=== PATIENT | female | born 1930 | race Caucasian/White ===

== ENCOUNTER → 2016-11-22 | Outpatient (CLI) | payer MEDICARE, OTHER ==
[~2016-11-22] MED LIST: AC500T PO; AMLO10TA2 PO; AMLO10TA82 PO; ASP325TEC PO; CIPR500T4 PO; CITA10TA7; CITA10TA70 PO; DCS100C PO; E400C PO; FENO135C PO; FENO135C4 PO; FERR-74 PO; FLUT12AE4 IH; GARL200T PO; GARLIC TABS PO; LACT1CAP8 PO; LOVA40TA2; LOVA40TA2 PO; METO-272 PO; METO25TA2 PO; METO50TA7 PO; NIAC1000 PO; NIAC500T9 PO; OMEP20CA12 PO; OMEP20TA2 PO; OMG1KC PO; OXYGEN; PRD20T PO; TIOT18CA IH; TRAM-21 PO
== END ==
LOC: RAD 15:43
PROVIDERS: ATTEND Internal Medicine Cardiovascular Disease
DX: I73.9 Peripheral vascular disease, unspecified (principal); I10 Essential (primary) hypertension; I25.10 Atherosclerotic heart disease of native coronary artery without angina pectoris
CPT/HCPCS: 93923

== ENCOUNTER → 2017-03-07 | Outpatient (CLI) | payer MEDICARE, OTHER ==
--- NOTE | 2017-03-07 09:57 | Diagnostic Imaging Report ---
PROCEDURE: US Gallbladder. TECHNIQUE: Multiple real-time grayscale images were obtained over the right upper quadrant in various projections. INDICATION: Right upper quadrant pain. FINDINGS: The pancreas is largely obscured by bowel gas. The liver demonstrates no focal mass. Hepatopetal flow in the portal vein seen. Portion of the left hepatic lobe is obscured by bowel gas. The gallbladder demonstrates multiple shadowing mobile stones. There is no wall thickening or pericholecystic fluid. Sonographic Vang sign reportedly negative. The CBD is obscured. The right kidney is 8.8 cm in length with no hydronephrosis or focal lesion. The renal parenchyma is echogenic suggestive of chronic medical renal disease. No fluid collection in the upper right quadrant seen. IMPRESSION: Cholelithiasis. Dictated by: Dictated on workstation # [id number]
== END ==
LOC: RAD 07:19
PROVIDERS: ATTEND Family Medicine
DX: R19.7 Diarrhea, unspecified (principal); K80.20 Calculus of gallbladder without cholecystitis without obstruction
CPT/HCPCS: 76705

== ENCOUNTER → 2017-03-30 | Outpatient (CLI) | payer MEDICARE, OTHER | LOC: CVS 20:22 | PROVIDERS: ATTEND Family Medicine | DX: R19.7 Diarrhea, unspecified (principal) | CPT/HCPCS: 87324; 87449 ==

== ENCOUNTER 2017-04-09 16:50 | Inpatient (IN) | payer MEDICARE, OTHER ==
[~2017-04-09] VITALS: Ht 167.6 cm; Wt 66.7 kg
[2017-04-09] VITALS (16 sets, daily range): BP systolic 120–198; BP diastolic 43–77
[~2017-04-09 16:50] MED LIST changes: -CITA10TA7; +CITA10TA7 PO; -LOVA40TA2
--- NOTE | 2017-04-09 17:10 | ED Abdominal Pain ---
General Stated Complaint: VOMITING BLOOD Source of Information: Patient Exam Limitations: No Limitations History of Present Illness Time Seen By Provider: 17:07 Initial Comments 2. Pubic abdominal pain that began today after having a bowel movement but she has not had for 3 days. She denies fevers or chills. She also reports vomiting once this morning and longterm staff reports that this was blood streaked vomit. However, the patient states he was either blood streaked or it was the cranberry juice that she just been drinking. She had a laparoscopic cholecystectomy the first of this month and spent 8-9 days in the intensive care unit afterwards. She has been in [facility] since returning home. Timing/Duration: 1-2 Days Severity/Quality: Moderate Radiation: No Radiation Allergies and Home Medications Allergies Coded Allergies: codeine (Verified Allergy, Unknown, 12/18/08) morphine (Verified Allergy, Unknown, 12/18/08) prednisone (Unverified Allergy, Unknown, 03/19/14) propoxyphene napsylate (Unverified Allergy, Unknown, 03/19/14) sulfamethoxazole (Verified Allergy, Unknown, 12/18/08) trimethoprim (Verified Allergy, Unknown, 12/18/08) Home Medications Amlodipine Besylate 10 Mg Tablet, 10 MG PO DAILY, (Reported) Aspirin 325 Mg Tabec, 325 MG PO DAILY, (Reported) Ciprofloxacin HCl 500 Mg Tablet, 500 MG PO BID, #14 Prescribed by: ADITHYA DORADO on 07/09/15 0939 Citalopram Hydrobromide 10 Mg Tablet, #90 (Reported) Fenofibric Acid (Choline) 135 Mg Capsule.dr, 135 MG PO HS, (Reported) Ferrous Sulfate 325 Mg Tablet, 325 MG PO HS, (Reported) Garlic 200 Mg Tablet, 200 MG PO BID, (Reported) Lovastatin 40 Mg Tablet, #90 (Reported) Metoprolol Succinate 50 Mg Tab.er.24h, 50 MG PO DAILY, (Reported) Niacin 500 Mg Tablet, 500 MG PO HS, (Reported) [place] 3 Polyunsat Fatty Acids 1,000 Mg Cap, 1,000 MG PO BID, (Reported) Omeprazole 20 Mg Capsule.dr, 20 MG PO DAILY, (Reported) Vitamin E Acetate 400 Unit Capsule, 400 UNIT PO HS, (Reported) Review of Systems Constitutional: see HPI EENTM: No Symptoms Reported Respiratory: No Symptoms Reported Cardiovascular: No Symptoms Reported Gastrointestinal: See HPI, Abdominal Pain, Nausea, Vomiting Genitourinary: No Symptoms Reported Musculoskeletal: no symptoms reported Skin: no symptoms reported Psychiatric/Neurological: No Symptoms Reported Endocrine: No Symptoms Reported Past Zpzwdgw-Dhxncd-Qmxlvq Hx Patient Social History Former Smoker/When Quit: Aug 30, 1980 Recent Foreign Travel: No Contact w/Someone Who Travel: No Immunizations Up To Date Tetanus Booster (TDap): Less than 5yrs Date of Pneumonia Vaccine: Oct 16, 2010 Date of Influenza Vaccine: Aug 20, 2013 Surgeries HX Surgeries: Yes (LEFT HAMMERTOE REPAIR, VENTRAL HERNIA REPAIR) Surgeries: Abdominal, Orthopedic Respiratory Hx Respiratory Disorders: Yes (O2 AT 2L AT NIGHT) Respiratory Disorders: Pneumonia Cardiovascular Hx 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) Cardiac Disorders: High Cholesterol, Hypertension Neurological Hx Neurological Disorders: No Reproductive System Hx Reproductive Disorders: No Sexually Transmitted Disease: No NAIL TECH History: Menopausal Genitourinary Hx Genitourinary Disorders: Yes Genitourinary Disorders: Renal Failure Gastrointestinal Hx Gastrointestinal Disorders: Yes (VENTRAL HERNIA REPAIR) Gastrointestinal Disorders: Abdominal Hernia Musculoskeletal Hx Musculoskeletal Disorders: Yes (LUMBAR RADICULOPATHY) Musculoskeletal Disorders: Arthritis, Chronic Back Pain Endocrine Hx Endocrine Disorders: No HEENT HX ENT Disorders: No Cancer Hx Cancer: No Psychosocial Hx Psychiatric Problems: No Behavioral Health Disorders: Anxiety Integumentary HX Skin/Integumentary Disorder: No Blood Transfusions Hx Blood Disorders: Yes (ANEMIA) Adverse Reaction to a Blood Tr: No Family Medical History Significant Family History: Heart Disease, Diabetes, Hypertension Family Medial History: Physical Exam Vital Signs VS - Last 72 Hours, by Label 04/09/17 16:52 Temp 96.0 Pulse 72 Resp 18 B/P (MAP) 102/76 Pulse Ox 96 O2 Delivery Room Air Capillary Refill : General Appearance: WD/WN, no apparent distress, other (frail,), thin HEENT: PERRL/EOMI, normal ENT inspection Neck: non-tender, full range of motion Respiratory: no respiratory distress, no accessory muscle use Cardiovascular: regular rate, rhythm, systolic murmur Gastrointestinal: normal bowel sounds, non tender, soft, other (she has a baseball sized hematoma to the right abdominal wall at the trocar insertion site.) Extremities: normal range of motion, non-tender, normal inspection Neurologic/Psychiatric: alert, normal mood/affect, oriented x 3 Skin: normal color, warm/dry Progress/Results/Core Measures Results/Orders Lab Results Laboratory Tests Test 04/09/17 17:04 Range/Units White Blood Count 13.3 H 4.3-11.0 10^3/uL Red Blood Count 2.27 L 4.35-5.85 10^6/uL Hemoglobin 6.9 *L 11.5-16.0 G/DL Hematocrit 23 L 35-52 % Mean Corpuscular Volume 100 H 80-99 FL Mean Corpuscular Hemoglobin 30 25-34 PG Mean Corpuscular Hemoglobin Concent 30 L 32-36 G/DL Red Cell Distribution Width 17.6 H 10.0-14.5 % Platelet Count 288 130-400 10^3/uL Mean Platelet Volume 10.9 H 7.4-10.4 FL Neutrophils (%) (Auto) 79 H 42-75 % Lymphocytes (%) (Auto) 15 12-44 % Monocytes (%) (Auto) 5 0-12 % Eosinophils (%) (Auto) 0 0-10 % Basophils (%) (Auto) 1 0-10 % Neutrophils # (Auto) 10.5 H 1.8-7.8 X 10^3 Lymphocytes # (Auto) 2.0 1.0-4.0 X 10^3 Monocytes # (Auto) 0.7 0.0-1.0 X 10^3 Eosinophils # (Auto) 0.1 0.0-0.3 10^3/uL Basophils # (Auto) 0.1 0.0-0.1 10^3/uL Lipase 75 8-78 U/L My Orders Orders - ZAK LIMA APRN Cbc With Automated Diff (04/09/17 16:56) Lipase (04/09/17 16:56) Ua Culture If Indicated (04/09/17 16:56) Saline Lock/Iv-Start (04/09/17 16:56) Ct Abdomen/Pelvis Wo (04/09/17 17:07) Red Cells Leukocytes Reduced (04/09/17 17:23) Pantoprazole Injection (Protonix Injecti (04/09/17 17:30) Type And Screen (04/09/17 17:23) Octreotide Injection (Sandostatin Inje (04/09/17 17:30) Ns (Ivpb) (Sodium C... W/Octreotide Inj (04/09/17 17:30) Chest 1 View, Ap/Pa Only (04/09/17 17:25) Octreotide Drip (Octreotide Drip) (04/09/17 17:33) Octreotide Drip (Octreotide Drip) (04/09/17 17:37) Ns (Ivpb) (Sodium Chloride 0.9% Ivpb Bag (04/09/17 17:37) Medications Given in ED Current Medications Medications Dose Ordered Sig/Hillary Route Start Time Stop Time Status Last Admin Dose Admin Octreotide Acetate 50 mcg ONCE ONCE IV 04/09/17 17:30 04/09/17 17:31 DC 04/09/17 17:59 50 MCG Pantoprazole 40 mg ONCE ONCE IV 04/09/17 17:30 04/09/17 17:31 DC 04/09/17 17:46 40 MG Sodium Chloride 100 ml @ ud STK-MED ONCE .ROUTE 04/09/17 17:37 04/09/17 17:43 DC 04/09/17 17:59 100 MLS/HR Vital Signs/I&O Vital Sign - Last 12Hours 04/09/17 16:52 Temp 96.0 Pulse 72 Resp 18 B/P (MAP) 102/76 Pulse Ox 96 O2 Delivery Room Air Diagnostic Imaging Diagonstic Imaging: Xray, CT Comments NAME: MADIE PISANO REC#: [id number] PT STATUS: REG ER : 1930 PHYSICIAN: ZAK LIMA SPINNER FRAME ADMIT DATE: 04/09/17/ER Draft Date of Exam:04/09/17 CT ABDOMEN/PELVIS WO PROCEDURE: CT abdomen and pelvis without contrast. TECHNIQUE: Multiple contiguous axial images were obtained through the abdomen and pelvis without the use of intravenous contrast. INDICATION: Bloody emesis. Right lower quadrant pain. COMPARISON: None available. FINDINGS: Evaluation of the abdominal viscera is mildly limited without contrast. Lower chest: Ill-defined airspace opacities within the lingula are age-indeterminate. Calcified right lower lobe pulmonary granulomas are noted. No pericardial pleural effusion. Atherosclerotic calcifications of the coronary arteries are present. Peritoneum: No free intraperitoneal air or fluid. Liver and biliary system: Unenhanced liver is normal. Cholecystectomy. No biliary duct dilatation. Spleen and Pancreas: Numerous calcified splenic granulomas are present. No splenomegaly. Unenhanced pancreas is grossly normal. Adrenals: Normal. tract: No renal or ureteral calculi. No obstructive uropathy. Uterus is poorly visualized and may be surgically absent versus atrophied due to patient's age. There is no suspicious adnexal mass. GI tract: Stomach is partially distended with heterogeneous debris, intrinsically. There is abnormal circumferential wall thickening of the distal esophagus and small hiatus hernia. Surgical changes are present about the gastroesophageal junction. No bowel obstruction. Sigmoid colon diverticulosis. There is minimal inflammation around a few of the sigmoid colon diverticula, suggestive of mild diverticulitis. No perforation or abscess formation. Vasculature and Lymph nodes: Normal caliber aorta with extensive atherosclerotic calcifications. No abdominal or pelvic lymphadenopathy. Musculoskeletal: No concerning osseous lesion. There is a subcutaneous mixed attenuation fluid collection in the lower anterior abdominal wall which measures 7.6 x 8.5 x 5.6 cm. This is superficial to the rectus abdominis muscle. Right hip bipolar hemiarthroplasty. Degenerative changes in the lumbar spine. IMPRESSION: 1. Heterogeneous increased attenuation of the stomach may relate to food debris. However, subacute intraluminal hemorrhage could also have this appearance given patient's reported bloody emesis. Abnormal wall thickening of the distal esophagus could relate to esophagitis. There are surgical changes at the GE junction. Consider gastroenterology consultation and correlation with patient's history. 2. Sigmoid colon diverticulosis with a mild inflammation around a few of the diverticula, suggestive of mild active diverticulitis. No perforation or abscess formation. 3. There is a mixed attenuation fluid collection in the right lower quadrant anterior abdominal wall which measures up to 8.5 cm. This likely represents a hematoma. Correlation with patient's history of blood thinner use is advised. Dictated on workstation # [id number] Dict: 04/09/171736 Trans: 04/09/17 174 [facility] [id number] Interpreted by: TRACEY RICCI MD Electronically signed by: NAME: MAD[facility] PISANO [facility] REC#: [id number] PT STATUS: REG ER : 1930 PHYSICIAN: ZAK LIMA SPINNER FRAME ADMIT DATE: 04/09/17/ER Draft Date of Exam:04/09/17 CHEST 1 VIEW, AP/PA ONLY INDICATION: Bloody emesis. COMPARISON: CT abdomen and pelvis performed concurrently. EXAMINATION: Single view of the chest was obtained. FINDINGS: Ill-defined airspace opacities are present in the bilateral upper lobes and lingula. No pleural effusion or pneumothorax. Borderline cardiomegaly. Atherosclerotic aorta. Normal pulmonary vasculature. IMPRESSION: New multifocal airspace opacities are likely due to multifocal pneumonia. Followup PA and lateral chest radiographs after appropriate medical management are advised in four weeks to ensure resolution. Dictated on workstation # [id number] Dict: 04/09/17 1750 Trans: 04/09/17 1759 [facility] [id number] Interpreted by: TRACEY RICCI MD Electronically signed by: Departure Communication Time/Spoke to Admitting Phy: 17:[address] Pappas notified of bleeding. In ER to see patient. Vitals stable. Type and screen being done. Time/Spoke to Consulting Physi: 18:28 Communication/Consulting Dr. DORADO notified of consult. Progress Notes 1751-vomitted bright red blood while in CT. Vitals stable. Impression Impression: Primary Impression: Upper GI hemorrhage Additional Impression: Pneumonia Disposition: ADMITTED INPATIENT Condition: Critical Decision to Admit Reason: Admit from ER (General) Decision to Admit/Date: Apr 09, 2017 Time/Decision to Admit Time: 18:29 Departure-Patient Inst. Referrals: ADITHYA DORADO MD (PCP/Family) Primary Care Physician ZAK LIMA APRN Apr 09, 2017 17:10
[2017-04-09 17:16] LABS: BASOPHILS # (AUTO) 0.1 10^3/uL (0.0-0.1); BASOPHILS % (AUTO) 1 % (0-10); EOSINOPHILS # (AUTO) 0.1 10^3/uL (0.0-0.3); EOSINOPHILS % (AUTO) 0 % (0-10); LYMPHOCYTES % (AUTO) 15 % (12-44); MEAN CORPUSCULAR HEMOGLOBIN 30 PG (25-34); MEAN CORPUSCULAR HGB CONC 30 G/DL (32-36); MEAN CORPUSCULAR VOLUME 100 FL (80-99); MEAN PLATELET VOLUME 10.9 FL (7.4-10.4); MONOCYTES # (AUTO) 0.7 X 10^3 (0.0-1.0); MONOCYTES % (AUTO) 5 % (0-12); NEUTROPHILS # (AUTO) 10.5 X 10^3 (1.8-7.8); NEUTROPHILS % (AUTO) 79 % (42-75); PLATELET COUNT 288 10^3/uL (130-400); RED BLOOD COUNT 2.27 10^6/uL (4.35-5.85); RED CELL DISTRIBUTION WIDTH 17.6 % (10.0-14.5); WHITE BLOOD COUNT 13.3 10^3/uL (4.3-11.0)
[2017-04-09] MEDS ORDERED: OCTREOTIDE (FOR SQ USE) 100 MCG/ML VIAL (SandoSTATIN) IV ONE (17:30)
[2017-04-09] MEDS ORDERED: OCTREOTIDE INJECTION 500 MCG in NS (IVPB) 99 ML IV SCH (17:30)
[2017-04-09] MEDS ORDERED: PANTOPRAZOLE 40 MG/10 ML (PROTONIX) VIAL IV ONE (17:30)
[2017-04-09] MEDS ORDERED: OCTREOTIDE DRIP KIT ONE ×2 (17:33→17:37)
[2017-04-09] MEDS ORDERED: NS (IVPB) 100 ML ONE (17:37)
--- NOTE | 2017-04-09 17:48 | Diagnostic Imaging Report ---
PROCEDURE: CT abdomen and pelvis without contrast. TECHNIQUE: Multiple contiguous axial images were obtained through the abdomen and pelvis without the use of intravenous contrast. INDICATION: Bloody emesis. Right lower quadrant pain. COMPARISON: None available. FINDINGS: Evaluation of the abdominal viscera is mildly limited without contrast. Lower chest: Ill-defined airspace opacities within the lingula are age-indeterminate. Calcified right lower lobe pulmonary granulomas are noted. No pericardial pleural effusion. Atherosclerotic calcifications of the coronary arteries are present. Peritoneum: No free intraperitoneal air or fluid. Liver and biliary system: Unenhanced liver is normal. Cholecystectomy. No biliary duct dilatation. Spleen and Pancreas: Numerous calcified splenic granulomas are present. No splenomegaly. Unenhanced pancreas is grossly normal. Adrenals: Normal. tract: No renal or ureteral calculi. No obstructive uropathy. Uterus is poorly visualized and may be surgically absent versus atrophied due to patient's age. There is no suspicious adnexal mass. GI tract: Stomach is partially distended with heterogeneous debris, intrinsically. There is abnormal circumferential wall thickening of the distal esophagus and small hiatus hernia. Surgical changes are present about the gastroesophageal junction. No bowel obstruction. Sigmoid colon diverticulosis. There is minimal inflammation around a few of the sigmoid colon diverticula, suggestive of mild diverticulitis. No perforation or abscess formation. Vasculature and Lymph nodes: Normal caliber aorta with extensive atherosclerotic calcifications. No abdominal or pelvic lymphadenopathy. Musculoskeletal: No concerning osseous lesion. There is a subcutaneous mixed attenuation fluid collection in the lower anterior abdominal wall which measures 7.6 x 8.5 x 5.6 cm. This is superficial to the rectus abdominis muscle. Right hip bipolar hemiarthroplasty. Degenerative changes in the lumbar spine. IMPRESSION: 1. Heterogeneous increased attenuation of the stomach may relate to food debris. However, subacute intraluminal hemorrhage could also have this appearance given patient's reported bloody emesis. Abnormal wall thickening of the distal esophagus could relate to esophagitis. There are surgical changes at the GE junction. Consider gastroenterology consultation and correlation with patient's history. 2. Sigmoid colon diverticulosis with a mild inflammation around a few of the diverticula, suggestive of mild active diverticulitis. No perforation or abscess formation. 3. There is a mixed attenuation fluid collection in the right lower quadrant anterior abdominal wall which measures up to 8.5 cm. This likely represents a hematoma. Correlation with patient's history of blood thinner use is advised. Dictated by: Dictated on workstation # [id number]
--- NOTE | 2017-04-09 17:59 | Diagnostic Imaging Report ---
INDICATION: Bloody emesis. COMPARISON: CT abdomen and pelvis performed concurrently. EXAMINATION: Single view of the chest was obtained. FINDINGS: Ill-defined airspace opacities are present in the bilateral upper lobes and lingula. No pleural effusion or pneumothorax. Borderline cardiomegaly. Atherosclerotic aorta. Normal pulmonary vasculature. IMPRESSION: New multifocal airspace opacities are likely due to multifocal pneumonia. Followup PA and lateral chest radiographs after appropriate medical management are advised in four weeks to ensure resolution. Dictated by: Dictated on workstation # [id number]
[2017-04-09] MEDS ORDERED: PIPERACILLIN SODIUM/TAZOBACTAM 4.5 GM in NS (IVPB) 100 ML IV ONE (18:15)
[2017-04-09] MEDS ORDERED: fentaNYL INJECTION 100 MCG/2 ML AMP IVP ONE (18:30)
[2017-04-09] MEDS ORDERED: HURRICAINE EXT TUBE (BENZOCAINE) ONE (18:58)
[2017-04-09] MEDS ORDERED: EPINEPHrine INJECTION 1 MG/ML AMP ONE (18:58)
[2017-04-09 19:03] LABS: ALBUMIN 2.6 GM/DL (3.2-4.5); BILIRUBIN,TOTAL 0.4 MG/DL (0.1-1.0); CALCIUM 8.2 MG/DL (8.5-10.1); CREATININE SERUM 2.28 MG/DL (0.60-1.30); ICTERUS -0.1 (-100-1.9); TOTAL PROTEIN 6.2 GM/DL (6.4-8.2)
[2017-04-09 19:04] LABS: POTASSIUM 6.7 MMOL/L (3.6-5.0)
[2017-04-09] MEDS ORDERED: NS IV 500 ML 500 ML ONE (19:18)
--- NOTE | 2017-04-09 19:28 | Consultation ---
History of Present Illness History of Present Illness Patient Consulted On(mireya/time) 04/09/17 19:22 Date of Admission History of Present Illness Consult requested by Jimy Mae for GI bleed Patient is an 86 year old female who began having emesis this morning. Noted to have blood streaks in it. Patient in ED had hematemesis. Patient not feeling well for last 2 day or so. Having difficulty with bowel movement and slight abdominal pain. Has had hematoma ruq that has been stable but more tender, since having laparoscopic cholecystectomy at [facility]. Family reports having extended ICU stay following cholecystectomy. Patient went to [facility] after being discharged. Prior to that she was living at home independently. Having hematemesis. Hgb found to be 6.9 being transfused. Patient feeling weaker than normal. Allergies and Home Medications Allergies Coded Allergies: codeine (Verified Allergy, Unknown, 12/18/08) morphine (Verified Allergy, Unknown, 12/18/08) prednisone (Unverified Allergy, Unknown, 03/19/14) propoxyphene napsylate (Unverified Allergy, Unknown, 03/19/14) sulfamethoxazole (Verified Allergy, Unknown, 12/18/08) trimethoprim (Verified Allergy, Unknown, 12/18/08) Home Medications Amlodipine Besylate 10 Mg Tablet, 10 MG PO DAILY, (Reported) Aspirin 325 Mg Tabec, 325 MG PO DAILY, (Reported) Ciprofloxacin HCl 500 Mg Tablet, 500 MG PO BID, #14 Prescribed by: ADITHYA DORADO on 07/09/15 0939 Citalopram Hydrobromide 10 Mg Tablet, #90 (Reported) Fenofibric Acid (Choline) 135 Mg Capsule.dr, 135 MG PO HS, (Reported) Ferrous Sulfate 325 Mg Tablet, 325 MG PO HS, (Reported) Garlic 200 Mg Tablet, 200 MG PO BID, (Reported) Lovastatin 40 Mg Tablet, #90 (Reported) Metoprolol Succinate 50 Mg Tab.er.24h, 50 MG PO DAILY, (Reported) Niacin 500 Mg Tablet, 500 MG PO HS, (Reported) [place] 3 Polyunsat Fatty Acids 1,000 Mg Cap, 1,000 MG PO BID, (Reported) Omeprazole 20 Mg Capsule.dr, 20 MG PO DAILY, (Reported) Vitamin E Acetate 400 Unit Capsule, 400 UNIT PO HS, (Reported) Past Iqmnnrj-Iojjkg-Cclako Hx Patient Social History Alcohol Use: Denies Use Recreational Drug Use: No Smoking Status: Never a Smoker Former Smoker/When Quit: Aug 30, 1980 Recent Foreign Travel: No Contact w/Someone Who Travel: No Recent Infectious Disease Expo: No Recent Hopitalizations: Yes (2009 ENDOCARDIACOMY) Immunizations Up To Date Tetanus Booster (TDap): Less than 5yrs Date of Pneumonia Vaccine: Oct 16, 2010 Date of Influenza Vaccine: Aug 20, 2013 Surgeries HX Surgeries: Yes (LEFT HAMMERTOE REPAIR, VENTRAL HERNIA REPAIR) Surgeries: Abdominal, Gallbladder, Orthopedic Respiratory Hx Respiratory Disorders: Yes (O2 AT 2L AT NIGHT) Respiratory Disorders: Pneumonia Cardiovascular Hx 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) Cardiac Disorders: High Cholesterol, Hypertension Neurological Hx Neurological Disorders: No Reproductive System Hx Reproductive Disorders: No Sexually Transmitted Disease: No 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 Genitourinary Hx Genitourinary Disorders: Yes Genitourinary Disorders: Renal Failure Gastrointestinal Hx Gastrointestinal Disorders: Yes (VENTRAL HERNIA REPAIR) Gastrointestinal Disorders: Abdominal Hernia, C-Diff Musculoskeletal Hx Musculoskeletal Disorders: Yes (LUMBAR RADICULOPATHY) Musculoskeletal Disorders: Arthritis, Chronic Back Pain Endocrine Hx Endocrine Disorders: No HEENT HX ENT Disorders: No Cancer Hx Cancer: No Psychosocial Hx Psychiatric Problems: No Behavioral Health Disorders: Anxiety Integumentary HX Skin/Integumentary Disorder: No Blood Transfusions Hx Blood Disorders: Yes (ANEMIA) Adverse Reaction to a Blood Tr: No Family Medical History Significant Family History: Heart Disease, Diabetes, Hypertension Family Medial History: Review of Systems-General Date Seen by Provider: Apr 09, 2017 Time Seen by Provider: 19:22 Constitutional: weakness EENTM: no symptoms reported Respiratory: no symptoms reported Cardiovascular: no symptoms reported Gastrointestinal: see HPI Genitourinary: no symptoms reported Musculoskeletal: no symptoms reported Skin: no symptoms reported Psychiatric/Neurological: No Symptoms Reported Physical Exam-General Problems Physical Exam Vital Signs Vital Sign - Last 12Hours 04/09/17 16:52 Temp 96.0 Pulse 72 Resp 18 B/P (MAP) 102/76 Pulse Ox 96 O2 Delivery Room Air Capillary Refill : Less Than 3 Seconds General Appearance: no apparent distress HEENT: normal ENT inspection Neck: supple Respiratory: no respiratory distress, no accessory muscle use Cardiovascular: regular rate, rhythm Gastrointestinal: other (slight tenderness right lower quadrant, hematoma ruq tender size of baseball) Rectal: deferred Back: normal inspection Extremities: normal range of motion Neurologic/Psychiatric: alert, oriented x 3 Skin: cool, pallor Data Review Labs Laboratory Tests 04/09/17 17:04: White Blood Count 13.3H, Red Blood Count 2.27L, Hemoglobin 6.9*L, Hematocrit 23L , Mean Corpuscular Volume 100H, Mean Corpuscular Hemoglobin 30, Mean Corpuscular Hemoglobin Concent 30L, Red Cell Distribution Width 17.6H, Platelet Count 288, Mean Platelet Volume 10.9H, Neutrophils (%) (Auto) 79H, Lymphocytes ( %) (Auto) 15, Monocytes (%) (Auto) 5, Eosinophils (%) (Auto) 0, Basophils (%) ( Auto) 1, Neutrophils # (Auto) 10.5H, Lymphocytes # (Auto) 2.0, Monocytes # (Auto ) 0.7, Eosinophils # (Auto) 0.1, Basophils # (Auto) 0.1, Sodium Level 137, Potassium Level 6.7*H, Chloride Level 114H, Carbon Dioxide Level 14L, Anion Gap 9, Blood Urea Nitrogen 59H, Creatinine 2.28H, Estimat Glomerular Filtration Rate 20, BUN/Creatinine Ratio 26H, Glucose Level 169H, Calcium Level 8.2L, Total Bilirubin 0.4, Aspartate Amino Transf (AST/SGOT) 37H, Alanine Aminotransferase (ALT/SGPT) 13, Alkaline Phosphatase 49, Total Protein 6.2L, Albumin 2.6L, Lipase 75 Assessment/Plan Assessment/Plan Assessment/Plan gi bleed-upper with hematemesis acute diverticulitis hematoma abdominal ruq from recent cholecystectomy anemia secondary to gi bleed patient and family discussed risks and benefits of egd and wish to proceed iv abx for diverticulitis hematoma on abdomen should resolve on own protonix 40 mg IV BID NPO IV fluids admitted to ICU Ct scan thickening of esophagus and debris in stomach, surgical changes of stomach, diverticulosis with some inflammation c/w diverticulitis ADARSH DIOP DO Apr 09, 2017 19:28
[2017-04-09] MEDS ORDERED: ONDANSETRON 4 MG/2 ML (SDV) Z0FRAN IV PRN (20:30)
[2017-04-09] MEDS ORDERED: proPOfol 200 MG/20 ML (DIPRIVAN) VIAL IV ONE (20:31)
--- NOTE | 2017-04-09 20:46 | Progress Note-Post Operative ---
Post-Operative Progess Note Surgeon (s)/Relief Charge Nurse (s) Surgeon ADARSH DIOP DO Relief Charge Nurse: NA Pre-Operative Diagnosis gi bleed Post-Operative Diagnosis upper GI bleed, large gastric clot, no active bleeding, duodenitis Procedure & Operative Findings Date of Procedure 04/09/17 Procedure Performed/Findings EGD Anesthesia Type per pupil personnel services director Estimated Blood Loss Estimated blood loss (mL): none Specimens/Packing Specimens Removed none ADARSH DIOP DO Apr 09, 2017 8:46 pm
[2017-04-09] MEDS ORDERED: HURRICAINE EXT TUBE (BENZOCAINE) XX ONE (21:00)
[2017-04-09] MEDS: OCTREOTIDE INJECTION 500 MCG in NS (IVPB) 99 ML IV SCH (21:41)
[2017-04-09] MEDS ORDERED: fentaNYL INJECTION 100 MCG/2 ML AMP ONE (21:53)
[2017-04-09] MEDS ORDERED: hydrALAZINE (APESOLINE) 20 MG/ML VIAL ONE (21:53)
[2017-04-09] MEDS: NS IV 1000 ML 1,000 ML IV SCH (22:04)
[2017-04-09] MEDS ORDERED: hydrALAZINE (APESOLINE) 20 MG/ML VIAL IV PRN (22:45)
[2017-04-09 22:50] LABS: BILIRUBIN,URINE NEGATIVE (NEGATIVE); KETONES,URINE NEGATIVE (NEGATIVE); LEUKOCYTE ESTERASE ,URINE 3+ (NEGATIVE); NITRITE,URINE NEGATIVE (NEGATIVE); PH,URINE 5 (5-9); PROTEIN,URINE 1+ (NEGATIVE); UROBILINOGEN,URINE NORMAL (NORMAL)
--- NOTE | 2017-04-09 23:40 | OPERATIVE REPORT ---
DATE OF SERVICE: PREOPERATIVE DIAGNOSIS: GI bleed. POSTOPERATIVE DIAGNOSES: Upper gastrointestinal bleed, large gastric clot, no active bleeding, duodenitis. PROCEDURE: EGD. 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 SURGEON: Adarsh Pappas DO. ESTIMATED BLOOD LOSS: None. COMPLICATIONS: None. INDICATIONS: The patient is an 86-year-old female who presented to the Emergency Department with hematemesis. She was found to have a hemoglobin of 6.9 and had a small amount of bright red blood that she had vomited earlier. She and family were explained risks and benefits of procedure and wished to proceed with the procedure. DESCRIPTION OF PROCEDURE: The patient was in the Intensive Care Unit. A timeout was performed. Once anesthetic was took place, the scope was inserted into the mouth, down the esophagus, which was then encountered in the distal portion with small amount of dark clot present at the GE junction. Scope was then continuing to be inserted into the stomach where a significant amount of clot was present. A very minimal bright red appearing blood present. Scope was continuing to be reinserted into the duodenum, which had a clot and some slightly bright red blood present as well. Copious amount of irrigation was used to irrigate the duodenum. There are no polyps or masses present. In the first portion of the duodenum, there were some slightly erythematous changes present, but no active bleeding. Scope was continued to be retracted back into the stomach where a significant amount of time was used to irrigate the stomach in trying to break up the clot, so the mucosal surfaces could be visualized. The clot was extremely adherent and the scope itself was used to try to suction and pushed some off the clot off which still was unable to be done. Again, copious amounts of irrigation were used to irrigate with my hand flushing and by a powered pump, but the clot was unable to be broken up. The scope was also retroflexed noting the clot going up into and towards the cardia and there is evidence of previous wrap. Again, copious amounts of irrigation were used to irrigate. There are no signs of any active bleeding present. After a long attempt was removing the clot, it was felt more appropriate to leave the clot and see how patient continues to do for this forward. Scope was then returned to its normal position, slowly withdrawn back into the distal esophagus. There were no active bleeding in the distal esophagus. There was one area that appears to be maybe having a small healing ulcer, but no significant erythematous changes, no polyps or masses present. Scope was continued to be slowly retracted until completely removed, noting no other pathology. The patient tolerated the procedure well without any complications. RECOMMENDATIONS: The patient with upper gastrointestinal bleed likely from a gastric ulcer. There was significant clot which could not be broken up in the mucosal surfaces, unable to be visualized underneath it. There does not appear to be any active bleeding. I will continue conservative management with transfusing as needed. Following hemoglobin, keeping the patient n.p.o. The patient is on octreotide and Protonix. If patient has continued blood loss, we will repeat EGD. If patient stabilizes well, we would recommend repeat colonoscopy in approximately 6 weeks to reevaluate. This was discussed with the patient and family. Job ID: [id number] DocumentID: [id number] Dictated Date: 04/09/2017 20:52:33 Stock Ranch Supervisor Date: 04/09/2017 23:39:42 Dictated By: ADARSH PAPPAS DO
[2017-04-10] VITALS (24 sets, daily range): BP systolic 115–190; BP diastolic 46–102
[2017-04-10] MEDS: PIPERACILLIN SODIUM/TAZOBACTAM 4.5 GM in NS (IVPB) 100 ML IV SCH ×3 (01:21→20:22)
[2017-04-10] MEDS ORDERED: OCTREOTIDE DRIP KIT ONE ×2 (02:46→02:50)
[2017-04-10] MEDS ORDERED: NS (IVPB) 100 ML ONE (02:50)
[2017-04-10] MEDS: OCTREOTIDE INJECTION 500 MCG in NS (IVPB) 99 ML IV SCH ×3 (03:15→22:30)
[2017-04-10] MEDS: fentaNYL INJECTION 100 MCG/2 ML AMP IV PRN ×3 (03:16→20:22)
[2017-04-10 05:55] LABS: ALBUMIN 2.8 GM/DL (3.2-4.5); BILIRUBIN,TOTAL 0.9 MG/DL (0.1-1.0); CALCIUM 8.3 MG/DL (8.5-10.1); CREATININE SERUM 2.36 MG/DL (0.60-1.30); ICTERUS 0.6 (-100-1.9); TOTAL PROTEIN 6.5 GM/DL (6.4-8.2)
[2017-04-10 05:57] LABS: POTASSIUM 6.2 MMOL/L (3.6-5.0)
--- NOTE | 2017-04-10 08:45 | Pulmonary Consultation ---
History of Present Illness History of Present Illness Date of Consultation 04/10/17 08:39 Time Seen by Provider: 08:39 Date of Admission History of Present Illness 86yo presented via EMS from [facility] with hematemesis and upper GIB. Pt was recently at [facility] and is s/p cholecystectomy. Pt had extended ICU stay at [facility] after surgery. Pt also complains of constipation and is very weak. Labs and radiology reviewed. Pt is requiring oxygen and CXR shows multifocal PNA. On admission Hb was 6.9 and she is now S/p transfusion and s/p EGD. I am consulted for ICU/pulmonary management. Allergies and Home Medications Allergies Coded Allergies: codeine (Verified Allergy, Unknown, 12/18/08) morphine (Verified Allergy, Unknown, 12/18/08) prednisone (Unverified Allergy, Unknown, 03/19/14) propoxyphene napsylate (Unverified Allergy, Unknown, 03/19/14) sulfamethoxazole (Verified Allergy, Unknown, 12/18/08) trimethoprim (Verified Allergy, Unknown, 12/18/08) Home Medications Amlodipine Besylate 10 Mg Tablet, 10 MG PO DAILY, (Reported) Aspirin 325 Mg Tabec, 325 MG PO DAILY, (Reported) Ciprofloxacin HCl 500 Mg Tablet, 500 MG PO BID, #14 Prescribed by: ADITHYA DORADO on 07/09/15 0939 Citalopram Hydrobromide 10 Mg Tablet, #90 (Reported) Fenofibric Acid (Choline) 135 Mg Capsule.dr, 135 MG PO HS, (Reported) Ferrous Sulfate 325 Mg Tablet, 325 MG PO HS, (Reported) Garlic 200 Mg Tablet, 200 MG PO BID, (Reported) Lovastatin 40 Mg Tablet, #90 (Reported) Metoprolol Succinate 50 Mg Tab.er.24h, 50 MG PO DAILY, (Reported) Niacin 500 Mg Tablet, 500 MG PO HS, (Reported) [place] 3 Polyunsat Fatty Acids 1,000 Mg Cap, 1,000 MG PO BID, (Reported) Omeprazole 20 Mg Capsule.dr, 20 MG PO DAILY, (Reported) Vitamin E Acetate 400 Unit Capsule, 400 UNIT PO HS, (Reported) Past Hjpmuzw-Xdndly-Dlkknb Hx Patient Social History Alcohol Use: Denies Use Recreational Drug Use: No Smoking Status: Never a Smoker Former Smoker/When Quit: Aug 30, 1980 Recent Foreign Travel: No Contact w/Someone Who Travel: No Recent Infectious Disease Expo: No Recent Hopitalizations: Yes (2009 ENDOCARDIACOMY) Physical Abuse Screen: No Sexual Abuse: No Immunizations Up To Date Tetanus Booster (TDap): Less than 5yrs Date of Pneumonia Vaccine: Oct 16, 2010 Date of Influenza Vaccine: Aug 20, 2013 Surgeries HX Surgeries: Yes (LEFT HAMMERTOE REPAIR, VENTRAL HERNIA REPAIR) Surgeries: Abdominal, Gallbladder, Orthopedic Respiratory Hx Respiratory Disorders: Yes (O2 AT 2L AT NIGHT) Respiratory Disorders: Pneumonia Cardiovascular Hx 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) Cardiac Disorders: High Cholesterol, Hypertension Neurological Hx Neurological Disorders: No Reproductive System : No Hx Reproductive Disorders: No Sexually Transmitted Disease: No 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 Genitourinary Hx Genitourinary Disorders: Yes Genitourinary Disorders: Renal Failure Gastrointestinal Hx Gastrointestinal Disorders: Yes (VENTRAL HERNIA REPAIR) Gastrointestinal Disorders: Abdominal Hernia, C-Diff Musculoskeletal Hx Musculoskeletal Disorders: Yes (LUMBAR RADICULOPATHY) Musculoskeletal Disorders: Arthritis, Chronic Back Pain Endocrine Hx Endocrine Disorders: No HEENT HX ENT Disorders: No Cancer Hx Cancer: No Psychosocial Hx Psychiatric Problems: No Behavioral Health Disorders: Anxiety Integumentary HX Skin/Integumentary Disorder: No Blood Transfusions Hx Blood Disorders: Yes (ANEMIA) Adverse Reaction to a Blood Tr: No Family Medical History Significant Family History: Heart Disease, Diabetes, Hypertension Family Medial History: Exam Exam Vital Signs Date Time Temp Pulse Resp B/P (MAP) Pulse Ox O2 Delivery O2 Flow Rate FiO2 04/10/17 08:03 Nasal Cannula 3.00 04/10/17 05:00 92 26 100 Nasal Cannula 3.00 04/10/17 04:00 91 17 172/73 98 Nasal Cannula 3.00 04/10/17 04:00 100 Nasal Cannula 3.00 04/10/17 03:00 95 22 149/66 99 Nasal Cannula 3.00 04/10/17 02:00 87 23 179/82 99 Nasal Cannula 3.00 04/10/17 01:00 89 04/10/17 01:00 87 25 164/69 99 Nasal Cannula 3.00 04/10/17 01:00 89 04/10/17 00:24 97.2 78 9 190/77 98 Nasal Cannula 3.00 04/10/17 00:16 97.2 04/10/17 00:00 100 Nasal Cannula 3.00 04/10/17 00:00 87 22 188/75 100 Nasal Cannula 3.00 04/09/17 23:30 79 18 177/70 99 Nasal Cannula 3.00 04/09/17 23:00 77 15 156/66 99 Nasal Cannula 3.00 04/09/17 22:30 97.6 78 22 134/57 94 Nasal Cannula 3.00 04/09/17 22:30 80 23 141/53 99 Nasal Cannula 3.00 04/09/17 22:29 97.1 77 25 149/70 96 OxyMask 3.00 04/09/17 22:06 97.2 79 22 175/72 96 OxyMask 8.00 04/09/17 22:00 75 23 175/72 100 OxyMask 3.00 04/09/17 21:30 73 24 198/77 99 OxyMask 5.00 04/09/17 21:00 74 25 178/63 98 OxyMask 10.00 04/09/17 20:30 69 30 139/67 90 Nasal Cannula 4.00 04/09/17 20:00 87 27 133/63 93 Nasal Cannula 4.00 04/09/17 19:47 97.0 93 16 124/71 92 Nasal Cannula 4.00 04/09/17 19:45 93 24 144/73 99 Nasal Cannula 2.00 04/09/17 19:32 97.2 82 14 137/56 100 Nasal Cannula 2.00 04/09/17 19:30 88 28 137/56 98 Nasal Cannula 2.00 04/09/17 19:20 Nasal Cannula 2.00 04/09/17 19:15 73 26 122/43 100 Nasal Cannula 2.00 04/09/17 19:00 96 Nasal Cannula 2.00 04/09/17 19:00 78 19 100 Nasal Cannula 2.00 04/09/17 19:00 79 04/09/17 19:00 79 04/09/17 18:45 97.4 78 16 120/53 100 Nasal Cannula 2.00 04/09/17 18:26 74 18 100 04/09/17 16:52 96.0 72 18 102/76 96 Room Air I & O 04/10/17 07:00 Intake Total 350 ml Output Total 250 ml Balance 100 ml General Appearance: No Apparent Distress, WD/WN Capillary Refill: Less Than 3 Seconds Gastrointestinal: other (slight tenderness right lower quadrant, hematoma ruq tender size of baseball) Results Lab Laboratory Tests 04/09/17 17:04 04/10/17 05:10 Assessment/Plan Assessment/Plan Acute upper GIB -S/P EGD and transfusion -octreotide gtt -change protonix to BID 40mg IV -SCDs for DVT ppx HCAP multifocal -Zosyn add renal dosed vancomycin -SVNS Debility/dementia -consulte PT/OT Metabolic acidosis -monitor -IVF 255 Clinical Quality Measures DVT/VTE Risk/Contraindication: Risk Factor Score Per Nursin RFS Level Per Nursing on Admit: 3=High JACK DEGROOT DO Apr 10, 2017 08:45
[2017-04-10] MEDS ORDERED: PANTOPRAZOLE 40 MG/10 ML (PROTONIX) VIAL IV SCH (09:00)
--- NOTE | 2017-04-10 09:17 | History & Physicial ---
History of Present Illness History of Present Illness Reason for visit/HPI PT IS AN 86 Y/O FEMALE WHO IS WELL KNOWN TO ME FROM CLINIC. SHE PRESENTED TO THE HOSPITAL AFTER HAVING WEAKNESS AND ABDOMINAL PAIN AND THEN AN EPISODE OF BLOODY EMESIS. PER STAFF, THEY DAY BEFORE SHE HAD NAUSEA WITH CONSTIPATION, WAS GIVEN AN ENEMA WITH POOR OUTCOME, THEN THE NEXT DAY HAD THE BLOODY EMESIS. SHE WAS FOUND TO HAVE BLOODY EMESIS IN THE EMERGENCY DEPARTMENT. SHE REPORTS THAT SHE HAS BEEN FEELING POORLY FOR A FEW DAYS PRIOR TO HOSPITALIZATION. ABOUT A MONTH AGO SHE WAS HOSPITALIZED WITH ACUTE CHOLECYSTITIS AND CHOLECYSTECTOMY. SHE WAS IN THE ICU FOR SEVERAL DAYS DUE TO ANEMIA, ACUTE ON CHRONIC RENAL FAILURE AND DEVELOPED CDIFF INFECTION - SHE WAS THEN DISCHARGED TO THE [facility] FOR STRENGTHENING. Date of Admission Apr 09, 2017 at 18:00 Time Seen by Provider: 09:00 I consulted on this patient on 04/10/17 09:17 Attending Physician Bill Diop DO Admitting Physician Adithya Garcia MD Consult Allergies and Home Medications Allergies Coded Allergies: codeine (Verified Allergy, Unknown, 12/18/08) morphine (Verified Allergy, Unknown, 12/18/08) prednisone (Unverified Allergy, Unknown, 03/19/14) propoxyphene napsylate (Unverified Allergy, Unknown, 03/19/14) sulfamethoxazole (Verified Allergy, Unknown, 12/18/08) trimethoprim (Verified Allergy, Unknown, 12/18/08) Home Medications Acetaminophen 650 Mg Tablet.er, 650 MG PO Q6H PRN for PAIN-MILD, (Reported) Amlodipine Besylate 5 Mg Tablet, 5 MG PO DAILY, (Reported) Ascorbic Acid 1,000 Mg Tablet, 1,000 MG PO DAILY, (Reported) Aspirin 325 Mg Tabec, 325 MG PO DAILY, (Reported) Cholecalciferol (Vitamin D3) 5,000 Unit Tablet, 5,000 UNIT PO DAILY, (Reported) Cholestyramine (with Sugar) 4 Gm Powd.pack, 4 GM PO BID, (Reported) Citalopram Hydrobromide 10 Mg Tablet, 10 MG PO DAILY, (Reported) Diphenoxylate HCl/Atropine 1 Each Tablet, 1 TAB PO Q6H PRN for DIARRHEA, ( Reported) Fenofibric Acid (Choline) 135 Mg Capsule.dr, 135 MG PO HS, (Reported) Ferrous Sulfate 325 Mg Tablet, 325 MG PO BID, (Reported) Furosemide 40 Mg Tablet, 40 MG PO DAILY, (Reported) Lovastatin 40 Mg Tablet, 40 MG PO HS, (Reported) Magnesium Oxide 400 Mg Tablet, 400 MG PO BID, (Reported) Metoprolol Succinate 50 Mg Tab.er.24h, 50 MG PO BID, (Reported) Multivitamin with Minerals 1 Each Tablet, 1 TAB PO DAILY, (Reported) Nystatin 15 Gm Cream..g., TP TID for 10 Days, (Reported) 10 DAY THERAPY STOP DATE 04-14-17 Ondansetron HCl 4 Mg Tab, 4 MG PO Q6H PRN for NAUSEA/VOMITING-1ST LINE, ( Reported) Simethicone 80 Mg Tab.chew, 160 MG PO TID, (Reported) START DATE 03-31-17 END DATE 04-14-17 TAKES 2 (80MG) TABLETS Simethicone 80 Mg Tab.chew, 160 MG PO TID PRN for GAS, (Reported) START DATE 04-15-17 TAKES 2 (80MG) TABLETS Past Gmwgpmi-Rhzzzi-Dvgbpk Hx Patient Social History Marrital Status: Living Status: LIVES AT HOME WITH HER GRANDDAUGHTER - NOW AT [facility] Employed/Student: retired Alcohol Use: Denies Use Recreational Drug Use: No Smoking Status: Never a Smoker Former smoker/When Quit: Aug 30, 1980 2nd Hand Smoke Exposure: Yes Physical Abuse Screen: No Sexual Abuse: No Recent Foreign Travel: No Contact w/other who traveled: No Recent Hopitalizations: Yes (2009 ENDOCARDIACOMY) Recent Infectious Disease Expo: No Immunizations Up To Date Tetanus Booster (TDap): Less than 5yrs Date of Pneumonia Vaccine: Oct 16, 2010 Date of Influenza Vaccine: Aug 20, 2013 Surgeries HX Surgeries: Yes (LEFT HAMMERTOE REPAIR, VENTRAL HERNIA REPAIR) Surgeries: Abdominal, Gallbladder, Orthopedic Respiratory Hx Respiratory Disorders: Yes (O2 AT 2L AT NIGHT) Cardiovascular Hx Cardiovascular Disorders: Yes (CAROTID ARTERY DISEASE/BILATERAL CAROTID) Cardiac Disorders: High Cholesterol, Hypertension Neurological Hx Neurological Disorders: No Reproductive System : No Hx Reproductive Disorders: No Sexually Transmitted Disease: No Female Reproductive Disorders: Denies Genitourinary Hx Genitourinary Disorders: Yes Genitourinary Disorders: Renal Failure Gastrointestinal Hx Gastrointestinal Disorders: Yes (VENTRAL HERNIA REPAIR) Gastrointestinal Disorders: Abdominal Hernia, C-Diff Musculoskeletal Hx Musculoskeletal Disorders: Yes (LUMBAR RADICULOPATHY) Musculoskeletal Disorders: Arthritis, Chronic Back Pain Endocrine Hx Endocrine Disorders: No HEENT HX ENT Disorders: No Cancer Hx Cancer: No Psychosocial Hx Psychiatric Problems: No Behavioral Health Disorders: Anxiety Integumentary HX Skin/Integumentary Disorder: No Blood Transfusions Hx Blood Disorders: Yes (ANEMIA) Adverse Reaction to a Blood Tr: No Reviewed Nursing Assessment Reviewed/Agree w Nursing PMH: Yes Family Medical History Significant Family History: Heart Disease, Diabetes, Hypertension Family Hx: Constitutional: No chills, No fever, malaise, weakness EENTM: No hoarseness, No mouth pain, No nose pain, No throat swelling Respiratory: No cough, No dyspnea on exertion, No short of breath Cardiovascular: No chest pain, No edema, No palpitations Gastrointestinal: RLQ, LLQ, abdominal pain (RLQ) Genitourinary: frequency, incontinence, other (CASTANO IN PLACE) Musculoskeletal: back pain, muscle weakness Skin: other (PRESSURE ULCER OF RIGHT HEEL, SACRAL PRESSURE ULCER) Psychiatric/Neurological: Denies Anxiety, Denies Depressed, Weakness All Other Systems Reviewed Negative Unless Noted: Yes Physical Exam Vital Signs Vital Sign - Last 12Hours 04/09/17 04/09/17 16:52 18:45 Temp 96.0 Pulse 72 Resp 18 B/P (MAP) 102/76 Pulse Ox 96 O2 Delivery Room Air O2 Flow Rate 2.00 Capillary Refill : Less Than 3 Seconds General Appearance: WD/WN, Mild Distress HEENT: PERRL/EOMI, Other (DRY MUCOSAL SURFACE) Neck: Full Range of Motion, Supple Respiratory: Chest Non Tender, No Accessory Muscle Use, Decreased Breath Sounds (IN BASES) Cardiovascular: Regular Rate, Rhythm, Systolic Murmur Gastrointestinal: Normal Bowel Sounds, Soft, Tenderness (EPIGASTRIUM AND BILATERAL LOWER QUADRANTS) Extremity: Normal Capillary Refill, Normal Range of Motion, Non Tender, No Calf Tenderness, No Pedal Edema Neurologic/Psychiatric: Alert, Oriented x3, No Motor/Sensory Deficits, Normal Mood/Affect Skin: Other (HEALING PRESSURE ULCER ON MEDIAL LEFT FOOT/ANKLE AND NEW AREA OF BOGGINESS ON BOTTOM OF HEEL ON LEFT, SACRAL DECUBITUS ULCER - VERY SMALL AREA LESS THAN 2CM) Assessment/Plan Assessment and Plan ACUTE GASTROINTESTINAL BLEED SEVERE ANEMIA PNEUMONIA HYPERTENSION WEAKNESS DEPRESSION CONSTIPATION ACUTE GASTROINTESTINAL BLEED - DEFER TO DR. DIOP - PT ON PROTONIX, OCTREOTIDE , MONITOR H AND H AND TRANSFUSE PRN. SEVERE ANEMIA - -TRANSFUSE PRN - MONITOR HEMOGLOBIN, WAITING ON ANEMIA ANALYZER - MAY NEED TO CONSIDER ERYTHROPOIETIN PNEUMONIA - PT ON IV ANTIBIOTICS - CONTINUE WITH ZOSYN, GIVE VANCOMYCIN AND MONITOR SERIAL CHEST XRAYS. HYPERTENSION - CHRONIC - RESTART HOME MEDICATIONS. WEAKNESS - WILL START PHYSICAL THERAPY ONCE GI BLEEDING IS STABILIZED. DEPRESSION -RESTART CELEXA CONSTIPATION - - MONITOR OUTPUT, PT RECENTLY HAD CDIFF, NEED TO START ON PROBIOTIC SOON PT ABLE TO TAKE PO. DVT PROPHYLAXIS - WILL USE SCD'S, BUT WILL NOT GIVE LOVENOX DUE TO HER GI BLEEDING Problems: Admission Diagnosis ACUTE GASTROINTESTINAL BLEED SEVERE ANEMIA PNEUMONIA HYPERTENSION WEAKNESS DEPRESSION CONSTIPATION Clinical Quality Measures DVT/VTE Risk/Contraindication: Risk Factor Score Per Nursin RFS Level Per Nursing on Admit: 3=High ADITHYA GARCIA MD Apr 10, 2017 09:17
--- NOTE | 2017-04-10 09:29 | Progress Note ---
Subjective Time Seen by Provider: 08:25 Subjective/Events-last exam Patient sleeping in bed. Easily aroused. Even respirations. No distress. No n/v or bloody stools since EGD. Patient reports minimal pain to abd. Objective Exam Vital Signs Date Time Temp Pulse Resp B/P (MAP) Pulse Ox O2 Delivery O2 Flow Rate FiO2 04/10/17 08:03 Nasal Cannula 3.00 04/10/17 07:00 89 04/10/17 05:00 92 26 100 Nasal Cannula 3.00 04/10/17 04:00 91 17 172/73 98 Nasal Cannula 3.00 04/10/17 04:00 100 Nasal Cannula 3.00 04/10/17 03:00 95 22 149/66 99 Nasal Cannula 3.00 04/10/17 02:00 87 23 179/82 99 Nasal Cannula 3.00 04/10/17 01:00 89 04/10/17 01:00 87 25 164/69 99 Nasal Cannula 3.00 04/10/17 01:00 89 04/10/17 00:24 97.2 78 9 190/77 98 Nasal Cannula 3.00 04/10/17 00:16 97.2 04/10/17 00:00 100 Nasal Cannula 3.00 04/10/17 00:00 87 22 188/75 100 Nasal Cannula 3.00 04/09/17 23:30 79 18 177/70 99 Nasal Cannula 3.00 04/09/17 23:00 77 15 156/66 99 Nasal Cannula 3.00 04/09/17 22:30 97.6 78 22 134/57 94 Nasal Cannula 3.00 04/09/17 22:30 80 23 141/53 99 Nasal Cannula 3.00 04/09/17 22:29 97.1 77 25 149/70 96 OxyMask 3.00 04/09/17 22:06 97.2 79 22 175/72 96 OxyMask 8.00 04/09/17 22:00 75 23 175/72 100 OxyMask 3.00 04/09/17 21:30 73 24 198/77 99 OxyMask 5.00 04/09/17 21:00 74 25 178/63 98 OxyMask 10.00 04/09/17 20:30 69 30 139/67 90 Nasal Cannula 4.00 04/09/17 20:00 87 27 133/63 93 Nasal Cannula 4.00 04/09/17 19:47 97.0 93 16 124/71 92 Nasal Cannula 4.00 04/09/17 19:45 93 24 144/73 99 Nasal Cannula 2.00 04/09/17 19:32 97.2 82 14 137/56 100 Nasal Cannula 2.00 04/09/17 19:30 88 28 137/56 98 Nasal Cannula 2.00 04/09/17 19:20 Nasal Cannula 2.00 04/09/17 19:15 73 26 122/43 100 Nasal Cannula 2.00 04/09/17 19:00 96 Nasal Cannula 2.00 04/09/17 19:00 78 19 100 Nasal Cannula 2.00 04/09/17 19:00 79 04/09/17 19:00 79 04/09/17 18:45 97.4 78 16 120/53 100 Nasal Cannula 2.00 04/09/17 18:26 74 18 100 04/09/17 16:52 96.0 72 18 102/76 96 Room Air I & O 04/10/17 07:00 Intake Total 350 ml Output Total 250 ml Balance 100 ml Capillary Refill : Less Than 3 Seconds General Appearance: No Apparent Distress, WD/WN Neck: Non Tender Respiratory: Chest Non Tender, No Accessory Muscle Use, No Respiratory Distress Cardiovascular: Regular Rate, Rhythm Gastrointestinal: non tender, soft, no organomegaly, other (slight tenderness right lower quadrant, hematoma ruq tender size of baseball) Extremity: Non Tender, No Calf Tenderness, No Pedal Edema Neurologic/Psychiatric: Normal Mood/Affect Results Lab Laboratory Tests Test 04/09/17 17:04 04/09/17 22:43 04/10/17 05:10 Range/Units White Blood Count 13.3 H 4.3-11.0 10^3/uL Red Blood Count 2.27 L 4.35-5.85 10^6/uL Hemoglobin 6.9 *L 9.7 #L 11.5-16.0 G/DL Hematocrit 23 L 29 L 35-52 % Mean Corpuscular Volume 100 H 80-99 FL Mean Corpuscular Hemoglobin 30 25-34 PG Mean Corpuscular Hemoglobin Concent 30 L 32-36 G/DL Red Cell Distribution Width 17.6 H 10.0-14.5 % Platelet Count 288 130-400 10^3/uL Mean Platelet Volume 10.9 H 7.4-10.4 FL Neutrophils (%) (Auto) 79 H 42-75 % Lymphocytes (%) (Auto) 15 12-44 % Monocytes (%) (Auto) 5 0-12 % Eosinophils (%) (Auto) 0 0-10 % Basophils (%) (Auto) 1 0-10 % Neutrophils # (Auto) 10.5 H 1.8-7.8 X 10^3 Lymphocytes # (Auto) 2.0 1.0-4.0 X 10^3 Monocytes # (Auto) 0.7 0.0-1.0 X 10^3 Eosinophils # (Auto) 0.1 0.0-0.3 10^3/uL Basophils # (Auto) 0.1 0.0-0.1 10^3/uL Sodium Level 137 139 135-145 MMOL/L Potassium Level 6.7 *H 6.2 H 3.6-5.0 MMOL/L Chloride Level 114 H 113 H 98-107 MMOL/L Carbon Dioxide Level 14 L 15 L 21-32 MMOL/L Anion Gap 9 11 5-14 MMOL/L Blood Urea Nitrogen 59 H 68 H 7-18 MG/DL Creatinine 2.28 H 2.36 H 0.60-1.30 MG/DL Estimat Glomerular Filtration Rate 20 19 BUN/Creatinine Ratio 26 H 29 H 0-20 Glucose Level 169 H 145 H 70-105 MG/DL Calcium Level 8.2 L 8.3 L 8.5-10.1 MG/DL Total Bilirubin 0.4 0.9 0.1-1.0 MG/DL Aspartate Amino Transf (AST/SGOT) 37 H 28 5-34 U/L Alanine Aminotransferase (ALT/SGPT) 13 12 0-55 U/L Alkaline Phosphatase 49 48 40-136 U/L Total Protein 6.2 L 6.5 6.4-8.2 GM/DL Albumin 2.6 L 2.8 L 3.2-4.5 GM/DL Lipase 75 8-78 U/L Urine Color YELLOW Urine Clarity SLIGHTLY CLOUDY Urine pH 5 5-9 Urine Specific Newman 1.015 L 1.016-1.022 Urine Protein 1+ H NEGATIVE Urine Glucose (UA) NEGATIVE NEGATIVE Urine Ketones NEGATIVE NEGATIVE Urine Nitrite NEGATIVE NEGATIVE Urine Bilirubin NEGATIVE NEGATIVE Urine Urobilinogen NORMAL NORMAL MG/DL Urine Leukocyte Esterase 3+ H NEGATIVE Urine RBC (Auto) NEGATIVE NEGATIVE Urine RBC NONE /HPF Urine WBC 10-25 H /HPF Urine Crystals NONE /LPF Urine Bacteria LARGE H /HPF Urine Casts NONE /LPF Urine Mucus NEGATIVE /LPF Urine Culture Indicated YES Laboratory Tests 04/09/17 17:04: White Blood Count 13.3H, Red Blood Count 2.27L, Hemoglobin 6.9*L, Hematocrit 23L , Mean Corpuscular Volume 100H, Mean Corpuscular Hemoglobin 30, Mean Corpuscular Hemoglobin Concent 30L, Red Cell Distribution Width 17.6H, Platelet Count 288, Mean Platelet Volume 10.9H, Neutrophils (%) (Auto) 79H, Lymphocytes ( %) (Auto) 15, Monocytes (%) (Auto) 5, Eosinophils (%) (Auto) 0, Basophils (%) ( Auto) 1, Neutrophils # (Auto) 10.5H, Lymphocytes # (Auto) 2.0, Monocytes # (Auto ) 0.7, Eosinophils # (Auto) 0.1, Basophils # (Auto) 0.1, Sodium Level 137, Potassium Level 6.7*H, Chloride Level 114H, Carbon Dioxide Level 14L, Anion Gap 9, Blood Urea Nitrogen 59H, Creatinine 2.28H, Estimat Glomerular Filtration Rate 20, BUN/Creatinine Ratio 26H, Glucose Level 169H, Calcium Level 8.2L, Total Bilirubin 0.4, Aspartate Amino Transf (AST/SGOT) 37H, Alanine Aminotransferase (ALT/SGPT) 13, Alkaline Phosphatase 49, Total Protein 6.2L, Albumin 2.6L, Lipase 75 04/09/17 22:43: Urine Color YELLOW, Urine Clarity SLIGHTLY CLOUDY, Urine pH 5, Urine Specific Newman 1.015L, Urine Protein 1+H, Urine Glucose (UA) NEGATIVE, Urine Ketones NEGATIVE, Urine Nitrite NEGATIVE, Urine Bilirubin NEGATIVE, Urine Urobilinogen NORMAL, Urine Leukocyte Esterase 3+H, Urine RBC (Auto) NEGATIVE, Urine RBC NONE , Urine WBC 10-25H, Urine Crystals NONE, Urine Bacteria LARGEH, Urine Casts NONE , Urine Mucus NEGATIVE, Urine Culture Indicated YES 04/10/17 05:10: Hemoglobin 9.7#L, Hematocrit 29L, Sodium Level 139, Potassium Level 6.2H, Chloride Level 113H, Carbon Dioxide Level 15L, Anion Gap 11, Blood Urea Nitrogen 68H, Creatinine 2.36H, Estimat Glomerular Filtration Rate 19, BUN/ Creatinine Ratio 29H, Glucose Level 145H, Calcium Level 8.3L, Total Bilirubin 0.9, Aspartate Amino Transf (AST/SGOT) 28, Alanine Aminotransferase (ALT/SGPT) 12, Alkaline Phosphatase 48, Total Protein 6.5, Albumin 2.8L Assessment/Plan Assessment/Plan Assessment/Plan gi bleed-upper with hematemesis. H&H 9.7 and 27 acute diverticulitis hematoma abdominal ruq from recent cholecystectomy anemia secondary to gi bleed iv abx for diverticulitis protonix 40 mg IV BID IV fluids NPO Mian-Patient reports no more hemoptysis. No abdominal pain. NPO. Transfused PRBC yesterday. No new complaints. General no acute distress heart reg lungs nonlabored abdomen soft nontender, right upper quadrant hematoma unchanged ext nontender agree with assessment above plan protonix bid, ABx for diverticulitis, NPO, follow hgb repeat egd outpatient but if continues to have significant anemia will do so earlier. Clinical Quality Measures DVT/VTE Risk/Contraindication: Risk Factor Score Per Nursin RFS Level Per Nursing on Admit: 3=High HANNAH OLMSTEAD APRN Apr 10, 2017 9:29 am ADARSH DIOP DO Apr 10, 2017 10:40 am
[2017-04-10] MEDS ORDERED: NYST15CR TP (09:46)
[2017-04-10] MEDS ORDERED: CHOL500044 PO (09:46)
[2017-04-10] MEDS ORDERED: AMLO5TAB2 PO (09:46)
[2017-04-10] MEDS ORDERED: SIME80TA16 PO (09:46)
[2017-04-10] MEDS ORDERED: ACET-2422 PO (09:46)
[2017-04-10] MEDS ORDERED: MAGN400T39 PO (09:46)
[2017-04-10] MEDS ORDERED: MULT-593 PO (09:46)
[2017-04-10] MEDS ORDERED: ASCO10006 PO (09:46)
[2017-04-10] MEDS ORDERED: ONDN4T PO ×2 (09:46)
[2017-04-10] MEDS ORDERED: DIPH1TAB PO (09:46)
[2017-04-10] MEDS ORDERED: CHOL4PAC16 PO (09:46)
[2017-04-10] MEDS ORDERED: FURO40TA4 PO (09:46)
[2017-04-10] MEDS: NS IV 1000 ML 1,000 ML IV SCH ×2 (09:53→23:10)
--- NOTE | 2017-04-10 14:44 | Occ Therapy Progress Note ---
Therapy Progress Note OT order received. Pt. in bed. Granddaughter in room. Pt. adamantly refuses OOB treatment. Spoke with her regarding previous functional abilities. Pt. states that she was at [facility]. States that the therapists made her get up even when she was in a lot of pain, and it "made things worse." OT asks pt. if the goal is to go back home, or to the NH. Pt. won't answer. Granddaughter states, "she wants me to make that decision, but maybe home with home health?" Pt. will look at OT, but quits answering questions. Pt. is educated about starting to get out of bed soon, as she has pneumonia, and needs to be stronger, especially if she wants to go home. Pt. wont verbalize understanding. All needs met and will check back as time allows, as pt. continues to deny out of bed activity. [id number] 1, visit no charge TORIBIO MARTIN OT Apr 10, 2017 14:44
--- NOTE | 2017-04-10 15:23 | Physical Therapy Progress Note ---
Therapy Progress Note Attempted PT eval. Spoke with nursing first. She reported her HgB had dropped and felt that getting pt to the EOB or standing would not be appropriate at this time. She did indicate that ROm of the legs would be okay, however a full assessment could not be completed at this time. Will attempt PT eval tomorrow. GENARO CORDON PT Apr 10, 2017 15:23
--- OUTSIDE RECORDS SUMMARY | 2017-04-10 18:43 | XMS REPORT | Continuity of Care Document ---
Author Author [facility] Organization [facility] Address Unknown Phone Unavailable Allergies Active Description Code Type Severity Reaction Onset Reported/Identified Relationship to Patient Clinical Status Yes codeine [id number] Drug Allergy Unknown N/A 12/18/2008 Yes morphine [id number] Drug Allergy Unknown N/A 12/18/2008 Yes sulfamethoxazole [id number] Drug Allergy Unknown N/A 12/18/2008 Yes trimethoprim [id number] Drug Allergy Unknown N/A 12/18/2008 Yes prednisone [id number] Drug Allergy Unknown N/A 03/19/2014 Yes propoxyphene napsylate [id number] Drug Allergy Unknown N/A 03/19/2014 Medications Problems Date Dx Coded Attending Type Code Diagnosis Diagnosed By 06/21/2011 Ot 272.4 HYPERLIPIDEMIA NEC/NOS 06/21/2011 Ot 388.01 PRESBYACUSIS 06/21/2011 Ot 403.90 HYPTNSV CHR KID DIS, UNSPEC, W CHR KD ST 06/21/2011 Ot 414.01 CORONARY ATHEROSCLEROSIS OF [place] CORON 06/21/2011 Ot 433.10 CAROTID ARTERY OCCLUSION W O CEREBRAL IN 06/21/2011 Ot 530.81 ESOPHAGEAL REFLUX 06/21/2011 Ot 553.3 DIAPHRAGMATIC HERNIA 06/21/2011 Ot 585.9 CHRONIC KIDNEY DISEASE, UNSPECIFIED 06/21/2011 Ot 715.90 OSTEOARTHROS NOS-UNSPEC 06/21/2011 Ot 760.9 MATERNAL COND NOS AFF NB 06/21/2011 Ot 794.31 ABNORM ELECTROCARDIOGRAM 06/21/2011 Ot 799.02 HYPOXEMIA 06/21/2011 Ot V46.2 SUPPLEMENTAL OXYGEN 06/21/2011 Ot V58.66 LONG-TERM (CURRENT) USE OF ASPIRIN 06/21/2011 Ot V58.69 OTH MED,LT,CURRENT USE 08/20/2011 Ot 272.4 HYPERLIPIDEMIA NEC/NOS 08/20/2011 Ot 275.2 DIS MAGNESIUM METABOLISM 08/20/2011 Ot 276.8 HYPOPOTASSEMIA 08/20/2011 Ot 311 DEPRESSIVE DISORDER NEC 08/20/2011 Ot 403.90 HYPTNSV CHR KID DIS, UNSPEC, W CHR KD ST 08/20/2011 Ot 414.01 CORONARY ATHEROSCLEROSIS OF [place] CORON 08/20/2011 Ot 486 PNEUMONIA, ORGANISM NOS 08/20/2011 Ot 553.3 DIAPHRAGMATIC HERNIA 08/20/2011 Ot 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 08/20/2011 Ot 585.9 CHRONIC KIDNEY DISEASE, UNSPECIFIED 08/20/2011 Ot V64.41 LAPAROSCOPIC SURGICAL PROC CONVERTED TO 08/25/2011 Ot 112.0 THRUSH 08/25/2011 Ot 272.4 HYPERLIPIDEMIA NEC/NOS 08/25/2011 Ot 275.2 DIS MAGNESIUM METABOLISM 08/25/2011 Ot 276.8 HYPOPOTASSEMIA 08/25/2011 Ot 285.9 ANEMIA NOS 08/25/2011 Ot 311 DEPRESSIVE DISORDER NEC 08/25/2011 Ot 403.90 HYPTNSV CHR KID DIS, UNSPEC, W CHR KD ST 08/25/2011 Ot 414.01 CORONARY ATHEROSCLEROSIS OF [place] CORON 08/25/2011 Ot 486 PNEUMONIA, ORGANISM NOS 08/25/2011 Ot 585.9 CHRONIC KIDNEY DISEASE, UNSPECIFIED 08/25/2011 Ot V58.75 AFTERCARE POST SURGERY TEETH,ORAL CAVITY 09/11/2012 Ot 285.9 ANEMIA NOS 09/11/2012 Ot 401.9 HYPERTENSION NOS 2012 Ot 285.9 ANEMIA NOS 2012 Ot 401.9 HYPERTENSION NOS 11/12/2012 Ot 272.4 HYPERLIPIDEMIA NEC/NOS 11/12/2012 Ot 311 DEPRESSIVE DISORDER NEC 11/12/2012 Ot 403.90 HYPTNSV CHR KID DIS, UNSPEC, W CHR KD ST 11/12/2012 Ot 414.01 CORONARY ATHEROSCLEROSIS OF [place] CORON 11/12/2012 Ot 496 CHR AIRWAY OBSTRUCT NEC 11/12/2012 Ot 553.21 INCISIONAL HERNIA 11/12/2012 Ot 568.0 PERITONEAL ZLCVXYGDE-TRJD-CQ/INF 11/12/2012 Ot 585.9 CHRONIC KIDNEY DISEASE, UNSPECIFIED 11/12/2012 Ot V04.81 ND FOR PROPHYLACTIC VACCIN AND INOCULATI 11/12/2012 Ot V15.82 HISTORY OF TOBACCO USE 12/08/2012 Ot 053.9 HERPES ZOSTER NOS 12/08/2012 Ot 272.4 HYPERLIPIDEMIA NEC/NOS 12/08/2012 Ot 285.9 ANEMIA NOS 12/08/2012 Ot 311 DEPRESSIVE DISORDER NEC 12/08/2012 Ot 403.90 HYPTNSV CHR KID DIS, UNSPEC, W CHR KD ST 12/08/2012 Ot 486 PNEUMONIA, ORGANISM NOS 12/08/2012 Ot 496 CHR AIRWAY OBSTRUCT NEC 12/08/2012 Ot 530.81 ESOPHAGEAL REFLUX 12/08/2012 Ot 564.00 UNSPEC CONSTIPATION 12/08/2012 Ot 585.3 CHRONIC KIDNEY DISEASE, STAGE III (MODER 12/08/2012 Ot 715.90 OSTEOARTHROS NOS-UNSPEC 12/14/2012 Ot 053.9 HERPES ZOSTER NOS 12/14/2012 Ot 272.4 HYPERLIPIDEMIA NEC/NOS 12/14/2012 Ot 276.1 HYPOSMOLALITY 12/14/2012 Ot 285.9 ANEMIA NOS 12/14/2012 Ot 311 DEPRESSIVE DISORDER NEC 12/14/2012 Ot 403.90 HYPTNSV CHR KID DIS, UNSPEC, W CHR KD ST 12/14/2012 Ot 486 PNEUMONIA, ORGANISM NOS 12/14/2012 Ot 496 CHR AIRWAY OBSTRUCT NEC 12/14/2012 Ot 530.81 ESOPHAGEAL REFLUX 12/14/2012 Ot 564.00 UNSPEC CONSTIPATION 12/14/2012 Ot 585.3 CHRONIC KIDNEY DISEASE, STAGE III (MODER 12/14/2012 Ot 715.90 OSTEOARTHROS NOS-UNSPEC 05/30/2013 SILVIANO SOSA MD Ot 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 05/30/2013 SILVIANO SOSA MD A Ot 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, BENIGN, W CHR KD ST 05/30/2013 SILVIANO SOSA MD Ot 585.3 CHRONIC KIDNEY DISEASE, STAGE III ( MODER 05/30/2013 SILVIANO SOSA MD Ot 588.0 RENAL OSTEODYSTROPHY 05/30/2013 SILVIANO SOSA MD Ot 791.0 PROTEINURIA 08/30/2013 MATILDE UNDERWOOD DPM Ot 735.0 HALLUX VALGUS 08/30/2013 MATILDE UNDERWOOD DPM Ot 735.4 OTHER HAMMER TOE 03/19/2014 ZAK LIMA APRN Ot 724.4 LUMBOSACRAL NEURITIS NOS 03/19/2014 ZAK LIMA APRN Ot 729.5 PAIN IN LIMB 10/06/2014 ADITHYA DORADO MD Ot 272.4 10/06/2014 ESTRADA STOVER, ADITHYA A Ot 401.9 10/06/2014 ESTRADA STOVER, ADITHYA A Ot V58.69 10/06/2014 ESTRADA STOVER, ADITHYA A Ot V72.62 12/10/2014 IAN STOVER, SILVIANO A Ot 268.9 12/10/2014 IAN STOVER, SILVIANO A Ot 285.21 12/10/2014 IAN MD, SILVIANO A Ot 403.10 12/10/2014 IAN MD, SILVIANO A Ot 585.3 12/10/2014 IAN MD, SILVIANO A Ot 588.0 12/10/2014 IAN MD, SILVIANO A Ot 791.0 01/12/2015 Ot 429.3 01/12/2015 Ot 786.52 01/12/2015 Ot E000.8 01/12/2015 Ot E888.9 01/16/2015 Ot 429.3 01/16/2015 Ot 786.52 01/16/2015 Ot E000.8 01/16/2015 Ot E888.9 01/27/2015 Ot 429.3 01/27/2015 Ot 786.52 01/27/2015 Ot E000.8 01/27/2015 Ot E888.9 04/08/2015 NEW, KEITH YoungStephen [employer]-C Ot 268.9 04/08/2015 NEW, KEITH VidalStephen [employer]-C Ot 285.21 04/08/2015 NEW, KEITH VidalStephen [employer]-C Ot 403.10 04/08/2015 NEW, KEITH VidalStephen [employer]-C Ot 585.3 04/08/2015 NEW, KEITH VidalStephen [employer]-C Ot 588.0 04/08/2015 NEW, KEITH VidalStephen [employer]-C Ot 790.21 04/08/2015 NEW, KEITH VidalStephen [employer]-C Ot 791.0 05/06/2015 NEW, KEITH YoungStephen [employer]ACH-C Ot 268.9 05/06/2015 NEW, KEITH YoungStephen [employer]-C Ot 285.21 05/06/2015 NEW, KEITH VidalStephen [employer]ACH-C Ot 403.10 05/06/2015 NEW, KEITH YoungStephen [employer]-C Ot 585.3 05/06/2015 NEW, KEITH YoungStephen [employer]-C Ot 588.0 05/06/2015 NEW, KEITH Vidal. [employer]ACH-C Ot 790.21 05/06/2015 NEW, KEITH Vidal. [employer]-C Ot 791.0 05/31/2015 NEW, KEITH Vidal. [employer]-C Ot 268.9 VITAMIN D DEFICIENCY NOS 05/31/2015 NEW, KEITH Vidal. [employer]ACH-C Ot 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 05/31/2015 NEW, KEITH Vidal. 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 [employer]ACH-C Ot 585.3 CHRONIC KIDNEY DISEASE, STAGE III (MODER 05/31/2015 NEW, KEITH Vidal. [employer]ACH-C Ot 588.0 RENAL OSTEODYSTROPHY 05/31/2015 NEW, KEITH G. [employer]ACH-C Ot 790.21 IMPAIRED FASTING GLUCOSE 05/31/2015 NEW, KEITH VidalStephen [employer]ACH-C Ot 791.0 PROTEINURIA 07/09/2015 ESTRADA STOVER, ADITHYA A Ot 276.51 DEHYDRATION 07/09/2015 ESTRADA STOVER, ADITHYA A Ot 298.9 PSYCHOSIS NOS 07/09/2015 ESTRADA STOVER, ADITHYA A Ot 584.9 ACUTE RENAL FAILURE, UNSPECIFIED 07/09/2015 ESTARDA STOVER, ADITHYA A Ot 585.9 CHRONIC KIDNEY DISEASE, UNSPECIFIED 07/09/2015 ESTRADA STOVER, ADITHYA A Ot 599.0 URIN TRACT INFECTION NOS 07/09/2015 ESTRADA STOVER, ADITHYA A Ot 787.91 DIARRHEA 07/09/2015 ESTRADA STOVER, ADITHYA A Ot V04.81 ND FOR PROPHYLACTIC VACCIN AND INOCULATI 09/01/2015 NEW, KEITH Young. [employer]ENNIS [employer]ACH-C Ot D63.1 09/01/2015 NEW, KEITH G. [employer]ACH-C Ot E55.9 09/01/2015 NEW, KEITH G. [employer]-C Ot E78.5 09/01/2015 NEW, KEITH G. [employer]-C Ot I12.9 09/01/2015 NEW, KEITH G. [employer]ACH-C Ot N18.3 09/01/2015 NEW, KEITH G. [employer]-C Ot N25.0 09/01/2015 NEW, KEITH G. [employer]ENN[employer]-C Ot R73.01 09/01/2015 NEW, KEITH G. [employer]-C Ot R80.9 01/25/2016 MIHAELA ALVARADOC, ALI FACP CCDS Ot I10 01/25/2016 MIHAELA STOVER FACC, ALI FACP CCDS Ot I25.10 01/25/2016 MIHAELA STOVER FACC, ALI FACP CCDS Ot R00.2 01/25/2016 MIHAELA STOVER FACC, ALI FACP CCDS Ot R06.02 01/25/2016 MIHAELA STOVER FACC, ALI FACP CCDS Ot R94.31 02/03/2016 Ot I10 ESSENTIAL (PRIMARY) HYPERTENSION 02/03/2016 Ot I25.10 ATHSCL HEART DISEASE OF [place] CORONARY 02/03/2016 Ot R00.2 PALPITATIONS 02/03/2016 Ot R06.02 SHORTNESS OF BREATH 02/03/2016 Ot R94.31 ABNORMAL ELECTROCARDIOGRAM [ECG] [EKG] 02/11/2016 MIHAELA STOVER FACC, ALI FACP CCDS Ot I10 ESSENTIAL (PRIMARY) HYPERTENSION 02/11/2016 [facility], [facility] FACP CCDS Ot I25.10 ATHSCL HEART DISEASE OF [place] CORONARY 02/11/2016 [facility], [facility]I FACP CCDS Ot R00.2 PALPITATIONS 02/11/2016 MIHAELA STOVER FACC, ALI FACP CCDS Ot R06.02 SHORTNESS OF BREATH 02/11/2016 MIHAELA STOVER FACC, ALI FACP CCDS Ot R94.31 ABNORMAL ELECTROCARDIOGRAM [ECG ] [EKG] 02/17/2016 MIHAELA ALVARADOC, ALI FACP CCDS Ot I10 ESSENTIAL (PRIMARY) HYPERTENSION 02/17/2016 MIHAELA ALVARADO, ALI FACP CCDS Ot I25.10 ATHSCL HEART DISEASE OF [place] CORONARY 02/17/2016 MIHAELA STOVER [facility], ALI FACP CCDS Ot R00.2 PALPITATIONS 02/17/2016 MIHAELA STOVER FAC, ALI FACP CCDS Ot R06.02 SHORTNESS OF BREATH 02/17/2016 MIHAELA ALVARADOC, ALI FACP CCDS Ot R94.31 ABNORMAL ELECTROCARDIOGRAM [ECG ] [EKG] 04/01/2016 TAHIRA FISCHER DO Ot S20.211A CONTUSION OF RIGHT FRONT WALL OF THORAX, 04/01/2016 TAHIRA FISCHER DO Ot S40.011A CONTUSION OF RIGHT SHOULDER, INITIAL ENC 04/01/2016 TAHIRA FISCHER DO Ot W01.0XXA FALL SAME LEV FROM SLIP/TRIP W/O STRIKE 04/01/2016 TAHIRA FISCHER DO Ot Y92.[address] 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, BENIGN, W CHR KD ST 04/01/2016 Ot 585.3 CHRONIC KIDNEY DISEASE, STAGE III (MODER 04/01/2016 Ot 588.0 RENAL OSTEODYSTROPHY 04/01/2016 ESTRADA STOVER, ADITHYA Peter Ot 719.45 JOINT PAIN-PELVIS 04/01/2016 ESTRADA STOVER, ADITHYA Peter Ot 959.6 HIP THIGH INJURY NOS 04/01/2016 ESTRADA STOVER, ADITHYA Peter Ot E000.8 OTHER EXTERNAL CAUSE STATUS 04/01/2016 ADITHYA DORADO MD Ot E849.0 ACCIDENT IN HOME 04/01/2016 ADITHYA DORADO MD Ot E888.9 FALL NOS 04/01/2016 ADITHYA DORADO MD Ot 272.4 HYPERLIPIDEMIA NEC/NOS 04/01/2016 ADITHYA DORADO MD Ot 285.9 ANEMIA NOS 04/01/2016 ADITHYA DORADO MD Ot 401.9 HYPERTENSION NOS 04/01/2016 ADITHYA DORADO MD Ot 593.9 RENAL URETERAL DIS NOS 04/01/2016 ADITHYA DORADO MD Ot V72.62 LAB EXAM ORDERED PART OF A ROUTINE GE 04/01/2016 ADITHYA DORADO MD Ot 786.09 RESPIRATORY ABNORM NEC 04/01/2016 ADITHYA DORADO MD Ot 786.2 COUGH 04/01/2016 Ot 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 04/01/2016 Ot 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, BENIGN, W CHR KD ST 04/01/2016 Ot 585.3 CHRONIC KIDNEY DISEASE, STAGE III (MODER 04/01/2016 Ot 588.0 RENAL OSTEODYSTROPHY 04/01/2016 Ot 791.0 PROTEINURIA 04/01/2016 SILVIANO SOSA MD A Ot 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 04/01/2016 ALEJANDRA SOSA MDETTE A Ot 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, BENIGN, W CHR KD ST 04/01/2016 SILVIANO SOSA MD Ot 585.3 CHRONIC KIDNEY DISEASE, STAGE III ( MODER 04/01/2016 IAN MD, SILVIANO A Ot 588.0 RENAL OSTEODYSTROPHY 04/01/2016 IAN STOVER, SILVIANO A Ot 791.0 PROTEINURIA 04/01/2016 SILVIANO SOSA MD A Ot 585.4 CHRONIC KIDNEY DISEASE, STAGE IV ( SEVERE 04/01/2016 UNDERWOOD DPM, MATILDE P Ot 735.4 OTHER HAMMER TOE 04/01/2016 UNDERWOOD DPM, MATILDE P Ot V72.84 EXAM PRE-OPERATIVE NOS 04/01/2016 UNDERWOOD DPM, MATILDE P Ot V74.8 SCREEN-BACTERIAL DIS NEC 04/01/2016 SILVIANO SOSA MD A Ot 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 04/01/2016 SILVIANO SOSA MD Ot 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, BENIGN, W CHR KD ST 04/01/2016 SILVIANO SOSA MD Ot 585.3 CHRONIC KIDNEY DISEASE, STAGE III ( MODER 04/01/2016 SILVIANO SOSA MD Ot 588.0 RENAL OSTEODYSTROPHY 04/01/2016 SILVIANO SOSA MD A Ot 791.0 PROTEINURIA 04/01/2016 ADITHYA DORADO MD Ot 786.2 COUGH 04/01/2016 SILVIANO SOSA MD A Ot 268.9 VITAMIN D DEFICIENCY NOS 04/01/2016 SILVIANO SOSA MD A Ot 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 04/01/2016 YUDI SOSA MDOINETTE A Ot 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, BENIGN, W CHR KD ST 04/01/2016 ALEJANDRA SOSA MDETTE A Ot 585.3 CHRONIC KIDNEY DISEASE, STAGE III ( MODER 04/01/2016 YUDI SOSA MDOINETTE A Ot 588.0 RENAL OSTEODYSTROPHY 04/01/2016 SILVIANO SOSA MD Ot 791.0 PROTEINURIA 04/01/2016 ADITHYA DORADO MD Ot 715.38 LOC OSTEOAR NOS-SITE NEC 04/01/2016 ADITHYA DORADO MD Ot 719.45 JOINT PAIN-PELVIS 04/01/2016 ADITHYA DORADO MD Ot 722.52 LUMB/LUMBOSAC DISC DEGEN 04/01/2016 ADITHYA DORADO MD Ot 781.2 ABNORMALITY OF GAIT 04/01/2016 SILVIANO SOSA MD Ot 268.9 VITAMIN D DEFICIENCY NOS 04/01/2016 SILVIANO SOSA MD Ot 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 04/01/2016 SILVIANO SOSA MD Ot 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62 LAB EXAM ORDERED PART OF A ROUTINE GE 04/01/2016 SILVIANO SOSA MD Ot 268.9 VITAMIN D DEFICIENCY NOS 04/01/2016 SILVIANO SOSA MD Ot 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 04/01/2016 SILVIANO SOSA MD Ot 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, BENIGN, W CHR KD ST 04/01/2016 IAN MD, SILVIANO A Ot 585.3 CHRONIC KIDNEY DISEASE, STAGE III ( MODER 04/01/2016 SILVIANO SOSA MD A Ot 588.0 RENAL OSTEODYSTROPHY 04/01/2016 SILVIANO SOSA MD A Ot 791.0 PROTEINURIA 04/01/2016 Ot 429.3 CARDIOMEGALY 04/01/2016 Ot 786.52 PAINFUL RESPIRATION 04/01/2016 Ot E000.8 OTHER EXTERNAL CAUSE STATUS 04/01/2016 Ot E888.9 FALL NOS 04/01/2016 NEW, KEITH So HEAD [employer]ENNIS [employer]ACH-C Ot 268.9 VITAMIN D DEFICIENCY NOS 04/01/2016 NEWKEITH HEAD TENNIS COACH-C Ot 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 04/01/2016 KEITH BEAUCHAMP HEAD TENNIS COACH-C Ot 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, BENIGN, W CHR KD ST 04/01/2016 KEITH BEAUCHAMP HEAD TENNIS COACH-C Ot 585.3 CHRONIC KIDNEY DISEASE, STAGE III (MODER 04/01/2016 NEW KEITH GStephen HEAD TENNIS COACH-C Ot 588.0 RENAL OSTEODYSTROPHY 04/01/2016 NEWKEITH GStephen HEAD TENNIS COACH-C Ot 790.21 IMPAIRED FASTING GLUCOSE 04/01/2016 NEW KEITH GStephen HEAD TENNIS COACH-C Ot 791.0 PROTEINURIA 04/01/2016 KEITH BEAUCHAMP GStephen HEAD TENNIS COACH-C Ot D63.1 ANEMIA IN CHRONIC KIDNEY DISEASE 04/01/2016 KEITH BEAUCHAMP HEAD TENNIS COACH-C Ot E55.9 VITAMIN D DEFICIENCY, UNSPECIFIED 04/01/2016 KEITH BEAUCHAMP GStephen HEAD TENNIS COACH-C Ot E78.5 HYPERLIPIDEMIA, UNSPECIFIED 04/01/2016 QUYNH KEITH So HEAD TENNIS COACH-C Ot I12.9 HYPERTENSIVE CHRONIC KIDNEY DISEASE W ST 04/01/2016 QUYNH KEITH So HEAD TENNIS COACH-C Ot N18.3 CHRONIC KIDNEY DISEASE, STAGE 3 (MODERAT 04/01/2016 QUYNH KEITH So HEAD TENNIS COACH-C Ot N25.0 RENAL OSTEODYSTROPHY 04/01/2016 QUYNH KEITH So HEAD TENNIS COACH-C Ot R73.01 IMPAIRED FASTING GLUCOSE 04/01/2016 QUYNH KEITH oS HEAD TENNIS COACH-C Ot R80.9 PROTEINURIA, UNSPECIFIED 04/01/2016 Ot I10 ESSENTIAL (PRIMARY) HYPERTENSION 04/01/2016 Ot I25.10 ATHSCL HEART DISEASE OF [place] CORONARY 04/01/2016 Ot R00.2 PALPITATIONS 04/01/2016 Ot R06.02 SHORTNESS OF BREATH 04/01/2016 Ot R94.31 ABNORMAL ELECTROCARDIOGRAM [ECG] [EKG] 04/01/2016 MIHAELA STOVER FACC, ALI FACP CCDS Ot I10 ESSENTIAL (PRIMARY) HYPERTENSION 04/01/2016 MIHAELA STOVER FACC, ALI FACP CCDS Ot I25.10 ATHSCL HEART DISEASE OF [place] CORONARY 04/01/2016 MIHAELA STOVER FACC, BETO FACP CCDS Ot R00.2 PALPITATIONS 04/01/2016 MIHAELA STOVER FACC, ALI FACP CCDS Ot R06.02 SHORTNESS OF BREATH 04/01/2016 MIHAELA STOVER FACC, ALI FACP CCDS Ot R94.31 ABNORMAL ELECTROCARDIOGRAM [ECG ] [EKG] 04/01/2016 MIHAELA STOVER FACC, ALI FACP CCDS Ot I10 ESSENTIAL (PRIMARY) HYPERTENSION 04/01/2016 MIHAELA STOVER FACC, ALI FACP CCDS Ot I25.10 ATHSCL HEART DISEASE OF [place] CORONARY 04/01/2016 MIHAELA STOVER FACC, BETO FACP CCDS Ot R00.2 PALPITATIONS 04/01/2016 MIHAELA STOVER FACC, ALI FACP CCDS Ot R06.02 SHORTNESS OF BREATH 04/01/2016 MIHAELA STOVER FACC, ALI FACP CCDS Ot R94.31 ABNORMAL ELECTROCARDIOGRAM [ECG ] [EKG] 04/01/2016 TAHIRA FISCHER DO Ot S20.211A CONTUSION OF RIGHT FRONT WALL OF THORAX, 04/01/2016 TAHIRA FISCHER DO Ot S40.011A CONTUSION OF RIGHT SHOULDER, INITIAL ENC 04/01/2016 TAHIRA FISCHER DO Ot W01.0XXA FALL SAME LEV FROM SLIP/TRIP W/O STRIKE 04/01/2016 TAHIRA FISCHER DO Ot Y92.[address] 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 11/22/2016 Ot 397.0 TRICUSPID VALVE DISEASE 11/22/2016 Ot 786.09 RESPIRATORY ABNORM NEC 11/22/2016 Ot 794.31 ABNORM ELECTROCARDIOGRAM 11/22/2016 Ot 786.09 RESPIRATORY ABNORM NEC 11/22/2016 Ot 794.31 ABNORM ELECTROCARDIOGRAM 11/22/2016 Ot V58.69 OTH MED,LT,CURRENT USE 11/22/2016 Ot V02.54 CARRIER, SUSP DELGADILLO METHICILLIN RESISTN S 11/22/2016 Ot 401.9 HYPERTENSION NOS 11/22/2016 Ot 553.3 DIAPHRAGMATIC HERNIA 11/22/2016 Ot V72.63 PRE-PROCEDURAL LABORATORY EXAMINATION 11/22/2016 Ot V74.8 SCREEN-BACTERIAL DIS NEC 11/22/2016 Ot 272.4 HYPERLIPIDEMIA NEC/NOS 11/22/2016 Ot 401.9 HYPERTENSION NOS 11/22/2016 Ot 285.9 ANEMIA NOS 11/22/2016 Ot 794.4 ABN KIDNEY FUNCT STUDY 11/22/2016 Ot 272.4 HYPERLIPIDEMIA NEC/NOS 11/22/2016 Ot 401.9 HYPERTENSION NOS 11/22/2016 Ot 429.3 CARDIOMEGALY 11/22/2016 Ot 786.2 COUGH 11/22/2016 Ot 272.4 HYPERLIPIDEMIA NEC/NOS 11/22/2016 Ot 401.9 HYPERTENSION NOS 11/22/2016 Ot 401.9 HYPERTENSION NOS 11/22/2016 Ot 429.3 CARDIOMEGALY 11/22/2016 Ot 786.2 COUGH 11/22/2016 Ot 920 CONTUSION FACE/SCALP/NCK 11/22/2016 Ot E000.8 OTHER EXTERNAL CAUSE STATUS 11/22/2016 Ot E888.9 FALL NOS 11/22/2016 Ot V76.12 OTH SCREEN MAMMO-MALIGN NEOPLASM OF [place] 11/22/2016 Ot 401.9 HYPERTENSION NOS 11/22/2016 Ot 593.9 RENAL URETERAL DIS NOS 11/22/2016 Ot 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 11/22/2016 Ot 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, BENIGN, W CHR KD ST 11/22/2016 Ot 585.3 CHRONIC KIDNEY DISEASE, STAGE III (MODER 11/22/2016 Ot 588.0 RENAL OSTEODYSTROPHY 11/22/2016 Ot 285.9 ANEMIA NOS 11/22/2016 Ot 401.9 HYPERTENSION NOS 11/22/2016 Ot 285.9 ANEMIA NOS 11/22/2016 Ot 401.9 HYPERTENSION NOS 11/22/2016 Ot 401.9 HYPERTENSION NOS 11/22/2016 Ot 553.20 VENTRAL HERNIA NOS 11/22/2016 Ot V72.63 PRE-PROCEDURAL LABORATORY EXAMINATION 11/22/2016 Ot V72.81 HUXF-BHH-MIRVVSDOD CARDIOVASCULAR 11/22/2016 Ot V74.8 SCREEN-BACTERIAL DIS NEC 11/22/2016 Ot 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 11/22/2016 Ot 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, BENIGN, W CHR KD ST 11/22/2016 Ot 585.3 CHRONIC KIDNEY DISEASE, STAGE III (MODER 11/22/2016 Ot 588.0 RENAL OSTEODYSTROPHY 11/22/2016 ESTRADA STOVER, ADITHYA Peter Ot 719.45 JOINT PAIN-PELVIS 11/22/2016 ESTRADA STOVER, ADITHYA Peter Ot 959.6 HIP THIGH INJURY NOS 11/22/2016 ADITHYA DORADO MD Ot E000.8 OTHER EXTERNAL CAUSE STATUS 11/22/2016 ADITHYA DORADO MD Ot E849.0 ACCIDENT IN HOME 11/22/2016 ADITHYA DORADO MD Ot E888.9 FALL NOS 11/22/2016 ADITHYA DORADO MD Ot 272.4 HYPERLIPIDEMIA NEC/NOS 11/22/2016 ADITHYA DORADO MD Ot 285.9 ANEMIA NOS 11/22/2016 ADITHYA DORADO MD Ot 401.9 HYPERTENSION NOS 11/22/2016 ADITHYA DORADO MD Ot 593.9 RENAL URETERAL DIS NOS 11/22/2016 ADITHYA DORADO MD Ot V72.62 LAB EXAM ORDERED PART OF A ROUTINE GE 11/22/2016 ADITHYA DORADO MD Ot 786.09 RESPIRATORY ABNORM NEC 11/22/2016 ADITHYA DORADO MD Ot 786.2 COUGH 11/22/2016 Ot 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 11/22/2016 Ot 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, BENIGN, W CHR KD ST 11/22/2016 Ot 585.3 CHRONIC KIDNEY DISEASE, STAGE III (MODER 11/22/2016 Ot 588.0 RENAL OSTEODYSTROPHY 11/22/2016 Ot 791.0 PROTEINURIA 11/22/2016 SILVIANO SOSA MD A Ot 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 11/22/2016 IANSILVIANO FRANCIS MD Ot 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, BENIGN, W CHR KD ST 11/22/2016 IANSILVIANO FRANCIS MD Ot 585.3 CHRONIC KIDNEY DISEASE, STAGE III ( MODER 11/22/2016 IANSILVIANO FRANCIS MD Ot 588.0 RENAL OSTEODYSTROPHY 11/22/2016 SILVIANO SOSA MD Ot 791.0 PROTEINURIA 11/22/2016 SILVIANO SOSA MD Ot 585.4 CHRONIC KIDNEY DISEASE, STAGE IV ( SEVERE 11/22/2016 UNDER[place]OD DPM, MATILDE P Ot 735.4 OTHER HAMMER TOE 11/22/2016 UNDERWOOD DPM, MATILDE P Ot V72.84 EXAM PRE-OPERATIVE NOS 11/22/2016 UNDERWOOD DPM, MATILDE P Ot V74.8 SCREEN-BACTERIAL DIS NEC 11/22/2016 SILVIANO SOSA MD Ot 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 11/22/2016 SILVIANO SOSA MD Ot 403.10 HYPTNSV [facility] KID DIS, BENIGN, W CHR KD ST 11/22/2016 SILVIANO SOSA MD Ot 585.3 CHRONIC KIDNEY DISEASE, STAGE III ( MODER 11/22/2016 SILVIANO SOSA MD Ot 588.0 RENAL OSTEODYSTROPHY 11/22/2016 SILVIANO SOSA MD Ot 791.0 PROTEINURIA 11/22/2016 ADITHYA DORADO MD Ot 786.2 COUGH 11/22/2016 SILVIANO SOSA MD Ot 268.9 VITAMIN D DEFICIENCY NOS 11/22/2016 SILVIANO SOSA MD A Ot 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 11/22/2016 SILVIANO SOSA MD Ot 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, BENIGN, W CHR KD ST 11/22/2016 SILVIANO SOSA MD Ot 585.3 CHRONIC KIDNEY DISEASE, STAGE III ( MODER 11/22/2016 SILVIANO SOSA MD Ot 588.0 RENAL OSTEODYSTROPHY 11/22/2016 SILVIANO SOSA MD Ot 791.0 PROTEINURIA 11/22/2016 ADIHTYA DORADO MD Ot 715.38 LOC OSTEOAR NOS-SITE NEC 11/22/2016 ADITHYA DORADO MD Ot 719.45 JOINT PAIN-PELVIS 11/22/2016 ADITHYA DORADO MD Ot 722.52 LUMB/LUMBOSAC DISC DEGEN 11/22/2016 ADITHYA DORADO MD Ot 781.2 ABNORMALITY OF GAIT 11/22/2016 SILVIANO SOSA MD Ot 268.9 VITAMIN D DEFICIENCY NOS 11/22/2016 SILVIANO SOSA MD Ot 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 11/22/2016 SILVIANO SOSA MD Ot 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62 LAB EXAM ORDERED PART OF A ROUTINE GE 11/22/2016 SILVIANO SOSA MD Ot 268.9 VITAMIN D DEFICIENCY NOS 11/22/2016 SILVIANO SOSA MD Ot 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 11/22/2016 SILVIANO SOSA MD Ot 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, BENIGN, W CHR KD ST 11/22/2016 SILVIANO SOSA MD Ot 585.3 CHRONIC KIDNEY DISEASE, STAGE III ( MODER 11/22/2016 SILVIANO SOSA MD Ot 588.0 RENAL OSTEODYSTROPHY 11/22/2016 SILVIANO SOSA MD Ot 791.0 PROTEINURIA 11/22/2016 Ot 429.3 CARDIOMEGALY 11/22/2016 Ot 786.52 PAINFUL RESPIRATION 11/22/2016 Ot E000.8 OTHER EXTERNAL CAUSE STATUS 11/22/2016 Ot E888.9 FALL NOS 11/22/2016 NEW, KEITH So HEAD TENNIS COACH-C Ot 268.9 VITAMIN D DEFICIENCY NOS 11/22/2016 NEWKEITH HEAD TENNIS COACH-C Ot 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 11/22/2016 KEITH BEAUCHAMP HEAD TENNIS COACH-C Ot 403.10 [place] [facility] KID DIS, BENIGN, W CHR KD ST 11/22/2016 KEITH BEAUCHAMP HEAD TENNIS COACH-C Ot 585.3 CHRONIC KIDNEY DISEASE, STAGE III (MODER 11/22/2016 NEW, KEITH So HEAD TENNIS COACH-C Ot 588.0 RENAL OSTEODYSTROPHY 11/22/2016 NEWKEITH HEAD TENNIS COACH-C Ot 790.21 IMPAIRED FASTING GLUCOSE 11/22/2016 KEITH BEAUCHAMP HEAD [employer]IS [employer]-C Ot 791.0 PROTEINURIA 11/22/2016 KEITH BEAUCHAMP HEAD [employer]IS [employer]-C Ot 268.9 VITAMIN D DEFICIENCY NOS 11/22/2016 KEITH BEAUCHAMP HEAD [employer]ENNIS [employer]-C Ot 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 HEAD TENNIS COACH-C Ot 588.0 RENAL OSTEODYSTROPHY 11/22/2016 NEWKEITH GStephen HEAD TENNIS COACH-C Ot 790.21 IMPAIRED FASTING GLUCOSE 11/22/2016 NEW KEITH G. HEAD TENNIS COACH-C Ot 791.0 PROTEINURIA 11/22/2016 NEW, KEITH So HEAD TENNIS COACH-C Ot D63.1 ANEMIA IN CHRONIC KIDNEY DISEASE 11/22/2016 QUYNH KEITH So HEAD TENNIS COACH-C Ot E55.9 VITAMIN D DEFICIENCY, UNSPECIFIED 11/22/2016 QUYNH KEITH So HEAD TENNIS COACH-C Ot E78.5 HYPERLIPIDEMIA, UNSPECIFIED 11/22/2016 NEW KEITH So HEAD TENNIS COACH-C Ot I12.9 HYPERTENSIVE CHRONIC KIDNEY DISEASE W ST 11/22/2016 NEW KEITH So HEAD TENNIS [employer]ACH-C Ot N18.3 CHRONIC KIDNEY DISEASE, STAGE 3 (MODERAT 11/22/2016 NEW KEITH So HEAD TENNIS COACH-C Ot N25.0 RENAL OSTEODYSTROPHY 11/22/2016 QUYNH KEITH So HEAD TENNIS COACH-C Ot R73.01 IMPAIRED FASTING GLUCOSE 11/22/2016 NEW KEITH So HEAD TENNIS COACH-C Ot R80.9 PROTEINURIA, UNSPECIFIED 11/22/2016 Ot I10 ESSENTIAL (PRIMARY) HYPERTENSION 11/22/2016 Ot I25.10 ATHSCL HEART DISEASE OF [place] CORONARY 11/22/2016 Ot R00.2 PALPITATIONS 11/22/2016 Ot R06.02 SHORTNESS OF BREATH 11/22/2016 Ot R94.31 ABNORMAL ELECTROCARDIOGRAM [ECG] [EKG] 11/22/2016 MIHAELA STOVER FACC, BETO FACP CCDS Ot I10 ESSENTIAL (PRIMARY) HYPERTENSION 11/22/2016 MIHAELA STOVER FACC, BETO FACP CCDS Ot I25.10 ATHSCL HEART DISEASE OF [place] CORONARY 11/22/2016 MIHAELA STOVER FACC, BETO FACP CCDS Ot R00.2 PALPITATIONS 11/22/2016 MIHAELA STOVER FACC, ALI FACP CCDS Ot R06.02 SHORTNESS OF BREATH 11/22/2016 MIHAELA STOVER FACC, BETO FACP CCDS Ot R94.31 ABNORMAL ELECTROCARDIOGRAM [ECG ] [EKG] 11/22/2016 MIHAELA STOVER FACC, BETO FACP CCDS Ot I10 ESSENTIAL (PRIMARY) HYPERTENSION 11/22/2016 MIHAELA STOVER FACC, ALI FACP CCDS Ot I25.10 ATHSCL HEART DISEASE OF [place] CORONARY 11/22/2016 MIHAELA STOVER FACC, BETO FACP CCDS Ot R00.2 PALPITATIONS 11/22/2016 MIHAELA STOVER FACC, BETO FACP CCDS Ot R06.02 SHORTNESS OF BREATH 11/22/2016 MIHAELA STOVER FACC, ALI FACP CCDS Ot R94.31 ABNORMAL ELECTROCARDIOGRAM [ECG ] [EKG] 11/23/2016 MIHAELA STOVER FACC, ALI FACP CCDS Ot I10 ESSENTIAL (PRIMARY) HYPERTENSION 11/23/2016 MIHAELA STOVER FACC, ALI FACP CCDS Ot I25.10 ATHSCL HEART DISEASE OF [place] CORONARY 11/23/2016 MIHAELA STOVER FACC, ALI FACP CCDS Ot I73.9 PERIPHERAL VASCULAR DISEASE, UNSPECIFIED 12/16/2016 MIHAELA STOVER FACC, ALI FACP CCDS Ot I10 ESSENTIAL (PRIMARY) HYPERTENSION 12/16/2016 MIHAELA STOVER FACC, BETO FACP CCDS Ot I25.10 ATHSCL HEART DISEASE OF [place] CORONARY 12/16/2016 MIHAELA STOVER FACC, ALI FACP CCDS Ot I73.9 PERIPHERAL VASCULAR DISEASE, UNSPECIFIED 03/07/2017 Ot 272.4 HYPERLIPIDEMIA NEC/NOS 03/07/2017 Ot 401.9 HYPERTENSION NOS 03/07/2017 Ot 429.3 CARDIOMEGALY 03/07/2017 Ot 786.2 COUGH 03/07/2017 Ot 272.4 HYPERLIPIDEMIA NEC/NOS 03/07/2017 Ot 401.9 HYPERTENSION NOS 03/07/2017 Ot 401.9 HYPERTENSION NOS 03/07/2017 Ot 429.3 CARDIOMEGALY 03/07/2017 Ot 786.2 COUGH 03/07/2017 Ot 920 CONTUSION FACE/SCALP/NCK 03/07/2017 Ot E000.8 OTHER EXTERNAL CAUSE STATUS 03/07/2017 Ot E888.9 FALL NOS 03/07/2017 Ot V76.12 OTH SCREEN MAMMO-MALIGN NEOPLASM OF [place] 03/07/2017 Ot 401.9 HYPERTENSION NOS 03/07/2017 Ot 593.9 RENAL URETERAL DIS NOS 03/07/2017 Ot 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 03/07/2017 Ot 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, BENIGN, W CHR KD ST 03/07/2017 Ot 585.3 CHRONIC KIDNEY DISEASE, STAGE III (MODER 03/07/2017 Ot 588.0 RENAL OSTEODYSTROPHY 03/07/2017 Ot 285.9 ANEMIA NOS 03/07/2017 Ot 401.9 HYPERTENSION NOS 03/07/2017 Ot 285.9 ANEMIA NOS 03/07/2017 Ot 401.9 HYPERTENSION NOS 03/07/2017 Ot 401.9 HYPERTENSION NOS 03/07/2017 Ot 553.20 VENTRAL HERNIA NOS 03/07/2017 Ot V72.63 PRE-PROCEDURAL LABORATORY EXAMINATION 03/07/2017 Ot V72.81 UJAH-SDT-CICFHOYPP CARDIOVASCULAR 03/07/2017 Ot V74.8 SCREEN-BACTERIAL DIS NEC 03/07/2017 Ot 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 03/07/2017 Ot 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, BENIGN, W CHR KD ST 03/07/2017 Ot 585.3 CHRONIC KIDNEY DISEASE, STAGE III (MODER 03/07/2017 Ot 588.0 RENAL OSTEODYSTROPHY 03/07/2017 ESTRADA STOVER, ADITHYA Peter Ot 719.45 JOINT PAIN-PELVIS 03/07/2017 ESTRADA STOVER, ADITHYA Peter Ot 959.6 HIP THIGH INJURY NOS 03/07/2017 ESTRADA STOVER, ADITHYA Peter Ot E000.8 OTHER EXTERNAL CAUSE STATUS 03/07/2017 ADITHYA DORADO MD Ot E849.0 ACCIDENT IN HOME 03/07/2017 ADITHYA DORADO MD Ot E888.9 FALL NOS 03/07/2017 ADITHYA DORADO MD Ot 272.4 HYPERLIPIDEMIA NEC/NOS 03/07/2017 ADITHYA DORADO MD Ot 285.9 ANEMIA NOS 03/07/2017 ADITHYA DORADO MD Ot 401.9 HYPERTENSION NOS 03/07/2017 ADITHYA DORADO MD Ot 593.9 RENAL URETERAL DIS NOS 03/07/2017 ADITHYA DORADO MD Ot V72.62 LAB EXAM ORDERED PART OF A ROUTINE GE 03/07/2017 ADITHYA DORADO MD Ot 786.09 RESPIRATORY ABNORM NEC 03/07/2017 ADITHYA DORADO MD Ot 786.2 COUGH 03/07/2017 Ot 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 03/07/2017 Ot 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, BENIGN, W CHR KD ST 03/07/2017 Ot 585.3 CHRONIC KIDNEY DISEASE, STAGE III (MODER 03/07/2017 Ot 588.0 RENAL OSTEODYSTROPHY 03/07/2017 Ot 791.0 PROTEINURIA 03/07/2017 SILVIANO SOSA MD Ot 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 03/07/2017 SILVIANO SOSA MD Ot 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, BENIGN, W CHR KD ST 03/07/2017 SILVIANO SOSA MD Ot 585.3 CHRONIC KIDNEY DISEASE, STAGE III ( MODER 03/07/2017 SILVIANO SOSA MD Ot 588.0 RENAL OSTEODYSTROPHY 03/07/2017 SILVIANO SOSA MD Ot 791.0 PROTEINURIA 03/07/2017 SILVIANO SOSA MD Ot 585.4 CHRONIC KIDNEY DISEASE, STAGE IV ( SEVERE 03/07/2017 UNDERWOOD DPM, MATILDE P Ot 735.4 OTHER HAMMER TOE 03/07/2017 UNDERWOOD DPM, MATILDE P Ot V72.84 EXAM PRE-OPERATIVE NOS 03/07/2017 UNDERWOOD DPM, MATILDE P Ot V74.8 SCREEN-BACTERIAL DIS NEC 03/07/2017 SILVIANO SOSA MD Ot 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 03/07/2017 SILVIANO SOSA MD Ot 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, BENIGN, W [facility] KD ST 03/07/2017 SILVIANO SOSA MD Ot 585.3 CHRONIC KIDNEY DISEASE, STAGE III ( MODER 03/07/2017 SILVIANO OSSA MD Ot 588.0 RENAL OSTEODYSTROPHY 03/07/2017 SILVIANO SOSA MD Ot 791.0 PROTEINURIA 03/07/2017 ADITHYA DORADO MD Ot 786.2 COUGH 03/07/2017 SILVIANO SOSA MD Ot 268.9 VITAMIN D DEFICIENCY NOS 03/07/2017 SILVIANO SOSA MD A Ot 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 03/07/2017 SILVIANO SOSA MD Ot 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, BENIGN, W [facility] KD ST 03/07/2017 SILVIANO SOSA MD Ot 585.3 CHRONIC KIDNEY DISEASE, STAGE III ( MODER 03/07/2017 SILVIANO SOSA MD Ot 588.0 RENAL OSTEODYSTROPHY 03/07/2017 SILVIANO SOSA MD Ot 791.0 PROTEINURIA 03/07/2017 ADITHYA DORADO MD Ot 715.38 LOC OSTEOAR NOS-SITE NEC 03/07/2017 ADITHYA DORADO MD Ot 719.45 JOINT PAIN-PELVIS 03/07/2017 ADITHYA DORADO MD Ot 722.52 LUMB/LUMBOSAC DISC DEGEN 03/07/2017 ADITHYA DORADO MD Ot 781.2 ABNORMALITY OF GAIT 03/07/2017 SILVIANO SOSA MD Ot 268.9 VITAMIN D DEFICIENCY NOS 03/07/2017 SILVIANO SOSA MD Ot 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 03/07/2017 SILVIANO SOSA MD Ot 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62 LAB EXAM ORDERED PART OF A ROUTINE GE 03/07/2017 SILVIANO SOSA MD Ot 268.9 VITAMIN D DEFICIENCY NOS 03/07/2017 SILVIANO SOSA MD Ot 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 03/07/2017 SILVIANO SOSA MD Ot 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, BENIGN, W CHR KD ST 03/07/2017 SILVIANO SOSA MD Ot 585.3 CHRONIC KIDNEY DISEASE, STAGE III ( MODER 03/07/2017 SILVIANO SOSA MD Ot 588.0 RENAL OSTEODYSTROPHY 03/07/2017 SILVIANO SOSA MD Ot 791.0 PROTEINURIA 03/07/2017 Ot 429.3 CARDIOMEGALY 03/07/2017 Ot 786.52 PAINFUL RESPIRATION 03/07/2017 Ot E000.8 OTHER EXTERNAL CAUSE STATUS 03/07/2017 Ot E888.9 FALL NOS 03/07/2017 NEW, KEITH VidalStephen HEAD TENNIS COACH-C Ot 268.9 VITAMIN D DEFICIENCY NOS 03/07/2017 NEW, KEITH VidalStephen HEAD TENNIS COACH-C Ot 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 03/07/2017 NEW, KEITH YoungStephen HEAD TENNIS COACH-C Ot 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, BENIGN, W CHR KD ST 03/07/2017 NEW, KEITH YoungStephen HEAD TENNIS COACH-C Ot 585.3 CHRONIC KIDNEY DISEASE, STAGE III (MODER 03/07/2017 NEW, KEITH So HEAD TENNIS COACH-C Ot 588.0 RENAL OSTEODYSTROPHY 03/07/2017 NEW, KEITH So HEAD TENNIS COACH-C Ot 790.21 IMPAIRED FASTING GLUCOSE 03/07/2017 NEW, KEITH So HEAD TENNIS COACH-C Ot 791.0 PROTEINURIA 03/07/2017 NEW, KEITH YoungStephen HEAD TENNIS COACH-C Ot 268.9 VITAMIN D DEFICIENCY NOS 03/07/2017 NEW, KEITH YoungStephen HEAD TENNIS COACH-C Ot 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 HEAD TENNIS COACH-C Ot 791.0 PROTEINURIA 03/07/2017 NEW, KEITH GStephen HEAD TENNIS COACH-C Ot D63.1 ANEMIA IN CHRONIC KIDNEY DISEASE 03/07/2017 NEW, KEITH GStephen HEAD TENNIS COACH-C Ot E55.9 VITAMIN D DEFICIENCY, UNSPECIFIED 03/07/2017 NEW, KEITH G. HEAD TENNIS COACH-C Ot E78.5 HYPERLIPIDEMIA, UNSPECIFIED 03/07/2017 NEW, KEITH GStephen HEAD TENNIS COACH-C Ot I12.9 HYPERTENSIVE CHRONIC KIDNEY DISEASE W ST 03/07/2017 NEW, KEITH G. HEAD TENNIS COACH-C Ot N18.3 CHRONIC KIDNEY DISEASE, STAGE 3 (MODERAT 03/07/2017 KEITH BEAUCHAMP HEAD TENNIS COACH-C Ot N25.0 RENAL OSTEODYSTROPHY 03/07/2017 KEITH BEAUCHAMP NP-C Ot R73.01 IMPAIRED FASTING GLUCOSE 03/07/2017 KEITH BEAUCHAMP HEAD TENNIS COACH-C Ot R80.9 PROTEINURIA, UNSPECIFIED 03/07/2017 Ot I10 ESSENTIAL (PRIMARY) HYPERTENSION 03/07/2017 Ot I25.10 ATHSCL HEART DISEASE OF [place] CORONARY 03/07/2017 Ot R00.2 PALPITATIONS 03/07/2017 Ot R06.02 SHORTNESS OF BREATH 03/07/2017 Ot R94.31 ABNORMAL ELECTROCARDIOGRAM [ECG] [EKG] 03/07/2017 MIHAELA STOVER FACC, BETO FACP CCDS Ot I10 ESSENTIAL (PRIMARY) HYPERTENSION 03/07/2017 MIHAELA STOVER FACC, ALI FACP CCDS Ot I25.10 ATHSCL HEART DISEASE OF [place] CORONARY 03/07/2017 MIHAELA STOVER FACC, BETO FACP CCDS Ot R00.2 PALPITATIONS 03/07/2017 MIHAELA STOVER FACC, ALI FACP CCDS Ot R06.02 SHORTNESS OF BREATH 03/07/2017 MIHAELA STOVER FACC, ALI FACP CCDS Ot R94.31 ABNORMAL ELECTROCARDIOGRAM [ECG ] [EKG] 03/07/2017 MIHAELA STOVER FACC, ALI FACP CCDS Ot I10 ESSENTIAL (PRIMARY) HYPERTENSION 03/07/2017 MIHAELA STOVER FACC, ALI FACP CCDS Ot I25.10 ATHSCL HEART DISEASE OF [place] CORONARY 03/07/2017 MIHAELA STOVER FACC, ALI FACP CCDS Ot R00.2 PALPITATIONS 03/07/2017 MIHAELA STOVER FACC, ALI FACP CCDS Ot R06.02 SHORTNESS OF BREATH 03/07/2017 MIHAELA STOVER FACC, ALI FACP CCDS Ot R94.31 ABNORMAL ELECTROCARDIOGRAM [ECG ] [EKG] 03/07/2017 MIHAELA STOVER FACC, ALI FACP CCDS Ot I10 ESSENTIAL (PRIMARY) HYPERTENSION 03/07/2017 MIHAELA STOVER FACC, ALI FACP CCDS Ot I25.10 ATHSCL HEART DISEASE OF [place] CORONARY 03/07/2017 MIHAELA STOVER FACC, ALI FACP CCDS Ot I73.9 PERIPHERAL VASCULAR DISEASE, UNSPECIFIED 03/10/2017 ADITHYA DORADO MD Ot K80.20 CALCULUS OF GALLBLADDER W/O CHOLECYSTITI 03/10/2017 ADITHYA DORADO MD Ot R19.7 DIARRHEA, UNSPECIFIED 03/13/2017 ADITHYA DORADO MD Ot K80.20 CALCULUS OF GALLBLADDER W/O CHOLECYSTITI 03/13/2017 ADITHYA DORADO MD Ot R19.7 DIARRHEA, UNSPECIFIED 03/30/2017 ADITHYA DORADO MD Ot K80.20 CALCULUS OF GALLBLADDER W/O CHOLECYSTITI 03/30/2017 ADITHYA DORADO MD Ot R19.7 DIARRHEA, UNSPECIFIED 03/31/2017 ADITHYA DORADO MD Ot R19.7 DIARRHEA, UNSPECIFIED 04/05/2017 ADITHYA DORADO MD Ot R19.7 DIARRHEA, UNSPECIFIED Procedures Code Description Performed By Performed On 53.72 OTH OPEN REPAIR OF DIAPHRAGMATIC HERNI 08/12/2011 53.62 LAPAROSCOPIC INCISIONAL HERNIA REPAIR W 11/08/2012 54.51 LAPAROSCOP LYSIS-PERITONEAL ADHES 11/08/2012 Results Test Result Range C DIFFICILE AG + TOXIN A/B. - 03/30/17 18:39 RESULTS NEGATIVE FOR ANTIGEN AND TOXIN A/B NRG Encounters ACCT No. Visit Date/Time Discharge Status Pt. Type Provider Facility Loc./Unit Complaint [id number] 03/31/2016 23:11:00 2015 00:53:00 DIS Emergency TAHIRA FISCHER DO Via [facility] ER FELL,RT SIDE RIB PAIN,RT HIP PAIN [id number] 08/06/2015 10:31:00 2014 23:59:59 CLS Outpatient KEITH BEAUCHAMP HEAD TENNIS COACH-C [facility] LAB HLD,ANEMIA,KIDNEY STAGE III,VIT D DEF [id number] 07/07/2015 21:50:00 2014 17:00:00 DIS Inpatient ADITHYA DORADO MD [facility] SURGICAL UTI;ALTERED MENTAL STATUS;HYPOXIA ; [id number] 06/01/2015 00:11:00 2014 23:59:59 CLS Preadmit KEITH BEAUCHAMP NP-C [facility] LAB CKD, ANEMIA,HTN [id number] 03/02/2015 11:28:00 2014 00:01:00 DIS Outpatient KEITH BEAUCHAMP HEAD TENNIS COACH-C [facility] LAB CKD, ANEMIA,HTN [id number] 04/09/2015 10:23:00 2014 23:59:59 CLS Outpatient KEITH BEAUCHAMP HEAD [employer]ENNIS COACH-C [facility] LAB CKD STAGE III,VIT D DEF,PROTEINURIA, ANEMIA CKD,WENDY [id number] 11/11/2014 11:28:00 2014 23:59:59 CLS Outpatient SILVIANO SOSA MD [facility] LAB CKD STAGE III,VIT D DEF, [id number],ANEMIA,RENAL [id number] 09/09/2014 09:30:00 2013 23:59:59 CLS Outpatient ADITHYA DORADO MD [facility] LAB HTN,HLP,ROUTINE EXAM,HATCHERY ATTENDANT MED USE [id number] 05/20/2014 12:00:00 2013 23:59:59 CLS Outpatient ADITHYA DORADO MD [facility] LAB HTN,HYPERLIPIDEMIA,[facility] MED USE [id number] 04/28/2014 12:00:00 2013 23:59:59 CLS Outpatient SILVIANO SOSA MD [facility] LAB CKD STAGE III,VIT D DEF,HTN , [id number] 03/26/2014 14:41:00 2013 23:59:59 CLS Outpatient ADITHYA DORADO MD [facility] RAD R HIP PAIN,SCIATTA,GATT INSTABILITY, BACK PAIN [id number] 03/19/2014 16:43:00 2013 17:11:00 DIS Emergency ZAK LIMA APRN [facility] ER R LEG HURT [id number] 12/23/2013 10:47:00 2013 23:59:59 CLS Outpatient SILVIANO SOSA MD [facility] LAB CKD III,VIT D FDFICIENCY, PROTEINURIA,ANEMIA,HTN [id number] 10/30/2013 12:11:00 2013 23:59:59 CLS Outpatient ADITHYA DORADO MD [facility] RAD COUGH [id number] 08/30/2013 07:31:00 2012 13:30:00 DIS Outpatient MATILDE UNDERWOOD DPM [facility] RAMONA LEFT [id number] 08/20/2013 12:04:00 2012 23:59:59 CLS Outpatient MATILDE UNDERWOOD DPM [facility] PREOP LEFT BRENDENERTOE [id number] 08/19/2013 13:03:00 2012 23:59:59 CLS Outpatient SILVIANO SOSA MD [facility] LAB PROTEINURIA,ANEMIA CKD, HYPERTENSION, [id number] 07/15/2013 11:58:00 2012 23:59:59 CLS Outpatient SILVIANO SOSA MD [facility] LAB SKD IV [id number] 06/07/2013 12:17:00 2012 23:59:59 CLS Outpatient SILVIANO SOSA MD [facility] LAB PROTEINURIA,ANEMIA,HTN,CKD, RENAL OSTEODYSTROPHY [id number] 03/03/2013 09:42:00 2012 00:01:00 DIS Outpatient SILVIANO SOSA MD [facility] LAB BENIGN ESSENTIAL KIDNEY DISEASE,PROTEIMURIA [id number] 05/06/2013 13:09:00 2012 23:59:59 CLS Outpatient ADITHYA DORADO MD [facility] RAD COUGH [id number] 04/11/2013 12:04:00 2012 23:59:59 CLS Outpatient ADITHYA DORADO MD [facility] RAD HIP PAIN,PELVIS PAIN POST FALL [id number] 03/15/2013 11:14:00 2012 23:59:59 CLS Outpatient ADITHYA DORADO MD [facility] LAB HYPERLIPIDEMIA,HTN [id number] 04/09/2017 20:47:00 Document Registration [id number] 03/30/2017 20:22:00 ACT Outpatient ADITHYA DORADO MD [facility] CVS R/O C-DIFF, DIAHREA [id number] 03/07/2017 07:19:00 ACT Outpatient ADITHYA DORADO MD [facility] RAD DIARRHEA,ABD DISCOMFORT [id number] 11/22/2016 15:43:00 ACT Outpatient MIHAELA STOVER FACC, ALI FACP CCDS [facility] RAD HTN,CAD,LT LEG CLAUDICATION [id number] 01/26/2016 10:47:00 ACT Outpatient MIHAELA STOVER FACGabe, ALI FACP CCDS [facility] CARD SOA,CAD, ABNORMAL EKG [id number] 01/22/2016 13:14:00 ACT Outpatient MIHAELA STOVER FACGabe, ALI FACP CCDS [facility] CARD SOA,CAD,ABNORMAL EKG [id number] 01/14/2016 10:13:00 Document Registration [id number] 01/02/2015 16:28:00 Document Registration [id number] 05/31/2013 00:00:00 Document Registration [id number] 12/08/2012 11:00:00 Document Registration [id number] 12/05/2012 10:17:00 Document Registration [id number] 11/08/2012 08:59:00 Document Registration [id number] 11/05/2012 09:00:00 Document Registration [id number] 10/31/2012 11:32:00 Document Registration [id number] 10/11/2012 00:00:00 Document Registration [id number] 09/12/2012 00:00:00 Document Registration [id number] 07/20/2012 11:13:00 Document Registration [id number] 07/12/2012 10:32:00 Document Registration [id number] 06/14/2012 12:53:00 Document Registration [id number] 05/30/2012 15:39:00 Document Registration [id number] 03/29/2012 09:48:00 Document Registration [id number] 03/20/2012 15:48:00 Document Registration [id number] 12/29/2011 08:53:00 Document Registration [id number] 12/13/2011 09:58:00 Document Registration [id number] 12/07/2011 11:23:00 Document Registration [id number] 09/02/2011 11:10:00 Document Registration [id number] 08/20/2011 14:14:00 Document Registration [id number] 08/12/2011 05:49:00 Document Registration [id number] 08/08/2011 08:47:00 Document Registration [id number] 08/04/2011 13:17:00 Document Registration [id number] 07/11/2011 11:19:00 Document Registration [id number] 07/11/2011 11:16:00 Document Registration [id number] 06/28/2011 12:52:00 Document Registration [id number] 06/21/2011 07:02:00 Document Registration [id number] 06/16/2011 11:13:00 Document Registration
--- OUTSIDE RECORDS SUMMARY | 2017-04-10 19:38 | XMS REPORT | Continuity of Care Document ---
Author Author [facility] Organization [facility] Address Unknown Phone Unavailable Allergies Active Description Code Type Severity Reaction Onset Reported/Identified Relationship to Patient Clinical Status Yes codeine [id number] Drug Allergy Unknown N/A 12/18/2008 Yes morphine [id number] Drug Allergy Unknown N/A 12/18/2008 Yes sulfamethoxazole [id number] Drug Allergy Unknown N/A 12/18/2008 Yes trimethoprim [id number] Drug Allergy Unknown N/A 12/18/2008 Yes prednisone [id number] Drug Allergy Unknown N/A 03/19/2014 Yes propoxyphene napsylate [id number] Drug Allergy Unknown N/A 03/19/2014 Medications Problems Date Dx Coded Attending Type Code Diagnosis Diagnosed By 06/21/2011 Ot 272.4 HYPERLIPIDEMIA NEC/NOS 06/21/2011 Ot 388.01 PRESBYACUSIS 06/21/2011 Ot 403.90 HYPTNSV CHR KID DIS, UNSPEC, W CHR KD ST 06/21/2011 Ot 414.01 CORONARY ATHEROSCLEROSIS OF [place] CORON 06/21/2011 Ot 433.10 CAROTID ARTERY OCCLUSION [...] ST 08/20/2011 Ot 414.01 CORONARY ATHEROSCLEROSIS OF [place] CORON 08/20/2011 Ot 486 PNEUMONIA, ORGANISM NOS 08/20/2011 Ot 553.3 DIAPHRAGMATIC HERNIA 08/20/2011 Ot 568.0 PERITONEAL LUAYKUEUW-RCAR-GP/INF 08/20/2011 Ot 585.9 CHRONIC KIDNEY DISEASE, UNSPECIFIED 08/20/2011 Ot V64.41 LAPAROSCOPIC SURGICAL PROC CONVERTED TO 08/25/2011 Ot 112.0 THRUSH 08/25/2011 Ot 272.4 HYPERLIPIDEMIA NEC/NOS 08/25/2011 Ot 275.2 DIS MAGNESIUM METABOLISM 08/25/2011 Ot 276.8 HYPOPOTASSEMIA 08/25/2011 Ot 285.9 ANEMIA NOS 08/25/2011 Ot 311 DEPRESSIVE DISORDER NEC 08/25/2011 Ot 403.90 HYPTNSV CHR KID DIS, UNSPEC, W CHR KD ST 08/25/2011 Ot 414.01 CORONARY ATHEROSCLEROSIS OF [place] CORON 08/25/2011 Ot 486 PNEUMONIA, ORGANISM NOS [...] ST 11/12/2012 Ot 414.01 CORONARY ATHEROSCLEROSIS OF [place] CORON 11/12/2012 Ot 496 CHR AIRWAY OBSTRUCT NEC 11/12/2012 Ot 553.21 INCISIONAL HERNIA 11/12/2012 Ot 568.0 PERITONEAL CRGVTIKZP-RBLF-DQ/INF 11/12/2012 Ot 585.9 CHRONIC KIDNEY DISEASE, UNSPECIFIED [...] 01/27/2015 Ot E888.9 04/08/2015 NEW, KEITH YoungStephen DIRECTOR MARKET RESEARCH-C Ot 268.9 04/08/2015 NEW, KEITH VidalStephen DIRECTOR MARKET RESEARCH-C Ot 285.21 04/08/2015 NEW, KEITH VidalStephen DIRECTOR MARKET RESEARCH-C Ot 403.10 04/08/2015 NEW, KEITH VidalStephen DIRECTOR MARKET RESEARCH-C Ot 585.3 04/08/2015 NEW, KEITH VidalStephen DIRECTOR MARKET RESEARCH-C Ot 588.0 04/08/2015 NEW, KEITH VidalStephen DIRECTOR MARKET RESEARCH-C Ot 790.21 04/08/2015 NEW, KEITH VidalStephen DIRECTOR MARKET RESEARCH-C Ot 791.0 05/06/2015 NEW, KEITH YoungStephen DIRECTOR MARKET RESEARCH-C Ot 268.9 05/06/2015 NEW, KEITH YoungStephen DIRECTOR MARKET RESEARCH-C Ot 285.21 05/06/2015 NEW, KEITH VidalStephen DIRECTOR MARKET RESEARCH-C Ot 403.10 05/06/2015 NEW, KEITH YoungStephen DIRECTOR MARKET RESEARCH-C Ot 585.3 05/06/2015 NEW, KEITH YoungStephen DIRECTOR MARKET RESEARCH-C Ot 588.0 05/06/2015 NEW, KEITH Vidal. DIRECTOR MARKET RESEARCH-C Ot 790.21 05/06/2015 NEW, KEITH Vidal. DIRECTOR MARKET RESEARCH-C Ot 791.0 05/31/2015 NEW, KEITH Vidal. DIRECTOR MARKET RESEARCH-C Ot 268.9 VITAMIN D DEFICIENCY NOS 05/31/2015 NEW, KEITH Vidal. 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 DIRECTOR MARKET RESEARCH-C Ot 585.3 CHRONIC KIDNEY DISEASE, STAGE III (MODER 05/31/2015 NEW, KEITH Vidal. DIRECTOR MARKET RESEARCH-C Ot 588.0 RENAL OSTEODYSTROPHY 05/31/2015 NEW, KEITH G. DIRECTOR MARKET RESEARCH-C Ot 790.21 IMPAIRED FASTING GLUCOSE 05/31/2015 NEW, KEITH VidalStephen DIRECTOR MARKET RESEARCH-C Ot 791.0 PROTEINURIA 07/09/2015 ESTRADA STOVER, ADITHYA A Ot 276.51 DEHYDRATION 07/09/2015 ESTRADA STOVER, ADITHYA A Ot 298.9 PSYCHOSIS NOS 07/09/2015 ESTRADA STOVER, ADITHYA A Ot 584.9 ACUTE RENAL FAILURE, UNSPECIFIED 07/09/2015 ESTRADA STOVER, ADITHYA A Ot 585.9 CHRONIC KIDNEY DISEASE, UNSPECIFIED 07/09/2015 ESTRADA STOVER, ADITHYA A Ot 599.0 URIN TRACT INFECTION NOS 07/09/2015 ESTRADA STOVER, ADITHYA A Ot 787.91 DIARRHEA 07/09/2015 ESTRADA STOVER, ADITHYA A Ot V04.81 ND FOR PROPHYLACTIC VACCIN AND INOCULATI 09/01/2015 NEW, KEITH Young. DIRECTOR MARKET RESEARCH-C Ot D63.1 09/01/2015 NEW, KEITH G. DIRECTOR MARKET RESEARCH-C Ot E55.9 09/01/2015 NEW, KEITH G. DIRECTOR MARKET RESEARCH-C Ot E78.5 09/01/2015 NEW, KEITH G. DIRECTOR MARKET RESEARCH-C Ot I12.9 09/01/2015 NEW, KEITH G. DIRECTOR MARKET RESEARCH-C Ot N18.3 09/01/2015 NEW, KEITH G. DIRECTOR MARKET RESEARCH-C Ot N25.0 09/01/2015 NEW, KEITH G. DIRECTOR MARKET RESEARCH-C Ot R73.01 09/01/2015 NEW, KEITH G. DIRECTOR MARKET RESEARCH-C Ot R80.9 01/25/2016 MIHAELA ALVARADOC, ALI FACP CCDS Ot I10 01/25/2016 MIHAELA STOVER FACC, ALI FACP CCDS Ot I25.10 01/25/2016 MIHAELA STOVER FACC, ALI FACP CCDS Ot R00.2 01/25/2016 MIHAELA STOVER FACC, ALI FACP CCDS Ot R06.02 01/25/2016 MIHAELA STOVER FACC, ALI FACP CCDS Ot R94.31 02/03/2016 Ot I10 ESSENTIAL (PRIMARY) HYPERTENSION 02/03/2016 Ot I25.10 ATHSCL HEART DISEASE OF [place] CORONARY 02/03/2016 Ot R00.2 PALPITATIONS 02/03/2016 Ot R06.02 SHORTNESS OF BREATH 02/03/2016 Ot R94.31 ABNORMAL ELECTROCARDIOGRAM [ECG] [EKG] 02/11/2016 MIHAELA STOVER FACC, ALI FACP CCDS Ot I10 ESSENTIAL (PRIMARY) HYPERTENSION 02/11/2016 [facility] STOVER [facility], ALI FACP CCDS Ot I25.10 ATHSCL HEART DISEASE OF [place] CORONARY 02/11/2016 MIHAELA STOVER [facility], ALI FACP CCDS Ot R00.2 PALPITATIONS 02/11/2016 MIHAELA STOVER FACC, ALI FACP CCDS Ot R06.02 SHORTNESS OF BREATH 02/11/2016 MIHAELA STOVER FACC, ALI FACP CCDS Ot R94.31 ABNORMAL ELECTROCARDIOGRAM [ECG ] [EKG] 02/17/2016 MIHAELA ALVARADOC, ALI FACP CCDS Ot I10 ESSENTIAL (PRIMARY) HYPERTENSION 02/17/2016 MIHAELA ALVARADO, ALI FACP CCDS Ot I25.10 ATHSCL HEART DISEASE OF [place] CORONARY 02/17/2016 MIHAELA STOVER [facility], ALI FACP CCDS Ot R00.2 PALPITATIONS 02/17/2016 [...] FISCHER DO Ot Y92.[address] [facility] PRIVATE 04/01/2016 TAHIRA FISCHER DO Ot Y99.8 OTHER EXTERNAL CAUSE STATUS 04/01/2016 Ot 401.9 HYPERTENSION NOS 04/01/2016 Ot 553.20 VENTRAL HERNIA NOS 04/01/2016 Ot V72.63 PRE-PROCEDURAL LABORATORY EXAMINATION 04/01/2016 Ot V72.81 WZKH-CPY-SWROFRUTK CARDIOVASCULAR 04/01/2016 Ot V74.8 SCREEN-BACTERIAL DIS NEC [...] MD Ot 272.4 HYPERLIPIDEMIA NEC/NOS 04/01/2016 ADITHYA ODRADO MD Ot 401.9 HYPERTENSION NOS 04/01/2016 ADITHYA [...] E888.9 FALL NOS 04/01/2016 NEW, KEITH So DIRECTOR MARKET RESEARCH-C Ot 268.9 VITAMIN D DEFICIENCY NOS 04/01/2016 NEWKEITH DIRECTOR MARKET RESEARCH-C Ot 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, BENIGN, W CHR KD ST 04/01/2016 KEITH BEAUCHAMP DIRECTOR MARKET RESEARCH-C Ot 585.3 CHRONIC KIDNEY DISEASE, STAGE III (MODER 04/01/2016 NEW KEITH GStephen DIRECTOR MARKET RESEARCH-C Ot 588.0 RENAL OSTEODYSTROPHY 04/01/2016 NEWKEITH GStephen DIRECTOR MARKET RESEARCH-C Ot 790.21 IMPAIRED FASTING GLUCOSE 04/01/2016 NEW KEITH GStephen DIRECTOR MARKET RESEARCH-C Ot 791.0 PROTEINURIA 04/01/2016 KEITH BEAUCHAMP GStephen DIRECTOR MARKET RESEARCH-C Ot D63.1 ANEMIA IN CHRONIC KIDNEY DISEASE 04/01/2016 KEITH BEAUCHAMP DIRECTOR MARKET RESEARCH-C Ot E55.9 VITAMIN D DEFICIENCY, UNSPECIFIED 04/01/2016 KEITH BEAUCHAMP GStephen DIRECTOR MARKET RESEARCH-C Ot E78.5 HYPERLIPIDEMIA, UNSPECIFIED 04/01/2016 QUYNH KEITH So DIRECTOR MARKET RESEARCH-C Ot I12.9 HYPERTENSIVE CHRONIC KIDNEY DISEASE W ST 04/01/2016 QUYNH KEITH So DIRECTOR MARKET RESEARCH-C Ot N18.3 CHRONIC KIDNEY DISEASE, STAGE 3 (MODERAT 04/01/2016 QUYNH KEITH So DIRECTOR MARKET RESEARCH-C Ot N25.0 RENAL OSTEODYSTROPHY 04/01/2016 QUYNH KEITH So DIRECTOR MARKET RESEARCH-C Ot R73.01 IMPAIRED FASTING GLUCOSE 04/01/2016 QUYNH KEITH So DIRECTOR MARKET RESEARCH-C Ot R80.9 PROTEINURIA, UNSPECIFIED 04/01/2016 Ot I10 ESSENTIAL (PRIMARY) HYPERTENSION 04/01/2016 Ot I25.10 ATHSCL HEART DISEASE OF [place] CORONARY 04/01/2016 Ot R00.2 PALPITATIONS 04/01/2016 Ot R06.02 SHORTNESS OF BREATH 04/01/2016 Ot R94.31 ABNORMAL ELECTROCARDIOGRAM [ECG] [EKG] 04/01/2016 MIHAELA STOVER FACC, ALI FACP CCDS Ot I10 ESSENTIAL (PRIMARY) HYPERTENSION 04/01/2016 MIHAELA STOVER FACC, ALI FACP CCDS Ot I25.10 ATHSCL HEART DISEASE OF [place] CORONARY 04/01/2016 MIHAELA STOVER FACC, BETO FACP CCDS Ot R00.2 PALPITATIONS 04/01/2016 MIHAELA STOVER FACC, ALI FACP CCDS Ot R06.02 SHORTNESS OF BREATH 04/01/2016 MIHAELA STOVER FACC, ALI FACP CCDS Ot R94.31 ABNORMAL ELECTROCARDIOGRAM [ECG ] [EKG] 04/01/2016 MIHAELA STOVER FACC, ALI FACP CCDS Ot I10 ESSENTIAL (PRIMARY) HYPERTENSION 04/01/2016 MIHAELA STOVER FACC, ALI FACP CCDS Ot I25.10 ATHSCL HEART DISEASE OF [place] CORONARY 04/01/2016 MIHAELA STOVER FACC, BETO FACP [...] FISCHER DO Ot Y92.[address] [facility] PR[facility] 04/01/2016 TAHIRA FISCHER DO [...] V72.63 PRE-PROCEDURAL LABORATORY EXAMINATION 11/22/2016 Ot V72.81 LURX-[id number]-[id number] CARDIOVASCULAR 11/22/2016 Ot V74.8 SCREEN-BACTERIAL DIS NEC [...] 11/22/2016 SILVIANO SOSA MD Ot 403.10 HYPTNSV [facility] KID DIS, BENIGN, W CHR KD ST [...] 791.0 PROTEINURIA 11/22/2016 ADITHYA DORADO MD Ot 715.38 LOC OSTEOAR [...] E888.9 FALL NOS 11/22/2016 NEW, KEITH So DIRECTOR MARKET RESEARCH-C Ot 268.9 VITAMIN D DEFICIENCY NOS 11/22/2016 NEWKEITH DIRECTOR MARKET RESEARCH-C Ot 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 11/22/2016 KEITH BEAUCHAMP DIRECTOR MARKET RESEARCH-C Ot 403.10 HYPTNSV [facility] KID DIS, BENIGN, W CHR KD ST 11/22/2016 KEITH BEAUCHAMP DIRECTOR MARKET RESEARCH-C Ot 585.3 CHRONIC KIDNEY DISEASE, STAGE III (MODER 11/22/2016 NEW, KEITH So DIRECTOR MARKET RESEARCH-C Ot 588.0 RENAL OSTEODYSTROPHY 11/22/2016 NEWKEITH DIRECTOR MARKET RESEARCH-C Ot 790.21 IMPAIRED FASTING GLUCOSE 11/22/2016 KEITH BEAUCHAMP DIRECTOR MARKET RESEARCH-C Ot 791.0 PROTEINURIA 11/22/2016 KEITH BEAUCHAMP DIRECTOR MARKET RESEARCH-C Ot 268.9 VITAMIN D DEFICIENCY NOS 11/22/2016 KEITH BEAUCHAMP DIRECTOR MARKET RESEARCH-C Ot 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 DIRECTOR MARKET RESEARCH-C Ot 588.0 RENAL OSTEODYSTROPHY 11/22/2016 NEWKEITH GStephen DIRECTOR MARKET RESEARCH-C Ot 790.21 IMPAIRED FASTING GLUCOSE 11/22/2016 NEW KEITH G. DIRECTOR MARKET RESEARCH-C Ot 791.0 PROTEINURIA 11/22/2016 NEW, KEITH So DIRECTOR MARKET RESEARCH-C Ot D63.1 ANEMIA IN CHRONIC KIDNEY DISEASE 11/22/2016 QUYNH KEITH So DIRECTOR MARKET RESEARCH-C Ot E55.9 VITAMIN D DEFICIENCY, UNSPECIFIED 11/22/2016 QUYNH KEITH So DIRECTOR MARKET RESEARCH-C Ot E78.5 HYPERLIPIDEMIA, UNSPECIFIED 11/22/2016 NEW KEITH So DIRECTOR MARKET RESEARCH-C Ot I12.9 HYPERTENSIVE CHRONIC KIDNEY DISEASE W ST 11/22/2016 NEW KEITH So DIRECTOR MARKET RESEARCH-C Ot N18.3 CHRONIC KIDNEY DISEASE, STAGE 3 (MODERAT 11/22/2016 NEW KEITH So DIRECTOR MARKET RESEARCH-C Ot N25.0 RENAL OSTEODYSTROPHY 11/22/2016 QUYNH KEITH So DIRECTOR MARKET RESEARCH-C Ot R73.01 IMPAIRED FASTING GLUCOSE 11/22/2016 NEW KEITH So DIRECTOR MARKET RESEARCH-C Ot R80.9 PROTEINURIA, UNSPECIFIED 11/22/2016 Ot I10 ESSENTIAL (PRIMARY) HYPERTENSION 11/22/2016 Ot I25.10 ATHSCL HEART DISEASE OF [place] CORONARY 11/22/2016 Ot R00.2 PALPITATIONS 11/22/2016 Ot R06.02 SHORTNESS OF BREATH 11/22/2016 Ot R94.31 ABNORMAL ELECTROCARDIOGRAM [ECG] [EKG] 11/22/2016 MIHAELA STOVER FACC, BETO FACP CCDS Ot I10 ESSENTIAL (PRIMARY) HYPERTENSION 11/22/2016 MIHAELA STOVER FACC, BETO FACP CCDS Ot I25.10 ATHSCL HEART DISEASE OF [place] CORONARY 11/22/2016 MIHAELA STOVER FACC, BETO FACP CCDS Ot R00.2 PALPITATIONS 11/22/2016 MIHAELA STOVER FACC, ALI FACP CCDS Ot R06.02 SHORTNESS OF BREATH 11/22/2016 MIHAELA STOVER FACC, BETO FACP CCDS Ot R94.31 ABNORMAL ELECTROCARDIOGRAM [ECG ] [EKG] 11/22/2016 MIHAELA STOVER FACC, BETO FACP CCDS Ot I10 ESSENTIAL (PRIMARY) HYPERTENSION 11/22/2016 MIHAELA STOVER FACC, ALI FACP CCDS Ot I25.10 ATHSCL HEART DISEASE OF [place] CORONARY 11/22/2016 MIHAELA STOVER FACC, BETO FACP CCDS Ot R00.2 PALPITATIONS 11/22/2016 MIHAELA STOVER FACC, BETO FACP CCDS Ot R06.02 SHORTNESS OF BREATH 11/22/2016 MIHAELA STOVER FACC, ALI FACP CCDS Ot R94.31 ABNORMAL ELECTROCARDIOGRAM [ECG ] [EKG] 11/23/2016 MIHAELA STOVER FACC, ALI FACP CCDS Ot I10 ESSENTIAL (PRIMARY) HYPERTENSION 11/23/2016 MIHAELA STOVER FACC, ALI FACP CCDS Ot I25.10 ATHSCL HEART DISEASE OF [place] CORONARY 11/23/2016 MIHAELA STOVER FACC, ALI FACP CCDS Ot I73.9 PERIPHERAL VASCULAR DISEASE, UNSPECIFIED 12/16/2016 MIHAELA STOVER FACC, ALI FACP CCDS Ot I10 ESSENTIAL (PRIMARY) HYPERTENSION 12/16/2016 MIHAELA STOVER FACC, BETO FACP CCDS Ot I25.10 ATHSCL HEART DISEASE OF [place] CORONARY 12/16/2016 MIHAELA STOVER FACC, ALI FACP [...] V72.63 PRE-PROCEDURAL LABORATORY EXAMINATION 03/07/2017 Ot V72.81 [id number]-LMG-KQFSWFIYR CARDIOVASCULAR 03/07/2017 Ot V74.8 SCREEN-BACTERIAL DIS NEC [...] 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, BENIGN, W [facility] KD ST 03/07/2017 SILVIANO SOSA MD Ot [...] 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, BENIGN, W [facility] KD ST 03/07/2017 SILVIANO SOSA MD Ot [...] E888.9 FALL NOS 03/07/2017 NEW, KEITH VidalStephen DIRECTOR MARKET RESEARCH-C Ot 268.9 VITAMIN D DEFICIENCY NOS 03/07/2017 NEW, KEITH VidalStephen DIRECTOR MARKET RESEARCH-C Ot 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 03/07/2017 NEW, KEITH YoungStephen DIRECTOR MARKET RESEARCH-C Ot 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, BENIGN, W CHR KD ST 03/07/2017 NEW, KEITH YoungStephen DIRECTOR MARKET RESEARCH-C Ot 585.3 CHRONIC KIDNEY DISEASE, STAGE III (MODER 03/07/2017 NEW, KEITH So DIRECTOR MARKET RESEARCH-C Ot 588.0 RENAL OSTEODYSTROPHY 03/07/2017 NEW, KEITH So DIRECTOR MARKET RESEARCH-C Ot 790.21 IMPAIRED FASTING GLUCOSE 03/07/2017 NEW, KEITH So DIRECTOR MARKET RESEARCH-C Ot 791.0 PROTEINURIA 03/07/2017 NEW, KEITH YoungStephen DIRECTOR MARKET RESEARCH-C Ot 268.9 VITAMIN D DEFICIENCY NOS 03/07/2017 NEW, KEITH YoungStephen DIRECTOR MARKET RESEARCH-C Ot 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 DIRECTOR MARKET RESEARCH-C Ot 791.0 PROTEINURIA 03/07/2017 NEW, KEITH GStephen DIRECTOR MARKET RESEARCH-C Ot D63.1 ANEMIA IN CHRONIC KIDNEY DISEASE 03/07/2017 NEW, KEITH GStephen DIRECTOR MARKET RESEARCH-C Ot E55.9 VITAMIN D DEFICIENCY, UNSPECIFIED 03/07/2017 NEW, KEITH G. DIRECTOR MARKET RESEARCH-C Ot E78.5 HYPERLIPIDEMIA, UNSPECIFIED 03/07/2017 NEW, KEITH GStephen DIRECTOR MARKET RESEARCH-C Ot I12.9 HYPERTENSIVE CHRONIC KIDNEY DISEASE W ST 03/07/2017 NEW, KEITH G. DIRECTOR MARKET RESEARCH-C Ot N18.3 CHRONIC KIDNEY DISEASE, STAGE 3 (MODERAT 03/07/2017 KEITH BEAUCHAMP DIRECTOR MARKET RESEARCH-C Ot N25.0 RENAL OSTEODYSTROPHY 03/07/2017 KEITH BEAUCHAMP NP-C Ot R73.01 IMPAIRED FASTING GLUCOSE 03/07/2017 KEITH BEAUCHAMP DIRECTOR MARKET RESEARCH-C Ot R80.9 PROTEINURIA, UNSPECIFIED 03/07/2017 Ot I10 ESSENTIAL (PRIMARY) HYPERTENSION 03/07/2017 Ot I25.10 ATHSCL HEART DISEASE OF [place] CORONARY 03/07/2017 Ot R00.2 PALPITATIONS 03/07/2017 Ot R06.02 SHORTNESS OF BREATH 03/07/2017 Ot R94.31 ABNORMAL ELECTROCARDIOGRAM [ECG] [EKG] 03/07/2017 MIHAELA STOVER FACC, BETO FACP CCDS Ot I10 ESSENTIAL (PRIMARY) HYPERTENSION 03/07/2017 MIHAELA STOVER FACC, ALI FACP CCDS Ot I25.10 ATHSCL HEART DISEASE OF [place] CORONARY 03/07/2017 MIHAELA STOVER FACC, BETO FACP CCDS Ot R00.2 PALPITATIONS 03/07/2017 MIHAELA STOVER FACC, ALI FACP CCDS Ot R06.02 SHORTNESS OF BREATH 03/07/2017 MIHAELA STOVER FACC, ALI FACP CCDS Ot R94.31 ABNORMAL ELECTROCARDIOGRAM [ECG ] [EKG] 03/07/2017 MIHAELA STOVER FACC, ALI FACP CCDS Ot I10 ESSENTIAL (PRIMARY) HYPERTENSION 03/07/2017 MIHAELA STOVER FACC, ALI FACP CCDS Ot I25.10 ATHSCL HEART DISEASE OF [place] CORONARY 03/07/2017 MIHAELA STOVER FACC, ALI FACP CCDS Ot R00.2 PALPITATIONS 03/07/2017 MIHAELA STOVER FACC, ALI FACP CCDS Ot R06.02 SHORTNESS OF BREATH 03/07/2017 MIHAELA STOVER FACC, ALI FACP CCDS Ot R94.31 ABNORMAL ELECTROCARDIOGRAM [ECG ] [EKG] 03/07/2017 MIHAELA STOVER FACC, ALI FACP CCDS Ot I10 ESSENTIAL (PRIMARY) HYPERTENSION 03/07/2017 MIHAELA STOVER FACC, ALI FACP CCDS Ot I25.10 ATHSCL HEART DISEASE OF [place] CORONARY 03/07/2017 MIHAELA STOVER FACC, ALI FACP [...] Status Pt. Type Provider Facility Loc./Unit Complaint [id number] 03/31/2016 23:11:00 2015 00:53:00 DIS Emergency TAHIRA FISCHER DO [facility] ER FELL,RT SIDE RIB PAIN,RT HIP PAIN [id number] 08/06/2015 10:31:00 2014 23:59:59 CLS Outpatient KEITH BEAUCHAMP DIRECTOR MARKET RESEARCH-C [facility] LAB HLD,ANEMIA,KIDNEY STAGE III,VIT D DEF [id number] 07/07/2015 21:50:00 2014 17:00:00 DIS Inpatient ADITHYA DORADO MD [facility] SURGICAL UTI;ALTERED MENTAL STATUS;HYPOXIA ; [id number] 06/01/2015 00:11:00 2014 23:59:59 CLS Preadmit KEITH BEAUCHAMP NP-C [facility] LAB CKD, ANEMIA,HTN [id number] 03/02/2015 11:28:00 2014 00:01:00 DIS Outpatient KEITH BEAUCHAMP DIRECTOR MARKET RESEARCH-C [facility] LAB CKD, ANEMIA,HTN [id number] 04/09/2015 10:23:00 2014 23:59:59 CLS Outpatient KEITH BEAUCHAMP DIRECTOR MARKET RESEARCH-C [facility] LAB CKD STAGE III,VIT D DEF,PROTEINURIA, ANEMIA CKD,WENDY [id number] 11/11/2014 11:28:00 2014 23:59:59 CLS Outpatient SILVIANO SOSA MD [facility] LAB CKD STAGE III,VIT D DEF, [id number],ANEMIA,RENAL [id number] 09/09/2014 09:30:00 2013 23:59:59 CLS Outpatient ADITHYA DORADO MD [facility] LAB HTN,HLP,ROUTINE EXAM,DAM TENDER ASSISTANT MED USE [id number] 05/20/2014 12:00:00 2013 23:59:59 CLS Outpatient ADITHYA DORADO MD [facility] LAB HTN,HYPERLIPIDEMIA,SHELTER MED USE [id number] 04/28/2014 12:00:00 2013 23:59:59 CLS Outpatient SILVIANO SOSA MD [facility] LAB CKD STAGE III,VIT D DEF,HTN , [id number] 03/26/2014 14:41:00 2013 23:59:59 CLS Outpatient ADITHYA DORADO MD [facility] RAD R HIP PAIN,SCIATTA,GATT INSTABILITY, BACK PAIN [id number] 03/19/2014 16:43:00 2013 17:11:00 DIS Emergency ZAK LIMA APRN [facility] ER R LEG HURT [id number] 12/23/2013 10:47:00 2013 23:59:59 CLS Outpatient SILVIANO SOSA MD [facility] LAB CKD III,VIT D FDFICIENCY, PROTEINURIA,ANEMIA,HTN [id number] 10/30/2013 12:11:00 2013 23:59:59 CLS Outpatient ADITHYA DORADO MD [facility] RAD COUGH [id number] 08/30/2013 07:31:00 2012 13:30:00 DIS Outpatient MATILDE UNDERWOOD DPM [facility] RAMONA LEFT [id number] 08/20/2013 12:04:00 2012 23:59:59 CLS Outpatient MATILDE UNDERWOOD DPM [facility] PREOP LEFT BRENDENERTOE [id number] 08/19/2013 13:03:00 2012 23:59:59 CLS Outpatient SILVIANO SOSA MD [facility] LAB PROTEINURIA,ANEMIA CKD, HYPERTENSION, [id number] 07/15/2013 11:58:00 2012 23:59:59 CLS Outpatient SILVIANO SOSA MD [facility] LAB SKD IV [id number] 06/07/2013 12:17:00 2012 23:59:59 CLS Outpatient SILVIANO SOSA MD [facility] LAB PROTEINURIA,ANEMIA,HTN,CKD, RENAL OSTEODYSTROPHY [id number] 03/03/2013 09:42:00 2012 00:01:00 DIS Outpatient SILVIANO SOSA MD [facility] LAB BENIGN ESSENTIAL KIDNEY DISEASE,PROTEIMURIA [id number] 05/06/2013 13:09:00 2012 23:59:59 CLS Outpatient ADITHYA DORADO MD [facility] RAD COUGH [id number] 04/11/2013 12:04:00 2012 23:59:59 CLS Outpatient ADITHYA DORADO MD [facility] RAD HIP PAIN,PELVIS PAIN POST FALL [id number] 03/15/2013 11:14:00 2012 23:59:59 CLS Outpatient ADITHYA DORADO MD [facility] LAB HYPERLIPIDEMIA,HTN [id number] 04/09/2017 20:47:00 Document Registration [id number] 03/30/2017 20:22:00 ACT Outpatient ADITHYA DORADO MD [facility] CVS R/O C-DIFF, DIAHREA [id number] 03/07/2017 07:19:00 ACT Outpatient ADITHYA DORADO MD [facility] RAD DIARRHEA,ABD DISCOMFORT [id number] 11/22/2016 15:43:00 ACT Outpatient MIHAELA STOVER FACC, ALI FACP CCDS [facility] RAD HTN,CAD,LT LEG CLAUDICATION [id number] 01/26/2016 10:47:00 ACT Outpatient MIHAELA STOVER FACGabe, ALI FACP CCDS [facility] CARD SOA,CAD, ABNORMAL EKG [id number] 01/22/2016 13:14:00 ACT Outpatient MIHAELA STOVER FACGabe, ALI FACP CCDS [facility] CARD SOA,CAD,ABNORMAL EKG [id number] 01/14/2016 10:13:00 Document Registration [id number] 01/02/2015 16:28:00 Document Registration [id number] 05/31/2013 00:00:00 Document Registration [id number] 12/08/2012 11:00:00 Document Registration [id number] 12/05/2012 10:17:00 Document Registration [id number] 11/08/2012 08:59:00 Document Registration [id number] 11/05/2012 09:00:00 Document Registration [id number] 10/31/2012 11:32:00 Document Registration [id number] 10/11/2012 00:00:00 Document Registration [id number] 09/12/2012 00:00:00 Document Registration [id number] 07/20/2012 11:13:00 Document Registration [id number] 07/12/2012 10:32:00 Document Registration [id number] 06/14/2012 12:53:00 Document Registration [id number] 05/30/2012 15:39:00 Document Registration [id number] 03/29/2012 09:48:00 Document Registration [id number] 03/20/2012 15:48:00 Document Registration [id number] 12/29/2011 08:53:00 Document Registration [id number] 12/13/2011 09:58:00 Document Registration [id number] 12/07/2011 11:23:00 Document Registration [id number] 09/02/2011 11:10:00 Document Registration [id number] 08/20/2011 14:14:00 Document Registration [id number] 08/12/2011 05:49:00 Document Registration [id number] 08/08/2011 08:47:00 Document Registration [id number] 08/04/2011 13:17:00 Document Registration [id number] 07/11/2011 11:19:00 Document Registration [id number] 07/11/2011 11:16:00 Document Registration [id number] 06/28/2011 12:52:00 Document Registration [id number] 06/21/2011 07:02:00 Document Registration [id number] 06/16/2011 11:13:00 Document Registration
[2017-04-10] MEDS: PANTOPRAZOLE 40 MG/10 ML (PROTONIX) VIAL IV SCH (20:22)
[2017-04-11] VITALS (29 sets, daily range): BP systolic 149–190; BP diastolic 62–93
[2017-04-11] MEDS: NS IV 1000 ML 1,000 ML IV SCH (00:37)
[2017-04-11 04:27] LABS: BASOPHILS # (AUTO) 0.1 10^3/uL (0.0-0.1); BASOPHILS % (AUTO) 1 % (0-10); EOSINOPHILS # (AUTO) 0.1 10^3/uL (0.0-0.3); EOSINOPHILS % (AUTO) 1 % (0-10); LYMPHOCYTES # (AUTO) 1.3 X 10^3 (1.0-4.0); LYMPHOCYTES % (AUTO) 10 % (12-44); MEAN CORPUSCULAR HEMOGLOBIN 30 PG (25-34); MEAN CORPUSCULAR HGB CONC 32 G/DL (32-36); MEAN CORPUSCULAR VOLUME 96 FL (80-99); MEAN PLATELET VOLUME 11.1 FL (7.4-10.4); MONOCYTES # (AUTO) 0.9 X 10^3 (0.0-1.0); MONOCYTES % (AUTO) 6 % (0-12); NEUTROPHILS # (AUTO) 11.2 X 10^3 (1.8-7.8); NEUTROPHILS % (AUTO) 82 % (42-75); PLATELET COUNT 164 10^3/uL (130-400); RED BLOOD COUNT 2.41 10^6/uL (4.35-5.85); RED CELL DISTRIBUTION WIDTH 18.3 % (10.0-14.5); WHITE BLOOD COUNT 13.6 10^3/uL (4.3-11.0)
[2017-04-11 04:55] LABS: CALCIUM 7.9 MG/DL (8.5-10.1); CREATININE SERUM 2.32 MG/DL (0.60-1.30); ICTERUS 0.3 (-100-1.9); MAGNESIUM 1.7 MG/DL (1.8-2.4); PHOSPHORUS 3.6 MG/DL (2.3-4.7)
[2017-04-11] MEDS: MAGNESIUM 1 GM/100 ML IVPB 100 ML IV SCH ×3 (04:57→05:36)
[2017-04-11] MEDS: POTASSIUM CL 10MEQ/50ML IVPB 50 ML IV SCH (04:57)
--- NOTE | 2017-04-11 06:42 | Pulmonary Progress Note ---
Subjective Time Seen by Provider: 06:42 Subjective/Events-last exam Pt does not feel well. She denies SOB and pain. Exam Exam Vital Signs Date Time Temp Pulse Resp B/P (MAP) Pulse Ox O2 Delivery O2 Flow Rate FiO2 04/11/17 06:00 82 22 172/78 100 Nasal Cannula 2.00 04/11/17 05:00 85 21 160/71 100 Nasal Cannula 2.00 04/11/17 04:00 86 18 174/76 100 Nasal Cannula 2.00 04/11/17 03:52 100 Nasal Cannula 2.00 04/11/17 03:51 97.6 Nasal Cannula 2.00 04/11/17 03:00 92 17 167/80 99 Nasal Cannula 2.00 04/11/17 02:00 88 18 164/74 99 Nasal Cannula 2.00 04/11/17 01:00 90 24 169/72 100 Nasal Cannula 2.00 04/11/17 01:00 90 04/11/17 00:18 97.0 Nasal Cannula 2.00 04/11/17 00:00 100 Nasal Cannula 2.00 04/11/17 00:00 88 21 154/62 100 Nasal Cannula 2.00 04/10/17 23:00 86 18 131/102 98 Nasal Cannula 2.00 04/10/17 22:00 86 17 165/67 99 Nasal Cannula 2.00 04/10/17 21:00 92 18 159/65 99 Nasal Cannula 2.00 04/10/17 20:50 97.4 04/10/17 20:00 91 25 157/61 99 Nasal Cannula 2.00 04/10/17 20:00 100 Nasal Cannula 2.00 04/10/17 19:20 97.4 Nasal Cannula 2.00 04/10/17 19:00 87 04/10/17 19:00 87 20 159/60 99 Nasal Cannula 2.00 04/10/17 18:00 92 22 154/62 99 Nasal Cannula 2.00 04/10/17 17:00 88 20 156/61 100 Nasal Cannula 2.00 04/10/17 16:00 97.7 Nasal Cannula 2.00 04/10/17 16:00 87 21 161/70 99 Nasal Cannula 2.00 04/10/17 16:00 100 Nasal Cannula 2.00 04/10/17 15:00 89 18 156/62 100 Nasal Cannula 2.00 04/10/17 14:00 80 20 158/65 99 Nasal Cannula 2.00 04/10/17 13:00 79 18 157/59 99 Nasal Cannula 2.00 04/10/17 13:00 79 04/10/17 12:00 81 21 148/84 100 Nasal Cannula 2.00 04/10/17 12:00 100 Nasal Cannula 2.00 04/10/17 12:00 98.6 Nasal Cannula 2.00 04/10/17 11:00 81 26 163/74 99 Nasal Cannula 3.00 04/10/17 10:00 85 27 158/61 100 Nasal Cannula 3.00 04/10/17 09:00 84 17 115/46 100 Nasal Cannula 3.00 04/10/17 08:03 Nasal Cannula 3.00 04/10/17 08:00 100 Nasal Cannula 2.00 04/10/17 08:00 99.2 Nasal Cannula 2.00 04/10/17 08:00 80 20 139/63 100 Nasal Cannula 3.00 04/10/17 07:00 89 04/10/17 07:00 90 18 156/63 100 Nasal Cannula 3.00 I & O 04/11/17 07:00 Intake Total 2300 ml Output Total 1575 ml Balance 725 ml General Appearance: WD/WN, Mild Distress HEENT: PERRL/EOMI, Other (DRY MUCOSAL SURFACE) Neck: Non Tender Respiratory: Chest Non Tender, No Accessory Muscle Use, No Respiratory Distress Cardiovascular: Regular Rate, Rhythm Capillary Refill: Less Than 3 Seconds Gastrointestinal: non tender, soft, no organomegaly, other (slight tenderness right lower quadrant, hematoma ruq tender size of baseball) Extremity: Non Tender, No Calf Tenderness, No Pedal Edema Neurologic/Psychiatric: Alert, Depressed Affect Skin: Cool, Pallor, Other (HEALING PRESSURE ULCER ON MEDIAL LEFT FOOT/ANKLE AND NEW AREA OF BOGGINESS ON BOTTOM OF HEEL ON LEFT, SACRAL DECUBITUS ULCER - VERY SMALL AREA LESS THAN 2CM) Results Lab Laboratory Tests 04/09/17 17:04 04/10/17 05:10 04/10/17 13:11 04/10/17 21:08 04/11/17 03:48 Assessment/Plan Assessment/Plan Acute upper GIB -S/P EGD and transfusion 2units -octreotide gtt -change protonix to BID 40mg IV -SCDs for DVT ppx -monitor H&H HCAP multifocal -Zosyn -SVNS Debility/dementia -consult PT/OT Metabolic acidosis -monitor -IVF 233 Clinical Quality Measures DVT/VTE Risk/Contraindication: Risk Factor Score Per Nursin RFS Level Per Nursing on Admit: 3=High JACK DEGROOT DO Apr 11, 2017 06:42
[2017-04-11] MEDS ORDERED: NS IV 500 ML 500 ML IV SCH (08:30)
[2017-04-11] MEDS ORDERED: FUROSEMIDE 40 MG/4 ML INJ (LASIX) IVP NR (08:30)
[2017-04-11] MEDS ORDERED: diphenhydrAMINE 50 MG/ML INJ (BENADRYL) IVP PRN (08:30)
--- NOTE | 2017-04-11 08:32 | Progress Note (SOAP) ---
Subjective Date Seen by Provider: Apr 11, 2017 Time Seen by Provider: 08:30 Subjective/Events-last exam pt reports feeling poorly, fatigued, weak, family in room, vocalize concern that pt has yet to be fed. Review of Systems General: Fatigue, Malaise Pulmonary: Dyspnea, No Cough Cardiovascular: No: Chest Pain, Palpitations Gastrointestinal: Abdominal Pain, No: Nausea Genitourinary: Other (gandhi in place) Neurological: Weakness Objective Exam Vital Signs Date Time Temp Pulse Resp B/P (MAP) Pulse Ox O2 Delivery O2 Flow Rate FiO2 04/11/17 08:00 100 Nasal Cannula 2.00 04/11/17 06:00 82 22 172/78 100 Nasal Cannula 2.00 04/11/17 05:00 85 21 160/71 100 Nasal Cannula 2.00 04/11/17 04:00 86 18 174/76 100 Nasal Cannula 2.00 04/11/17 03:52 100 Nasal Cannula 2.00 04/11/17 03:51 97.6 Nasal Cannula 2.00 04/11/17 03:00 92 17 167/80 99 Nasal Cannula 2.00 04/11/17 02:00 88 18 164/74 99 Nasal Cannula 2.00 04/11/17 01:00 90 24 169/72 100 Nasal Cannula 2.00 04/11/17 01:00 90 04/11/17 00:18 97.0 Nasal Cannula 2.00 04/11/17 00:00 100 Nasal Cannula 2.00 04/11/17 00:00 88 21 154/62 100 Nasal Cannula 2.00 04/10/17 23:00 86 18 131/102 98 Nasal Cannula 2.00 04/10/17 22:00 86 17 165/67 99 Nasal Cannula 2.00 04/10/17 21:00 92 18 159/65 99 Nasal Cannula 2.00 04/10/17 20:50 97.4 04/10/17 20:00 91 25 157/61 99 Nasal Cannula 2.00 04/10/17 20:00 100 Nasal Cannula 2.00 04/10/17 19:20 97.4 Nasal Cannula 2.00 04/10/17 19:00 87 04/10/17 19:00 87 20 159/60 99 Nasal Cannula 2.00 04/10/17 18:00 92 22 154/62 99 Nasal Cannula 2.00 04/10/17 17:00 88 20 156/61 100 Nasal Cannula 2.00 04/10/17 16:00 97.7 Nasal Cannula 2.00 04/10/17 16:00 87 21 161/70 99 Nasal Cannula 2.00 04/10/17 16:00 100 Nasal Cannula 2.00 04/10/17 15:00 89 18 156/62 100 Nasal Cannula 2.00 04/10/17 14:00 80 20 158/65 99 Nasal Cannula 2.00 04/10/17 13:00 79 18 157/59 99 Nasal Cannula 2.00 04/10/17 13:00 79 04/10/17 12:00 81 21 148/84 100 Nasal Cannula 2.00 04/10/17 12:00 100 Nasal Cannula 2.00 04/10/17 12:00 98.6 Nasal Cannula 2.00 04/10/17 11:00 81 26 163/74 99 Nasal Cannula 3.00 04/10/17 10:00 85 27 158/61 100 Nasal Cannula 3.00 04/10/17 09:00 84 17 115/46 100 Nasal Cannula 3.00 I & O 04/11/17 07:00 Intake Total 2300 ml Output Total 1575 ml Balance 725 ml Capillary Refill : Less Than 3 Seconds General Appearance: WD/WN, Mild Distress Neck: Supple Respiratory: Chest Non Tender, Crackles, Decreased Breath Sounds Cardiovascular: Regular Rate, Rhythm Gastrointestinal: normal bowel sounds, tenderness (in epigastrium - 13 x 13.5 cm hematoma in right mid/lower abdomen) Neurologic/Psychiatric: Alert, Oriented x3, Other (flat affect) Skin: Pallor Results Lab Laboratory Tests 04/10/17 13:11: Hemoglobin 8.1L, Hematocrit 26L 04/10/17 21:08: Hemoglobin 7.9L, Hematocrit 24L 04/11/17 03:48: Hemoglobin 7.3L, Hematocrit 23L, White Blood Count 13.6H, Red Blood Count 2.41L , Mean Corpuscular Volume 96, Mean Corpuscular Hemoglobin 30, Mean Corpuscular Hemoglobin Concent 32, Red Cell Distribution Width 18.3H, Platelet Count 164, Mean Platelet Volume 11.1H, Neutrophils (%) (Auto) 82H, Lymphocytes (%) (Auto) 10L, Monocytes (%) (Auto) 6, Eosinophils (%) (Auto) 1, Basophils (%) (Auto) 1, Neutrophils # (Auto) 11.2H, Lymphocytes # (Auto) 1.3, Monocytes # (Auto) 0.9, Eosinophils # (Auto) 0.1, Basophils # (Auto) 0.1, Sodium Level 143, Potassium Level 5.0, Chloride Level 119H, Carbon Dioxide Level 15L, Anion Gap 9, Blood Urea Nitrogen 72H, Creatinine 2.32H, Estimat Glomerular Filtration Rate 20, BUN/ Creatinine Ratio 31H, Glucose Level 108H, Calcium Level 7.9L, Phosphorus Level 3.6, Magnesium Level 1.7L Microbiology 04/09/17 Blood Culture - Preliminary, Resulted No growth 04/09/17 Urine Culture - Final, Complete Klebsiella Pneumoniae Assessment/Plan Assessment/Plan Assess & Plan/Chief Complaint ACUTE GASTROINTESTINAL BLEED SEVERE ANEMIA PNEUMONIA HYPERTENSION WEAKNESS DEPRESSION CONSTIPATION ACUTE GASTROINTESTINAL BLEED - DEFER TO DR. DIOP - PT ON PROTONIX, OCTREOTIDE , MONITOR H AND H AND TRANSFUSE AGAIN TODAY. SEVERE ANEMIA - -TRANSFUSE PRN - MONITOR HEMOGLOBIN, WAITING ON ANEMIA ANALYZER - MAY NEED TO CONSIDER ERYTHROPOIETIN PNEUMONIA - PT ON IV ANTIBIOTICS - CONTINUE WITH ZOSYN, GIVE VANCOMYCIN AND MONITOR SERIAL CHEST XRAYS. HYPERTENSION - CHRONIC - CANNOT YET RESTART HOME MEDICATIONS DUE TO NPO STATUS WEAKNESS - WILL START PHYSICAL THERAPY ONCE GI BLEEDING IS STABILIZED. DEPRESSION -RESTART CELEXA ONCE ABLE TO TAKE PO CONSTIPATION - - MONITOR OUTPUT, PT RECENTLY HAD CDIFF, NEED TO START ON PROBIOTIC SOON PT ABLE TO TAKE PO. DVT PROPHYLAXIS - WILL USE SCD'S, BUT WILL NOT GIVE LOVENOX DUE TO HER GI BLEEDING Clinical Quality Measures DVT/VTE Risk/Contraindication: Risk Factor Score Per Nursin RFS Level Per Nursing on Admit: 3=High ADITHYA DORADO MD Apr 11, 2017 08:32
[2017-04-11] MEDS: PANTOPRAZOLE 40 MG/10 ML (PROTONIX) VIAL IV SCH ×2 (08:34→21:15)
[2017-04-11] MEDS: PIPERACILLIN SODIUM/TAZOBACTAM 4.5 GM in NS (IVPB) 100 ML IV SCH ×2 (08:34→21:15)
[2017-04-11] MEDS: fentaNYL INJECTION 100 MCG/2 ML AMP IV PRN ×3 (08:35→17:06)
[2017-04-11] MEDS: OCTREOTIDE INJECTION 500 MCG in NS (IVPB) 99 ML IV SCH (08:58)
[2017-04-11] MEDS ORDERED: RT-ALBUTEROL/IPRATROPIUM 3 ML (DUONEB) VIAL ONE (10:07)
[2017-04-11] MEDS ORDERED: RT-ALBUTEROL/IPRATROPIUM 3 ML (DUONEB) VIAL INH PRN (10:15)
--- NOTE | 2017-04-11 10:31 | Diagnostic Imaging Report ---
EXAMINATION: Portable upright radiograph of the chest. INDICATION: Upper GI bleeding. COMPARISON: 04/09/2017. FINDINGS: There is patchy infiltrate in the lateral mid right lung and mild infiltrates in the lung bases. There are small effusions bilaterally, more on the right side. The effusions appear slightly increased compared to 04/09/2017. No pneumothorax. The mediastinum and akira appear unremarkable. IMPRESSION: Lateral mid right lung infiltrate, presumably related to pneumonia, and bilateral small effusions, more on the right side. Followup in a few weeks to document resolution of the lung consolidation is recommended. Dictated by: Dictated on workstation # [id number]
[2017-04-11] MEDS: RT-ALBUTEROL/IPRATROPIUM 3 ML (DUONEB) VIAL INH SCH ×3 (10:32→19:26)
--- NOTE | 2017-04-11 11:45 | Progress Note ---
Subjective Time Seen by Provider: 09:30 Subjective/Events-last exam Patient resting in bed easily aroused. Even respirations. Pale. Patient was just cleaned up by RN due to BM that had some bright red blood. RN unsure if it was related to Robles catheter. Hematoma and bruising noted to the right lower quadrant. Objective Exam Vital Signs Date Time Temp Pulse Resp B/P (MAP) Pulse Ox O2 Delivery O2 Flow Rate FiO2 04/11/17 10:34 100 Nasal Cannula 2.00 04/11/17 10:06 100 Nasal Cannula 3.00 04/11/17 09:55 100 04/11/17 09:00 86 20 168/71 100 Nasal Cannula 2.00 04/11/17 08:00 97.8 04/11/17 08:00 100 Nasal Cannula 2.00 04/11/17 08:00 90 16 181/82 100 Nasal Cannula 2.00 04/11/17 07:00 91 23 174/81 100 Nasal Cannula 2.00 04/11/17 07:00 89 04/11/17 06:00 82 22 172/78 100 Nasal Cannula 2.00 04/11/17 05:00 85 21 160/71 100 Nasal Cannula 2.00 04/11/17 04:00 86 18 174/76 100 Nasal Cannula 2.00 04/11/17 03:52 100 Nasal Cannula 2.00 04/11/17 03:51 97.6 Nasal Cannula 2.00 04/11/17 03:00 92 17 167/80 99 Nasal Cannula 2.00 04/11/17 02:00 88 18 164/74 99 Nasal Cannula 2.00 04/11/17 01:00 90 24 169/72 100 Nasal Cannula 2.00 04/11/17 01:00 90 04/11/17 00:18 97.0 Nasal Cannula 2.00 04/11/17 00:00 100 Nasal Cannula 2.00 04/11/17 00:00 88 21 154/62 100 Nasal Cannula 2.00 04/10/17 23:00 86 18 131/102 98 Nasal Cannula 2.00 04/10/17 22:00 86 17 165/67 99 Nasal Cannula 2.00 04/10/17 21:00 92 18 159/65 99 Nasal Cannula 2.00 04/10/17 20:50 97.4 04/10/17 20:00 91 25 157/61 99 Nasal Cannula 2.00 04/10/17 20:00 100 Nasal Cannula 2.00 04/10/17 19:20 97.4 Nasal Cannula 2.00 04/10/17 19:00 87 04/10/17 19:00 87 20 159/60 99 Nasal Cannula 2.00 04/10/17 18:00 92 22 154/62 99 Nasal Cannula 2.00 04/10/17 17:00 88 20 156/61 100 Nasal Cannula 2.00 04/10/17 16:00 97.7 Nasal Cannula 2.00 04/10/17 16:00 87 21 161/70 99 Nasal Cannula 2.00 04/10/17 16:00 100 Nasal Cannula 2.00 04/10/17 15:00 89 18 156/62 100 Nasal Cannula 2.00 04/10/17 14:00 80 20 158/65 99 Nasal Cannula 2.00 04/10/17 13:00 79 18 157/59 99 Nasal Cannula 2.00 04/10/17 13:00 79 04/10/17 12:00 81 21 148/84 100 Nasal Cannula 2.00 04/10/17 12:00 100 Nasal Cannula 2.00 04/10/17 12:00 98.6 Nasal Cannula 2.00 I & O 04/11/17 07:00 Intake Total 2300 ml Output Total 1575 ml Balance 725 ml Capillary Refill : Less Than 3 Seconds General Appearance: Chronically ill, Mild Distress HEENT: PERRL/EOMI, Other (DRY MUCOSAL SURFACE) Neck: Non Tender Respiratory: Chest Non Tender, No Accessory Muscle Use, No Respiratory Distress Cardiovascular: Regular Rate, Rhythm Gastrointestinal: non tender, no organomegaly, other (slight tenderness right lower quadrant, hematoma ruq tender size of baseball) Extremity: Non Tender, No Calf Tenderness, No Pedal Edema Neurologic/Psychiatric: Alert, Depressed Affect Skin: Cool, Pallor, Other (HEALING PRESSURE ULCER ON MEDIAL LEFT FOOT/ANKLE AND NEW AREA OF BOGGINESS ON BOTTOM OF HEEL ON LEFT, SACRAL DECUBITUS ULCER - VERY SMALL AREA LESS THAN 2CM) Results Lab Laboratory Tests Test 04/09/17 17:04 04/09/17 22:43 04/10/17 05:10 04/10/17 13:11 Range/Units White Blood Count 13.3 H 4.3-11.0 10^3/uL Red Blood Count 2.27 L 4.35-5.85 10^6/uL Hemoglobin 6.9 *L 9.7 #L 8.1 L 11.5-16.0 G/DL Hematocrit 23 L 29 L 26 L 35-52 % Mean Corpuscular Volume 100 H 80-99 FL Mean Corpuscular Hemoglobin 30 25-34 PG Mean Corpuscular Hemoglobin Concent 30 L 32-36 G/DL Red Cell Distribution Width 17.6 H 10.0-14.5 % Platelet Count 288 130-400 10^3/uL Mean Platelet Volume 10.9 H 7.4-10.4 FL Neutrophils (%) (Auto) 79 H 42-75 % Lymphocytes (%) (Auto) 15 12-44 % Monocytes (%) (Auto) 5 0-12 % Eosinophils (%) (Auto) 0 0-10 % Basophils (%) (Auto) 1 0-10 % Neutrophils # (Auto) 10.5 H 1.8-7.8 X 10^3 Lymphocytes # (Auto) 2.0 1.0-4.0 X 10^3 Monocytes # (Auto) 0.7 0.0-1.0 X 10^3 Eosinophils # (Auto) 0.1 0.0-0.3 10^3/uL Basophils # (Auto) 0.1 0.0-0.1 10^3/uL Sodium Level 137 139 135-145 MMOL/L Potassium Level 6.7 *H 6.2 H 3.6-5.0 MMOL/L Chloride Level 114 H 113 H 98-107 MMOL/L Carbon Dioxide Level 14 L 15 L 21-32 MMOL/L Anion Gap 9 11 5-14 MMOL/L Blood Urea Nitrogen 59 H 68 H 7-18 MG/DL Creatinine 2.28 H 2.36 H 0.60-1.30 MG/DL Estimat Glomerular Filtration Rate 20 19 BUN/Creatinine Ratio 26 H 29 H 0-20 Glucose Level 169 H 145 H 70-105 MG/DL Calcium Level 8.2 L 8.3 L 8.5-10.1 MG/DL Total Bilirubin 0.4 0.9 0.1-1.0 MG/DL Aspartate Amino Transf (AST/SGOT) 37 H 28 5-34 U/L Alanine Aminotransferase (ALT/SGPT) 13 12 0-55 U/L Alkaline Phosphatase 49 48 40-136 U/L Total Protein 6.2 L 6.5 6.4-8.2 GM/DL Albumin 2.6 L 2.8 L 3.2-4.5 GM/DL Lipase 75 8-78 U/L Urine Color YELLOW Urine Clarity SLIGHTLY CLOUDY Urine pH 5 5-9 Urine Specific [place] 1.015 L 1.016-1.022 Urine Protein 1+ H NEGATIVE Urine Glucose (UA) NEGATIVE NEGATIVE Urine Ketones NEGATIVE NEGATIVE Urine Nitrite NEGATIVE NEGATIVE Urine Bilirubin NEGATIVE NEGATIVE Urine Urobilinogen NORMAL NORMAL MG/DL Urine Leukocyte Esterase 3+ H NEGATIVE Urine RBC (Auto) NEGATIVE NEGATIVE Urine RBC NONE /HPF Urine WBC 10-25 H /HPF Urine Crystals NONE /LPF Urine Bacteria LARGE H /HPF Urine Casts NONE /LPF Urine Mucus NEGATIVE /LPF Urine Culture Indicated YES Test 04/10/17 21:08 04/11/17 03:48 Range/Units Hemoglobin 7.9 L 7.3 L 11.5-16.0 G/DL Hematocrit 24 L 23 L 35-52 % White Blood Count 13.6 H 4.3-11.0 10^3/uL Red Blood Count 2.41 L 4.35-5.85 10^6/uL Mean Corpuscular Volume 96 80-99 FL Mean Corpuscular Hemoglobin 30 25-34 PG Mean Corpuscular Hemoglobin Concent 32 32-36 G/DL Red Cell Distribution Width 18.3 H 10.0-14.5 % Platelet Count 164 130-400 10^3/uL Mean Platelet Volume 11.1 H 7.4-10.4 FL Neutrophils (%) (Auto) 82 H 42-75 % Lymphocytes (%) (Auto) 10 L 12-44 % Monocytes (%) (Auto) 6 0-12 % Eosinophils (%) (Auto) 1 0-10 % Basophils (%) (Auto) 1 0-10 % Neutrophils # (Auto) 11.2 H 1.8-7.8 X 10^3 Lymphocytes # (Auto) 1.3 1.0-4.0 X 10^3 Monocytes # (Auto) 0.9 0.0-1.0 X 10^3 Eosinophils # (Auto) 0.1 0.0-0.3 10^3/uL Basophils # (Auto) 0.1 0.0-0.1 10^3/uL Sodium Level 143 135-145 MMOL/L Potassium Level 5.0 3.6-5.0 MMOL/L Chloride Level 119 H 98-107 MMOL/L Carbon Dioxide Level 15 L 21-32 MMOL/L Anion Gap 9 5-14 MMOL/L Blood Urea Nitrogen 72 H 7-18 MG/DL Creatinine 2.32 H 0.60-1.30 MG/DL Estimat Glomerular Filtration Rate 20 BUN/Creatinine Ratio 31 H 0-20 Glucose Level 108 H 70-105 MG/DL Calcium Level 7.9 L 8.5-10.1 MG/DL Phosphorus Level 3.6 2.3-4.7 MG/DL Magnesium Level 1.7 L 1.8-2.4 MG/DL Laboratory Tests 04/10/17 13:11: Hemoglobin 8.1L, Hematocrit 26L 04/10/17 21:08: Hemoglobin 7.9L, Hematocrit 24L 04/11/17 03:48: Hemoglobin 7.3L, Hematocrit 23L, White Blood Count 13.6H, Red Blood Count 2.41L , Mean Corpuscular Volume 96, Mean Corpuscular Hemoglobin 30, Mean Corpuscular Hemoglobin Concent 32, Red Cell Distribution Width 18.3H, Platelet Count 164, Mean Platelet Volume 11.1H, Neutrophils (%) (Auto) 82H, Lymphocytes (%) (Auto) 10L, Monocytes (%) (Auto) 6, Eosinophils (%) (Auto) 1, Basophils (%) (Auto) 1, Neutrophils # (Auto) 11.2H, Lymphocytes # (Auto) 1.3, Monocytes # (Auto) 0.9, Eosinophils # (Auto) 0.1, Basophils # (Auto) 0.1, Sodium Level 143, Potassium Level 5.0, Chloride Level 119H, Carbon Dioxide Level 15L, Anion Gap 9, Blood Urea Nitrogen 72H, Creatinine 2.32H, Estimat Glomerular Filtration Rate 20, BUN/ Creatinine Ratio 31H, Glucose Level 108H, Calcium Level 7.9L, Phosphorus Level 3.6, Magnesium Level 1.7L Microbiology 04/09/17 Blood Culture - Preliminary, Resulted No growth 04/09/17 Urine Culture - Final, Complete Klebsiella Pneumoniae Assessment/Plan Assessment/Plan Assessment/Plan gi bleed-upper with hematemesis. H&H 7.3 and 23. acute diverticulitis hematoma abdominal ruq from recent cholecystectomy anemia secondary to gi bleed iv abx for diverticulitis protonix 40 mg IV BID IV fluids NPO Possible EGD this Afternoon. We will continue to monitor patient. 2 units PRBC to be transfused. Mian- Patient with drop in hgb. Getting transfused prbc. Patient with no pain. Had bloody bowel movement. No new complaints. Denies n/v fever sweats chills shortness of breath or chest pain. general no acute distress, pale heart reg lungs nonlabored abdomen hematoma right side. no significant tenderness ext nontender alert assessment as above continues to have drop in hgb from gi bleed discussed repeat EGD consent signed plan EGD Clinical Quality Measures DVT/VTE Risk/Contraindication: Risk Factor Score Per Nursin RFS Level Per Nursing on Admit: 3=High HANNAH OLMSTEAD APRN Apr 11, 2017 11:45 DAARSH DIOP DO Apr 11, 2017 15:48
--- NOTE | 2017-04-11 12:24 | Physical Therapy Evaluation ---
PT Evaluation-General Medical Diagnosis Admission Date Apr 09, 2017 at 18:00 Medical Diagnosis: GI bleed; post EGD Onset Date: Apr 09, 2017 Therapy Diagnosis Therapy Diagnosis: weakness; abn gait Height/Weight Height (Feet): 5 Height (Inches): 6.00 Weight (Pounds): 138 Weight (Ounces): 14.4 Precautions Precautions/Isolations: Fall Prevention, Standard Precautions Referral Physician: Grace Reason for Referral: Evaluation/Treatment Medical History Pertinent Medical History: Arthritis, HTN, Renal Insufficiency Additional Medical History anemia, c diff Current History Admitted to hospital with weakness and bloody emesis; difficulty with BM. Post EGD for source of bleed. Has also been receiving PRBC. Reviewed History: Yes Social History Home: Single Level Current Living Status: Other Family (daughter) Entry Into Home: Stairs With Railing (2) Prior/Core FIM Prior Level of Function Functional [place] Measure 0=Not Assessed/NA 4=Minimal Assistance 1=Total Assistance 5=Supervision or Setup 2=Maximal Assistance 6=Modified [place] 3=Moderate Assistance 7=Complete [place] Bed Mobility: 7 Transfers (B,C,W/C) (FIM): 7 Gait: 6 (occas use of cane for long distance mobility) Family reports she was able to ambulate in the community as well as care for her personal needs. PT Evaluation-Current Subjective Agrees to sit EOB . Pain Numeric Pain Scale: 0-No Pain Location: No Pain Reported Objective Patient Orientation: Person, Confused (slightly), Place, Time, Situation Problem Solving: Fair Attachments: Oxygen, Robles Catheter, IV ROM/Strength ROM Lower Extremities WFL Strenght Lower Extremities Gross LE strength B is 4/5 Integumentary/Posture Integumentary Refer to nursing notes. Bowel Incontinence: No Bladder Incontinence: Robles Cath Posture normal and symmetrical Neuromuscular (Tone, Coordination, Reflexes) functional Sensory Vision: Wears Glasses Hearing: Functional Hand Dominance: Right Sensation Right Lower Extremit: Intact Sensation Left Lower Extremity: Intact Transfers Functional [place] Measure 0=Not Assessed/NA 4=Minimal Assistance 1=Total Assistance 5=Supervision or Setup 2=Maximal Assistance 6=Modified [place] 3=Moderate Assistance 7=Complete [place] Transfers (B, C, W/C) (FIM): 3 Supine to/from Sit: 3 Sit to/from Stand: 3 Mod assist to transfer to sit EOB and mod assist to stand EOB. Pt able to side step to the jose enrique with FWW with CGA. Pt in bed post treatment with needs met and nursing preparing to hang blood. Balance Sitting Static: Good Sitting Dynamic: Fair Standing Static: Fair Standing Dynamic: Fair Treatment Up to EOB and standing. Assessment/Needs Presents with recent GI bleed with hospital stay that elicits decreased functional mobility . Pt has decreased strength and ability to transfer. She will benefit from PT to work on bed mobility, transfers an gait to allow her to return home as before. EVAL of moderate intensity. Rehab Potential: Good PT Denture Processor Goals Denture Processor Goals PT Denture Processor Goals Time Frame: Apr 18, 2017 Transfers (B,C,W/C) (FIM): 6 Gait (FIM): 6 Gait distance (FIM): 3=150 ft Gait Assistive Device: FWW PT Plan Problem List Problem List: Activity Tolerance, Functional Strength, Safety, Balance, Gait, Transfer, Bed Mobility Treatment/Plan Treatment Plan: Continue Plan of Care Treatment Plan: Bed Mobility, Education, Functional Activity Izzy, Functional Strength, Gait, Safety, Therapeutic Exercise, Transfers Treatment Duration: Apr 18, 2017 Visits Per Week: 6 Pt/Family Agrees w/Plan: Yes Safety Risks/Education Patient Education: Transfer Techniques Teaching Recipient: Patient Teaching Methods: Demonstration, Discussion Response to Teaching: Reinforcement Needed Time/GCodes Time In: 1100 Time Out: 1125 Total Billed Treatment Time: 25 Total Billed Treatment visit EVM 15 FA 10 GENARO CORDON PT Apr 11, 2017 12:24
--- NOTE | 2017-04-11 13:53 | Occupational Therapy Eval ---
OT Evaluation-General/PLF Medical Diagnosis Admission Date Apr 09, 2017 at 18:00 Medical Diagnosis: GI bleed; post EGD Onset Date: Apr 09, 2017 Therapy Diagnosis Therapy Diagnosis: Weakness, Decreased ADL skills Height/Weight Height (Feet): 5 Height (Inches): 6.00 Weight (Pounds): 138 Weight (Ounces): 14.4 Precautions Precautions/Isolations: Fall Prevention, Standard Precautions Safety Interventions: Reorient-PRN Weight Bear Status Weight Bearing Restriction: Weight Bearing/Tolerated Referral Physician: Grace Referral Reason: Activity Tolerance, Self Care, Evaluation/Treatment, Strengthening/ROM Medical History Pertinent Medical History: Arthritis, HTN, Renal Insufficiency Additional Medical History C-diff, Left hammer toe repair, ventral hernia repair, CAD Current History Pt. was in hospital approximately a month ago. Discharged to NH for strengthening. Came back with nausea and bloody emesis. Reviewed History: Yes Social History Home: Single Level Current Living Status: Other Family (Granddaughter) Entry Into Home: Stairs With Railing (2) Steps Into Home: 5 Social history is provided for home, not NH. Pt. states that she will not be going back to the longterm. ADL-Prior Level of Function ADL PLOF Comments Pt. states that she was independent with all basic skills prior to transfer to NH. DME/Equipment: Bath Chair, Tub/Shower DME/Equipment Comments Pt. and granddaughter confirm that she has a walker and cane that she was not using at home, but then began to use while in the NH this last month. Drive Self: Yes OT Current Status Subjective Pt. lethargic. UTE. Receiving blood in neck. Hemoglobin low again. Appearance Pt. in bed. Has blood transfusion going and granddaughter states that she will be getting more, and then she will getting a GI scope. Mental Status/Objective Patient Orientation: Person Attachments: Robles Catheter, IV, Oxygen Current Hand Dominance: Right Upper Extremity ROM Pt. is able to demonstrate full AROM at bed level in bilateral UE. Upper Extremity Strength Pt. demonstrates approximately 3/5 proximally, and 3+/5 distally in UE strength. ADL-Treatment Functional [place] Measure 0=Not Assessed/NA 4=Minimal Assistance 1=Total Assistance 5=Supervision or Setup 2=Maximal Assistance 6=Modified [place] 3=Moderate Assistance 7=Complete IndependenceIRFPAI Quality Coding Scale 6 Independent with activity with or without an assistive device 5 Patient requires set up or clean up by helper. Patient completes activity by themselves 4 Supervision or touching assist (CGA). [place] provide cues , steadying assist 3 The helper provides less than half the effort to complete the activity 2 The helper provides more than half the effort to complete the activity 1 Dependent. The helper does all the effort to complete an activity 7 Patient refused to complete or attempt activity 9 The patient did not perform the activity before the current illness or injury 88 Not attempted due to Medical conditions or safety concerns Due to receiving blood, low hemoglobin, and awaiting scope, pt. did not feel like transferring supine-sit. However, did demonstrate ability to roll side to side in bed and position self on side. Pillows applied behind back for pressure relief from coccyx. All needs met in bed. Pt. is unable to eat right now due to impending scope. Unable to assess feeding. Granddaughter states that maybe pt. could go back home, and receive home health. States that that is what her goal is. Education OT Patient Education: Correct positioning, Modified ADL techniques, Progress toward Goal/Update tx plan, Purpose of tx/functional activities, Reviewed precautions, Rehab process, Transfer techniques Teaching Recipient: Patient Teaching Methods: Demonstration, Discussion Response to Teaching: Verbalize Understanding, Return Demonstration OT Short Term Goals Short Term Goals Time Frame: Apr 18, 2017 Eating(FIM): 4 Grooming(FIM): 4 Bathing(FIM): 3 Upper Body Dressing(FIM): 4 Lower Body Dressing(FIM): 3 Toileting(FIM): 4 Transfers (B,C,W/C) (FIM): 4 Toilet/Commode Transfer(FIM): 4 Additional Short Term Goals: 1-Demonstrate ADL Tasks, 2-Verbalize Understanding , 3-ImproveStrength/Izzy 1=Demonstrate adherence to instructed precautions during ADL tasks. 2=Patient will verbalize/demonstrate understanding of assistive devices/ modifications for ADL. 3=Patient will improve strength/tolerance for activity to enable patient to perform ADL's. OT Mcc Goals Process Steward Goals Time Frame: May 02, 2017 Eating (FIM): 6 Grooming(FIM): 5 Bathing(FIM): 4 Upper Body Dressing(FIM): 5 Lower Body Dressing(FIM): 5 Toileting(FIM): 5 Transfers (B,C,W/C) (FIM): 6 Toilet/Commode Transfer(FIM): 6 Shower Transfer(FIM): 5 Additional Goals: 1-Demonstrate ADL Tasks, 2-Verbalize Understanding, 3- ImproveStrength/Izzy 1=Demonstrate adherence to instructed precautions during ADL tasks. 2=Patient will verbalize/demonstrate understanding of assistive devices/ modifications for ADL. 3=Patient will improve strength/tolerance for activity to enable patient to perform ADL's. OT Education/Plan Problem List/Assessment Assessment: Decreased Activ Tolerance, Decreased UE Strength, Dependent Transfers, Impaired Bed Mobility, Impaired Funct Balance, Impaired I ADL's, Impaired Self-Care Skills, Restricted Funct UE ROM Discharge Recommendations Plan/Recommendations: Continue POC Therapy D/C Recommendations: Bath Aide, Home w/ Family Support, Occupational Therapy Home Care Equpiment Recommendations-D/C: Extended Bath Bench, Hip Kit Target Placement Family states that target placement is home with home health when pt. is physically ready. Treatment Plan/Plan of Care Treatment,Training & Education: Yes Patient would benefit from OT for education, treatment and training to promote independence in ADL's, mobility, safety and/or upper extremity function for ADL' s. Plan of Care: ADL Retraining Treatment Duration: May 02, 2017 Visits Per Week: 5 Agreement: Yes Rehab Potential: Fair Time/GCodes Start Time: 13:05 Stop Time: 13:25 Total Time Billed (hr/min): 20 Billed Treatment Time 1, EVHigh x 20minutes TORIBIO MARTIN OT Apr 11, 2017 13:53
[2017-04-11] MEDS ORDERED: EPINEPHrine INJECTION 1 MG/ML AMP ONE (14:10)
[2017-04-11] MEDS ORDERED: proPOfol 200 MG/20 ML (DIPRIVAN) VIAL IV ONE (15:40)
--- NOTE | 2017-04-11 15:47 | Wound Care Progress Note ---
Subjective Subjective Subjective/Events-last exam 86-year-old female admitted for upper GI bleed from alf facility. Noted to have unstageable pressure ulcer of the sacral region. Has had a recent episode of C. difficile colitis with incontinence of stool. The patient has been weak and has less mobility. Review of Systems Date Seen by Provider: Apr 11, 2017 Time Seen by Provider: 15:45 General: No Chills Pulmonary: No Dyspnea Gastrointestinal: Abdominal Pain, Nausea, Other (bloody emesis) Objective Exam Last Set of Vital Signs Vital Signs Date Time Temp Pulse Resp B/P (MAP) Pulse Ox O2 Delivery O2 Flow Rate FiO2 04/11/17 14:49 100 Nasal Cannula 2.00 04/11/17 14:30 97.7 92 22 176/80 Capillary Refill : Less Than 3 Seconds I&O Intake and Output 04/11/17 00:00 Intake Total 1450 ml Output Total 950 ml Balance 500 ml Intake Oral 0 ml IV Total 1450 ml Output Urine Total 950 ml # Voids 2 # Bowel Movements 2 General: Alert, No Acute Distress Lungs: Normal Air Movement Skin: Other (sacral ulcer: 0.7 0.5 x 0.2 cm, 100% slough, moderate serous drainage.) Results Lab Laboratory Tests 04/10/17 21:08: Hemoglobin 7.9L, Hematocrit 24L 04/11/17 03:48: Hemoglobin 7.3L, Hematocrit 23L, White Blood Count 13.6H, Red Blood Count 2.41L , Mean Corpuscular Volume 96, Mean Corpuscular Hemoglobin 30, Mean Corpuscular Hemoglobin Concent 32, Red Cell Distribution Width 18.3H, Platelet Count 164, Mean Platelet Volume 11.1H, Neutrophils (%) (Auto) 82H, Lymphocytes (%) (Auto) 10L, Monocytes (%) (Auto) 6, Eosinophils (%) (Auto) 1, Basophils (%) (Auto) 1, Neutrophils # (Auto) 11.2H, Lymphocytes # (Auto) 1.3, Monocytes # (Auto) 0.9, Eosinophils # (Auto) 0.1, Basophils # (Auto) 0.1, Sodium Level 143, Potassium Level 5.0, Chloride Level 119H, Carbon Dioxide Level 15L, Anion Gap 9, Blood Urea Nitrogen 72H, Creatinine 2.32H, Estimat Glomerular Filtration Rate 20, BUN/ Creatinine Ratio 31H, Glucose Level 108H, Calcium Level 7.9L, Phosphorus Level 3.6, Magnesium Level 1.7L 04/11/17 15:01: Lab Scanned Report Transfusion Reaction Form Microbiology 04/09/17 Blood Culture - Preliminary, Resulted No growth 04/09/17 Urine Culture - Final, Complete Klebsiella Pneumoniae Assessment/Plan Assessment/Plan Assessment/Plan 1. Unstageable sacral pressure ulcer, recent. 2. Upper GI hemorrhage. 3. Recent history of C. difficile colitis with stool incontinence. Plan: Patient is placed on silver alginate, bordered foam dressing to be changed daily and when necessary. She will be followed up closely. GENIE ASTUDILLO MD Apr 11, 2017 15:47
[2017-04-11] MEDS ORDERED: EPINEPHrine INJECTION 1 MG/ML AMP IV PRN (16:00)
[2017-04-11] MEDS ORDERED: meTOprolol 5 MG/5 ML (LOPRESSOR) VIAL ONE (16:12)
[2017-04-11] MEDS: D5 NS 1000 ML IV SOLUTION 1,000 ML IV SCH (17:06)
--- NOTE | 2017-04-11 17:41 | Operative Report ---
Operative Report Date of Procedure/Surgery Apr 11, 2017 Surgeon (s) ADARSH DIOP DO Art Appraiser (s): NA Post-Operative Diagnosis upper GI bleed, duodenal ulcer, gastritis, slight punctate bleeding from near cardia of stomach Procedure Performed egd c biopsy of duodenum, antrum, injection of epinephrine 3 mL near cardia of stomach Description of Procedure Anesthesia Type: Per Anesthesia Estimated blood loss (mL): none Specimen(s) collected/removed duodenum, antrum Description of the Procedure Patient in the intensive care unit. Anesthetic effect placed timeout was performed. The scope was inserted in the mouth down the esophagus stomach and into the duodenum. There is clot present in the stomach and duodenum but not to the extent of previously performed EGD. The duodenum and no polyps masses or ulcerations within the second portion of the duodenum. Scope was then slowly retracted back and the first portion of the duodenum there is a small 3 mm ulceration with surrounding erythema there is no active bleeding from this area. A biopsy was obtained. Scope was slowly retracted back into the stomach was further insufflated. There is questionable healing ulcer along the greater curvature of the stomach where there was some clot present which was able to be irrigated and evacuated. There was no bleeding from this area. The scope was retroflexed and noting some clot in the cardia. This was able to be irrigated and suctioned. This did take some time but upon it evaluating this there was 3 punctate small bleeds that were present. At these 3 sites 1 mL of epinephrine was injected which then did cause the bleeding to stop. Scope was returned to its normal position and slowly withdrawn into distal esophagus which did have some erythematous changes present. Scope was then slowly retracted back noting no other pathology. Patient tolerated procedure well without any complications. We'll continue to monitor hemoglobin. Will keep nothing by mouth at this time. Findings of the Procedure see above Allergies and Home Medications Allergies Coded Allergies: codeine (Verified Allergy, Unknown, 12/18/08) morphine (Verified Allergy, Unknown, 12/18/08) prednisone (Unverified Allergy, Unknown, 03/19/14) propoxyphene napsylate (Unverified Allergy, Unknown, 03/19/14) sulfamethoxazole (Verified Allergy, Unknown, 12/18/08) trimethoprim (Verified Allergy, Unknown, 12/18/08) Home Medications Acetaminophen 650 Mg Tablet.er, 650 MG PO Q6H PRN for PAIN-MILD, (Reported) Amlodipine Besylate 5 Mg Tablet, 5 MG PO DAILY, (Reported) Ascorbic Acid 1,000 Mg Tablet, 1,000 MG PO DAILY, (Reported) Aspirin 325 Mg Tabec, 325 MG PO DAILY, (Reported) Cholecalciferol (Vitamin D3) 5,000 Unit Tablet, 5,000 UNIT PO DAILY, (Reported) Cholestyramine (with Sugar) 4 Gm Powd.pack, 4 GM PO BID, (Reported) Citalopram Hydrobromide 10 Mg Tablet, 10 MG PO DAILY, (Reported) Diphenoxylate HCl/Atropine 1 Each Tablet, 1 TAB PO Q6H PRN for DIARRHEA, ( Reported) Fenofibric Acid (Choline) 135 Mg Capsule.dr, 135 MG PO HS, (Reported) Ferrous Sulfate 325 Mg Tablet, 325 MG PO BID, (Reported) Furosemide 40 Mg Tablet, 40 MG PO DAILY, (Reported) Lovastatin 40 Mg Tablet, 40 MG PO HS, (Reported) Magnesium Oxide 400 Mg Tablet, 400 MG PO BID, (Reported) Metoprolol Succinate 50 Mg Tab.er.24h, 50 MG PO BID, (Reported) Multivitamin with Minerals 1 Each Tablet, 1 TAB PO DAILY, (Reported) Nystatin 15 Gm Cream..g., TP TID for 10 Days, (Reported) 10 DAY THERAPY STOP DATE 04-14-17 Ondansetron HCl 4 Mg Tab, 4 MG PO Q6H PRN for NAUSEA/VOMITING-1ST LINE, ( Reported) Simethicone 80 Mg Tab.chew, 160 MG PO TID, (Reported) START DATE 03-31-17 END DATE 04-14-17 TAKES 2 (80MG) TABLETS Simethicone 80 Mg Tab.chew, 160 MG PO TID PRN for GAS, (Reported) START DATE 04-15-17 TAKES 2 (80MG) TABLETS ADARSH DIOP DO Apr 11, 2017 5:41 pm
[2017-04-12] VITALS (11 sets, daily range): BP systolic 146–183; BP diastolic 67–92
[2017-04-12 05:19] LABS: BASOPHILS # (AUTO) 0.1 10^3/uL (0.0-0.1); BASOPHILS % (AUTO) 1 % (0-10); EOSINOPHILS # (AUTO) 0.1 10^3/uL (0.0-0.3); EOSINOPHILS % (AUTO) 1 % (0-10); LYMPHOCYTES # (AUTO) 1.2 X 10^3 (1.0-4.0); LYMPHOCYTES % (AUTO) 8 % (12-44); MEAN CORPUSCULAR HEMOGLOBIN 30 PG (25-34); MEAN CORPUSCULAR HGB CONC 33 G/DL (32-36); MEAN CORPUSCULAR VOLUME 93 FL (80-99); MEAN PLATELET VOLUME 11.8 FL (7.4-10.4); MONOCYTES # (AUTO) 1.1 X 10^3 (0.0-1.0); MONOCYTES % (AUTO) 7 % (0-12); NEUTROPHILS # (AUTO) 12.5 X 10^3 (1.8-7.8); NEUTROPHILS % (AUTO) 84 % (42-75); PLATELET COUNT 80 10^3/uL (130-400); RED CELL DISTRIBUTION WIDTH 18.5 % (10.0-14.5); WHITE BLOOD COUNT 14.9 10^3/uL (4.3-11.0)
[2017-04-12 05:35] LABS: BAND NEUTROPHILS 0 %; BASOPHILS % (MANUAL) 0 %; EOSINOPHILS % (MANUAL) 1 %; LYMPHOCYTES % (MANUAL) 13 %; NEUTROPHILS % (MANUAL) 78 %
[2017-04-12 05:36] LABS: CRENATED RBC SLIGHT; POIKILOCYTOSIS SLIGHT
[2017-04-12 05:42] LABS: CALCIUM 8.2 MG/DL (8.5-10.1); CREATININE SERUM 2.18 MG/DL (0.60-1.30); MAGNESIUM 2.3 MG/DL (1.8-2.4); PHOSPHORUS 3.8 MG/DL (2.3-4.7); POTASSIUM 4.4 MMOL/L (3.6-5.0)
[2017-04-12] MEDS: MAGNESIUM 1 GM/100 ML IVPB 100 ML IV SCH (05:50)
[2017-04-12] MEDS: POTASSIUM CL 10MEQ/50ML IVPB 50 ML IV SCH (05:50)
[2017-04-12] MEDS ORDERED: PHARMACY TO DOSE IV SCH ×2 (06:15)
--- NOTE | 2017-04-12 06:19 | Pulmonary Progress Note ---
Subjective Time Seen by Provider: 06:00 Subjective/Events-last exam PT is s/p EGD has no complaints this AM. Exam Exam Vital Signs Date Time Temp Pulse Resp B/P (MAP) Pulse Ox O2 Delivery O2 Flow Rate FiO2 04/12/17 05:00 90 22 182/85 Nasal Cannula 2.00 04/12/17 04:00 91 24 183/92 Nasal Cannula 2.00 04/12/17 04:00 100 Nasal Cannula 2.00 04/12/17 03:00 89 15 180/84 97 Nasal Cannula 2.00 04/12/17 02:00 89 23 174/84 99 Nasal Cannula 2.00 04/12/17 01:00 80 04/12/17 01:00 80 17 173/78 100 Nasal Cannula 2.00 04/12/17 00:00 97.6 92 17 181/82 100 Nasal Cannula 2.00 04/12/17 00:00 100 Nasal Cannula 3.00 04/11/17 23:00 87 19 169/77 100 Nasal Cannula 2.00 04/11/17 22:00 93 22 178/86 99 Nasal Cannula 2.00 04/11/17 21:00 98 22 182/89 97 Nasal Cannula 2.00 04/11/17 20:00 103 20 178/88 99 Nasal Cannula 2.00 04/11/17 20:00 100 Nasal Cannula 3.00 04/11/17 20:00 98.8 04/11/17 19:26 100 Nasal Cannula 3.50 04/11/17 19:00 100 04/11/17 19:00 100 18 174/82 99 Nasal Cannula 2.00 04/11/17 18:00 105 26 172/82 96 Nasal Cannula 2.00 04/11/17 17:00 112 24 190/90 95 Nasal Cannula 2.00 04/11/17 16:00 100 Nasal Cannula 2.00 04/11/17 16:00 98.9 04/11/17 16:00 98.9 105 20 186/93 93 Nasal Cannula 2.00 04/11/17 16:00 102 40 168/91 97 Nasal Cannula 2.00 04/11/17 15:00 93 19 177/77 100 Nasal Cannula 2.00 04/11/17 14:49 100 Nasal Cannula 2.00 04/11/17 14:30 97.7 92 22 176/80 99 Nasal Cannula 2.00 04/11/17 14:13 99.1 92 18 166/67 100 Nasal Cannula 2.00 04/11/17 14:00 88 17 164/72 100 Nasal Cannula 2.00 04/11/17 13:50 97.5 92 20 166/73 99 Nasal Cannula 2.00 04/11/17 13:00 93 04/11/17 13:00 94 23 174/75 99 Nasal Cannula 2.00 04/11/17 12:58 98.0 04/11/17 12:00 100 Nasal Cannula 2.00 04/11/17 12:00 93 17 166/72 100 Nasal Cannula 2.00 04/11/17 11:45 97.5 98 20 163/77 98 Nasal Cannula 2.00 04/11/17 11:30 96.8 106 20 149/81 99 Nasal Cannula 2.00 04/11/17 11:00 98 22 149/81 100 Nasal Cannula 2.00 04/11/17 10:34 100 Nasal Cannula 2.00 04/11/17 10:06 100 Nasal Cannula 3.00 04/11/17 10:00 86 15 170/67 97 Nasal Cannula 2.00 04/11/17 09:55 100 04/11/17 09:00 86 20 168/71 100 Nasal Cannula 2.00 04/11/17 08:00 97.8 04/11/17 08:00 100 Nasal Cannula 2.00 04/11/17 08:00 90 16 181/82 100 Nasal Cannula 2.00 04/11/17 07:00 91 23 174/81 100 Nasal Cannula 2.00 04/11/17 07:00 89 I & O 04/12/17 07:00 Intake Total 270 ml Output Total 2300 ml Balance -2030 ml General Appearance: No Apparent Distress, Chronically ill HEENT: PERRL/EOMI, Other (DRY MUCOSAL SURFACE) Neck: Non Tender Respiratory: Chest Non Tender, No Accessory Muscle Use, No Respiratory Distress Cardiovascular: Regular Rate, Rhythm Capillary Refill: Less Than 3 Seconds Gastrointestinal: non tender, no organomegaly, other (slight tenderness right lower quadrant, hematoma ruq tender size of baseball) Extremity: Non Tender, No Calf Tenderness, No Pedal Edema Neurologic/Psychiatric: Alert, Depressed Affect Skin: Cool, Pallor, Other (HEALING PRESSURE ULCER ON MEDIAL LEFT FOOT/ANKLE AND NEW AREA OF BOGGINESS ON BOTTOM OF HEEL ON LEFT, SACRAL DECUBITUS ULCER - VERY SMALL AREA LESS THAN 2CM) Results Lab Laboratory Tests 04/10/17 13:11 04/10/17 21:08 04/11/17 03:48 04/11/17 20:45 04/12/17 03:45 Assessment/Plan Assessment/Plan Acute upper GIB -S/P EGD and transfusion 2units - protonix to BID 40mg IV -SCDs for DVT ppx -monitor H&H HCAP multifocal -Zosyn add vancomycin secondary to rising WBC will d/w pharmacy -repan culture -SVNS Debility/dementia -consult PT/OT Metabolic acidosis -repeat lactic acid -monitor -IVF labs and radiology reviewed. 233 45min spent with patient and medical staff Clinical Quality Measures DVT/VTE Risk/Contraindication: Risk Factor Score Per Nursin RFS Level Per Nursing on Admit: 3=High JACK DEGROOT DO Apr 12, 2017 06:19
[2017-04-12] MEDS ORDERED: VANCOMYCIN 1500 MG/NS 500 ML IVPB IV NR ×2 (07:30)
[2017-04-12] MEDS: RT-ALBUTEROL/IPRATROPIUM 3 ML (DUONEB) VIAL INH SCH ×4 (07:40→19:00)
--- NOTE | 2017-04-12 09:14 | Progress Note (SOAP) ---
Subjective Date Seen by Provider: Apr 12, 2017 Time Seen by Provider: 08:15 Subjective/Events-last exam PT REPORTS THAT SHE IS FEELING A LITTLE BIT BETTER TODAY - HER GRANDDAUGHTER - FLY IS AT BEDSIDE TODAY - SHE REPORTS THAT MADIE IS WANTING TO HAVE MORE TO EAT/DRINK TODAY IF POSSIBLE. SHE DENIES ANY QUESTIONS EXCEPT FOR PLANS FOR MADIE ON DISCHARGE - SHE DOES NOT WANT MADIE TO GO BACK TO [facility]. Review of Systems General: Fatigue, Malaise Pulmonary: Dyspnea, No Cough Cardiovascular: No: Chest Pain, Palpitations Gastrointestinal: No: Abdominal Pain, Nausea Neurological: Weakness, No: Confusion Objective Exam Vital Signs Date Time Temp Pulse Resp B/P (MAP) Pulse Ox O2 Delivery O2 Flow Rate FiO2 04/12/17 07:40 98 Nasal Cannula 2.00 04/12/17 07:00 92 04/12/17 06:00 87 17 181/81 Nasal Cannula 2.00 04/12/17 05:00 90 22 182/85 Nasal Cannula 2.00 04/12/17 04:00 91 24 183/92 Nasal Cannula 2.00 04/12/17 04:00 100 Nasal Cannula 2.00 04/12/17 03:00 89 15 180/84 97 Nasal Cannula 2.00 04/12/17 02:00 89 23 174/84 99 Nasal Cannula 2.00 04/12/17 01:00 80 04/12/17 01:00 80 17 173/78 100 Nasal Cannula 2.00 04/12/17 00:00 97.6 92 17 181/82 100 Nasal Cannula 2.00 04/12/17 00:00 100 Nasal Cannula 3.00 04/11/17 23:00 87 19 169/77 100 Nasal Cannula 2.00 04/11/17 22:00 93 22 178/86 99 Nasal Cannula 2.00 04/11/17 21:00 98 22 182/89 97 Nasal Cannula 2.00 04/11/17 20:00 103 20 178/88 99 Nasal Cannula 2.00 04/11/17 20:00 100 Nasal Cannula 3.00 04/11/17 20:00 98.8 04/11/17 19:26 100 Nasal Cannula 3.50 04/11/17 19:00 100 04/11/17 19:00 100 18 174/82 99 Nasal Cannula 2.00 04/11/17 18:00 105 26 172/82 96 Nasal Cannula 2.00 04/11/17 17:00 112 24 190/90 95 Nasal Cannula 2.00 04/11/17 16:00 100 Nasal Cannula 2.00 04/11/17 16:00 98.9 04/11/17 16:00 98.9 105 20 186/93 93 Nasal Cannula 2.00 04/11/17 16:00 102 40 168/91 97 Nasal Cannula 2.00 04/11/17 15:00 93 19 177/77 100 Nasal Cannula 2.00 04/11/17 14:49 100 Nasal Cannula 2.00 04/11/17 14:30 97.7 92 22 176/80 99 Nasal Cannula 2.00 04/11/17 14:13 99.1 92 18 166/67 100 Nasal Cannula 2.00 04/11/17 14:00 88 17 164/72 100 Nasal Cannula 2.00 04/11/17 13:50 97.5 92 20 166/73 99 Nasal Cannula 2.00 04/11/17 13:00 93 04/11/17 13:00 94 23 174/75 99 Nasal Cannula 2.00 04/11/17 12:58 98.0 04/11/17 12:00 100 Nasal Cannula 2.00 04/11/17 12:00 93 17 166/72 100 Nasal Cannula 2.00 04/11/17 11:45 97.5 98 20 163/77 98 Nasal Cannula 2.00 04/11/17 11:30 96.8 106 20 149/81 99 Nasal Cannula 2.00 04/11/17 11:00 98 22 149/81 100 Nasal Cannula 2.00 04/11/17 10:34 100 Nasal Cannula 2.00 04/11/17 10:06 100 Nasal Cannula 3.00 04/11/17 10:00 86 15 170/67 97 Nasal Cannula 2.00 04/11/17 09:55 100 I & O 04/12/17 07:00 Intake Total 270 ml Output Total 2300 ml Balance -2030 ml Capillary Refill : Less Than 3 Seconds General Appearance: No Apparent Distress, WD/WN HEENT: PERRL/EOMI Neck: Supple Respiratory: Chest Non Tender, Crackles (BILATERAL BASES - LEFT GREATER THAN RIGHT), Decreased Breath Sounds Cardiovascular: Regular Rate, Rhythm Gastrointestinal: normal bowel sounds, non tender, soft, other (13 X 13 CM HEMATOMA - SOFTER TODAY - RIGHT MID TO LOWER QUADRANT) Extremity: No Pedal Edema Neurologic/Psychiatric: Alert, Oriented x3, No Motor/Sensory Deficits, Other ( FLAT AFFECT) Skin: Warm/Dry, Pallor Lymphatic: No Adenopathy Results Lab Laboratory Tests 04/11/17 15:01: Lab Scanned Report Transfusion Reaction Form 04/11/17 20:45: Hemoglobin 10.3#L, Hematocrit 32L 04/12/17 03:45: Hemoglobin 10.3L, Hematocrit 32L, White Blood Count 14.9H, Red Blood Count 3.40L , Mean Corpuscular Volume 93, Mean Corpuscular Hemoglobin 30, Mean Corpuscular Hemoglobin Concent 33, Red Cell Distribution Width 18.5H, Platelet Count 80L, Mean Platelet Volume 11.8H, Neutrophils (%) (Auto) 84H, Lymphocytes (%) (Auto) 8L, Monocytes (%) (Auto) 7, Eosinophils (%) (Auto) 1, Basophils (%) (Auto) 1, Neutrophils # (Auto) 12.5H, Lymphocytes # (Auto) 1.2, Monocytes # (Auto) 1.1H, Eosinophils # (Auto) 0.1, Basophils # (Auto) 0.1, Neutrophils % (Manual) 78, Lymphocytes % (Manual) 13, Monocytes % (Manual) 8, Eosinophils % (Manual) 1, Basophils % (Manual) 0, Band Neutrophils 0, Toxic Granulation 1+, Poikilocytosis SLIGHT, Crenated Cell SLIGHT, Sodium Level 145, Potassium Level 4.4, Chloride Level 120H, Carbon Dioxide Level 14L, Anion Gap 11, Blood Urea Nitrogen 61H, Creatinine 2.18H, Estimat Glomerular Filtration Rate 21, BUN/ Creatinine Ratio 28, Glucose Level 139H, Calcium Level 8.2L, Phosphorus Level 3.8, Magnesium Level 2.3 04/12/17 07:01: Lactic Acid Level 0.94 Microbiology 04/09/17 Blood Culture - Preliminary, Resulted No growth 04/09/17 Urine Culture - Final, Complete Klebsiella Pneumoniae Assessment/Plan Assessment/Plan Assess & Plan/Chief Complaint ACUTE GASTROINTESTINAL BLEED SEVERE ANEMIA PNEUMONIA HYPERTENSION WEAKNESS DEPRESSION CONSTIPATION ACUTE GASTROINTESTINAL BLEED - DEFER TO DR. DIOP - TAKE FOR REPEAT EGD YESTERDAY EVENING - HGB STABLE POST TRANSFUSION YESTERDAY AT 10.3- PT ON PROTONIX, OCTREOTIDE, MONITOR H AND H SEVERE ANEMIA - STABILIZED -TRANSFUSE PRN - MONITOR HEMOGLOBIN, WAITING ON ANEMIA ANALYZER - MAY NEED TO CONSIDER ERYTHROPOIETIN PNEUMONIA - PT ON IV ANTIBIOTICS - CONTINUE WITH ZOSYN, GIVE VANCOMYCIN AND MONITOR SERIAL CHEST XRAYS. HYPERTENSION - CHRONIC -WILL RESTART HOME MEDICATIONS TODAY PT IS TAKING PO TODAY. WEAKNESS - WILL START PHYSICAL THERAPY TODAY. DEPRESSION -RESTART CELEXA. CONSTIPATION - - MONITOR OUTPUT, PT RECENTLY HAD CDIFF, NEED TO START ON PROBIOTIC TODAY DVT PROPHYLAXIS - WILL USE SCD'S, BUT WILL NOT GIVE LOVENOX DUE TO HER GI BLEEDING Clinical Quality Measures DVT/VTE Risk/Contraindication: Risk Factor Score Per Nursin RFS Level Per Nursing on Admit: 3=High ADITHYA DORADO MD Apr 12, 2017 09:14
--- NOTE | 2017-04-12 09:45 | Diagnostic Imaging Report ---
EXAMINATION: Portable upright radiograph of the chest. COMPARISON: 04/11/2017. INDICATION: Upper GI bleed. FINDINGS: There is an infiltrate in the lateral mid right lung without significant change from the previous study. There is also left basilar infiltrate or atelectasis, increased from the previous study, with a small left effusion. Mild patchy infiltrates are also noted in the lateral mid left lung. No pneumothorax. The heart size is mildly enlarged. IMPRESSION: Bilateral midlung zone infiltrates, minimally increased from the previous exam. Increasing left basilar atelectasis and a small effusion. Dictated by: Dictated on workstation # [id number]
--- NOTE | 2017-04-12 09:53 | Progress Note ---
Subjective Time Seen by Provider: 08:16 Subjective/Events-last exam The patient is resting in bed. Easily aroused. No signs of distress noted. Family at bedside. Objective Exam Vital Signs Date Time Temp Pulse Resp B/P (MAP) Pulse Ox O2 Delivery O2 Flow Rate FiO2 04/12/17 08:00 100 Nasal Cannula 2.00 04/12/17 07:40 98 Nasal Cannula 2.00 04/12/17 07:00 92 04/12/17 06:00 87 17 181/81 Nasal Cannula 2.00 04/12/17 05:00 90 22 182/85 Nasal Cannula 2.00 04/12/17 04:00 91 24 183/92 Nasal Cannula 2.00 04/12/17 04:00 100 Nasal Cannula 2.00 04/12/17 03:00 89 15 180/84 97 Nasal Cannula 2.00 04/12/17 02:00 89 23 174/84 99 Nasal Cannula 2.00 04/12/17 01:00 80 04/12/17 01:00 80 17 173/78 100 Nasal Cannula 2.00 04/12/17 00:00 97.6 92 17 181/82 100 Nasal Cannula 2.00 04/12/17 00:00 100 Nasal Cannula 3.00 04/11/17 23:00 87 19 169/77 100 Nasal Cannula 2.00 04/11/17 22:00 93 22 178/86 99 Nasal Cannula 2.00 04/11/17 21:00 98 22 182/89 97 Nasal Cannula 2.00 04/11/17 20:00 103 20 178/88 99 Nasal Cannula 2.00 04/11/17 20:00 100 Nasal Cannula 3.00 04/11/17 20:00 98.8 04/11/17 19:26 100 Nasal Cannula 3.50 04/11/17 19:00 100 04/11/17 19:00 100 18 174/82 99 Nasal Cannula 2.00 04/11/17 18:00 105 26 172/82 96 Nasal Cannula 2.00 04/11/17 17:00 112 24 190/90 95 Nasal Cannula 2.00 04/11/17 16:00 100 Nasal Cannula 2.00 04/11/17 16:00 98.9 04/11/17 16:00 98.9 105 20 186/93 93 Nasal Cannula 2.00 04/11/17 16:00 102 40 168/91 97 Nasal Cannula 2.00 04/11/17 15:00 93 19 177/77 100 Nasal Cannula 2.00 04/11/17 14:49 100 Nasal Cannula 2.00 04/11/17 14:30 97.7 92 22 176/80 99 Nasal Cannula 2.00 04/11/17 14:13 99.1 92 18 166/67 100 Nasal Cannula 2.00 04/11/17 14:00 88 17 164/72 100 Nasal Cannula 2.00 04/11/17 13:50 97.5 92 20 166/73 99 Nasal Cannula 2.00 04/11/17 13:00 93 04/11/17 13:00 94 23 174/75 99 Nasal Cannula 2.00 04/11/17 12:58 98.0 04/11/17 12:00 100 Nasal Cannula 2.00 04/11/17 12:00 93 17 166/72 100 Nasal Cannula 2.00 04/11/17 11:45 97.5 98 20 163/77 98 Nasal Cannula 2.00 04/11/17 11:30 96.8 106 20 149/81 99 Nasal Cannula 2.00 04/11/17 11:00 98 22 149/81 100 Nasal Cannula 2.00 04/11/17 10:34 100 Nasal Cannula 2.00 04/11/17 10:06 100 Nasal Cannula 3.00 04/11/17 10:00 86 15 170/67 97 Nasal Cannula 2.00 04/11/17 09:55 100 I & O 04/12/17 07:00 Intake Total 270 ml Output Total 2300 ml Balance -2030 ml Capillary Refill : Less Than 3 Seconds General Appearance: WD/WN, Thin HEENT: PERRL/EOMI Neck: Supple Respiratory: Chest Non Tender, No Accessory Muscle Use, No Respiratory Distress Cardiovascular: Regular Rate, Rhythm Gastrointestinal: normal bowel sounds, non tender, soft, other (13 X 13 CM HEMATOMA RIGHT MID TO LOWER QUADRANT) Extremity: No Pedal Edema Neurologic/Psychiatric: Alert, Oriented x3, No Motor/Sensory Deficits, Other ( FLAT AFFECT) Skin: Warm/Dry, Pallor Lymphatic: No Adenopathy Results Lab Laboratory Tests Test 04/10/17 13:11 04/10/17 21:08 04/11/17 03:48 04/11/17 15:01 Range/Units Hemoglobin 8.1 L 7.9 L 7.3 L 11.5-16.0 G/DL Hematocrit 26 L 24 L 23 L 35-52 % White Blood Count 13.6 H 4.3-11.0 10^3/uL Red Blood Count 2.41 L 4.35-5.85 10^6/uL Mean Corpuscular Volume 96 80-99 FL Mean Corpuscular Hemoglobin 30 25-34 PG Mean Corpuscular Hemoglobin Concent 32 32-36 G/DL Red Cell Distribution Width 18.3 H 10.0-14.5 % Platelet Count 164 130-400 10^3/uL Mean Platelet Volume 11.1 H 7.4-10.4 FL Neutrophils (%) (Auto) 82 H 42-75 % Lymphocytes (%) (Auto) 10 L 12-44 % Monocytes (%) (Auto) 6 0-12 % Eosinophils (%) (Auto) 1 0-10 % Basophils (%) (Auto) 1 0-10 % Neutrophils # (Auto) 11.2 H 1.8-7.8 X 10^3 Lymphocytes # (Auto) 1.3 1.0-4.0 X 10^3 Monocytes # (Auto) 0.9 0.0-1.0 X 10^3 Eosinophils # (Auto) 0.1 0.0-0.3 10^3/uL Basophils # (Auto) 0.1 0.0-0.1 10^3/uL Sodium Level 143 135-145 MMOL/L Potassium Level 5.0 3.6-5.0 MMOL/L Chloride Level 119 H 98-107 MMOL/L Carbon Dioxide Level 15 L 21-32 MMOL/L Anion Gap 9 5-14 MMOL/L Blood Urea Nitrogen 72 H 7-18 MG/DL Creatinine 2.32 H 0.60-1.30 MG/DL Estimat Glomerular Filtration Rate 20 BUN/Creatinine Ratio 31 H 0-20 Glucose Level 108 H 70-105 MG/DL Calcium Level 7.9 L 8.5-10.1 MG/DL Phosphorus Level 3.6 2.3-4.7 MG/DL Magnesium Level 1.7 L 1.8-2.4 MG/DL Lab Scanned Report Transfusion Reaction Form [id number] Test 04/11/17 20:45 04/12/17 03:45 04/12/17 07:01 Range/Units Hemoglobin 10.3 #L 10.3 L 11.5-16.0 G/DL Hematocrit 32 L 32 L 35-52 % White Blood Count 14.9 H 4.3-11.0 10^3/uL Red Blood Count 3.40 L 4.35-5.85 10^6/uL Mean Corpuscular Volume 93 80-99 FL Mean Corpuscular Hemoglobin 30 25-34 PG Mean Corpuscular Hemoglobin Concent 33 32-36 G/DL Red Cell Distribution Width 18.5 H 10.0-14.5 % Platelet Count 80 L 130-400 10^3/uL Mean Platelet Volume 11.8 H 7.4-10.4 FL Neutrophils (%) (Auto) 84 H 42-75 % Lymphocytes (%) (Auto) 8 L 12-44 % Monocytes (%) (Auto) 7 0-12 % Eosinophils (%) (Auto) 1 0-10 % Basophils (%) (Auto) 1 0-10 % Neutrophils # (Auto) 12.5 H 1.8-7.8 X 10^3 Lymphocytes # (Auto) 1.2 1.0-4.0 X 10^3 Monocytes # (Auto) 1.1 H 0.0-1.0 X 10^3 Eosinophils # (Auto) 0.1 0.0-0.3 10^3/uL Basophils # (Auto) 0.1 0.0-0.1 10^3/uL Neutrophils % (Manual) 78 % Lymphocytes % (Manual) 13 % Monocytes % (Manual) 8 % Eosinophils % (Manual) 1 % Basophils % (Manual) 0 % Band Neutrophils 0 % Toxic Granulation 1+ Poikilocytosis SLIGHT Crenated Cell SLIGHT Sodium Level 145 135-145 MMOL/L Potassium Level 4.4 3.6-5.0 MMOL/L Chloride Level 120 H 98-107 MMOL/L Carbon Dioxide Level 14 L 21-32 MMOL/L Anion Gap 11 5-14 MMOL/L Blood Urea Nitrogen 61 H 7-18 MG/DL Creatinine 2.18 H 0.60-1.30 MG/DL Estimat Glomerular Filtration Rate 21 BUN/Creatinine Ratio 28 Glucose Level 139 H 70-105 MG/DL Calcium Level 8.2 L 8.5-10.1 MG/DL Phosphorus Level 3.8 2.3-4.7 MG/DL Magnesium Level 2.3 1.8-2.4 MG/DL Lactic Acid Level 0.94 0.50-2.00 MMOL/L Laboratory Tests 04/11/17 15:01: Lab Scanned Report Transfusion Reaction Form 04/11/17 20:45: Hemoglobin 10.3#L, Hematocrit 32L 04/12/17 03:45: Hemoglobin 10.3L, Hematocrit 32L, White Blood Count 14.9H, Red Blood Count 3.40L , Mean Corpuscular Volume 93, Mean Corpuscular Hemoglobin 30, Mean Corpuscular Hemoglobin Concent 33, Red Cell Distribution Width 18.5H, Platelet Count 80L, Mean Platelet Volume 11.8H, Neutrophils (%) (Auto) 84H, Lymphocytes (%) (Auto) 8L, Monocytes (%) (Auto) 7, Eosinophils (%) (Auto) 1, Basophils (%) (Auto) 1, Neutrophils # (Auto) 12.5H, Lymphocytes # (Auto) 1.2, Monocytes # (Auto) 1.1H, Eosinophils # (Auto) 0.1, Basophils # (Auto) 0.1, Neutrophils % (Manual) 78, Lymphocytes % (Manual) 13, Monocytes % (Manual) 8, Eosinophils % (Manual) 1, Basophils % (Manual) 0, Band Neutrophils 0, Toxic Granulation 1+, Poikilocytosis SLIGHT, Crenated Cell SLIGHT, Sodium Level 145, Potassium Level 4.4, Chloride Level 120H, Carbon Dioxide Level 14L, Anion Gap 11, Blood Urea Nitrogen 61H, Creatinine 2.18H, Estimat Glomerular Filtration Rate 21, BUN/ Creatinine Ratio 28, Glucose Level 139H, Calcium Level 8.2L, Phosphorus Level 3.8, Magnesium Level 2.3 04/12/17 07:01: Lactic Acid Level 0.94 Microbiology 04/09/17 Blood Culture - Preliminary, Resulted No growth 04/09/17 Urine Culture - Final, Complete Klebsiella Pneumoniae Assessment/Plan Assessment/Plan Assessment/Plan gi bleed-upper with hematemesis. H&H 10.3 and 27. acute diverticulitis UTI Stomach Ulcers hematoma abdominal ruq from recent cholecystectomy anemia secondary to gi bleed. EGD done yesterday- Ulcers noted. iv abx for diverticulitis and UTI protonix 40 mg IV BID IV fluids Sips of clears and slowly advance diet as tolerated. Pappas-patient still feeling weak. Her hemoglobin has stabilized at 10.3. She was found to have ulcer in the duodenum and also some punctate bleeds near cardia of stomach. Patient having dark stool. No nausea vomiting fever sweats chills shortness of breath or chest pain at this time. Gen. patient's in no acute distress heart regular Longs unlabored breathing Abdomen soft nondistended hematoma right upper quadrant may be slightly smaller no tenderness on palpation no guarding or rebounding Extremities nontender Normal mood and affect Alert Upper GI bleed secondary to duodenal ulcer or punctate small bleeds near cardia of stomach. She had EGD and had the punctate bleeds injected with epinephrine. Her hemoglobin has stabilized. We'll continue on Protonix Increasing infiltrates on chest x-ray. Adding incentive spirometer Diverticulitis by CT scan she is on antibiotics. We will start her on clears continue to follow hemoglobin. Transfuse as needed Clinical Quality Measures DVT/VTE Risk/Contraindication: Risk Factor Score Per Nursin RFS Level Per Nursing on Admit: 3=High HANNAH OLMSTEAD APRN Apr 12, 2017 09:53 ADARSH PAPPAS DO Apr 12, 2017 11:58
--- NOTE | 2017-04-12 11:14 | Occupational Ther Daily Note ---
OT Current Status-Daily Note Subjective Pt in bed, agrees to treatment. Pt has no reports of pain, but states she is tired. Mental Status/Objective Functional [place] Measure 0=Not Assessed/NA 4=Minimal Assistance 1=Total Assistance 5=Supervision or Setup 2=Maximal Assistance 6=Modified [place] 3=Moderate Assistance 7=Complete [place] Attachments: Robles Catheter, IV, Oxygen Other Treatment Pt just transferred from ICU to 4th floor. Pt agreeable to UE activity in bed. Pt performed bilateral UE AROM x10 reps at all joints to promote increased strength and activity tolerance needed for ADLs and transfers. Pt able to track reps with occasional cues. Rest breaks taken between all exercises. Pt resting in bed with needs met and family members present after session. OT Short Term Goals Short Term Goals Time Frame: Apr 18, 2017 Eating(FIM): 4 Grooming(FIM): 4 Bathing(FIM): 3 Upper Body Dressing(FIM): 4 Lower Body Dressing(FIM): 3 Toileting(FIM): 4 Transfers (B,C,W/C) (FIM): 4 Toilet/Commode Transfer(FIM): 4 Additional Short Term Goals: 1-Demonstrate ADL Tasks, 2-Verbalize Understanding , 3-ImproveStrength/Izzy 1=Demonstrate adherence to instructed precautions during ADL tasks. 2=Patient will verbalize/demonstrate understanding of assistive devices/ modifications for ADL. 3=Patient will improve strength/tolerance for activity to enable patient to perform ADL's. OT Ice Cream Dispenser Goals Retirement Goals Time Frame: May 02, 2017 Eating (FIM): 6 Grooming(FIM): 5 Bathing(FIM): 4 Upper Body Dressing(FIM): 5 Lower Body Dressing(FIM): 5 Toileting(FIM): 5 Transfers (B,C,W/C) (FIM): 6 Toilet/Commode Transfer(FIM): 6 Shower Transfer(FIM): 5 Additional Goals: 1-Demonstrate ADL Tasks, 2-Verbalize Understanding, 3- ImproveStrength/Izzy 1=Demonstrate adherence to instructed precautions during ADL tasks. 2=Patient will verbalize/demonstrate understanding of assistive devices/ modifications for ADL. 3=Patient will improve strength/tolerance for activity to enable patient to perform ADL's. OT Education/Plan Discharge Recommendations Plan/Recommendations: Continue POC Treatment Plan/Plan of Care Patient would benefit from OT for education, treatment and training to promote independence in ADL's, mobility, safety and/or upper extremity function for ADL' s. Plan of Care: ADL Retraining Treatment Duration: May 02, 2017 Visits Per Week: 5 Agreement: Yes Rehab Potential: Fair Time/GCodes Start Time: 10:52 Stop Time: 11:04 Total Time Billed (hr/min): 12 Billed Treatment Time 1 visit, EX(12minutes) TIFFANI UMAÑA OT Apr 12, 2017 11:14
[2017-04-12] MEDS: amLODIPine 5 MG (NORVASC) TAB PO SCH (11:36)
[2017-04-12] MEDS: LACTOBACILLUS Acidoph/Bulgar (LACTINEX/FLORANEX) TAB PO SCH ×2 (11:36→16:47)
[2017-04-12] MEDS: PANTOPRAZOLE 40 MG/10 ML (PROTONIX) VIAL IV SCH ×2 (11:36→21:27)
[2017-04-12] MEDS: PIPERACILLIN SODIUM/TAZOBACTAM 4.5 GM in NS (IVPB) 100 ML IV SCH ×2 (11:37→21:27)
[2017-04-12] MEDS: D5 NS 1000 ML IV SOLUTION 1,000 ML IV SCH ×2 (11:40→12:23)
--- NOTE | 2017-04-12 14:19 | Physical Therapy Daily Note ---
PT Daily Note-Current Subjective Patient in bed pre tx, agrees to PT, has no complaints of pain. Appearance Patient in recliner post tx with nurse call, phone, tray, all needs met. Mental Status Patient Orientation: Person, Place Attachments: Oxygen, Robles Catheter, IV Transfers Functional [place] Measure 0=Not Assessed/NA 4=Minimal Assistance 1=Total Assistance 5=Supervision or Setup 2=Maximal Assistance 6=Modified [place] 3=Moderate Assistance 7=Complete IndependenceIRFPAI Quality Coding Scale 6 Independent with activity with or without an assistive device 5 Patient requires set up or clean up by helper. Patient completes activity by themselves 4 Supervision or touching assist (CGA). [place] provide cues , steadying assist 3 The helper provides less than half the effort to complete the activity 2 The helper provides more than half the effort to complete the activity 1 Dependent. The helper does all the effort to complete an activity 7 Patient refused to complete or attempt activity 9 The patient did not perform the activity before the current illness or injury 88 Not attempted due to Medical conditions or safety concerns Transfers (B, C, W/C) (FIM): 4 Scootin Rollin Supine to/from Sit: 4 min assist for bed mobility, needs help with one leg from supine to sit Gait Training Gait (FIM): 1 Distance: 8' Gait Level of Assist: 4 Gait Persons Needed: 1 Gait Assistive Device: FWW CGA, slow, very fatigued after ambulation Exercises Seated Therapy Exercises: Ankle pumps, Long arc quads, Hip flexion Seated Reps: 15 Treatments bed mobility and transfers, ambulation Assessment Current Status: Fair Progress improved bed mobility, transfers, and ambulation PT Short Term Goals Short Term Goals Transfers (B,C,W/C) (FIM): 4 PT Residential Goals Nursing Program Director Goals PT Nursing Program Director Goals Time Frame: Apr 18, 2017 Transfers (B,C,W/C) (FIM): 6 Gait (FIM): 6 Gait distance (FIM): 3=150 ft Gait Assistive Device: FWW PT Plan Problem List Problem List: Activity Tolerance, Functional Strength, Safety, Balance, Gait, Transfer, Bed Mobility Treatment/Plan Treatment Plan: Continue Plan of Care Treatment Plan: Bed Mobility, Education, Functional Activity Izzy, Functional Strength, Gait, Safety, Therapeutic Exercise, Transfers Treatment Duration: Apr 18, 2017 Visits Per Week: 6 Safety Risks/Education Patient Education: Gait Training, Transfer Techniques, Correct Positioning, Safety Issues Teaching Recipient: Patient Teaching Methods: Demonstration, Discussion Response to Teaching: Reinforcement Needed Time/GCodes Time In: 1400 Time Out: 1415 Total Billed Treatment Time: 15 Total Billed Treatment 1 visit GT 15' CATRACHITO ALFORD PT Apr 12, 2017 14:19
[2017-04-12 19:23] LABS: BILIRUBIN,URINE NEGATIVE (NEGATIVE); KETONES,URINE NEGATIVE (NEGATIVE); LEUKOCYTE ESTERASE ,URINE 3+ (NEGATIVE); NITRITE,URINE NEGATIVE (NEGATIVE); PH,URINE 5 (5-9); PROTEIN,URINE 2+ (NEGATIVE); UROBILINOGEN,URINE NORMAL (NORMAL)
[2017-04-12 19:24] LABS: WBC,URINE 0-2 /HPF; YEAST,URINE LARGE /HPF
[2017-04-12] MEDS: meTOproloL SUCCINATE 50 MG (TOPROL XL) TAB PO SCH (21:27)
[2017-04-13] MEDS: D5 NS 1000 ML IV SOLUTION 1,000 ML IV SCH ×2 (00:15→15:10)
[2017-04-13 04:00] VITALS: BP 175/82
[2017-04-13] MEDS: LACTOBACILLUS Acidoph/Bulgar (LACTINEX/FLORANEX) TAB PO SCH ×3 (06:10→15:10)
[2017-04-13 06:39] LABS: BASOPHILS % (AUTO) 0 % (0-10); EOSINOPHILS # (AUTO) 0.3 10^3/uL (0.0-0.3); EOSINOPHILS % (AUTO) 2 % (0-10); LYMPHOCYTES # (AUTO) 1.1 X 10^3 (1.0-4.0); LYMPHOCYTES % (AUTO) 9 % (12-44); MEAN CORPUSCULAR HEMOGLOBIN 30 PG (25-34); MEAN CORPUSCULAR HGB CONC 32 G/DL (32-36); MEAN CORPUSCULAR VOLUME 93 FL (80-99); MEAN PLATELET VOLUME 10.6 FL (7.4-10.4); MONOCYTES # (AUTO) 0.9 X 10^3 (0.0-1.0); MONOCYTES % (AUTO) 7 % (0-12); NEUTROPHILS # (AUTO) 10.6 X 10^3 (1.8-7.8); NEUTROPHILS % (AUTO) 82 % (42-75); PLATELET COUNT 141 10^3/uL (130-400); RED BLOOD COUNT 3.18 10^6/uL (4.35-5.85); RED CELL DISTRIBUTION WIDTH 18.2 % (10.0-14.5)
[2017-04-13] MEDS ORDERED: TROUGH ORDER-PHARMACY XX NR (07:00)
[2017-04-13 07:01] LABS: CALCIUM 7.7 MG/DL (8.5-10.1); CREATININE SERUM 1.73 MG/DL (0.60-1.30); MAGNESIUM 1.7 MG/DL (1.8-2.4); PHOSPHORUS 2.7 MG/DL (2.3-4.7); POTASSIUM 3.4 MMOL/L (3.6-5.0)
--- NOTE | 2017-04-13 07:35 | Pulmonary Progress Note ---
Subjective Time Seen by Provider: 07:33 Subjective/Events-last exam pt c/o LE otherwise feels improved. Exam Exam Vital Signs Date Time Temp Pulse Resp B/P (MAP) Pulse Ox O2 Delivery O2 Flow Rate FiO2 04/13/17 04:00 98.0 86 20 175/82 94 Nasal Cannula 2.00 04/12/17 23:35 97.7 94 22 168/67 97 Nasal Cannula 2.00 04/12/17 20:15 97 Nasal Cannula 2.00 04/12/17 19:35 98.7 106 18 146/70 98 Nasal Cannula 2.00 04/12/17 19:04 93 Nasal Cannula 1.00 04/12/17 15:35 97.8 98 18 170/70 98 Nasal Cannula 2.00 04/12/17 15:23 97 Nasal Cannula 2.00 04/12/17 12:00 98.3 109 20 160/74 96 Nasal Cannula 2.00 04/12/17 10:18 97 Nasal Cannula 2.00 04/12/17 08:00 100 Nasal Cannula 2.00 04/12/17 07:40 98 Nasal Cannula 2.00 I & O 04/13/17 07:00 Intake Total 1900 ml Output Total 900 ml Balance 1000 ml General Appearance: WD/WN, Thin HEENT: PERRL/EOMI Neck: Supple Respiratory: Chest Non Tender, No Accessory Muscle Use, No Respiratory Distress Cardiovascular: Regular Rate, Rhythm Capillary Refill: Less Than 3 Seconds Gastrointestinal: normal bowel sounds, non tender, soft, other (13 X 13 CM HEMATOMA RIGHT MID TO LOWER QUADRANT) Extremity: No Pedal Edema Neurologic/Psychiatric: Alert, Oriented x3, No Motor/Sensory Deficits, Other ( FLAT AFFECT) Skin: Warm/Dry, Pallor Lymphatic: No Adenopathy Results Lab Laboratory Tests 04/11/17 20:45 04/12/17 03:45 04/12/17 15:50 04/13/17 06:15 Assessment/Plan Assessment/Plan Acute upper GIB -S/P EGD and transfusion 2units - protonix to BID 40mg IV -SCDs for DVT ppx -monitor H&H HCAP multifocal with atelectasis -Zosyn vancomycin -repan culture -SVNS -Add IS Debility/dementia -PT/OT Metabolic acidosis -monitor -IVF labs and radiology reviewed. 232 Clinical Quality Measures DVT/VTE Risk/Contraindication: Risk Factor Score Per Nursin RFS Level Per Nursing on Admit: 3=High JACK DEGROOT DO Apr 13, 2017 07:35
[2017-04-13] MEDS: RT-ALBUTEROL/IPRATROPIUM 3 ML (DUONEB) VIAL INH SCH ×4 (07:48→19:00)
[2017-04-13 08:00] VITALS: BP 196/85
[2017-04-13] MEDS: amLODIPine 5 MG (NORVASC) TAB PO SCH (08:16)
[2017-04-13] MEDS: meTOproloL SUCCINATE 50 MG (TOPROL XL) TAB PO SCH ×2 (08:16→20:48)
[2017-04-13] MEDS: PANTOPRAZOLE 40 MG/10 ML (PROTONIX) VIAL IV SCH ×2 (08:16→20:48)
[2017-04-13] MEDS: PIPERACILLIN SODIUM/TAZOBACTAM 4.5 GM in NS (IVPB) 100 ML IV SCH ×2 (08:17→20:48)
--- NOTE | 2017-04-13 08:39 | Diagnostic Imaging Report ---
INDICATION: Atelectasis. COMPARISON STUDY: Chest from yesterday. FINDINGS: Frontal and lateral view chest demonstrates improving bilateral mid lung infiltrates. These have nearly resolved. Left basilar atelectasis and pleural effusion have decreased. A small pleural effusion is now evident on the right side. Right arm PICC line has been placed with its tip approximately 1-2 cm into the right atrium. IMPRESSION: 1. Improving pulmonary infiltrates left lower lobe atelectasis, left pleural effusion and a small right effusion is now apparent. 2. Right arm PICC line has tip in the high right atrium. Dictated by: Dictated on workstation # [id number]
--- NOTE | 2017-04-13 08:53 | Progress Note (SOAP) ---
Subjective Date Seen by Provider: Apr 13, 2017 Time Seen by Provider: 08:50 Subjective/Events-last exam pt reports that she is feeling better today - is wanting to eat. she reports that her abdominal pain has improved. she denies any chest pain, shortness of breath, nausea. Review of Systems General: Fatigue HEENT: No Head Aches Pulmonary: No Dyspnea, No Cough Cardiovascular: No: Chest Pain Gastrointestinal: Abdominal Pain, No: Nausea Genitourinary: Other (gandhi) Neurological: Weakness Objective Exam Vital Signs Date Time Temp Pulse Resp B/P (MAP) Pulse Ox O2 Delivery O2 Flow Rate FiO2 04/13/17 07:48 96 Nasal Cannula 1.00 04/13/17 04:00 98.0 86 20 175/82 94 Nasal Cannula 2.00 04/12/17 23:35 97.7 94 22 168/67 97 Nasal Cannula 2.00 04/12/17 20:15 97 Nasal Cannula 2.00 04/12/17 19:35 98.7 106 18 146/70 98 Nasal Cannula 2.00 04/12/17 19:04 93 Nasal Cannula 1.00 04/12/17 15:35 97.8 98 18 170/70 98 Nasal Cannula 2.00 04/12/17 15:23 97 Nasal Cannula 2.00 04/12/17 12:00 98.3 109 20 160/74 96 Nasal Cannula 2.00 04/12/17 10:18 97 Nasal Cannula 2.00 I & O 04/13/17 07:00 Intake Total 2110 ml Output Total 1450 ml Balance 660 ml Capillary Refill : Less Than 3 Seconds General Appearance: No Apparent Distress, WD/WN HEENT: PERRL/EOMI, Pharynx Normal Neck: Full Range of Motion, Supple Respiratory: Chest Non Tender, Decreased Breath Sounds Cardiovascular: Regular Rate, Rhythm Gastrointestinal: normal bowel sounds, non tender, soft, no organomegaly, no pulsatile mass Extremity: Normal Capillary Refill, No Pedal Edema Neurologic/Psychiatric: Alert, Oriented x3, No Motor/Sensory Deficits, Other ( flat affect) Skin: Warm/Dry Lymphatic: No Adenopathy Results Lab Laboratory Tests 04/12/17 15:50: Hemoglobin 10.8L, Hematocrit 34L 04/12/17 19:00: Urine Color YELLOW, Urine Clarity CLEAR, Urine pH 5, Urine Specific [place] 1.015L, Urine Protein 2+H, Urine Glucose (UA) NEGATIVE, Urine Ketones NEGATIVE, Urine Nitrite NEGATIVE, Urine Bilirubin NEGATIVE, Urine Urobilinogen NORMAL, Urine Leukocyte Esterase 3+H, Urine RBC (Auto) NEGATIVE, Urine RBC NONE, Urine WBC 0-2, Urine Crystals NONE, Urine Bacteria NEGATIVE, Urine Casts NONE, Urine Mucus NEGATIVE, Urine Yeast LARGEH, Urine Culture Indicated YES 04/13/17 06:15: Hemoglobin 9.5L, Hematocrit 30L, White Blood Count 13.0H, Red Blood Count 3.18L , Mean Corpuscular Volume 93, Mean Corpuscular Hemoglobin 30, Mean Corpuscular Hemoglobin Concent 32, Red Cell Distribution Width 18.2H, Platelet Count 141, Mean Platelet Volume 10.6H, Neutrophils (%) (Auto) 82H, Lymphocytes (%) (Auto) 9L, Monocytes (%) (Auto) 7, Eosinophils (%) (Auto) 2, Basophils (%) (Auto) 0, Neutrophils # (Auto) 10.6H, Lymphocytes # (Auto) 1.1, Monocytes # (Auto) 0.9, Eosinophils # (Auto) 0.3, Basophils # (Auto) 0.0, Sodium Level 143, Potassium Level 3.4L, Chloride Level 118H, Carbon Dioxide Level 16L, Anion Gap 9, Blood Urea Nitrogen 41H, Creatinine 1.73H, Estimat Glomerular Filtration Rate 28, BUN/ Creatinine Ratio 24, Glucose Level 120H, Calcium Level 7.7L, Phosphorus Level 2.7, Magnesium Level 1.7L 04/13/17 08:12: Microbiology 04/09/17 Blood Culture - Preliminary, Resulted No growth 04/09/17 Urine Culture - Final, Complete Klebsiella Pneumoniae Assessment/Plan Assessment/Plan Assess & Plan/Chief Complaint ACUTE GASTROINTESTINAL BLEED SEVERE ANEMIA PNEUMONIA HYPERTENSION WEAKNESS DEPRESSION CONSTIPATION ACUTE GASTROINTESTINAL BLEED - DEFER TO DR. DIOP - - HGB STABLE POST TRANSFUSION- PT ON PROTONIX, OCTREOTIDE, MONITOR H AND H SEVERE ANEMIA - STABILIZED -TRANSFUSE PRN - MONITOR HEMOGLOBIN, WAITING ON ANEMIA ANALYZER - MAY NEED TO CONSIDER ERYTHROPOIETIN PNEUMONIA - PT ON IV ANTIBIOTICS - CONTINUE WITH ZOSYN, GIVE VANCOMYCIN AND MONITOR SERIAL CHEST XRAYS. HYPERTENSION - CHRONIC -WILL RESTART HOME MEDICATIONS TODAY PT IS TAKING PO TODAY. WEAKNESS - WILL START PHYSICAL THERAPY TODAY. DEPRESSION -RESTART CELEXA. CONSTIPATION - - MONITOR OUTPUT, PT RECENTLY HAD CDIFF, NEED TO START ON PROBIOTIC TODAY DVT PROPHYLAXIS - WILL USE SCD'S, BUT WILL NOT GIVE LOVENOX DUE TO HER GI BLEEDING Clinical Quality Measures DVT/VTE Risk/Contraindication: Risk Factor Score Per Nursin RFS Level Per Nursing on Admit: 3=High ADITHYA DORADO MD Apr 13, 2017 08:53
--- NOTE | 2017-04-13 09:06 | Progress Note ---
Subjective Time Seen by Provider: 08:40 Subjective/Events-last exam Patient is up and eating. Aroused. Has more color to her face. Reports that she is feeling better. Objective Exam Vital Signs Date Time Temp Pulse Resp B/P (MAP) Pulse Ox O2 Delivery O2 Flow Rate FiO2 04/13/17 07:48 96 Nasal Cannula 1.00 04/13/17 04:00 98.0 86 20 175/82 94 Nasal Cannula 2.00 04/12/17 23:35 97.7 94 22 168/67 97 Nasal Cannula 2.00 04/12/17 20:15 97 Nasal Cannula 2.00 04/12/17 19:35 98.7 106 18 146/70 98 Nasal Cannula 2.00 04/12/17 19:04 93 Nasal Cannula 1.00 04/12/17 15:35 97.8 98 18 170/70 98 Nasal Cannula 2.00 04/12/17 15:23 97 Nasal Cannula 2.00 04/12/17 12:00 98.3 109 20 160/74 96 Nasal Cannula 2.00 04/12/17 10:18 97 Nasal Cannula 2.00 I & O 04/13/17 07:00 Intake Total 2110 ml Output Total 1450 ml Balance 660 ml Capillary Refill : Less Than 3 Seconds General Appearance: WD/WN, Thin HEENT: PERRL/EOMI Neck: Supple Respiratory: Chest Non Tender, No Accessory Muscle Use, No Respiratory Distress Cardiovascular: Regular Rate, Rhythm Gastrointestinal: non tender, soft, other (13 X 13 CM HEMATOMA RIGHT MID TO LOWER QUADRANT) Extremity: No Pedal Edema Neurologic/Psychiatric: Alert, Oriented x3, No Motor/Sensory Deficits, Other ( FLAT AFFECT) Skin: Warm/Dry, Pallor Lymphatic: No Adenopathy Results Lab Laboratory Tests Test 04/11/17 15:01 04/11/17 20:45 04/12/17 03:45 04/12/17 07:01 Range/Units Lab Scanned Report Transfusion Reaction Form [id number] Hemoglobin 10.3 #L 10.3 L 11.5-16.0 G/DL Hematocrit 32 L 32 L 35-52 % White Blood Count 14.9 H 4.3-11.0 10^3/uL Red Blood Count 3.40 L 4.35-5.85 10^6/uL Mean Corpuscular Volume 93 80-99 FL Mean Corpuscular Hemoglobin 30 25-34 PG Mean Corpuscular Hemoglobin Concent 33 32-36 G/DL Red Cell Distribution Width 18.5 H 10.0-14.5 % Platelet Count 80 L 130-400 10^3/uL Mean Platelet Volume 11.8 H 7.4-10.4 FL Neutrophils (%) (Auto) 84 H 42-75 % Lymphocytes (%) (Auto) 8 L 12-44 % Monocytes (%) (Auto) 7 0-12 % Eosinophils (%) (Auto) 1 0-10 % Basophils (%) (Auto) 1 0-10 % Neutrophils # (Auto) 12.5 H 1.8-7.8 X 10^3 Lymphocytes # (Auto) 1.2 1.0-4.0 X 10^3 Monocytes # (Auto) 1.1 H 0.0-1.0 X 10^3 Eosinophils # (Auto) 0.1 0.0-0.3 10^3/uL Basophils # (Auto) 0.1 0.0-0.1 10^3/uL Neutrophils % (Manual) 78 % Lymphocytes % (Manual) 13 % Monocytes % (Manual) 8 % Eosinophils % (Manual) 1 % Basophils % (Manual) 0 % Band Neutrophils 0 % Toxic Granulation 1+ Poikilocytosis SLIGHT Crenated Cell SLIGHT Sodium Level 145 135-145 MMOL/L Potassium Level 4.4 3.6-5.0 MMOL/L Chloride Level 120 H 98-107 MMOL/L Carbon Dioxide Level 14 L 21-32 MMOL/L Anion Gap 11 5-14 MMOL/L Blood Urea Nitrogen 61 H 7-18 MG/DL Creatinine 2.18 H 0.60-1.30 MG/DL Estimat Glomerular Filtration Rate 21 BUN/Creatinine Ratio 28 Glucose Level 139 H 70-105 MG/DL Calcium Level 8.2 L 8.5-10.1 MG/DL Phosphorus Level 3.8 2.3-4.7 MG/DL Magnesium Level 2.3 1.8-2.4 MG/DL Lactic Acid Level 0.94 0.50-2.00 MMOL/L Test 04/12/17 15:50 04/12/17 19:00 04/13/17 06:15 04/13/17 08:12 Range/Units Hemoglobin 10.8 L 9.5 L 11.5-16.0 G/DL Hematocrit 34 L 30 L 35-52 % Urine Color YELLOW Urine Clarity CLEAR Urine pH 5 5-9 Urine Specific [place] 1.015 L 1.016-1.022 Urine Protein 2+ H NEGATIVE Urine Glucose (UA) NEGATIVE NEGATIVE Urine Ketones NEGATIVE NEGATIVE Urine Nitrite NEGATIVE NEGATIVE Urine Bilirubin NEGATIVE NEGATIVE Urine Urobilinogen NORMAL NORMAL MG/DL Urine Leukocyte Esterase 3+ H NEGATIVE Urine RBC (Auto) NEGATIVE NEGATIVE Urine RBC NONE /HPF Urine WBC 0-2 /HPF Urine Crystals NONE /LPF Urine Bacteria NEGATIVE /HPF Urine Casts NONE /LPF Urine Mucus NEGATIVE /LPF Urine Yeast LARGE H /HPF Urine Culture Indicated YES White Blood Count 13.0 H 4.3-11.0 10^3/uL Red Blood Count 3.18 L 4.35-5.85 10^6/uL Mean Corpuscular Volume 93 80-99 FL Mean Corpuscular Hemoglobin 30 25-34 PG Mean Corpuscular Hemoglobin Concent 32 32-36 G/DL Red Cell Distribution Width 18.2 H 10.0-14.5 % Platelet Count 141 130-400 10^3/uL Mean Platelet Volume 10.6 H 7.4-10.4 FL Neutrophils (%) (Auto) 82 H 42-75 % Lymphocytes (%) (Auto) 9 L 12-44 % Monocytes (%) (Auto) 7 0-12 % Eosinophils (%) (Auto) 2 0-10 % Basophils (%) (Auto) 0 0-10 % Neutrophils # (Auto) 10.6 H 1.8-7.8 X 10^3 Lymphocytes # (Auto) 1.1 1.0-4.0 X 10^3 Monocytes # (Auto) 0.9 0.0-1.0 X 10^3 Eosinophils # (Auto) 0.3 0.0-0.3 10^3/uL Basophils # (Auto) 0.0 0.0-0.1 10^3/uL Sodium Level 143 135-145 MMOL/L Potassium Level 3.4 L 3.6-5.0 MMOL/L Chloride Level 118 H 98-107 MMOL/L Carbon Dioxide Level 16 L 21-32 MMOL/L Anion Gap 9 5-14 MMOL/L Blood Urea Nitrogen 41 H 7-18 MG/DL Creatinine 1.73 H 0.60-1.30 MG/DL Estimat Glomerular Filtration Rate 28 BUN/Creatinine Ratio 24 Glucose Level 120 H 70-105 MG/DL Calcium Level 7.7 L 8.5-10.1 MG/DL Phosphorus Level 2.7 2.3-4.7 MG/DL Magnesium Level 1.7 L 1.8-2.4 MG/DL Laboratory Tests 04/12/17 15:50: Hemoglobin 10.8L, Hematocrit 34L 04/12/17 19:00: Urine Color YELLOW, Urine Clarity CLEAR, Urine pH 5, Urine Specific [place] 1.015L, Urine Protein 2+H, Urine Glucose (UA) NEGATIVE, Urine Ketones NEGATIVE, Urine Nitrite NEGATIVE, Urine Bilirubin NEGATIVE, Urine Urobilinogen NORMAL, Urine Leukocyte Esterase 3+H, Urine RBC (Auto) NEGATIVE, Urine RBC NONE, Urine WBC 0-2, Urine Crystals NONE, Urine Bacteria NEGATIVE, Urine Casts NONE, Urine Mucus NEGATIVE, Urine Yeast LARGEH, Urine Culture Indicated YES 04/13/17 06:15: Hemoglobin 9.5L, Hematocrit 30L, White Blood Count 13.0H, Red Blood Count 3.18L , Mean Corpuscular Volume 93, Mean Corpuscular Hemoglobin 30, Mean Corpuscular Hemoglobin Concent 32, Red Cell Distribution Width 18.2H, Platelet Count 141, Mean Platelet Volume 10.6H, Neutrophils (%) (Auto) 82H, Lymphocytes (%) (Auto) 9L, Monocytes (%) (Auto) 7, Eosinophils (%) (Auto) 2, Basophils (%) (Auto) 0, Neutrophils # (Auto) 10.6H, Lymphocytes # (Auto) 1.1, Monocytes # (Auto) 0.9, Eosinophils # (Auto) 0.3, Basophils # (Auto) 0.0, Sodium Level 143, Potassium Level 3.4L, Chloride Level 118H, Carbon Dioxide Level 16L, Anion Gap 9, Blood Urea Nitrogen 41H, Creatinine 1.73H, Estimat Glomerular Filtration Rate 28, BUN/ Creatinine Ratio 24, Glucose Level 120H, Calcium Level 7.7L, Phosphorus Level 2.7, Magnesium Level 1.7L 04/13/17 08:12: Microbiology 04/09/17 Blood Culture - Preliminary, Resulted No growth 04/09/17 Urine Culture - Final, Complete Klebsiella Pneumoniae Assessment/Plan Assessment/Plan Assessment/Plan gi bleed-upper with hematemesis. H&H 9.5 and 30. RN reports that patient has not had a BM this am. No N/V. Ordered H&H Q 12. acute diverticulitis UTI duodenal ulcer 3 punctate areas of bleeding s/p epi injections hematoma abdominal ruq from recent cholecystectomy anemia secondary to gi bleed. iv abx for diverticulitis and UTI protonix 40 mg IV BID IV fluids Sips of clears and slowly advance diet as tolerated. Transfuse PRBC as needed. Mian- Patient sitting in chair feeling better. Tolerating clears. Slight drop in hgb compared to yesterday. No fever sweats chills shortness of breath or chest pain. general no acute distress heart reg lungs nonlabored abdomen soft ruq hematoma unchanged ext nontender assessment as above, follow hgb keep on clears will follow Clinical Quality Measures DVT/VTE Risk/Contraindication: Risk Factor Score Per Nursin RFS Level Per Nursing on Admit: 3=High HANNAH OLMSTEAD APRN Apr 13, 2017 09:06 ADARSH DIOP DO Apr 13, 2017 16:06
[2017-04-13] MEDS: VANCOMYCIN 1 GM/NS 250 ML IVPB IV SCH ×2 (09:38)
[2017-04-13 12:00] VITALS: BP 171/73
--- NOTE | 2017-04-13 12:27 | Physical Therapy Daily Note ---
PT Daily Note-Current Subjective "It's hard to get any rest around here, people are always waking you up." But, pt does agree to PT with encouragement. Pain Numeric Pain Scale: 0-No Pain Location: No Pain Reported Mental Status Patient Orientation: Person, Place, Time, Situation Transfers Functional [place] Measure 0=Not Assessed/NA 4=Minimal Assistance 1=Total Assistance 5=Supervision or Setup 2=Maximal Assistance 6=Modified [place] 3=Moderate Assistance 7=Complete IndependenceIRFPAI Quality Coding Scale 6 Independent with activity with or without an assistive device 5 Patient requires set up or clean up by helper. Patient completes activity by themselves 4 Supervision or touching assist (CGA). [place] provide cues , steadying assist 3 The helper provides less than half the effort to complete the activity 2 The helper provides more than half the effort to complete the activity 1 Dependent. The helper does all the effort to complete an activity 7 Patient refused to complete or attempt activity 9 The patient did not perform the activity before the current illness or injury 88 Not attempted due to Medical conditions or safety concerns Transfers (B, C, W/C) (FIM): 4 Supine to/from Sit: 4 (min assist to lift the trunk) Sit to/from Stand: 4 (CGA for safety) Gait Training Gait (FIM): 2 Distance (FIM): 7=368-81 ft Distance: 75 ft Gait Level of Assist: 4 Gait Assistive Device: FWW Slow gait, forward flexed; left knee started to buckle but pt able to self recover. Close CGA at belt. Pt up in chair after gait with oxygen in situ. Sit to stand x 3 from EOB and maintained standing 2-3 minutes at a time while yohannes care performed. Pt incont of BM. Assessment Current Status: Good Progress Increased mobility and functional activity tolerance. PT Short Term Goals Short Term Goals Transfers (B,C,W/C) (FIM): 4 PT Intermediate Goals Carrier Operator Goals PT Intermediate Goals Time Frame: Apr 18, 2017 Transfers (B,C,W/C) (FIM): 6 Gait (FIM): 6 Gait distance (FIM): 3=150 ft Gait Assistive Device: FWW PT Plan Problem List Problem List: Activity Tolerance, Functional Strength, Safety, Balance, Gait, Transfer, Bed Mobility Treatment/Plan Treatment Plan: Continue Plan of Care Treatment Plan: Bed Mobility, Education, Functional Activity Izzy, Functional Strength, Gait, Safety, Therapeutic Exercise, Transfers Treatment Duration: Apr 18, 2017 Visits Per Week: 6 Safety Risks/Education Patient Education: Safety Issues Teaching Recipient: Patient Teaching Methods: Demonstration, Discussion Response to Teaching: Reinforcement Needed Discharge Recommendations Therapy D/C Recommendations: Physical Therapy Home Care Time/GCodes Time In: 1115 Time Out: 1138 Total Billed Treatment Time: 23 Total Billed Treatment visit FA 10 GT 13 GENARO CORDON PT Apr 13, 2017 12:27
--- NOTE | 2017-04-13 12:46 | Occupational Ther Daily Note ---
OT Current Status-Daily Note Subjective Pt seen in room, up in recliner, Had just finished PT and she told OT her knee "gave out". Pain reported 0/10. Appearance Alert, cooperative Mental Status/Objective Functional [place] Measure 0=Not Assessed/NA 4=Minimal Assistance 1=Total Assistance 5=Supervision or Setup 2=Maximal Assistance 6=Modified [place] 3=Moderate Assistance 7=Complete [place] Other Treatment Pt declined ADLs but agreed to do UE exercise to strengthen arms to help with transfers and standing during ADLs. Pt did bilat UE ex with 1.25# weight 10 reps bilat, working on shoulders, elbows and forearms (only able to do 9 reps L shoulder flex). Pt was able to pear picker full water mug weighing 2#and get a drink. Pt left up in recliner, all needs met. Education OT Patient Education: Exercise program, Purpose of tx/functional activities Teaching Recipient: Patient Teaching Methods: Discussion Response to Teaching: Verbalize Understanding OT Short Term Goals Short Term Goals Time Frame: Apr 18, 2017 Eating(FIM): 4 Grooming(FIM): 4 Bathing(FIM): 3 Upper Body Dressing(FIM): 4 Lower Body Dressing(FIM): 3 Toileting(FIM): 4 Transfers (B,C,W/C) (FIM): 4 Toilet/Commode Transfer(FIM): 4 Additional Short Term Goals: 1-Demonstrate ADL Tasks, 2-Verbalize Understanding , 3-ImproveStrength/Izzy 1=Demonstrate adherence to instructed precautions during ADL tasks. 2=Patient will verbalize/demonstrate understanding of assistive devices/ modifications for ADL. 3=Patient will improve strength/tolerance for activity to enable patient to perform ADL's. OT Alf Goals Alf Goals Time Frame: May 02, 2017 Eating (FIM): 6 Grooming(FIM): 5 Bathing(FIM): 4 Upper Body Dressing(FIM): 5 Lower Body Dressing(FIM): 5 Toileting(FIM): 5 Transfers (B,C,W/C) (FIM): 6 Toilet/Commode Transfer(FIM): 6 Shower Transfer(FIM): 5 Additional Goals: 1-Demonstrate ADL Tasks, 2-Verbalize Understanding, 3- ImproveStrength/Izzy 1=Demonstrate adherence to instructed precautions during ADL tasks. 2=Patient will verbalize/demonstrate understanding of assistive devices/ modifications for ADL. 3=Patient will improve strength/tolerance for activity to enable patient to perform ADL's. OT Education/Plan Discharge Recommendations Plan/Recommendations: Continue POC Treatment Plan/Plan of Care Patient would benefit from OT for education, treatment and training to promote independence in ADL's, mobility, safety and/or upper extremity function for ADL' s. Plan of Care: ADL Retraining Treatment Duration: May 02, 2017 Visits Per Week: 5 Agreement: Yes Rehab Potential: Fair Time/GCodes Start Time: 11:40 Stop Time: 11:55 Total Time Billed (hr/min): 15 Billed Treatment Time visit, 15 minutes exercise PAIGE ROSSI OT Apr 13, 2017 12:46
[2017-04-13 15:30] VITALS: BP 178/81
[2017-04-13] MEDS ORDERED: MAGNESIUM 1 GM/100 ML IVPB 100 ML IV NR (16:15)
[2017-04-13 19:21] VITALS: BP 163/70
[2017-04-14 00:10] VITALS: BP 168/62
[2017-04-14 03:37] VITALS: BP 160/76
[2017-04-14] MEDS: LACTOBACILLUS Acidoph/Bulgar (LACTINEX/FLORANEX) TAB PO SCH (05:15)
[2017-04-14] MEDS: D5 NS 1000 ML IV SOLUTION 1,000 ML IV SCH (05:20)
[2017-04-14 05:27] LABS: BASOPHILS # (AUTO) 0.1 10^3/uL (0.0-0.1); BASOPHILS % (AUTO) 1 % (0-10); EOSINOPHILS # (AUTO) 0.5 10^3/uL (0.0-0.3); EOSINOPHILS % (AUTO) 3 % (0-10); LYMPHOCYTES # (AUTO) 1.6 X 10^3 (1.0-4.0); LYMPHOCYTES % (AUTO) 12 % (12-44); MEAN CORPUSCULAR HEMOGLOBIN 30 PG (25-34); MEAN CORPUSCULAR HGB CONC 32 G/DL (32-36); MEAN CORPUSCULAR VOLUME 93 FL (80-99); MEAN PLATELET VOLUME 11.1 FL (7.4-10.4); MONOCYTES % (AUTO) 7 % (0-12); NEUTROPHILS # (AUTO) 10.5 X 10^3 (1.8-7.8); NEUTROPHILS % (AUTO) 77 % (42-75); PLATELET COUNT 146 10^3/uL (130-400); RED BLOOD COUNT 3.38 10^6/uL (4.35-5.85); RED CELL DISTRIBUTION WIDTH 17.7 % (10.0-14.5); WHITE BLOOD COUNT 13.5 10^3/uL (4.3-11.0)
[2017-04-14 05:42] LABS: CALCIUM 7.9 MG/DL (8.5-10.1); CREATININE SERUM 1.63 MG/DL (0.60-1.30); MAGNESIUM 1.7 MG/DL (1.8-2.4); PHOSPHORUS 2.1 MG/DL (2.3-4.7); POTASSIUM 3.2 MMOL/L (3.6-5.0)
[2017-04-14] MEDS: RT-ALBUTEROL/IPRATROPIUM 3 ML (DUONEB) VIAL INH SCH (06:41)
[2017-04-14] MEDS ORDERED: TROUGH ORDER-PHARMACY XX NR (07:00)
[2017-04-14] MEDS: VANCOMYCIN 1 GM/NS 250 ML IVPB IV SCH ×2 (08:01)
[2017-04-14] MEDS: PANTOPRAZOLE 40 MG/10 ML (PROTONIX) VIAL IV SCH (08:02)
[2017-04-14] MEDS: PIPERACILLIN SODIUM/TAZOBACTAM 4.5 GM in NS (IVPB) 100 ML IV SCH (08:02)
[2017-04-14] MEDS: amLODIPine 5 MG (NORVASC) TAB PO SCH (08:03)
[2017-04-14] MEDS: meTOproloL SUCCINATE 50 MG (TOPROL XL) TAB PO SCH (08:03)
[2017-04-14] MEDS: fentaNYL INJECTION 100 MCG/2 ML AMP IV PRN (08:11)
--- NOTE | 2017-04-14 08:24 | Pulmonary Progress Note ---
Subjective Time Seen by Provider: 08:23 Subjective/Events-last exam NO complications noted. Exam Exam Vital Signs Date Time Temp Pulse Resp B/P (MAP) Pulse Ox O2 Delivery O2 Flow Rate FiO2 04/14/17 06:41 96 Nasal Cannula 1.00 04/14/17 06:41 96 04/14/17 03:37 98.0 82 18 160/76 99 Nasal Cannula 2.00 04/14/17 00:10 97.9 86 18 168/62 99 Nasal Cannula 2.00 04/13/17 19:21 98.0 80 18 163/70 98 Nasal Cannula 2.00 04/13/17 19:00 96 Nasal Cannula 1.00 04/13/17 15:30 97.4 82 16 178/81 97 Nasal Cannula 2.00 04/13/17 15:19 94 Nasal Cannula 1.00 04/13/17 12:00 98.4 66 20 171/73 98 Nasal Cannula 2.00 I & O 04/14/17 07:00 Intake Total 2900 ml Output Total 1400 ml Balance 1500 ml General Appearance: WD/WN, Thin HEENT: PERRL/EOMI Neck: Supple Respiratory: Chest Non Tender, No Accessory Muscle Use, No Respiratory Distress Cardiovascular: Regular Rate, Rhythm Capillary Refill: Less Than 3 Seconds Gastrointestinal: non tender, soft, other (13 X 13 CM HEMATOMA RIGHT MID TO LOWER QUADRANT) Extremity: No Pedal Edema Neurologic/Psychiatric: Alert, Oriented x3, No Motor/Sensory Deficits, Other ( FLAT AFFECT) Skin: Warm/Dry, Pallor Lymphatic: No Adenopathy Results Lab Laboratory Tests 04/12/17 15:50 04/13/17 06:15 04/13/17 17:56 04/14/17 05:15 Assessment/Plan Assessment/Plan Acute upper GIB -S/P EGD and transfusion 2units - protonix to BID 40mg IV -SCDs for DVT ppx -monitor H&H Small L>R pleural effusion -Hep lock IVF -monitor HCAP multifocal with atelectasis -Zosyn vancomycin -repan culture pending -SVNS -Add IS Debility/dementia -PT/OT Metabolic acidosis -monitor -IVF labs and radiology reviewed. 232 Clinical Quality Measures DVT/VTE Risk/Contraindication: Risk Factor Score Per Nursin RFS Level Per Nursing on Admit: 3=High JACK DEGROOT DO Apr 14, 2017 08:24
--- NOTE | 2017-04-14 08:53 | Progress Note ---
Subjective Time Seen by Provider: 08:48 Subjective/Events-last exam Patient resting in bed. Even respirations. No distress. Patient reports that she is feeling better. Objective Exam Vital Signs Date Time Temp Pulse Resp B/P (MAP) Pulse Ox O2 Delivery O2 Flow Rate FiO2 04/14/17 08:36 96 Nasal Cannula 2.00 04/14/17 06:41 96 Nasal Cannula 1.00 04/14/17 06:41 96 04/14/17 03:37 98.0 82 18 160/76 99 Nasal Cannula 2.00 04/14/17 00:10 97.9 86 18 168/62 99 Nasal Cannula 2.00 04/13/17 19:21 98.0 80 18 163/70 98 Nasal Cannula 2.00 04/13/17 19:00 96 Nasal Cannula 1.00 04/13/17 15:30 97.4 82 16 178/81 97 Nasal Cannula 2.00 04/13/17 15:19 94 Nasal Cannula 1.00 04/13/17 12:00 98.4 66 20 171/73 98 Nasal Cannula 2.00 I & O 04/14/17 07:00 Intake Total 2900 ml Output Total 1400 ml Balance 1500 ml Capillary Refill : Less Than 3 Seconds General Appearance: WD/WN, Thin HEENT: PERRL/EOMI Neck: Supple Respiratory: Chest Non Tender, No Accessory Muscle Use, No Respiratory Distress Cardiovascular: Regular Rate, Rhythm Gastrointestinal: non tender, soft, other (13 X 13 CM HEMATOMA RIGHT MID TO LOWER QUADRANT) Extremity: Non Tender, No Calf Tenderness, No Pedal Edema Neurologic/Psychiatric: Alert, Oriented x3, No Motor/Sensory Deficits, Other ( FLAT AFFECT) Skin: Warm/Dry, Pallor Lymphatic: No Adenopathy Results Lab Laboratory Tests Test 04/12/17 15:50 04/12/17 19:00 04/13/17 06:15 04/13/17 08:12 Range/Units Hemoglobin 10.8 L 9.5 L 11.5-16.0 G/DL Hematocrit 34 L 30 L 35-52 % Urine Color YELLOW Urine Clarity CLEAR Urine pH 5 5-9 Urine Specific [place] 1.015 L 1.016-1.022 Urine Protein 2+ H NEGATIVE Urine Glucose (UA) NEGATIVE NEGATIVE Urine Ketones NEGATIVE NEGATIVE Urine Nitrite NEGATIVE NEGATIVE Urine Bilirubin NEGATIVE NEGATIVE Urine Urobilinogen NORMAL NORMAL MG/DL Urine Leukocyte Esterase 3+ H NEGATIVE Urine RBC (Auto) NEGATIVE NEGATIVE Urine RBC NONE /HPF Urine WBC 0-2 /HPF Urine Crystals NONE /LPF Urine Bacteria NEGATIVE /HPF Urine Casts NONE /LPF Urine Mucus NEGATIVE /LPF Urine Yeast LARGE H /HPF Urine Culture Indicated YES White Blood Count 13.0 H 4.3-11.0 10^3/uL Red Blood Count 3.18 L 4.35-5.85 10^6/uL Mean Corpuscular Volume 93 80-99 FL Mean Corpuscular Hemoglobin 30 25-34 PG Mean Corpuscular Hemoglobin Concent 32 32-36 G/DL Red Cell Distribution Width 18.2 H 10.0-14.5 % Platelet Count 141 130-400 10^3/uL Mean Platelet Volume 10.6 H 7.4-10.4 FL Neutrophils (%) (Auto) 82 H 42-75 % Lymphocytes (%) (Auto) 9 L 12-44 % Monocytes (%) (Auto) 7 0-12 % Eosinophils (%) (Auto) 2 0-10 % Basophils (%) (Auto) 0 0-10 % Neutrophils # (Auto) 10.6 H 1.8-7.8 X 10^3 Lymphocytes # (Auto) 1.1 1.0-4.0 X 10^3 Monocytes # (Auto) 0.9 0.0-1.0 X 10^3 Eosinophils # (Auto) 0.3 0.0-0.3 10^3/uL Basophils # (Auto) 0.0 0.0-0.1 10^3/uL Sodium Level 143 135-145 MMOL/L Potassium Level 3.4 L 3.6-5.0 MMOL/L Chloride Level 118 H 98-107 MMOL/L Carbon Dioxide Level 16 L 21-32 MMOL/L Anion Gap 9 5-14 MMOL/L Blood Urea Nitrogen 41 H 7-18 MG/DL Creatinine 1.73 H 0.60-1.30 MG/DL Estimat Glomerular Filtration Rate 28 BUN/Creatinine Ratio 24 Glucose Level 120 H 70-105 MG/DL Calcium Level 7.7 L 8.5-10.1 MG/DL Phosphorus Level 2.7 2.3-4.7 MG/DL Magnesium Level 1.7 L 1.8-2.4 MG/DL Vancomycin Level Trough 15.2 10.0-20.0 UG/ML Test 04/13/17 17:56 04/14/17 05:15 04/14/17 06:59 Range/Units Hemoglobin 9.6 L 10.1 L 11.5-16.0 G/DL Hematocrit 30 L 31 L 35-52 % White Blood Count 13.5 H 4.3-11.0 10^3/uL Red Blood Count 3.38 L 4.35-5.85 10^6/uL Mean Corpuscular Volume 93 80-99 FL Mean Corpuscular Hemoglobin 30 25-34 PG Mean Corpuscular Hemoglobin Concent 32 32-36 G/DL Red Cell Distribution Width 17.7 H 10.0-14.5 % Platelet Count 146 130-400 10^3/uL Mean Platelet Volume 11.1 H 7.4-10.4 FL Neutrophils (%) (Auto) 77 H 42-75 % Lymphocytes (%) (Auto) 12 12-44 % Monocytes (%) (Auto) 7 0-12 % Eosinophils (%) (Auto) 3 0-10 % Basophils (%) (Auto) 1 0-10 % Neutrophils # (Auto) 10.5 H 1.8-7.8 X 10^3 Lymphocytes # (Auto) 1.6 1.0-4.0 X 10^3 Monocytes # (Auto) 1.0 0.0-1.0 X 10^3 Eosinophils # (Auto) 0.5 H 0.0-0.3 10^3/uL Basophils # (Auto) 0.1 0.0-0.1 10^3/uL Sodium Level 141 135-145 MMOL/L Potassium Level 3.2 L 3.6-5.0 MMOL/L Chloride Level 116 H 98-107 MMOL/L Carbon Dioxide Level 17 L 21-32 MMOL/L Anion Gap 8 5-14 MMOL/L Blood Urea Nitrogen 29 H 7-18 MG/DL Creatinine 1.63 H 0.60-1.30 MG/DL Estimat Glomerular Filtration Rate 30 BUN/Creatinine Ratio 18 Glucose Level 105 70-105 MG/DL Calcium Level 7.9 L 8.5-10.1 MG/DL Phosphorus Level 2.1 L 2.3-4.7 MG/DL Magnesium Level 1.7 L 1.8-2.4 MG/DL Vancomycin Level Trough 21.0 H 10.0-20.0 UG/ML Laboratory Tests 04/13/17 17:56: Hemoglobin 9.6L, Hematocrit 30L 04/14/17 05:15: Hemoglobin 10.1L, Hematocrit 31L, White Blood Count 13.5H, Red Blood Count 3.38L , Mean Corpuscular Volume 93, Mean Corpuscular Hemoglobin 30, Mean Corpuscular Hemoglobin Concent 32, Red Cell Distribution Width 17.7H, Platelet Count 146, Mean Platelet Volume 11.1H, Neutrophils (%) (Auto) 77H, Lymphocytes (%) (Auto) 12, Monocytes (%) (Auto) 7, Eosinophils (%) (Auto) 3, Basophils (%) (Auto) 1, Neutrophils # (Auto) 10.5H, Lymphocytes # (Auto) 1.6, Monocytes # (Auto) 1.0, Eosinophils # (Auto) 0.5H, Basophils # (Auto) 0.1, Sodium Level 141, Potassium Level 3.2L, Chloride Level 116H, Carbon Dioxide Level 17L, Anion Gap 8, Blood Urea Nitrogen 29H, Creatinine 1.63H, Estimat Glomerular Filtration Rate 30, BUN/ Creatinine Ratio 18, Glucose Level 105, Calcium Level 7.9L, Phosphorus Level 2.1L, Magnesium Level 1.7L 04/14/17 06:59: Vancomycin Level Trough 21.0H Microbiology 04/12/17 Blood Culture - Preliminary, Resulted No growth 04/12/17 Urine Culture - Preliminary, Resulted Yeast Species Assessment/Plan Assessment/Plan Assessment/Plan gi bleed-upper with hematemesis. H&H 10.1 and 31.Patient reports that she had a small BM yesterday that was dark. No N/V. acute diverticulitis UTI duodenal ulcer 3 punctate areas of bleeding s/p epi injections hematoma abdominal ruq from recent cholecystectomy anemia secondary to gi bleed. iv abx for diverticulitis and UTI protonix 40 mg IV BID, with Carafate 1gm QID IV fluids Advance diet to soft. Transfuse PRBC as needed. D/C gandhi. Diop- Patient feeling better. Dark stools. Hgb stable at 10.1 tolerating liquids. No n/v fever sweats chills shortness of breath or chest pain Pathology results duodenum regenerative changes adjacent ulcer, no h pylori, mild reactive gastropathy general no acute distress heart reg lungs nonlabored abdomen soft, hematoma ruq, no guarding or rebounding ext nontender normal mood alert assessment as above- protonix, carafate, advance diet to soft and would keep on soft if hgb remains stable could be dc'd from surgical standpoint. Clinical Quality Measures DVT/VTE Risk/Contraindication: Risk Factor Score Per Nursin RFS Level Per Nursing on Admit: 3=High HANNAH OLMSTEAD APRN Apr 14, 2017 08:53 ADARSH DIOP DO Apr 14, 2017 12:51
--- NOTE | 2017-04-14 09:07 | Discharge Summary ---
Diagnosis/Chief Complaint Date of Admission Apr 09, 2017 at 18:00 Date of Discharge Discharge Date: Apr 14, 2017 Discharge Time: 904 Admission Diagnosis Admission Diagnosis ACUTE GASTROINTESTINAL BLEED SEVERE ANEMIA PNEUMONIA HYPERTENSION WEAKNESS DEPRESSION CONSTIPATION Discharge Diagnosis ACUTE GASTROINTESTINAL BLEED SEVERE ANEMIA PNEUMONIA HYPERTENSION WEAKNESS DEPRESSION CONSTIPATION Reason Hospital Visit PT IS AN 86 Y/O FEMALE WHO IS WELL KNOWN TO ME FROM CLINIC. SHE PRESENTED TO THE HOSPITAL AFTER HAVING WEAKNESS AND ABDOMINAL PAIN AND THEN AN EPISODE OF BLOODY EMESIS. PER STAFF, THEY DAY BEFORE SHE HAD NAUSEA WITH CONSTIPATION, WAS GIVEN AN ENEMA WITH POOR OUTCOME, THEN THE NEXT DAY HAD THE BLOODY EMESIS. SHE WAS FOUND TO HAVE BLOODY EMESIS IN THE EMERGENCY DEPARTMENT. SHE REPORTS THAT SHE HAS BEEN FEELING POORLY FOR A FEW DAYS PRIOR TO HOSPITALIZATION. ABOUT A MONTH AGO SHE WAS HOSPITALIZED WITH ACUTE CHOLECYSTITIS AND CHOLECYSTECTOMY. SHE WAS IN THE ICU FOR SEVERAL DAYS DUE TO ANEMIA, ACUTE ON CHRONIC RENAL FAILURE AND DEVELOPED CDIFF INFECTION - SHE WAS THEN DISCHARGED TO THE LONG-TERM FOR STRENGTHENING. Discharge Summary Discharge Physical Examination Allergies: Coded Allergies: codeine (Verified Allergy, Unknown, 12/18/08) morphine (Verified Allergy, Unknown, 12/18/08) prednisone (Unverified Allergy, Unknown, 03/19/14) propoxyphene napsylate (Unverified Allergy, Unknown, 03/19/14) sulfamethoxazole (Verified Allergy, Unknown, 12/18/08) trimethoprim (Verified Allergy, Unknown, 12/18/08) Vitals & I&Os Vital Signs Date Time Temp Pulse Resp B/P (MAP) Pulse Ox O2 Delivery O2 Flow Rate FiO2 04/14/17 08:36 96 Nasal Cannula 2.00 04/14/17 03:37 98.0 82 18 160/76 General Appearance: Alert, No Acute Distress HEENT: Atraumatic, PERRLA Respiratory: Normal Air Movement, Other (crackles in bases bilaterally) Cardiovascular: Regular Rate Abdominal: Normal Bowel Sounds, Soft, Other (ttp over right mid abdomen) Extremities: No Tenderness/Swelling Skin: No Rashes, Other (sacral ulcer: 0.7 0.5 x 0.2 cm, 100% slough, moderate serous drainage.) Neuro: Strength at 5/5 X4 Ext, Cranial Nerves 3-12 NL Psych/Mental Status: Mental Status NL, Mood NL Hospital Course ACUTE GASTROINTESTINAL BLEED SEVERE ANEMIA PNEUMONIA HYPERTENSION WEAKNESS DEPRESSION CONSTIPATION ACUTE GASTROINTESTINAL BLEED - DEFER TO DR. DIOP - REPEAT EGD SHOWED - HGB STABLE POST TRANSFUSION - PT ON PROTONIX, OCTREOTIDE, MONITOR H AND H SEVERE ANEMIA - STABILIZED -TRANSFUSE PRN - MONITOR HEMOGLOBIN, WAITING ON ANEMIA ANALYZER - MAY NEED TO CONSIDER ERYTHROPOIETIN PNEUMONIA - PT ON IV ANTIBIOTICS - CONTINUE WITH ZOSYN, GIVE VANCOMYCIN AND MONITOR SERIAL CHEST XRAYS. HYPERTENSION - CHRONIC -WILL RESTART HOME MEDICATIONS TODAY PT IS TAKING PO TODAY. WEAKNESS - WILL CONTINUE WITH PHYSICAL THERAPY TODAY. DEPRESSION -RESTARTED CELEXA. CONSTIPATION - - MONITOR OUTPUT, PT RECENTLY HAD CDIFF, PROBIOTIC DVT PROPHYLAXIS - WILL USE SCD'S, BUT WILL NOT GIVE LOVENOX DUE TO HER GI BLEEDING PT NEEDS CONTINUED MONITORING - CONTINUE WITH PLANS FOR SWING BED Pending Labs Laboratory Tests 04/14/17 05:15: White Blood Count 13.5, Red Blood Count 3.38, Hemoglobin 10.1, Hematocrit 31, Mean Corpuscular Volume 93, Mean Corpuscular Hemoglobin 30, Mean Corpuscular Hemoglobin Concent 32, Red Cell Distribution Width 17.7, Platelet Count 146, Mean Platelet Volume 11.1, Neutrophils (%) (Auto) 77, Lymphocytes (%) (Auto) 12 , Monocytes (%) (Auto) 7, Eosinophils (%) (Auto) 3, Basophils (%) (Auto) 1, Neutrophils # (Auto) 10.5, Lymphocytes # (Auto) 1.6, Monocytes # (Auto) 1.0, Eosinophils # (Auto) 0.5, Basophils # (Auto) 0.1, Sodium Level 141, Potassium Level 3.2, Chloride Level 116, Carbon Dioxide Level 17, Anion Gap 8, Blood Urea Nitrogen 29, Creatinine 1.63, Estimat Glomerular Filtration Rate 30, BUN/ Creatinine Ratio 18, Glucose Level 105, Calcium Level 7.9, Phosphorus Level 2.1 , Magnesium Level 1.7 04/14/17 06:59: Vancomycin Level Trough 21.0 Discharge Condition at discharge IMPROVING Instructions to patient/family Please see electonic discharge instructions given to patient. Discharge Medications Reviewed and agree with Discharge Medication list on patient's Discharge Instruction sheet Clinical Quality Measures DVT/VTE Risk/Contraindication: Risk Factor Score Per Nursin RFS Level Per Nursing on Admit: 3=High ADITHYA DORADO MD Apr 14, 2017 09:07
--- NOTE | 2017-04-14 10:43 | Diagnostic Imaging Report ---
EXAMINATION: Portable upright radiograph of the chest. INDICATION: Dyspnea. COMPARISON: 03/24/17. FINDINGS: There is a left basilar infiltrate and small to moderate effusion. Mild bilateral suprahilar infiltrates are also suggested. The heart size is minimally prominent. No pneumothorax. There is a right PICC line with the tip at the upper to mid right atrium. IMPRESSION: Slightly increased left basilar infiltrate and minimal bilateral suprahilar infiltrates. Dictated by: Dictated on workstation # [id number]
[2017-04-14] MEDS ORDERED: SUCRALFATE 1 GM (CARAFATE) TAB PO SCH (11:00)
[2017-04-14] MEDS ORDERED: VANCOMYCIN 500 MG/NS 100 ML IVPB IV SCH ×2 (20:00)
[2017-04-16] MEDS ORDERED: TROUGH ORDER-PHARMACY XX NR (19:00)
== END 2017-04-14 09:01 | disposition swing bed (61) | DRG 377 ==
LOC: EDUNIT# 16:50 → ER 16:51 → ICU 18:00 → 4TH 04-12 10:49 → ENPENDDIS 04-14 09:05
PROVIDERS: ADMIT Surgery; ATTEND Surgery
PROC: 3E1G88Z Irrigation of Upper GI using Irrigating Substance, Via Natural or Artificial Opening Endoscopic (ICD-10-PCS; 2017-04-09)
PROC: 0DB98ZX Excision of Duodenum, Via Natural or Artificial Opening Endoscopic, Diagnostic (ICD-10-PCS; 2017-04-11)
PROC: 0DB78ZX Excision of Stomach, Pylorus, Via Natural or Artificial Opening Endoscopic, Diagnostic (ICD-10-PCS; 2017-04-11)
PROC: 0W3P8ZZ Control Bleeding in Gastrointestinal Tract, Via Natural or Artificial Opening Endoscopic (ICD-10-PCS; principal; 2017-04-11 15:50)
DX: K29.71 Gastritis, unspecified, with bleeding (principal); K25.4 Chronic or unspecified gastric ulcer with hemorrhage; K26.9 Duodenal ulcer, unspecified as acute or chronic, without hemorrhage or perforation; J18.9 Pneumonia, unspecified organism; D50.0 Iron deficiency anemia secondary to blood loss (chronic); K57.92 Diverticulitis of intestine, part unspecified, without perforation or abscess without bleeding; K22.10 Ulcer of esophagus without bleeding; E87.2 Acidosis; Z66 Do not resuscitate; K91.870 Postprocedural hematoma of a digestive system organ or structure following a digestive system procedure; I12.9 Hypertensive chronic kidney disease with stage 1 through stage 4 chronic kidney disease, or unspecified chronic kidney disease; N18.9 Chronic kidney disease, unspecified; L89.150 Pressure ulcer of sacral region, unstageable; L89.619 Pressure ulcer of right heel, unspecified stage; F32.9 Major depressive disorder, single episode, unspecified; K59.00 Constipation, unspecified; I65.23 Occlusion and stenosis of bilateral carotid arteries; E78.00 Pure hypercholesterolemia, unspecified; M54.16 Radiculopathy, lumbar region; M19.91 Primary osteoarthritis, unspecified site; F41.9 Anxiety disorder, unspecified; M54.9 Dorsalgia, unspecified; R35.0 Frequency of micturition; R32 Unspecified urinary incontinence; Z99.81 Dependence on supplemental oxygen
CPT/HCPCS: 36415; 36569; 71010; 71020; 74176; 76937; 80048; 80053; 80202; 81000; 83605; 83690; 83735; 84100; 85007; 85014; 85018; 85025; 85027; 86850; 86900; 86901; 86920; 87040; 87088; 87186; 94640; 94664; 94760; 96365; 96375

== ENCOUNTER 2017-04-13 14:47 | Inpatient (IN) | payer MEDICARE, OTHER ==
[~2017-04-13] VITALS: Ht 167.6 cm; Wt 71.4 kg
[~2017-04-13 14:47] MED LIST changes: +ACET-2422 PO; +AMLO5TAB2 PO; +ASCO10006 PO; +CHOL4PAC16 PO; +CHOL500044 PO; +DIPH1TAB PO; +FURO40TA4 PO; +MAGN400T39 PO; +MULT-593 PO; +NYST15CR TP; +ONDN4T PO; +SIME80TA16 PO
[2017-04-14] MEDS ORDERED: fluCOnazole (DIFLUCAN) 100 MG TAB PO ONE (09:15)
[2017-04-14] MEDS ORDERED: fentaNYL INJECTION 100 MCG/2 ML AMP IV PRN (09:15)
[2017-04-14] MEDS ORDERED: PIPERACILLIN SODIUM/TAZOBACTAM 4.5 GM in NS (IVPB) 100 ML IV SCH (09:15)
[2017-04-14] MEDS ORDERED: MAGNESIUM 1 GM/100 ML IVPB 100 ML IV ONE (09:15)
[2017-04-14] MEDS ORDERED: ONDANSETRON 4 MG/2 ML (SDV) Z0FRAN IV PRN (09:15)
[2017-04-14] MEDS ORDERED: RT-ALBUTEROL/IPRATROPIUM 3 ML (DUONEB) VIAL INH PRN (09:30)
--- OUTSIDE RECORDS SUMMARY | 2017-04-14 09:33 | XMS REPORT | Continuity of Care Document ---
Author Author [facility] Organization [facility] Address Unknown Phone Unavailable Allergies Active Description Code Type Severity Reaction Onset Reported/Identified Relationship to Patient Clinical Status Yes codeine [id number] Drug Allergy Unknown N/A 12/18/2008 Yes morphine [id number] Drug Allergy Unknown N/A 12/18/2008 Yes sulfamethoxazole [id number] Drug Allergy Unknown N/A 12/18/2008 Yes trimethoprim [id number] Drug Allergy Unknown N/A 12/18/2008 Yes prednisone [id number] Drug Allergy Unknown N/A 03/19/2014 Yes propoxyphene napsylate [id number] Drug Allergy Unknown N/A 03/19/2014 Medications Problems Date Dx Coded Attending Type Code Diagnosis Diagnosed By 06/21/2011 Ot 272.4 HYPERLIPIDEMIA NEC/NOS 06/21/2011 Ot 388.01 PRESBYACUSIS 06/21/2011 Ot 403.90 HYPTNSV CHR KID DIS, UNSPEC, W CHR KD ST 06/21/2011 Ot 414.01 CORONARY ATHEROSCLEROSIS OF [place] CORON 06/21/2011 Ot 433.10 CAROTID ARTERY OCCLUSION [...] ST 08/20/2011 Ot 414.01 CORONARY ATHEROSCLEROSIS OF [place] CORON 08/20/2011 Ot 486 PNEUMONIA, ORGANISM NOS 08/20/2011 Ot 553.3 DIAPHRAGMATIC HERNIA 08/20/2011 Ot 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 08/20/2011 Ot 585.9 CHRONIC KIDNEY DISEASE, UNSPECIFIED 08/20/2011 Ot V64.41 LAPAROSCOPIC SURGICAL PROC CONVERTED TO 08/25/2011 Ot 112.0 THRUSH 08/25/2011 Ot 272.4 HYPERLIPIDEMIA NEC/NOS 08/25/2011 Ot 275.2 DIS MAGNESIUM METABOLISM 08/25/2011 Ot 276.8 HYPOPOTASSEMIA 08/25/2011 Ot 285.9 ANEMIA NOS 08/25/2011 Ot 311 DEPRESSIVE DISORDER NEC 08/25/2011 Ot 403.90 HYPTNSV CHR KID DIS, UNSPEC, W CHR KD ST 08/25/2011 Ot 414.01 CORONARY ATHEROSCLEROSIS OF [place] CORON 08/25/2011 Ot 486 PNEUMONIA, ORGANISM NOS [...] ST 11/12/2012 Ot 414.01 CORONARY ATHEROSCLEROSIS OF [place] CORON 11/12/2012 Ot 496 CHR AIRWAY OBSTRUCT NEC 11/12/2012 Ot 553.21 INCISIONAL HERNIA 11/12/2012 Ot 568.0 PERITONEAL [id number]-SH/INF 11/12/2012 Ot 585.9 CHRONIC KIDNEY DISEASE, UNSPECIFIED [...] 01/27/2015 Ot E888.9 04/08/2015 NEW, KEITH YoungStephen RESERVATIONS SALES SUPERVISOR-C Ot 268.9 04/08/2015 NEW, KEITH VidalStephen RESERVATIONS SALES SUPERVISOR-C Ot 285.21 04/08/2015 NEW, KEITH VidalStephen RESERVATIONS SALES SUPERVISOR-C Ot 403.10 04/08/2015 NEW, KEITH VdialStephen RESERVATIONS SALES SUPERVISOR-C Ot 585.3 04/08/2015 NEW, KEITH VidalStephen RESERVATIONS SALES SUPERVISOR-C Ot 588.0 04/08/2015 NEW, KEITH VidalStephen RESERVATIONS SALES SUPERVISOR-C Ot 790.21 04/08/2015 NEW, KEITH VidalStephen RESERVATIONS SALES SUPERVISOR-C Ot 791.0 05/06/2015 NEW, KEITH YoungStephen RESERVATIONS SALES SUPERVISOR-C Ot 268.9 05/06/2015 NEW, KEITH YoungStephen RESERVATIONS SALES SUPERVISOR-C Ot 285.21 05/06/2015 NEW, KEITH VidalStephen RESERVATIONS SALES SUPERVISOR-C Ot 403.10 05/06/2015 NEW, KEITH YoungStephen RESERVATIONS SALES SUPERVISOR-C Ot 585.3 05/06/2015 NEW, KEITH YoungStephen RESERVATIONS SALES SUPERVISOR-C Ot 588.0 05/06/2015 NEW, KEITH Vidal. RESERVATIONS SALES SUPERVISOR-C Ot 790.21 05/06/2015 NEW, KEITH Vidal. RESERVATIONS SALES SUPERVISOR-C Ot 791.0 05/31/2015 NEW, KEITH Vidal. RESERVATIONS SALES SUPERVISOR-C Ot 268.9 VITAMIN D DEFICIENCY NOS 05/31/2015 NEW, KEITH Vidal. 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 RESERVATIONS SALES SUPERVISOR-C Ot 585.3 CHRONIC KIDNEY DISEASE, STAGE III (MODER 05/31/2015 NEW, KEITH Vidal. RESERVATIONS SALES SUPERVISOR-C Ot 588.0 RENAL OSTEODYSTROPHY 05/31/2015 NEW, KEITH G. RESERVATIONS SALES SUPERVISOR-C Ot 790.21 IMPAIRED FASTING GLUCOSE 05/31/2015 NEW, KEITH VidalStephen RESERVATIONS SALES SUPERVISOR-C Ot 791.0 PROTEINURIA 07/09/2015 ESTRADA STOVER, ADITHYA A Ot 276.51 DEHYDRATION 07/09/2015 ESTRADA STOVER, ADITHYA A Ot 298.9 PSYCHOSIS NOS 07/09/2015 ESTRADA STOVER, ADITHYA A Ot 584.9 ACUTE RENAL FAILURE, UNSPECIFIED 07/09/2015 ESTRADA STVOER, ADITHYA A Ot 585.9 CHRONIC KIDNEY DISEASE, UNSPECIFIED 07/09/2015 ESTRADA STOVER, ADITHYA A Ot 599.0 URIN TRACT INFECTION NOS 07/09/2015 ESTRADA STOVER, ADITHYA A Ot 787.91 DIARRHEA 07/09/2015 ESTRADA STOVER, ADITHYA A Ot V04.81 ND FOR PROPHYLACTIC VACCIN AND INOCULATI 09/01/2015 NEW, KEITH Young. [employer]ERVATIONS SALES SUPERVISOR-C Ot D63.1 09/01/2015 NEW, KEITH G. RESERVATIONS SALES SUPERVISOR-C Ot E55.9 09/01/2015 NEW, KEITH G. RESERVATIONS SALES SUPERVISOR-C Ot E78.5 09/01/2015 NEW, KEITH G. RESERVATIONS SALES SUPERVISOR-C Ot I12.9 09/01/2015 NEW, KEITH G. RESERVATIONS SALES SUPERVISOR-C Ot N18.3 09/01/2015 NEW, KEITH G. RESERVATIONS SALES SUPERVISOR-C Ot N25.0 09/01/2015 NEW, KEITH G. RESERVATIONS SALES SUPERVISOR-C Ot R73.01 09/01/2015 NEW, KEITH G. RESERVATIONS SALES SUPERVISOR-C Ot R80.9 01/25/2016 MIHAELA ALVARADOC, ALI FACP CCDS Ot I10 01/25/2016 MIHAELA STOVER FACC, ALI FACP CCDS Ot I25.10 01/25/2016 MIHAELA STOVER FACC, ALI FACP CCDS Ot R00.2 01/25/2016 MIHAELA STOVER FACC, ALI FACP CCDS Ot R06.02 01/25/2016 MIAHELA STOVER FACC, ALI FACP CCDS Ot R94.31 02/03/2016 Ot I10 ESSENTIAL (PRIMARY) HYPERTENSION 02/03/2016 Ot I25.10 ATHSCL HEART DISEASE OF [place] CORONARY 02/03/2016 Ot R00.2 PALPITATIONS 02/03/2016 Ot R06.02 SHORTNESS OF BREATH 02/03/2016 Ot R94.31 ABNORMAL ELECTROCARDIOGRAM [ECG] [EKG] 02/11/2016 MIHAELA STOVER FACC, ALI FACP CCDS Ot I10 ESSENTIAL (PRIMARY) HYPERTENSION 02/11/2016 MIHAELA STOVER [facility], ALI FACP CCDS Ot I25.10 ATHSCL HEART DISEASE OF [place] CORONARY 02/11/2016 MIHAELA STOVER [facility], ALI FACP CCDS Ot R00.2 PALPITATIONS 02/11/2016 MIHAELA STOVER FACC, ALI FACP CCDS Ot R06.02 SHORTNESS OF BREATH 02/11/2016 MIHAELA STOVER FACC, ALI FACP CCDS Ot R94.31 ABNORMAL ELECTROCARDIOGRAM [ECG ] [EKG] 02/17/2016 MIHAELA ALVARADOC, ALI FACP CCDS Ot I10 ESSENTIAL (PRIMARY) HYPERTENSION 02/17/2016 MIHAELA ALVARADO, ALI FACP CCDS Ot I25.10 ATHSCL HEART DISEASE OF [place] CORONARY 02/17/2016 MIHAELA STOVER [facility], ALI FACP CCDS Ot R00.2 PALPITATIONS [...] FISCHER DO Ot Y92.[address] [facility] 04/01/2016 TAHIRA FISCHER DO Ot Y99.8 OTHER EXTERNAL CAUSE STATUS 04/01/2016 Ot 401.9 HYPERTENSION NOS 04/01/2016 Ot 553.20 VENTRAL HERNIA NOS 04/01/2016 Ot V72.63 PRE-PROCEDURAL LABORATORY EXAMINATION 04/01/2016 Ot V72.81 LITY-CLB-URMLPLZQX CARDIOVASCULAR 04/01/2016 Ot V74.8 SCREEN-BACTERIAL DIS NEC [...] E888.9 FALL NOS 04/01/2016 NEW, KEITH So [employer]ATIONS SALES SUPERVISOR-C Ot 268.9 VITAMIN D DEFICIENCY NOS 04/01/2016 NEWKEITH RESERVATIONS SALES SUPERVISOR-C Ot 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, BENIGN, W CHR KD ST 04/01/2016 KEITH BEAUCHAMP RESERVATIONS SALES SUPERVISOR-C Ot 585.3 CHRONIC KIDNEY DISEASE, STAGE III (MODER 04/01/2016 NEW KEITH GStephen RESERVATIONS SALES SUPERVISOR-C Ot 588.0 RENAL OSTEODYSTROPHY 04/01/2016 NEWKEITH GStephen RESERVATIONS SALES SUPERVISOR-C Ot 790.21 IMPAIRED FASTING GLUCOSE 04/01/2016 NEW KEITH GStephen RESERVATIONS SALES SUPERVISOR-C Ot 791.0 PROTEINURIA 04/01/2016 KEITH BEUACHAMP GStephen RESERVATIONS SALES SUPERVISOR-C Ot D63.1 ANEMIA IN CHRONIC KIDNEY DISEASE 04/01/2016 KEITH BEAUCHAMP RESERVATIONS SALES SUPERVISOR-C Ot E55.9 VITAMIN D DEFICIENCY, UNSPECIFIED 04/01/2016 KEITH BEAUCHAMP GStephen RESERVATIONS SALES SUPERVISOR-C Ot E78.5 HYPERLIPIDEMIA, UNSPECIFIED 04/01/2016 QUYNH KEITH So RESERVATIONS SALES SUPERVISOR-C Ot I12.9 HYPERTENSIVE CHRONIC KIDNEY DISEASE W ST 04/01/2016 QUYNH KEITH So RESERVATIONS SALES SUPERVISOR-C Ot N18.3 CHRONIC KIDNEY DISEASE, STAGE 3 (MODERAT 04/01/2016 QUYNH KEITH So RESERVATIONS SALES SUPERVISOR-C Ot N25.0 RENAL OSTEODYSTROPHY 04/01/2016 QUYNH KEITH So RESERVATIONS SALES SUPERVISOR-C Ot R73.01 IMPAIRED FASTING GLUCOSE 04/01/2016 QUYNH KEITH So RESERVATIONS SALES SUPERVISOR-C Ot R80.9 PROTEINURIA, UNSPECIFIED 04/01/2016 Ot I10 ESSENTIAL (PRIMARY) HYPERTENSION 04/01/2016 Ot I25.10 ATHSCL HEART DISEASE OF [place] CORONARY 04/01/2016 Ot R00.2 PALPITATIONS 04/01/2016 Ot R06.02 SHORTNESS OF BREATH 04/01/2016 Ot R94.31 ABNORMAL ELECTROCARDIOGRAM [ECG] [EKG] 04/01/2016 MIHAELA STOVER FACC, ALI FACP CCDS Ot I10 ESSENTIAL (PRIMARY) HYPERTENSION 04/01/2016 MIHAELA STOVER FACC, ALI FACP CCDS Ot I25.10 ATHSCL HEART DISEASE OF [place] CORONARY 04/01/2016 MIHAELA STOVER FACC, BETO FACP CCDS Ot R00.2 PALPITATIONS 04/01/2016 MIHAELA STOVER FACC, ALI FACP CCDS Ot R06.02 SHORTNESS OF BREATH 04/01/2016 MIHAELA STOVER FACC, ALI FACP CCDS Ot R94.31 ABNORMAL ELECTROCARDIOGRAM [ECG ] [EKG] 04/01/2016 MIHAELA STOVER FACC, ALI FACP CCDS Ot I10 ESSENTIAL (PRIMARY) HYPERTENSION 04/01/2016 MIHAELA STOVER FACC, ALI FACP CCDS Ot I25.10 ATHSCL HEART DISEASE OF [place] CORONARY 04/01/2016 MIHAELA STOVER FACC, BETO FACP [...] FISCHER DO Ot Y92.[address] [facility] 04/01/2016 TAHIRA FISCHER [...] V72.63 PRE-PROCEDURAL LABORATORY EXAMINATION 11/22/2016 Ot V72.81 [id number]-[id number]-TOAMZSPTE CARDIOVASCULAR 11/22/2016 Ot V74.8 SCREEN-BACTERIAL DIS NEC [...] 11/22/2016 SILVIANO SOSA MD Ot 403.10 HYPTNSV [place] KID DIS, BENIGN, W CHR KD ST [...] E888.9 FALL NOS 11/22/2016 NEW, KEITH So RESERVATIONS SALES SUPERVISOR-C Ot 268.9 VITAMIN D DEFICIENCY NOS 11/22/2016 NEWKEITH RESERVATIONS SALES SUPERVISOR-C Ot 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 11/22/2016 KEITH BEAUCHAMP RESERVATIONS SALES SUPERVISOR-C Ot 403.10 HYPTNSV [place] KID DIS, BENIGN, W CHR KD ST 11/22/2016 KEITH BEAUCHAMP RESERVATIONS SALES SUPERVISOR-C Ot 585.3 CHRONIC KIDNEY DISEASE, STAGE III (MODER 11/22/2016 NEW, KEITH So RESERVATIONS SALES SUPERVISOR-C Ot 588.0 RENAL OSTEODYSTROPHY 11/22/2016 NEWKEITH RESERVATIONS SALES SUPERVISOR-C Ot 790.21 IMPAIRED FASTING GLUCOSE 11/22/2016 KEITH BEAUCHAMP RESERVATIONS SALES SUPERVISOR-C Ot 791.0 PROTEINURIA 11/22/2016 KEITH BEAUCHAMP RESERVATIONS SALES SUPERVISOR-C Ot 268.9 VITAMIN D DEFICIENCY NOS 11/22/2016 KEITH BEAUCHAMP RESERVATIONS SALES SUPERVISOR-C Ot 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 RESERVATIONS SALES SUPERVISOR-C Ot 588.0 RENAL OSTEODYSTROPHY 11/22/2016 NEWKEITH GStephen RESERVATIONS SALES SUPERVISOR-C Ot 790.21 IMPAIRED FASTING GLUCOSE 11/22/2016 NEW KEITH G. RESERVATIONS SALES SUPERVISOR-C Ot 791.0 PROTEINURIA 11/22/2016 NEW, KEITH So RESERVATIONS SALES SUPERVISOR-C Ot D63.1 ANEMIA IN CHRONIC KIDNEY DISEASE 11/22/2016 QUYNH KEITH So RESERVATIONS SALES SUPERVISOR-C Ot E55.9 VITAMIN D DEFICIENCY, UNSPECIFIED 11/22/2016 QUYNH KEITH So RESERVATIONS SALES SUPERVISOR-C Ot E78.5 HYPERLIPIDEMIA, UNSPECIFIED 11/22/2016 NEW KEITH So RESERVATIONS SALES SUPERVISOR-C Ot I12.9 HYPERTENSIVE CHRONIC KIDNEY DISEASE W ST 11/22/2016 NEW KEITH So RESERVATIONS SALES SUPERVISOR-C Ot N18.3 CHRONIC KIDNEY DISEASE, STAGE 3 (MODERAT 11/22/2016 NEW KEITH So RESERVATIONS SALES SUPERVISOR-C Ot N25.0 RENAL OSTEODYSTROPHY 11/22/2016 QUYNH KEITH So RESERVATIONS SALES SUPERVISOR-C Ot R73.01 IMPAIRED FASTING GLUCOSE 11/22/2016 NEW KEITH So RESERVATIONS SALES SUPERVISOR-C Ot R80.9 PROTEINURIA, UNSPECIFIED 11/22/2016 Ot I10 ESSENTIAL (PRIMARY) HYPERTENSION 11/22/2016 Ot I25.10 ATHSCL HEART DISEASE OF [place] CORONARY 11/22/2016 Ot R00.2 PALPITATIONS 11/22/2016 Ot R06.02 SHORTNESS OF BREATH 11/22/2016 Ot R94.31 ABNORMAL ELECTROCARDIOGRAM [ECG] [EKG] 11/22/2016 MIHAELA STOVER FACC, BETO FACP CCDS Ot I10 ESSENTIAL (PRIMARY) HYPERTENSION 11/22/2016 MIHAELA STOVER FACC, BETO FACP CCDS Ot I25.10 ATHSCL HEART DISEASE OF [place] CORONARY 11/22/2016 MIHAELA STOVER FACC, BETO FACP CCDS Ot R00.2 PALPITATIONS 11/22/2016 MIHAELA STOVER FACC, ALI FACP CCDS Ot R06.02 SHORTNESS OF BREATH 11/22/2016 MIHAELA STOVER FACC, BETO FACP CCDS Ot R94.31 ABNORMAL ELECTROCARDIOGRAM [ECG ] [EKG] 11/22/2016 MIHAELA STOVER FACC, BETO FACP CCDS Ot I10 ESSENTIAL (PRIMARY) HYPERTENSION 11/22/2016 MIHAELA STOVER FACC, ALI FACP CCDS Ot I25.10 ATHSCL HEART DISEASE OF [place] CORONARY 11/22/2016 MIHAELA STOVER FACC, BETO FACP CCDS Ot R00.2 PALPITATIONS 11/22/2016 MIHAELA STOVER FACC, BETO FACP CCDS Ot R06.02 SHORTNESS OF BREATH 11/22/2016 MIHAELA STOVER FACC, ALI FACP CCDS Ot R94.31 ABNORMAL ELECTROCARDIOGRAM [ECG ] [EKG] 11/23/2016 MIHAELA STOVER FACC, ALI FACP CCDS Ot I10 ESSENTIAL (PRIMARY) HYPERTENSION 11/23/2016 MIHAELA STOVER FACC, ALI FACP CCDS Ot I25.10 ATHSCL HEART DISEASE OF [place] CORONARY 11/23/2016 MIHAELA STOVER FACC, ALI FACP CCDS Ot I73.9 PERIPHERAL VASCULAR DISEASE, UNSPECIFIED 12/16/2016 MIHAELA STOVER FACC, ALI FACP CCDS Ot I10 ESSENTIAL (PRIMARY) HYPERTENSION 12/16/2016 MIHAELA STOVER FACC, BETO FACP CCDS Ot I25.10 ATHSCL HEART DISEASE OF [place] CORONARY 12/16/2016 MIHAELA STOVER FACC, ALI FACP [...] V72.63 PRE-PROCEDURAL LABORATORY EXAMINATION 03/07/2017 Ot V72.81 QFWM-WZB-OHNQUAUTN CARDIOVASCULAR 03/07/2017 Ot V74.8 SCREEN-BACTERIAL DIS NEC [...] MD Ot E849.0 ACCIDENT IN HOME 03/07/2017 AIDTHYA DORADO MD Ot E888.9 FALL NOS 03/07/2017 [...] 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, BENIGN, W [place] KD ST 03/07/2017 SILVIANO SOSA MD Ot [...] 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, BENIGN, W [place] KD ST 03/07/2017 SILVIANO SOSA MD Ot [...] E888.9 FALL NOS 03/07/2017 NEW, KEITH VidalStephen RESERVATIONS SALES SUPERVISOR-C Ot 268.9 VITAMIN D DEFICIENCY NOS 03/07/2017 NEW, KEITH VidalStephen RESERVATIONS SALES SUPERVISOR-C Ot 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 03/07/2017 NEW, KEITH YoungtSephen RESERVATIONS SALES SUPERVISOR-C Ot 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, BENIGN, W CHR KD ST 03/07/2017 NEW, KEITH YoungStephen RESERVATIONS SALES SUPERVISOR-C Ot 585.3 CHRONIC KIDNEY DISEASE, STAGE III (MODER 03/07/2017 NEW, KEITH So RESERVATIONS SALES SUPERVISOR-C Ot 588.0 RENAL OSTEODYSTROPHY 03/07/2017 NEW, KEITH So RESERVATIONS SALES SUPERVISOR-C Ot 790.21 IMPAIRED FASTING GLUCOSE 03/07/2017 NEW, KEITH So RESERVATIONS SALES SUPERVISOR-C Ot 791.0 PROTEINURIA 03/07/2017 NEW, KEITH YoungStephen RESERVATIONS SALES SUPERVISOR-C Ot 268.9 VITAMIN D DEFICIENCY NOS 03/07/2017 NEW, EKITH YoungStephen RESERVATIONS SALES SUPERVISOR-C Ot 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 RESERVATIONS SALES SUPERVISOR-C Ot 791.0 PROTEINURIA 03/07/2017 NEW, KEITH GStephen RESERVATIONS SALES SUPERVISOR-C Ot D63.1 ANEMIA IN CHRONIC KIDNEY DISEASE 03/07/2017 NEW, KEITH GStephen RESERVATIONS SALES SUPERVISOR-C Ot E55.9 VITAMIN D DEFICIENCY, UNSPECIFIED 03/07/2017 NEW, KEITH G. RESERVATIONS SALES SUPERVISOR-C Ot E78.5 HYPERLIPIDEMIA, UNSPECIFIED 03/07/2017 NEW, KEITH GStephen RESERVATIONS SALES SUPERVISOR-C Ot I12.9 HYPERTENSIVE CHRONIC KIDNEY DISEASE W ST 03/07/2017 NEW, KEITH G. RESERVATIONS SALES SUPERVISOR-C Ot N18.3 CHRONIC KIDNEY DISEASE, STAGE 3 (MODERAT 03/07/2017 KEITH BEAUCHAMP RESERVATIONS SALES SUPERVISOR-C Ot N25.0 RENAL OSTEODYSTROPHY 03/07/2017 KEITH BEAUCHAMP NP-C Ot R73.01 IMPAIRED FASTING GLUCOSE 03/07/2017 KEITH BEAUCHAMP RESERVATIONS SALES SUPERVISOR-C Ot R80.9 PROTEINURIA, UNSPECIFIED 03/07/2017 Ot I10 ESSENTIAL (PRIMARY) HYPERTENSION 03/07/2017 Ot I25.10 ATHSCL HEART DISEASE OF [place] CORONARY 03/07/2017 Ot R00.2 PALPITATIONS 03/07/2017 Ot R06.02 SHORTNESS OF BREATH 03/07/2017 Ot R94.31 ABNORMAL ELECTROCARDIOGRAM [ECG] [EKG] 03/07/2017 IMHAELA STOVER FACC, BETO FACP CCDS Ot I10 ESSENTIAL (PRIMARY) HYPERTENSION 03/07/2017 MIHAELA STOVER FACC, ALI FACP CCDS Ot I25.10 ATHSCL HEART DISEASE OF [place] CORONARY 03/07/2017 MIHAELA STOVER FACC, BETO FACP CCDS Ot R00.2 PALPITATIONS 03/07/2017 MIHAELA STOVER FACC, ALI FACP CCDS Ot R06.02 SHORTNESS OF BREATH 03/07/2017 MIHAELA STOVER FACC, ALI FACP CCDS Ot R94.31 ABNORMAL ELECTROCARDIOGRAM [ECG ] [EKG] 03/07/2017 MIHAELA STOVER FACC, ALI FACP CCDS Ot I10 ESSENTIAL (PRIMARY) HYPERTENSION 03/07/2017 MIHAELA STOVER FACC, ALI FACP CCDS Ot I25.10 ATHSCL HEART DISEASE OF [place] CORONARY 03/07/2017 MIHAELA STOVER FACC, ALI FACP CCDS Ot R00.2 PALPITATIONS 03/07/2017 MIHAELA STOVER FACC, ALI FACP CCDS Ot R06.02 SHORTNESS OF BREATH 03/07/2017 MIHAELA STOVER FACC, ALI FACP CCDS Ot R94.31 ABNORMAL ELECTROCARDIOGRAM [ECG ] [EKG] 03/07/2017 MIHAELA STOVER FACC, ALI FACP CCDS Ot I10 ESSENTIAL (PRIMARY) HYPERTENSION 03/07/2017 MIHAELA STOVER FACC, ALI FACP CCDS Ot I25.10 ATHSCL HEART DISEASE OF [place] CORONARY 03/07/2017 MIHAELA STOVER FACC, ALI FACP CCDS Ot I73.9 PERIPHERAL VASCULAR DISEASE, UNSPECIFIED 03/10/2017 ADITHYA DORADO MD Ot K80.20 CALCULUS OF GALLBLADDER W/O CHOLECYSTITI 03/10/2017 ADITHYA DORADO MD Ot R19.7 DIARRHEA, UNSPECIFIED 03/13/2017 ADITHYA DORADO MD Ot K80.20 CALCULUS OF GALLBLADDER W/O CHOLECYSTITI 03/13/2017 ADITHYA DORADO MD Ot R19.7 DIARRHEA, UNSPECIFIED 03/30/2017 ADITHYA DORADO MD, Ot K80.20 CALCULUS OF GALLBLADDER W/O CHOLECYSTITI 03/30/2017 ADITHYA DORADO MD Ot R19.7 DIARRHEA, UNSPECIFIED 03/31/2017 ADITHYA DORADO MD, Ot R19.7 DIARRHEA, UNSPECIFIED 04/05/2017 ADITHYA DORADO MD Ot R19.7 DIARRHEA, UNSPECIFIED Procedures Code Description Performed By Performed On 53.72 OTH OPEN REPAIR OF DIAPHRAGMATIC HERNI 08/12/2011 53.62 LAPAROSCOPIC INCISIONAL HERNIA REPAIR W 11/08/2012 54.51 LAPAROSCOP LYSIS-PERITONEAL ADHES 11/08/2012 Results Test Result Range C DIFFICILE AG + TOXIN A/B. - 03/30/17 18:39 RESULTS NEGATIVE FOR ANTIGEN AND TOXIN A/B NRG Complete blood count (CBC) with automated white blood cell (WBC) differential - 04/09/17 17:04 Blood leukocytes automated count (number/volume) 13.3 10*3/ uL 4.3-11.0 Blood erythrocytes automated count (number/volume) 2.27 10*6 /uL 4.35-5.85 Venous blood hemoglobin measurement (mass/volume) 6.9 g/dL 11.5-16.0 Blood hematocrit (volume fraction) 23 % 35-52 Automated erythrocyte mean corpuscular volume 100 [foz_us] 80-99 Automated erythrocyte mean corpuscular hemoglobin (mass per erythrocyte) 30 pg 25-34 Automated erythrocyte mean corpuscular hemoglobin concentration measurement ( mass/volume) 30 g/dL 32-36 Automated erythrocyte distribution width ratio 17.6 % 10.0-14.5 Automated blood platelet count (count/volume) 288 10*3/uL 130-400 Automated blood platelet mean volume measurement 10.9 [foz_ us] 7.4-10.4 Automated blood neutrophils/100 leukocytes 79 % 42-75 Automated blood lymphocytes/100 leukocytes 15 % 12-44 Blood monocytes/100 leukocytes 5 % 0-12 Automated blood eosinophils/100 leukocytes 0 % 0-10 Automated blood basophils/100 leukocytes 1 % 0-10 Blood neutrophils automated count (number/volume) 10.5 10*3 1.8-7.8 Blood lymphocytes automated count (number/volume) 2.0 10*3 1.0-4.0 Blood monocytes automated count (number/volume) 0.7 10*3 0.0-1.0 Automated eosinophil count 0.1 10*3/uL 0.0-0.3 Automated blood basophil count (count/volume) 0.1 10*3/uL 0.0-0.1 Lipase - 04/09/17 17:04 Lipase 75 U/L 8-78 Comprehensive metabolic panel - 04/09/17 17:04 Serum or plasma sodium measurement (moles/volume) 137 mmol/ L 135-145 Serum or plasma potassium measurement (moles/volume) 6.7 mmol/L 3.6-5.0 Serum or plasma chloride measurement (moles/volume) 114 mmol /L 98-107 Carbon dioxide 14 mmol/L 21-32 Serum or plasma anion gap determination (moles/volume) 9 mmol/L 5-14 Serum or plasma urea nitrogen measurement (mass/volume) 59 mg/dL 7-18 Serum or plasma creatinine measurement (mass/volume) 2.28 mg /dL 0.60-1.30 Serum or plasma urea nitrogen/creatinine mass ratio 26 0-20 Serum or plasma creatinine measurement with calculation of estimated glomerular filtration rate 20 NRG Serum or plasma glucose measurement (mass/volume) 169 mg/dL 70-105 Serum or plasma calcium measurement (mass/volume) 8.2 mg/dL 8.5-10.1 Serum or plasma total bilirubin measurement (mass/volume) 0.4 mg/dL 0.1-1.0 Serum or plasma alkaline phosphatase measurement (enzymatic activity/volume) 49 U/L 40-136 Serum or plasma aspartate aminotransferase measurement (enzymatic activity/ volume) 37 U/L 5-34 Serum or plasma alanine aminotransferase measurement (enzymatic activity/volume ) 13 U/L 0-55 Serum or plasma protein measurement (mass/volume) 6.2 g/dL 6.4-8.2 Serum or plasma albumin measurement (mass/volume) 2.6 g/dL 3.2-4.5 RED CELLS LEUKO REDUCED AS1 - 04/09/17 17:47 RED CELLS LEUKO REDUCED AS1 TRANSFUSED 1917 NRG Blood type T Indirect antibody screen panel - 04/09/17 17:47 ABO+Rh group OP NRG Transfusion band number [id number] NRG Blood group antibody screen NEGATIVE NRG Bacterial blood culture - 04/09/17 18:15 Bacterial blood culture NG NRG Bacterial blood culture - 04/09/17 19:25 Bacterial blood culture NG NRG Complete urinalysis with reflex to culture - 04/09/17 22:43 Urine color determination YELLOW NRG Urine clarity determination SLIGHTLY CLOUDY NRG Urine pH measurement by test strip 5 5- 9 Specific gravity of urine by test strip 1.015 1.016-1.022 Urine protein assay by test strip, semi-quantitative 1+ NEGATIVE Urine glucose detection by automated test strip NEGATIVE NEGATIVE Erythrocytes detection in urine sediment by light microscopy NEGATIVE NEGATIVE Urine ketones detection by automated test strip NEGATIVE NEGATIVE Urine nitrite detection by test strip NEGATIVE NEGATIVE Urine total bilirubin detection by test strip NEGATIVE NEGATIVE Urine urobilinogen measurement by automated test strip (mass/volume) NORMAL NORMAL Urine leukocyte esterase detection by dipstick 3+ NEGATIVE Automated urine sediment erythrocyte count by microscopy (number/high power field) NONE NRG Automated urine sediment leukocyte count by microscopy (number/high power field ) [HPF] NRG Bacteria detection in urine sediment by light microscopy LARGE NRG Crystals detection in urine sediment by light microscopy NONE NRG Casts detection in urine sediment by light microscopy NONE NRG Mucus detection in urine sediment by light microscopy NEGATIVE NRG Complete urinalysis with reflex to culture YES NRG Bacterial urine culture - 04/09/17 22:43 Bacterial urine culture [id number] NRG COLONY COUNT >100,000/ML NRG FTX;REPORTABLE SENSITIVITY REPORTED 04/11/17 8:15 NRG Bacterial susceptibility panel - 04/09/17 22:43 Gentamicin susceptibility test by minimum inhibitory concentration <= NRG Trimethoprim/sulfamethoxazole susceptibility test by minimum inhibitoryconcentration <= NRG Ampicillin susceptibility test by minimum inhibitory concentration >= NRG Tobramycin susceptibility test by minimum inhibitory concentration <= NRG Cefazolin susceptibility test by minimum inhibitory concentration <= NRG Ceftriaxone susceptibility test by minimum inhibitory concentration <= NRG Ampicillin/sulbactam susceptibility test by minimum inhibitory concentration <= NRG Piperacillin/tazobactam susceptibility test by minimum inhibitory concentration 8 NRG Ciprofloxacin susceptibility test by minimum inhibitory concentration <= NRG Meropenem susceptibility test by minimum inhibitory concentration <= NRG Nitrofurantoin susceptibility test by minimum inhibitory concentration <= NRG Aztreonam susceptibility test by minimum inhibitory concentration <= NRG Extended spectrum beta lactamase (ESBL) producing bacteria susceptibility test by minimum inhibitory concentration - NRG Whole blood hemoglobin and hematocrit panel - 04/10/17 05:10 Venous blood hemoglobin measurement (mass/volume) 9.7 g/dL 11.5-16.0 Blood hematocrit (volume fraction) 29 % 35-52 Comprehensive metabolic panel - 04/10/17 05:10 Serum or plasma sodium measurement (moles/volume) 139 mmol/ L 135-145 Serum or plasma potassium measurement (moles/volume) 6.2 mmol/L 3.6-5.0 Serum or plasma chloride measurement (moles/volume) 113 mmol /L 98-107 Carbon dioxide 15 mmol/L 21-32 Serum or plasma anion gap determination (moles/volume) 11 mmol/L 5-14 Serum or plasma urea nitrogen measurement (mass/volume) 68 mg/dL 7-18 Serum or plasma creatinine measurement (mass/volume) 2.36 mg /dL 0.60-1.30 Serum or plasma urea nitrogen/creatinine mass ratio 29 0-20 Serum or plasma creatinine measurement with calculation of estimated glomerular filtration rate 19 NRG Serum or plasma glucose measurement (mass/volume) 145 mg/dL 70-105 Serum or plasma calcium measurement (mass/volume) 8.3 mg/dL 8.5-10.1 Serum or plasma total bilirubin measurement (mass/volume) 0.9 mg/dL 0.1-1.0 Serum or plasma alkaline phosphatase measurement (enzymatic activity/volume) 48 U/L 40-136 Serum or plasma aspartate aminotransferase measurement (enzymatic activity/ volume) 28 U/L 5-34 Serum or plasma alanine aminotransferase measurement (enzymatic activity/volume ) 12 U/L 0-55 Serum or plasma protein measurement (mass/volume) 6.5 g/dL 6.4-8.2 Serum or plasma albumin measurement (mass/volume) 2.8 g/dL 3.2-4.5 Whole blood hemoglobin and hematocrit panel - 04/10/17 13:11 Venous blood hemoglobin measurement (mass/volume) 8.1 g/dL 11.5-16.0 Blood hematocrit (volume fraction) 26 % 35-52 Whole blood hemoglobin and hematocrit panel - 04/10/17 21:08 Venous blood hemoglobin measurement (mass/volume) 7.9 g/dL 11.5-16.0 Blood hematocrit (volume fraction) 24 % 35-52 Complete blood count (CBC) with automated white blood cell (WBC) differential - 04/11/17 03:48 Blood leukocytes automated count (number/volume) 13.6 10*3/ uL 4.3-11.0 Blood erythrocytes automated count (number/volume) 2.41 10*6 /uL 4.35-5.85 Venous blood hemoglobin measurement (mass/volume) 7.3 g/dL 11.5-16.0 Blood hematocrit (volume fraction) 23 % 35-52 Automated erythrocyte mean corpuscular volume 96 [foz_us] 80-99 Automated erythrocyte mean corpuscular hemoglobin (mass per erythrocyte) 30 pg 25-34 Automated erythrocyte mean corpuscular hemoglobin concentration measurement ( mass/volume) 32 g/dL 32-36 Automated erythrocyte distribution width ratio 18.3 % 10.0-14.5 Automated blood platelet count (count/volume) 164 10*3/uL 130-400 Automated blood platelet mean volume measurement 11.1 [foz_ us] 7.4-10.4 Automated blood neutrophils/100 leukocytes 82 % 42-75 Automated blood lymphocytes/100 leukocytes 10 % 12-44 Blood monocytes/100 leukocytes 6 % 0-12 Automated blood eosinophils/100 leukocytes 1 % 0-10 Automated blood basophils/100 leukocytes 1 % 0-10 Blood neutrophils automated count (number/volume) 11.2 10*3 1.8-7.8 Blood lymphocytes automated count (number/volume) 1.3 10*3 1.0-4.0 Blood monocytes automated count (number/volume) 0.9 10*3 0.0-1.0 Automated eosinophil count 0.1 10*3/uL 0.0-0.3 Automated blood basophil count (count/volume) 0.1 10*3/uL 0.0-0.1 Whole blood basic metabolic panel - 04/11/17 03:48 Serum or plasma sodium measurement (moles/volume) 143 mmol/ L 135-145 Serum or plasma potassium measurement (moles/volume) 5.0 mmol/L 3.6-5.0 Serum or plasma chloride measurement (moles/volume) 119 mmol /L 98-107 Carbon dioxide 15 mmol/L 21-32 Serum or plasma anion gap determination (moles/volume) 9 mmol/L 5-14 Serum or plasma urea nitrogen measurement (mass/volume) 72 mg/dL 7-18 Serum or plasma creatinine measurement (mass/volume) 2.32 mg /dL 0.60-1.30 Serum or plasma urea nitrogen/creatinine mass ratio 31 0-20 Serum or plasma creatinine measurement with calculation of estimated glomerular filtration rate 20 NRG Serum or plasma glucose measurement (mass/volume) 108 mg/dL 70-105 Serum or plasma calcium measurement (mass/volume) 7.9 mg/dL 8.5-10.1 Serum or plasma phosphate measurement (mass/volume) - 04/11/17 03:48 Serum or plasma phosphate measurement (mass/volume) 3.6 mg/ dL 2.3-4.7 Magnesium - 04/11/17 03:48 Magnesium 1.7 mg/dL 1.8-2.4 Whole blood hemoglobin and hematocrit panel - 04/11/17 20:45 Venous blood hemoglobin measurement (mass/volume) 10.3 g/dL 11.5-16.0 Blood hematocrit (volume fraction) 32 % 35-52 Complete blood count (CBC) with automated white blood cell (WBC) differential - 04/12/17 03:45 Blood leukocytes automated count (number/volume) 14.9 10*3/ uL 4.3-11.0 Blood erythrocytes automated count (number/volume) 3.40 10*6 /uL 4.35-5.85 Venous blood hemoglobin measurement (mass/volume) 10.3 g/dL 11.5-16.0 Blood hematocrit (volume fraction) 32 % 35-52 Automated erythrocyte mean corpuscular volume 93 [foz_us] 80-99 Automated erythrocyte mean corpuscular hemoglobin (mass per erythrocyte) 30 pg 25-34 Automated erythrocyte mean corpuscular hemoglobin concentration measurement ( mass/volume) 33 g/dL 32-36 Automated erythrocyte distribution width ratio 18.5 % 10.0-14.5 Automated blood platelet count (count/volume) 80 10*3/uL 130-400 Automated blood platelet mean volume measurement 11.8 [foz_ us] 7.4-10.4 Automated blood neutrophils/100 leukocytes 84 % 42-75 Automated blood lymphocytes/100 leukocytes 8 % 12-44 Blood monocytes/100 leukocytes 7 % 0-12 Automated blood eosinophils/100 leukocytes 1 % 0-10 Automated blood basophils/100 leukocytes 1 % 0-10 Blood neutrophils automated count (number/volume) 12.5 10*3 1.8-7.8 Blood lymphocytes automated count (number/volume) 1.2 10*3 1.0-4.0 Blood monocytes automated count (number/volume) 1.1 10*3 0.0-1.0 Automated eosinophil count 0.1 10*3/uL 0.0-0.3 Automated blood basophil count (count/volume) 0.1 10*3/uL 0.0-0.1 Blood manual differential performed detection - 04/12/17 03:45 Blood monocytes/100 leukocytes 8 % NRG Manual blood segmented neutrophils/100 leukocytes 78 % NRG Blood band neutrophils/100 leukocytes 0 % NRG Manual blood lymphocytes/100 leukocytes 13 % NRG Manual eosinophils/100 leukocytes in nose 1 % NRG Manual blood basophils/100 leukocytes 0 % NRG Blood toxic granules detection by light microscopy 1+ NRG Blood poikilocytosis detection by light microscopy SLIGHT NRG Blood trina cells detection by light microscopy SLIGHT NRG Whole blood basic metabolic panel - 04/12/17 03:45 Serum or plasma sodium measurement (moles/volume) 145 mmol/ L 135-145 Serum or plasma potassium measurement (moles/volume) 4.4 mmol/L 3.6-5.0 Serum or plasma chloride measurement (moles/volume) 120 mmol /L 98-107 Carbon dioxide 14 mmol/L 21-32 Serum or plasma anion gap determination (moles/volume) 11 mmol/L 5-14 Serum or plasma urea nitrogen measurement (mass/volume) 61 mg/dL 7-18 Serum or plasma creatinine measurement (mass/volume) 2.18 mg /dL 0.60-1.30 Serum or plasma urea nitrogen/creatinine mass ratio 28 NRG Serum or plasma creatinine measurement with calculation of estimated glomerular filtration rate 21 NRG Serum or plasma glucose measurement (mass/volume) 139 mg/dL 70-105 Serum or plasma calcium measurement (mass/volume) 8.2 mg/dL 8.5-10.1 Serum or plasma phosphate measurement (mass/volume) - 04/12/17 03:45 Serum or plasma phosphate measurement (mass/volume) 3.8 mg/ dL 2.3-4.7 Magnesium - 04/12/17 03:45 Magnesium 2.3 mg/dL 1.8-2.4 Blood lactic acid measurement (moles/volume) - 04/12/17 07:01 Blood lactic acid measurement (moles/volume) 0.94 mmol/L 0.50-2.00 Bacterial blood culture - 04/12/17 07:01 Bacterial blood culture NG NRG Bacterial blood culture - 04/12/17 07:14 Bacterial blood culture NG NRG Bacterial blood culture - 04/12/17 07:56 Bacterial blood culture NG NRG Whole blood hemoglobin and hematocrit panel - 04/12/17 15:50 Venous blood hemoglobin measurement (mass/volume) 10.8 g/dL 11.5-16.0 Blood hematocrit (volume fraction) 34 % 35-52 Complete urinalysis with reflex to culture - 04/12/17 19:00 Urine color determination YELLOW NRG Urine clarity determination CLEAR NRG Urine pH measurement by test strip 5 5- 9 Specific gravity of urine by test strip 1.015 1.016-1.022 Urine protein assay by test strip, semi-quantitative 2+ NEGATIVE Urine glucose detection by automated test strip NEGATIVE NEGATIVE Erythrocytes detection in urine sediment by light microscopy NEGATIVE NEGATIVE Urine ketones detection by automated test strip NEGATIVE NEGATIVE Urine nitrite detection by test strip NEGATIVE NEGATIVE Urine total bilirubin detection by test strip NEGATIVE NEGATIVE Urine urobilinogen measurement by automated test strip (mass/volume) NORMAL NORMAL Urine leukocyte esterase detection by dipstick 3+ NEGATIVE Automated urine sediment erythrocyte count by microscopy (number/high power field) NONE NRG Automated urine sediment leukocyte count by microscopy (number/high power field ) [HPF] NRG Bacteria detection in urine sediment by light microscopy NEGATIVE NRG Crystals detection in urine sediment by light microscopy NONE NRG Casts detection in urine sediment by light microscopy NONE NRG Mucus detection in urine sediment by light microscopy NEGATIVE NRG Complete urinalysis with reflex to culture YES NRG Yeast detection in urine sediment by light microscopy LARGE NRG Bacterial urine culture - 04/12/17 19:00 Bacterial urine culture [id number] NRG COLONY COUNT 10,000/ML - 100,000/ML NRG Complete blood count (CBC) with automated white blood cell (WBC) differential - 04/13/17 06:15 Blood leukocytes automated count (number/volume) 13.0 10*3/ uL 4.3-11.0 Blood erythrocytes automated count (number/volume) 3.18 10*6 /uL 4.35-5.85 Venous blood hemoglobin measurement (mass/volume) 9.5 g/dL 11.5-16.0 Blood hematocrit (volume fraction) 30 % 35-52 Automated erythrocyte mean corpuscular volume 93 [foz_us] 80-99 Automated erythrocyte mean corpuscular hemoglobin (mass per erythrocyte) 30 pg 25-34 Automated erythrocyte mean corpuscular hemoglobin concentration measurement ( mass/volume) 32 g/dL 32-36 Automated erythrocyte distribution width ratio 18.2 % 10.0-14.5 Automated blood platelet count (count/volume) 141 10*3/uL 130-400 Automated blood platelet mean volume measurement 10.6 [foz_ us] 7.4-10.4 Automated blood neutrophils/100 leukocytes 82 % 42-75 Automated blood lymphocytes/100 leukocytes 9 % 12-44 Blood monocytes/100 leukocytes 7 % 0-12 Automated blood eosinophils/100 leukocytes 2 % 0-10 Automated blood basophils/100 leukocytes 0 % 0-10 Blood neutrophils automated count (number/volume) 10.6 10*3 1.8-7.8 Blood lymphocytes automated count (number/volume) 1.1 10*3 1.0-4.0 Blood monocytes automated count (number/volume) 0.9 10*3 0.0-1.0 Automated eosinophil count 0.3 10*3/uL 0.0-0.3 Automated blood basophil count (count/volume) 0.0 10*3/uL 0.0-0.1 Whole blood basic metabolic panel - 04/13/17 06:15 Serum or plasma sodium measurement (moles/volume) 143 mmol/ L 135-145 Serum or plasma potassium measurement (moles/volume) 3.4 mmol/L 3.6-5.0 Serum or plasma chloride measurement (moles/volume) 118 mmol /L 98-107 Carbon dioxide 16 mmol/L 21-32 Serum or plasma anion gap determination (moles/volume) 9 mmol/L 5-14 Serum or plasma urea nitrogen measurement (mass/volume) 41 mg/dL 7-18 Serum or plasma creatinine measurement (mass/volume) 1.73 mg /dL 0.60-1.30 Serum or plasma urea nitrogen/creatinine mass ratio 24 NRG Serum or plasma creatinine measurement with calculation of estimated glomerular filtration rate 28 NRG Serum or plasma glucose measurement (mass/volume) 120 mg/dL 70-105 Serum or plasma calcium measurement (mass/volume) 7.7 mg/dL 8.5-10.1 Serum or plasma phosphate measurement (mass/volume) - 04/13/17 06:15 Serum or plasma phosphate measurement (mass/volume) 2.7 mg/ dL 2.3-4.7 Magnesium - 04/13/17 06:15 Magnesium 1.7 mg/dL 1.8-2.4 Vancomycin trough - 04/13/17 08:12 Vancomycin trough 15.2 ug/mL 10.0-20.0 Whole blood hemoglobin and hematocrit panel - 04/13/17 17:56 Venous blood hemoglobin measurement (mass/volume) 9.6 g/dL 11.5-16.0 Blood hematocrit (volume fraction) 30 % 35-52 Encounters ACCT No. Visit Date/Time Discharge Status Pt. Type Provider Facility Loc./Unit Complaint [id number] 03/31/2016 23:11:00 2015 00:53:00 DIS Emergency TAHIRA FISCHER DO [facility] ER FELL,RT SIDE RIB PAIN,RT HIP PAIN [id number] 08/06/2015 10:31:00 2014 23:59:59 CLS Outpatient KEITH BEAUCHAMP [facility] LAB HLD,ANEMIA,KIDNEY STAGE III,VIT D DEF [id number] 07/07/2015 21:50:00 2014 17:00:00 DIS Inpatient ADITHYA DORADO MD [facility] SURGICAL UTI;ALTERED MENTAL STATUS;HYPOXIA ; [id number] 06/01/2015 00:11:00 2014 23:59:59 CLS Preadmit KEITH BEAUCHAMPC [facility] LAB CKD, ANEMIA,HTN [id number] 03/02/2015 11:28:00 2014 00:01:00 DIS Outpatient KEITH BEAUCHAMP [facility] LAB CKD, ANEMIA,HTN [id number] 04/09/2015 10:23:00 2014 23:59:59 CLS Outpatient KEITH BEAUCHAMP [facility] LAB CKD STAGE III,VIT D DEF,PROTEINURIA, ANEMIA CKD,WENDY [id number] 11/11/2014 11:28:00 2014 23:59:59 CLS Outpatient SILVIANO SOSA MD [facility] LAB CKD STAGE III,VIT D DEF, UKMVMNAFSD3O,ANEMIA,RENAL [id number] 09/09/2014 09:30:00 2013 23:59:59 CLS Outpatient ADITHYA DORADO MD [facility] LAB HTN,HLP,ROUTINE EXAM,DETENTION MED USE [id number] 05/20/2014 12:00:00 2013 23:59:59 CLS Outpatient ADITHYA DORADO MD [facility] LAB HTN,HYPERLIPIDEMIA,DETENTION MED USE [id number] 04/28/2014 12:00:00 2013 23:59:59 CLS Outpatient SILVIANO SOSA MD [facility] LAB CKD STAGE III,VIT D DEF,HTN , [id number] 03/26/2014 14:41:00 2013 23:59:59 CLS Outpatient ADITHYA DORADO MD [facility] RAD R HIP PAIN,SCIATTA,GATT INSTABILITY, BACK PAIN [id number] 03/19/2014 16:43:00 2013 17:11:00 DIS Emergency ZAK LIMA APRN [facility] ER R LEG HURT [id number] 12/23/2013 10:47:00 2013 23:59:59 CLS Outpatient SILVIANO SOSA MD [facility] LAB CKD III,VIT D FDFICIENCY, PROTEINURIA,ANEMIA,HTN [id number] 10/30/2013 12:11:00 2013 23:59:59 CLS Outpatient ADITHYA DORADO MD [facility] RAD COUGH [id number] 08/30/2013 07:31:00 2012 13:30:00 DIS Outpatient MATILDE UNDEWROOD DPM [facility] HECTORE LEFT [id number] 08/20/2013 12:04:00 2012 23:59:59 CLS Outpatient YASMINE ROMAN, MATILDE P [facility] PREOP LEFT RAMONA [id number] 08/19/2013 13:03:00 2012 23:59:59 CLS Outpatient SILVIANO SOSA MD [facility] LAB PROTEINURIA,ANEMIA CKD, HYPERTENSION, [id number] 07/15/2013 11:58:00 2012 23:59:59 CLS Outpatient SILVIANO SOSA MD [facility] LAB SKD IV [id number] 06/07/2013 12:17:00 2012 23:59:59 CLS Outpatient SILVIANO SOSA MD [facility] LAB PROTEINURIA,ANEMIA,HTN,CKD, RENAL OSTEODYSTROPHY [id number] 03/03/2013 09:42:00 2012 00:01:00 DIS Outpatient SILVIANO SOSA MD [facility] LAB BENIGN ESSENTIAL KIDNEY DISEASE,PROTEIMURIA [id number] 05/06/2013 13:09:00 2012 23:59:59 CLS Outpatient ADITHYA DORADO MD [facility] RAD COUGH [id number] 04/11/2013 12:04:00 2012 23:59:59 CLS Outpatient ADITHYA DORADO MD [facility] RAD HIP PAIN,PELVIS PAIN POST FALL [id number] 03/15/2013 11:14:00 2012 23:59:59 CLS Outpatient ADITHYA DORADO MD [facility] LAB HYPERLIPIDEMIA,HTN [id number] 04/09/2017 18:00:00 ACT Inpatient ADARSH DIOP DO [facility] ICU UPPER GI BLEED [id number] 03/30/2017 20:22:00 ACT Outpatient ADITHYA DORADO MD [facility] CVS R/O C-DIFF, DIAHREA [id number] 03/07/2017 07:19:00 ACT Outpatient ADITHYA DORADO MD [facility] RAD DIARRHEA,ABD DISCOMFORT [id number] 11/22/2016 15:43:00 ACT Outpatient MIHAELA STOVER FACC, ALI FACP CCDS [facility] RAD HTN,CAD,LT LEG CLAUDICATION [id number] 01/26/2016 10:47:00 ACT Outpatient MIHAELA STOVER FACC, ALI FACP CCDS [facility] CARD SOA,CAD, ABNORMAL EKG [id number] 01/22/2016 13:14:00 ACT Outpatient MIHAELA STOVER FACC, ALI FACP CCDS [facility] CARD SOA,CAD,ABNORMAL EKG [id number] 01/14/2016 10:13:00 Document Registration [id number] 01/02/2015 16:28:00 Document Registration [id number] 05/31/2013 00:00:00 Document Registration [id number] 12/08/2012 11:00:00 Document Registration [id number] 12/05/2012 10:17:00 Document Registration [id number] 11/08/2012 08:59:00 Document Registration [id number] 11/05/2012 09:00:00 Document Registration [id number] 10/31/2012 11:32:00 Document Registration [id number] 10/11/2012 00:00:00 Document Registration [id number] 09/12/2012 00:00:00 Document Registration [id number] 07/20/2012 11:13:00 Document Registration [id number] 07/12/2012 10:32:00 Document Registration [id number] 06/14/2012 12:53:00 Document Registration [id number] 05/30/2012 15:39:00 Document Registration [id number] 03/29/2012 09:48:00 Document Registration [id number] 03/20/2012 15:48:00 Document Registration [id number] 12/29/2011 08:53:00 Document Registration [id number] 12/13/2011 09:58:00 Document Registration [id number] 12/07/2011 11:23:00 Document Registration [id number] 09/02/2011 11:10:00 Document Registration [id number] 08/20/2011 14:14:00 Document Registration [id number] 08/12/2011 05:49:00 Document Registration [id number] 08/08/2011 08:47:00 Document Registration [id number] 08/04/2011 13:17:00 Document Registration [id number] 07/11/2011 11:19:00 Document Registration [id number] 07/11/2011 11:16:00 Document Registration [id number] 06/28/2011 12:52:00 Document Registration [id number] 06/21/2011 07:02:00 Document Registration [id number] 06/16/2011 11:13:00 Document Registration
[2017-04-14] MEDS: RT-ALBUTEROL/IPRATROPIUM 3 ML (DUONEB) VIAL INH SCH ×3 (10:17→19:20)
[2017-04-14] MEDS: NS IV 1000 ML 1,000 ML IV SCH (10:35)
[2017-04-14] MEDS: LACTOBACILLUS Acidoph/Bulgar (LACTINEX/FLORANEX) TAB PO SCH ×2 (10:39→16:24)
[2017-04-14] MEDS: SUCRALFATE 1 GM (CARAFATE) TAB PO SCH ×3 (10:39→21:04)
--- NOTE | 2017-04-14 13:08 | Physical Therapy Evaluation ---
PT Evaluation-General Medical Diagnosis Admission Date Apr 14, 2017 at 09:18 Medical Diagnosis: GI bleed post EGD Onset Date: Apr 09, 2017 Therapy Diagnosis Therapy Diagnosis: debility, weakness Height/Weight Height (Feet): 5 Height (Inches): 6.00 Weight (Pounds): 145 Weight (Ounces): 3.0 Precautions Precautions/Isolations: Fall Prevention, Standard Precautions Weight Bear Status Weight Bearing Restriction: Full Weight Bearing Location Restriction: LE Bilateral Referral Physician: Riana Garcia Reason for Referral: Evaluation/Treatment Medical History Pertinent Medical History: Arthritis, HTN, Renal Insufficiency Additional Medical History anemia, c-diff Current History Admitted with weakness and bloody emesis, difficulty with BM Reviewed History: Yes Social History Home: Single Level Current Living Status: Other Family (granddaughter) Entry Into Home: Stairs With Railing (2) PT Steps Into Home: 2 Prior/Core FIM Prior Level of Function Functional Gooding Measure 0=Not Assessed/NA 4=Minimal Assistance 1=Total Assistance 5=Supervision or Setup 2=Maximal Assistance 6=Modified Gooding 3=Moderate Assistance 7=Complete Gooding Bed Mobility: 7 Transfers (B,C,W/C) (FIM): 6 Gait: 6 Pt reports she was mod(I)/(I) at [facility]. Pt reports that she furniture cruises within the home. Has [facility] for community mobility. PT Evaluation-Current Subjective Pt in bed, agreeable. Denied pain. Pt/Family Goals Home with family Objective Patient Orientation: Person, Place, Time, Situation Problem Solving: Good Attachments: IV ROM/Strength ROM Upper Extremities WFL for mobility ROM Lower Extremities WFL for mobility Strength Upper Extremities WFL for mobility Strenght Lower Extremities grossly 3+/5 Integumentary/Posture Integumentary See nurses' notes Posture kyphotic Sensory Vision: Functional Hearing: Impaired Transfers Functional Gooding Measure 0=Not Assessed/NA 4=Minimal Assistance 1=Total Assistance 5=Supervision or Setup 2=Maximal Assistance 6=Modified Gooding 3=Moderate Assistance 7=Complete [place]ing Supine to/from Sit: 5 Sit to/from Stand: 4 Sit to Lying (QC): 5 Lying to Sitting/Side of Bed(Q: 5 Sit to Stand (QC): 4 Chair/Bjb-wp-Xxuvr Xfer(QC): 4 Gait Does the Patient Walk?: Yes Mode of Locomotion: Walk Anticipated Mode of Locomotion: Walk Gait (FIM): 2 Distance (FIM): 8=002-05 ft Distance: 50 Walk 50 ft with 2 Turns(QC): 4 Walk 150 ft (QC): 88 Gait Level of Assist: 4 Gait Persons Needed: 1 Gait Assistive Device: FWW Comments/Gait Description Pt ambulated 50' x 1 with FWW with CGA x 1. Pt has history of frequent (R) knee buckling (not demonstrated this session). Balance Sitting Static: Normal Sitting Dynamic: Normal Standing Static: Good Standing Dynamic: Fair Treatment Seated LE ex (AP, LAQ, marching, hip adduction/abduction) x 20 reps each. Chair- >BSC transfer with CGA x 1. Assist to doff brief. Up on BSC with needs met. O2 off per nursing with sats >93% on RA. Assessment/Needs Pt is an 86 y.o. female with debility, weakness. Pt would benefit from skilled PT to restore functional strength and improve functional activity tolerance to allow safe return home. Rehab Potential: Good PT Short Term Goals Short Term Goals Time Frame: Apr 21, 2017 Transfers (B,C,W/C) (FIM): 6 PT Alf Goals Alf Goals PT Pipeline Dispatcher Goals Time Frame: May 12, 2017 Transfers (B,C,W/C) (FIM): 6 Sit to Lying (QC): 6 Lying-Sitting on Side/Bed(QC): 6 Sit to Stand (QC): 6 Chair/Lrc-cz-Hcwry Xfer(QC): 6 Does the Patient Walk: Yes Gait (FIM): 5 Gait distance (FIM): 9=377-44 ft Distance: 50 Walk 50ft with 2 Turns (QC): 6 Walk 150 ft (QC): 6 Gait Level of Assist: 6 Gait Assistive Device: Cane Single Point Stairs (FIM): 2 # of Steps: 3 Stairs Level Of Assist: 4 LTGs established to allow safe return home. PT Plan Problem List Problem List: Activity Tolerance, Functional Strength, Safety, Balance, Gait, Transfer, Bed Mobility Treatment/Plan Treatment Plan: Continue Plan of Care Treatment Plan: Bed Mobility, Education, Functional Activity Izzy, Functional Strength, Gait, Safety, Therapeutic Exercise, Transfers Treatment Duration: May 12, 2017 # of days/week 5-6 Visits Per Week: 5-6 Minutes/Day (M-F): 15-30 Minutes/Day (Sat/Collins): PRN Pt/Family Agrees w/Plan: Yes Safety Risks/Education Teaching Recipient: Patient Teaching Methods: Discussion Response to Teaching: Verbalize Understanding PT POC Discharge Recommendations Therapy D/C Recommendations: Home w/ Family Support, Physical Therapy Home Care Barriers to Progress (R) knee pain/buckling Time/GCodes Time In: 1041 Time Out: 1105 Total Billed Treatment Time: 24 Total Billed Treatment 1, EVLOWC x 14', EX x 10' G Codes Necessary: MANDIE Alonzo DPVira Apr 14, 2017 13:07
--- NOTE | 2017-04-14 15:14 | Occupational Therapy Eval ---
OT Evaluation-General/PLF Medical Diagnosis Admission Date Apr 14, 2017 at 09:18 Medical Diagnosis: GI bleed post EGD, pneumonia Onset Date: Apr 09, 2017 Therapy Diagnosis Therapy Diagnosis: weakness, decr self care, decr funct mobility Height/Weight Height (Feet): 5 Height (Inches): 6.00 Weight (Pounds): 145 Weight (Ounces): 3.0 Precautions Precautions/Isolations: Fall Prevention, Standard Precautions Weight Bear Status Weight Bearing Restriction: Full Weight Bearing Location Restriction: LE Bilateral Referral Physician: Riana Garcia Referral Reason: Evaluation/Treatment Medical History Pertinent Medical History: Arthritis, CAD, HTN, Renal Insufficiency Additional Medical History depression, cholecystectomy, c diff, chronic renal failure. L hammer toe repair , ventral hernia repair, Current History Anemia, pneumonia..Pt was in the hospital about a month ago and discharged to [facility] for strengthening. Readmitted to acute care with GI bleed and pneumonia. Now [facility] for IV antibiotics and therapy. Unsure of discharge plans from here. Reviewed History: Yes Social History Home: Single Level Current Living Status: Other Family (granddaughter) Entry Into Home: Stairs With Railing (2) Steps Into Home: 2 ADL-Prior Level of Function ADL PLOF Comments Pt reported that she was independent with all basic ADLs [facility]. She had not been using a device for walking except started to use a FWW while in the [facility] Self: Yes OT Current Status Subjective Pt seen in room, up in recliner, agreeable to OT. Pt reported pain 2/10 in lower abdomen area. Mental Status/Objective Patient Orientation: Person, Place, Situation Attachments: Central Line, IV Current Glasses/Contacts: Yes Dentures/Partials: No ADL-Treatment Functional [place] Measure 0=Not Assessed/NA 4=Minimal Assistance 1=Total Assistance 5=Supervision or Setup 2=Maximal Assistance 6=Modified [place] 3=Moderate Assistance 7=Complete IndependenceIRFPAI Quality Coding Scale 6 Independent with activity with or without an assistive device 5 Patient requires set up or clean up by helper. Patient completes activity by themselves 4 Supervision or touching assist (CGA). [place] provide cues , steadying assist 3 The helper provides less than half the effort to complete the activity 2 The helper provides more than half the effort to complete the activity 1 Dependent. The helper does all the effort to complete an activity 7 Patient refused to complete or attempt activity 9 The patient did not perform the activity before the current illness or injury 88 Not attempted due to Medical conditions or safety concerns Eating (FIM): 5 (setup) Eating (QC): 5 (setup) Grooming (FIM): 5 (Pt had not brushed teeth yet but provided with toothpaste, toothbrush and other itens for setup. Seated) Oral Hygiene (QC): 5 Toileting (FIM): 4 (Pt reported steadying assistance on BSC) Toileting Hygiene (QC): 4 Toilet/Commode Transfer (FIM): 4 (Pt reported steadying assistance for transfer to BSC) Toilet Transfer (QC): 4 Education OT Patient Education: Purpose of tx/functional activities, Rehab process Teaching Recipient: Patient Teaching Methods: Discussion Response to Teaching: Verbalize Understanding OT Short Term Goals Short Term Goals Toileting(FIM): 5 Toilet/Commode Transfer(FIM): 5 1=Demonstrate adherence to instructed precautions during ADL tasks. 2=Patient will verbalize/demonstrate understanding of assistive devices/ modifications for ADL. 3=Patient will improve strength/tolerance for activity to enable patient to perform ADL's. OT Shelter Goals Reinforcing Steel Machine Operator Goals Time Frame: May 05, 2017 Eating (FIM): 6 Eating (QC): 6 Groomin Oral Hygiene (QC): 6 Bathing(FIM): 5 Upper Body Dressing(FIM): 6 Lower Body Dressing(FIM): 6 Toileting(FIM): 6 Toileting Hygiene (QC): 6 Toilet/Commode Transfer(FIM): 6 Toilet/Commode Transfer (QC): 6 Additional Goals: 2-Verbalize Understanding, 3-ImproveStrength/Izzy 1=Demonstrate adherence to instructed precautions during ADL tasks. 2=Patient will verbalize/demonstrate understanding of assistive devices/ modifications for ADL. 3=Patient will improve strength/tolerance for activity to enable patient to perform ADL's. OT Education/Plan Problem List/Assessment Assessment: Decreased UE Strength, Dependent Transfers, Impaired Self-Care Skills Pt would benefit from skilled OT to increase her independence in basic self care and decrease caregiver burden Discharge Recommendations Plan/Recommendations: Continue POC Target Placement may be skilled, may be home Treatment Plan/Plan of Care Treatment,Training & Education: Yes Patient would benefit from OT for education, treatment and training to promote independence in ADL's, mobility, safety and/or upper extremity function for ADL' s. Plan of Care: ADL Retraining, Functional Mobility, UE Funct Exercise/Act Treatment Duration: May 05, 2017 # of days/week 5-6 Visits Per Week: 5-6 Rehab Potential: Good Time/GCodes Start Time: 14:40 Stop Time: 15:00 Total Time Billed (hr/min): 20 Billed Treatment Time visit, 20 minutes evaluation low intensity PAIGE ROSSI OT Apr 14, 2017 15:14
[2017-04-14] MEDS: PIPERACILLIN SODIUM/TAZOBACTAM 4.5 GM in NS (IVPB) 100 ML IV SCH (16:24)
[2017-04-14 18:00] VITALS: BP 143/65
[2017-04-14] MEDS ORDERED: TROUGH ORDER-PHARMACY XX NR (19:00)
[2017-04-14] MEDS: VANCOMYCIN INJECTION 500 MG in NS (IVPB) 100 ML IV SCH (21:03)
[2017-04-14] MEDS: PANTOPRAZOLE 40 MG/10 ML (PROTONIX) VIAL IV SCH (21:05)
[2017-04-14 21:10] VITALS: BP 150/70
[2017-04-14] MEDS: meTOproloL SUCCINATE 50 MG (TOPROL XL) TAB PO SCH (21:13)
[2017-04-15] MEDS: PIPERACILLIN SODIUM/TAZOBACTAM 4.5 GM in NS (IVPB) 100 ML IV SCH ×4 (00:07→23:38)
[2017-04-15] MEDS: NS IV 1000 ML 1,000 ML IV SCH ×3 (00:07→18:07)
[2017-04-15] MEDS: SUCRALFATE 1 GM (CARAFATE) TAB PO SCH ×4 (05:05→20:11)
[2017-04-15] MEDS: LACTOBACILLUS Acidoph/Bulgar (LACTINEX/FLORANEX) TAB PO SCH ×3 (05:05→16:26)
[2017-04-15 06:01] VITALS: BP 120/56
[2017-04-15 06:05] LABS: MEAN PLATELET VOLUME 11.3 FL (7.4-10.4); RED BLOOD COUNT 2.89 10^6/uL (4.35-5.85); RED CELL DISTRIBUTION WIDTH 17.1 % (10.0-14.5)
[2017-04-15 06:19] LABS: ALBUMIN 2.2 GM/DL (3.2-4.5); BILIRUBIN,TOTAL 0.5 MG/DL (0.1-1.0); CALCIUM 7.4 MG/DL (8.5-10.1); CREATININE SERUM 1.66 MG/DL (0.60-1.30); MAGNESIUM 1.4 MG/DL (1.8-2.4); POTASSIUM 2.8 MMOL/L (3.6-5.0)
[2017-04-15] MEDS: RT-ALBUTEROL/IPRATROPIUM 3 ML (DUONEB) VIAL INH SCH ×4 (06:38→18:35)
[2017-04-15] MEDS: POTASSIUM CL 10MEQ/50ML IVPB 50 ML IV SCH ×2 (08:00→10:03)
[2017-04-15] MEDS: MAGNESIUM 1 GM/100 ML IVPB 100 ML IV SCH ×2 (08:00→10:03)
[2017-04-15] MEDS: meTOproloL SUCCINATE 50 MG (TOPROL XL) TAB PO SCH ×2 (08:43→20:11)
[2017-04-15] MEDS: PANTOPRAZOLE 40 MG/10 ML (PROTONIX) VIAL IV SCH ×2 (08:43→20:11)
[2017-04-15] MEDS: amLODIPine 5 MG (NORVASC) TAB PO SCH (08:43)
[2017-04-15] MEDS: fluCOnazole (DIFLUCAN) 100 MG TAB PO SCH (08:43)
[2017-04-15] MEDS: KCL 20 MEQ TAB (K-DUR) PO SCH ×4 (08:43→16:23)
--- NOTE | 2017-04-15 08:43 | Diagnostic Imaging Report ---
INDICATION: Dyspnea FINDINGS: Basilar atelectasis or infiltrates greater left than right have improved. Bilateral effusions greater left than right unchanged. No adverse development. IMPRESSION: Stable pleural fluid but improved basilar expansion. Patchy infiltrates in the upper lobes peripherally stable. No adverse development. Dictated by: Dictated on workstation # [id number]
[2017-04-15 08:58] VITALS: BP 156/72
--- NOTE | 2017-04-15 11:09 | Physical Therapy Daily Note ---
PT Daily Note-Current Subjective States that she is doing okay. Pain Numeric Pain Scale: 0-No Pain Transfers Functional [place] Measure 0=Not Assessed/NA 4=Minimal Assistance 1=Total Assistance 5=Supervision or Setup 2=Maximal Assistance 6=Modified [place] 3=Moderate Assistance 7=Complete IndependenceIRFPAI Quality Coding Scale 6 Independent with activity with or without an assistive device 5 Patient requires set up or clean up by helper. Patient completes activity by themselves 4 Supervision or touching assist (CGA). [place] provide cues , steadying assist 3 The helper provides less than half the effort to complete the activity 2 The helper provides more than half the effort to complete the activity 1 Dependent. The helper does all the effort to complete an activity 7 Patient refused to complete or attempt activity 9 The patient did not perform the activity before the current illness or injury 88 Not attempted due to Medical conditions or safety concerns Transfers (B, C, W/C) (FIM): 5 Sit to/from Stand: 5 Gait Training Gait (FIM): 1 Distance (FIM): 1=up to 49 ft Distance: 45' Gait Level of Assist: 5 Gait Persons Needed: 1 Gait Assistive Device: FWW Assessment Current Status: Excellent Progress Patient did well with gait. PT Short Term Goals Short Term Goals Time Frame: Apr 21, 2017 PT Sheet Pile Driver Operator Goals Mcc Goals PT Sheet Pile Driver Operator Goals Time Frame: May 12, 2017 Transfers (B,C,W/C) (FIM): 6 Gait (FIM): 5 Gait distance (FIM): 5=184-17 ft Distance: 50 Gait Level of Assist: 6 Gait Assistive Device: Cane Single Point Stairs (FIM): 2 # of Steps: 3 Stairs Level Of Assist: 4 PT Plan Treatment/Plan Treatment Plan: Continue Plan of Care Treatment Plan: Bed Mobility, Education, Functional Activity Izzy, Functional Strength, Gait, Safety, Therapeutic Exercise, Transfers Treatment Duration: May 12, 2017 Visits Per Week: 5-6 Minutes/Day (M-F): 15-30 Minutes/Day (Sat/[place]): PRN Time/GCodes Time In: 1050 Time Out: 1105 Total Billed Treatment Time: 15' Total Billed Treatment 1, GT x 15' G Codes Necessary: JOSEPH Conroy PT Apr 15, 2017 11:08
--- NOTE | 2017-04-15 11:30 | Occupational Ther Daily Note ---
OT Current Status-Daily Note Subjective Pt alert, sitting in recliner. Pt agreed to therapy. No c/o pain at this time. Mental Status/Objective Functional [place] Measure 0=Not Assessed/NA 4=Minimal Assistance 1=Total Assistance 5=Supervision or Setup 2=Maximal Assistance 6=Modified [place] 3=Moderate Assistance 7=Complete [place] ADL-Treatment Pt was set up for sponge bath. Pt was able to bathe upper/lower body and buttock and yohannes area with CGA in standing. Pt was able to don socks by self. Pt took increased time to complete ADLs and multiple recovery breaks throughout task. After set up pt complete oral care. After therapy, pt sitting in recliner with call light/phone in reach. All needs met in room. Functional [place] Measure 0=Not Assessed/NA 4=Minimal Assistance 1=Total Assistance 5=Supervision or Setup 2=Maximal Assistance 6=Modified [place] 3=Moderate Assistance 7=Complete IndependenceIRFPAI Quality Coding Scale 6 Independent with activity with or without an assistive device 5 Patient requires set up or clean up by helper. Patient completes activity by themselves 4 Supervision or touching assist (CGA). [place] provide cues , steadying assist 3 The helper provides less than half the effort to complete the activity 2 The helper provides more than half the effort to complete the activity 1 Dependent. The helper does all the effort to complete an activity 7 Patient refused to complete or attempt activity 9 The patient did not perform the activity before the current illness or injury 88 Not attempted due to Medical conditions or safety concerns Grooming (FIM): 5 Oral Hygiene (QC): 5 Bathing (FIM): 4 Bathing Location: L Arm, R Arm, L Upper Leg, R Upper Leg, L Lower Leg ( including foot), R Lower Leg (including foot), Chest, Abdomen, Buttocks, Perineal Area Lower Body Dressing (FIM): 5 OT Short Term Goals Short Term Goals Toileting(FIM): 5 Toilet/Commode Transfer(FIM): 5 1=Demonstrate adherence to instructed precautions during ADL tasks. 2=Patient will verbalize/demonstrate understanding of assistive devices/ modifications for ADL. 3=Patient will improve strength/tolerance for activity to enable patient to perform ADL's. OT Halfway Goals Halfway Goals Time Frame: May 05, 2017 Eating (FIM): 6 Eating (QC): 6 Groomin Oral Hygiene (QC): 6 Bathing(FIM): 5 Upper Body Dressing(FIM): 6 Lower Body Dressing(FIM): 6 Toileting(FIM): 6 Toileting Hygiene (QC): 6 Toilet/Commode Transfer(FIM): 6 Toilet/Commode Transfer (QC): 6 Additional Goals: 2-Verbalize Understanding, 3-ImproveStrength/Izzy 1=Demonstrate adherence to instructed precautions during ADL tasks. 2=Patient will verbalize/demonstrate understanding of assistive devices/ modifications for ADL. 3=Patient will improve strength/tolerance for activity to enable patient to perform ADL's. OT Education/Plan Problem List/Assessment Pt would benefit from skilled OT to increase her independence in basic self care and decrease caregiver burden Discharge Recommendations Plan/Recommendations: Continue POC Treatment Plan/Plan of Care Patient would benefit from OT for education, treatment and training to promote independence in ADL's, mobility, safety and/or upper extremity function for ADL' s. Plan of Care: ADL Retraining, Functional Mobility, UE Funct Exercise/Act Treatment Duration: May 05, 2017 Visits Per Week: 5-6 Rehab Potential: Good Time/GCodes Start Time: 09:17 Stop Time: 09:32 Total Time Billed (hr/min): 15 Billed Treatment Time 1 visit-ADL 1 (15 min) GENARO COONEY Apr 15, 2017 11:30
[2017-04-15 12:00] VITALS: BP 170/61
--- NOTE | 2017-04-15 13:21 | Progress Note (SOAP) ---
Subjective Subjective Date Seen by Provider: Apr 15, 2017 Time Seen by Provider: 11:15 86 yo F - no overnight events- no new report of GI bleeding. Hgb did decrease since yesterday. Review of Systems General: No Chills, No Night Sweats HEENT: No Head Aches, No Visual Changes Pulmonary: Dyspnea, No Cough Cardiovascular: No: Chest Pain, Palpitations Gastrointestinal: No: Nausea, Vomiting Genitourinary: No Dysuria, No Frequency Musculoskeletal: No: neck pain, shoulder pain Neurological: No: Numbness, Weakness Objective Exam Vital Signs Vital Signs Date Time Temp Pulse Resp B/P (MAP) Pulse Ox O2 Delivery O2 Flow Rate FiO2 04/15/17 11:07 93 Room Air 04/15/17 09:00 Room Air 04/15/17 08:58 97.1 18 156/72 97 Nasal Cannula 2.00 04/15/17 06:39 95 Nasal Cannula 1.00 04/15/17 06:01 99.1 77 18 120/56 96 Room Air 04/14/17 21:10 66 150/70 04/14/17 21:00 Room Air 04/14/17 19:20 93 Room Air 04/14/17 18:00 98.9 60 24 143/65 94 04/14/17 14:13 91 Room Air I & O 04/15/17 07:00 Intake Total 2178 ml Output Total 700 ml Balance 1478 ml Vital Signs Date Time Temp Pulse Resp B/P (MAP) Pulse Ox O2 Delivery O2 Flow Rate FiO2 04/16/17 11:03 Nasal Cannula 2.00 04/16/17 09:00 Room Air 04/16/17 07:13 97 Nasal Cannula 2.00 04/16/17 05:20 99.1 80 20 161/73 92 Nasal Cannula 2.00 04/15/17 21:00 Nasal Cannula 2.00 04/15/17 19:40 98.9 81 20 137/74 98 Nasal Cannula 2.00 04/15/17 18:36 97 Nasal Cannula 2.00 04/15/17 16:00 98.4 70 22 134/64 97 Nasal Cannula 2.00 04/15/17 14:44 95 Nasal Cannula 2.00 I & O 04/16/17 07:00 Intake Total 1800 ml Output Total 375 ml Balance 1425 ml General Appearance: No Apparent Distress, WD/WN HEENT: PERRL/EOMI Neck: Non Tender, Supple Respiratory: Chest Non Tender, Lungs Clear, No Accessory Muscle Use, No Respiratory Distress Cardiovascular: Regular Rate, Rhythm Gastrointestinal: Normal Bowel Sounds Rectal: Deferred Back: Normal Inspection, No CVA Tenderness Extremity: Non Tender, No Calf Tenderness, Pedal Edema (1+) Neurologic/Psychiatric: Alert, Oriented x3, Normal Mood/Affect Skin: Warm/Dry Results Lab Laboratory Tests 04/14/17 20:00: Vancomycin Level Trough 17.7 04/15/17 05:12: White Blood Count 12.0H, Red Blood Count 2.89L, Hemoglobin 8.8L, Hematocrit 27L , Mean Corpuscular Volume 92, Mean Corpuscular Hemoglobin 30, Mean Corpuscular Hemoglobin Concent 33, Red Cell Distribution Width 17.1H, Platelet Count 115L, Mean Platelet Volume 11.3H, Sodium Level 140, Potassium Level 2.8L, Chloride Level 115H, Carbon Dioxide Level 16L, Anion Gap 9, Blood Urea Nitrogen 24H, Creatinine 1.66H, Estimat Glomerular Filtration Rate 29, BUN/Creatinine Ratio 14 , Glucose Level 92, Calcium Level 7.4L, Magnesium Level 1.4L, Total Bilirubin 0.5, Aspartate Amino Transf (AST/SGOT) 21, Alanine Aminotransferase (ALT/SGPT) 11, Alkaline Phosphatase 52, Total Protein 5.0L, Albumin 2.2L Assessment/Plan Assessment/Plan Assessment/Plan 86 yo F acute GI bleed- Surgery consulted- EGD upper stable. continue protonix, sulcrafate, monitor H/H- repeating in AM acute blood loss anemia- due to gi bleed also anemia of chronic disease. anemia analyzer ordered. Dr. Garcia considering erythropoietin. Pneumonia- zosyn (stop date of 04/16/17), vancomycin COPD- at baseline oxygen requirement. 2L NC Acute on chronic kidney disease- trending Cr - IVF- avoid nephrotoxic agents- currently on vancomycin HTN- restarted home meds depression- celexa constipation- h/o c.diff- monitor No chemical ppx- due to GI bleed dispo: monitor on swing bed, rechecking hgb in AM- surgery following along. 04/16/2017-- pt reports no new issues- feeling better- eating some of her meals. Has had more dark bowel movements- No rebecca blood. Hgb stable Cr improved overnight after increasing IVF to 100ml/hr. Problems: CHRISTINE MARCUM MD Apr 15, 2017 13:21
--- NOTE | 2017-04-15 13:24 | Progress Note ---
Subjective Time Seen by Provider: 13:01 Subjective/Events-last exam Pt seen and examined, states she feels fine. Denies abominal pain. She states her most recent BM did look black. Denies weakness, denies fever or chills. Tolerating diet. Review of Systems General: No Chills, No Night Sweats, Fatigue Pulmonary: No Cough Cardiovascular: No: Chest Pain, Palpitations Gastrointestinal: Melena, No: Abdominal Pain, Nausea, Vomiting Objective Exam Vital Signs Date Time Temp Pulse Resp B/P (MAP) Pulse Ox O2 Delivery O2 Flow Rate FiO2 04/15/17 11:07 93 Room Air 04/15/17 09:00 Room Air 04/15/17 08:58 97.1 18 156/72 97 Nasal Cannula 2.00 04/15/17 06:39 95 Nasal Cannula 1.00 04/15/17 06:01 99.1 77 18 120/56 96 Room Air 04/14/17 21:10 66 150/70 04/14/17 21:00 Room Air 04/14/17 19:20 93 Room Air 04/14/17 18:00 98.9 60 24 143/65 94 04/14/17 14:13 91 Room Air I & O 04/15/17 07:00 Intake Total 2178 ml Output Total 700 ml Balance 1478 ml Capillary Refill : General Appearance: No Apparent Distress, Chronically ill, Thin HEENT: PERRL/EOMI, Pharynx Normal Neck: Non Tender, Supple Respiratory: Lungs Clear, No Accessory Muscle Use, No Respiratory Distress Cardiovascular: Regular Rate, Rhythm, No Edema Gastrointestinal: soft, no organomegaly, No distended Neurologic/Psychiatric: Alert, Oriented x3, Normal Mood/Affect, edge stripper II-XII Norm as Tested Skin: Warm/Dry, Pallor Results Lab Laboratory Tests 04/14/17 20:00: Vancomycin Level Trough 17.7 04/15/17 05:12: White Blood Count 12.0H, Red Blood Count 2.89L, Hemoglobin 8.8L, Hematocrit 27L , Mean Corpuscular Volume 92, Mean Corpuscular Hemoglobin 30, Mean Corpuscular Hemoglobin Concent 33, Red Cell Distribution Width 17.1H, Platelet Count 115L, Mean Platelet Volume 11.3H, Sodium Level 140, Potassium Level 2.8L, Chloride Level 115H, Carbon Dioxide Level 16L, Anion Gap 9, Blood Urea Nitrogen 24H, Creatinine 1.66H, Estimat Glomerular Filtration Rate 29, BUN/Creatinine Ratio 14 , Glucose Level 92, Calcium Level 7.4L, Magnesium Level 1.4L, Total Bilirubin 0.5, Aspartate Amino Transf (AST/SGOT) 21, Alanine Aminotransferase (ALT/SGPT) 11, Alkaline Phosphatase 52, Total Protein 5.0L, Albumin 2.2L Assessment/Plan Assessment/Plan Assessment/Plan 1. Duodenal Ulcer with bleed 2. Chronic blood loss anemia 3. UTI 4. Diverticulitis 5. Melena Pt hemoglobin dropped again last night with melena. Would recheck Hg, continue to monitor pt. No signs requiring surgical intervention at this time. I will follow along. LILIA FERNANDEZ DO Apr 15, 2017 13:24
[2017-04-15 16:00] VITALS: BP 134/64
[2017-04-15 18:19] LABS: MEAN PLATELET VOLUME 11.3 FL (7.4-10.4); RED BLOOD COUNT 3.27 10^6/uL (4.35-5.85); RED CELL DISTRIBUTION WIDTH 17.2 % (10.0-14.5); WHITE BLOOD COUNT 14.9 10^3/uL (4.3-11.0)
[2017-04-15 18:33] LABS: ALBUMIN 2.6 GM/DL (3.2-4.5); CALCIUM 7.6 MG/DL (8.5-10.1); CREATININE SERUM 1.82 MG/DL (0.60-1.30); PHOSPHORUS 1.6 MG/DL (2.3-4.7); POTASSIUM 4.1 MMOL/L (3.6-5.0)
[2017-04-15 19:40] VITALS: BP 137/74
[2017-04-15] MEDS: VANCOMYCIN INJECTION 500 MG in NS (IVPB) 100 ML IV SCH (20:11)
[2017-04-16] MEDS: LACTOBACILLUS Acidoph/Bulgar (LACTINEX/FLORANEX) TAB PO SCH ×3 (05:12→15:07)
[2017-04-16] MEDS: SUCRALFATE 1 GM (CARAFATE) TAB PO SCH ×4 (05:12→20:18)
[2017-04-16 05:20] VITALS: BP 161/73
[2017-04-16 05:26] LABS: MEAN PLATELET VOLUME 11.2 FL (7.4-10.4); RED BLOOD COUNT 2.9 10^6/uL (4.35-5.85); RED CELL DISTRIBUTION WIDTH 17.2 % (10.0-14.5); WHITE BLOOD COUNT 13.7 10^3/uL (4.3-11.0)
[2017-04-16 05:59] LABS: ALBUMIN 2.2 GM/DL (3.2-4.5); BILIRUBIN,TOTAL 0.4 MG/DL (0.1-1.0); CALCIUM 7.8 MG/DL (8.5-10.1); CREATININE SERUM 1.69 MG/DL (0.60-1.30); MAGNESIUM 1.9 MG/DL (1.8-2.4); TOTAL PROTEIN 5.4 GM/DL (6.4-8.2)
[2017-04-16] MEDS: RT-ALBUTEROL/IPRATROPIUM 3 ML (DUONEB) VIAL INH SCH ×4 (07:11→19:16)
[2017-04-16] MEDS: PANTOPRAZOLE 40 MG/10 ML (PROTONIX) VIAL IV SCH ×2 (08:28→20:18)
[2017-04-16] MEDS: amLODIPine 5 MG (NORVASC) TAB PO SCH (08:28)
[2017-04-16] MEDS: fluCOnazole (DIFLUCAN) 100 MG TAB PO SCH (08:28)
[2017-04-16] MEDS: PIPERACILLIN SODIUM/TAZOBACTAM 4.5 GM in NS (IVPB) 100 ML IV SCH (08:28)
[2017-04-16] MEDS: meTOproloL SUCCINATE 50 MG (TOPROL XL) TAB PO SCH ×2 (08:28→20:18)
[2017-04-16] MEDS: NS IV 1000 ML 1,000 ML IV SCH ×2 (08:30→19:50)
--- NOTE | 2017-04-16 11:35 | Diagnostic Imaging Report ---
INDICATION: Cough, dyspnea. COMPARISON: 04/15/2017. FINDINGS: There continues to be small bilateral basilar pleural effusions larger on the left. There is minimal infiltrate noted in the right upper lung which is stable. Lungs are otherwise clear. The heart is not enlarged. Right PICC line is in good position. No new infiltrates have developed. IMPRESSION: Stable chest with small bilateral pleural effusions and mild right upper lobe infiltrate. Dictated by: Dictated on workstation # [id number]
--- NOTE | 2017-04-16 12:25 | Progress Note ---
Subjective Time Seen by Provider: 11:00 Subjective/Events-last exam Pt seen and examined, denies abdominal pain. States she still had some black BM 's; even this am. Her main question is why are her feet swelling. Review of Systems General: No Chills, No Night Sweats, Fatigue Pulmonary: No Dyspnea, No Cough Cardiovascular: Edema, No: Chest Pain Gastrointestinal: Melena, No: Abdominal Pain, Nausea, Vomiting Objective Exam Vital Signs Date Time Temp Pulse Resp B/P (MAP) Pulse Ox O2 Delivery O2 Flow Rate FiO2 04/16/17 11:03 Nasal Cannula 2.00 04/16/17 09:00 Room Air 04/16/17 07:13 97 Nasal Cannula 2.00 04/16/17 05:20 99.1 80 20 161/73 92 Nasal Cannula 2.00 04/15/17 21:00 Nasal Cannula 2.00 04/15/17 19:40 98.9 81 20 137/74 98 Nasal Cannula 2.00 04/15/17 18:36 97 Nasal Cannula 2.00 04/15/17 16:00 98.4 70 22 134/64 97 Nasal Cannula 2.00 04/15/17 14:44 95 Nasal Cannula 2.00 I & O 04/16/17 07:00 Intake Total 1800 ml Output Total 375 ml Balance 1425 ml Capillary Refill : General Appearance: No Apparent Distress, WD/WN HEENT: PERRL/EOMI Neck: Non Tender, Supple Respiratory: Chest Non Tender, Lungs Clear, No Accessory Muscle Use, No Respiratory Distress Cardiovascular: Regular Rate, Rhythm Gastrointestinal: soft, no organomegaly, No distended Extremity: Non Tender, No Calf Tenderness, Pedal Edema (+1 edema in b/l LE, from mid-[place] down) Neurologic/Psychiatric: Alert, Oriented x3, Normal Mood/Affect Skin: Warm/Dry Results Lab Laboratory Tests 04/15/17 18:00: White Blood Count 14.9H, Red Blood Count 3.27L, Hemoglobin 9.8L, Hematocrit 30L , Mean Corpuscular Volume 92, Mean Corpuscular Hemoglobin 30, Mean Corpuscular Hemoglobin Concent 33, Red Cell Distribution Width 17.2H, Platelet Count 154, Mean Platelet Volume 11.3H, Sodium Level 135, Potassium Level 4.1, Chloride Level 114H, Carbon Dioxide Level 13L, Anion Gap 8, Blood Urea Nitrogen 23H, Creatinine 1.82H, Estimat Glomerular Filtration Rate 26, BUN/Creatinine Ratio 13 , Glucose Level 244H, Calcium Level 7.6L, Phosphorus Level 1.6L, Albumin 2.6L 04/16/17 05:15: White Blood Count 13.7H, Red Blood Count 2.90L, Hemoglobin 8.7L, Hematocrit 27L , Mean Corpuscular Volume 92, Mean Corpuscular Hemoglobin 30, Mean Corpuscular Hemoglobin Concent 33, Red Cell Distribution Width 17.2H, Platelet Count 147, Mean Platelet Volume 11.2H, Sodium Level 139, Potassium Level 4.0, Chloride Level 117H, Carbon Dioxide Level 17L, Anion Gap 5, Blood Urea Nitrogen 22H, Creatinine 1.69H, Estimat Glomerular Filtration Rate 29, BUN/Creatinine Ratio 13 , Glucose Level 84, Calcium Level 7.8L, Albumin 2.2L, Magnesium Level 1.9, Total Bilirubin 0.4, Aspartate Amino Transf (AST/SGOT) 26, Alanine Aminotransferase (ALT/SGPT) 15, Alkaline Phosphatase 52, Total Protein 5.4L Assessment/Plan Assessment/Plan Assessment/Plan Chronid GI bleed- Hg stable from yesterday, still has melena. continue protonix, octreotide, monitor H/H- repeating in AM Acute blood loss anemia- due to gi bleed also anemia of chronic disease. anemia analyzer ordered. Dr. Garcia considering erythropoietin. Pedal edema - monitor, elevate legs, encourage PO protein Pneumonia- zosyn, vancomycin COPD- at baseline oxygen requirement. 2L NC Acute on chronic kidney disease- trending Cr - was improving now increased- HTN- restarted home meds depression- celexa constipation- h/o c.diff- monitor No chemical VTE- due to GI bleed LILIA FERNANDEZ DO Apr 16, 2017 12:25
[2017-04-16] MEDS: OCTREOTIDE (FOR SQ USE) 100 MCG/ML VIAL (SandoSTATIN) SC SCH ×2 (15:07→21:58)
[2017-04-16] MEDS: KCL 20 MEQ TAB (K-DUR) PO SCH (15:07)
[2017-04-16 17:34] VITALS: BP 178/77
[2017-04-16] MEDS: VANCOMYCIN INJECTION 500 MG in NS (IVPB) 100 ML IV SCH (20:18)
[2017-04-17] VITALS (7 sets, daily range): BP systolic 133–178; BP diastolic 69–79
[2017-04-17] MEDS: OCTREOTIDE (FOR SQ USE) 100 MCG/ML VIAL (SandoSTATIN) SC SCH ×3 (05:14→22:09)
[2017-04-17] MEDS: SUCRALFATE 1 GM (CARAFATE) TAB PO SCH ×4 (05:14→20:52)
[2017-04-17] MEDS: LACTOBACILLUS Acidoph/Bulgar (LACTINEX/FLORANEX) TAB PO SCH ×3 (05:14→16:34)
[2017-04-17 05:17] LABS: MEAN PLATELET VOLUME 11.1 FL (7.4-10.4); RED BLOOD COUNT 2.6 10^6/uL (4.35-5.85); RED CELL DISTRIBUTION WIDTH 17.2 % (10.0-14.5); WHITE BLOOD COUNT 13.4 10^3/uL (4.3-11.0)
[2017-04-17 05:35] LABS: CREATININE SERUM 1.59 MG/DL (0.60-1.30); POTASSIUM 3.9 MMOL/L (3.6-5.0)
[2017-04-17 05:36] LABS: ALBUMIN 2.2 GM/DL (3.2-4.5); BILIRUBIN,TOTAL 0.3 MG/DL (0.1-1.0); CALCIUM 7.4 MG/DL (8.5-10.1); TOTAL PROTEIN 4.9 GM/DL (6.4-8.2)
[2017-04-17] MEDS: RT-ALBUTEROL/IPRATROPIUM 3 ML (DUONEB) VIAL INH SCH ×4 (07:31→19:10)
[2017-04-17] MEDS: NS IV 1000 ML 1,000 ML IV SCH (07:36)
[2017-04-17] MEDS: PANTOPRAZOLE 40 MG/10 ML (PROTONIX) VIAL IV SCH ×2 (08:30→20:52)
[2017-04-17] MEDS: fluCOnazole (DIFLUCAN) 100 MG TAB PO SCH (08:30)
[2017-04-17] MEDS: meTOproloL SUCCINATE 50 MG (TOPROL XL) TAB PO SCH ×2 (08:30→20:52)
[2017-04-17] MEDS: amLODIPine 5 MG (NORVASC) TAB PO SCH (08:30)
[2017-04-17] MEDS ORDERED: NS IV 500 ML 500 ML IV SCH (08:37)
--- NOTE | 2017-04-17 08:37 | Progress Note (SOAP) ---
Subjective Date Seen by Provider: Apr 17, 2017 Time Seen by Provider: 08:45 Subjective/Events-last exam PT REPORTS THAT SHE IS FEELING BETTER, HER ABDOMEN DOES NOT HURT. SHE DENIES CHEST PAIN, SHORTNESS OF BREATH. Review of Systems General: Fatigue HEENT: No Head Aches Pulmonary: No Dyspnea, Cough Cardiovascular: Edema, No: Chest Pain Gastrointestinal: No: Nausea Genitourinary: No Dysuria Musculoskeletal: No: back pain Neurological: Weakness, No: Confusion Objective Exam Vital Signs Date Time Temp Pulse Resp B/P (MAP) Pulse Ox O2 Delivery O2 Flow Rate FiO2 04/17/17 07:31 94 Nasal Cannula 2.00 04/17/17 06:00 96.4 70 16 133/70 98 Nasal Cannula 2.00 04/16/17 21:00 Room Air 04/16/17 19:16 98 Nasal Cannula 2.00 04/16/17 17:34 98.8 91 18 178/77 96 Nasal Cannula 2.00 04/16/17 14:47 94 Nasal Cannula 2.00 04/16/17 11:03 Nasal Cannula 2.00 04/16/17 09:00 Room Air I & O 04/17/17 07:00 Intake Total 3460 ml Balance 3460 ml Capillary Refill : General Appearance: No Apparent Distress, WD/WN HEENT: PERRL/EOMI Neck: Full Range of Motion, Supple Respiratory: Chest Non Tender, Lungs Clear, Normal Breath Sounds, No Accessory Muscle Use Cardiovascular: Regular Rate, Rhythm Gastrointestinal: normal bowel sounds, non tender, soft, no organomegaly Extremity: Pedal Edema (4+ AT FEET, 2+ AT LOWER LEGS BILATERALLY) Neurologic/Psychiatric: Alert, Oriented x3, No Motor/Sensory Deficits, Normal Mood/Affect Skin: Warm/Dry Lymphatic: No Adenopathy Results Lab Laboratory Tests 04/17/17 05:00: White Blood Count 13.4H, Red Blood Count 2.60L, Hemoglobin 7.8L, Hematocrit 24L , Mean Corpuscular Volume 94, Mean Corpuscular Hemoglobin 30, Mean Corpuscular Hemoglobin Concent 32, Red Cell Distribution Width 17.2H, Platelet Count 143, Mean Platelet Volume 11.1H, Sodium Level 138, Potassium Level 3.9, Chloride Level 116H, Carbon Dioxide Level 15L, Anion Gap 7, Blood Urea Nitrogen 19H, Creatinine 1.59H, Estimat Glomerular Filtration Rate 31, BUN/Creatinine Ratio 12 , Glucose Level 117H, Calcium Level 7.4L, Total Bilirubin 0.3, Aspartate Amino Transf (AST/SGOT) 22, Alanine Aminotransferase (ALT/SGPT) 12, Alkaline Phosphatase 52, Total Protein 4.9L, Albumin 2.2L Assessment/Plan Assessment/Plan Assess & Plan/Chief Complaint ACUTE GASTROINTESTINAL BLEED SEVERE ANEMIA PNEUMONIA HYPERTENSION WEAKNESS DEPRESSION CONSTIPATION EDEMA ACUTE GASTROINTESTINAL BLEED - DEFER TO DR. DIOP - - HGB STABLE POST TRANSFUSION- PT ON PROTONIX, OCTREOTIDE, MONITOR H AND H SEVERE ANEMIA - STABILIZED -TRANSFUSE PRN - MONITOR HEMOGLOBIN, WAITING ON ANEMIA ANALYZER - MAY NEED TO CONSIDER ERYTHROPOIETIN PNEUMONIA - PT ON IV ANTIBIOTICS - CONTINUE WITH ZOSYN, GIVE VANCOMYCIN AND MONITOR SERIAL CHEST XRAYS. HYPERTENSION - CHRONIC -WILL RESTART HOME MEDICATIONS TODAY PT IS TAKING PO TODAY. WEAKNESS - WILL START PHYSICAL THERAPY TODAY. DEPRESSION -RESTART CELEXA. CONSTIPATION - - MONITOR OUTPUT, PT RECENTLY HAD CDIFF CONTINUE WITH PROBIOTIC EDEMA - STOP IV FLUIDS - GIVE LASIX BETWEEN 1ST AND 2ND UNITS OF BLOOD DVT PROPHYLAXIS - WILL USE SCD'S, BUT WILL NOT GIVE LOVENOX DUE TO HER GI BLEEDING ADITHYA DORADO MD Apr 17, 2017 08:37
[2017-04-17] MEDS ORDERED: diphenhydrAMINE 50 MG/ML INJ (BENADRYL) IVP NR (08:45)
[2017-04-17] MEDS ORDERED: ACETAMINOPHEN 325 MG TABLET/CAPLET (TYLENOL) PO PRN (08:45)
[2017-04-17] MEDS ORDERED: FUROSEMIDE 40 MG/4 ML INJ (LASIX) IVP NR (08:45)
--- NOTE | 2017-04-17 08:48 | Progress Note ---
Subjective Time Seen by Provider: 08:15 Subjective/Events-last exam Patient up about to use the commode. Alert. No signs of distress. Denies any pain. Objective Exam Vital Signs Date Time Temp Pulse Resp B/P (MAP) Pulse Ox O2 Delivery O2 Flow Rate FiO2 04/17/17 07:31 94 Nasal Cannula 2.00 04/17/17 06:00 96.4 70 16 133/70 98 Nasal Cannula 2.00 04/16/17 21:00 Room Air 04/16/17 19:16 98 Nasal Cannula 2.00 04/16/17 17:34 98.8 91 18 178/77 96 Nasal Cannula 2.00 04/16/17 14:47 94 Nasal Cannula 2.00 04/16/17 11:03 Nasal Cannula 2.00 04/16/17 09:00 Room Air I & O 04/17/17 07:00 Intake Total 3460 ml Balance 3460 ml Capillary Refill : General Appearance: No Apparent Distress, WD/WN HEENT: PERRL/EOMI Neck: Non Tender, Supple Respiratory: Chest Non Tender, No Accessory Muscle Use, No Respiratory Distress Cardiovascular: Regular Rate, Rhythm Gastrointestinal: soft, no organomegaly, No distended Extremity: Non Tender, No Calf Tenderness, Pedal Edema (1+) Neurologic/Psychiatric: Alert, Oriented x3, Normal Mood/Affect Skin: Warm/Dry Results Lab Laboratory Tests Test 04/15/17 18:00 04/16/17 05:15 04/17/17 05:00 Range/Units White Blood Count 14.9 H 13.7 H 13.4 H 4.3-11.0 10^3/uL Red Blood Count 3.27 L 2.90 L 2.60 L 4.35-5.85 10^6/uL Hemoglobin 9.8 L 8.7 L 7.8 L 11.5-16.0 G/DL Hematocrit 30 L 27 L 24 L 35-52 % Mean Corpuscular Volume 92 92 94 80-99 FL Mean Corpuscular Hemoglobin 30 30 30 25-34 PG Mean Corpuscular Hemoglobin Concent 33 33 32 32-36 G/DL Red Cell Distribution Width 17.2 H 17.2 H 17.2 H 10.0-14.5 % Platelet Count 154 147 143 130-400 10^3/uL Mean Platelet Volume 11.3 H 11.2 H 11.1 H 7.4-10.4 FL Sodium Level 135 139 138 135-145 MMOL/L Potassium Level 4.1 4.0 3.9 3.6-5.0 MMOL/L Chloride Level 114 H 117 H 116 H 98-107 MMOL/L Carbon Dioxide Level 13 L 17 L 15 L 21-32 MMOL/L Anion Gap 8 5 7 5-14 MMOL/L Blood Urea Nitrogen 23 H 22 H 19 H 7-18 MG/DL Creatinine 1.82 H 1.69 H 1.59 H 0.60-1.30 MG/DL Estimat Glomerular Filtration Rate 26 29 31 BUN/Creatinine Ratio 13 13 12 Glucose Level 244 H 84 117 H 70-105 MG/DL Calcium Level 7.6 L 7.8 L 7.4 L 8.5-10.1 MG/DL Phosphorus Level 1.6 L 2.3-4.7 MG/DL Albumin 2.6 L 2.2 L 2.2 L 3.2-4.5 GM/DL Magnesium Level 1.9 1.8-2.4 MG/DL Total Bilirubin 0.4 0.3 0.1-1.0 MG/DL Aspartate Amino Transf (AST/SGOT) 26 22 5-34 U/L Alanine Aminotransferase (ALT/SGPT) 15 12 0-55 U/L Alkaline Phosphatase 52 52 40-136 U/L Total Protein 5.4 L 4.9 L 6.4-8.2 GM/DL Laboratory Tests 04/17/17 05:00: White Blood Count 13.4H, Red Blood Count 2.60L, Hemoglobin 7.8L, Hematocrit 24L , Mean Corpuscular Volume 94, Mean Corpuscular Hemoglobin 30, Mean Corpuscular Hemoglobin Concent 32, Red Cell Distribution Width 17.2H, Platelet Count 143, Mean Platelet Volume 11.1H, Sodium Level 138, Potassium Level 3.9, Chloride Level 116H, Carbon Dioxide Level 15L, Anion Gap 7, Blood Urea Nitrogen 19H, Creatinine 1.59H, Estimat Glomerular Filtration Rate 31, BUN/Creatinine Ratio 12 , Glucose Level 117H, Calcium Level 7.4L, Total Bilirubin 0.3, Aspartate Amino Transf (AST/SGOT) 22, Alanine Aminotransferase (ALT/SGPT) 12, Alkaline Phosphatase 52, Total Protein 4.9L, Albumin 2.2L Assessment/Plan Assessment/Plan Assessment/Plan Chronic GI bleed- H&H continues to drop. 7.8 and 24, still reports of melena. continue Protonix, octreotide, monitor H/H- repeating in AM. Will discuss patient with Dr. Pappas. Possible EGD Acute blood loss anemia- due to gi bleed also anemia of chronic disease. . Transfuse PRBC as needed. Mian- patient sitting in chair. she states she's feeling well. No new complaints. Hgb drop to 7.8. No family at bedside. Denies n/v fever sweats chills shortness of breath or chest pain. general no acute distress heart reg lungs nonlabored abdomen soft ruq hematoma slightly smaller, no pain on palpation no guarding or rebounding ext nontender normal mood alert gi bleed upper duodenal ulcer and punctate bleed s/p egd with injection of epi follow hgb protonix/carafate follow hgb hematoma abdomen right upper quadrant should continue to resolve HANNAH OLMSTEAD APRN Apr 17, 2017 08:48 ADARSH PAPPAS DO Apr 17, 2017 09:38
--- NOTE | 2017-04-17 11:16 | Occupational Ther Daily Note ---
OT Current Status-Daily Note Subjective Pt alert, getting ready to transfer to [facility]. Pt agreed to therapy. No c/o pain. Mental Status/Objective Patient Orientation: Person, Place, Time, Situation Functional [place] Measure 0=Not Assessed/NA 4=Minimal Assistance 1=Total Assistance 5=Supervision or Setup 2=Maximal Assistance 6=Modified [place] 3=Moderate Assistance 7=Complete [place] Attachments: Oxygen ADL-Treatment Grooming (FIM): 5 (After set up, pt able to complete own oral care, brushing teeth and when handed a cleansing cloth to wash hands.) Toileting (FIM): 4 (CGA in standing when manipulate clothing and to cleanse self.) Transfers (B, C, W/C) (FIM): 4 (CGA using FWW for stand pivot transfer.) Toilet/Commode Transfer (FIM): 4 (Using FWW and CGA pt able to stand pivot transfer to [facility] [place] After therapy, pt sitting in recliner with legs elevated. Call light/phone in reach. All needs met in room. OT Short Term Goals Short Term Goals Toileting(FIM): 5 Toilet/Commode Transfer(FIM): 5 1=Demonstrate adherence to instructed precautions during ADL tasks. 2=Patient will verbalize/demonstrate understanding of assistive devices/ modifications for ADL. 3=Patient will improve strength/tolerance for activity to enable patient to perform ADL's. OT Metal Weather Stripper Goals Detention Goals Time Frame: May 05, 2017 Eating (FIM): 6 Grooming(FIM): 6 Bathing(FIM): 5 Upper Body Dressing(FIM): 6 Lower Body Dressing(FIM): 6 Toileting(FIM): 6 Toilet/Commode Transfer(FIM): 6 Additional Goals: 2-Verbalize Understanding, 3-ImproveStrength/Izzy 1=Demonstrate adherence to instructed precautions during ADL tasks. 2=Patient will verbalize/demonstrate understanding of assistive devices/ modifications for ADL. 3=Patient will improve strength/tolerance for activity to enable patient to perform ADL's. OT Education/Plan Problem List/Assessment Pt would benefit from skilled OT to increase her independence in basic self care and decrease caregiver burden Discharge Recommendations Plan/Recommendations: Continue POC Treatment Plan/Plan of Care Patient would benefit from OT for education, treatment and training to promote independence in ADL's, mobility, safety and/or upper extremity function for ADL' s. Plan of Care: ADL Retraining, Functional Mobility, UE Funct Exercise/Act Treatment Duration: May 05, 2017 Visits Per Week: 5-6 Rehab Potential: Good Time/GCodes Start Time: 10:15 Stop Time: 10:35 Total Time Billed (hr/min): 20 Billed Treatment Time 1 visit-FA 1 (20 min) GENARO COONEY Apr 17, 2017 11:16
--- NOTE | 2017-04-17 11:21 | Physical Therapy Daily Note ---
PT Daily Note-Current Subjective Patient reports she is feeling better and will dismiss to NH this week for continued care. Pain Numeric Pain Scale: 0-No Pain Location: No Pain Reported Mental Status Patient Orientation: Normal For Age Attachments: Oxygen Transfers Functional [place] Measure 0=Not Assessed/NA 4=Minimal Assistance 1=Total Assistance 5=Supervision or Setup 2=Maximal Assistance 6=Modified [place] 3=Moderate Assistance 7=Complete IndependenceIRFPAI Quality Coding Scale 6 Independent with activity with or without an assistive device 5 Patient requires set up or clean up by helper. Patient completes activity by themselves 4 Supervision or touching assist (CGA). [place] provide cues , steadying assist 3 The helper provides less than half the effort to complete the activity 2 The helper provides more than half the effort to complete the activity 1 Dependent. The helper does all the effort to complete an activity 7 Patient refused to complete or attempt activity 9 The patient did not perform the activity before the current illness or injury 88 Not attempted due to Medical conditions or safety concerns Transfers (B, C, W/C) (FIM): 5 Roll Left to Right (QC): 5 Supine to/from Sit: 5 Sit to Lying (QC): 5 Sit to Stand (QC): 5 Chair/Rtg-rb-Shwem Xfer(QC): 5 Gait Training Does the Patient Walk?: Yes Gait (FIM): 2 Distance (FIM): 5=504-17 ft Distance: 100' Walk 50 ft with 2 Turns(QC): 4 Gait Level of Assist: 5 Gait Persons Needed: 1 Gait Assistive Device: FWW slow, steady gait sequence with FWW; assist for O2 tank Exercises Seated Therapy Exercises: Ankle pumps, Long arc quads, Hip flexion Seated Reps: 10 (2 sets) Assessment Patient performed exercises and ambulation to address cardiopulmonary function to improve LOF. Patient is up in recliner with needs met. PT to increase activity as tolerated by patient. PT Short Term Goals Short Term Goals Time Frame: Apr 21, 2017 PT Prison Goals Prison Goals PT Diamond Powder Technician Goals Time Frame: May 12, 2017 Transfers (B,C,W/C) (FIM): 6 Sit to Lying (QC): 6 Lying-Sitting on Side/Bed(QC): 6 Sit to Stand (QC): 6 Chair/Ful-ez-Vqvbl Xfer(QC): 6 Does the Patient Walk: Yes Gait (FIM): 5 Gait distance (FIM): 3=881-26 ft Distance: 50 Walk 50ft with 2 Turns (QC): 6 Walk 150 ft (QC): 6 Gait Level of Assist: 6 Gait Assistive Device: Cane Single Point Stairs (FIM): 2 # of Steps: 3 Stairs Level Of Assist: 4 PT Plan Treatment/Plan Treatment Plan: Continue Plan of Care Treatment Plan: Bed Mobility, Education, Functional Activity Izzy, Functional Strength, Gait, Safety, Therapeutic Exercise, Transfers Treatment Duration: May 12, 2017 Visits Per Week: 5-6 Minutes/Day (M-F): 15-30 Minutes/Day (Sat/Collins): PRN Time/GCodes Time In: 1052 Time Out: 1107 Total Billed Treatment Time: 15 Total Billed Treatment 1 visit FA 15 min MIKE PADILLA PT Apr 17, 2017 11:21
[2017-04-17] MEDS ORDERED: cloNIDine 0.1 MG (CATAPRES) TAB PO NR (12:45)
[2017-04-17] MEDS ORDERED: cloNIDine 0.1 MG (CATAPRES) TAB PO ONE (15:00)
[2017-04-17] MEDS: KCL 20 MEQ TAB (K-DUR) PO SCH (16:35)
[2017-04-17] MEDS: VANCOMYCIN INJECTION 500 MG in NS (IVPB) 100 ML IV SCH (20:52)
[2017-04-18 05:36] VITALS: BP 172/81
[2017-04-18] MEDS: LACTOBACILLUS Acidoph/Bulgar (LACTINEX/FLORANEX) TAB PO SCH ×3 (06:17→16:19)
[2017-04-18] MEDS: OCTREOTIDE (FOR SQ USE) 100 MCG/ML VIAL (SandoSTATIN) SC SCH ×3 (06:24→21:36)
[2017-04-18] MEDS: SUCRALFATE 1 GM (CARAFATE) TAB PO SCH ×4 (06:24→21:36)
[2017-04-18 06:40] LABS: MEAN PLATELET VOLUME 10.8 FL (7.4-10.4); RED BLOOD COUNT 3.57 10^6/uL (4.35-5.85); RED CELL DISTRIBUTION WIDTH 18.1 % (10.0-14.5); WHITE BLOOD COUNT 11.8 10^3/uL (4.3-11.0)
[2017-04-18 06:59] LABS: ALBUMIN 2.3 GM/DL (3.2-4.5); BILIRUBIN,TOTAL 0.5 MG/DL (0.1-1.0); CREATININE SERUM 1.56 MG/DL (0.60-1.30); POTASSIUM 4.3 MMOL/L (3.6-5.0); TOTAL PROTEIN 5.6 GM/DL (6.4-8.2)
[2017-04-18] MEDS: RT-ALBUTEROL/IPRATROPIUM 3 ML (DUONEB) VIAL INH SCH ×4 (07:00→18:48)
[2017-04-18] MEDS: PANTOPRAZOLE 40 MG/10 ML (PROTONIX) VIAL IV SCH ×2 (08:54→21:36)
[2017-04-18] MEDS: meTOproloL SUCCINATE 50 MG (TOPROL XL) TAB PO SCH ×2 (08:54→21:36)
[2017-04-18] MEDS: fluCOnazole (DIFLUCAN) 100 MG TAB PO SCH (08:55)
[2017-04-18] MEDS: amLODIPine 5 MG (NORVASC) TAB PO SCH (08:55)
--- NOTE | 2017-04-18 09:05 | Physical Therapy Daily Note ---
PT Daily Note-Current Subjective States that she is okay. Pain Numeric Pain Scale: 0-No Pain Transfers Functional [place] Measure 0=Not Assessed/NA 4=Minimal Assistance 1=Total Assistance 5=Supervision or Setup 2=Maximal Assistance 6=Modified [place] 3=Moderate Assistance 7=Complete IndependenceIRFPAI Quality Coding Scale 6 Independent with activity with or without an assistive device 5 Patient requires set up or clean up by helper. Patient completes activity by themselves 4 Supervision or touching assist (CGA). [place] provide cues , steadying assist 3 The helper provides less than half the effort to complete the activity 2 The helper provides more than half the effort to complete the activity 1 Dependent. The helper does all the effort to complete an activity 7 Patient refused to complete or attempt activity 9 The patient did not perform the activity before the current illness or injury 88 Not attempted due to Medical conditions or safety concerns Transfers (B, C, W/C) (FIM): 5 Sit to/from Stand: 5 Bed to/from Chair: 5 Gait Training Gait (FIM): 5 Distance (FIM): 6=931-08 ft Distance: 100' Gait Level of Assist: 5 Gait Persons Needed: 1 Gait Assistive Device: FWW Assessment Current Status: Excellent Progress Patient did well with gait but did have some fatigue at the end of ambulation. PT Short Term Goals Short Term Goals Time Frame: Apr 21, 2017 PT On Call Pharmacy Technician Goals Retirement Goals PT Retirement Goals Time Frame: May 12, 2017 Transfers (B,C,W/C) (FIM): 6 Sit to Lying (QC): 6 Lying-Sitting on Side/Bed(QC): 6 Sit to Stand (QC): 6 Chair/Snb-cb-Mgfci Xfer(QC): 6 Does the Patient Walk: Yes Gait (FIM): 5 Gait distance (FIM): 7=539-07 ft Distance: 50 Walk 50ft with 2 Turns (QC): 6 Walk 150 ft (QC): 6 Gait Level of Assist: 6 Gait Assistive Device: Cane Single Point Stairs (FIM): 2 # of Steps: 3 Stairs Level Of Assist: 4 PT Plan Treatment/Plan Treatment Plan: Continue Plan of Care Treatment Plan: Bed Mobility, Education, Functional Activity Izzy, Functional Strength, Gait, Safety, Therapeutic Exercise, Transfers Treatment Duration: May 12, 2017 Visits Per Week: 5-6 Minutes/Day (M-F): 15-30 Minutes/Day (Sat/Collins): PRN Time/GCodes Time In: 845 Time Out: 900 Total Billed Treatment Time: 15' Total Billed Treatment 1, GT x 15 JOSEPH REED PT Apr 18, 2017 09:05
--- NOTE | 2017-04-18 09:13 | Progress Note (SOAP) ---
Subjective Date Seen by Provider: Apr 18, 2017 Time Seen by Provider: 09:55 Subjective/Events-last exam PT REPORTS THAT SHE IS FEELING SIGNIFICANTLY BETTER. SHE REPORTS THAT SHE DOES NOT HAVE ANY ABDOMINAL PAIN. Review of Systems General: No Chills, Fatigue HEENT: No Head Aches Pulmonary: No Dyspnea, No Cough Cardiovascular: No: Chest Pain Gastrointestinal: No: Abdominal Pain, Nausea Neurological: Weakness, No: Confusion Objective Exam Vital Signs Date Time Temp Pulse Resp B/P (MAP) Pulse Ox O2 Delivery O2 Flow Rate FiO2 04/18/17 08:00 92 Nasal Cannula 2.00 04/18/17 07:01 95 Nasal Cannula 2.00 04/18/17 05:36 98.7 70 20 172/81 96 Nasal Cannula 2.00 04/17/17 20:20 92 Nasal Cannula 2.00 04/17/17 19:10 92 Nasal Cannula 2.00 04/17/17 18:36 97.0 66 18 159/69 99 Nasal Cannula 2.00 04/17/17 18:20 97.0 66 18 159/69 99 Mechanical Ventilator 2.00 04/17/17 16:13 97.1 74 18 172/73 98 Nasal Cannula 2.00 04/17/17 15:16 98 04/17/17 14:47 98 Nasal Cannula 2.00 04/17/17 14:20 98.4 66 18 178/77 98 Nasal Cannula 2.00 04/17/17 12:03 98.0 77 18 178/79 Nasal Cannula 2.00 04/17/17 11:40 98.0 82 18 165/76 96 Nasal Cannula 2.00 04/17/17 10:34 96 Nasal Cannula 2.00 I & O 04/18/17 07:00 Intake Total 4290 ml Output Total 4 ml Balance 4286 ml Capillary Refill : General Appearance: No Apparent Distress, WD/WN HEENT: PERRL/EOMI Neck: Full Range of Motion, Supple Respiratory: Chest Non Tender, Lungs Clear, Normal Breath Sounds Cardiovascular: Regular Rate, Rhythm, No Edema Gastrointestinal: normal bowel sounds, non tender, soft Extremity: No Pedal Edema Neurologic/Psychiatric: Alert, Oriented x3, No Motor/Sensory Deficits, Normal Mood/Affect Skin: Warm/Dry Lymphatic: No Adenopathy Results Lab Laboratory Tests 04/17/17 18:30: Hemoglobin 9.9#L, Hematocrit 30L 04/18/17 06:30: Hemoglobin 10.7L, Hematocrit 32L, White Blood Count 11.8H, Red Blood Count 3.57L , Mean Corpuscular Volume 90, Mean Corpuscular Hemoglobin 30, Mean Corpuscular Hemoglobin Concent 33, Red Cell Distribution Width 18.1H, Platelet Count 152, Mean Platelet Volume 10.8H, Sodium Level 139, Potassium Level 4.3, Chloride Level 116H, Carbon Dioxide Level 18L, Anion Gap 5, Blood Urea Nitrogen 19H, Creatinine 1.56H, Estimat Glomerular Filtration Rate 31, BUN/Creatinine Ratio 12 , Glucose Level 95, Calcium Level 8.0L, Total Bilirubin 0.5, Aspartate Amino Transf (AST/SGOT) 32, Alanine Aminotransferase (ALT/SGPT) 18, Alkaline Phosphatase 59, Total Protein 5.6L, Albumin 2.3L Assessment/Plan Assessment/Plan Assess & Plan/Chief Complaint ACUTE GASTROINTESTINAL BLEED SEVERE ANEMIA PNEUMONIA HYPERTENSION WEAKNESS DEPRESSION CONSTIPATION EDEMA ACUTE GASTROINTESTINAL BLEED - DEFER TO DR. DIOP - - HGB STABLE POST TRANSFUSION- PT ON PROTONIX, OCTREOTIDE, MONITOR H AND H SEVERE ANEMIA - STABILIZED -TRANSFUSE PRN - MONITOR HEMOGLOBIN, WAITING ON ANEMIA ANALYZER - MAY NEED TO CONSIDER ERYTHROPOIETIN PNEUMONIA - PT ON IV ANTIBIOTICS - CONTINUE WITH ZOSYN, GIVE VANCOMYCIN AND MONITOR SERIAL CHEST XRAYS. HYPERTENSION - CHRONIC -CONTINUE WITH HOME MEDICATIONS WEAKNESS - WILL CONTINUE WITH PHYSICAL THERAPY DEPRESSION -RESTART CELEXA. CONSTIPATION - - MONITOR OUTPUT, PT RECENTLY HAD CDIFF CONTINUE WITH PROBIOTIC EDEMA - STOP IV FLUIDS - GIVE LASIX BETWEEN 1ST AND 2ND UNITS OF BLOOD DVT PROPHYLAXIS - WILL USE SCD'S, BUT WILL NOT GIVE LOVENOX DUE TO HER GI BLEEDING ADITHYA DORADO MD Apr 18, 2017 09:13
--- NOTE | 2017-04-18 10:12 | Progress Note ---
Subjective Date Seen by Provider: Apr 18, 2017 Time Seen by Provider: 10:08 Subjective/Events-last exam patient sitting in chair. no family at bedside. patient feeling well. Hgb stable after drop yesterday. some swelling lower extremity. no new complaints. denies n/v fever sweats chills shortness of breath or chest pain. Objective Exam Vital Signs Date Time Temp Pulse Resp B/P (MAP) Pulse Ox O2 Delivery O2 Flow Rate FiO2 04/18/17 08:00 92 Nasal Cannula 2.00 04/18/17 07:01 95 Nasal Cannula 2.00 04/18/17 05:36 98.7 70 20 172/81 96 Nasal Cannula 2.00 04/17/17 20:20 92 Nasal Cannula 2.00 04/17/17 19:10 92 Nasal Cannula 2.00 04/17/17 18:36 97.0 66 18 159/69 99 Nasal Cannula 2.00 04/17/17 18:20 97.0 66 18 159/69 99 Mechanical Ventilator 2.00 04/17/17 16:13 97.1 74 18 172/73 98 Nasal Cannula 2.00 04/17/17 15:16 98 04/17/17 14:47 98 Nasal Cannula 2.00 04/17/17 14:20 98.4 66 18 178/77 98 Nasal Cannula 2.00 04/17/17 12:03 98.0 77 18 178/79 Nasal Cannula 2.00 04/17/17 11:40 98.0 82 18 165/76 96 Nasal Cannula 2.00 04/17/17 10:34 96 Nasal Cannula 2.00 I & O 04/18/17 06:59 Intake Total 4290 ml Output Total 4 ml Balance 4286 ml Capillary Refill : General Appearance: No Apparent Distress, WD/WN HEENT: PERRL/EOMI Neck: Non Tender, Supple Respiratory: Chest Non Tender, No Accessory Muscle Use, No Respiratory Distress Cardiovascular: Regular Rate, Rhythm Gastrointestinal: soft, no organomegaly, No distended, No guarding, No rebound Extremity: Non Tender, No Calf Tenderness, Pedal Edema (1+) Neurologic/Psychiatric: Alert, Oriented x3, Normal Mood/Affect Skin: Warm/Dry Lymphatic: No Adenopathy Results Lab Laboratory Tests 04/17/17 18:30: Hemoglobin 9.9#L, Hematocrit 30L 04/18/17 06:30: Hemoglobin 10.7L, Hematocrit 32L, White Blood Count 11.8H, Red Blood Count 3.57L , Mean Corpuscular Volume 90, Mean Corpuscular Hemoglobin 30, Mean Corpuscular Hemoglobin Concent 33, Red Cell Distribution Width 18.1H, Platelet Count 152, Mean Platelet Volume 10.8H, Sodium Level 139, Potassium Level 4.3, Chloride Level 116H, Carbon Dioxide Level 18L, Anion Gap 5, Blood Urea Nitrogen 19H, Creatinine 1.56H, Estimat Glomerular Filtration Rate 31, BUN/Creatinine Ratio 12 , Glucose Level 95, Calcium Level 8.0L, Total Bilirubin 0.5, Aspartate Amino Transf (AST/SGOT) 32, Alanine Aminotransferase (ALT/SGPT) 18, Alkaline Phosphatase 59, Total Protein 5.6L, Albumin 2.3L Assessment/Plan Assessment/Plan Assessment/Plan upper gi bleed continue to follow hgb which is stable this am. Acute blood loss anemia- due to gi bleed also anemia of chronic disease. dudodneal ulcer with punctate bleeds s/p egd with epi injections hgb stable Hematoma ruq s/p lap cholecystectomy should resolve on its own. Transfuse PRBC as needed. Follow hgb Continue protonix and carafate ADARSH DIOP DO Apr 18, 2017 10:12
[2017-04-18] MEDS ORDERED: FUROSEMIDE 40 MG/4 ML INJ (LASIX) IVP NR (10:16)
--- NOTE | 2017-04-18 11:33 | Occupational Ther Daily Note ---
OT Current Status-Daily Note Subjective Pt sitting in chair, agrees to treatment. Mental Status/Objective Functional [place] Measure 0=Not Assessed/NA 4=Minimal Assistance 1=Total Assistance 5=Supervision or Setup 2=Maximal Assistance 6=Modified [place] 3=Moderate Assistance 7=Complete [place] ADL-Treatment Nurse aide present in room and would like to weigh pt in bed. Pt transferred chair to bed with CGA using FWW, cues for safety. Sit<-> supine with minimal assistance. Gait to restroom with FWW. Transfer to toilet with CGA. Pt able to manage hygiene requires CGA for balance during clothing management. Pt requires minimal assistance for sit to stand from toilet. Pt washed hands at sink with SBA. Pt moves slowly and requires increased time for mobility and ADL tasks. Pt' s meal tray arrives during session. Pt requests to sit in chair to eat. Transfer to chair with CGA with FWW. Pt required assist to open container, but then able to feed self after set up. Pt sitting in chair with needs met after session. Functional [place] Measure 0=Not Assessed/NA 4=Minimal Assistance 1=Total Assistance 5=Supervision or Setup 2=Maximal Assistance 6=Modified [place] 3=Moderate Assistance 7=Complete IndependenceIRFPAI Quality Coding Scale 6 Independent with activity with or without an assistive device 5 Patient requires set up or clean up by helper. Patient completes activity by themselves 4 Supervision or touching assist (CGA). [place] provide cues , steadying assist 3 The helper provides less than half the effort to complete the activity 2 The helper provides more than half the effort to complete the activity 1 Dependent. The helper does all the effort to complete an activity 7 Patient refused to complete or attempt activity 9 The patient did not perform the activity before the current illness or injury 88 Not attempted due to Medical conditions or safety concerns Eating (FIM): 5 (set up) Eating (QC): 5 Toileting (FIM): 4 Toileting Hygiene (QC): 4 Toilet/Commode Transfer (FIM): 4 Toilet Transfer (QC): 3 OT Short Term Goals Short Term Goals Toileting(FIM): 5 Toilet/Commode Transfer(FIM): 5 1=Demonstrate adherence to instructed precautions during ADL tasks. 2=Patient will verbalize/demonstrate understanding of assistive devices/ modifications for ADL. 3=Patient will improve strength/tolerance for activity to enable patient to perform ADL's. OT Fci Goals Fci Goals Time Frame: May 05, 2017 Eating (FIM): 6 Eating (QC): 6 Groomin Oral Hygiene (QC): 6 Bathing(FIM): 5 Upper Body Dressing(FIM): 6 Lower Body Dressing(FIM): 6 Toileting(FIM): 6 Toileting Hygiene (QC): 6 Toilet/Commode Transfer(FIM): 6 Toilet/Commode Transfer (QC): 6 Additional Goals: 2-Verbalize Understanding, 3-ImproveStrength/Izzy 1=Demonstrate adherence to instructed precautions during ADL tasks. 2=Patient will verbalize/demonstrate understanding of assistive devices/ modifications for ADL. 3=Patient will improve strength/tolerance for activity to enable patient to perform ADL's. OT Education/Plan Problem List/Assessment Pt would benefit from skilled OT to increase her independence in basic self care and decrease caregiver burden Discharge Recommendations Plan/Recommendations: Continue POC Treatment Plan/Plan of Care Patient would benefit from OT for education, treatment and training to promote independence in ADL's, mobility, safety and/or upper extremity function for ADL' s. Plan of Care: ADL Retraining, Functional Mobility, UE Funct Exercise/Act Treatment Duration: May 05, 2017 Visits Per Week: 5-6 Rehab Potential: Good Time/GCodes Start Time: 11:08 Stop Time: 11:23 Total Time Billed (hr/min): 15 Billed Treatment Time 1 visit, ADL(15minutes) TIFFANI UMAÑA OT Apr 18, 2017 11:33
[2017-04-18] MEDS: KCL 20 MEQ TAB (K-DUR) PO SCH (16:19)
[2017-04-18 17:36] VITALS: BP 140/76
[2017-04-18] MEDS: VANCOMYCIN INJECTION 500 MG in NS (IVPB) 100 ML IV SCH (21:37)
[2017-04-19 05:26] VITALS: BP 160/88
[2017-04-19] MEDS: LACTOBACILLUS Acidoph/Bulgar (LACTINEX/FLORANEX) TAB PO SCH (05:34)
[2017-04-19] MEDS: SUCRALFATE 1 GM (CARAFATE) TAB PO SCH (05:34)
[2017-04-19] MEDS: OCTREOTIDE (FOR SQ USE) 100 MCG/ML VIAL (SandoSTATIN) SC SCH (05:35)
[2017-04-19 06:28] LABS: CALCIUM 8.1 MG/DL (8.5-10.1); CREATININE SERUM 1.54 MG/DL (0.60-1.30); POTASSIUM 4.1 MMOL/L (3.6-5.0)
[2017-04-19] MEDS: RT-ALBUTEROL/IPRATROPIUM 3 ML (DUONEB) VIAL INH SCH (07:25)
[2017-04-19] MEDS ORDERED: FUROSEMIDE 40 MG/4 ML INJ (LASIX) IVP NR (08:08)
--- NOTE | 2017-04-19 08:28 | Progress Note ---
Subjective Time Seen by Provider: 08:13 Subjective/Events-last exam Patient resting in chair. Alert with no distress noted. Patient denies any pain. Objective Exam Vital Signs Date Time Temp Pulse Resp B/P (MAP) Pulse Ox O2 Delivery O2 Flow Rate FiO2 04/19/17 07:25 97 Nasal Cannula 2.00 04/19/17 07:20 97 Nasal Cannula 2.00 04/19/17 05:26 97.7 76 22 160/88 94 Nasal Cannula 2.00 04/18/17 23:50 2.00 04/18/17 20:00 2.00 04/18/17 18:49 96 Nasal Cannula 2.00 04/18/17 17:36 100.0 80 24 140/76 97 Nasal Cannula 2.00 04/18/17 14:28 Nasal Cannula 2.00 04/18/17 14:21 98.7 04/18/17 10:34 93 Nasal Cannula 2.00 I & O 04/19/17 07:00 Intake Total 2000 ml Output Total 300 ml Balance 1700 ml Capillary Refill : General Appearance: No Apparent Distress, WD/WN HEENT: PERRL/EOMI Neck: Full Range of Motion, Supple Respiratory: Chest Non Tender, No Accessory Muscle Use, No Respiratory Distress Cardiovascular: Regular Rate, Rhythm Gastrointestinal: normal bowel sounds, non tender, soft, other (hematoma to the RUQ is getting smaller. ) Extremity: No Pedal Edema Neurologic/Psychiatric: Alert, Oriented x3, No Motor/Sensory Deficits, Normal Mood/Affect Skin: Warm/Dry Lymphatic: No Adenopathy Results Lab Laboratory Tests Test 04/17/17 18:30 04/18/17 06:30 04/19/17 05:55 Range/Units Hemoglobin 9.9 #L 10.7 L 11.4 L 11.5-16.0 G/DL Hematocrit 30 L 32 L 34 L 35-52 % White Blood Count 11.8 H 4.3-11.0 10^3/uL Red Blood Count 3.57 L 4.35-5.85 10^6/uL Mean Corpuscular Volume 90 80-99 FL Mean Corpuscular Hemoglobin 30 25-34 PG Mean Corpuscular Hemoglobin Concent 33 32-36 G/DL Red Cell Distribution Width 18.1 H 10.0-14.5 % Platelet Count 152 130-400 10^3/uL Mean Platelet Volume 10.8 H 7.4-10.4 FL Sodium Level 139 139 135-145 MMOL/L Potassium Level 4.3 4.1 3.6-5.0 MMOL/L Chloride Level 116 H 114 H 98-107 MMOL/L Carbon Dioxide Level 18 L 17 L 21-32 MMOL/L Anion Gap 5 8 5-14 MMOL/L Blood Urea Nitrogen 19 H 19 H 7-18 MG/DL Creatinine 1.56 H 1.54 H 0.60-1.30 MG/DL Estimat Glomerular Filtration Rate 31 32 BUN/Creatinine Ratio 12 12 Glucose Level 95 103 70-105 MG/DL Calcium Level 8.0 L 8.1 L 8.5-10.1 MG/DL Total Bilirubin 0.5 0.1-1.0 MG/DL Aspartate Amino Transf (AST/SGOT) 32 5-34 U/L Alanine Aminotransferase (ALT/SGPT) 18 0-55 U/L Alkaline Phosphatase 59 40-136 U/L Total Protein 5.6 L 6.4-8.2 GM/DL Albumin 2.3 L 3.2-4.5 GM/DL Laboratory Tests 04/19/17 05:55: Hemoglobin 11.4L, Hematocrit 34L, Sodium Level 139, Potassium Level 4.1, Chloride Level 114H, Carbon Dioxide Level 17L, Anion Gap 8, Blood Urea Nitrogen 19H, Creatinine 1.54H, Estimat Glomerular Filtration Rate 32, BUN/Creatinine Ratio 12, Glucose Level 103, Calcium Level 8.1L Assessment/Plan Assessment/Plan Assessment/Plan Acute blood loss anemia- due to gi bleed also anemia of chronic disease. duodenal ulcer with punctate bleeds s/p egd with epi injections hgb continues to be stable. H&H- 11.4 and 34 Hematoma RUQ s/p lap cholecystectomy should resolve on its own. Transfuse PRBC as needed. Follow hgb Continue Protonix and Carafate Pappas- patient feeling well without any complaints. She denies any abdominal pain. She is tolerating liquid diet. Patient with no nausea vomiting fever sweats chills shortness of breath or chest pain. Gen. patient's in no acute distress Heart regular Lungs nonlabored breathing Abdomen soft hematoma in the right upper quadrant no change from yesterday Nontender no guarding or rebounding no organomegaly Extremities still some slight edema bilaterally lower extremity Normal mood and affect Alert Patient with assessment as noted above. Patient hemoglobin stable at this time. Would recommend slowly advance diet, ontinue on Protonix and Carafate, follow hemoglobin outpatient HANNAH OLMSTEAD APRN Apr 19, 2017 08:28 ADARSH PAPPAS DO Apr 19, 2017 10:20
[2017-04-19] MEDS: amLODIPine 5 MG (NORVASC) TAB PO SCH (08:34)
[2017-04-19] MEDS: meTOproloL SUCCINATE 50 MG (TOPROL XL) TAB PO SCH (08:34)
[2017-04-19] MEDS: fluCOnazole (DIFLUCAN) 100 MG TAB PO SCH (08:34)
[2017-04-19] MEDS: PANTOPRAZOLE 40 MG/10 ML (PROTONIX) VIAL IV SCH (08:34)
--- NOTE | 2017-04-19 09:09 | Discharge Summary ---
Diagnosis/Chief Complaint Date of Admission Apr 14, 2017 at 09:18 Date of Discharge Admission Diagnosis Admission Diagnosis ACUTE GASTROINTESTINAL BLEED SEVERE ANEMIA PNEUMONIA HYPERTENSION WEAKNESS DEPRESSION CONSTIPATION EDEMA Discharge Diagnosis ACUTE GASTROINTESTINAL BLEED SEVERE ANEMIA PNEUMONIA HYPERTENSION WEAKNESS DEPRESSION CONSTIPATION EDEMA Reason Hospital Visit ACUTE GI BLEEDING - PT WAS ADMITTED TO THE HOSPITAL, STARTED ON PROTONIX, OCTREOTIDE, CARAFATE, AND SURGICAL EVALUATION. PATIENT HAD PERSISTENT BLOOD LOSS, AND PT TO CONTINUE WITH MONITORING IN THE HOSPITAL, ENDED UP WITH REPEAT EGD, INJECTION OF THE ULCERATIONS, WITH IMPROVED SYMPTOMS, Discharge Summary Discharge Physical Examination Allergies: Coded Allergies: codeine (Verified Allergy, Unknown, 12/18/08) morphine (Verified Allergy, Unknown, 12/18/08) prednisone (Unverified Allergy, Unknown, 03/19/14) propoxyphene napsylate (Unverified Allergy, Unknown, 03/19/14) sulfamethoxazole (Verified Allergy, Unknown, 12/18/08) trimethoprim (Verified Allergy, Unknown, 12/18/08) Vitals & I&Os Vital Signs Date Time Temp Pulse Resp B/P (MAP) Pulse Ox O2 Delivery O2 Flow Rate FiO2 04/19/17 10:45 76 22 160/88 97 Nasal Cannula 2.00 04/19/17 05:26 97.7 General Appearance: Alert, Oriented X3, Cooperative HEENT: Atraumatic, EOMI, Mucous Memb Moist/[place] Respiratory: Clear to Auscultation, Normal Air Movement Cardiovascular: Regular Rate Abdominal: Normal Bowel Sounds, Soft, Other (HEMATOMA RIGHT LATERAL ABDOMEN) Skin: No Rashes, No Breakdown Neuro: Cranial Nerves 3-12 NL Psych/Mental Status: Mental Status NL, Mood NL Hospital Course ACUTE GASTROINTESTINAL BLEED SEVERE ANEMIA PNEUMONIA HYPERTENSION WEAKNESS DEPRESSION CONSTIPATION EDEMA ACUTE GASTROINTESTINAL BLEED - DEFER TO DR. DIOP - - HGB STABLE POST TRANSFUSION- PT ON PROTONIX, OCTREOTIDE, MONITOR H AND H SEVERE ANEMIA - STABILIZED - MAY NEED TO CONSIDER ERYTHROPOIETIN AN OUTPATIENT. PNEUMONIA - IMPROVED. HYPERTENSION - CHRONIC -CONTINUE WITH HOME MEDICATIONS WEAKNESS - WILL CONTINUE WITH PHYSICAL THERAPY DEPRESSION -RESTARTED CELEXA. CONSTIPATION - - MONITOR OUTPUT, PT RECENTLY HAD CDIFF CONTINUE WITH PROBIOTIC EDEMA - STOPPED - CONTINUE WITH TREATMENT OF LASIX DVT PROPHYLAXIS - WILL USE SCD'S, BUT WILL NOT GIVE LOVENOX DUE TO HER GI BLEEDING Pending Labs Discharge Condition at discharge IMPROVED Instructions to patient/family Please see electonic discharge instructions given to patient. Discharge Medications Reviewed and agree with Discharge Medication list on patient's Discharge Instruction sheet ADITHYA DORADO MD Apr 19, 2017 09:09
[2017-04-19] MEDS ORDERED: SUCR1TAB PO (09:16)
[2017-04-19] MEDS ORDERED: ACID1TAB PO (09:16)
[2017-04-19] MEDS ORDERED: CHOL4PAC16 PO (09:16)
[2017-04-19] MEDS ORDERED: FLUC100T6 PO (09:16)
[2017-04-19] MEDS ORDERED: PANT40TA2 PO (09:16)
--- NOTE | 2017-04-19 09:20 | Discharge Inst-Skilled Nursing ---
Discharge Inst-Skilled NF Patient Instructions Patient Problems: GI BLEEDING WEAKNESS RENAL FAILURE HYPERTENSION ANEMIA Consult/Follow Up/Orders Follow Up Appt.: 1 WEEK WITH [facility] Skilled NF Admit to: [facility] Certification (SNF) I certify that SNF services are required to be given on an inpatient basis because of the above named patient's need for long term care on a continuing basis for the conditions(s) for which he/she was receiving inpatient hospital services prior to his/her transfer to the SNF. Alf Facility Order: Nursing Services, Informatics Scientist-Evaluate & Treat, Physical Therapy-Evaluate & Treat Discharge Diet: Regular Diet Daily Activity as Tolerated: Yes New & Resume Previous Orders Adithya Garcia Apr 19, 2017 09:19 Medication List: Active Scripts Active Protonix (Pantoprazole Sodium) 40 Mg Tablet.dr 40 Mg PO BID 30 Days Floranex Tablet (L. Acidophilus/Bulgaricus) 1 Each Tablet 1 Tab.chew PO AC 30 Days Sucralfate 1 Gm Tablet 1 Gm PO ACHS 30 Days DISSOLVE THE TABLET IN 10ML OF WATER, THEN GIVE 30 MINUTES BEFORE MEALS AND BEFORE BED Fluconazole 100 Mg Tablet 100 Mg PO DAILY 4 Days Questran Packet (Cholestyramine (with Sugar)) 4 Gm Powd.pack 4 Gm PO BID PRN 30 Days Reported Vitamin D3 (Cholecalciferol (Vitamin D3)) 5,000 Unit Tablet 5,000 Unit PO DAILY Vitamin C (Ascorbic Acid) 1,000 Mg Tablet 1,000 Mg PO DAILY Multiple Vitamin (Multivitamin with Minerals) 1 Each Tablet 1 Tab PO DAILY Magnesium (Magnesium Oxide) 400 Mg Tablet 400 Mg PO BID Furosemide 40 Mg Tablet 40 Mg PO DAILY Lomotil 2.5-0.025 mg Tablet (Diphenoxylate HCl/Atropine) 1 Each Tablet 1 Tab PO Q6H PRN Acetaminophen ER (Acetaminophen) 650 Mg Tablet.er 650 Mg PO Q6H PRN Zofran (Ondansetron HCl) 4 Mg Tab 4 Mg PO Q6H PRN Simethicone 80 Mg Tab.chew 160 Mg PO TID PRN START DATE 04-15-17 TAKES 2 (80MG) TABLETS Simethicone 80 Mg Tab.chew 160 Mg PO TID START DATE 03-31-17 END DATE 04-14-17 TAKES 2 (80MG) TABLETS Nystatin 15 Gm Cream..g. TP TID 10 Days 10 DAY THERAPY STOP DATE 04-14-17 Amlodipine Besylate 5 Mg Tablet 5 Mg PO DAILY Lovastatin 40 Mg Tablet 40 Mg PO HS Citalopram HBr (Citalopram Hydrobromide) 10 Mg Tablet 10 Mg PO DAILY Ferrous Sulfate 325 Mg Tablet 325 Mg PO BID Fenofibric Acid (Fenofibric Acid (Choline)) 135 Mg Capsule.dr 135 Mg PO HS Metoprolol Succinate 50 Mg Tab.er.24h 50 Mg PO BID Aspirin Ec 325 Mg (Aspirin) 325 Mg Tabec 325 Mg PO DAILY Lab results: Laboratory Tests Test 04/19/17 05:55 Range/Units Hemoglobin 11.4 L 11.5-16.0 G/DL Hematocrit 34 L 35-52 % Sodium Level 139 135-145 MMOL/L Potassium Level 4.1 3.6-5.0 MMOL/L Chloride Level 114 H 98-107 MMOL/L Carbon Dioxide Level 17 L 21-32 MMOL/L Anion Gap 8 5-14 MMOL/L Blood Urea Nitrogen 19 H 7-18 MG/DL Creatinine 1.54 H 0.60-1.30 MG/DL Estimat Glomerular Filtration Rate 32 BUN/Creatinine Ratio 12 Glucose Level 103 70-105 MG/DL Calcium Level 8.1 L 8.5-10.1 MG/DL My orders: Orders - ADITHYA GARCIA MD Furosemide Injection (Lasix Injection) (04/18/17 10:16) Patient Visit (04/18/17 ) Gait Training, Ea 15 Min (04/18/17 ) Furosemide Injection (Lasix Injection) (04/19/17 08:08) Attending Discharge (04/19/17 09:10) ADITHYA GARCIA MD Apr 19, 2017 09:20
[2017-04-19 10:45] VITALS: BP 160/88
--- NOTE | 2017-04-19 12:05 | Therapy Team Discharge Summary ---
Therapy Discharge Summary Discharge Recommendations Date of Discharge Apr 19, 2017 at 10:45 Therapy D/C Recommendations: 24 hr Supervision, Correction (TCU/NH) Occupational Therapy Pt. has been seen by occupational therapy to increase overall strength and independence. At discharge, pt. is able to complete ADL transfers with min assist. Goals not met, as pt. requires CGA/min assist with most tasks. Pt. is able to complete toileting tasks with CGA. Pt. is discharging to [facility] to continue with strengthening tasks, and ADL skills training. PT Tire Trucker Goals Alf Goals PT Alf Goals Time Frame: May 12, 2017 Transfers (B,C,W/C) (FIM): 6 Sit to Lying (QC): 6 Lying-Sitting on Side/Bed(QC): 6 Sit to Stand (QC): 6 Chair/Icu-yc-Sfyws Xfer(QC): 6 Does the Patient Walk: Yes Gait (FIM): 5 Gait distance (FIM): 1=264-94 ft Distance: 50 Walk 50ft with 2 Turns (QC): 6 Walk 150 ft (QC): 6 Gait Level of Assist: 6 Gait Assistive Device: Cane Single Point Stairs (FIM): 2 # of Steps: 3 Stairs Level Of Assist: 4 OT Tire Trucker Goals Tire Trucker Goals Time Frame: May 05, 2017 Eating (FIM): 6 (not met. set up) Eating (QC): 6 (not met) Groomin (not met) Oral Hygiene (QC): 6 (not met) Bathing(FIM): 5 (not met) Upper Body Dressing(FIM): 6 (not met) Lower Body Dressing(FIM): 6 (not met) Toileting(FIM): 6 (not met) Toileting Hygiene (QC): 6 (not met) Toilet/Commode Transfer(FIM): 6 (not met) Toilet/Commode Transfer (QC): 6 (not met) Additional Goals: 2-Verbalize Understanding, 3-ImproveStrength/Izzy 1=Demonstrate adherence to instructed precautions during ADL tasks. 2=Patient will verbalize/demonstrate understanding of assistive devices/ modifications for ADL. 3=Patient will improve strength/tolerance for activity to enable patient to perform ADL's. TORIBIO MARTIN OT Apr 19, 2017 12:05
--- NOTE | 2017-04-19 14:15 | Physical Therapy Daily Note ---
PT Daily Note-Current Subjective Pt sitting in recliner upon arrival. Pt reports discharging today, confirmed with Nursing and Fire Control Technician B that pt will leave before lunch. Pt asks for assistance to BSC & CGA for nurse to change bandage. Pain Location: No Pain Reported Mental Status Patient Orientation: Person, Place, Situation Attachments: Oxygen Transfers Functional [place] Measure 0=Not Assessed/NA 4=Minimal Assistance 1=Total Assistance 5=Supervision or Setup 2=Maximal Assistance 6=Modified [place] 3=Moderate Assistance 7=Complete IndependenceIRFPAI Quality Coding Scale 6 Independent with activity with or without an assistive device 5 Patient requires set up or clean up by helper. Patient completes activity by themselves 4 Supervision or touching assist (CGA). [place] provide cues , steadying assist 3 The helper provides less than half the effort to complete the activity 2 The helper provides more than half the effort to complete the activity 1 Dependent. The helper does all the effort to complete an activity 7 Patient refused to complete or attempt activity 9 The patient did not perform the activity before the current illness or injury 88 Not attempted due to Medical conditions or safety concerns Sc[place]in Sit to/from Stand: 4 Sit to Stand (QC): 4 Weight Bearing Weight Bearing Restriction: Full Weight Bearing Location Restriction: LE Bilateral Gait Training Does the Patient Walk?: Yes Distance (FIM): 1=up to 49 ft Distance: 5' Gait Level of Assist: 4 Gait Persons Needed: 1 Gait Assistive Device: FWW Pt fatigues easy and needs rest break. Treatments Pt transfers from recliner to standing using FWW at CGA-Min A. Pt ambulates to BSC. Nursing arrives and asks for assistance spotting pt while standing so Nurse could change bandage. Pt then transfers back to recliner to rest. Fire Control Technician B advises pt will leave before lunch. Pt rest in recliner with all needs met at end of tx. Assessment Current Status: Fair Progress Pt fatigues easy and needs rest break. PT Short Term Goals Short Term Goals Time Frame: Apr 21, 2017 PT Public Works Inspector Goals Prison Goals PT Public Works Inspector Goals Time Frame: May 12, 2017 Transfers (B,C,W/C) (FIM): 6 Sit to Lying (QC): 6 Lying-Sitting on Side/Bed(QC): 6 Sit to Stand (QC): 6 Chair/Mdp-lm-Enzba Xfer(QC): 6 Does the Patient Walk: Yes Gait (FIM): 5 Gait distance (FIM): 4=552-81 ft Distance: 50 Walk 50ft with 2 Turns (QC): 6 Walk 150 ft (QC): 6 Gait Level of Assist: 6 Gait Assistive Device: Cane Single Point Stairs (FIM): 2 # of Steps: 3 Stairs Level Of Assist: 4 PT Plan Problem List Problem List: Activity Tolerance, Functional Strength, Safety, Balance, Gait, Transfer Treatment/Plan Treatment Plan: Continue Plan of Care Treatment Plan: Bed Mobility, Education, Functional Activity Izzy, Functional Strength, Gait, Safety, Therapeutic Exercise, Transfers Treatment Duration: May 12, 2017 Visits Per Week: 5-6 Minutes/Day (M-F): 15-30 Minutes/Day (Sat/[place]): PRN Safety Risks/Education Patient Education: Gait Training, Transfer Techniques, Correct Positioning, Safety Issues Teaching Recipient: Patient Teaching Methods: Discussion Response to Teaching: Verbalize Understanding Time/GCodes Time In: 830 Time Out: 845 Total Billed Treatment Time: 15 Total Billed Treatment visit, FA (15m) MARISA OSUNA PTA Apr 19, 2017 14:15
--- NOTE | 2017-04-20 12:12 | Therapy Team Discharge Summary ---
Therapy Discharge Summary Discharge Recommendations Date of Discharge Apr 19, 2017 at 10:45 Therapy D/C Recommendations: 24 hr Supervision, Chcf (TCU/NH) Physical Therapy This patient was seen for skilled PT intervention on [facility] after acute stay post GI bleed. Upon initial PT evaluation, she was min assist with transfers and ambulated 50 ft with FWW with CGA. Treatment consisted of functional strength and mobility to progress her ability to mobilize with decreased assistance. At [facility], she continued to require min assist with transfers and was able to ambulate 100 ft with FWW with CGA (on day of DC only walked 5 ft). Her balance remains at a fair level for dynamic standing mobility. Pt would benefit from continued therapy services to progress her level of independence. Goals not fully met at this time. Pt to discharge to [facility] for continued asssit with her care as well as therapy services. Will DC from PT at this facility at this time. PT Shelter Goals Shelter Goals PT Edi Architect Goals Time Frame: May 12, 2017 Transfers (B,C,W/C) (FIM): 6 Sit to Lying (QC): 6 (unmt) Lying-Sitting on Side/Bed(QC): 6 (unmet) Sit to Stand (QC): 6 ([place]) Chair/Cmw-iu-Jzuwj Xfer(QC): 6 (unmet) Does the Patient Walk: Yes Gait (FIM): 5 (unmet) Gait distance (FIM): 1=717-60 ft Distance: 50 Walk 50ft with 2 Turns (QC): 6 (unmet) Walk 150 ft (QC): 6 (unmet) Gait Level of Assist: 6 Gait Assistive Device: Cane Single Point Stairs (FIM): 2 (NT) # of Steps: 3 Stairs Level Of Assist: 4 OT Shelter Goals Shelter Goals Time Frame: May 05, 2017 Eating (FIM): 6 (not met. set up) Eating (QC): 6 (not met) Groomin (not met) Oral Hygiene (QC): 6 (not met) Bathing(FIM): 5 (not met) Upper Body Dressing(FIM): 6 (not met) Lower Body Dressing(FIM): 6 (not met) Toileting(FIM): 6 (not met) Toileting Hygiene (QC): 6 (not met) Toilet/Commode Transfer(FIM): 6 (not met) Toilet/Commode Transfer (QC): 6 (not met) Additional Goals: 2-Verbalize Understanding, 3-ImproveStrength/Izzy 1=Demonstrate adherence to instructed precautions during ADL tasks. 2=Patient will verbalize/demonstrate understanding of assistive devices/ modifications for ADL. 3=Patient will improve strength/tolerance for activity to enable patient to perform ADL's. GENARO CORDON PT Apr 20, 2017 12:12
== END 2017-04-19 10:45 | DRG 377 ==
LOC: 4TH 04-14 09:18 → ENPENDDIS 04-19 09:30
PROVIDERS: ADMIT Family Medicine; ATTEND Family Medicine
DX: K29.71 Gastritis, unspecified, with bleeding (principal); K25.4 Chronic or unspecified gastric ulcer with hemorrhage; J18.9 Pneumonia, unspecified organism; D62 Acute posthemorrhagic anemia; K57.92 Diverticulitis of intestine, part unspecified, without perforation or abscess without bleeding; N39.0 Urinary tract infection, site not specified; R53.1 Weakness; Z66 Do not resuscitate; I12.9 Hypertensive chronic kidney disease with stage 1 through stage 4 chronic kidney disease, or unspecified chronic kidney disease; N18.9 Chronic kidney disease, unspecified; F32.9 Major depressive disorder, single episode, unspecified; K59.00 Constipation, unspecified; R60.9 Edema, unspecified
CPT/HCPCS: 36415; 71020; 80048; 80053; 80069; 80202; 83735; 85014; 85018; 85027; 86850; 86900; 86901; 86920; 94640; 94760

== ENCOUNTER → 2017-05-29 | Outpatient (CLI) | payer MEDICARE, OTHER ==
[~2017-05-29] MED LIST changes: +ACID1TAB PO; +ASCO-262 PO; +BUDE10.2 IH; +FLUC100T6 PO; +METO-370 PO; +PANT40TA2 PO; +POTA-51 PO; +SUCR1TAB PO
[2017-05-29 10:42] LABS: BASOPHILS # (AUTO) 0.1 10^3/uL (0.0-0.1); BASOPHILS % (AUTO) 1 % (0-10); EOSINOPHILS # (AUTO) 0.2 10^3/uL (0.0-0.3); EOSINOPHILS % (AUTO) 3 % (0-10); LYMPHOCYTES # (AUTO) 2.2 X 10^3 (1.0-4.0); LYMPHOCYTES % (AUTO) 31 % (12-44); MEAN CORPUSCULAR HEMOGLOBIN 30 PG (25-34); MEAN CORPUSCULAR HGB CONC 31 G/DL (32-36); MEAN CORPUSCULAR VOLUME 95 FL (80-99); MEAN PLATELET VOLUME 12.2 FL (7.4-10.4); MONOCYTES # (AUTO) 0.5 X 10^3 (0.0-1.0); MONOCYTES % (AUTO) 7 % (0-12); NEUTROPHILS # (AUTO) 4.1 X 10^3 (1.8-7.8); NEUTROPHILS % (AUTO) 58 % (42-75); PLATELET COUNT 221 10^3/uL (130-400); RED BLOOD COUNT 3.28 10^6/uL (4.35-5.85); RED CELL DISTRIBUTION WIDTH 16.2 % (10.0-14.5); WHITE BLOOD COUNT 6.9 10^3/uL (4.3-11.0)
[2017-05-29 10:58] LABS: ALBUMIN 3.7 GM/DL (3.2-4.5); CREATININE SERUM 2.5 MG/DL (0.60-1.30); PHOSPHORUS 3.9 MG/DL (2.3-4.7)
[2017-05-29 15:06] LABS: BILIRUBIN,URINE NEGATIVE (NEGATIVE); KETONES,URINE NEGATIVE (NEGATIVE); LEUKOCYTE ESTERASE ,URINE 3+ (NEGATIVE); NITRITE,URINE NEGATIVE (NEGATIVE); PH,URINE 5 (5-9); PROTEIN,URINE 2+ (NEGATIVE); UROBILINOGEN,URINE NORMAL (NORMAL)
[2017-05-29 15:24] LABS: WBC,URINE TNTC /HPF
[2017-05-29 15:26] LABS: PROTEIN/CREATININE RATIO 0.57
[2017-05-30 07:44] LABS: CALCIUM PARA THYROID HORMONE 9.9 mg/dL (8.5-10.5)
== END ==
LOC: CVS 10:33
PROVIDERS: ATTEND Nurse Practitioner
DX: E83.52 Hypercalcemia (principal); E78.5 Hyperlipidemia, unspecified; R73.01 Impaired fasting glucose; I12.9 Hypertensive chronic kidney disease with stage 1 through stage 4 chronic kidney disease, or unspecified chronic kidney disease; N18.3 Chronic kidney disease, stage 3 (moderate); D63.1 Anemia in chronic kidney disease; E55.9 Vitamin D deficiency, unspecified; R80.9 Proteinuria, unspecified; N25.0 Renal osteodystrophy; N39.0 Urinary tract infection, site not specified
CPT/HCPCS: 80069; 81000; 82570; 82728; 83540; 83970; 84156; 85025; 87088; 87186

== ENCOUNTER 2017-06-12 11:00 | Outpatient (CLI) | payer MEDICARE, OTHER ==
[~2017-06-12] VITALS: Ht 167.6 cm; Wt 54.4 kg
[~2017-06-12 11:00] MED LIST changes: -ASCO-262 PO; -BUDE10.2 IH; -POTA-51 PO
[2017-06-12] MEDS ORDERED: PANT40TA2 PO ×2 (11:05)
[2017-06-12] MEDS ORDERED: SUCR1TAB PO ×2 (11:05)
[2017-06-12] MEDS ORDERED: ASCO-262 PO ×2 (11:08)
[2017-06-12] MEDS ORDERED: POTA-51 PO ×2 (11:08)
[2017-06-12] MEDS ORDERED: BUDE10.2 IH ×2 (11:08)
== END 2017-06-12 11:56 ==
LOC: PREOP 11:00
PROVIDERS: ATTEND Surgery
DX: Z01.818 Encounter for other preprocedural examination (principal); K92.2 Gastrointestinal hemorrhage, unspecified

== ENCOUNTER 2017-06-13 08:03 | Day surgery (SDC) | payer MEDICARE, OTHER ==
[~2017-06-13] VITALS: Ht 167.6 cm; Wt 54.4 kg
[~2017-06-13 08:03] MED LIST changes: +ASCO-262 PO; +BUDE10.2 IH; -METO-370 PO; +POTA-51 PO
[2017-06-13] MEDS ORDERED: LACTATED RINGERS 1,000 ML IV STA (08:15)
[2017-06-13] MEDS ORDERED: HURRICAINE EXT TUBE (BENZOCAINE) XX PRN (08:15)
[2017-06-13 08:33] VITALS: BP 184/59
[2017-06-13] MEDS ORDERED: proPOfol 200 MG/20 ML (DIPRIVAN) VIAL IV ONE (08:51)
--- NOTE | 2017-06-13 09:26 | Progress Note-Post Operative ---
Post-Operative Progess Note Surgeon (s)/Frame Expander (s) Surgeon ADARSH DIOP DO Frame Expander: na Pre-Operative Diagnosis history duodenitis gastric ulcer Post-Operative Diagnosis mucosal change of stomach, hiatal hernia, reflux esophagitis Procedure & Operative Findings Date of Procedure 06/13/17 Procedure Performed/Findings egd c biopsies Anesthesia Type per general manager road production Estimated Blood Loss Estimated blood loss (mL): scant Specimens/Packing Specimens Removed antrum and ge junction ADARSH DIOP DO Jun 13, 2017 9:26 am
--- NOTE | 2017-06-13 09:28 | Discharge Inst-Simple/Standard ---
Discharge Inst-Standard Discharge Medications New, Converted or Re-Newed RX: RX on Chart Patient Instructions/Follow Up Plan of Care/Instructions/FU: 2 weeks dionicio Activity as Tolerated: Yes Discharge Diet: Regular Diet ADARSH DIOP DO Jun 13, 2017 9:28 am
[2017-06-13 09:35] VITALS: BP 171/74
[2017-06-13 10:05] VITALS: BP 174/77
[2017-06-13 10:45] VITALS: BP 174/77
--- NOTE | 2017-06-13 14:48 | OPERATIVE REPORT ---
DATE OF SERVICE: 06/13/2017 PREOPERATIVE DIAGNOSES: History of gastric ulcer, duodenitis and history of gastrointestinal bleed. POSTOPERATIVE DIAGNOSES: Some mucosal changes of the stomach, hiatal hernia and reflux esophagitis. SURGEON: Adarsh Pappas DO ANESTHESIA: Per BLOCK CAPTAIN. PROCEDURE: EGD with biopsies. INDICATIONS: The patient is an 86-year-old female who previously was admitted for upper GI bleed. She had endoscopies at that time. She was found to have findings as above. She was recommended to have a repeat EGD to reevaluate. She understands risks and benefits of procedure and wished to proceed with the procedure. Consent was signed in the chart. PROCEDURE: The patient was taken to the endoscopy suite, placed in left lateral recumbent position. Timeout was performed. Scope was inserted into the mouth, down the esophagus, stomach and into the duodenum without difficulty. There were no polyps, masses or ulcerations within the duodenum. The scope was slowly retracted back into the stomach where it was further insufflated. Some slight mucosal changes of the stomach were present. Biopsy was obtained. Scope was then retroflexed and noting a hiatal hernia. There were no polyps, masses or ulcerations. Scope was slowly returned to its normal position, slowly withdrawn. At the GE junction, some slight erythematous changes. Biopsy of the GE junction was obtained. Scope was then slowly retracted back until completely removed, noting no other pathology. The patient tolerated the procedure well without any complications. She was taken to the recovery room in stable condition. RECOMMENDATIONS: The patient will need to follow up on biopsy results in approximately 2 weeks. No evidence of any active bleeding or any active ulcers. We will continue on Protonix and Carafate. If she has any problems, we would recommend repeat EGD at that time. Job ID: [id number] DocumentID: [id number] Dictated Date: 06/13/2017 09:31:40 Welt Treater Date: 06/13/2017 10:01:52 Dictated By: ADARSH PAPPAS DO
== END 2017-06-13 10:45 | disposition home or self-care (01) ==
LOC: ENDO 08:03
PROVIDERS: ATTEND Surgery
DX: K21.0 Gastro-esophageal reflux disease with esophagitis (principal); K44.9 Diaphragmatic hernia without obstruction or gangrene; Z87.11 Personal history of peptic ulcer disease; I25.10 Atherosclerotic heart disease of native coronary artery without angina pectoris; I73.9 Peripheral vascular disease, unspecified; I10 Essential (primary) hypertension; I69.354 Hemiplegia and hemiparesis following cerebral infarction affecting left non-dominant side; F41.9 Anxiety disorder, unspecified; Z87.891 Personal history of nicotine dependence; Z79.899 Other long term (current) drug therapy

== ENCOUNTER 2017-06-29 09:25 | Outpatient (RCR) | payer MEDICARE, OTHER ==
[2017-06-29] VITALS (9 sets, daily range): BP systolic 118–165; BP diastolic 59–81
[~2017-06-29] VITALS: Ht 167.6 cm; Wt 54.4 kg
[2017-06-29] MEDS ORDERED: diphenhydrAMINE 25 MG TAB (BENADRYL) PO ONE ×2 (09:29→10:15)
[2017-06-29] MEDS ORDERED: ACETAMINOPHEN 500 MG TAB (TYLENOL) ONE (09:30)
[2017-06-29] MEDS ORDERED: NS IV 500 ML 500 ML IV SCH (09:45)
[2017-06-29] MEDS ORDERED: ACETAMINOPHEN 500 MG TAB (TYLENOL) PO NR (09:56)
[2017-06-29] MEDS ORDERED: diphenhydrAMINE 50 MG/ML INJ (BENADRYL) IV NR (09:57)
[2017-06-29] MEDS ORDERED: FUROSEMIDE 40 MG/4 ML INJ (LASIX) IV SCH (10:00)
== END 2017-07-15 | disposition home or self-care (01) ==
LOC: SDC 09:25
PROVIDERS: ATTEND Family Medicine
DX: D64.9 Anemia, unspecified (principal); N18.9 Chronic kidney disease, unspecified
CPT/HCPCS: 36415; 36430; 82668; 85014; 85018; 86850; 86900; 86901; 86920

== ENCOUNTER 2017-07-14 05:37 | Outpatient (CLI) | payer MEDICARE, OTHER ==
[~2017-07-14] VITALS: Ht 167.6 cm; Wt 54.4 kg
== END 2017-07-14 11:22 ==
LOC: PREOP 05:37
PROVIDERS: ATTEND Surgery
DX: Z01.818 Encounter for other preprocedural examination (principal); D50.9 Iron deficiency anemia, unspecified

== ENCOUNTER 2017-07-18 10:12 | Day surgery (SDC) | payer MEDICARE, OTHER ==
[~2017-07-18] VITALS: Ht 167.6 cm; Wt 54.4 kg
[2017-07-18 10:25] VITALS: BP 143/70
[2017-07-18] MEDS ORDERED: LACTATED RINGERS 1,000 ML IV ONE ×2 (10:30→10:33)
[2017-07-18] MEDS ORDERED: PROPOFOL INJECTION 50 ML IV ONE (13:14)
--- NOTE | 2017-07-18 13:53 | Progress Note-Pre Operative ---
Pre-Operative Progress Note H&P Reviewed The H&P was reviewed, patient examined and no changes noted. Date Seen by Provider: Jul 18, 2017 Time Seen by Provider: 13:52 Date H&P Reviewed: Jul 18, 2017 Time H&P Reviewed: 13:52 Pre-Operative Diagnosis: Iron deficiency anemia ADARSH DIOP DO Jul 18, 2017 13:52
--- NOTE | 2017-07-18 14:46 | Progress Note-Post Operative ---
Post-Operative Progess Note Surgeon (s)/Animal Nursery Worker (s) Surgeon ADARSH DIOP DO Animal Nursery Worker: n/a Pre-Operative Diagnosis Iron deficiency anemia Post-Operative Diagnosis diverticulosis, sigmoid polyp Procedure & Operative Findings Date of Procedure 07/18/17 Procedure Performed/Findings colonoscopy cold bx polypectomy Anesthesia Type per drying oven tender Estimated Blood Loss Estimated blood loss (mL): scant Specimens/Packing Specimens Removed sigmoid colon polyp ADARSH DIOP DO Jul 18, 2017 14:46
--- NOTE | 2017-07-18 14:47 | Discharge Inst-Simple/Standard ---
Discharge Inst-Standard Patient Instructions/Follow Up Plan of Care/Instructions/FU: 2 weeks Mian Activity as Tolerated: Yes Discharge Diet: Regular Diet ADARSH DIOP DO Jul 18, 2017 14:47
[2017-07-18 15:00] VITALS: BP 131/54
[2017-07-18 15:20] VITALS: BP 115/68
[2017-07-18 15:30] VITALS: BP 115/68
--- NOTE | 2017-07-19 06:13 | OPERATIVE REPORT ---
DATE OF SERVICE: 07/18/2017 PREOPERATIVE DIAGNOSIS: Iron deficiency anemia. POSTOPERATIVE DIAGNOSIS: Diverticulosis, sigmoid colon polyp. PROCEDURE: Colonoscopy with cold biopsy polypectomy. SURGEON: Adarsh Pappas DO ANESTHESIA: Per PORCELAIN MIXER. ESTIMATED BLOOD LOSS: Scant. SPECIMENS: Sigmoid colon polyp. INDICATIONS: The patient is an 86-year-old female with iron deficiency anemia. She has previous upper gastrointestinal bleed, but she has not had a colonoscopy. She understands the risks and benefits of procedure and wished to proceed with procedure. Consent was on chart. DESCRIPTION OF PROCEDURE: The patient was taken to the endoscopy suite, placed in left lateral recumbent position. Timeout was performed. Digital rectal exam was performed and there were no palpable polyps, masses or ulcerations. Scope was inserted in the rectum and advanced all the way to the cecum with some slight difficulty due to other redundancy colon and significant diverticulosis. The cecum was identified. Prep was adequate. Scope was then slowly retracted back. There were no polyps, mass or ulcerations within the cecum. There were no polyps, mass or ulcerations within the ascending, transverse and descending colon. Throughout these areas there were diverticulosis present. Scope was continuously retracted back through the sigmoid colon, which a small polyp in the diverticulum was identified. Using cold biopsy forceps, the polyp was biopsied and removed. There was very scant blood from biopsy present. This was irrigated and monitored and seemed to resolve the bleeding. The scope was continued slowly retracted back into the rectum where it was also retroflexed noting no other pathology. Scope was returned to its normal position, slowly withdrawn until completely removed. The patient tolerated the procedure well without any complications. She was taken to the recovery room in stable condition. RECOMMENDATIONS: The patient will follow up on pathology in approximately two weeks to discuss pathology results. If she has any problems prior to that, she should be reevaluated at that time. Job ID: [id number] DocumentID: [id number] Dictated Date: 07/18/2017 14:55:14 Driver Salesman Date: 07/19/2017 06:12:16 Dictated By: ADARSH PAPPAS DO
== END 2017-07-18 15:30 | disposition home or self-care (01) ==
LOC: ENDO 10:12
PROVIDERS: ATTEND Surgery
DX: K63.5 Polyp of colon; I25.10 Atherosclerotic heart disease of native coronary artery without angina pectoris; N18.9 Chronic kidney disease, unspecified; Z79.899 Other long term (current) drug therapy; K21.9 Gastro-esophageal reflux disease without esophagitis; I69.354 Hemiplegia and hemiparesis following cerebral infarction affecting left non-dominant side; K57.30 Diverticulosis of large intestine without perforation or abscess without bleeding; J44.9 Chronic obstructive pulmonary disease, unspecified; D50.9 Iron deficiency anemia, unspecified; I48.91 Unspecified atrial fibrillation; I12.9 Hypertensive chronic kidney disease with stage 1 through stage 4 chronic kidney disease, or unspecified chronic kidney disease

== ENCOUNTER → 2017-07-26 | Outpatient (CLI) | payer MEDICARE, OTHER ==
[2017-07-26 17:21] LABS: BASOPHILS # (AUTO) 0.1 10^3/uL (0.0-0.1); BASOPHILS % (AUTO) 1 % (0-10); EOSINOPHILS # (AUTO) 0.2 10^3/uL (0.0-0.3); EOSINOPHILS % (AUTO) 2 % (0-10); LYMPHOCYTES # (AUTO) 1.8 X 10^3 (1.0-4.0); LYMPHOCYTES % (AUTO) 22 % (12-44); MEAN CORPUSCULAR HEMOGLOBIN 29 PG (25-34); MEAN CORPUSCULAR HGB CONC 31 G/DL (32-36); MEAN CORPUSCULAR VOLUME 93 FL (80-99); MEAN PLATELET VOLUME 10.3 FL (7.4-10.4); MONOCYTES # (AUTO) 0.4 X 10^3 (0.0-1.0); MONOCYTES % (AUTO) 5 % (0-12); NEUTROPHILS # (AUTO) 5.7 X 10^3 (1.8-7.8); NEUTROPHILS % (AUTO) 70 % (42-75); PLATELET COUNT 355 10^3/uL (130-400); RED BLOOD COUNT 3.48 10^6/uL (4.35-5.85); RED CELL DISTRIBUTION WIDTH 15.8 % (10.0-14.5)
[2017-07-26 17:39] LABS: ALBUMIN 3.5 GM/DL (3.2-4.5); BILIRUBIN,TOTAL 0.5 MG/DL (0.1-1.0); CREATININE SERUM 2.78 MG/DL (0.60-1.30); POTASSIUM 3.7 MMOL/L (3.6-5.0); TOTAL PROTEIN 7.7 GM/DL (6.4-8.2)
== END ==
LOC: LAB 16:52
PROVIDERS: ATTEND Nurse Practitioner Family
DX: D64.9 Anemia, unspecified (principal)
CPT/HCPCS: 36415; 80053; 85025; 86850; 86900; 86901

== ENCOUNTER 2017-11-23 12:00 | Outpatient (CLI) | payer MEDICARE, OTHER ==
[~2017-11-23] VITALS: Ht 167.6 cm; Wt 54.4 kg
[~2017-11-23 12:00] MED LIST changes: -FERR-74 PO; +FERR325T18 PO; +METO-370 PO
== END 2017-11-23 12:47 ==
LOC: PREOP 12:00
PROVIDERS: ATTEND Surgery
DX: Z01.818 Encounter for other preprocedural examination (principal); D50.9 Iron deficiency anemia, unspecified

== ENCOUNTER 2017-11-28 09:05 | Day surgery (SDC) | payer MEDICARE, OTHER ==
[~2017-11-28] VITALS: Ht 167.6 cm; Wt 54.4 kg
[2017-11-28] MEDS ORDERED: LACTATED RINGERS 1,000 ML IV ONE (09:11)
[2017-11-28] MEDS ORDERED: LACTATED RINGERS 1,000 ML IV STA (09:17)
[2017-11-28 09:26] VITALS: BP 160/62
[2017-11-28] MEDS ORDERED: HURRICAINE EXT TUBE (BENZOCAINE) XX PRN (09:30)
--- NOTE | 2017-11-28 11:35 | Progress Note-Pre Operative ---
Pre-Operative Progress Note H&P Reviewed The H&P was reviewed, patient examined and no changes noted. Date Seen by Provider: Nov 28, 2017 Time Seen by Provider: 11:35 Date H&P Reviewed: Nov 28, 2017 Time H&P Reviewed: 11:35 Pre-Operative Diagnosis: iron def anemia ADARSH DIOP DO Nov 28, 2017 11:35
[2017-11-28] MEDS ORDERED: PROPOFOL INJECTION 50 ML IV ONE (11:38)
[2017-11-28] MEDS ORDERED: HURRICAINE EXT TUBE (BENZOCAINE) ONE (12:15)
--- NOTE | 2017-11-28 13:08 | Progress Note-Post Operative ---
Post-Operative Progess Note Surgeon (s)/Lock Fitter (s) Surgeon ADARSH DIOP DO Lock Fitter: na Pre-Operative Diagnosis iron def anemia Post-Operative Diagnosis hiatal hernia, questionable healing ulcer, pandiverticulosis Procedure & Operative Findings Date of Procedure 11/28/17 Procedure Performed/Findings egd c biopsy, colonoscopy Anesthesia Type per senior education specialist Estimated Blood Loss Estimated blood loss (mL): none Specimens/Packing Specimens Removed antrum at possible healing ulcer ADARSH DIOP DO Nov 28, 2017 13:08
[2017-11-28 13:10] VITALS: BP 185/77
--- NOTE | 2017-11-28 13:10 | Discharge Inst-Simple/Standard ---
Discharge Inst-Standard Patient Instructions/Follow Up Plan of Care/Instructions/FU: 2 weeks Mian Activity as Tolerated: Yes Discharge Diet: Regular Diet ADARSH DIOP DO Nov 28, 2017 13:10
[2017-11-28 13:40] VITALS: BP 164/78
--- NOTE | 2017-11-28 18:15 | OPERATIVE REPORT ---
DATE OF SERVICE: 11/28/2017 PREOPERATIVE DIAGNOSIS: Iron deficiency anemia. POSTOPERATIVE DIAGNOSES: Hiatal hernia, questionable healing ulcer, camarena diverticulosis. PROCEDURE: EGD with biopsy, colonoscopy. SURGEON: Adarsh Pappas DO. ANESTHESIA: Per INDUSTRIAL MANAGEMENT TEACHER. ESTIMATED BLOOD LOSS: None. COMPLICATIONS: None. INDICATIONS: The patient is an 87-year-old female with continued iron deficiency anemia. She was explained risks and benefits of procedure and wished to proceed with procedure. Consent was signed on the chart. DESCRIPTION OF PROCEDURE: The patient was taken to the endoscopy suite, placed in left lateral recumbent position. Timeout was performed. Scope was inserted in mouth, down into esophagus, stomach and into the duodenum without difficulty. No polyps, masses or ulcerations within the duodenum. The scope was slowly retracted back into the stomach, which was further insufflated. There was an area in the antrum, has some slight erythematous changes, questionable healing ulcer. Biopsy of this area was obtained. Scope was retroflexed noting a hiatal hernia. No other pathology noted. Scope was returned to its normal position, slowly withdrawn to the distal esophagus, which had no polyps, masses, ulcerations or erythematous changes. Scope was slowly retracted until completely removed, noting no other pathology. Digital rectal exam was performed and there were no palpable polyps, masses or ulcerations. Scope was inserted in the rectum and advanced all the way to the cecum with minimal difficulty. Prep was adequate with irrigation and suction. There were no polyps, masses or ulcerations within the cecum, ascending, transverse, descending and sigmoid colon. Throughout the entire colon, there was diverticula present. Once in the rectum, scope was also retroflexed just noting some small hemorrhoidal disease. No other pathology noted. Scope was returned to its normal position, slowly withdrawn until completely removed. The patient tolerated procedure well without any complications. She was taken to recovery room in stable condition. RECOMMENDATIONS: The patient to continue on current medications. She will follow up in the office in 2 weeks to discuss pathology and we will also consider doing a capsule endoscopy for small bowel evaluation. Job ID: [id number] DocumentID: [id number] Dictated Date: 11/28/2017 13:09:04 Production Department Supervisor Date: 11/28/2017 18:14:42 Dictated By: ADARSH PAPPAS DO
== END 2017-11-28 13:40 | disposition home or self-care (01) ==
LOC: ENDO 09:05
PROVIDERS: ATTEND Surgery
DX: D50.9 Iron deficiency anemia, unspecified (principal); K44.9 Diaphragmatic hernia without obstruction or gangrene; K21.9 Gastro-esophageal reflux disease without esophagitis; K57.30 Diverticulosis of large intestine without perforation or abscess without bleeding; I10 Essential (primary) hypertension; J44.9 Chronic obstructive pulmonary disease, unspecified; N19 Unspecified kidney failure; I69.354 Hemiplegia and hemiparesis following cerebral infarction affecting left non-dominant side; Z79.899 Other long term (current) drug therapy

== ENCOUNTER 2017-12-14 13:49 | Emergency (ER) | payer MEDICARE, OTHER ==
[~2017-12-14] VITALS: Ht 152.4 cm; Wt 54.4 kg
[2017-12-14 14:05] LABS: BASOPHILS % (AUTO) 0 % (0-10); EOSINOPHILS % (AUTO) 1 % (0-10); HEMATOCRIT 35 % (35-52); HEMOGLOBIN 11.2 G/DL (11.5-16.0); LYMPHOCYTES # (AUTO) 0.8 X 10^3 (1.0-4.0); LYMPHOCYTES % (AUTO) 15 % (12-44); MEAN CORPUSCULAR HEMOGLOBIN 32 PG (25-34); MEAN CORPUSCULAR HGB CONC 32 G/DL (32-36); MEAN CORPUSCULAR VOLUME 100 FL (80-99); MEAN PLATELET VOLUME 11.9 FL (7.4-10.4); MONOCYTES # (AUTO) 0.2 X 10^3 (0.0-1.0); MONOCYTES % (AUTO) 4 % (0-12); NEUTROPHILS # (AUTO) 4.3 X 10^3 (1.8-7.8); NEUTROPHILS % (AUTO) 79 % (42-75); PLATELET COUNT 114 10^3/uL (130-400); RED BLOOD COUNT 3.49 10^6/uL (4.35-5.85); RED CELL DISTRIBUTION WIDTH 13.5 % (10.0-14.5); WHITE BLOOD COUNT 5.5 10^3/uL (4.3-11.0)
--- OUTSIDE RECORDS SUMMARY | 2017-12-14 14:07 | XMS REPORT | CCD ---
Author Author [facility]iana [facility] Organization [facility] Address [address] [place] [address] Phone Care Team Providers Care Lpn Care Manager Name Role Phone Riana Garcia PP Unavailable CCM Unavailable Summary Purpose Interface Exchange Insurance Providers Payer name Policy type / Coverage type Covered constitution party ID Effective Begin Date Effective End Date WPS Medicare Part B Medicare Part B [id number] 2013 Unknown [facility] [employer] Clarient Medicare Part B [id number] 2013 Unknown Family history Mother Diagnosis Age At Onset Diabetes mellitus Type 2 Unknown Cardiovascular disease Unknown Father Diagnosis Age At Onset Myocardial infarction Unknown Sister Diagnosis Age At Onset Hypercholesterolemia Unknown Cardiovascular disease Unknown Hypertension Unknown Stroke Unknown Side Diagnosis Age At Onset Cardiovascular disease Unknown Daughter Diagnosis Age At Onset Hypercholesterolemia Unknown Diabetes mellitus Type 1 Unknown Hypertension Unknown Depression Unknown Son Diagnosis Age At Onset Diabetes Unknown Side Diagnosis Age At Onset Cardiovascular disease Unknown Social History Social History Element Codes Description Effective Dates Marital status Unknown 10/11/2012 Number of children Unknown 6 hx diabetes 06/23/[address]: [id number] Never drinks alcohol 06/23/2011 Has the patient ever used illegal drugs? 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 Allergies, Adverse Reactions, Alerts Allergies, Adverse Reactions, Alerts data not found Past Medical History Illness Codes Condition Status Onset Date Resolved Date Anemia in chronic kidney disease ICD-9: 285.21 ICD-10: D63.1 Active 10/26/2016 Unknown Chronic kidney disease, stage 4 (severe) ICD-9: 585.4 ICD-10: N18.4 Active 08/22/2017 Unknown Essential (primary) hypertension ICD-9: 401.1 ICD-10: I10 Active 01/20/2017 Unknown Hemorrhage of anus and rectum ICD-9: 569.3 ICD-10: K62.5 Active 07/26/2017 Unknown Melena ICD-9: 578.1 ICD-10: K92.1 Active 07/26/2017 Unknown Hypertensive chronic kidney disease with stage 1 through stage 4 chronic kidney disease, or unspecified chronic kidney disease ICD-9: 403.90 ICD-10: I12.9 Active 04/27/2017 Unknown Chronic kidney disease, stage 3 (moderate) ICD-9: 585.3 ICD-10: N18.3 Active 05/11/2016 Unknown Functional diarrhea ICD-9: 564.5 ICD-10: K59.1 Active 02/27/2017 Unknown Localized edema ICD-9 : 782.3 ICD-10: R60.0 Active 05/23/2017 Unknown Mixed hyperlipidemia ICD-9: 272.4 ICD-10: E78.2 Active 01/06/2016 Unknown Muscle weakness (generalized) ICD-9: 728.87 ICD-10: M62.81 Active 05/23/2017 Unknown Other iron deficiency anemias ICD-9: 280.9 ICD-10: D50.8 Active 04/27/2017 Unknown Blister (nonthermal), left foot, initial encounter ICD-9: 917.2 ICD-10: S90.822A Active 03/30/2017 Unknown Chronic obstructive pulmonary disease with acute lower respiratory infection ICD-9: 491.22 ICD-10: J44.0 Active 03/30/2017 Unknown 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 ICD-10: K91.5 Active 03/30/2017 Unknown Major depressive disorder, single episode, unspecified ICD-9: 311 ICD-10: F32.9 Active 09/30/2015 Unknown Abnormal weight loss ICD-9: 783.21 ICD-10: R63.4 Active 12/02/2016 Unknown Gastro-esophageal reflux disease without esophagitis ICD-9: 530.81 ICD-10: K21.9 Active 05/11/2016 Unknown Cough ICD-9: 786.2 ICD-10: R05 Active 01/03/2017 Unknown Pneumonia due to other specified infectious organisms ICD-9: 483.8 ICD-10: J16.8 Active 01/03/2017 Unknown Essential (primary) hypertension ICD-9: 401.9 ICD-10: I10 Active 10/26/2016 Unknown Pneumonia, unspecified organism ICD-9: 486 ICD-10: J18.9 Active 12/02/2016 Unknown Urinary tract infection, site not specified ICD-9: 599.0 ICD-10: N39.0 Active 10/26/2016 Unknown Chronic obstructive pulmonary disease, unspecified ICD-9: 496 ICD-10: J44.9 Active 08/31/2016 Unknown Hypoxemia ICD-9: 799.02 ICD-10: R09.02 Active 08/31/2016 Unknown Frequency of micturition ICD-9: 788.41 ICD-10: R35.0 Active 05/11/2016 Unknown Nonrheumatic aortic (valve) stenosis ICD-9: 424.1 ICD-10: I35.0 Active 01/06/2016 Unknown Conjunctival hemorrhage, left eye ICD-9: 372.72 ICD-10: H11.32 Active 12/09/2015 Unknown Encounter for immunization ICD-9: V03.82 ICD-10: Z23 Active 09/30/2015 Unknown Other secondary hypertension ICD-9: 401.9 ICD-10: I15.8 Active 06/09/2014 Unknown HYPERLIPIDEMIA ICD-9: 272.4 Active 06/04/2015 Unknown Low back pain ICD-9: 724.2 Active 01/12/2015 Unknown MUSCLE WEAKNESS-GENERAL ICD-9: 728.87 Active 01/12/2015 Unknown Skin lesion ICD-9: 709.9 Active 01/12/2015 Unknown Costochondral chest pain ICD-9: 786.52 Active 01/02/2015 Unknown Shoulder pain, acute ICD-9: 719.41 Active 01/02/2015 Unknown DEPRESSIVE DISORDER NEC ICD-9: 311 Active 12/08/2014 Unknown ANEMIA ICD-9: 285.9 Active 09/08/2014 Unknown Knee pain, right ICD-9 : 719.46 Active 09/08/2014 Unknown OSTEOARTH NOS-UNSPEC ICD-9: 715.90 Active 09/08/2014 Unknown Dysuria ICD-9: 788.1 Active 06/09/2014 Unknown ESSENTIAL HYPERTENSION ICD-9: 401.9 Active 06/09/2014 Unknown Renal insufficiency ICD-9: 593.9 Active 06/09/2014 Unknown Ankle pain ICD-9: 719.47 Active 04/28/2014 Unknown COPD (chronic obstructive pulmonary disease) ICD-9: 496 Active 04/28/2014 Unknown Sciatica Unknown Active 03/26/2014 Unknown Leg pain ICD-9: 729.5 Active 03/26/2014 Unknown Sciatica neuralgia ICD -9: 724.3 Active 03/26/2014 Unknown History of urinary tract infection ICD-9: V13.02 Active 2013 Unknown Iron deficiency anemia ICD-9: 280.9 Active 02/05/2014 Unknown Plantar fascia syndrome ICD-9: 728.71 Active 02/05/2014 Unknown ABNORMAL LOSS OF WEIGHT ICD-9: 783.21 Active 12/03/2013 Unknown Encounter for long-term (current) use of other medications ICD-9: V58.69 Active 12/03/2013 Unknown Colon cancer screening ICD-9: V76.51 Active 11/28/2013 Unknown Hallux valgus ICD-9: 735.0 Active 08/20/2013 Unknown VACCIN FOR INFLUENZA ICD-9: V04.81 Active 08/20/2013 Unknown Chronic pruritus ICD-9 : 698.9 Active 05/30/2013 Unknown Acute exacerbation of COPD with asthma ICD-9: 493.22 Active Unknown Diabetes Unknown Active 01/17/2013 Unknown BACTERIAL PNEUMONIA NEC ICD-9: 482.89 Active 12/05/2012 Unknown Shingles ICD-9: 053.9 Active 12/05/2012 Unknown Hypertensive kidney disease, stage III ICD-9: 403.90 Active Unknown Nocturnal hypoxemia ICD-9: 799.02 Active 05/10/2012 Unknown Contusion of face ICD- 9: 920 Active 03/20/2012 Unknown Fall from slipping ICD -9: E885.9 Active 03/20/2012 Unknown Osteoarthritis Unknown Active 02/28/2012 Unknown ACUTE URI ICD-9: 465.9 Active 12/13/2011 Unknown Constipation ICD-9: 564.00 Active 12/13/2011 Unknown COUGH ICD-9: 786.2 Active 12/13/2011 Unknown Nasal lesion ICD-9: 478.19 Active 12/05/2011 Unknown Acute bacterial sinusitis ICD-9: 461.9 Active 06/23/2011 Unknown Depression Unknown Active 06/07/2011 Unknown Gastroesophageal reflux disease Unknown Active 06/07/2011 Unknown Hyperlipidemia Unknown Active 06/07/2011 Unknown Hypertension Unknown Active 06/07/2011 Unknown ESOPHAGEAL REFLUX ICD- 9: 530.81 Active 06/07/2011 Unknown Problems Condition Codes Effective Dates Condition Status Anemia in chronic kidney disease ICD-9: 285.21 ICD-10: D63.1 10/26/2016 Active Chronic kidney disease, stage 4 (severe) ICD-9: 585.4 ICD-10: N18.4 08/22/2017 Active Essential (primary) hypertension ICD-9: 401.1 ICD-10: I10 01/20/2017 Active Hemorrhage of anus and rectum ICD-9: 569.3 ICD-10: K62.5 07/26/2017 Active Melena ICD-9: 578.1 ICD-10: K92.1 07/26/2017 Active Hypertensive chronic kidney disease with stage 1 through stage 4 chronic kidney disease, or unspecified chronic kidney disease ICD-9: 403.90 ICD-10: I12.9 04/27/2017 Active Chronic kidney disease, stage 3 (moderate) ICD-9: 585.3 ICD-10: N18.3 05/11/2016 Active Functional diarrhea ICD-9: 564.5 ICD-10: K59.1 02/27/2017 Active Localized edema ICD-9 : 782.3 ICD-10: R60.0 05/23/2017 Active Mixed hyperlipidemia ICD-9: 272.4 ICD-10: E78.2 01/06/2016 Active Muscle weakness (generalized) ICD-9: 728.87 ICD-10: M62.81 05/23/2017 Active Other iron deficiency anemias ICD-9: 280.9 ICD-10: D50.8 04/27/2017 Active Blister (nonthermal), left foot, initial encounter ICD-9: 917.2 ICD-10: S90.822A 03/30/2017 Active Chronic obstructive pulmonary disease with acute lower respiratory infection ICD-9: 491.22 ICD-10: J44.0 03/30/2017 Active 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 ICD-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.5 03/30/2017 Active Major depressive disorder, single episode, unspecified ICD-9: 311 ICD-10: F32.9 09/30/2015 Active Abnormal weight loss ICD-9: 783.21 ICD-10: R63.4 12/02/2016 Active Gastro-esophageal reflux disease without esophagitis ICD-9: 530.81 ICD-10: K21.9 05/11/2016 Active Cough ICD-9: 786.2 ICD-10: R05 01/03/2017 Active Pneumonia due to other specified infectious organisms ICD-9: 483.8 ICD-10: J16.8 01/03/2017 Active Essential (primary) hypertension ICD-9: 401.9 ICD-10: I10 10/26/2016 Active Pneumonia, unspecified organism ICD-9: 486 ICD-10: J18.9 12/02/2016 Active Urinary tract infection, site not specified ICD-9: 599.0 ICD-10: N39.0 10/26/2016 Active Chronic obstructive pulmonary disease, unspecified ICD-9: 496 ICD-10: J44.9 08/31/2016 Active Hypoxemia ICD-9: 799.02 ICD-10: R09.02 08/31/2016 Active Frequency of micturition ICD-9: 788.41 ICD-10: R35.0 05/11/2016 Active Nonrheumatic aortic (valve) stenosis ICD-9: 424.1 ICD-10: I35.0 01/06/2016 Active Conjunctival hemorrhage, left eye ICD-9: 372.72 ICD-10: H11.32 12/09/2015 Active Encounter for immunization ICD-9: V03.82 ICD-10: Z23 09/30/2015 Active Other secondary hypertension ICD-9: 401.9 ICD-10: I15.8 06/09/2014 Active HYPERLIPIDEMIA ICD-9: 272.4 06/04/2015 Active Low back pain ICD-9: 724.2 01/12/2015 Active MUSCLE WEAKNESS-GENERAL ICD-9: 728.87 01/12/2015 Active Skin lesion ICD-9: 709.9 01/12/2015 Active Costochondral chest pain ICD-9: 786.52 01/02/2015 Active Shoulder pain, acute ICD-9: 719.41 01/02/2015 Active DEPRESSIVE DISORDER NEC ICD-9: 311 12/08/2014 Active ANEMIA ICD-9: 285.9 09/08/2014 Active Knee pain, right ICD-9 : 719.46 09/08/2014 Active OSTEOARTH NOS-UNSPEC ICD-9: 715.90 09/08/2014 Active Dysuria ICD-9: 788.1 06/09/2014 Active ESSENTIAL HYPERTENSION ICD-9: 401.9 06/09/2014 Active Renal insufficiency ICD-9: 593.9 06/09/2014 Active Ankle pain ICD-9: 719.47 04/28/2014 Active COPD (chronic obstructive pulmonary disease) ICD-9: 496 04/28/2014 Active Sciatica Unknown 03/26/2014 Active Leg pain ICD-9: 729.5 03/26/2014 Active Sciatica neuralgia ICD -9: 724.3 03/26/2014 Active History of urinary tract infection ICD-9: V13.02 02/05/2014 Active Iron deficiency anemia ICD-9: 280.9 02/05/2014 Active Plantar fascia syndrome ICD-9: 728.71 02/05/2014 Active ABNORMAL LOSS OF WEIGHT ICD-9: 783.21 12/03/2013 Active Encounter for long-term (current) use of other medications ICD-9: V58.69 2013 Active Colon cancer screening ICD-9: V76.51 11/28/2013 Active Hallux valgus ICD-9: 735.0 08/20/2013 Active VACCIN FOR INFLUENZA ICD-9: V04.81 08/20/2013 Active Chronic pruritus ICD-9 : 698.9 05/30/2013 Active Acute exacerbation of COPD with asthma ICD-9: 493.22 05/07/2013 Active Diabetes Unknown 01/17/2013 Active BACTERIAL PNEUMONIA NEC ICD-9: 482.89 12/05/2012 Active Shingles ICD-9: 053.9 12/05/2012 Active Hypertensive kidney disease, stage III ICD-9: 403.90 07/11/2012 Active Nocturnal hypoxemia ICD-9: 799.02 05/10/2012 Active Contusion of face ICD- 9: 920 03/20/2012 Active Fall from slipping ICD -9: E885.9 03/20/2012 Active Osteoarthritis Unknown 02/28/2012 Active ACUTE URI ICD-9: 465.9 12/13/2011 Active Constipation ICD-9: 564.00 12/13/2011 Active COUGH ICD-9: 786.2 12/13/2011 Active Nasal lesion ICD-9: 478.19 12/05/2011 Active Acute bacterial sinusitis ICD-9: 461.9 06/23/2011 Active Depression Unknown 06/07/2011 Active Gastroesophageal reflux disease Unknown 06/07/2011 Active Hyperlipidemia Unknown 06/07/2011 Active Hypertension Unknown 06/07/2011 Active ESOPHAGEAL REFLUX ICD- 9: 530.81 06/07/2011 Active Medications Medication Codes Instructions Start Date Stop Date Status Fill Instructions amlodipine 5 mg tablet RxNorm: 977491 TAKE ONE TABLET BY MOUTH ONCE DAILY 11/27/2017 No Stop Date Active pantoprazole 40 mg tablet,delayed release RxNorm: 461483 TAKE ONE TABLET BY MOUTH TWICE DAILY 11/27/2017 No Stop Date Active Lasix 20 mg tablet RxNorm: 475695 1 Tablet(s) PO daily 201612/06/2017 Active Lasix 20 mg tablet RxNorm: 187830 1 Tablet(s) PO daily 201608/08/2017 Inactive Keflex 500 mg capsule RxNorm: 900750 1 Capsule(s) PO BID 201606/12/2017 Inactive Keflex 500 mg capsule RxNorm: 530253 1 Capsule(s) PO TID 201606/04/2017 Inactive Keflex 500 mg capsule RxNorm: 609115 1 Capsule(s) PO TID 201606/01/2017 Inactive Trilipix 135 mg capsule,delayed release RxNorm: 153617 Capsule(s) TAKE ONE CAPSULE BY MOUTH ONCE DAILY 05/31/201708/2018 Inactive Toprol XL 50 mg tablet,extended release RxNorm: 288244 Tablet(s) TAKE ONE TABLET BY MOUTH TWICE DAILY 05/31/20172017 Inactive lovastatin 40 mg tablet RxNorm: 510153 Tablet(s) TAKE ONE TABLET BY MOUTH ONCE DAILY 05/31/2017 11/26/2017 Inactive citalopram 10 mg tablet RxNorm: 634898 Tablet(s) TAKE ONE TABLET BY MOUTH EVERY DAY 05/31/2017 11/26/2017 Inactive potassium chloride ER 20 mEq tablet,extended release RxNorm: 459850 1 Tablet(s) PO 2 times weekly 05/31/2017 11/26/2017 Inactive magnesium oxide 400 mg tablet RxNorm: 130638 1 Tablet(s) PO BID 05/31/2017 11/26/2017 Inactive Carafate 1 gram tablet RxNorm: 013611 1 Tablet(s) PO QID dissolve in water give 30 min before meal and bed 05/31/201708/2018 Inactive furosemide 40 mg tablet RxNorm: 982927 1 Tablet(s) PO daily 08/08/2017 Inactive amlodipine 5 mg tablet RxNorm: 033868 Tablet(s) PO TAKE ONE TABLET BY MOUTH EVERY DAY 05/31/2017 11/26/2017 Inactive potassium chloride ER 20 mEq tablet,extended release RxNorm: 633740 1 Tablet(s) PO 2 times weekly 05/31/2017 05/30/2017 Inactive Carafate 1 gram tablet RxNorm: 452044 1 Tablet(s) PO QID dissolve in water give 30 min before meal and bed 05/31/2017 Inactive pantoprazole 40 mg tablet,delayed release RxNorm: 849386 1 Tablet(s) PO BID 05/31/2017 11/26/2017 Inactive Lomotil 2.5 mg-0.025 mg tablet RxNorm: 1426417 1 Tablet(s) PO Q6 as needed 04/21/2017 No Stop Date Active amlodipine 5 mg tablet RxNorm: 689737 Tablet(s) PO TAKE ONE TABLET BY MOUTH EVERY DAY 03/30/2017 05/30/2017 Inactive Toprol XL 50 mg tablet,extended release RxNorm: 510852 TAKE ONE TABLET BY MOUTH TWICE DAILY 02/27/2017 05/30/2017 Inactive niacin 500 mg tablet RxNorm: 413544 1 Tablet(s) PO daily 201603/29/2017 Inactive omeprazole 40 mg capsule,delayed release RxNorm: 719575 1 Capsule(s) PO daily 01/20/2017 03/29/2017 Inactive citalopram 10 mg tablet RxNorm: 030382 Tablet(s) TAKE ONE TABLET BY MOUTH EVERY DAY 01/11/2017 05/30/2017 Inactive omeprazole 20 mg capsule,delayed release RxNorm: 286757 TAKE ONE CAPSULE BY MOUTH ONCE DAILY 01/10/2017 01/19/2017 Inactive Levaquin 250 mg tablet RxNorm: 195640 1 Tablet(s) PO UD 201601/09/2017 Inactive 2 PILLS TODAY THEN 1 PILL DAILY X 6 DAYS Levaquin 250 mg tablet RxNorm: 300972 1 Tablet(s) PO UD 201612/01/2016 Inactive 2 PILLS TODAY THEN 1 PILL DAILY X 6 DAYS Levaquin 250 mg tablet RxNorm: 520322 1 Tablet(s) PO UD 201612/08/2016 Inactive 2 PILLS TODAY THEN 1 PILL DAILY X 6 DAYS lovastatin 40 mg tablet RxNorm: 587734 TAKE ONE TABLET BY MOUTH ONCE DAILY 11/15/2016 05/13/2017 Inactive Trilipix 135 mg capsule,delayed release RxNorm: 079677 TAKE ONE CAPSULE BY MOUTH ONCE DAILY 11/15/2016 05/30/2017 Inactive Toprol XL 50 mg tablet,extended release RxNorm: 679302 1 Tablet(s) PO BID 10/19/2016 02/15/2017 Inactive Toprol XL 50 mg tablet,extended release RxNorm: 083926 1 Tablet(s) PO BID 10/19/2016 10/18/2016 Inactive metoprolol succinate ER 50 mg tablet,extended release 24 hr RxNorm: 660000 TAKE ONE TABLET BY MOUTH ONCE DAILY IN THE MORNING 09/27/2016 10/18/2016 Inactive amlodipine 10 mg tablet RxNorm: 944949 Tablet(s) TAKE ONE TABLET BY MOUTH EVERY DAY 08/10/2016 03/07/2017 Inactive omeprazole 20 mg capsule,delayed release RxNorm: 245693 TAKE ONE CAPSULE BY MOUTH ONCE DAILY 06/13/2016 12/09/2016 Inactive Cipro 500 mg tablet RxNorm: 175493 1 Tablet(s) PO BID 201505/15/2016 Inactive take probiotic bid x 7 days Cipro 500 mg tablet RxNorm: 628025 1 Tablet(s) PO BID 201505/22/2016 Inactive take probiotic bid x 7 days Trilipix 135 mg capsule,delayed release RxNorm: 921440 TAKE ONE CAPSULE BY MOUTH ONCE DAILY 05/16/2016 11/11/2016 Inactive lovastatin 40 mg tablet RxNorm: 930023 Tablet(s) TAKE ONE TABLET BY MOUTH EVERY DAY 01/22/2016 10/17/2016 Inactive Keflex 500 mg capsule RxNorm: 555991 1 Capsule(s) PO BID 201510/18/2016 Inactive also give probiotic(whatever is available) BID x 7 days citalopram 10 mg tablet RxNorm: 862109 Tablet(s) TAKE ONE TABLET BY MOUTH EVERY DAY 11/30/2015 11/23/2016 Inactive amlodipine 10 mg tablet RxNorm: 102285 Tablet(s) TAKE ONE TABLET BY MOUTH EVERY DAY 11/30/2015 06/26/2016 Inactive metoprolol succinate ER 50 mg tablet,extended release 24 hr RxNorm: 002205 1 Tablet(s) QAM TAKE ONE TABLET BY MOUTH IN THE MORNING 201406/23/2016 Inactive omeprazole 20 mg capsule,delayed release RxNorm: 779487 1 Capsule(s) PO daily TAKE ONE CAPSULE BY MOUTH EVERY DAY 07/03/2015 06/12/2016 Inactive Trilipix 135 mg capsule,delayed release RxNorm: 502970 Capsule(s) TAKE ONE CAPSULE BY MOUTH EVERY DAY 04/24/201503/2015 Inactive Cipro 250 mg tablet RxNorm: 694354 1 Tablet(s) PO BID 201404/21/2015 Inactive Cipro 250 mg tablet RxNorm: 357091 1 Tablet(s) PO BID 201404/14/2015 Inactive Cipro 500 mg tablet RxNorm: 468734 1 Tablet(s) PO BID 201403/11/2015 Inactive Cipro 500 mg tablet RxNorm: 793954 1 Tablet(s) PO BID 201403/04/2015 Inactive omeprazole 20 mg tablet,delayed release RxNorm: 836931 1 Tablet(s) PO daily 03/02/2015 05/30/2015 Inactive lovastatin 40 mg tablet RxNorm: 698239 Tablet(s) TAKE ONE TABLET BY MOUTH EVERY DAY 03/02/2015 11/26/2015 Inactive doxycycline hyclate 100 mg tablet RxNorm: 460533 1 Tablet(s) PO BID 12/30/2014 01/08/2015 Inactive Vitamin D2 1,000 unit capsule RxNorm: 950043 5 Capsule(s) PO daily 12/08/2014 12/03/2015 Inactive [SAVINGS FOR NON-COVERED DRUGS -- BIN:[id number], PCN: [id number], Group : XXXXX, ID# [id number], Questions: . THIS IS NOT INSURANCE.] citalopram 10 mg tablet RxNorm: 648410 Tablet(s) TAKE ONE TABLET BY MOUTH EVERY DAY 11/11/2014 11/10/2014 Inactive amlodipine 10 mg tablet RxNorm: 427200 TAKE ONE TABLET BY MOUTH EVERY DAY 11/11/2014 06/08/2015 Inactive citalopram 10 mg tablet RxNorm: 305059 TAKE ONE TABLET BY MOUTH EVERY DAY 11/11/2014 11/29/2015 Inactive amlodipine 10 mg tablet RxNorm: 914883 1 Tablet(s) PO daily TAKE ONE TABLET BY MOUTH EVERY DAY 11/11/2014 11/10/2014 Inactive Kenalog 40 mg/mL suspension for injection RxNorm: 7636443 1 Milliliter(s) Inj 09/08/2014 09/08/2014 Inactive metoprolol succinate ER 50 mg tablet,extended release 24 hr RxNorm: 605923 1 Tablet(s) QAM TAKE ONE TABLET BY MOUTH IN THE MORNING 201309/27/2015 Inactive metoprolol succinate ER 50 mg tablet,extended release 24 hr RxNorm: 495291 1 Tablet(s) TAKE ONE TABLET BY MOUTH IN THE MORNING 08/21/2014 09/07/2014 Inactive omeprazole 20 mg capsule,delayed release RxNorm: 397498 TAKE ONE CAPSULE BY MOUTH EVERY DAY 08/04/2014 01/30/2015 Inactive metoprolol succinate ER 50 mg tablet,extended release 24 hr RxNorm: 673085 TAKE ONE TABLET BY MOUTH IN THE MORNING 07/02/2014 08/20/2014 Inactive Keflex 500 mg capsule RxNorm: 105049 1 Capsule(s) PO TID 201305/10/2014 Inactive please give pt a probiotic to take tid while on keflex amlodipine 10 mg tablet RxNorm: 484978 TAKE ONE TABLET BY MOUTH EVERY DAY 04/28/2014 10/24/2014 Inactive metoprolol succinate ER 50 mg tablet,extended release 24 hr RxNorm: 610583 Tablet (s) PO TAKE ONE TABLET BY MOUTH IN THE MORNING and 1/2 at evening 04/28/2014 07/01/2014 Inactive citalopram 10 mg tablet RxNorm: 244391 TAKE ONE TABLET BY MOUTH EVERY DAY 04/24/2014 10/20/2014 Inactive omeprazole 20 mg capsule,delayed release RxNorm: 447953 TAKE ONE CAPSULE BY MOUTH EVERY DAY 04/24/2014 07/22/2014 Inactive omeprazole 20 mg capsule,delayed release RxNorm: 392422 TAKE ONE CAPSULE BY MOUTH EVERY DAY 04/24/2014 04/23/2014 Inactive lovastatin 40 mg tablet RxNorm: 861259 TAKE ONE TABLET BY MOUTH EVERY DAY 04/17/2014 01/11/2015 Inactive Trilipix 135 mg capsule,delayed release RxNorm: 228506 TAKE ONE CAPSULE BY MOUTH EVERY DAY 04/08/2014 08/05/2014 Inactive metoprolol tartrate 25 mg tablet RxNorm: 406965 Tablet(s) PO TAKE ONE-HALF TABLET BY MOUTH IN THE EVENING 03/24/20142013 Inactive metoprolol tartrate 25 mg tablet RxNorm: 684063 Tablet(s) PO TAKE ONE-HALF TABLET BY MOUTH IN THE EVENING 02/07/20142013 Inactive Levaquin 250 mg tablet RxNorm: 903272 Tablet(s) PO take 2 tabs day1 and then 1 tab x 6 days 02/07/2014 02/13/2014 Inactive iron 325 mg (65 mg iron) tablet RxNorm: 714539 1 Tablet(s) PO BID 02/05/2014 12/07/2014 Inactive ciprofloxacin 500 mg tablet RxNorm: 108617 1 Tablet(s) PO BID 12/26/2013 01/01/2014 Inactive amlodipine 10 mg tablet RxNorm: 619748 Tablet(s) PO TAKE ONE TABLET BY MOUTH EVERY DAY 12/24/2013 04/27/2014 Inactive metoprolol succinate ER 50 mg tablet,extended release 24 hr RxNorm: 611803 Tablet (s) PO TAKE ONE TABLET BY MOUTH IN THE MORNING 12/05/2013 04/27/2014 Inactive Kenalog 40 mg/mL suspension for injection RxNorm: 7821422 Milliliter(s) Inj 10/31/2013 10/31/2013 Inactive lovastatin 40 mg tablet RxNorm: 697754 Tablet(s) PO TAKE ONE TABLET BY MOUTH EVERY DAY 09/26/2013 04/16/2014 Inactive amlodipine 10 mg tablet RxNorm: 561693 Tablet(s) PO TAKE ONE TABLET BY MOUTH EVERY DAY 07/09/2013 12/23/2013 Inactive albuterol sulfate 2.5 mg/3 mL (0.083 %) Neb Solution RxNorm: 412854 3 Milliliter(s ) INH BID inhale bid and q 4 hours as needed for shortness of breath or severe hypoxemia 05/07/2013 12/07/2014 Inactive dispense one box prednisone 20 mg tablet RxNorm: 198220 Tablet(s) PO 05/06/2013 05/29/2013 Inactive 2 bid x 2 days then one daily x 2 days then stop metoprolol succinate ER 50 mg tablet,extended release 24 hr RxNorm: 274871 1 Tablet(s) PO daily 04/23/2013 11/18/2013 Inactive metoprolol tartrate 25 mg tablet RxNorm: 333006 1/2 Tablet(s) PO QPM 04/23/2013 10/19/2013 Inactive Voltaren 1 % Topical Gel RxNorm: 447902 4 Gram(s) TOP QID 04/1112/07/2014 Inactive citalopram 10 mg tablet RxNorm: 985442 1 Tablet(s) PO daily TAKE ONE TABLET BY MOUTH EVERY DAY 03/21/2013 03/15/2014 Inactive Trilipix 135 mg capsule,delayed release RxNorm: 691827 1 Capsule(s) PO daily 03/18/2013 03/12/2014 Inactive Pennsaid 1.5 % Topical Drops RxNorm: 753144 40 Drop(s) TOP QID 03/18/2013 12/07/2014 Inactive Symbicort 160 mcg-4.5 mcg/actuation HFA Aerosol Inhaler RxNorm: 8723136 HFA Aerosol Inhaler INH INHALE ONE PUFF BY MOUTH TWICE DAILY 02/2013 No Stop Date Active omeprazole 20 mg capsule,delayed release RxNorm: 296698 Capsule(s) PO TAKE ONE CAPSULE BY MOUTH EVERY DAY 01/18/201306/2014 Inactive lovastatin 40 mg tablet RxNorm: 271605 Tablet(s) PO TAKE ONE TABLET BY MOUTH EVERY DAY 01/07/2013 09/25/2013 Inactive niacin 500 mg tablet RxNorm: 003589 1 Tablet(s) PO BID 201202/26/2017 Inactive citalopram 10 mg tablet RxNorm: 639273 Tablet(s) PO TAKE ONE TABLET BY MOUTH EVERY DAY 10/03/2012 03/21/2013 Inactive citalopram 10 mg tablet RxNorm: 305518 Tablet(s) PO 07/30/2012 10/02/2012 Inactive TAKE ONE TABLET BY MOUTH EVERY DAY Nexium 40 mg capsule,delayed release RxNorm: 874135 1 Capsule(s) PO daily 07/17/2012 12/26/2012 Inactive metoprolol tartrate 25 mg tablet RxNorm: 317094 Tablet(s) PO 12/26/2012 Inactive 1 q am 1/2 q hs Nexium 40 mg capsule,delayed release RxNorm: 291419 1 Capsule(s) PO daily 07/17/2012 07/16/2012 Inactive Nexium Packet 40 mg oral suspension,delayed release RxNorm: 073157 1 Capsule(s) PO daily 06/13/2012 07/12/2012 Inactive citalopram 10 mg tablet RxNorm: 501446 Tablet(s) PO 05/29/2012 07/29/2012 Inactive TAKE ONE TABLET BY MOUTH EVERY DAY metoprolol tartrate 25 mg tablet RxNorm: 217769 1/2 Tablet(s) PO BID 04/19/2012 07/16/2012 Inactive Rocephin 500 mg Solution for Injection RxNorm: 651680 1 Milliliter(s) Inj 03/20/2012 03/20/2012 Inactive Kenalog 40 mg/mL Susp for Injection RxNorm: 5693566 1 Milliliter(s) Inj 03/20/2012 03/20/2012 Inactive omeprazole 20 mg capsule,delayed release RxNorm: 559565 1 Capsule(s) PO daily 12/19/2011 06/12/2012 Inactive citalopram 10 mg tablet RxNorm: 061003 1 Tablet(s) PO daily 02/201205/28/2012 Inactive TAKE ONE TABLET BY MOUTH EVERY DAY lovastatin 40 mg tablet RxNorm: 911492 1 Tablet(s) PO daily 02/201201/06/2013 Inactive TAKE ONE TABLET BY MOUTH EVERY DAY amlodipine 10 mg tablet RxNorm: 830420 Tablet(s) PO 12/19/2011 07/08/2013 Inactive TAKE ONE TABLET BY MOUTH EVERY DAY lactobacillus acidophilus Chewable Tab RxNorm: 1 Tablet(s) PO BID 12/13/2011 12/17/2011 Inactive Bactroban Nasal 2 % Ointment RxNorm: 170673 1 Application NASAL BID 12/05/2011 12/11/2011 Inactive amlodipine 10 mg Tab RxNorm: 254884 1 Tablet(s) PO daily 201007/07/2011 Inactive metoprolol tartrate 25 mg Tab RxNorm: 187575 1/2 Tablet(s) PO BID 06/08/2011 07/07/2011 Inactive niacin 500 mg Tab RxNorm: 954675 1 Tablet(s) PO QPM 201007/07/2011 Inactive lovastatin 40 mg Tab RxNorm: 242373 1 Tablet(s) PO QPM 201007/07/2011 Inactive Colace 100 mg Cap RxNorm: 2704138 1 Capsule(s) PO BID 201007/07/2011 Inactive citalopram 10 mg Tab RxNorm: 412759 1 Tablet(s) PO daily 201007/07/2011 Inactive omeprazole 20 mg Tab, Delayed Release RxNorm: 778600 1 Tablet(s) PO daily 06/08/2011 07/07/2011 Inactive ferrous sulfate 325 mg (65 mg iron) tablet RxNorm: 378017 1 Tablet(s) PO BID No Start Date Active multivitamin tablet RxNorm: 1 Tablet(s) PO daily No Start Date Active aspirin 325 mg tablet RxNorm: 174935 1 Tablet(s) PO daily No Start Date Active Vitamin D3 5,000 unit tablet RxNorm: 245142 1 Tablet(s) PO daily No Start Date Active Vitamin C 1,000 mg tablet RxNorm: 361799 1 Tablet(s) PO daily No Start Date Active Dulera 200 mcg-5 mcg/actuation HFA aerosol inhaler RxNorm: 0372411 1 INH daily No Start Date Active pantoprazole 40 mg tablet,delayed release RxNorm: 934189 1 Tablet(s) PO BID No Start Date 05/30/2017 Inactive niacin 500 mg tablet RxNorm: 094595 1 Tablet(s) PO HS No Start Date 12/26/2012 Inactive metoprolol tartrate 25 mg tablet RxNorm: 201278 1/2 Tablet(s) PO QPM No Start Date 04/22/2013 Inactive Spiriva with HandiHaler 18 mcg & inhalation capsules RxNorm: 725935 1 Capsule(s) INH daily No Start Date 02/13/2013 Inactive omeprazole 20 mg Tab, Delayed Release RxNorm: 894053 1 Tablet(s) PO daily No Start Date 03/01/2015 Inactive hydrocortisone acetate 25 mg Rectal Suppository RxNorm: 5777683 1 Suppository RTL BID PRN No Start Date 01/06/2016 Inactive vitamin E (dl, acetate) 400 unit capsule RxNorm: 639807 1 Capsule(s) PO daily No Start Date 03/29/2017 Inactive furosemide 40 mg tablet RxNorm: 096934 1 Tablet(s) PO daily No Start Date 05/30/2017 Inactive Keflex 500 mg capsule RxNorm: 658030 1 Capsule(s) PO TID No Start Date 04/30/2014 Inactive Colace 100 mg Cap RxNorm: 9062477 1 Capsule(s) PO BID No Start Date 12/07/2014 Inactive Vitamin D2 1,000 unit capsule RxNorm: 247271 1 Capsule(s) PO daily No Start Date 12/07/2014 Inactive lovastatin 40 mg Tab RxNorm: 364090 1 Tablet(s) PO HS No Start Date 12/19/2011 Inactive Zithromax Z-[place] 250 mg Tab RxNorm: 947322 Tablet(s) PO UD No Start Date 02/28/2012 Inactive Keflex 500 mg capsule RxNorm: 368904 1 Capsule(s) PO BID No Start Date 01/10/2016 Inactive garlic 300 mg tablet RxNorm: 957409 1 Tablet(s) PO BID No Start Date 02/27/2017 Inactive iron 325 mg (65 mg iron) tablet RxNorm: 224862 1 Tablet(s) PO daily No Start Date 02/04/2014 Inactive citalopram 10 mg Tab RxNorm: 617521 1 Tablet(s) PO daily No Start Date 12/19/2011 Inactive prednisone 20 mg tablet RxNorm: 806391 Tablet(s) PO No Start Date 05/05/2013 Inactive 2 bid x 2 days then one daily x 2 days then stop Zithromax Z-[place] 250 mg Tab RxNorm: 753255 1 Tablet(s) PO daily No Start Date 07/26/2011 Inactive Zithromax Z-[place] 250 mg tablet RxNorm: 220175 Tablet(s) PO No Start Date 02/05/2014 Inactive Levaquin 250 mg tablet RxNorm: 657582 Tablet(s) PO take 2 tabs day1 and then 1 tab x 6 days No Start Date 02/06/2014 Inactive Zithromax 250 mg Tab RxNorm: 199281 Tablet(s) PO UD No Start Date 02/13/2013 Inactive metoprolol tartrate 25 mg Tab RxNorm: 523577 1/2 Tablet(s) PO BID No Start Date 04/18/2012 Inactive Fish Oil 1,000 mg Cap RxNorm: Capsule(s) PO TID No Start Date 03/29/2017 Inactive ciprofloxacin 500 mg tablet RxNorm: 020454 1 Tablet(s) PO BID No Start Date 12/25/2013 Inactive metoprolol succinate ER 50 mg tablet,extended release 24 hr RxNorm: 508289 1 Tablet(s) PO daily No Start Date 2012 Inactive Symbicort 160 mcg-4.5 mcg/actuation HFA Aerosol Inhaler RxNorm: 4226120 2 Puff(s) INH BID No Start Date 01/17/2013 Inactive amlodipine 10 mg Tab RxNorm: 661196 1 Tablet(s) PO daily No Start Date 12/18/2011 Inactive Lomotil 2.5 mg-0.025 mg tablet RxNorm: 5462123 1 Tablet(s) PO Q6 as needed No Start Date 04/20/2017 Inactive Vitamin D2 50,000 unit capsule RxNorm: 639559 1 Capsule(s) PO QW No Start Date 12/02/2015 Inactive magnesium oxide 400 mg tablet RxNorm: 387385 1 Tablet(s) PO BID No Start Date 05/30/2017 Inactive Medication Administered Medication Codes Instructions Start Date Status Kenalog 40 mg/mL suspension for injection RxNorm: 1484389 1Milliliter 09/08/2014 No longer Active Kenalog 40 mg/mL suspension for injection RxNorm: 5837234 Milliliter 10/31/2013 No longer Active Rocephin 500 mg Solution for Injection RxNorm: 004940 1Milliliter 03/20/2012 No longer Active Kenalog 40 mg/mL Susp for Injection RxNorm: 8093240 1Milliliter 03/20/2012 No longer Active Immunizations Vaccine Codes Date Status Influenza CVX: 141 09/27/2016 completed Pneumococcal (Adult) CVX: 133 10/01/2015 completed Pneumococcal CVX: 33 09/08/2013 completed Influenza CVX: 141 08/20/2013 completed Influenza CVX: 141 07/26/2011 completed Assessments Condition Codes Effective Dates Chronic kidney disease, stage 4 (severe) ICD-10: N18.4 ICD-9: 585.4 08/22/2017 Anemia in chronic kidney disease ICD-10: D63.1 ICD-9: 285.21 08/22/2017 Essential (primary) hypertension ICD-10: I10 ICD-9: 401.1 08/22/2017 Melena ICD-10: K92.1 ICD-9: 578.1 07/26/2017 Hemorrhage of anus and rectum ICD-10: K62.5 ICD-9: 569.3 07/26/2017 Hypertensive chronic kidney disease with stage 1 through stage 4 chronic kidney disease, or unspecified chronic kidney disease ICD-10 : I12.9 ICD-9: 403.90 06/27/2017 Functional diarrhea ICD-10: K59.1 ICD-9: 564.5 05/23/2017 Chronic kidney disease, stage 3 (moderate) ICD-10: N18.3 ICD-9: 585.3 05/23/2017 Localized edema ICD-10: R60.0 ICD-9: 782.3 05/23/2017 Muscle weakness (generalized) ICD-10: M62.81 ICD-9: 728.87 05/23/2017 Mixed hyperlipidemia ICD-10: E78.2 ICD-9: 272.4 05/10/2017 Other iron deficiency anemias ICD-10: D50.8 ICD-9: 280.9 04/27/2017 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8 01/03/2017 Essential (primary) hypertension ICD-10: I10 ICD-9: 401.9 12/16/2016 Pneumonia, unspecified organism ICD-10: J18.9 ICD-9: 486 12/02/2016 Urinary tract infection, site not specified ICD-10: N39.0 ICD-9: 599.0 10/27/2016 Chronic obstructive pulmonary disease, unspecified ICD-10: J44.9 ICD-9: 496 09/01/2016 Hypoxemia ICD-10: R09.02 ICD-9: 799.02 09/01/2016 Frequency of micturition ICD-10: R35.0 ICD-9: 788.41 05/12/2016 Nonrheumatic aortic (valve) stenosis ICD-10: I35.0 ICD-9: 424.1 01/07/2016 Conjunctival hemorrhage, left eye ICD-10: H11.32 ICD-9: 372.72 12/10/2015 Encounter for immunization ICD-10: Z23 ICD-9: V03.82 10/01/2015 Other secondary hypertension ICD-10: I15.8 ICD-9: 401.9 07/23/2015 CHRONIC AIRWAY OBST NEC ICD-9: 496 2014 HYPERLIPIDEMIA ICD-9: 272.4 06/04/2015 OSTEOARTH NOS-UNSPEC ICD-9: 715.90 2014 ESSENTIAL HYPERTENSION ICD-9: 401.9 06/04 MUSCLE WEAKNESS-GENERAL ICD-9: 728.87 Skin lesion ICD-9: 709.9 01/12/2015 Low back pain ICD-9: 724.2 01/12/2015 Shoulder pain, acute ICD-9: 719.41 2014 Costochondral chest pain ICD-9: 786.52 DEPRESSIVE DISORDER NEC ICD-9: 311 2014 Knee pain, right ICD-9: 719.46 2013 ANEMIA ICD-9: 285.9 09/08/2014 Dysuria ICD-9: 788.1 06/09/2014 Ankle pain ICD-9: 719.47 06/09/2014 Renal insufficiency ICD-9: 593.9 2013 Leg pain ICD-9: 729.5 03/26/2014 Sciatica neuralgia ICD-9: 724.3 2013 Plantar fascia syndrome ICD-9: 728.71 History of urinary tract infection ICD-9: V13.02 02/05/2014 Iron deficiency anemia ICD-9: 280.9 02/05 ABNORMAL LOSS OF WEIGHT ICD-9: 783.21 CHRONIC OBSTRUCTIVE ASTHMA WITH EXACERBATION ICD-9: 493.22 12/03/2013 Encounter for long-term (current) use of other medications ICD-9: V58.69 12/03/2013 Colon cancer screening ICD-9: V76.51 COUGH ICD-9: 786.2 10/31/2013 Hallux valgus ICD-9: 735.0 08/20/2013 VACCIN FOR INFLUENZA ICD-9: V04.81 2012 Chronic pruritus ICD-9: 698.9 05/30/2013 Shingles ICD-9: 053.9 12/05/2012 Hypoxemia ICD-9: 799.02 12/05/2012 BACTERIAL PNEUMONIA NEC ICD-9: 482.89 Hypertensive kidney disease, stage III ICD-9: 403.90 07/11/2012 Esophageal reflux ICD-9: 530.81 2011 ACUTE URI ICD-9: 465.9 03/20/2012 Contusion of face ICD-9: 920 03/20/2012 Fall from slipping ICD-9: E885.9 2011 Constipation ICD-9: 564.00 12/13/2011 Nasal lesion ICD-9: 478.19 12/05/2011 Acute bacterial sinusitis ICD-9: 461.9 Reason For Visit Reason For Visit Effective Dates Notes muscle weakness 08/22/2017 improving abnormal bleeding and bruising 07/26/2017 muscle weakness 06/27/2017 fatigue 05/23/2017 fatigue 05/10/2017 Hospital Follow Up 04/27/2017 GI bleed, anemia, pneumonia Hospital Follow Up 03/30/2017 diarrhea 02/27/2017 blood pressure followup 01/20/2017 cough 01/03/2017 blood pressure followup 12/16/2016 blood pressure followup 12/02/2016 hypertension 10/27/2016 hypertension 09/01/2016 hypertension 06/10/2016 diarrhea 05/12/2016 hypertension 01/07/2016 eye erythema 12/10/2015 hypertension 12/03/2015 shortness of breath 10/01/2015 Hospital Follow Up 07/23/2015 back pain 06/04/2015 left arm radiates from left shoulder. Has a hx of falling to that side. back pain 01/12/2015 left arm back pain 01/02/2015 left arm arm pain 12/30/2014 left arm hypertension 12/08/2014 hypertension 09/08/2014 Right knee pain, with trouble going from sitting to standing. hypertension 06/09/2014 hypertension 04/28/2014 hypertension 03/26/2014 hypertension 02/05/2014 hypertension 12/11/2013 hypertension 11/27/2013 weight loss 10/31/2013 hypertension 09/30/2013 hypertension 08/20/2013 pruritus 05/30/2013 --Improved cough 05/07/2013 back pain 04/11/2013 hypertension 03/18/2013 blood pressure followup 02/14/2013 hypertension 01/17/2013 hypertension 12/27/2012 chest congestion 12/05/2012 hypertension 10/11/2012 states she has been under stress lately low back and leg pain 07/25/2012 anemia 07/11/2012 anemia 06/13/2012 hypertension 05/10/2012 ecchymosis 03/20/2012 dysuria 03/05/2012 blood pressure followup 02/28/2012 right knee, pt states it hurts when she walks or puts pressure on it blood pressure followup 12/13/2011 blood pressure followup 12/05/2011 blood pressure followup 07/26/2011 cough 06/23/2011 ~generic 06/07/2011 checkup Results Observation Observation Code Item Item Code Result Date Comp Metabolic Cav059 NA 137 mEq/L 08/02/2017 Comp Metabolic Bll921 K 4.1 mEq/L 08/02/2017 Comp Metabolic Vir723 CL 97 mEq/L 08/02/2017 Comp Metabolic Mse822 CO2 31.0 mEq/L 08/02/2017 Comp Metabolic Ddz603 ANION GAP 13 08/02/2017 Comp Metabolic Wac120 GLUCOSE 98 mg/dL 08/02/2017 Comp Metabolic Hzf042 Creat 2.7 mg/dL 08/02/2017 Comp Metabolic Sta771 eGFR 18 ml/min/1.73m2 08/02/2017 Comp Metabolic Rrr677 BUN 57 mg/dL 08/02/2017 Comp Metabolic Vny111 B/C Ratio 21.4 Ratio 08/02/2017 Comp Metabolic Fux444 CALCIUM 9.3 mg/dL 08/02/2017 Comp Metabolic Ezt237 ALK PHOS 49 U/L 08/02/2017 Comp Metabolic Zjk305 AST(SGOT) 40 U/L 08/02/2017 Comp Metabolic Qqn843 ALT(SGPT) 18 U/L 08/02/2017 Comp Metabolic Dnw648 BILI T 0.4 mg/dL 08/02/2017 Comp Metabolic Yhh225 ALBUMIN 3.5 g/dL 08/02/2017 Comp Metabolic Xxn825 TPRO 6.8 g/dL 08/02/2017 Comp Metabolic Iwr128 GLOB 3.3 g/dL 08/02/2017 Comp Metabolic Wds844 A/G Ratio 1.1 Ratio 08/02/2017 Comp Metabolic Vlr635 Osmo 290 mOsmo 08/02/2017 Cbc With Differential Ord2 WBC 7.25 K/ul 06/27/2017 Cbc With Differential Ord2 RBC 2.51 M/ul 06/27/2017 Cbc With Differential Ord2 HGB 7.8 g/dl 06/27/2017 Cbc With Differential Ord2 HCT 25.1 % 06/27/2017 Cbc With Differential Ord2 Neut% 54.4 % 06/27/2017 Cbc With Differential Ord2 MCV 100.0 fl 06/27/2017 Cbc With Differential Ord2 Lymph% 35.9 % 06/27/2017 Cbc With Differential Ord2 MCH 31.1 pg 06/27/2017 Cbc With Differential Ord2 [place]% 7.4 % 06/27/2017 Cbc With Differential Ord2 MCHC 31.1 pg 06/27/2017 Cbc With Differential Ord2 Eos% 1.9 % 06/27/2017 Cbc With Differential Ord2 Baso% 0.4 % 06/27/2017 Cbc With Differential Ord2 PLT 214 K/ul 06/27/2017 Cbc With Differential Ord2 Neut ABS# 3.94 K/ul 06/27/2017 Cbc With Differential Ord2 RDW 15.2 % 06/27/2017 Cbc With Differential Ord2 Lymph ABS# 2.60 K/ul 06/27/2017 Cbc With Differential Ord2 [place] ABS# 0.5 K/ul 06/27/2017 Cbc With Differential Ord2 Eos ABS# 0.1 K/ul 06/27/2017 Cbc With Differential Ord2 Baso ABS# 0.0 K/ul 06/27/2017 Comp Metabolic Cty656 NA 139 mEq/L 10/27/2016 Comp Metabolic Eqw756 K 4.4 mEq/L 10/27/2016 Comp Metabolic Svb652 CL 103 mEq/L 10/27/2016 Comp Metabolic Dgr839 CO2 30.0 mEq/L 10/27/2016 Comp Metabolic Ovx597 ANION GAP 10 10/27/2016 Comp Metabolic Wja311 GLUCOSE 105 mg/dL 10/27/2016 Comp Metabolic Thl339 Creat 1.4 mg/dL 10/27/2016 Comp Metabolic Oqm322 eGFR 39 ml/min/1.73m2 10/27/2016 Comp Metabolic Eab533 BUN 32 mg/dL 10/27/2016 Comp Metabolic Bhc233 B/C Ratio 23.5 Ratio 10/27/2016 Comp Metabolic Fem391 CALCIUM 9.9 mg/dL 10/27/2016 Comp Metabolic Pvh755 ALK PHOS 39 U/L 10/27/2016 Comp Metabolic Mzg311 AST(SGOT) 32 U/L 10/27/2016 Comp Metabolic Fzh570 ALT(SGPT) 17 U/L 10/27/2016 Comp Metabolic Zrd014 BILI T 0.5 mg/dL 10/27/2016 Comp Metabolic Bpg971 ALBUMIN 4.1 g/dL 10/27/2016 Comp Metabolic Ora527 TPRO 7.0 g/dL 10/27/2016 Comp Metabolic Oel660 GLOB 2.9 g/dL 10/27/2016 Comp Metabolic Bes190 A/G Ratio 1.4 Ratio 10/27/2016 Comp Metabolic Yre903 Osmo 285 mOsmo 10/27/2016 Cbc With Differential Ord2 WBC 6.58 K/ul 10/27/2016 Cbc With Differential Ord2 RBC 3.44 M/ul 10/27/2016 Cbc With Differential Ord2 HGB 10.6 g/dl 10/27/2016 Cbc With Differential Ord2 Neut% 54.6 % 10/27/2016 Cbc With Differential Ord2 HCT 33.7 % 10/27/2016 Cbc With Differential Ord2 Lymph% 32.4 % 10/27/2016 Cbc With Differential Ord2 MCV 98.0 fl 10/27/2016 Cbc With Differential Ord2 MCH 30.8 pg 10/27/2016 Cbc With Differential Ord2 [place]% 8.8 % 10/27/2016 Cbc With Differential Ord2 MCHC 31.5 pg 10/27/2016 Cbc With Differential Ord2 Eos% 3.6 % 10/27/2016 Cbc With Differential Ord2 PLT 198 K/ul 10/27/2016 Cbc With Differential Ord2 Baso% 0.6 % 10/27/2016 Cbc With Differential Ord2 Neut ABS# 3.59 K/ul 10/27/2016 Cbc With Differential Ord2 RDW 14.7 % 10/27/2016 Cbc With Differential Ord2 Lymph ABS# 2.13 K/ul 10/27/2016 Cbc With Differential Ord2 [place] ABS# 0.6 K/ul 10/27/2016 Cbc With Differential Ord2 Eos ABS# 0.2 K/ul 10/27/2016 Cbc With Differential Ord2 Baso ABS# 0.0 K/ul 10/27/2016 Tsh Ord6 hTSH II 0.95 uIU/mL 10/27/2016 Cbc With Differential Ord2 WBC 5.68 K/ul 07/13/2016 Cbc With Differential Ord2 RBC 3.29 M/ul 07/13/2016 Cbc With Differential Ord2 HGB 10.1 g/dl 07/13/2016 Cbc With Differential Ord2 Neut% 57.2 % 07/13/2016 Cbc With Differential Ord2 HCT 32.3 % 07/13/2016 Cbc With Differential Ord2 MCV 98.2 fl 07/13/2016 Cbc With Differential Ord2 Lymph% 28.5 % 07/13/2016 Cbc With Differential Ord2 MCH 30.7 pg 07/13/2016 Cbc With Differential Ord2 [place]% 8.8 % 07/13/2016 Cbc With Differential Ord2 MCHC 31.3 pg 07/13/2016 Cbc With Differential Ord2 Eos% 4.8 % 07/13/2016 Cbc With Differential Ord2 PLT 180 K/ul 07/13/2016 Cbc With Differential Ord2 Baso% 0.7 % 07/13/2016 Cbc With Differential Ord2 Neut ABS# 3.25 K/ul 07/13/2016 Cbc With Differential Ord2 RDW 14.2 % 07/13/2016 Cbc With Differential Ord2 Lymph ABS# 1.62 K/ul 07/13/2016 Cbc With Differential Ord2 [place] ABS# 0.5 K/ul 07/13/2016 Cbc With Differential Ord2 Eos ABS# 0.3 K/ul 07/13/2016 Cbc With Differential Ord2 Baso ABS# 0.0 K/ul 07/13/2016 Tibc Ord40 Iron 149 ug/dl 07/13/2016 Tibc Ord40 UIBC 239 ug/dL 07/13/2016 Tibc Ord40 TIBC 388 ug/dL 07/13/2016 Tibc Ord40 Fe-%Sat 38.4 % 07/13/2016 Lipid Ord30 CHOL 146 mg/dL 07/13/2016 Lipid Ord30 HDL 50.0 mg/dl 07/13/2016 Lipid Ord30 TRIG 153 mg/dL 07/13/2016 Lipid Ord30 LDL 65 mg/dL 07/13/2016 Lipid Ord30 C/HDL 2.9 Ratio 07/13/2016 Urinalysis Ord28 U-Color Yellow 07/13/2016 Urinalysis Ord28 U-Clarity Clear 07/13/2016 Urinalysis Ord28 U-Gluc Negative 07/13/2016 Urinalysis Ord28 U-Bili Negative 07/13/2016 Urinalysis Ord28 U-Ketone Negative 07/13/2016 Urinalysis Ord28 U-SG 1.020 07/13/2016 Urinalysis Ord28 U-Blood Negative 07/13/2016 Urinalysis Ord28 U-pH 5.5 07/13/2016 Urinalysis Ord28 U-Protein Trace 07/13/2016 Urinalysis Ord28 U-Urobilin 0.2 E.U./dL E.U./dL 07/13/2016 Urinalysis Ord28 U-Nitrites Positive 07/13/2016 Urinalysis Ord28 U-Leuk Small 07/13/2016 Urinalysis Ord28 U-Bact 3+ 07/13/2016 Urinalysis Ord28 U-Squamous Epi 5-10 per/HPF 07/13/2016 Urinalysis Ord28 U-Crystal None per/HPF 07/13/2016 Urinalysis Ord28 U-Mucus None 07/13/2016 Urinalysis Ord28 U-Renal tubular epi None 07/13/2016 Urinalysis Ord28 U-RBC None per/HPF 07/13/2016 Urinalysis Ord28 U-Transitional epi None per/HPF 07/13/2016 Urinalysis Ord28 U-WBC 10-20 per/HPF 07/13/2016 Urinalysis Ord28 U-Cast None per/HPF 07/13/2016 Urinalysis Ord28 U-VOL VOLUME SUFFICIENT (10mL) 07/13/2016 Urinalysis Ord28 U-Com Urine saved if culture needed (specimen acceptable for 48 hours from collection if refrigerated) 07/13/2016 Urinalysis Ord28 U-Yeast NEGATIVE 07/13/2016 Renal Opq308 NA 136 mEq/L 07/13/2016 Renal Ggu289 K 4.5 mEq/L 07/13/2016 Renal Cwr048 CL 102 mEq/L 07/13/2016 Renal Slh295 CO2 29.0 mEq/L 07/13/2016 Renal Xyc036 ANION GAP 10 07/13/2016 Renal Yjb201 Osmo 278 mOsmo 07/13/2016 Renal Pyj298 GLUCOSE 100 mg/dL 07/13/2016 Renal Rgf476 BUN 29 mg/dL 07/13/2016 Renal Wxw652 Creat 1.5 mg/dL 07/13/2016 Renal Ajb592 eGFR 36 ml/min/1.73m2 07/13/2016 Renal Tqn996 B/C Ratio 19.9 Ratio 07/13/2016 Renal Eei923 CALCIUM 9.6 mg/dL 07/13/2016 Renal Xsh080 PHOS 3.6 mg/dL 07/13/2016 Renal Ufg382 ALBUMIN 3.9 g/dL 07/13/2016 Random Urine Protein/Creatinine Ratio Eeo9407 U Prot 28.0 mg/dl 07/13/2016 Random Urine Protein/Creatinine Ratio Vrf9319 U CREAT 162.0 mg/dL 07/13/2016 Random Urine Protein/Creatinine Ratio Bay7455 R MTP/Creat Ratio 0.17 07/13/2016 Vitamin D 25 Oh Mgc9220 VITAMIN D, 25 HYDROXY 54.50 ng/mL Ferritin Ord22 FERRITIN 366.8 ng/mL 07/13/2016 Cbc With Differential Ord2 WBC 6.80 K/ul 06/10/2016 Cbc With Differential Ord2 RBC 3.29 M/ul 06/10/2016 Cbc With Differential Ord2 HGB 10.3 g/dl 06/10/2016 Cbc With Differential Ord2 Neut% 53.5 % 06/10/2016 Cbc With Differential Ord2 HCT 32.2 % 06/10/2016 Cbc With Differential Ord2 Lymph% 33.4 % 06/10/2016 Cbc With Differential Ord2 MCV 97.9 fl 06/10/2016 Cbc With Differential Ord2 [place]% 9.0 % 06/10/2016 Cbc With Differential Ord2 MCH 31.3 pg 06/10/2016 Cbc With Differential Ord2 MCHC 32.0 pg 06/10/2016 Cbc With Differential Ord2 Eos% 3.5 % 06/10/2016 Cbc With Differential Ord2 Baso% 0.6 % 06/10/2016 Cbc With Differential Ord2 PLT 178 K/ul 06/10/2016 Cbc With Differential Ord2 Neut ABS# 3.64 K/ul 06/10/2016 Cbc With Differential Ord2 RDW 14.0 % 06/10/2016 Cbc With Differential Ord2 Lymph ABS# 2.27 K/ul 06/10/2016 Cbc With Differential Ord2 [place] ABS# 0.6 K/ul 06/10/2016 Cbc With Differential Ord2 Eos ABS# 0.2 K/ul 06/10/2016 Cbc With Differential Ord2 Baso ABS# 0.0 K/ul 06/10/2016 Comp Metabolic Lqv038 NA 137 mEq/L 06/10/2016 Comp Metabolic Sab786 K 4.8 mEq/L 06/10/2016 Comp Metabolic Gnt537 CL 103 mEq/L 06/10/2016 Comp Metabolic Dka122 CO2 30.0 mEq/L 06/10/2016 Comp Metabolic Iby299 ANION GAP 9 06/10/2016 Comp Metabolic Zfv945 GLUCOSE 93 mg/dL 06/10/2016 Comp Metabolic Jit444 Creat 1.6 mg/dL 06/10/2016 Comp Metabolic Wzo420 eGFR 32 ml/min/1.73m2 06/10/2016 Comp Metabolic Doy008 BUN 30 mg/dL 06/10/2016 Comp Metabolic Ebe874 B/C Ratio 18.5 Ratio 06/10/2016 Comp Metabolic Gak209 CALCIUM 9.1 mg/dL 06/10/2016 Comp Metabolic Foo936 ALK PHOS 34 U/L 06/10/2016 Comp Metabolic Apg362 AST(SGOT) 26 U/L 06/10/2016 Comp Metabolic Xgj615 ALT(SGPT) 13 U/L 06/10/2016 Comp Metabolic Qkm176 BILI T 0.5 mg/dL 06/10/2016 Comp Metabolic Lra029 ALBUMIN 4.0 g/dL 06/10/2016 Comp Metabolic Vii917 TPRO 6.7 g/dL 06/10/2016 Comp Metabolic Qyz663 GLOB 2.7 g/dL 06/10/2016 Comp Metabolic Vsq296 A/G Ratio 1.5 Ratio 06/10/2016 Comp Metabolic Yue912 Osmo 280 mOsmo 06/10/2016 Culture Urine [id number] URINE CULTURE SEE NOTES 05/16/2016 Culture Urine [id number] Continued Results 05/16/2016 Urine Culture Ucult Complete >100,000 col/ml aerobic growth sent to ref lab 05/13/2016 Cbc With Differential Ord2 WBC 7.13 K/ul 05/12/2016 Cbc With Differential Ord2 RBC 3.20 M/ul 05/12/2016 Cbc With Differential Ord2 HGB 9.9 g/dl 05/12/2016 Cbc With Differential Ord2 Neut% 58.7 % 05/12/2016 Cbc With Differential Ord2 HCT 32.1 % 05/12/2016 Cbc With Differential Ord2 Lymph% 28.9 % 05/12/2016 Cbc With Differential Ord2 MCV 100.3 fl 05/12/2016 Cbc With Differential Ord2 MCH 30.9 pg 05/12/2016 Cbc With Differential Ord2 [place]% 9.1 % 05/12/2016 Cbc With Differential Ord2 MCHC 30.8 pg 05/12/2016 Cbc With Differential Ord2 Eos% 2.9 % 05/12/2016 Cbc With Differential Ord2 PLT 175 K/ul 05/12/2016 Cbc With Differential Ord2 Baso% 0.4 % 05/12/2016 Cbc With Differential Ord2 Neut ABS# 4.18 K/ul 05/12/2016 Cbc With Differential Ord2 RDW 14.4 % 05/12/2016 Cbc With Differential Ord2 Lymph ABS# 2.06 K/ul 05/12/2016 Cbc With Differential Ord2 [place] ABS# 0.7 K/ul 05/12/2016 Cbc With Differential Ord2 Eos ABS# 0.2 K/ul 05/12/2016 Cbc With Differential Ord2 Baso ABS# 0.0 K/ul 05/12/2016 Tsh Ord6 hTSH II 0.59 uIU/mL 05/12/2016 Comp Metabolic Zvq401 NA 138 mEq/L 05/12/2016 Comp Metabolic Qky168 K 4.3 mEq/L 05/12/2016 Comp Metabolic Umc938 CL 105 mEq/L 05/12/2016 Comp Metabolic Yhf483 CO2 31.0 mEq/L 05/12/2016 Comp Metabolic Xvz101 ANION GAP 6 05/12/2016 Comp Metabolic Shl627 GLUCOSE 88 mg/dL 05/12/2016 Comp Metabolic Sir717 Creat 1.4 mg/dL 05/12/2016 Comp Metabolic Eso047 eGFR 37 ml/min/1.73m2 05/12/2016 Comp Metabolic Bwh519 BUN 31 mg/dL 05/12/2016 Comp Metabolic Wtg008 B/C Ratio 21.5 Ratio 05/12/2016 Comp Metabolic Djv808 CALCIUM 9.0 mg/dL 05/12/2016 Comp Metabolic Ekx990 ALK PHOS 28 U/L 05/12/2016 Comp Metabolic Svz608 AST(SGOT) 26 U/L 05/12/2016 Comp Metabolic Icr119 ALT(SGPT) 15 U/L 05/12/2016 Comp Metabolic Kcz044 BILI T 0.5 mg/dL 05/12/2016 Comp Metabolic Ibm804 ALBUMIN 3.9 g/dL 05/12/2016 Comp Metabolic Fei104 TPRO 6.5 g/dL 05/12/2016 Comp Metabolic Jwl951 GLOB 2.6 g/dL 05/12/2016 Comp Metabolic Plu536 A/G Ratio 1.5 Ratio 05/12/2016 Comp Metabolic Axp218 Osmo 282 mOsmo 05/12/2016 Urinalysis Ord28 U-Color Yellow 05/12/2016 Urinalysis Ord28 U-Clarity Slightly Cloudy 05/12/2016 Urinalysis Ord28 U-Gluc Negative 05/12/2016 Urinalysis Ord28 U-Bili Negative 05/12/2016 Urinalysis Ord28 U-Ketone Negative 05/12/2016 Urinalysis Ord28 U-SG 1.020 05/12/2016 Urinalysis Ord28 U-Blood Negative 05/12/2016 Urinalysis Ord28 U-pH 5.0 05/12/2016 Urinalysis Ord28 U-Protein 30 mg/dL 05/12/2016 Urinalysis Ord28 U-Urobilin 0.2 E.U./dL E.U./dL 05/12/2016 Urinalysis Ord28 U-Nitrites Negative 05/12/2016 Urinalysis Ord28 U-Leuk Small 05/12/2016 Urinalysis Ord28 U-Bact 4+ 05/12/2016 Urinalysis Ord28 U-Squamous Epi 0-5 per/HPF 05/12/2016 Urinalysis Ord28 U-Crystal None per/HPF 05/12/2016 Urinalysis Ord28 U-Mucus None 05/12/2016 Urinalysis Ord28 U-Renal tubular epi None 05/12/2016 Urinalysis Ord28 U-RBC None per/HPF 05/12/2016 Urinalysis Ord28 U-Transitional epi None per/HPF 05/12/2016 Urinalysis Ord28 U-WBC 40-50 per/HPF 05/12/2016 Urinalysis Ord28 U-Cast None per/HPF 05/12/2016 Urinalysis Ord28 U-VOL VOLUME SUFFICIENT (10mL) 05/12/2016 Urinalysis Ord28 U-Yeast NEGATIVE 05/12/2016 Urinalysis Ord28 U-Com Culture to follow 05/12/2016 Culture Urine [id number] URINE CULTURE SEE NOTES 01/08/2016 Culture Urine [id number] Continued Results 01/08/2016 Urine Culture Ucult Complete >100,000 col/ml aerobic growth sent to ref lab 01/05/2016 Phosphorus Ord71 PHOS 2.8 mg/dL 01/04/2016 Urinalysis Ord28 U-Color Yellow 01/04/2016 Urinalysis Ord28 U-Clarity Clear 01/04/2016 Urinalysis Ord28 U-Gluc Negative 01/04/2016 Urinalysis Ord28 U-Bili Negative 01/04/2016 Urinalysis Ord28 U-Ketone Negative 01/04/2016 Urinalysis Ord28 U-SG 1.020 01/04/2016 Urinalysis Ord28 U-Blood Negative 01/04/2016 Urinalysis Ord28 U-pH 5.5 01/04/2016 Urinalysis Ord28 U-Protein 30 mg/dL 01/04/2016 Urinalysis Ord28 U-Urobilin 0.2 E.U./dL E.U./dL 01/04/2016 Urinalysis Ord28 U-Nitrites Negative 01/04/2016 Urinalysis Ord28 U-Leuk Small 01/04/2016 Urinalysis Ord28 U-Bact 4+ 01/04/2016 Urinalysis Ord28 U-Squamous Epi None per/HPF 01/04/2016 Urinalysis Ord28 U-Crystal None per/HPF 01/04/2016 Urinalysis Ord28 U-Mucus None 01/04/2016 Urinalysis Ord28 U-Renal tubular epi None 01/04/2016 Urinalysis Ord28 U-RBC None per/HPF 01/04/2016 Urinalysis Ord28 U-Transitional epi None per/HPF 01/04/2016 Urinalysis Ord28 U-WBC 30-40 per/HPF 01/04/2016 Urinalysis Ord28 U-Cast None per/HPF 01/04/2016 Urinalysis Ord28 U-VOL VOLUME SUFFICIENT (10mL) 01/04/2016 Urinalysis Ord28 U-Yeast NEGATIVE 01/04/2016 Urinalysis Ord28 U-Com Urine saved if culture needed (specimen acceptable for 48 hours from collection if refrigerated) 01/04/2016 Cbc With Differential Ord2 WBC 6.00 K/ul 01/04/2016 Cbc With Differential Ord2 RBC 3.41 M/ul 01/04/2016 Cbc With Differential Ord2 HGB 10.5 g/dl 01/04/2016 Cbc With Differential Ord2 HCT 33.5 % 01/04/2016 Cbc With Differential Ord2 Neut% 50.6 % 01/04/2016 Cbc With Differential Ord2 Lymph% 37.7 % 01/04/2016 Cbc With Differential Ord2 MCV 98.2 fl 01/04/2016 Cbc With Differential Ord2 [place]% 8.7 % 01/04/2016 Cbc With Differential Ord2 MCH 30.8 pg 01/04/2016 Cbc With Differential Ord2 Eos% 2.5 % 01/04/2016 Cbc With Differential Ord2 MCHC 31.3 pg 01/04/2016 Cbc With Differential Ord2 Baso% 0.5 % 01/04/2016 Cbc With Differential Ord2 PLT 178 K/ul 01/04/2016 Cbc With Differential Ord2 RDW 14.3 % 01/04/2016 Cbc With Differential Ord2 Neut ABS# 3.04 K/ul 01/04/2016 Cbc With Differential Ord2 Lymph ABS# 2.26 K/ul 01/04/2016 Cbc With Differential Ord2 [place] ABS# 0.5 K/ul 01/04/2016 Cbc With Differential Ord2 Eos ABS# 0.2 K/ul 01/04/2016 Cbc With Differential Ord2 Baso ABS# 0.0 K/ul 01/04/2016 Cbc With Differential Ord2 New Analyzer Notice Please note new ref ranges starting 10-28-2015 due to implemntation of new five part differential hematolgy analyzer. 01/04/2016 Lipid Ord30 CHOL 159 mg/dL 01/04/2016 Lipid Ord30 HDL 65.0 mg/dl 01/04/2016 Lipid Ord30 TRIG 120 mg/dL 01/04/2016 Lipid Ord30 LDL 70 mg/dL 01/04/2016 Lipid Ord30 C/HDL 2.4 Ratio 01/04/2016 Tsh Ord6 hTSH II 1.11 uIU/mL 01/04/2016 Comp Metabolic Isb572 NA 138 mEq/L 01/04/2016 Comp Metabolic Tva226 K 4.4 mEq/L 01/04/2016 Comp Metabolic Izk639 CL 102 mEq/L 01/04/2016 Comp Metabolic Wff737 CO2 29.0 mEq/L 01/04/2016 Comp Metabolic Jsx533 ANION GAP 11 01/04/2016 Comp Metabolic Azg056 GLUCOSE 86 mg/dL 01/04/2016 Comp Metabolic Jes389 Creat 1.3 mg/dL 01/04/2016 Comp Metabolic Pxq894 eGFR 43 ml/min/1.73m2 01/04/2016 Comp Metabolic Gdo339 BUN 27 mg/dL 01/04/2016 Comp Metabolic Ppa282 B/C Ratio 21.4 Ratio 01/04/2016 Comp Metabolic Wiu223 CALCIUM 9.5 mg/dL 01/04/2016 Comp Metabolic Zxq545 ALK PHOS 31 U/L 01/04/2016 Comp Metabolic Qfu481 AST(SGOT) 30 U/L 01/04/2016 Comp Metabolic Bel475 ALT(SGPT) 17 U/L 01/04/2016 Comp Metabolic Fna940 BILI T 0.5 mg/dL 01/04/2016 Comp Metabolic Hdc332 ALBUMIN 4.2 g/dL 01/04/2016 Comp Metabolic Mxj575 TPRO 7.0 g/dL 01/04/2016 Comp Metabolic Vqv998 GLOB 2.8 g/dL 01/04/2016 Comp Metabolic Mbs489 A/G Ratio 1.5 Ratio 01/04/2016 Comp Metabolic Tvh777 Osmo 280 mOsmo 01/04/2016 Random Urine Protein/Creatinine Ratio Qbz5048 U Prot 43.8 mg/dl 01/04/2016 Random Urine Protein/Creatinine Ratio Ypp6286 U CREAT 80.0 mg/dL 01/04/2016 Random Urine Protein/Creatinine Ratio Xdk9537 R MTP/Creat Ratio 0.55 01/04/2016 ESR [id number] ESR 2 MM/HR 12/03/2013 TSH [id number] TSH 0.918 uIU/ML 12/03/2013 CHEM 14 20280419 AST 27 U/L 12/03/2013 CHEM 14 20280419 ALT 15 IU/L 12/03/2013 CHEM 14 20280419 BUN 39 MG/DL 12/03/2013 CHEM 14 20280419 ALBUMIN 4.2 GM/DL 12/03/2013 CHEM 14 1104343 CHLORIDE 104 MMOL/L 12/03/2013 CHEM 14 20280419 BILI TOT 0.4 MG/DL 12/03/2013 CHEM 14 7199946 ALK PHOS 26 U/L 12/03/2013 CHEM 14 0984399 SODIUM 139 MMOL/L 12/03/2013 CHEM 14 5301567 CREATININE 1.51 MG/DL 12/03/2013 CHEM 14 6281335 CALCIUM 9.7 MG/DL 12/03/2013 CHEM 14 5228938 POTASSIUM 4.2 MMOL/L 12/03/2013 CHEM 14 0120871 PROT TOT 7.0 GM/DL 12/03/2013 CHEM 14 5925220 GLUCOSE 92 MG/DL 12/03/2013 CHEM 14 6153851 BICARB 31 MMOL/L 12/03/2013 CHEM 14 2533134 ANION GAP 4 MEQ/L 12/03/2013 CBC 4822035 WBC 6.0 10e9/L 12/03/2013 CBC [id number] RBC 3.86 10e12/L 12/03/2013 CBC 0700488 HGB 11.4 g/dL 12/03/2013 CBC 2458967 HCT DET 36.3 % 12/03/2013 CBC [id number] MCV 94.0 fL 12/03/2013 CBC [id number] MCH 29.5 pg 12/03/2013 CBC 7103883 MCHC 31.4 g/dL 12/03/2013 CBC 6104170 PLT 100 10e9/L 12/03/2013 CBC [id number] MPV 12.3 fL 12/03/2013 CBC [id number] JAMES % 51.5 % 12/03/2013 CBC [id number] LY % 34.5 % 12/03/2013 CBC [id number] MON % 9.7 % 12/03/2013 CBC 3599930 EOS % 3.8 % 12/03/2013 CBC [id number] BASO % 0.5 % 12/03/2013 CBC [id number] RDW 14.2 % 12/03/2013 CBC [id number] ABS JAMES 3.09 10e9/L 12/03/2013 CBC [id number] ABS LYMPH 2.07 10e9/L 12/03/2013 CBC [id number] ABS MONO 0.58 10e9/L 12/03/2013 CBC [id number] ABS EOS 0.23 10e9/L 12/03/2013 CBC 6691507 ABS BASO 0.03 10e9/L 12/03/2013 CBC [id number] RDW-SD 47.7 fL 12/03/2013 CRP 6341321 CRP 0.1 MG/DL 12/03/2013 GFR CALC 4241762 GFR AA 40.0L ML/MIN 12/03/2013 GFR CALC [id number] GFR NON-AA 33.0L ML/MIN 12/03/2013 ICT OCCULT [id number] ICT OCCULT NEG 11/29/2013 CBC [id number] WBC 5.7 10e9/L 10/02/2013 CBC [id number] RBC 3.61 10e12/L 10/02/2013 CBC [id number] HGB 10.8 g/dL 10/02/2013 CBC [id number] HCT DET 33.9 % 10/02/2013 CBC [id number] MCV 93.9 fL 10/02/2013 CBC [id number] MCH 29.9 pg 10/02/2013 CBC [id number] MCHC 31.9 g/dL 10/02/2013 CBC 1113735 PLT 210 10e9/L 10/02/2013 CBC [id number] MPV 11.8 fL 10/02/2013 CBC [id number] JAMES % 41.4 % 10/02/2013 CBC [id number] LY % 40.9 % 10/02/2013 CBC [id number] MON % 10.7 % 10/02/2013 CBC [id number] EOS % 6.1 % 10/02/2013 CBC [id number] BASO % 0.9 % 10/02/2013 CBC [id number] RDW 14.6 % 10/02/2013 CBC [id number] ABS JAMES 2.36 10e9/L 10/02/2013 CBC [id number] ABS LYMPH 2.33 10e9/L 10/02/2013 CBC [id number] ABS MONO 0.61 10e9/L 10/02/2013 CBC [id number] ABS EOS 0.35 10e9/L 10/02/2013 CBC [id number] ABS BASO 0.05 10e9/L 10/02/2013 CBC [id number] RDW-SD 48.3 fL 10/02/2013 LIPID GRP HDL TEST 75 MG/DL 10/02/2013 LIPID GRP TRIG 114 MG/DL 10/02/2013 LIPID GRP TEST LDL 81 MG/DL 10/02/2013 LIPID GRP CHOL 179 MG/DL 10/02/2013 LIPID GRP RCHOL/HDL 2.39 RATIO 10/02/2013 CHEM 14 [id number] AST 24 U/L 10/02/2013 CHEM 14 0547747 ALT 14 IU/L 10/02/2013 CHEM 14 5714962 BUN 32 MG/DL 10/02/2013 CHEM 14 2956937 ALBUMIN 4.4 GM/DL 10/02/2013 CHEM 14 6964235 CHLORIDE 102 MMOL/L 10/02/2013 CHEM 14 3406005 BILI TOT 0.4 MG/DL 10/02/2013 CHEM 14 5146255 ALK PHOS 25 U/L 10/02/2013 CHEM 14 4134233 SODIUM 139 MMOL/L 10/02/2013 CHEM 14 2288570 CREATININE 1.52 MG/DL 10/02/2013 CHEM 14 6203624 CALCIUM 9.7 MG/DL 10/02/2013 CHEM 14 6415923 POTASSIUM 4.2 MMOL/L 10/02/2013 CHEM 14 9859257 PROT TOT 6.7 GM/DL 10/02/2013 CHEM 14 7051127 GLUCOSE 99 MG/DL 10/02/2013 CHEM 14 6198347 BICARB 31 MMOL/L 10/02/2013 CHEM 14 0673331 ANION GAP 6 MEQ/L 10/02/2013 GFR CALC 1493793 GFR AA 40.0L ML/MIN 10/02/2013 GFR CALC 7090520 GFR NON-AA 33.0L ML/MIN 10/02/2013 CHEM 14 8547083 AST 31 U/L 01/17/2013 CHEM 14 1356294 ALT 19 IU/L 01/17/2013 CHEM 14 0898360 BUN 28 MG/DL 01/17/2013 CHEM 14 9060316 ALBUMIN 4.2 GM/DL 01/17/2013 CHEM 14 9617728 CHLORIDE 103 MMOL/L 01/17/2013 CHEM 14 4652591 BILI TOT 0.3 MG/DL 01/17/2013 CHEM 14 0920752 ALK PHOS 48 U/L 01/17/2013 CHEM 14 5766829 SODIUM 136 MMOL/L 01/17/2013 CHEM 14 3047842 CREATININE 1.51 MG/DL 01/17/2013 CHEM 14 4289293 CALCIUM 9.0 MG/DL 01/17/2013 CHEM 14 6219862 POTASSIUM 4.5 MMOL/L 01/17/2013 CHEM 14 9392603 PROT TOT 7.1 GM/DL 01/17/2013 CHEM 14 5915462 GLUCOSE 97 MG/DL 01/17/2013 CHEM 14 6849665 BICARB 26 MMOL/L 01/17/2013 CHEM 14 1570691 ANION GAP 7 MEQ/L 01/17/2013 FERRITIN 0642801 FERRITIN 96 NG/ML 01/17/2013 GFR CALC 4950302 GFR AA 40.0L ML/MIN 01/17/2013 GFR CALC 2757277 GFR NON-AA 33.0L ML/MIN 01/17/2013 %SAT/TIBC 7570188 TIBC 300 UG/DL 01/17/2013 %SAT/TIBC 9587747 % SATURAT 10 % 01/17/2013 %SAT/TIBC 2348899 UIBC 269 MCG/DL 01/17/2013 CBC 0894910 WBC 5.0 10e9/L 01/17/2013 CBC 7372068 RBC 3.83 10e12/L 01/17/2013 CBC 3670485 HGB 11.3 g/dL 01/17/2013 CBC 3799764 HCT DET 35.2 % 01/17/2013 CBC 2287334 MCV 91.9 fL 01/17/2013 CBC 0754341 MCH 29.5 pg 01/17/2013 CBC 6059674 MCHC 32.1 g/dL 01/17/2013 CBC 4266521 PLT 174 10e9/L 01/17/2013 CBC 7784131 MPV 12.2 fL 01/17/2013 CBC 6316929 JAMES % 45.4 % 01/17/2013 CBC [id number] LY % 38.0 % 01/17/2013 CBC 7274797 MON % 13.0 % 01/17/2013 CBC 4748559 EOS % 3.4 % 01/17/2013 CBC 0743905 BASO % 0.2 % 01/17/2013 CBC 5822079 RDW 14.5 % 01/17/2013 CBC 8304427 ABS JAMES 2.27 10e9/L 01/17/2013 CBC [id number] ABS LYMPH 1.90 10e9/L 01/17/2013 CBC 9141049 ABS MONO 0.65 10e9/L 01/17/2013 CBC 4020109 ABS EOS 0.17 10e9/L 01/17/2013 CBC [id number] ABS BASO 0.01 10e9/L 01/17/2013 CBC [id number] RDW-SD 47.7 fL 01/17/2013 IRON TEST [id number] IRON TEST 31 UG/DL 01/17/2013 CHEM 14 7517497 AST 25 U/L 05/10/2012 CHEM 14 4370302 ALT 15 U/L 05/10/2012 CHEM 14 3251725 BUN 28 MG/DL 05/10/2012 CHEM 14 8983048 ALBUMIN 4.3 GM/DL 05/10/2012 CHEM 14 6488524 CHLORIDE 100 MMOL/L 05/10/2012 CHEM 14 0534930 BILI TOT 0.3 MG/DL 05/10/2012 CHEM 14 4215485 ALK PHOS 38 U/L 05/10/2012 CHEM 14 8008441 SODIUM 137 MMOL/L 05/10/2012 CHEM 14 0166634 CREATININE 1.56 MG/DL 05/10/2012 CHEM 14 6638126 CALCIUM 9.5 MG/DL 05/10/2012 CHEM 14 4797864 POTASSIUM 4.5 MMOL/L 05/10/2012 CHEM 14 3892435 PROT TOT 7.1 GM/DL 05/10/2012 CHEM 14 4340467 GLUCOSE 94 MG/DL 05/10/2012 CHEM 14 2820623 BICARB 29 MMOL/L 05/10/2012 CHEM 14 0975545 ANION GAP 8 MMOL/L 05/10/2012 GFR CALC 0847339 GFR AA 39.0L ML/MIN 05/10/2012 GFR CALC 1003049 GFR NON-AA 32.0L ML/MIN 05/10/2012 BMP 4115259 GLUCOSE 102 MG/DL 02/28/2012 BMP 1264722 CREATININE 1.52 MG/DL 02/28/2012 BMP 8025329 BUN 41 MG/DL 02/28/2012 BMP 1585848 SODIUM 139 MMOL/L 02/28/2012 BMP 5086544 POTASSIUM 4.9 MMOL/L 02/28/2012 BMP 0283840 CHLORIDE 104 MMOL/L 02/28/2012 BMP 0548437 BICARB 31 MMOL/L 02/28/2012 BMP 4076218 ANION GAP 4 MEQ/L 02/28/2012 BMP 2482255 CALCIUM 9.3 MG/DL 02/28/2012 GFR CALC 0732997 GFR AA 40.0L ML/MIN 02/28/2012 GFR CALC 3541272 GFR NON-AA 33.0L ML/MIN 02/28/2012 URINALYSIS NONAUTO W/O SCOPE 33915 Specific [place] 1.025 DateTime(Free Text in Aprima) URINALYSIS NONAUTO W/O SCOPE 68651 PH 5/0 DateTime(Free Text in Aprima) URINALYSIS NONAUTO W/O SCOPE 62913 GLUCOSE neg DateTime( Free Text in Aprima) URINALYSIS NONAUTO W/O SCOPE 38051 Protein neg DateTime( Free Text in Aprima) URINALYSIS NONAUTO W/O SCOPE 33112 Blood neg DateTime(Free Text in Aprima) URINALYSIS NONAUTO W/O SCOPE 45323 Bilirubin neg DateTime(Free Text in Aprima) URINALYSIS NONAUTO W/O SCOPE 85670 Ketones neg DateTime( Free Text in Aprima) URINALYSIS NONAUTO W/O SCOPE 70038 Urobilinogen neg DateTime(Free Text in Aprima) URINALYSIS NONAUTO W/O SCOPE 52741 Nitrite neg DateTime( Free Text in Aprima) URINALYSIS NONAUTO W/O SCOPE 72901 Leukocytes trace DateTime(Free Text in Aprima) URINALYSIS NONAUTO W/O SCOPE 76467 Specific [place] 1.020 DateTime(Free Text in Aprima) URINALYSIS NONAUTO W/O SCOPE 29584 PH 6.0 DateTime(Free Text in Aprima) URINALYSIS NONAUTO W/O SCOPE 55864 GLUCOSE neg DateTime( Free Text in Aprima) URINALYSIS NONAUTO W/O SCOPE 48888 Protein trace DateTime(Free Text in Aprima) URINALYSIS NONAUTO W/O SCOPE 20026 Blood tracd DateTime(Free Text in Aprima) URINALYSIS NONAUTO W/O SCOPE 61584 Bilirubin postive DateTime(Free Text in Aprima) URINALYSIS NONAUTO W/O SCOPE 40660 Ketones neg DateTime( Free Text in Aprima) URINALYSIS NONAUTO W/O SCOPE 13018 Urobilinogen neg DateTime(Free Text in Aprima) URINALYSIS NONAUTO W/O SCOPE 41543 Nitrite neg DateTime( Free Text in Aprima) URINALYSIS NONAUTO W/O SCOPE 77144 Leukocytes 3+ DateTime(Free Text in Aprima) Review of Systems System Result Effective Dates Constitutional recent illness 08/22/2017 Constitutional No anorexia 08/22/2017 Constitutional No night sweats 2016 Constitutional No chills 08/22/2017 Constitutional No diaphoresis 08/22/2017 Constitutional fatigue 08/22/2017 Constitutional No fever 08/22/2017 Constitutional No insomnia 08/22/2017 Constitutional malaise 08/22/2017 Eyes No eye discharge 08/22/2017 Eyes No eye erythema 08/22/2017 Ears/Nose/Throat/Neck No headache 2016 Cardiovascular No chest pain/pressure 04/2017 Cardiovascular No edema 08/22/2017 Respiratory No cough 08/22/2017 Gastrointestinal No abdominal pain 2016 Gastrointestinal No constipation 2016 Gastrointestinal No diarrhea 08/22/2017 Genitourinary/Nephrology No dysuria 08/22 Musculoskeletal No joint complaint 2016 Dermatologic No rash 08/22/2017 Dermatologic No sores 08/22/2017 Neurologic No alteration of consciousness 08/22/2017 Psychiatric No anxiety 08/22/2017 Constitutional No recent illness 2016 Constitutional No chills 07/26/2017 Constitutional No diaphoresis 07/26/2017 Constitutional fatigue 07/26/2017 Constitutional No fever 07/26/2017 Eyes No eye erythema 07/26/2017 Ears/Nose/Throat/Neck No nasal discharge 07/26/2017 Ears/Nose/Throat/Neck No nasal allergies 07/26/2017 Cardiovascular No chest pain/pressure 08/2017 Cardiovascular No dyspnea 07/26/2017 Respiratory No dyspnea 07/26/2017 Respiratory No cough 07/26/2017 Gastrointestinal No abdominal pain 2016 Gastrointestinal No constipation 2016 Gastrointestinal diarrhea 07/26/2017 Gastrointestinal No vomiting 07/26/2017 Gastrointestinal No nausea 07/26/2017 Gastrointestinal hematochezia 07/26/2017 Neurologic No alteration of consciousness 07/26/2017 Constitutional No anorexia 06/27/2017 Constitutional No night sweats 2016 Constitutional No chills 06/27/2017 Constitutional No diaphoresis 06/27/2017 Constitutional fatigue 06/27/2017 Constitutional No fever 06/27/2017 Constitutional No insomnia 06/27/2017 Constitutional malaise 06/27/2017 Eyes No eye discharge 06/27/2017 Eyes No eye erythema 06/27/2017 Ears/Nose/Throat/Neck No headache 2016 Cardiovascular No chest pain/pressure 09/2017 Cardiovascular No edema 06/27/2017 Respiratory No cough 06/27/2017 Gastrointestinal No abdominal pain 2016 Gastrointestinal No constipation 2016 Genitourinary/Nephrology No dysuria 06/27 Musculoskeletal No joint complaint 2016 Dermatologic No rash 06/27/2017 Dermatologic No sores 06/27/2017 Neurologic No alteration of consciousness 06/27/2017 Psychiatric No anxiety 06/27/2017 Gastrointestinal No diarrhea 06/27/2017 Genitourinary/Nephrology urinary frequency 06/27/2017 Musculoskeletal muscle weakness 2016 Constitutional recent illness 05/23/2017 Constitutional No anorexia 05/23/2017 Constitutional No night sweats 2016 Constitutional No chills 05/23/2017 Constitutional No diaphoresis 05/23/2017 Constitutional fatigue 05/23/2017 Constitutional No fever 05/23/2017 Constitutional No insomnia 05/23/2017 Constitutional malaise 05/23/2017 Eyes No eye discharge 05/23/2017 Eyes No eye erythema 05/23/2017 Ears/Nose/Throat/Neck No headache 2016 Cardiovascular No chest pain/pressure 05/2017 Cardiovascular No edema 05/23/2017 Respiratory No cough 05/23/2017 Gastrointestinal abdominal pain 2016 Gastrointestinal No constipation 2016 Gastrointestinal diarrhea 05/23/2017 Genitourinary/Nephrology No dysuria 05/23 Musculoskeletal No joint complaint 2016 Dermatologic No rash 05/23/2017 Dermatologic sores 05/23/2017 Neurologic No alteration of consciousness 05/23/2017 Psychiatric No anxiety 05/23/2017 Constitutional recent illness 05/10/2017 Constitutional No anorexia 05/10/2017 Constitutional No night sweats 2016 Constitutional No chills 05/10/2017 Constitutional No diaphoresis 05/10/2017 Constitutional fatigue 05/10/2017 Constitutional No fever 05/10/2017 Constitutional No insomnia 05/10/2017 Constitutional malaise 05/10/2017 Eyes No eye discharge 05/10/2017 Eyes No eye erythema 05/10/2017 Ears/Nose/Throat/Neck No headache 2016 Cardiovascular No chest pain/pressure Cardiovascular No edema 05/10/2017 Respiratory No cough 05/10/2017 Gastrointestinal No abdominal pain 2016 Gastrointestinal No constipation 2016 Gastrointestinal No diarrhea 05/10/2017 Genitourinary/Nephrology No dysuria 05/10 Musculoskeletal No joint complaint 2016 Dermatologic No rash 05/10/2017 Dermatologic No sores 05/10/2017 Neurologic No alteration of consciousness 05/10/2017 Psychiatric No anxiety 05/10/2017 Constitutional recent illness 04/27/2017 Constitutional No anorexia 04/27/2017 Constitutional No night sweats 2016 Constitutional No chills 04/27/2017 Constitutional No diaphoresis 04/27/2017 Constitutional fatigue 04/27/2017 Constitutional No fever 04/27/2017 Constitutional No insomnia 04/27/2017 Constitutional malaise 04/27/2017 Eyes No eye discharge 04/27/2017 Eyes No eye erythema 04/27/2017 Ears/Nose/Throat/Neck No headache 2016 Cardiovascular No chest pain/pressure Cardiovascular No edema 04/27/2017 Respiratory No cough 04/27/2017 Gastrointestinal No abdominal pain 2016 Gastrointestinal No constipation 2016 Gastrointestinal No diarrhea 04/27/2017 Genitourinary/Nephrology No dysuria 04/27 Musculoskeletal No joint complaint 2016 Dermatologic No rash 04/27/2017 Dermatologic No sores 04/27/2017 Neurologic No alteration of consciousness 04/27/2017 Psychiatric No anxiety 04/27/2017 Constitutional No recent illness 2016 Constitutional No anorexia 03/30/2017 Constitutional No night sweats 2016 Constitutional No chills 03/30/2017 Constitutional No diaphoresis 03/30/2017 Constitutional fatigue 03/30/2017 Constitutional No fever 03/30/2017 Constitutional insomnia 03/30/2017 Constitutional No malaise 03/30/2017 Constitutional weight loss 03/30/2017 Eyes No eye pain 03/30/2017 Eyes No vision change 03/30/2017 Ears/Nose/Throat/Neck No dizziness 2016 Ears/Nose/Throat/Neck No headache 2016 Cardiovascular No chest pain/pressure Cardiovascular No dyspnea 03/30/2017 Respiratory No chest congestion 2016 Respiratory No cigarette smoking 2016 Respiratory No cough 03/30/2017 Gastrointestinal abdominal pain 2016 Gastrointestinal No constipation 2016 Gastrointestinal diarrhea 03/30/2017 Gastrointestinal No gas and bloating Genitourinary/Nephrology No anuria/oliguria 03/30/2017 Genitourinary/Nephrology No dysuria 03/30 Musculoskeletal stiffness 03/30/2017 Musculoskeletal swelling 03/30/2017 Musculoskeletal arthralgia(s) 03/30/2017 Musculoskeletal No back pain 03/30/2017 Dermatologic No rash 03/30/2017 Dermatologic No sores 03/30/2017 Neurologic No alteration of consciousness 03/30/2017 Neurologic No memory loss 03/30/2017 Psychiatric No anxiety 03/30/2017 Psychiatric No depression 03/30/2017 Endocrine No dry or coarse skin 2016 Endocrine No polydipsia 03/30/2017 Endocrine No polyuria 03/30/2017 Endocrine sweating 03/30/2017 Endocrine No weakness 03/30/2017 Hematologic/Lymphatic No abnormal ecchymoses 03/30/2017 Hematologic/Lymphatic No abnormal bleeding and bruising 03/30/2017 Constitutional No recent illness 2016 Constitutional No anorexia 02/27/2017 Constitutional No night sweats 2016 Constitutional No chills 02/27/2017 Constitutional No diaphoresis 02/27/2017 Constitutional fatigue 02/27/2017 Constitutional No fever 02/27/2017 Constitutional insomnia 02/27/2017 Constitutional No malaise 02/27/2017 Eyes No eye pain 02/27/2017 Eyes No vision change 02/27/2017 Ears/Nose/Throat/Neck No dizziness 2016 Ears/Nose/Throat/Neck No headache 2016 Cardiovascular No chest pain/pressure Cardiovascular No dyspnea 02/27/2017 Respiratory No chest congestion 2016 Respiratory No cigarette smoking 2016 Respiratory No cough 02/27/2017 Gastrointestinal abdominal pain 2016 Gastrointestinal No constipation 2016 Gastrointestinal diarrhea 02/27/2017 Gastrointestinal No gas and bloating Gastrointestinal nausea 02/27/2017 Gastrointestinal vomiting 02/27/2017 Genitourinary/Nephrology No anuria/oliguria 02/27/2017 Genitourinary/Nephrology No dysuria 02/27 Musculoskeletal stiffness 02/27/2017 Musculoskeletal swelling 02/27/2017 Musculoskeletal arthralgia(s) 02/27/2017 Musculoskeletal No back pain 02/27/2017 Dermatologic No rash 02/27/2017 Dermatologic No sores 02/27/2017 Neurologic No alteration of consciousness 02/27/2017 Neurologic No memory loss 02/27/2017 Psychiatric No anxiety 02/27/2017 Psychiatric No depression 02/27/2017 Endocrine No dry or coarse skin 2016 Endocrine No polydipsia 02/27/2017 Endocrine No polyuria 02/27/2017 Endocrine sweating 02/27/2017 Endocrine No weakness 02/27/2017 Hematologic/Lymphatic No abnormal ecchymoses 02/27/2017 Hematologic/Lymphatic No abnormal bleeding and bruising 02/27/2017 Constitutional weight loss 02/27/2017 Constitutional No recent illness 2016 Constitutional No night sweats 2016 Constitutional No anorexia 01/20/2017 Constitutional No chills 01/20/2017 Constitutional No diaphoresis 01/20/2017 Constitutional No fatigue 01/20/2017 Constitutional No fever 01/20/2017 Constitutional No insomnia 01/20/2017 Constitutional No malaise 01/20/2017 Constitutional weight loss 01/20/2017 Constitutional No weight gain 01/20/2017 Constitutional No obesity 01/20/2017 Eyes No eye pain 01/20/2017 Eyes No vision change 01/20/2017 Ears/Nose/Throat/Neck No dizziness 2016 Ears/Nose/Throat/Neck No headache 2016 Cardiovascular No chest pain/pressure 04/2017 Cardiovascular No dyspnea 01/20/2017 Respiratory No chest congestion 2016 Respiratory No cigarette smoking 2016 Respiratory No cough 01/20/2017 Gastrointestinal abdominal pain 2016 Gastrointestinal diarrhea 01/20/2017 Gastrointestinal No constipation 2016 Gastrointestinal No gas and bloating 04/2017 Gastrointestinal nausea 01/20/2017 Gastrointestinal vomiting 01/20/2017 Genitourinary/Nephrology No anuria/oliguria 01/20/2017 Genitourinary/Nephrology No dysuria 01/20 Musculoskeletal stiffness 01/20/2017 Musculoskeletal swelling 01/20/2017 Musculoskeletal No back pain 01/20/2017 Musculoskeletal arthralgia(s) 01/20/2017 Dermatologic No rash 01/20/2017 Dermatologic No sores 01/20/2017 Neurologic No alteration of consciousness 01/20/2017 Neurologic No memory loss 01/20/2017 Psychiatric No anxiety 01/20/2017 Psychiatric No depression 01/20/2017 Hematologic/Lymphatic No abnormal ecchymoses 01/20/2017 Hematologic/Lymphatic No abnormal bleeding and bruising 01/20/2017 Endocrine sweating 01/20/2017 Endocrine No dry or coarse skin 2016 Endocrine No polyuria 01/20/2017 Endocrine No polydipsia 01/20/2017 Endocrine No weakness 01/20/2017 Constitutional recent illness 01/03/2017 Constitutional No chills 01/03/2017 Constitutional No diaphoresis 01/03/2017 Constitutional No fever 01/03/2017 Eyes No eye discharge 01/03/2017 Eyes No eye erythema 01/03/2017 Cardiovascular No chest pain/pressure Respiratory cough 01/03/2017 Gastrointestinal No abdominal pain 2016 Gastrointestinal No constipation 2016 Gastrointestinal No diarrhea 01/03/2017 Musculoskeletal No joint complaint 2016 Dermatologic No rash 01/03/2017 Neurologic No alteration of consciousness 01/03/2017 Ears/Nose/Throat/Neck nasal allergies Ears/Nose/Throat/Neck nasal discharge Ears/Nose/Throat/Neck postnasal drip Respiratory chest congestion 01/03/2017 Respiratory dyspnea on exertion 2016 Respiratory No dyspnea 01/03/2017 Neurologic No mental status change 2016 Neurologic memory loss 01/03/2017 Constitutional No recent illness 2016 Constitutional No anorexia 12/16/2016 Constitutional No night sweats 2016 Constitutional No chills 12/16/2016 Constitutional No diaphoresis 12/16/2016 Constitutional No fatigue 12/16/2016 Constitutional No fever 12/16/2016 Constitutional No insomnia 12/16/2016 Constitutional No malaise 12/16/2016 Constitutional No weight loss 12/16/2016 Constitutional No weight gain 12/16/2016 Eyes No eye discharge 12/16/2016 Eyes No eye erythema 12/16/2016 Ears/Nose/Throat/Neck No dizziness 2016 Ears/Nose/Throat/Neck No headache 2016 Cardiovascular No chest pain/pressure 12/2016 Cardiovascular No edema 12/16/2016 Respiratory No cough 12/16/2016 Gastrointestinal No abdominal pain 2016 Gastrointestinal No constipation 2016 Gastrointestinal No diarrhea 12/16/2016 Genitourinary/Nephrology No dysuria 12/16 Musculoskeletal No joint complaint 2016 Dermatologic No rash 12/16/2016 Dermatologic No sores 12/16/2016 Neurologic No alteration of consciousness 12/16/2016 Neurologic memory loss 12/16/2016 Psychiatric No anxiety 12/16/2016 Endocrine No dry or coarse skin 2016 Hematologic/Lymphatic No abnormal ecchymoses 12/16/2016 Constitutional No recent illness 2016 Constitutional No anorexia 12/02/2016 Constitutional No night sweats 2016 Constitutional No chills 12/02/2016 Constitutional No diaphoresis 12/02/2016 Constitutional No fatigue 12/02/2016 Constitutional No fever 12/02/2016 Constitutional No insomnia 12/02/2016 Constitutional No malaise 12/02/2016 Constitutional No weight loss 12/02/2016 Constitutional No weight gain 12/02/2016 Eyes No eye discharge 12/02/2016 Eyes No eye erythema 12/02/2016 Ears/Nose/Throat/Neck No dizziness 2016 Ears/Nose/Throat/Neck No headache 2016 Cardiovascular No chest pain/pressure Cardiovascular No edema 12/02/2016 Respiratory No cough 12/02/2016 Gastrointestinal No abdominal pain 2016 Gastrointestinal No constipation 2016 Gastrointestinal No diarrhea 12/02/2016 Genitourinary/Nephrology No dysuria 12/02 Musculoskeletal No joint complaint 2016 Dermatologic No rash 12/02/2016 Dermatologic No sores 12/02/2016 Neurologic No alteration of consciousness 12/02/2016 Psychiatric No anxiety 12/02/2016 Endocrine No dry or coarse skin 2016 Hematologic/Lymphatic No abnormal ecchymoses 12/02/2016 Neurologic memory loss 12/02/2016 Constitutional No recent illness 2016 Constitutional No anorexia 10/27/2016 Constitutional No night sweats 2016 Constitutional No chills 10/27/2016 Constitutional No diaphoresis 10/27/2016 Constitutional No fatigue 10/27/2016 Constitutional No fever 10/27/2016 Constitutional No insomnia 10/27/2016 Constitutional No malaise 10/27/2016 Constitutional No weight loss 10/27/2016 Constitutional No weight gain 10/27/2016 Eyes No eye discharge 10/27/2016 Eyes No eye erythema 10/27/2016 Ears/Nose/Throat/Neck No dizziness 2016 Ears/Nose/Throat/Neck No headache 2016 Cardiovascular No chest pain/pressure 09/2017 Cardiovascular No edema 10/27/2016 Respiratory No cough 10/27/2016 Gastrointestinal No abdominal pain 2016 Gastrointestinal No constipation 2016 Gastrointestinal No diarrhea 10/27/2016 Genitourinary/Nephrology No dysuria 10/27 Musculoskeletal No joint complaint 2016 Dermatologic No rash 10/27/2016 Dermatologic No sores 10/27/2016 Neurologic No alteration of consciousness 10/27/2016 Psychiatric No anxiety 10/27/2016 Endocrine No dry or coarse skin 2016 Hematologic/Lymphatic No abnormal ecchymoses 10/27/2016 Constitutional No recent illness 2015 Constitutional No anorexia 09/01/2016 Constitutional No night sweats 2015 Constitutional No chills 09/01/2016 Constitutional No diaphoresis 09/01/2016 Constitutional No fatigue 09/01/2016 Constitutional No fever 09/01/2016 Constitutional No insomnia 09/01/2016 Constitutional No malaise 09/01/2016 Constitutional No weight loss 09/01/2016 Constitutional No weight gain 09/01/2016 Eyes No eye discharge 09/01/2016 Eyes No eye erythema 09/01/2016 Ears/Nose/Throat/Neck No headache 2015 Cardiovascular No chest pain/pressure Cardiovascular No edema 09/01/2016 Respiratory No cough 09/01/2016 Gastrointestinal No abdominal pain 2015 Gastrointestinal No constipation 2015 Gastrointestinal No diarrhea 09/01/2016 Genitourinary/Nephrology No dysuria 09/01 Musculoskeletal No joint complaint 2015 Dermatologic No rash 09/01/2016 Dermatologic No sores 09/01/2016 Neurologic No alteration of consciousness 09/01/2016 Psychiatric No anxiety 09/01/2016 Endocrine No dry or coarse skin 2015 Hematologic/Lymphatic No abnormal ecchymoses 09/01/2016 Ears/Nose/Throat/Neck No dizziness 2015 Constitutional No recent illness 2015 Constitutional No anorexia 06/10/2016 Constitutional No night sweats 2015 Constitutional No chills 06/10/2016 Constitutional No diaphoresis 06/10/2016 Constitutional No fatigue 06/10/2016 Constitutional No fever 06/10/2016 Constitutional No insomnia 06/10/2016 Constitutional No malaise 06/10/2016 Constitutional No weight loss 06/10/2016 Constitutional No weight gain 06/10/2016 Eyes No eye discharge 06/10/2016 Eyes No eye erythema 06/10/2016 Ears/Nose/Throat/Neck No headache 2015 Cardiovascular No chest pain/pressure Cardiovascular No edema 06/10/2016 Respiratory No cough 06/10/2016 Gastrointestinal No abdominal pain 2015 Gastrointestinal No constipation 2015 Gastrointestinal No diarrhea 06/10/2016 Genitourinary/Nephrology No dysuria 06/10 Musculoskeletal No joint complaint 2015 Dermatologic No rash 06/10/2016 Dermatologic No sores 06/10/2016 Neurologic No alteration of consciousness 06/10/2016 Psychiatric No anxiety 06/10/2016 Endocrine No dry or coarse skin 2015 Hematologic/Lymphatic No abnormal ecchymoses 06/10/2016 Constitutional No recent illness 2015 Constitutional No anorexia 05/12/2016 Constitutional No night sweats 2015 Constitutional No chills 05/12/2016 Constitutional No diaphoresis 05/12/2016 Constitutional No fatigue 05/12/2016 Constitutional No fever 05/12/2016 Constitutional No insomnia 05/12/2016 Constitutional No malaise 05/12/2016 Constitutional No weight loss 05/12/2016 Constitutional No weight gain 05/12/2016 Constitutional No obesity 05/12/2016 Eyes No eye discharge 05/12/2016 Eyes No eye floaters 05/12/2016 Eyes No eye pain 05/12/2016 Eyes No vision change 05/12/2016 Ears/Nose/Throat/Neck No headache 2015 Ears/Nose/Throat/Neck nasal discharge Ears/Nose/Throat/Neck No otalgia 2015 Ears/Nose/Throat/Neck No otitis media Ears/Nose/Throat/Neck No sinus congestion 05/12/2016 Ears/Nose/Throat/Neck No sore throat Cardiovascular No chest pain/pressure Cardiovascular hypertension 05/12/2016 Respiratory No chest congestion 2015 Respiratory No chest tightness 2015 Respiratory No cigarette smoking 2015 Respiratory cough 05/12/2016 Respiratory No dyspnea on exertion 2015 Respiratory No dyspnea 05/12/2016 Gastrointestinal No constipation 2015 Gastrointestinal diarrhea 05/12/2016 Gastrointestinal gastroesophageal reflux 05/12/2016 Dermatologic No rash 05/12/2016 Dermatologic No sores 05/12/2016 Gastrointestinal abdominal pain 2015 Gastrointestinal dyspepsia 05/12/2016 Gastrointestinal No vomiting 05/12/2016 Gastrointestinal No nausea 05/12/2016 Ears/Nose/Throat/Neck nasal allergies Genitourinary/Nephrology No dysuria 05/12 Musculoskeletal joint complaint 2015 Neurologic No alteration of consciousness 05/12/2016 Neurologic memory loss 05/12/2016 Psychiatric No anxiety 05/12/2016 Psychiatric depression 05/12/2016 Respiratory cough 01/07/2016 Respiratory No chest congestion 2015 Respiratory No chest tightness 2015 Respiratory No cigarette smoking 2015 Respiratory No productive sputum 2015 Respiratory No dyspnea 01/07/2016 Respiratory No dyspnea on exertion 2015 Gastrointestinal No constipation 2015 Gastrointestinal No diarrhea 01/07/2016 Genitourinary/Nephrology No dysuria 01/06 Cardiovascular No dyspnea 01/07/2016 Cardiovascular No chest pain/pressure Ears/Nose/Throat/Neck nasal discharge Ears/Nose/Throat/Neck nasal allergies Ears/Nose/Throat/Neck No sore throat Constitutional No recent illness 2015 Constitutional No anorexia 01/07/2016 Constitutional No night sweats 2015 Constitutional No chills 01/07/2016 Constitutional No diaphoresis 01/07/2016 Constitutional No fatigue 01/07/2016 Constitutional No fever 01/07/2016 Constitutional No insomnia 01/07/2016 Constitutional No malaise 01/07/2016 Constitutional No weight loss 01/07/2016 Constitutional No weight gain 01/07/2016 Constitutional No obesity 01/07/2016 Eyes No eye discharge 01/07/2016 Eyes No eye erythema 01/07/2016 Musculoskeletal No joint complaint 2015 Musculoskeletal No muscle weakness 2015 Musculoskeletal No myalgias 01/07/2016 Psychiatric No anxiety 01/07/2016 Musculoskeletal arthralgia(s) 01/07/2016 Dermatologic No rash 01/07/2016 Dermatologic No sores 01/07/2016 Constitutional No recent illness 2015 Constitutional No anorexia 12/10/2015 Constitutional No night sweats 2015 Constitutional No chills 12/10/2015 Constitutional No diaphoresis 12/10/2015 Constitutional No fatigue 12/10/2015 Constitutional No fever 12/10/2015 Constitutional No insomnia 12/10/2015 Constitutional No malaise 12/10/2015 Constitutional No weight loss 12/10/2015 Constitutional No weight gain 12/10/2015 Constitutional No obesity 12/10/2015 Eyes No eye discharge 12/10/2015 Eyes No eye pain 12/10/2015 Eyes No eye floaters 12/10/2015 Eyes No vision change 12/10/2015 Ears/Nose/Throat/Neck nasal discharge Ears/Nose/Throat/Neck nasal allergies Ears/Nose/Throat/Neck No headache 2015 Ears/Nose/Throat/Neck No otalgia 2015 Ears/Nose/Throat/Neck No otitis media Ears/Nose/Throat/Neck No sinus congestion 12/10/2015 Ears/Nose/Throat/Neck No sore throat Cardiovascular No chest pain/pressure Cardiovascular hypertension 12/10/2015 Respiratory No cough 12/10/2015 Respiratory No cigarette smoking 2015 Respiratory No chest tightness 2015 Respiratory No chest congestion 2015 Respiratory No dyspnea 12/10/2015 Respiratory No dyspnea on exertion 2015 Dermatologic No rash 12/10/2015 Dermatologic No sores 12/10/2015 Gastrointestinal gastroesophageal reflux 12/10/2015 Gastrointestinal No diarrhea 12/10/2015 Gastrointestinal No constipation 2015 Constitutional No recent illness 2015 Constitutional No anorexia 12/03/2015 Constitutional No night sweats 2015 Constitutional No chills 12/03/2015 Constitutional No diaphoresis 12/03/2015 Constitutional No fatigue 12/03/2015 Constitutional No fever 12/03/2015 Constitutional No insomnia 12/03/2015 Constitutional No malaise 12/03/2015 Constitutional No weight loss 12/03/2015 Constitutional No weight gain 12/03/2015 Constitutional No obesity 12/03/2015 Respiratory cough 12/03/2015 Respiratory No cigarette smoking 2015 Respiratory No chest tightness 2015 Respiratory No chest congestion 2015 Respiratory dyspnea on exertion 2015 Respiratory No dyspnea 12/03/2015 Cardiovascular No chest pain/pressure Ears/Nose/Throat/Neck nasal discharge Ears/Nose/Throat/Neck nasal allergies Ears/Nose/Throat/Neck No headache 2015 Ears/Nose/Throat/Neck No otitis media Ears/Nose/Throat/Neck No otalgia 2015 Gastrointestinal No constipation 2015 Gastrointestinal No diarrhea 12/03/2015 Genitourinary/Nephrology No dysuria 12/03 Musculoskeletal No myalgias 12/03/2015 Musculoskeletal joint complaint 2015 Musculoskeletal No muscle weakness 2015 Musculoskeletal No bone pain 12/03/2015 Musculoskeletal arthralgia(s) 12/03/2015 Dermatologic No rash 12/03/2015 Dermatologic No sores 12/03/2015 Psychiatric depression 12/03/2015 Psychiatric No anxiety 12/03/2015 Eyes vision change 12/03/2015 Eyes No eyelid erythema 12/03/2015 Eyes No eyelid edema 12/03/2015 Eyes No eye discharge 12/03/2015 Eyes No eye pain 12/03/2015 Eyes eye foreign body 12/03/2015 Ears/Nose/Throat/Neck epistaxis 2015 Constitutional No recent illness 2014 Constitutional No night sweats 2014 Constitutional No chills 10/01/2015 Constitutional No diaphoresis 10/01/2015 Constitutional No fatigue 10/01/2015 Constitutional No fever 10/01/2015 Constitutional No insomnia 10/01/2015 Constitutional No malaise 10/01/2015 Eyes No eye pain 10/01/2015 Eyes No eye tearing 10/01/2015 Ears/Nose/Throat/Neck No dental pain Ears/Nose/Throat/Neck No dizziness 2014 Ears/Nose/Throat/Neck No dysphagia 2014 Ears/Nose/Throat/Neck No headache 2014 Ears/Nose/Throat/Neck No hearing loss Ears/Nose/Throat/Neck No nasal allergies 10/01/2015 Ears/Nose/Throat/Neck No nasal discharge 10/01/2015 Ears/Nose/Throat/Neck No sore throat Ears/Nose/Throat/Neck No postnasal drip 10/01/2015 Ears/Nose/Throat/Neck No sinus congestion 10/01/2015 Cardiovascular hypertension 10/01/2015 Respiratory No asthma 10/01/2015 Respiratory No pleuritic pain 10/01/2015 Respiratory No productive sputum 2014 Respiratory No chest tightness 2014 Respiratory No dyspnea 10/01/2015 Respiratory No pedal edema 10/01/2015 Respiratory No snoring 10/01/2015 Respiratory No wheezing 10/01/2015 Gastrointestinal No hemorrhoids 2014 Gastrointestinal No abdominal pain 2014 Gastrointestinal No constipation 2014 Gastrointestinal No diarrhea 10/01/2015 Gastrointestinal No gastroesophageal reflux 10/01/2015 Gastrointestinal No melena 10/01/2015 Gastrointestinal No nausea 10/01/2015 Gastrointestinal No vomiting 10/01/2015 Genitourinary/Nephrology No dysuria 10/01 Genitourinary/Nephrology No nocturia Genitourinary/Nephrology urinary urgency 10/01/2015 Genitourinary/Nephrology urinary frequency 10/01/2015 Genitourinary/Nephrology No urinary incontinence 10/01/2015 Musculoskeletal No stiffness 10/01/2015 Musculoskeletal No swelling 10/01/2015 Musculoskeletal joint complaint 2014 Musculoskeletal No muscle weakness 2014 Musculoskeletal No myalgias 10/01/2015 Dermatologic No rash 10/01/2015 Dermatologic No sores 10/01/2015 Neurologic No alteration of consciousness 10/01/2015 Neurologic No dizziness 10/01/2015 Neurologic No headache 10/01/2015 Neurologic No neck pain 10/01/2015 Neurologic No syncope 10/01/2015 Psychiatric No anxiety 10/01/2015 Respiratory cough 10/01/2015 Psychiatric depression 10/01/2015 Constitutional No recent illness 2014 Constitutional No night sweats 2014 Constitutional No chills 07/23/2015 Constitutional No diaphoresis 07/23/2015 Constitutional No fatigue 07/23/2015 Constitutional No fever 07/23/2015 Constitutional No insomnia 07/23/2015 Constitutional No malaise 07/23/2015 Eyes No eye pain 07/23/2015 Eyes No eye tearing 07/23/2015 Ears/Nose/Throat/Neck No dental pain 05/2015 Ears/Nose/Throat/Neck No dizziness 2014 Ears/Nose/Throat/Neck No dysphagia 2014 Ears/Nose/Throat/Neck No headache 2014 Ears/Nose/Throat/Neck No hearing loss 05/2015 Ears/Nose/Throat/Neck No nasal allergies 07/23/2015 Ears/Nose/Throat/Neck No nasal discharge 07/23/2015 Ears/Nose/Throat/Neck No sore throat 05/2015 Ears/Nose/Throat/Neck No postnasal drip 07/23/2015 Ears/Nose/Throat/Neck No sinus congestion 07/23/2015 Cardiovascular hypertension 07/23/2015 Respiratory No asthma 07/23/2015 Respiratory No pleuritic pain 07/23/2015 Respiratory No productive sputum 2014 Respiratory No chest tightness 2014 Respiratory No cigarette smoking 2014 Respiratory cough 07/23/2015 Respiratory No dyspnea 07/23/2015 Respiratory No pedal edema 07/23/2015 Respiratory No snoring 07/23/2015 Respiratory No wheezing 07/23/2015 Gastrointestinal No hemorrhoids 2014 Gastrointestinal No abdominal pain 2014 Gastrointestinal No constipation 2014 Gastrointestinal No diarrhea 07/23/2015 Gastrointestinal No gastroesophageal reflux 07/23/2015 Gastrointestinal No melena 07/23/2015 Gastrointestinal No nausea 07/23/2015 Gastrointestinal No vomiting 07/23/2015 Genitourinary/Nephrology No dysuria 07/23 Genitourinary/Nephrology No nocturia 05/2015 Genitourinary/Nephrology urinary urgency 07/23/2015 Genitourinary/Nephrology urinary frequency 07/23/2015 Genitourinary/Nephrology No urinary incontinence 07/23/2015 Musculoskeletal No stiffness 07/23/2015 Musculoskeletal No swelling 07/23/2015 Musculoskeletal joint complaint 2014 Musculoskeletal No muscle weakness 2014 Musculoskeletal No myalgias 07/23/2015 Dermatologic No rash 07/23/2015 Dermatologic No sores 07/23/2015 Neurologic No alteration of consciousness 07/23/2015 Neurologic No dizziness 07/23/2015 Neurologic No headache 07/23/2015 Neurologic No neck pain 07/23/2015 Neurologic No syncope 07/23/2015 Psychiatric No anxiety 07/23/2015 Constitutional No recent illness 2014 Constitutional No night sweats 2014 Constitutional No chills 06/04/2015 Constitutional No diaphoresis 06/04/2015 Constitutional fatigue 06/04/2015 Constitutional No insomnia 06/04/2015 Constitutional No malaise 06/04/2015 Eyes No eye pain 06/04/2015 Eyes No eye tearing 06/04/2015 Ears/Nose/Throat/Neck No dental pain Ears/Nose/Throat/Neck No dizziness 2014 Ears/Nose/Throat/Neck No dysphagia 2014 Ears/Nose/Throat/Neck No headache 2014 Ears/Nose/Throat/Neck No hearing loss Ears/Nose/Throat/Neck No nasal allergies 06/04/2015 Ears/Nose/Throat/Neck No nasal discharge 06/04/2015 Ears/Nose/Throat/Neck No sore throat Ears/Nose/Throat/Neck No postnasal drip 06/04/2015 Ears/Nose/Throat/Neck No sinus congestion 06/04/2015 Cardiovascular hypertension 06/04/2015 Respiratory No asthma 06/04/2015 Respiratory No pleuritic pain 06/04/2015 Respiratory No productive sputum 2014 Respiratory No chest tightness 2014 Respiratory No cigarette smoking 2014 Respiratory cough 06/04/2015 Respiratory No dyspnea 06/04/2015 Respiratory No pedal edema 06/04/2015 Respiratory No snoring 06/04/2015 Respiratory No wheezing 06/04/2015 Gastrointestinal No hemorrhoids 2014 Gastrointestinal No abdominal pain 2014 Gastrointestinal No constipation 2014 Gastrointestinal No diarrhea 06/04/2015 Gastrointestinal No gastroesophageal reflux 06/04/2015 Gastrointestinal No melena 06/04/2015 Gastrointestinal No nausea 06/04/2015 Gastrointestinal No vomiting 06/04/2015 Genitourinary/Nephrology No dysuria 06/04 Genitourinary/Nephrology No nocturia Genitourinary/Nephrology urinary urgency 06/04/2015 Genitourinary/Nephrology urinary frequency 06/04/2015 Genitourinary/Nephrology No urinary incontinence 06/04/2015 Musculoskeletal stiffness 06/04/2015 Musculoskeletal No swelling 06/04/2015 Musculoskeletal joint complaint 2014 Musculoskeletal No muscle weakness 2014 Musculoskeletal No myalgias 06/04/2015 Dermatologic No rash 06/04/2015 Dermatologic sores 06/04/2015 Neurologic No alteration of consciousness 06/04/2015 Neurologic No dizziness 06/04/2015 Neurologic No headache 06/04/2015 Neurologic No neck pain 06/04/2015 Neurologic No syncope 06/04/2015 Psychiatric No anxiety 06/04/2015 Musculoskeletal back pain 06/04/2015 Musculoskeletal shoulder pain 06/04/2015 Constitutional No recent illness 2014 Constitutional No night sweats 2014 Constitutional No chills 01/12/2015 Constitutional No diaphoresis 01/12/2015 Constitutional No fatigue 01/12/2015 Constitutional No fever 01/12/2015 Constitutional No insomnia 01/12/2015 Constitutional No malaise 01/12/2015 Eyes No eye pain 01/12/2015 Eyes No eye tearing 01/12/2015 Ears/Nose/Throat/Neck No dental pain Ears/Nose/Throat/Neck No dizziness 2014 Ears/Nose/Throat/Neck No dysphagia 2014 Ears/Nose/Throat/Neck No headache 2014 Ears/Nose/Throat/Neck No hearing loss Ears/Nose/Throat/Neck No nasal allergies 01/12/2015 Ears/Nose/Throat/Neck No nasal discharge 01/12/2015 Ears/Nose/Throat/Neck No postnasal drip 01/12/2015 Ears/Nose/Throat/Neck No sinus congestion 01/12/2015 Ears/Nose/Throat/Neck No sore throat Cardiovascular hypertension 01/12/2015 Respiratory No asthma 01/12/2015 Respiratory No pleuritic pain 01/12/2015 Respiratory No productive sputum 2014 Respiratory No chest tightness 2014 Respiratory No cigarette smoking 2014 Respiratory cough 01/12/2015 Respiratory No dyspnea 01/12/2015 Respiratory No pedal edema 01/12/2015 Respiratory No snoring 01/12/2015 Respiratory No wheezing 01/12/2015 Gastrointestinal No hemorrhoids 2014 Gastrointestinal No abdominal pain 2014 Gastrointestinal No constipation 2014 Gastrointestinal No diarrhea 01/12/2015 Gastrointestinal No gastroesophageal reflux 01/12/2015 Gastrointestinal No melena 01/12/2015 Gastrointestinal No nausea 01/12/2015 Gastrointestinal No vomiting 01/12/2015 Genitourinary/Nephrology No dysuria 01/12 Genitourinary/Nephrology No nocturia Genitourinary/Nephrology urinary urgency 01/12/2015 Genitourinary/Nephrology urinary frequency 01/12/2015 Genitourinary/Nephrology No urinary incontinence 01/12/2015 Musculoskeletal stiffness 01/12/2015 Musculoskeletal No swelling 01/12/2015 Musculoskeletal joint complaint 2014 Musculoskeletal No muscle weakness 2014 Musculoskeletal No myalgias 01/12/2015 Dermatologic No rash 01/12/2015 Dermatologic sores 01/12/2015 Neurologic No alteration of consciousness 01/12/2015 Neurologic No dizziness 01/12/2015 Neurologic No headache 01/12/2015 Neurologic No neck pain 01/12/2015 Neurologic No syncope 01/12/2015 Psychiatric No anxiety 01/12/2015 Constitutional No recent illness 2014 Constitutional No night sweats 2014 Constitutional No chills 01/02/2015 Constitutional No diaphoresis 01/02/2015 Constitutional No fatigue 01/02/2015 Constitutional No fever 01/02/2015 Constitutional No insomnia 01/02/2015 Constitutional No malaise 01/02/2015 Eyes No eye pain 01/02/2015 Eyes No eye tearing 01/02/2015 Ears/Nose/Throat/Neck No dental pain Ears/Nose/Throat/Neck No dizziness 2014 Ears/Nose/Throat/Neck No dysphagia 2014 Ears/Nose/Throat/Neck No headache 2014 Ears/Nose/Throat/Neck No hearing loss Ears/Nose/Throat/Neck No nasal allergies 01/02/2015 Ears/Nose/Throat/Neck No nasal discharge 01/02/2015 Ears/Nose/Throat/Neck No sore throat Ears/Nose/Throat/Neck No postnasal drip 01/02/2015 Ears/Nose/Throat/Neck No sinus congestion 01/02/2015 Cardiovascular hypertension 01/02/2015 Respiratory No asthma 01/02/2015 Respiratory No pleuritic pain 01/02/2015 Respiratory No productive sputum 2014 Respiratory No chest tightness 2014 Respiratory No cigarette smoking 2014 Respiratory cough 01/02/2015 Respiratory No dyspnea 01/02/2015 Respiratory No pedal edema 01/02/2015 Respiratory No snoring 01/02/2015 Respiratory No wheezing 01/02/2015 Gastrointestinal No hemorrhoids 2014 Gastrointestinal No abdominal pain 2014 Gastrointestinal No constipation 2014 Gastrointestinal No diarrhea 01/02/2015 Gastrointestinal No gastroesophageal reflux 01/02/2015 Gastrointestinal No melena 01/02/2015 Gastrointestinal No nausea 01/02/2015 Gastrointestinal No vomiting 01/02/2015 Genitourinary/Nephrology No dysuria 01/02 Genitourinary/Nephrology No nocturia Genitourinary/Nephrology urinary urgency 01/02/2015 Genitourinary/Nephrology urinary frequency 01/02/2015 Genitourinary/Nephrology No urinary incontinence 01/02/2015 Musculoskeletal stiffness 01/02/2015 Musculoskeletal No swelling 01/02/2015 Musculoskeletal joint complaint 2014 Musculoskeletal No muscle weakness 2014 Musculoskeletal No myalgias 01/02/2015 Dermatologic No rash 01/02/2015 Dermatologic sores 01/02/2015 Neurologic No alteration of consciousness 01/02/2015 Neurologic No dizziness 01/02/2015 Neurologic No headache 01/02/2015 Neurologic No neck pain 01/02/2015 Neurologic No syncope 01/02/2015 Psychiatric No anxiety 01/02/2015 Constitutional No recent illness 2014 Constitutional No night sweats 2014 Constitutional No chills 12/30/2014 Constitutional No diaphoresis 12/30/2014 Constitutional No fatigue 12/30/2014 Constitutional No fever 12/30/2014 Constitutional No insomnia 12/30/2014 Constitutional No malaise 12/30/2014 Eyes No eye pain 12/30/2014 Eyes No eye tearing 12/30/2014 Ears/Nose/Throat/Neck No dental pain Ears/Nose/Throat/Neck No dizziness 2014 Ears/Nose/Throat/Neck No dysphagia 2014 Ears/Nose/Throat/Neck No headache 2014 Ears/Nose/Throat/Neck No hearing loss Ears/Nose/Throat/Neck No nasal allergies 12/30/2014 Ears/Nose/Throat/Neck No nasal discharge 12/30/2014 Ears/Nose/Throat/Neck No sore throat Ears/Nose/Throat/Neck No postnasal drip 12/30/2014 Ears/Nose/Throat/Neck No sinus congestion 12/30/2014 Cardiovascular hypertension 12/30/2014 Respiratory No asthma 12/30/2014 Respiratory No pleuritic pain 12/30/2014 Respiratory No productive sputum 2014 Respiratory No chest tightness 2014 Respiratory No cigarette smoking 2014 Respiratory cough 12/30/2014 Respiratory No dyspnea 12/30/2014 Respiratory No pedal edema 12/30/2014 Respiratory No snoring 12/30/2014 Respiratory No wheezing 12/30/2014 Gastrointestinal No hemorrhoids 2014 Gastrointestinal No abdominal pain 2014 Gastrointestinal No constipation 2014 Gastrointestinal No diarrhea 12/30/2014 Gastrointestinal No gastroesophageal reflux 12/30/2014 Gastrointestinal No melena 12/30/2014 Gastrointestinal No nausea 12/30/2014 Gastrointestinal No vomiting 12/30/2014 Genitourinary/Nephrology No dysuria 12/30 Genitourinary/Nephrology No nocturia Genitourinary/Nephrology urinary urgency 12/30/2014 Genitourinary/Nephrology urinary frequency 12/30/2014 Genitourinary/Nephrology No urinary incontinence 12/30/2014 Musculoskeletal stiffness 12/30/2014 Musculoskeletal No swelling 12/30/2014 Musculoskeletal joint complaint 2014 Musculoskeletal No muscle weakness 2014 Musculoskeletal No myalgias 12/30/2014 Dermatologic No rash 12/30/2014 Dermatologic sores 12/30/2014 Neurologic No alteration of consciousness 12/30/2014 Neurologic No dizziness 12/30/2014 Neurologic No headache 12/30/2014 Neurologic No neck pain 12/30/2014 Neurologic No syncope 12/30/2014 Psychiatric No anxiety 12/30/2014 Constitutional No recent illness 2014 Constitutional No night sweats 2014 Constitutional No chills 12/08/2014 Constitutional No diaphoresis 12/08/2014 Constitutional No fatigue 12/08/2014 Constitutional No fever 12/08/2014 Constitutional No insomnia 12/08/2014 Constitutional No malaise 12/08/2014 Eyes No eye pain 12/08/2014 Eyes No eye tearing 12/08/2014 Ears/Nose/Throat/Neck No dental pain Ears/Nose/Throat/Neck No dizziness 2014 Ears/Nose/Throat/Neck No dysphagia 2014 Ears/Nose/Throat/Neck No headache 2014 Ears/Nose/Throat/Neck No hearing loss Ears/Nose/Throat/Neck No nasal allergies 12/08/2014 Ears/Nose/Throat/Neck No nasal discharge 12/08/2014 Ears/Nose/Throat/Neck No sore throat Ears/Nose/Throat/Neck No postnasal drip 12/08/2014 Ears/Nose/Throat/Neck No sinus congestion 12/08/2014 Respiratory No asthma 12/08/2014 Respiratory No pleuritic pain 12/08/2014 Respiratory No productive sputum 2014 Respiratory No chest tightness 2014 Respiratory No cigarette smoking 2014 Respiratory cough 12/08/2014 Respiratory No dyspnea 12/08/2014 Respiratory No pedal edema 12/08/2014 Respiratory No snoring 12/08/2014 Respiratory No wheezing 12/08/2014 Gastrointestinal No hemorrhoids 2014 Gastrointestinal No abdominal pain 2014 Gastrointestinal No constipation 2014 Gastrointestinal No diarrhea 12/08/2014 Gastrointestinal No gastroesophageal reflux 12/08/2014 Gastrointestinal No melena 12/08/2014 Gastrointestinal No nausea 12/08/2014 Gastrointestinal No vomiting 12/08/2014 Genitourinary/Nephrology No urinary incontinence 12/08/2014 Musculoskeletal No stiffness 12/08/2014 Musculoskeletal No swelling 12/08/2014 Musculoskeletal joint complaint 2014 Musculoskeletal No muscle weakness 2014 Musculoskeletal No myalgias 12/08/2014 Neurologic No alteration of consciousness 12/08/2014 Neurologic No dizziness 12/08/2014 Neurologic No headache 12/08/2014 Neurologic No neck pain 12/08/2014 Neurologic No syncope 12/08/2014 Psychiatric No anxiety 12/08/2014 Dermatologic No rash 12/08/2014 Dermatologic No sores 12/08/2014 Cardiovascular hypertension 12/08/2014 Genitourinary/Nephrology No nocturia Genitourinary/Nephrology No dysuria 12/08 Genitourinary/Nephrology urinary frequency 12/08/2014 Genitourinary/Nephrology urinary urgency 12/08/2014 Constitutional No recent illness 2013 Constitutional No insomnia 09/08/2014 Constitutional No fatigue 09/08/2014 Cardiovascular No dyspnea 09/08/2014 Cardiovascular No chest pain/pressure Ears/Nose/Throat/Neck hoarseness 2013 Respiratory No cough 09/08/2014 Respiratory No dyspnea 09/08/2014 Gastrointestinal No constipation 2013 Gastrointestinal diarrhea 09/08/2014 Gastrointestinal No dyspepsia 09/08/2014 Gastrointestinal No abdominal pain 2013 Genitourinary/Nephrology No dysuria 09/08 Musculoskeletal stiffness 09/08/2014 Psychiatric No anxiety 09/08/2014 Psychiatric No depression 09/08/2014 Neurologic No dizziness 09/08/2014 Constitutional No recent illness 2013 Constitutional No night sweats 2013 Constitutional No chills 06/09/2014 Constitutional No diaphoresis 06/09/2014 Constitutional No fatigue 06/09/2014 Constitutional No fever 06/09/2014 Constitutional No insomnia 06/09/2014 Constitutional No malaise 06/09/2014 Constitutional No weight loss 06/09/2014 Constitutional No weight gain 06/09/2014 Constitutional No obesity 06/09/2014 Eyes No eye pain 06/09/2014 Eyes No eye tearing 06/09/2014 Ears/Nose/Throat/Neck No dental pain Ears/Nose/Throat/Neck No dizziness 2013 Ears/Nose/Throat/Neck No dysphagia 2013 Ears/Nose/Throat/Neck No headache 2013 Ears/Nose/Throat/Neck No hearing loss Ears/Nose/Throat/Neck No nasal allergies 06/09/2014 Ears/Nose/Throat/Neck No nasal discharge 06/09/2014 Ears/Nose/Throat/Neck No sore throat Ears/Nose/Throat/Neck No postnasal drip 06/09/2014 Ears/Nose/Throat/Neck No sinus congestion 06/09/2014 Respiratory No asthma 06/09/2014 Respiratory No pleuritic pain 06/09/2014 Respiratory No productive sputum 2013 Respiratory No chest tightness 2013 Respiratory No cigarette smoking 2013 Respiratory cough 06/09/2014 Respiratory No dyspnea 06/09/2014 Respiratory No pedal edema 06/09/2014 Respiratory No snoring 06/09/2014 Respiratory No wheezing 06/09/2014 Gastrointestinal No hemorrhoids 2013 Gastrointestinal No abdominal pain 2013 Gastrointestinal No constipation 2013 Gastrointestinal No diarrhea 06/09/2014 Gastrointestinal No gastroesophageal reflux 06/09/2014 Gastrointestinal No melena 06/09/2014 Gastrointestinal No nausea 06/09/2014 Gastrointestinal No vomiting 06/09/2014 Genitourinary/Nephrology No dysuria 06/09 Genitourinary/Nephrology nocturia 2013 Genitourinary/Nephrology No urinary incontinence 06/09/2014 Musculoskeletal No stiffness 06/09/2014 Musculoskeletal No swelling 06/09/2014 Musculoskeletal No muscle weakness 2013 Musculoskeletal No myalgias 06/09/2014 Neurologic No alteration of consciousness 06/09/2014 Psychiatric No anxiety 06/09/2014 Musculoskeletal joint complaint 2013 Neurologic No dizziness 06/09/2014 Neurologic No headache 06/09/2014 Neurologic No neck pain 06/09/2014 Neurologic No syncope 06/09/2014 Genitourinary/Nephrology urinary frequency 06/09/2014 Constitutional No recent illness 2013 Constitutional No night sweats 2013 Constitutional No chills 04/28/2014 Constitutional No diaphoresis 04/28/2014 Constitutional No fatigue 04/28/2014 Constitutional No fever 04/28/2014 Constitutional No insomnia 04/28/2014 Constitutional No malaise 04/28/2014 Constitutional No weight loss 04/28/2014 Constitutional No weight gain 04/28/2014 Constitutional No obesity 04/28/2014 Eyes No eye pain 04/28/2014 Eyes No eye tearing 04/28/2014 Ears/Nose/Throat/Neck No dental pain Ears/Nose/Throat/Neck No dizziness 2013 Ears/Nose/Throat/Neck No dysphagia 2013 Ears/Nose/Throat/Neck No headache 2013 Ears/Nose/Throat/Neck No hearing loss Ears/Nose/Throat/Neck No nasal allergies 04/28/2014 Ears/Nose/Throat/Neck No nasal discharge 04/28/2014 Ears/Nose/Throat/Neck No sore throat Ears/Nose/Throat/Neck No postnasal drip 04/28/2014 Ears/Nose/Throat/Neck No sinus congestion 04/28/2014 Respiratory No asthma 04/28/2014 Respiratory No pleuritic pain 04/28/2014 Respiratory No productive sputum 2013 Respiratory chest tightness 04/28/2014 Respiratory No cigarette smoking 2013 Respiratory cough 04/28/2014 Respiratory No dyspnea 04/28/2014 Respiratory No pedal edema 04/28/2014 Respiratory No snoring 04/28/2014 Respiratory No wheezing 04/28/2014 Gastrointestinal No hemorrhoids 2013 Gastrointestinal No abdominal pain 2013 Gastrointestinal No constipation 2013 Gastrointestinal No diarrhea 04/28/2014 Gastrointestinal No gastroesophageal reflux 04/28/2014 Gastrointestinal No melena 04/28/2014 Gastrointestinal No nausea 04/28/2014 Gastrointestinal No vomiting 04/28/2014 Genitourinary/Nephrology No dysuria 04/28 Genitourinary/Nephrology No nocturia Genitourinary/Nephrology No urinary incontinence 04/28/2014 Musculoskeletal No stiffness 04/28/2014 Musculoskeletal No swelling 04/28/2014 Musculoskeletal joint complaint 2013 Musculoskeletal No muscle weakness 2013 Musculoskeletal No myalgias 04/28/2014 Neurologic No alteration of consciousness 04/28/2014 Psychiatric No anxiety 04/28/2014 Constitutional No recent illness 2013 Constitutional No night sweats 2013 Constitutional No chills 03/26/2014 Constitutional No diaphoresis 03/26/2014 Constitutional No fatigue 03/26/2014 Constitutional No fever 03/26/2014 Constitutional No insomnia 03/26/2014 Constitutional No malaise 03/26/2014 Constitutional No weight loss 03/26/2014 Constitutional No weight gain 03/26/2014 Constitutional No obesity 03/26/2014 Eyes No eye pain 03/26/2014 Eyes No eye tearing 03/26/2014 Ears/Nose/Throat/Neck No dental pain 08/2014 Ears/Nose/Throat/Neck No dizziness 2013 Ears/Nose/Throat/Neck No dysphagia 2013 Ears/Nose/Throat/Neck No headache 2013 Ears/Nose/Throat/Neck No hearing loss 08/2014 Ears/Nose/Throat/Neck No nasal allergies 03/26/2014 Ears/Nose/Throat/Neck No nasal discharge 03/26/2014 Ears/Nose/Throat/Neck No sore throat 08/2014 Ears/Nose/Throat/Neck No postnasal drip 03/26/2014 Ears/Nose/Throat/Neck No sinus congestion 03/26/2014 Respiratory No asthma 03/26/2014 Respiratory No pleuritic pain 03/26/2014 Respiratory No productive sputum 2013 Respiratory chest tightness 03/26/2014 Respiratory No cigarette smoking 2013 Respiratory cough 03/26/2014 Respiratory No dyspnea 03/26/2014 Respiratory No pedal edema 03/26/2014 Respiratory No snoring 03/26/2014 Respiratory No wheezing 03/26/2014 Gastrointestinal No hemorrhoids 2013 Gastrointestinal No abdominal pain 2013 Gastrointestinal No constipation 2013 Gastrointestinal No diarrhea 03/26/2014 Gastrointestinal No gastroesophageal reflux 03/26/2014 Gastrointestinal No melena 03/26/2014 Gastrointestinal No nausea 03/26/2014 Gastrointestinal No vomiting 03/26/2014 Genitourinary/Nephrology No dysuria 03/26 Genitourinary/Nephrology No nocturia 08/2014 Genitourinary/Nephrology No urinary incontinence 03/26/2014 Musculoskeletal stiffness 03/26/2014 Musculoskeletal No swelling 03/26/2014 Musculoskeletal joint complaint 2013 Musculoskeletal No muscle weakness 2013 Musculoskeletal No myalgias 03/26/2014 Neurologic No alteration of consciousness 03/26/2014 Psychiatric No anxiety 03/26/2014 Constitutional No recent illness 2013 Constitutional No night sweats 2013 Constitutional No chills 02/05/2014 Constitutional No diaphoresis 02/05/2014 Constitutional fatigue 02/05/2014 Constitutional No insomnia 02/05/2014 Eyes No eye pain 02/05/2014 Eyes No eye tearing 02/05/2014 Ears/Nose/Throat/Neck No dental pain Ears/Nose/Throat/Neck No dizziness 2013 Ears/Nose/Throat/Neck No dysphagia 2013 Ears/Nose/Throat/Neck No headache 2013 Ears/Nose/Throat/Neck No hearing loss Ears/Nose/Throat/Neck No nasal allergies 02/05/2014 Ears/Nose/Throat/Neck No nasal discharge 02/05/2014 Ears/Nose/Throat/Neck No sore throat Ears/Nose/Throat/Neck No postnasal drip 02/05/2014 Ears/Nose/Throat/Neck No sinus congestion 02/05/2014 Respiratory No asthma 02/05/2014 Respiratory No pleuritic pain 02/05/2014 Respiratory No productive sputum 2013 Respiratory No cigarette smoking 2013 Respiratory No dyspnea 02/05/2014 Respiratory No pedal edema 02/05/2014 Respiratory No snoring 02/05/2014 Respiratory No wheezing 02/05/2014 Gastrointestinal No hemorrhoids 2013 Gastrointestinal No abdominal pain 2013 Gastrointestinal No constipation 2013 Gastrointestinal No diarrhea 02/05/2014 Gastrointestinal No gastroesophageal reflux 02/05/2014 Gastrointestinal No melena 02/05/2014 Gastrointestinal No nausea 02/05/2014 Gastrointestinal No vomiting 02/05/2014 Genitourinary/Nephrology No dysuria 02/05 Genitourinary/Nephrology No nocturia Genitourinary/Nephrology No urinary incontinence 02/05/2014 Musculoskeletal No stiffness 02/05/2014 Musculoskeletal No swelling 02/05/2014 Musculoskeletal joint complaint 2013 Musculoskeletal No muscle weakness 2013 Musculoskeletal No myalgias 02/05/2014 Neurologic No alteration of consciousness 02/05/2014 Psychiatric No anxiety 02/05/2014 Constitutional No recent illness 2013 Constitutional No night sweats 2013 Constitutional No chills 12/11/2013 Constitutional No diaphoresis 12/11/2013 Constitutional No fatigue 12/11/2013 Constitutional No fever 12/11/2013 Constitutional No insomnia 12/11/2013 Constitutional No malaise 12/11/2013 Constitutional No weight loss 12/11/2013 Constitutional No weight gain 12/11/2013 Constitutional No obesity 12/11/2013 Eyes No eye pain 12/11/2013 Eyes No eye tearing 12/11/2013 Ears/Nose/Throat/Neck No dental pain Ears/Nose/Throat/Neck No dizziness 2013 Ears/Nose/Throat/Neck No dysphagia 2013 Ears/Nose/Throat/Neck No headache 2013 Ears/Nose/Throat/Neck No hearing loss Ears/Nose/Throat/Neck No nasal allergies 12/11/2013 Ears/Nose/Throat/Neck No nasal discharge 12/11/2013 Ears/Nose/Throat/Neck No sore throat Ears/Nose/Throat/Neck No postnasal drip 12/11/2013 Ears/Nose/Throat/Neck No sinus congestion 12/11/2013 Respiratory No asthma 12/11/2013 Respiratory No pleuritic pain 12/11/2013 Respiratory No productive sputum 2013 Respiratory chest tightness 12/11/2013 Respiratory No cigarette smoking 2013 Respiratory cough 12/11/2013 Respiratory No dyspnea 12/11/2013 Respiratory No pedal edema 12/11/2013 Respiratory No snoring 12/11/2013 Respiratory No wheezing 12/11/2013 Gastrointestinal No hemorrhoids 2013 Gastrointestinal No abdominal pain 2013 Gastrointestinal No constipation 2013 Gastrointestinal No diarrhea 12/11/2013 Gastrointestinal No gastroesophageal reflux 12/11/2013 Gastrointestinal No melena 12/11/2013 Gastrointestinal No nausea 12/11/2013 Gastrointestinal No vomiting 12/11/2013 Genitourinary/Nephrology No dysuria 12/11 Genitourinary/Nephrology No nocturia Genitourinary/Nephrology No urinary incontinence 12/11/2013 Musculoskeletal No stiffness 12/11/2013 Musculoskeletal No swelling 12/11/2013 Musculoskeletal joint complaint 2013 Musculoskeletal No muscle weakness 2013 Musculoskeletal No myalgias 12/11/2013 Neurologic No alteration of consciousness 12/11/2013 Psychiatric No anxiety 12/11/2013 Constitutional No recent illness 2013 Constitutional No night sweats 2013 Constitutional No chills 11/27/2013 Constitutional No diaphoresis 11/27/2013 Constitutional No fatigue 11/27/2013 Constitutional No fever 11/27/2013 Constitutional No insomnia 11/27/2013 Constitutional No malaise 11/27/2013 Constitutional No weight loss 11/27/2013 Constitutional No weight gain 11/27/2013 Constitutional No obesity 11/27/2013 Eyes No eye pain 11/27/2013 Eyes No eye tearing 11/27/2013 Ears/Nose/Throat/Neck No dental pain 09/2014 Ears/Nose/Throat/Neck No dizziness 2013 Ears/Nose/Throat/Neck No dysphagia 2013 Ears/Nose/Throat/Neck No headache 2013 Ears/Nose/Throat/Neck No hearing loss 09/2014 Ears/Nose/Throat/Neck No nasal allergies 11/27/2013 Ears/Nose/Throat/Neck No nasal discharge 11/27/2013 Ears/Nose/Throat/Neck No sore throat 09/2014 Ears/Nose/Throat/Neck No postnasal drip 11/27/2013 Ears/Nose/Throat/Neck No sinus congestion 11/27/2013 Respiratory No asthma 11/27/2013 Respiratory No pleuritic pain 11/27/2013 Respiratory No productive sputum 2013 Respiratory chest tightness 11/27/2013 Respiratory No cigarette smoking 2013 Respiratory cough 11/27/2013 Respiratory No dyspnea 11/27/2013 Respiratory No pedal edema 11/27/2013 Respiratory No snoring 11/27/2013 Respiratory No wheezing 11/27/2013 Gastrointestinal No hemorrhoids 2013 Gastrointestinal No abdominal pain 2013 Gastrointestinal No constipation 2013 Gastrointestinal No diarrhea 11/27/2013 Gastrointestinal No gastroesophageal reflux 11/27/2013 Gastrointestinal No melena 11/27/2013 Gastrointestinal No nausea 11/27/2013 Gastrointestinal No vomiting 11/27/2013 Genitourinary/Nephrology No dysuria 11/27 Genitourinary/Nephrology No nocturia 09/2014 Genitourinary/Nephrology No urinary incontinence 11/27/2013 Musculoskeletal No stiffness 11/27/2013 Musculoskeletal No swelling 11/27/2013 Musculoskeletal joint complaint 2013 Musculoskeletal No muscle weakness 2013 Musculoskeletal No myalgias 11/27/2013 Neurologic No alteration of consciousness 11/27/2013 Psychiatric No anxiety 11/27/2013 Constitutional recent illness 10/31/2013 Constitutional No anorexia 10/31/2013 Constitutional No chills 10/31/2013 Constitutional No diaphoresis 10/31/2013 Constitutional fatigue 10/31/2013 Constitutional No fever 10/31/2013 Constitutional No insomnia 10/31/2013 Eyes No eye discharge 10/31/2013 Eyes No eye erythema 10/31/2013 Ears/Nose/Throat/Neck nasal allergies Ears/Nose/Throat/Neck nasal discharge Ears/Nose/Throat/Neck No otalgia 2013 Ears/Nose/Throat/Neck No sinus congestion 10/31/2013 Ears/Nose/Throat/Neck No sore throat Cardiovascular No chest pain/pressure Gastrointestinal No constipation 2013 Gastrointestinal No diarrhea 10/31/2013 Gastrointestinal No nausea 10/31/2013 Gastrointestinal No vomiting 10/31/2013 Genitourinary/Nephrology No dysuria 10/31 Musculoskeletal No joint complaint 2013 Dermatologic No rash 10/31/2013 Dermatologic No sores 10/31/2013 Neurologic No alteration of consciousness 10/31/2013 Constitutional No recent illness 2012 Constitutional No night sweats 2012 Constitutional No chills 09/30/2013 Constitutional No diaphoresis 09/30/2013 Constitutional No fatigue 09/30/2013 Constitutional No fever 09/30/2013 Constitutional No insomnia 09/30/2013 Constitutional No malaise 09/30/2013 Constitutional No weight loss 09/30/2013 Constitutional No weight gain 09/30/2013 Gastrointestinal No constipation 2012 Gastrointestinal No diarrhea 09/30/2013 Gastrointestinal No gastroesophageal reflux 09/30/2013 Gastrointestinal No melena 09/30/2013 Gastrointestinal No nausea 09/30/2013 Gastrointestinal No vomiting 09/30/2013 Genitourinary/Nephrology No dysuria 09/30 Genitourinary/Nephrology No nocturia Genitourinary/Nephrology No urinary incontinence 09/30/2013 Musculoskeletal No stiffness 09/30/2013 Musculoskeletal No swelling 09/30/2013 Musculoskeletal joint complaint 2012 Musculoskeletal No muscle weakness 2012 Musculoskeletal No myalgias 09/30/2013 Neurologic No alteration of consciousness 09/30/2013 Respiratory No cigarette smoking 2012 Psychiatric No anxiety 09/30/2013 Psychiatric depression 09/30/2013 Constitutional No obesity 09/30/2013 Eyes No eye pain 09/30/2013 Eyes No eye tearing 09/30/2013 Ears/Nose/Throat/Neck No dental pain Ears/Nose/Throat/Neck No dizziness 2012 Ears/Nose/Throat/Neck No dysphagia 2012 Ears/Nose/Throat/Neck No headache 2012 Ears/Nose/Throat/Neck No hearing loss Ears/Nose/Throat/Neck No nasal allergies 09/30/2013 Ears/Nose/Throat/Neck No nasal discharge 09/30/2013 Ears/Nose/Throat/Neck No postnasal drip 09/30/2013 Ears/Nose/Throat/Neck No sinus congestion 09/30/2013 Ears/Nose/Throat/Neck No sore throat Respiratory No asthma 09/30/2013 Respiratory No pleuritic pain 09/30/2013 Respiratory No productive sputum 2012 Respiratory chest tightness 09/30/2013 Respiratory cough 09/30/2013 Respiratory No dyspnea 09/30/2013 Respiratory No pedal edema 09/30/2013 Respiratory No snoring 09/30/2013 Respiratory No wheezing 09/30/2013 Gastrointestinal No hemorrhoids 2012 Gastrointestinal No abdominal pain 2012 Constitutional No recent illness 2012 Constitutional No night sweats 2012 Constitutional No chills 08/20/2013 Constitutional No diaphoresis 08/20/2013 Constitutional No fatigue 08/20/2013 Constitutional No fever 08/20/2013 Constitutional No insomnia 08/20/2013 Constitutional No malaise 08/20/2013 Constitutional No weight loss 08/20/2013 Constitutional No weight gain 08/20/2013 Constitutional No obesity 08/20/2013 Ears/Nose/Throat/Neck No dental pain 02/2013 Ears/Nose/Throat/Neck No dizziness 2012 Ears/Nose/Throat/Neck No dysphagia 2012 Ears/Nose/Throat/Neck No headache 2012 Ears/Nose/Throat/Neck No hearing loss 02/2013 Ears/Nose/Throat/Neck No nasal allergies 08/20/2013 Ears/Nose/Throat/Neck No nasal discharge 08/20/2013 Ears/Nose/Throat/Neck No postnasal drip 08/20/2013 Ears/Nose/Throat/Neck No sinus congestion 08/20/2013 Ears/Nose/Throat/Neck No sore throat 02/2013 Eyes No eye pain 08/20/2013 Eyes No eye tearing 08/20/2013 Cardiovascular No arrhythmia 08/20/2013 Cardiovascular No chest pain/pressure 02/2013 Cardiovascular No dyspnea 08/20/2013 Cardiovascular No edema 08/20/2013 Cardiovascular No exercise intolerance Cardiovascular No fatigue 08/20/2013 Cardiovascular No near-syncope/dizziness 08/20/2013 Cardiovascular No orthopnea 08/20/2013 Cardiovascular No palpitations 2012 Respiratory No asthma 08/20/2013 Respiratory No pleuritic pain 08/20/2013 Respiratory No productive sputum 2012 Respiratory No chest tightness 2012 Respiratory No cigarette smoking 2012 Respiratory No cough 08/20/2013 Respiratory No dyspnea 08/20/2013 Respiratory No pedal edema 08/20/2013 Respiratory No snoring 08/20/2013 Respiratory No wheezing 08/20/2013 Gastrointestinal No hemorrhoids 2012 Gastrointestinal No abdominal pain 2012 Gastrointestinal No constipation 2012 Gastrointestinal No diarrhea 08/20/2013 Gastrointestinal No gastroesophageal reflux 08/20/2013 Gastrointestinal No melena 08/20/2013 Gastrointestinal No nausea 08/20/2013 Gastrointestinal No vomiting 08/20/2013 Genitourinary/Nephrology No dysuria 08/20 Genitourinary/Nephrology No nocturia 02/2013 Genitourinary/Nephrology No urinary incontinence 08/20/2013 Musculoskeletal No stiffness 08/20/2013 Musculoskeletal No swelling 08/20/2013 Musculoskeletal No muscle weakness 2012 Musculoskeletal No myalgias 08/20/2013 Musculoskeletal joint complaint 2012 Neurologic No alteration of consciousness 08/20/2013 Constitutional No recent illness 2012 Constitutional No anorexia 05/30/2013 Constitutional No night sweats 2012 Constitutional No chills 05/30/2013 Constitutional No diaphoresis 05/30/2013 Constitutional No fatigue 05/30/2013 Constitutional No fever 05/30/2013 Constitutional No insomnia 05/30/2013 Constitutional No malaise 05/30/2013 Eyes No eye discharge 05/30/2013 Eyes No eye erythema 05/30/2013 Ears/Nose/Throat/Neck No dizziness 2012 Ears/Nose/Throat/Neck No headache 2012 Respiratory No cough 05/30/2013 Gastrointestinal No abdominal pain 2012 Gastrointestinal No constipation 2012 Gastrointestinal No diarrhea 05/30/2013 Gastrointestinal gastroesophageal reflux 05/30/2013 Gastrointestinal No nausea 05/30/2013 Gastrointestinal No vomiting 05/30/2013 Musculoskeletal No joint complaint 2012 Dermatologic No rash 05/30/2013 Respiratory No dyspnea on exertion 2012 Respiratory No chest tightness 2012 Psychiatric No anxiety 05/30/2013 Psychiatric No depression 05/30/2013 Constitutional No anorexia 05/07/2013 Constitutional No night sweats 2012 Constitutional No chills 05/07/2013 Constitutional No diaphoresis 05/07/2013 Constitutional No fever 05/07/2013 Constitutional No insomnia 05/07/2013 Eyes No eye discharge 05/07/2013 Eyes No eye erythema 05/07/2013 Ears/Nose/Throat/Neck No dizziness 2012 Ears/Nose/Throat/Neck No headache 2012 Ears/Nose/Throat/Neck No nasal discharge 05/07/2013 Gastrointestinal No abdominal pain 2012 Gastrointestinal No constipation 2012 Gastrointestinal No diarrhea 05/07/2013 Gastrointestinal No nausea 05/07/2013 Gastrointestinal No vomiting 05/07/2013 Musculoskeletal No joint complaint 2012 Dermatologic No rash 05/07/2013 Dermatologic No sores 05/07/2013 Neurologic No alteration of consciousness 05/07/2013 Psychiatric anxiety 05/07/2013 Psychiatric depression 05/07/2013 Cardiovascular exercise intolerance 05/07 Cardiovascular fatigue 05/07/2013 Cardiovascular hypertension 05/07/2013 Constitutional No recent illness 2012 Constitutional No anorexia 04/11/2013 Constitutional No night sweats 2012 Constitutional No chills 04/11/2013 Constitutional No diaphoresis 04/11/2013 Constitutional No fatigue 04/11/2013 Constitutional No fever 04/11/2013 Constitutional No insomnia 04/11/2013 Constitutional No malaise 04/11/2013 Eyes No eye discharge 04/11/2013 Eyes No eye erythema 04/11/2013 Ears/Nose/Throat/Neck No dizziness 2012 Ears/Nose/Throat/Neck No headache 2012 Ears/Nose/Throat/Neck No nasal discharge 04/11/2013 Respiratory No productive sputum 2012 Respiratory No chest congestion 2012 Respiratory dyspnea on exertion 2012 Gastrointestinal No abdominal pain 2012 Gastrointestinal No constipation 2012 Gastrointestinal No diarrhea 04/11/2013 Gastrointestinal No nausea 04/11/2013 Gastrointestinal No vomiting 04/11/2013 Genitourinary/Nephrology No dysuria 04/11 Dermatologic No rash 04/11/2013 Dermatologic No sores 04/11/2013 Neurologic No alteration of consciousness 04/11/2013 Constitutional No recent illness 2012 Constitutional No anorexia 03/18/2013 Constitutional No night sweats 2012 Constitutional No chills 03/18/2013 Constitutional No diaphoresis 03/18/2013 Constitutional No fatigue 03/18/2013 Constitutional No fever 03/18/2013 Constitutional No insomnia 03/18/2013 Constitutional No malaise 03/18/2013 Eyes No eye discharge 03/18/2013 Eyes No eye erythema 03/18/2013 Ears/Nose/Throat/Neck No dizziness 2012 Ears/Nose/Throat/Neck No headache 2012 Respiratory No cough 03/18/2013 Gastrointestinal No abdominal pain 2012 Gastrointestinal No constipation 2012 Gastrointestinal No diarrhea 03/18/2013 Gastrointestinal gastroesophageal reflux 03/18/2013 Gastrointestinal No nausea 03/18/2013 Gastrointestinal No vomiting 03/18/2013 Musculoskeletal No joint complaint 2012 Dermatologic No rash 03/18/2013 Constitutional No recent illness 2012 Constitutional No anorexia 02/14/2013 Constitutional No night sweats 2012 Constitutional No chills 02/14/2013 Constitutional No diaphoresis 02/14/2013 Constitutional No fatigue 02/14/2013 Constitutional No fever 02/14/2013 Constitutional No insomnia 02/14/2013 Constitutional No malaise 02/14/2013 Eyes No eye discharge 02/14/2013 Eyes No eye erythema 02/14/2013 Ears/Nose/Throat/Neck No dizziness 2012 Ears/Nose/Throat/Neck No headache 2012 Ears/Nose/Throat/Neck No nasal discharge 02/14/2013 Respiratory No productive sputum 2012 Respiratory No chest congestion 2012 Respiratory cough 02/14/2013 Respiratory dyspnea on exertion 2012 Gastrointestinal No abdominal pain 2012 Gastrointestinal No constipation 2012 Gastrointestinal No diarrhea 02/14/2013 Gastrointestinal No nausea 02/14/2013 Gastrointestinal No vomiting 02/14/2013 Musculoskeletal No joint complaint 2012 Dermatologic No rash 02/14/2013 Dermatologic No sores 02/14/2013 Neurologic No alteration of consciousness 02/14/2013 Psychiatric anxiety 02/14/2013 Psychiatric depression 02/14/2013 Constitutional No recent illness 2012 Constitutional anorexia 01/17/2013 Constitutional fever 01/17/2013 Constitutional chills 01/17/2013 Constitutional diaphoresis 01/17/2013 Constitutional No fatigue 01/17/2013 Eyes No eye discharge 01/17/2013 Eyes No eye erythema 01/17/2013 Ears/Nose/Throat/Neck No headache 2012 Ears/Nose/Throat/Neck No nasal allergies 01/17/2013 Ears/Nose/Throat/Neck No nasal discharge 01/17/2013 Respiratory No productive sputum 2012 Respiratory No chest congestion 2012 Respiratory No cough 01/17/2013 Genitourinary/Nephrology No dysuria 01/17 Respiratory dyspnea on exertion 2012 Musculoskeletal No joint complaint 2012 Dermatologic No sores 01/17/2013 Dermatologic No rash 01/17/2013 Ears/Nose/Throat/Neck No dizziness 2012 Constitutional No night sweats 2012 Constitutional No insomnia 01/17/2013 Constitutional No malaise 01/17/2013 Gastrointestinal No abdominal pain 2012 Gastrointestinal No constipation 2012 Gastrointestinal No diarrhea 01/17/2013 Gastrointestinal gastroesophageal reflux 01/17/2013 Gastrointestinal No nausea 01/17/2013 Gastrointestinal No vomiting 01/17/2013 Genitourinary/Nephrology No dysuria 12/27 Musculoskeletal No joint complaint 2012 Dermatologic No rash 12/27/2012 Dermatologic No sores 12/27/2012 Neurologic No alteration of consciousness 12/27/2012 Constitutional No recent illness 2012 Constitutional No anorexia 12/27/2012 Constitutional No night sweats 2012 Constitutional No chills 12/27/2012 Constitutional No diaphoresis 12/27/2012 Constitutional No fatigue 12/27/2012 Constitutional No insomnia 12/27/2012 Constitutional No malaise 12/27/2012 Constitutional No fever 12/27/2012 Eyes No eye discharge 12/27/2012 Eyes No eye erythema 12/27/2012 Ears/Nose/Throat/Neck No dizziness 2012 Ears/Nose/Throat/Neck No headache 2012 Ears/Nose/Throat/Neck No nasal discharge 12/27/2012 Respiratory No productive sputum 2012 Respiratory No chest congestion 2012 Respiratory cough 12/27/2012 Respiratory dyspnea on exertion 2012 Gastrointestinal No abdominal pain 2012 Gastrointestinal No constipation 2012 Gastrointestinal No diarrhea 12/27/2012 Gastrointestinal No nausea 12/27/2012 Gastrointestinal No vomiting 12/27/2012 Constitutional recent illness 12/05/2012 Constitutional chills 12/05/2012 Constitutional fatigue 12/05/2012 Constitutional fever 12/05/2012 Constitutional No insomnia 12/05/2012 Constitutional malaise 12/05/2012 Eyes No blindness 12/05/2012 Eyes No vision change 12/05/2012 Ears/Nose/Throat/Neck No dental pain Ears/Nose/Throat/Neck No dizziness 2012 Ears/Nose/Throat/Neck No dysphagia 2012 Ears/Nose/Throat/Neck No headache 2012 Ears/Nose/Throat/Neck No hearing loss Ears/Nose/Throat/Neck No nasal allergies 12/05/2012 Ears/Nose/Throat/Neck No sore throat Ears/Nose/Throat/Neck No postnasal drip 12/05/2012 Ears/Nose/Throat/Neck No sinus congestion 12/05/2012 Cardiovascular No chest pain/pressure Cardiovascular No dyspnea 12/05/2012 Cardiovascular No edema 12/05/2012 Cardiovascular No exercise intolerance Cardiovascular fatigue 12/05/2012 Cardiovascular No near-syncope/dizziness 12/05/2012 Gastrointestinal No abdominal pain 2012 Gastrointestinal No constipation 2012 Gastrointestinal No diarrhea 12/05/2012 Gastrointestinal No gastroesophageal reflux 12/05/2012 Gastrointestinal No melena 12/05/2012 Gastrointestinal No nausea 12/05/2012 Gastrointestinal No vomiting 12/05/2012 Genitourinary/Nephrology No dysuria 12/05 Genitourinary/Nephrology No nocturia Genitourinary/Nephrology No urinary incontinence 12/05/2012 Musculoskeletal No stiffness 12/05/2012 Musculoskeletal No swelling 12/05/2012 Musculoskeletal muscle weakness 2012 Musculoskeletal No myalgias 12/05/2012 Dermatologic rash 12/05/2012 Dermatologic No scar 12/05/2012 Dermatologic No sores 12/05/2012 Psychiatric No anxiety 12/05/2012 Psychiatric No depression 12/05/2012 Neurologic No dizziness 12/05/2012 Neurologic No headache 12/05/2012 Neurologic No neck pain 12/05/2012 Neurologic No syncope 12/05/2012 Constitutional No recent illness 2011 Constitutional No night sweats 2011 Constitutional No chills 10/11/2012 Constitutional No diaphoresis 10/11/2012 Constitutional No fatigue 10/11/2012 Constitutional No fever 10/11/2012 Eyes No eye discharge 10/11/2012 Eyes No eye erythema 10/11/2012 Eyes No vision change 10/11/2012 Ears/Nose/Throat/Neck No dizziness 2011 Ears/Nose/Throat/Neck No headache 2011 Respiratory No productive sputum 2011 Respiratory No chest congestion 2011 Respiratory No cough 10/11/2012 Gastrointestinal hemorrhoids 10/11/2012 Gastrointestinal No abdominal pain 2011 Gastrointestinal constipation 10/11/2012 Gastrointestinal No diarrhea 10/11/2012 Gastrointestinal gas and bloating 2011 Gastrointestinal No nausea 10/11/2012 Gastrointestinal No vomiting 10/11/2012 Dermatologic No rash 10/11/2012 Psychiatric No anxiety 10/11/2012 Psychiatric No depression 10/11/2012 Genitourinary/Nephrology No dysuria 10/11 Genitourinary/Nephrology No nocturia Genitourinary/Nephrology No urinary incontinence 10/11/2012 Constitutional No recent illness 2011 Constitutional No anorexia 07/25/2012 Constitutional No night sweats 2011 Constitutional No chills 07/25/2012 Constitutional No diaphoresis 07/25/2012 Constitutional No fatigue 07/25/2012 Constitutional No fever 07/25/2012 Constitutional No insomnia 07/25/2012 Constitutional No malaise 07/25/2012 Eyes No eye discharge 07/25/2012 Eyes No eye erythema 07/25/2012 Ears/Nose/Throat/Neck No dizziness 2011 Cardiovascular No chest pain/pressure 07/2012 Respiratory No productive sputum 2011 Respiratory No cough 07/25/2012 Gastrointestinal No abdominal pain 2011 Gastrointestinal No constipation 2011 Gastrointestinal No vomiting 07/25/2012 Gastrointestinal No nausea 07/25/2012 Genitourinary/Nephrology No dysuria 07/25 Dermatologic No rash 07/25/2012 Dermatologic No sores 07/25/2012 Neurologic No alteration of consciousness 07/25/2012 Constitutional No recent illness 2011 Constitutional No anorexia 07/11/2012 Constitutional No night sweats 2011 Constitutional No chills 07/11/2012 Constitutional No diaphoresis 07/11/2012 Constitutional No fatigue 07/11/2012 Constitutional No fever 07/11/2012 Constitutional No insomnia 07/11/2012 Constitutional No malaise 07/11/2012 Eyes No eye discharge 07/11/2012 Eyes No eye erythema 07/11/2012 Ears/Nose/Throat/Neck No dizziness 2011 Ears/Nose/Throat/Neck No headache 2011 Respiratory No cough 07/11/2012 Gastrointestinal No abdominal pain 2011 Gastrointestinal No constipation 2011 Gastrointestinal No diarrhea 07/11/2012 Gastrointestinal gastroesophageal reflux 07/11/2012 Gastrointestinal No nausea 07/11/2012 Gastrointestinal No vomiting 07/11/2012 Musculoskeletal No joint complaint 2011 Dermatologic No rash 07/11/2012 Constitutional No recent illness 2011 Constitutional No anorexia 06/13/2012 Constitutional No night sweats 2011 Constitutional No chills 06/13/2012 Constitutional No diaphoresis 06/13/2012 Constitutional No fatigue 06/13/2012 Constitutional No fever 06/13/2012 Constitutional No insomnia 06/13/2012 Constitutional No malaise 06/13/2012 Gastrointestinal No abdominal pain 2011 Gastrointestinal No constipation 2011 Gastrointestinal No diarrhea 06/13/2012 Gastrointestinal gastroesophageal reflux 06/13/2012 Gastrointestinal No nausea 06/13/2012 Gastrointestinal No vomiting 06/13/2012 Eyes No eye discharge 06/13/2012 Eyes No eye erythema 06/13/2012 Ears/Nose/Throat/Neck No dizziness 2011 Ears/Nose/Throat/Neck No headache 2011 Respiratory No cough 06/13/2012 Dermatologic No rash 06/13/2012 Musculoskeletal No joint complaint 2011 Constitutional No recent illness 2011 Constitutional No night sweats 2011 Constitutional No chills 05/10/2012 Constitutional No diaphoresis 05/10/2012 Constitutional No fatigue 05/10/2012 Constitutional No fever 05/10/2012 Eyes No eye discharge 05/10/2012 Eyes No eye erythema 05/10/2012 Eyes No vision change 05/10/2012 Ears/Nose/Throat/Neck No dizziness 2011 Ears/Nose/Throat/Neck No headache 2011 Cardiovascular No chest pain/pressure Respiratory No productive sputum 2011 Respiratory No chest congestion 2011 Respiratory No cough 05/10/2012 Gastrointestinal hemorrhoids 05/10/2012 Gastrointestinal No abdominal pain 2011 Gastrointestinal constipation 05/10/2012 Gastrointestinal No diarrhea 05/10/2012 Gastrointestinal gas and bloating 2011 Gastrointestinal No nausea 05/10/2012 Gastrointestinal No vomiting 05/10/2012 Dermatologic No rash 05/10/2012 Gastrointestinal No diarrhea 03/20/2012 Genitourinary/Nephrology No dysuria 03/20 Musculoskeletal No joint complaint 2011 Dermatologic No rash 03/20/2012 Dermatologic No sores 03/20/2012 Constitutional No recent illness 2011 Constitutional No anorexia 03/20/2012 Constitutional No night sweats 2011 Constitutional No chills 03/20/2012 Constitutional No diaphoresis 03/20/2012 Constitutional No fatigue 03/20/2012 Constitutional No fever 03/20/2012 Constitutional No insomnia 03/20/2012 Eyes No eye discharge 03/20/2012 Eyes No eye erythema 03/20/2012 Ears/Nose/Throat/Neck No dizziness 2011 Ears/Nose/Throat/Neck nasal allergies 02/2012 Ears/Nose/Throat/Neck nasal discharge 02/2012 Ears/Nose/Throat/Neck No sore throat 02/2012 Ears/Nose/Throat/Neck No otalgia 2011 Cardiovascular No chest pain/pressure 02/2012 Respiratory No productive sputum 2011 Respiratory No chest congestion 2011 Respiratory cough 03/20/2012 Respiratory No wheezing 03/20/2012 Gastrointestinal No vomiting 03/20/2012 Gastrointestinal No nausea 03/20/2012 Gastrointestinal No abdominal pain 2011 Gastrointestinal No constipation 2011 Eyes No vision change 02/28/2012 Constitutional No chills 02/28/2012 Constitutional No fever 02/28/2012 Cardiovascular No chest pain/pressure Gastrointestinal No diarrhea 02/28/2012 Gastrointestinal No nausea 02/28/2012 Gastrointestinal No vomiting 02/28/2012 Constitutional No recent illness 2011 Constitutional No night sweats 2011 Constitutional No diaphoresis 02/28/2012 Constitutional No fatigue 02/28/2012 Eyes No eye discharge 02/28/2012 Eyes No eye erythema 02/28/2012 Ears/Nose/Throat/Neck No dizziness 2011 Ears/Nose/Throat/Neck No headache 2011 Respiratory No productive sputum 2011 Respiratory No chest congestion 2011 Respiratory No cough 02/28/2012 Gastrointestinal hemorrhoids 02/28/2012 Gastrointestinal No abdominal pain 2011 Gastrointestinal constipation 02/28/2012 Gastrointestinal gas and bloating 2011 Dermatologic No rash 02/28/2012 Constitutional No fever 12/13/2011 Gastrointestinal No vomiting 12/13/2011 Gastrointestinal No nausea 12/13/2011 Gastrointestinal constipation 12/13/2011 Gastrointestinal No diarrhea 12/13/2011 Cardiovascular No chest pain/pressure Ears/Nose/Throat/Neck No headache 2011 Constitutional No recent illness 2011 Constitutional No night sweats 2011 Constitutional No chills 12/13/2011 Constitutional No fatigue 12/13/2011 Constitutional No diaphoresis 12/13/2011 Eyes No eye discharge 12/13/2011 Eyes No eye erythema 12/13/2011 Ears/Nose/Throat/Neck No dizziness 2011 Respiratory No productive sputum 2011 Respiratory No chest congestion 2011 Respiratory No cough 12/13/2011 Gastrointestinal No abdominal pain 2011 Gastrointestinal gas and bloating 2011 Gastrointestinal hemorrhoids 12/13/2011 Dermatologic No rash 12/13/2011 Constitutional No recent illness 2011 Constitutional No night sweats 2011 Constitutional No diaphoresis 12/05/2011 Constitutional No chills 12/05/2011 Constitutional No fatigue 12/05/2011 Constitutional No fever 12/05/2011 Constitutional No insomnia 12/05/2011 Eyes No eye discharge 12/05/2011 Eyes No eye erythema 12/05/2011 Ears/Nose/Throat/Neck No nasal allergies 12/05/2011 Ears/Nose/Throat/Neck No nasal discharge 12/05/2011 Ears/Nose/Throat/Neck No otitis media Ears/Nose/Throat/Neck No sinus congestion 12/05/2011 Ears/Nose/Throat/Neck No sore throat Cardiovascular No chest pain/pressure Respiratory No productive sputum 2011 Respiratory No aspiration 12/05/2011 Respiratory No cough 12/05/2011 Gastrointestinal No nausea 12/05/2011 Gastrointestinal No vomiting 12/05/2011 Gastrointestinal No abdominal pain 2011 Gastrointestinal No constipation 2011 Gastrointestinal No diarrhea 12/05/2011 Dermatologic sores 12/05/2011 Constitutional No recent illness 2010 Constitutional No fatigue 07/26/2011 Constitutional No fever 07/26/2011 Constitutional No insomnia 07/26/2011 Eyes No eye discharge 07/26/2011 Eyes No eye erythema 07/26/2011 Ears/Nose/Throat/Neck No sore throat 08/2011 Ears/Nose/Throat/Neck No nasal discharge 07/26/2011 Ears/Nose/Throat/Neck No headache 2010 Ears/Nose/Throat/Neck No dizziness 2010 Cardiovascular No chest pain/pressure 08/2011 Cardiovascular No near-syncope/dizziness 07/26/2011 Cardiovascular No dyspnea 07/26/2011 Respiratory No chest congestion 2010 Respiratory No cough 07/26/2011 Respiratory No chest tightness 2010 Respiratory No dyspnea on exertion 2010 Gastrointestinal gas and bloating 2010 Gastrointestinal gastroesophageal reflux 07/26/2011 Genitourinary/Nephrology No dysuria 07/26 Gastrointestinal No nausea 07/26/2011 Gastrointestinal No abdominal pain 2010 Gastrointestinal No constipation 2010 Gastrointestinal No diarrhea 07/26/2011 Gastrointestinal No vomiting 07/26/2011 Dermatologic No rash 07/26/2011 Neurologic No gait abnormality 2010 Neurologic No alteration of consciousness 07/26/2011 Constitutional No fever 06/23/2011 Constitutional No chills 06/23/2011 Ears/Nose/Throat/Neck No dizziness 2010 Ears/Nose/Throat/Neck No facial pain 05/2011 Ears/Nose/Throat/Neck No sore throat 05/2011 Cardiovascular No chest pain/pressure 05/2011 Cardiovascular No palpitations 2010 Gastrointestinal No nausea 06/23/2011 Gastrointestinal No vomiting 06/23/2011 Constitutional No fatigue 06/23/2011 Constitutional No insomnia 06/23/2011 Constitutional No recent illness 2010 Gastrointestinal No constipation 2010 Gastrointestinal No diarrhea 06/23/2011 Gastrointestinal No abdominal pain 2010 Constitutional No night sweats 2010 Constitutional No recent illness 2010 Constitutional No anorexia 06/07/2011 Constitutional No chills 06/07/2011 Constitutional No fatigue 06/07/2011 Constitutional No fever 06/07/2011 Respiratory cough 06/07/2011 Respiratory No chest congestion 2010 Respiratory No chest tightness 2010 Respiratory No aspiration 06/07/2011 Respiratory No apneic events 06/07/2011 Cardiovascular No arrhythmia 06/07/2011 Cardiovascular No chest pain/pressure Cardiovascular No dyspnea 06/07/2011 Cardiovascular No edema 06/07/2011 Cardiovascular fatigue 06/07/2011 Cardiovascular hypertension 06/07/2011 Musculoskeletal No swelling 06/07/2011 Musculoskeletal No arthralgia(s) 2010 Musculoskeletal No back pain 06/07/2011 Musculoskeletal No myalgias 06/07/2011 Neurologic No alteration of consciousness 06/07/2011 Neurologic No headache 06/07/2011 Neurologic No hearing loss 06/07/2011 Neurologic No memory loss 06/07/2011 Psychiatric No depression 06/07/2011 Psychiatric No anxiety 06/07/2011 Physical Exam Exam Name System Name Item Name Status Result Effective Dates Notes Full Exam - General 1994 Constitutional general appearance Overall: well developed 08/22/2017 None Full Exam - General 1994 Constitutional general appearance Overall: in no acute distress 08/22/2017 None Full Exam - General 1994 Constitutional general appearance Overall: well nourished 08/22/2017 None Full Exam - General 1994 Eyes pupils and irises Overall: pupils equal, round, reactive to light and accomodation 08/22/2017 None Full Exam - General 1994 Ears/Nose/Throat otoscopic exam Overall: external auditory canals clear 08/22/2017 None Full Exam - General 1994 Ears/Nose/Throat otoscopic exam Overall: tympanic membranes clear 08/22/2017 None Full Exam - General 1994 Ears/Nose/Throat oral cavity/pharynx/larynx Overall: oral mucosa clear 08/22/2017 None Full Exam - General 1994 Ears/Nose/Throat oral cavity/pharynx/larynx Overall: oropharyngeal mucosa clear 08/22/2017 None Full Exam - General 1994 Ears/Nose/Throat oral cavity/pharynx/larynx Overall: no masses 08/22/2017 None Full Exam - General 1994 Respiratory auscultation Overall: breath sounds clear bilaterally 08/22/2017 None Full Exam - General 1994 Respiratory respiratory effort/rhythm Overall: no retractions 08/22/2017 None Full Exam - General 1994 Respiratory respiratory effort/rhythm Overall: normal rate 08/22/2017 None Full Exam - General 1994 Cardiovascular extremities Overall: no clubbing 08/22/2017 None Full Exam - General 1994 Cardiovascular auscultation of heart Overall: regular rate 08/22/2017 None Full Exam - General 1994 Cardiovascular auscultation of heart Overall: normal heart sounds 08/22/2017 None Full Exam - General 1994 Cardiovascular auscultation of heart Murmur: previously known murmur changed 08/22/2017 None Full Exam - General 1994 Cardiovascular auscultation of heart Systolic murmur: midsystolic 08/22/2017 None Full Exam - General 1994 Cardiovascular auscultation of heart Systolic murmur grade: III/ 08/22/2017 None Full Exam - General 1994 Abdomen abdominal exam Overall: no tenderness 08/22/2017 None Full Exam - General 1994 Abdomen abdominal exam Overall: normal bowel sounds 08/22/2017 None Full Exam - General 1994 Musculoskeletal head and neck Overall: head atraumatic 08/22/2017 None Full Exam - General 1994 Musculoskeletal head and neck Overall: cervical spine benign 08/22/2017 None Full Exam - General 1994 Neurologic gait Overall: no ataxia, no unsteadiness 08/22/2017 None Full Exam - General 1994 Neurologic cranial nerves Overall: crainial nerves 2 - 12 grossly intact 08/22/2017 None Full Exam - General 1994 Psychiatric orientation/consciousness Overall: oriented to person, place and time 08/22/2017 None Full Exam - General 1994 Psychiatric mood and affect Overall: normal mood and affect 08/22/2017 None Full Exam - General 1994 Psychiatric mood and affect Mood: happy 08/22/2017 None Full Exam - General 1994 Constitutional general appearance Overall: well developed 07/26/2017 None Full Exam - General 1994 Constitutional general appearance Overall: in no acute distress 07/26/2017 None Full Exam - General 1994 Constitutional general appearance Overall: well nourished 07/26/2017 None Full Exam - General 1994 Eyes pupils and irises Overall: pupils equal, round, reactive to light and accomodation 07/26/2017 None Full Exam - General 1994 Respiratory auscultation Overall: breath sounds clear bilaterally 07/26/2017 None Full Exam - General 1994 Respiratory respiratory effort/rhythm Overall: no retractions 07/26/2017 None Full Exam - General 1994 Respiratory respiratory effort/rhythm Overall: normal rate 07/26/2017 None Full Exam - General 1994 Cardiovascular extremities Overall: no clubbing 07/26/2017 None Full Exam - General 1994 Cardiovascular auscultation of heart Overall: regular rate 07/26/2017 None Full Exam - General 1994 Cardiovascular auscultation of heart Overall: normal heart sounds 07/26/2017 None Full Exam - General 1994 Cardiovascular auscultation of heart Murmur: previously known murmur changed 07/26/2017 None Full Exam - General 1994 Cardiovascular auscultation of heart Systolic murmur: midsystolic 07/26/2017 None Full Exam - General 1994 Cardiovascular auscultation of heart Systolic murmur grade: III/ 07/26/2017 None Full Exam - General 1994 Abdomen abdominal exam Overall: no tenderness 07/26/2017 None Full Exam - General 1994 Abdomen abdominal exam Overall: normal bowel sounds 07/26/2017 None Full Exam - General 1994 Musculoskeletal head and neck Overall: head atraumatic 07/26/2017 None Full Exam - General 1994 Neurologic gait Overall: no ataxia, no unsteadiness 07/26/2017 None Full Exam - General 1994 Neurologic cranial nerves Overall: crainial nerves 2 - 12 grossly intact 07/26/2017 None Full Exam - General 1994 Psychiatric orientation/consciousness Overall: oriented to person, place and time 07/26/2017 None Full Exam - General 1994 Psychiatric mood and affect Overall: normal mood and affect 07/26/2017 None Full Exam - General 1994 Eyes conjunctiva /eyelids Overall: conjunctiva clear 07/26/2017 None Full Exam - General 1994 Ears/Nose/Throat lips/teeth/gingiva Overall: benign lips 07/26/2017 None Full Exam - General 1994 Ears/Nose/Throat oral cavity/pharynx/larynx Overall: oral mucosa clear 07/26/2017 pale Full Exam - General 1994 Psychiatric mood and affect Mood: flat 07/26/2017 None Full Exam - General 1994 Constitutional general appearance Overall: well developed 06/27/2017 None Full Exam - General 1994 Constitutional general appearance Overall: in no acute distress 06/27/2017 None Full Exam - General 1994 Constitutional general appearance Overall: well nourished 06/27/2017 None Full Exam - General 1994 Eyes pupils and irises Overall: pupils equal, round, reactive to light and accomodation 06/27/2017 None Full Exam - General 1994 Ears/Nose/Throat otoscopic exam Overall: external auditory canals clear 06/27/2017 None Full Exam - General 1994 Ears/Nose/Throat otoscopic exam Overall: tympanic membranes clear 06/27/2017 None Full Exam - General 1994 Ears/Nose/Throat oral cavity/pharynx/larynx Overall: oral mucosa clear 06/27/2017 None Full Exam - General 1994 Ears/Nose/Throat oral cavity/pharynx/larynx Overall: oropharyngeal mucosa clear 06/27/2017 None Full Exam - General 1994 Ears/Nose/Throat oral cavity/pharynx/larynx Overall: no masses 06/27/2017 None Full Exam - General 1994 Respiratory auscultation Overall: breath sounds clear bilaterally 06/27/2017 None Full Exam - General 1994 Respiratory respiratory effort/rhythm Overall: no retractions 06/27/2017 None Full Exam - General 1994 Respiratory respiratory effort/rhythm Overall: normal rate 06/27/2017 None Full Exam - General 1994 Cardiovascular extremities Overall: no clubbing 06/27/2017 None Full Exam - General 1994 Cardiovascular auscultation of heart Overall: regular rate 06/27/2017 None Full Exam - General 1994 Cardiovascular auscultation of heart Overall: normal heart sounds 06/27/2017 None Full Exam - General 1994 Cardiovascular auscultation of heart Murmur: previously known murmur changed 06/27/2017 None Full Exam - General 1994 Cardiovascular auscultation of heart Systolic murmur: midsystolic 06/27/2017 None Full Exam - General 1994 Cardiovascular auscultation of heart Systolic murmur grade: III/ 06/27/2017 None Full Exam - General 1994 Abdomen abdominal exam Overall: no tenderness 06/27/2017 None Full Exam - General 1994 Abdomen abdominal exam Overall: normal bowel sounds 06/27/2017 None Full Exam - General 1994 Musculoskeletal head and neck Overall: head atraumatic 06/27/2017 None Full Exam - General 1994 Musculoskeletal head and neck Overall: cervical spine benign 06/27/2017 None Full Exam - General 1994 Neurologic gait Overall: no ataxia, no unsteadiness 06/27/2017 None Full Exam - General 1994 Neurologic cranial nerves Overall: crainial nerves 2 - 12 grossly intact 06/27/2017 None Full Exam - General 1994 Psychiatric orientation/consciousness Overall: oriented to person, place and time 06/27/2017 None Full Exam - General 1994 Psychiatric mood and affect Overall: normal mood and affect 06/27/2017 None Full Exam - General 1994 Psychiatric mood and affect Mood: happy 06/27/2017 None Full Exam - General 1994 Constitutional general appearance Overall: well developed 05/23/2017 None Full Exam - General 1994 Constitutional general appearance Overall: in no acute distress 05/23/2017 None Full Exam - General 1994 Eyes pupils and irises Overall: pupils equal, round, reactive to light and accomodation 05/23/2017 None Full Exam - General 1994 Ears/Nose/Throat otoscopic exam Overall: external auditory canals clear 05/23/2017 None Full Exam - General 1994 Ears/Nose/Throat otoscopic exam Overall: tympanic membranes clear 05/23/2017 None Full Exam - General 1994 Ears/Nose/Throat oral cavity/pharynx/larynx Overall: oral mucosa clear 05/23/2017 None Full Exam - General 1994 Ears/Nose/Throat oral cavity/pharynx/larynx Overall: oropharyngeal mucosa clear 05/23/2017 None Full Exam - General 1994 Ears/Nose/Throat oral cavity/pharynx/larynx Overall: no masses 05/23/2017 None Full Exam - General 1994 Respiratory auscultation Overall: breath sounds clear bilaterally 05/23/2017 None Full Exam - General 1994 Respiratory respiratory effort/rhythm Overall: no retractions 05/23/2017 None Full Exam - General 1994 Respiratory respiratory effort/rhythm Overall: normal rate 05/23/2017 None Full Exam - General 1994 Cardiovascular extremities Overall: no clubbing 05/23/2017 None Full Exam - General 1994 Cardiovascular auscultation of heart Overall: regular rate 05/23/2017 None Full Exam - General 1994 Cardiovascular auscultation of heart Overall: normal heart sounds 05/23/2017 None Full Exam - General 1994 Cardiovascular auscultation of heart Murmur: previously known murmur changed 05/23/2017 None Full Exam - General 1994 Cardiovascular auscultation of heart Systolic murmur: midsystolic 05/23/2017 None Full Exam - General 1994 Cardiovascular auscultation of heart Systolic murmur grade: III/ 05/23/2017 None Full Exam - General 1994 Abdomen abdominal exam Overall: no tenderness 05/23/2017 None Full Exam - General 1994 Abdomen abdominal exam Overall: normal bowel sounds 05/23/2017 None Full Exam - General 1994 Musculoskeletal head and neck Overall: head atraumatic 05/23/2017 None Full Exam - General 1994 Musculoskeletal head and neck Overall: cervical spine benign 05/23/2017 None Full Exam - General 1994 Neurologic gait Overall: no ataxia, no unsteadiness 05/23/2017 None Full Exam - General 1994 Neurologic cranial nerves Overall: crainial nerves 2 - 12 grossly intact 05/23/2017 None Full Exam - General 1994 Psychiatric orientation/consciousness Overall: oriented to person, place and time 05/23/2017 None Full Exam - General 1994 Psychiatric mood and affect Overall: normal mood and affect 05/23/2017 None Full Exam - General 1994 Psychiatric mood and affect Mood: happy 05/23/2017 None Full Exam - General 1994 Constitutional general appearance Nourishment: thin 05/23/2017 None Full Exam - General 1994 Constitutional general appearance Overall: well developed 05/10/2017 None Full Exam - General 1994 Constitutional general appearance Overall: in no acute distress 05/10/2017 None Full Exam - General 1994 Constitutional general appearance Overall: well nourished 05/10/2017 None Full Exam - General 1994 Eyes pupils and irises Overall: pupils equal, round, reactive to light and accomodation 05/10/2017 None Full Exam - General 1994 Ears/Nose/Throat otoscopic exam Overall: external auditory canals clear 05/10/2017 None Full Exam - General 1994 Ears/Nose/Throat otoscopic exam Overall: tympanic membranes clear 05/10/2017 None Full Exam - General 1994 Ears/Nose/Throat oral cavity/pharynx/larynx Overall: oral mucosa clear 05/10/2017 None Full Exam - General 1994 Ears/Nose/Throat oral cavity/pharynx/larynx Overall: oropharyngeal mucosa clear 05/10/2017 None Full Exam - General 1994 Ears/Nose/Throat oral cavity/pharynx/larynx Overall: no masses 05/10/2017 None Full Exam - General 1994 Respiratory auscultation Overall: breath sounds clear bilaterally 05/10/2017 None Full Exam - General 1994 Respiratory respiratory effort/rhythm Overall: no retractions 05/10/2017 None Full Exam - General 1994 Respiratory respiratory effort/rhythm Overall: normal rate 05/10/2017 None Full Exam - General 1994 Cardiovascular extremities Overall: no clubbing 05/10/2017 None Full Exam - General 1994 Cardiovascular auscultation of heart Overall: regular rate 05/10/2017 None Full Exam - General 1994 Cardiovascular auscultation of heart Overall: normal heart sounds 05/10/2017 None Full Exam - General 1994 Cardiovascular auscultation of heart Murmur: previously known murmur changed 05/10/2017 None Full Exam - General 1994 Cardiovascular auscultation of heart Systolic murmur: midsystolic 05/10/2017 None Full Exam - General 1994 Cardiovascular auscultation of heart Systolic murmur grade: III/ 05/10/2017 None Full Exam - General 1994 Abdomen abdominal exam Overall: no tenderness 05/10/2017 None Full Exam - General 1994 Abdomen abdominal exam Overall: normal bowel sounds 05/10/2017 None Full Exam - General 1994 Musculoskeletal head and neck Overall: head atraumatic 05/10/2017 None Full Exam - General 1994 Musculoskeletal head and neck Overall: cervical spine benign 05/10/2017 None Full Exam - General 1994 Neurologic gait Overall: no ataxia, no unsteadiness 05/10/2017 None Full Exam - General 1994 Neurologic cranial nerves Overall: crainial nerves 2 - 12 grossly intact 05/10/2017 None Full Exam - General 1994 Psychiatric orientation/consciousness Overall: oriented to person, place and time 05/10/2017 None Full Exam - General 1994 Psychiatric mood and affect Overall: normal mood and affect 05/10/2017 None Full Exam - General 1994 Psychiatric mood and affect Mood: happy 05/10/2017 None Full Exam - General 1994 Constitutional general appearance Overall: well developed 04/27/2017 None Full Exam - General 1994 Constitutional general appearance Overall: in no acute distress 04/27/2017 None Full Exam - General 1994 Constitutional general appearance Overall: well nourished 04/27/2017 None Full Exam - General 1994 Eyes pupils and irises Overall: pupils equal, round, reactive to light and accomodation 04/27/2017 None Full Exam - General 1994 Ears/Nose/Throat otoscopic exam Overall: external auditory canals clear 04/27/2017 None Full Exam - General 1994 Ears/Nose/Throat otoscopic exam Overall: tympanic membranes clear 04/27/2017 None Full Exam - General 1994 Ears/Nose/Throat oral cavity/pharynx/larynx Overall: oral mucosa clear 04/27/2017 None Full Exam - General 1994 Ears/Nose/Throat oral cavity/pharynx/larynx Overall: oropharyngeal mucosa clear 04/27/2017 None Full Exam - General 1994 Ears/Nose/Throat oral cavity/pharynx/larynx Overall: no masses 04/27/2017 None Full Exam - General 1994 Respiratory auscultation Overall: breath sounds clear bilaterally 04/27/2017 None Full Exam - General 1994 Respiratory respiratory effort/rhythm Overall: no retractions 04/27/2017 None Full Exam - General 1994 Respiratory respiratory effort/rhythm Overall: normal rate 04/27/2017 None Full Exam - General 1994 Cardiovascular extremities Overall: no clubbing 04/27/2017 None Full Exam - General 1994 Cardiovascular auscultation of heart Overall: regular rate 04/27/2017 None Full Exam - General 1994 Cardiovascular auscultation of heart Overall: normal heart sounds 04/27/2017 None Full Exam - General 1994 Cardiovascular auscultation of heart Murmur: previously known murmur changed 04/27/2017 None Full Exam - General 1994 Cardiovascular auscultation of heart Systolic murmur: midsystolic 04/27/2017 None Full Exam - General 1994 Cardiovascular auscultation of heart Systolic murmur grade: III/ 04/27/2017 None Full Exam - General 1994 Abdomen abdominal exam Overall: no tenderness 04/27/2017 None Full Exam - General 1994 Abdomen abdominal exam Overall: normal bowel sounds 04/27/2017 None Full Exam - General 1994 Musculoskeletal head and neck Overall: head atraumatic 04/27/2017 None Full Exam - General 1994 Musculoskeletal head and neck Overall: cervical spine benign 04/27/2017 None Full Exam - General 1994 Neurologic gait Overall: no ataxia, no unsteadiness 04/27/2017 None Full Exam - General 1994 Neurologic cranial nerves Overall: crainial nerves 2 - 12 grossly intact 04/27/2017 None Full Exam - General 1994 Psychiatric orientation/consciousness Overall: oriented to person, place and time 04/27/2017 None Full Exam - General 1994 Psychiatric mood and affect Overall: normal mood and affect 04/27/2017 None Full Exam - General 1994 Psychiatric mood and affect Mood: happy 04/27/2017 None Full Exam - General 1994 Constitutional general appearance Development: well developed 03/30/2017 None Full Exam - General 1994 Constitutional general appearance Development: appears stated age 0603/30/2017 None Full Exam - General 1994 Constitutional general appearance Overall: in no acute distress 03/30/2017 None Full Exam - General 1994 Constitutional general appearance Overall: well nourished 03/30/2017 None Full Exam - General 1994 Eyes conjunctiva /eyelids Overall: conjunctiva clear 03/30/2017 None Full Exam - General 1994 Eyes conjunctiva /eyelids Overall: cornea clear 03/30/2017 None Full Exam - General 1994 Eyes conjunctiva /eyelids Overall: eyelids normal 03/30/2017 None Full Exam - General 1994 Eyes pupils and irises Overall: pupils equal, round, reactive to light and accomodation 03/30/2017 None Full Exam - General 1994 Ears/Nose/Throat otoscopic exam Overall: external auditory canals clear 03/30/2017 None Full Exam - General 1994 Ears/Nose/Throat otoscopic exam Overall: tympanic membranes clear 03/30/2017 None Full Exam - General 1994 Ears/Nose/Throat oral cavity/pharynx/larynx Overall: oral mucosa clear 03/30/2017 None Full Exam - General 1994 Ears/Nose/Throat oral cavity/pharynx/larynx Overall: oropharyngeal mucosa clear 03/30/2017 None Full Exam - General 1994 Ears/Nose/Throat oral cavity/pharynx/larynx Overall: no masses 03/30/2017 None Full Exam - General 1994 Respiratory auscultation Overall: breath sounds clear bilaterally 03/30/2017 None Full Exam - General 1994 Respiratory respiratory effort/rhythm Overall: no retractions 03/30/2017 None Full Exam - General 1994 Respiratory respiratory effort/rhythm Overall: normal rate 03/30/2017 None Full Exam - General 1994 Cardiovascular extremities Overall: no clubbing 03/30/2017 None Full Exam - General 1994 Cardiovascular extremities Edema present: pitting 03/30/2017 None Full Exam - General 1994 Cardiovascular extremities Edema present: severity 1+ - 4 +: 2+ 03/30/2017 None Full Exam - General 1994 Cardiovascular extremities Edema present: bilateral 03/30/2017 None Full Exam - General 1994 Cardiovascular extremities Edema present: to leg 03/30/2017 None Full Exam - General 1994 Cardiovascular auscultation of heart Overall: regular rate 03/30/2017 None Full Exam - General 1994 Cardiovascular auscultation of heart Overall: normal heart sounds 03/30/2017 None Full Exam - General 1994 Cardiovascular auscultation of heart Murmur: previously known murmur changed 03/30/2017 None Full Exam - General 1994 Cardiovascular auscultation of heart Systolic murmur: holosystolic 03/30/2017 None Full Exam - General 1994 Cardiovascular auscultation of heart Systolic murmur: midsystolic 03/30/2017 None Full Exam - General 1994 Cardiovascular auscultation of heart Systolic murmur grade: III/ 03/30/2017 None Full Exam - General 1994 Abdomen abdominal exam Overall: no tenderness 03/30/2017 None Full Exam - General 1994 Abdomen abdominal exam Overall: normal bowel sounds 03/30/2017 None Full Exam - General 1994 Lymphatic neck nodes Overall: anterior cervical chain benign 03/30/2017 None Full Exam - General 1994 Lymphatic neck nodes Overall: posterior cervical chain benign 03/30/2017 None Full Exam - General 1994 Musculoskeletal gait and station Overall: normal gait 03/30/2017 None Full Exam - General 1994 Musculoskeletal gait and station Overall: normal station 03/30/2017 None Full Exam - General 1994 Musculoskeletal head and neck Overall: head atraumatic 03/30/2017 None Full Exam - General 1994 Musculoskeletal head and neck Overall: cervical spine benign 03/30/2017 None Full Exam - General 1994 Neurologic mental status Overall: alert 03/30/2017 None Full Exam - General 1994 Neurologic mental status Overall: oriented 03/30/2017 None Full Exam - General 1994 Neurologic gait Overall: no ataxia, no unsteadiness 03/30/2017 None Full Exam - General 1994 Neurologic cranial nerves Overall: crainial nerves 2 - 12 grossly intact 03/30/2017 None Full Exam - General 1994 Psychiatric orientation/consciousness Overall: oriented to person, place and time 03/30/2017 None Full Exam - General 1994 Psychiatric mood and affect Overall: normal mood and affect 03/30/2017 None Full Exam - General 1994 Psychiatric mood and affect Mood: happy 03/30/2017 None Full Exam - General 1994 Constitutional general appearance Development: well developed 02/27/2017 None Full Exam - General 1994 Constitutional general appearance Development: appears stated age 0502/27/2017 None Full Exam - General 1994 Constitutional general appearance Overall: in no acute distress 02/27/2017 None Full Exam - General 1994 Constitutional general appearance Overall: well nourished 02/27/2017 None Full Exam - General 1994 Eyes conjunctiva /eyelids Overall: conjunctiva clear 02/27/2017 None Full Exam - General 1994 Eyes conjunctiva /eyelids Overall: cornea clear 02/27/2017 None Full Exam - General 1994 Eyes conjunctiva /eyelids Overall: eyelids normal 02/27/2017 None Full Exam - General 1994 Eyes pupils and irises Overall: pupils equal, round, reactive to light and accomodation 02/27/2017 None Full Exam - General 1994 Ears/Nose/Throat otoscopic exam Overall: external auditory canals clear 02/27/2017 None Full Exam - General 1994 Ears/Nose/Throat otoscopic exam Overall: tympanic membranes clear 02/27/2017 None Full Exam - General 1994 Ears/Nose/Throat oral cavity/pharynx/larynx Overall: oral mucosa clear 02/27/2017 None Full Exam - General 1994 Ears/Nose/Throat oral cavity/pharynx/larynx Overall: oropharyngeal mucosa clear 02/27/2017 None Full Exam - General 1994 Ears/Nose/Throat oral cavity/pharynx/larynx Overall: no masses 02/27/2017 None Full Exam - General 1994 Respiratory auscultation Overall: breath sounds clear bilaterally 02/27/2017 None Full Exam - General 1994 Respiratory respiratory effort/rhythm Overall: no retractions 02/27/2017 None Full Exam - General 1994 Respiratory respiratory effort/rhythm Overall: normal rate 02/27/2017 None Full Exam - General 1994 Cardiovascular extremities Overall: no clubbing 02/27/2017 None Full Exam - General 1994 Cardiovascular extremities Edema present: pitting 02/27/2017 None Full Exam - General 1994 Cardiovascular extremities Edema present: severity 1+ - 4 +: 2+ 02/27/2017 None Full Exam - General 1994 Cardiovascular extremities Edema present: bilateral 02/27/2017 None Full Exam - General 1994 Cardiovascular extremities Edema present: to leg 02/27/2017 None Full Exam - General 1994 Cardiovascular auscultation of heart Overall: regular rate 02/27/2017 None Full Exam - General 1994 Cardiovascular auscultation of heart Overall: normal heart sounds 02/27/2017 None Full Exam - General 1994 Cardiovascular auscultation of heart Murmur: previously known murmur changed 02/27/2017 None Full Exam - General 1994 Cardiovascular auscultation of heart Systolic murmur: holosystolic 02/27/2017 None Full Exam - General 1994 Cardiovascular auscultation of heart Systolic murmur: midsystolic 02/27/2017 None Full Exam - General 1994 Cardiovascular auscultation of heart Systolic murmur grade: III/ 02/27/2017 None Full Exam - General 1994 Abdomen abdominal exam Overall: no tenderness 02/27/2017 None Full Exam - General 1994 Abdomen abdominal exam Overall: normal bowel sounds 02/27/2017 None Full Exam - General 1994 Lymphatic neck nodes Overall: anterior cervical chain benign 02/27/2017 None Full Exam - General 1994 Lymphatic neck nodes Overall: posterior cervical chain benign 02/27/2017 None Full Exam - General 1994 Musculoskeletal gait and station Overall: normal gait 02/27/2017 None Full Exam - General 1994 Musculoskeletal gait and station Overall: normal station 02/27/2017 None Full Exam - General 1994 Musculoskeletal head and neck Overall: head atraumatic 02/27/2017 None Full Exam - General 1994 Musculoskeletal head and neck Overall: cervical spine benign 02/27/2017 None Full Exam - General 1994 Neurologic mental status Overall: alert 02/27/2017 None Full Exam - General 1994 Neurologic mental status Overall: oriented 02/27/2017 None Full Exam - General 1994 Neurologic gait Overall: no ataxia, no unsteadiness 02/27/2017 None Full Exam - General 1994 Neurologic cranial nerves Overall: crainial nerves 2 - 12 grossly intact 02/27/2017 None Full Exam - General 1994 Psychiatric orientation/consciousness Overall: oriented to person, place and time 02/27/2017 None Full Exam - General 1994 Psychiatric mood and affect Overall: normal mood and affect 02/27/2017 None Full Exam - General 1994 Psychiatric mood and affect Mood: happy 02/27/2017 None Full Exam - General 1994 Constitutional general appearance Development: well developed 01/20/2017 None Full Exam - General 1994 Constitutional general appearance Development: appears stated age 0401/20/2017 None Full Exam - General 1994 Eyes pupils and irises Overall: pupils equal, round, reactive to light and accomodation 01/20/2017 None Full Exam - General 1994 Eyes conjunctiva /eyelids Overall: conjunctiva clear 01/20/2017 None Full Exam - General 1994 Eyes conjunctiva /eyelids Overall: cornea clear 01/20/2017 None Full Exam - General 1994 Eyes conjunctiva /eyelids Overall: eyelids normal 01/20/2017 None Full Exam - General 1994 Ears/Nose/Throat otoscopic exam Overall: external auditory canals clear 01/20/2017 None Full Exam - General 1994 Ears/Nose/Throat otoscopic exam Overall: tympanic membranes clear 01/20/2017 None Full Exam - General 1994 Ears/Nose/Throat oral cavity/pharynx/larynx Overall: oral mucosa clear 01/20/2017 None Full Exam - General 1994 Neck inspection of neck Overall: normal size 01/20/2017 None Full Exam - General 1994 Neck inspection of neck Overall: normal appearance 01/20/2017 None Full Exam - General 1994 Neck inspection of neck Overall: no masses 01/20/2017 None Full Exam - General 1994 Respiratory auscultation Overall: breath sounds clear bilaterally 01/20/2017 None Full Exam - General 1994 Respiratory respiratory effort/rhythm Overall: no retractions 01/20/2017 None Full Exam - General 1994 Respiratory respiratory effort/rhythm Overall: normal rate 01/20/2017 None Full Exam - General 1994 Cardiovascular auscultation of heart Overall: regular rate 01/20/2017 None Full Exam - General 1994 Cardiovascular auscultation of heart Overall: normal heart sounds 01/20/2017 None Full Exam - General 1994 Cardiovascular auscultation of heart Systolic murmur: holosystolic 01/20/2017 None Full Exam - General 1994 Cardiovascular auscultation of heart Systolic murmur grade: III/ 01/20/2017 None Full Exam - General 1994 Abdomen abdominal exam Overall: no tenderness 01/20/2017 None Full Exam - General 1994 Abdomen abdominal exam Overall: normal bowel sounds 01/20/2017 None Full Exam - General 1994 Lymphatic neck nodes Overall: anterior cervical chain benign 01/20/2017 None Full Exam - General 1994 Lymphatic neck nodes Overall: posterior cervical chain benign 01/20/2017 None Full Exam - General 1994 Musculoskeletal gait and station Overall: normal gait 01/20/2017 None Full Exam - General 1994 Musculoskeletal gait and station Overall: normal station 01/20/2017 None Full Exam - General 1994 Musculoskeletal head and neck Overall: head atraumatic 01/20/2017 None Full Exam - General 1994 Musculoskeletal head and neck Overall: cervical spine benign 01/20/2017 None Full Exam - General 1994 Neurologic mental status Overall: alert 01/20/2017 None Full Exam - General 1994 Neurologic mental status Overall: oriented 01/20/2017 None Full Exam - General 1994 Psychiatric orientation/consciousness Overall: oriented to person, place and time 01/20/2017 None Full Exam - General 1994 Psychiatric mood and affect Overall: normal mood and affect 01/20/2017 None Full Exam - General 1994 Cardiovascular extremities Edema present: severity 1+ - 4 +: 2+ 01/20/2017 None Full Exam - General 1994 Cardiovascular extremities Edema present: pitting 01/20/2017 None Full Exam - General 1994 Cardiovascular extremities Edema present: to leg 01/20/2017 None Full Exam - General 1994 Cardiovascular extremities Edema present: bilateral 01/20/2017 None Full Exam - General 1994 Constitutional general appearance Overall: in no acute distress 01/20/2017 None Full Exam - General 1994 Constitutional general appearance Overall: well nourished 01/20/2017 None Full Exam - General 1994 Ears/Nose/Throat oral cavity/pharynx/larynx Overall: oropharyngeal mucosa clear 01/20/2017 None Full Exam - General 1994 Ears/Nose/Throat oral cavity/pharynx/larynx Overall: no masses 01/20/2017 None Full Exam - General 1994 Cardiovascular extremities Overall: no clubbing 01/20/2017 None Full Exam - General 1994 Cardiovascular auscultation of heart Murmur: previously known murmur changed 01/20/2017 None Full Exam - General 1994 Cardiovascular auscultation of heart Systolic murmur: midsystolic 01/20/2017 None Full Exam - General 1994 Neurologic gait Overall: no ataxia, no unsteadiness 01/20/2017 None Full Exam - General 1994 Neurologic cranial nerves Overall: crainial nerves 2 - 12 grossly intact 01/20/2017 None Full Exam - General 1994 Psychiatric mood and affect Mood: happy 01/20/2017 None Full Exam - General 1994 Constitutional general appearance Overall: well developed 01/03/2017 None Full Exam - General 1994 Constitutional general appearance Overall: in no acute distress 01/03/2017 None Full Exam - General 1994 Constitutional general appearance Overall: well nourished 01/03/2017 None Full Exam - General 1994 Ears/Nose/Throat otoscopic exam Overall: external auditory canals clear 01/03/2017 None Full Exam - General 1994 Ears/Nose/Throat otoscopic exam Overall: tympanic membranes clear 01/03/2017 None Full Exam - General 1994 Ears/Nose/Throat oral cavity/pharynx/larynx Overall: oral mucosa clear 01/03/2017 None Full Exam - General 1994 Ears/Nose/Throat oral cavity/pharynx/larynx Overall: oropharyngeal mucosa clear 01/03/2017 None Full Exam - General 1994 Ears/Nose/Throat oral cavity/pharynx/larynx Overall: no masses 01/03/2017 None Full Exam - General 1994 Respiratory respiratory effort/rhythm Overall: no retractions 01/03/2017 None Full Exam - General 1994 Respiratory respiratory effort/rhythm Overall: normal rate 01/03/2017 None Full Exam - General 1994 Cardiovascular extremities Overall: no clubbing 01/03/2017 None Full Exam - General 1994 Cardiovascular auscultation of heart Overall: regular rate 01/03/2017 None Full Exam - General 1994 Cardiovascular auscultation of heart Overall: normal heart sounds 01/03/2017 None Full Exam - General 1994 Cardiovascular auscultation of heart Murmur: previously known murmur changed 01/03/2017 None Full Exam - General 1994 Cardiovascular auscultation of heart Systolic murmur: midsystolic 01/03/2017 None Full Exam - General 1994 Cardiovascular auscultation of heart Systolic murmur grade: III/ 01/03/2017 None Full Exam - General 1994 Musculoskeletal head and neck Overall: head atraumatic 01/03/2017 None Full Exam - General 1994 Neurologic gait Overall: no ataxia, no unsteadiness 01/03/2017 None Full Exam - General 1994 Neurologic cranial nerves Overall: crainial nerves 2 - 12 grossly intact 01/03/2017 None Full Exam - General 1994 Psychiatric orientation/consciousness Overall: oriented to person, place and time 01/03/2017 None Full Exam - General 1994 Psychiatric mood and affect Overall: normal mood and affect 01/03/2017 None Full Exam - General 1994 Eyes conjunctiva /eyelids Overall: conjunctiva clear 01/03/2017 None Full Exam - General 1994 Eyes conjunctiva /eyelids Overall: eyelids normal 01/03/2017 None Full Exam - General 1994 Ears/Nose/Throat oral cavity/pharynx/larynx Posterior Pharynx: clear post nasal drainage 01/03/2017 None Full Exam - General 1994 Ears/Nose/Throat lips/teeth/gingiva Overall: benign lips 01/03/2017 None Full Exam - General 1994 Respiratory auscultation Diffuse: diminished 01/03/2017 None Full Exam - General 1994 Psychiatric appearance Overall: well-groomed, good eye contact 01/03/2017 None Full Exam - General 1994 Respiratory auscultation Lower lung field: crackles 01/03/2017 None Full Exam - General 1994 Constitutional general appearance Overall: well developed 12/16/2016 None Full Exam - General 1994 Constitutional general appearance Overall: in no acute distress 12/16/2016 None Full Exam - General 1994 Constitutional general appearance Overall: well nourished 12/16/2016 None Full Exam - General 1994 Eyes pupils and irises Overall: pupils equal, round, reactive to light and accomodation 12/16/2016 None Full Exam - General 1994 Ears/Nose/Throat otoscopic exam Overall: external auditory canals clear 12/16/2016 None Full Exam - General 1994 Ears/Nose/Throat otoscopic exam Overall: tympanic membranes clear 12/16/2016 None Full Exam - General 1994 Ears/Nose/Throat oral cavity/pharynx/larynx Overall: oral mucosa clear 12/16/2016 None Full Exam - General 1994 Ears/Nose/Throat oral cavity/pharynx/larynx Overall: oropharyngeal mucosa clear 12/16/2016 None Full Exam - General 1994 Ears/Nose/Throat oral cavity/pharynx/larynx Overall: no masses 12/16/2016 None Full Exam - General 1994 Respiratory auscultation Lower lung field: crackles 12/16/2016 None Full Exam - General 1994 Respiratory respiratory effort/rhythm Overall: no retractions 12/16/2016 None Full Exam - General 1994 Respiratory respiratory effort/rhythm Overall: normal rate 12/16/2016 None Full Exam - General 1994 Cardiovascular extremities Overall: no clubbing 12/16/2016 None Full Exam - General 1994 Cardiovascular auscultation of heart Overall: regular rate 12/16/2016 None Full Exam - General 1994 Cardiovascular auscultation of heart Overall: normal heart sounds 12/16/2016 None Full Exam - General 1994 Cardiovascular auscultation of heart Murmur: previously known murmur changed 12/16/2016 None Full Exam - General 1994 Cardiovascular auscultation of heart Systolic murmur: midsystolic 12/16/2016 None Full Exam - General 1994 Cardiovascular auscultation of heart Systolic murmur grade: III/ 12/16/2016 None Full Exam - General 1994 Abdomen abdominal exam Overall: no tenderness 12/16/2016 None Full Exam - General 1994 Abdomen abdominal exam Overall: normal bowel sounds 12/16/2016 None Full Exam - General 1994 Musculoskeletal head and neck Overall: head atraumatic 12/16/2016 None Full Exam - General 1994 Musculoskeletal head and neck Overall: cervical spine benign 12/16/2016 None Full Exam - General 1994 Neurologic gait Overall: no ataxia, no unsteadiness 12/16/2016 None Full Exam - General 1994 Neurologic cranial nerves Overall: crainial nerves 2 - 12 grossly intact 12/16/2016 None Full Exam - General 1994 Psychiatric orientation/consciousness Overall: oriented to person, place and time 12/16/2016 None Full Exam - General 1994 Psychiatric mood and affect Overall: normal mood and affect 12/16/2016 None Full Exam - General 1994 Psychiatric mood and affect Mood: happy 12/16/2016 None Full Exam - General 1994 Constitutional general appearance Overall: well developed 12/02/2016 None Full Exam - General 1994 Constitutional general appearance Overall: in no acute distress 12/02/2016 None Full Exam - General 1994 Constitutional general appearance Overall: well nourished 12/02/2016 None Full Exam - General 1994 Eyes pupils and irises Overall: pupils equal, round, reactive to light and accomodation 12/02/2016 None Full Exam - General 1994 Ears/Nose/Throat otoscopic exam Overall: external auditory canals clear 12/02/2016 None Full Exam - General 1994 Ears/Nose/Throat otoscopic exam Overall: tympanic membranes clear 12/02/2016 None Full Exam - General 1994 Ears/Nose/Throat oral cavity/pharynx/larynx Overall: oral mucosa clear 12/02/2016 None Full Exam - General 1994 Ears/Nose/Throat oral cavity/pharynx/larynx Overall: oropharyngeal mucosa clear 12/02/2016 None Full Exam - General 1994 Ears/Nose/Throat oral cavity/pharynx/larynx Overall: no masses 12/02/2016 None Full Exam - General 1994 Respiratory respiratory effort/rhythm Overall: no retractions 12/02/2016 None Full Exam - General 1994 Respiratory respiratory effort/rhythm Overall: normal rate 12/02/2016 None Full Exam - General 1994 Cardiovascular extremities Overall: no clubbing 12/02/2016 None Full Exam - General 1994 Cardiovascular auscultation of heart Overall: regular rate 12/02/2016 None Full Exam - General 1994 Cardiovascular auscultation of heart Overall: normal heart sounds 12/02/2016 None Full Exam - General 1994 Cardiovascular auscultation of heart Murmur: previously known murmur changed 12/02/2016 None Full Exam - General 1994 Cardiovascular auscultation of heart Systolic murmur: midsystolic 12/02/2016 None Full Exam - General 1994 Cardiovascular auscultation of heart Systolic murmur grade: III/ 12/02/2016 None Full Exam - General 1994 Abdomen abdominal exam Overall: no tenderness 12/02/2016 None Full Exam - General 1994 Abdomen abdominal exam Overall: normal bowel sounds 12/02/2016 None Full Exam - General 1994 Musculoskeletal head and neck Overall: head atraumatic 12/02/2016 None Full Exam - General 1994 Musculoskeletal head and neck Overall: cervical spine benign 12/02/2016 None Full Exam - General 1994 Neurologic gait Overall: no ataxia, no unsteadiness 12/02/2016 None Full Exam - General 1994 Neurologic cranial nerves Overall: crainial nerves 2 - 12 grossly intact 12/02/2016 None Full Exam - General 1994 Psychiatric orientation/consciousness Overall: oriented to person, place and time 12/02/2016 None Full Exam - General 1994 Psychiatric mood and affect Overall: normal mood and affect 12/02/2016 None Full Exam - General 1994 Psychiatric mood and affect Mood: happy 12/02/2016 None Full Exam - General 1994 Respiratory auscultation Lower lung field: crackles 12/02/2016 None Full Exam - General 1994 Constitutional general appearance Overall: well developed 10/27/2016 None Full Exam - General 1994 Constitutional general appearance Overall: in no acute distress 10/27/2016 None Full Exam - General 1994 Constitutional general appearance Overall: well nourished 10/27/2016 None Full Exam - General 1994 Eyes pupils and irises Overall: pupils equal, round, reactive to light and accomodation 10/27/2016 None Full Exam - General 1994 Ears/Nose/Throat otoscopic exam Overall: external auditory canals clear 10/27/2016 None Full Exam - General 1994 Ears/Nose/Throat otoscopic exam Overall: tympanic membranes clear 10/27/2016 None Full Exam - General 1994 Ears/Nose/Throat oral cavity/pharynx/larynx Overall: oral mucosa clear 10/27/2016 None Full Exam - General 1994 Ears/Nose/Throat oral cavity/pharynx/larynx Overall: oropharyngeal mucosa clear 10/27/2016 None Full Exam - General 1994 Ears/Nose/Throat oral cavity/pharynx/larynx Overall: no masses 10/27/2016 None Full Exam - General 1994 Respiratory auscultation Overall: breath sounds clear bilaterally 10/27/2016 None Full Exam - General 1994 Respiratory respiratory effort/rhythm Overall: no retractions 10/27/2016 None Full Exam - General 1994 Respiratory respiratory effort/rhythm Overall: normal rate 10/27/2016 None Full Exam - General 1994 Cardiovascular extremities Overall: no clubbing 10/27/2016 None Full Exam - General 1994 Cardiovascular auscultation of heart Overall: regular rate 10/27/2016 None Full Exam - General 1994 Cardiovascular auscultation of heart Overall: normal heart sounds 10/27/2016 None Full Exam - General 1994 Cardiovascular auscultation of heart Murmur: previously known murmur changed 10/27/2016 None Full Exam - General 1994 Cardiovascular auscultation of heart Systolic murmur: midsystolic 10/27/2016 None Full Exam - General 1994 Cardiovascular auscultation of heart Systolic murmur grade: III/ 10/27/2016 None Full Exam - General 1994 Abdomen abdominal exam Overall: no tenderness 10/27/2016 None Full Exam - General 1994 Abdomen abdominal exam Overall: normal bowel sounds 10/27/2016 None Full Exam - General 1994 Musculoskeletal head and neck Overall: head atraumatic 10/27/2016 None Full Exam - General 1994 Musculoskeletal head and neck Overall: cervical spine benign 10/27/2016 None Full Exam - General 1994 Neurologic gait Overall: no ataxia, no unsteadiness 10/27/2016 None Full Exam - General 1994 Neurologic cranial nerves Overall: crainial nerves 2 - 12 grossly intact 10/27/2016 None Full Exam - General 1994 Psychiatric orientation/consciousness Overall: oriented to person, place and time 10/27/2016 None Full Exam - General 1994 Psychiatric mood and affect Overall: normal mood and affect 10/27/2016 None Full Exam - General 1994 Psychiatric mood and affect Mood: happy 10/27/2016 None Full Exam - General 1994 Constitutional general appearance Overall: well developed 09/01/2016 None Full Exam - General 1994 Constitutional general appearance Overall: in no acute distress 09/01/2016 None Full Exam - General 1994 Constitutional general appearance Overall: well nourished 09/01/2016 None Full Exam - General 1994 Eyes pupils and irises Overall: pupils equal, round, reactive to light and accomodation 09/01/2016 None Full Exam - General 1994 Ears/Nose/Throat otoscopic exam Overall: external auditory canals clear 09/01/2016 None Full Exam - General 1994 Ears/Nose/Throat otoscopic exam Overall: tympanic membranes clear 09/01/2016 None Full Exam - General 1994 Ears/Nose/Throat oral cavity/pharynx/larynx Overall: oral mucosa clear 09/01/2016 None Full Exam - General 1994 Ears/Nose/Throat oral cavity/pharynx/larynx Overall: oropharyngeal mucosa clear 09/01/2016 None Full Exam - General 1994 Ears/Nose/Throat oral cavity/pharynx/larynx Overall: no masses 09/01/2016 None Full Exam - General 1994 Respiratory auscultation Overall: breath sounds clear bilaterally 09/01/2016 None Full Exam - General 1994 Respiratory respiratory effort/rhythm Overall: no retractions 09/01/2016 None Full Exam - General 1994 Respiratory respiratory effort/rhythm Overall: normal rate 09/01/2016 None Full Exam - General 1994 Cardiovascular extremities Overall: no clubbing 09/01/2016 None Full Exam - General 1994 Cardiovascular auscultation of heart Overall: regular rate 09/01/2016 None Full Exam - General 1994 Cardiovascular auscultation of heart Overall: normal heart sounds 09/01/2016 None Full Exam - General 1994 Cardiovascular auscultation of heart Murmur: previously known murmur changed 09/01/2016 None Full Exam - General 1994 Cardiovascular auscultation of heart Systolic murmur: midsystolic 09/01/2016 None Full Exam - General 1994 Cardiovascular auscultation of heart Systolic murmur grade: III/ 09/01/2016 None Full Exam - General 1994 Abdomen abdominal exam Overall: no tenderness 09/01/2016 None Full Exam - General 1994 Abdomen abdominal exam Overall: normal bowel sounds 09/01/2016 None Full Exam - General 1994 Musculoskeletal head and neck Overall: head atraumatic 09/01/2016 None Full Exam - General 1994 Musculoskeletal head and neck Overall: cervical spine benign 09/01/2016 None Full Exam - General 1994 Neurologic gait Overall: no ataxia, no unsteadiness 09/01/2016 None Full Exam - General 1994 Neurologic cranial nerves Overall: crainial nerves 2 - 12 grossly intact 09/01/2016 None Full Exam - General 1994 Psychiatric orientation/consciousness Overall: oriented to person, place and time 09/01/2016 None Full Exam - General 1994 Psychiatric mood and affect Overall: normal mood and affect 09/01/2016 None Full Exam - General 1994 Psychiatric mood and affect Mood: happy 09/01/2016 None Full Exam - General 1994 Constitutional general appearance Overall: well developed 06/10/2016 None Full Exam - General 1994 Constitutional general appearance Overall: in no acute distress 06/10/2016 None Full Exam - General 1994 Constitutional general appearance Overall: well nourished 06/10/2016 None Full Exam - General 1994 Eyes pupils and irises Overall: pupils equal, round, reactive to light and accomodation 06/10/2016 None Full Exam - General 1994 Ears/Nose/Throat otoscopic exam Overall: external auditory canals clear 06/10/2016 None Full Exam - General 1994 Ears/Nose/Throat otoscopic exam Overall: tympanic membranes clear 06/10/2016 None Full Exam - General 1994 Ears/Nose/Throat oral cavity/pharynx/larynx Overall: oral mucosa clear 06/10/2016 None Full Exam - General 1994 Ears/Nose/Throat oral cavity/pharynx/larynx Overall: oropharyngeal mucosa clear 06/10/2016 None Full Exam - General 1994 Ears/Nose/Throat oral cavity/pharynx/larynx Overall: no masses 06/10/2016 None Full Exam - General 1994 Respiratory auscultation Overall: breath sounds clear bilaterally 06/10/2016 None Full Exam - General 1994 Respiratory respiratory effort/rhythm Overall: no retractions 06/10/2016 None Full Exam - General 1994 Respiratory respiratory effort/rhythm Overall: normal rate 06/10/2016 None Full Exam - General 1994 Cardiovascular extremities Overall: no clubbing 06/10/2016 None Full Exam - General 1994 Cardiovascular auscultation of heart Overall: regular rate 06/10/2016 None Full Exam - General 1994 Cardiovascular auscultation of heart Overall: normal heart sounds 06/10/2016 None Full Exam - General 1994 Cardiovascular auscultation of heart Murmur: previously known murmur changed 06/10/2016 None Full Exam - General 1994 Cardiovascular auscultation of heart Systolic murmur: midsystolic 06/10/2016 None Full Exam - General 1994 Cardiovascular auscultation of heart Systolic murmur grade: III/ 06/10/2016 None Full Exam - General 1994 Abdomen abdominal exam Overall: no tenderness 06/10/2016 None Full Exam - General 1994 Abdomen abdominal exam Overall: normal bowel sounds 06/10/2016 None Full Exam - General 1994 Musculoskeletal head and neck Overall: head atraumatic 06/10/2016 None Full Exam - General 1994 Musculoskeletal head and neck Overall: cervical spine benign 06/10/2016 None Full Exam - General 1994 Neurologic gait Overall: no ataxia, no unsteadiness 06/10/2016 None Full Exam - General 1994 Neurologic cranial nerves Overall: crainial nerves 2 - 12 grossly intact 06/10/2016 None Full Exam - General 1994 Psychiatric orientation/consciousness Overall: oriented to person, place and time 06/10/2016 None Full Exam - General 1994 Psychiatric mood and affect Overall: normal mood and affect 06/10/2016 None Full Exam - General 1994 Psychiatric mood and affect Mood: happy 06/10/2016 None Full Exam - General 1994 Constitutional general appearance Overall: well developed 05/12/2016 None Full Exam - General 1994 Constitutional general appearance Overall: in no acute distress 05/12/2016 None Full Exam - General 1994 Constitutional general appearance Overall: well nourished 05/12/2016 None Full Exam - General 1994 Eyes pupils and irises Overall: pupils equal, round, reactive to light and accomodation 05/12/2016 None Full Exam - General 1994 Ears/Nose/Throat otoscopic exam Overall: external auditory canals clear 05/12/2016 None Full Exam - General 1994 Ears/Nose/Throat otoscopic exam Overall: tympanic membranes clear 05/12/2016 None Full Exam - General 1994 Ears/Nose/Throat oral cavity/pharynx/larynx Overall: oral mucosa clear 05/12/2016 None Full Exam - General 1994 Ears/Nose/Throat oral cavity/pharynx/larynx Overall: oropharyngeal mucosa clear 05/12/2016 None Full Exam - General 1994 Ears/Nose/Throat oral cavity/pharynx/larynx Overall: no masses 05/12/2016 None Full Exam - General 1994 Respiratory auscultation Overall: breath sounds clear bilaterally 05/12/2016 None Full Exam - General 1994 Respiratory respiratory effort/rhythm Overall: no retractions 05/12/2016 None Full Exam - General 1994 Respiratory respiratory effort/rhythm Overall: normal rate 05/12/2016 None Full Exam - General 1994 Cardiovascular extremities Overall: no clubbing 05/12/2016 None Full Exam - General 1994 Cardiovascular auscultation of heart Overall: regular rate 05/12/2016 None Full Exam - General 1994 Cardiovascular auscultation of heart Overall: normal heart sounds 05/12/2016 None Full Exam - General 1994 Cardiovascular auscultation of heart Murmur: previously known murmur changed 05/12/2016 None Full Exam - General 1994 Cardiovascular auscultation of heart Systolic murmur: midsystolic 05/12/2016 None Full Exam - General 1994 Cardiovascular auscultation of heart Systolic murmur grade: III/ 05/12/2016 None Full Exam - General 1994 Abdomen abdominal exam Overall: no tenderness 05/12/2016 None Full Exam - General 1994 Abdomen abdominal exam Overall: normal bowel sounds 05/12/2016 None Full Exam - General 1994 Musculoskeletal head and neck Overall: head atraumatic 05/12/2016 None Full Exam - General 1994 Musculoskeletal head and neck Overall: cervical spine benign 05/12/2016 None Full Exam - General 1994 Neurologic gait Overall: no ataxia, no unsteadiness 05/12/2016 None Full Exam - General 1994 Neurologic cranial nerves Overall: crainial nerves 2 - 12 grossly intact 05/12/2016 None Full Exam - General 1994 Psychiatric orientation/consciousness Overall: oriented to person, place and time 05/12/2016 None Full Exam - General 1994 Psychiatric mood and affect Overall: normal mood and affect 05/12/2016 None Full Exam - General 1994 Psychiatric mood and affect Mood: happy 05/12/2016 None Full Exam - General 1994 Integument inspection of skin Location: left foot 05/12/2016 None Full Exam - General 1994 Integument inspection of skin Consistency: thick 05/12/2016 None Full Exam - General 1994 Constitutional general appearance Overall: well developed 01/07/2016 None Full Exam - General 1994 Constitutional general appearance Overall: in no acute distress 01/07/2016 None Full Exam - General 1994 Constitutional general appearance Overall: well nourished 01/07/2016 None Full Exam - General 1994 Eyes pupils and irises Overall: pupils equal, round, reactive to light and accomodation 01/07/2016 None Full Exam - General 1994 Ears/Nose/Throat otoscopic exam Overall: external auditory canals clear 01/07/2016 None Full Exam - General 1994 Ears/Nose/Throat otoscopic exam Overall: tympanic membranes clear 01/07/2016 None Full Exam - General 1994 Ears/Nose/Throat oral cavity/pharynx/larynx Overall: oral mucosa clear 01/07/2016 None Full Exam - General 1994 Ears/Nose/Throat oral cavity/pharynx/larynx Overall: oropharyngeal mucosa clear 01/07/2016 None Full Exam - General 1994 Ears/Nose/Throat oral cavity/pharynx/larynx Overall: no masses 01/07/2016 None Full Exam - General 1994 Respiratory auscultation Overall: breath sounds clear bilaterally 01/07/2016 None Full Exam - General 1994 Respiratory respiratory effort/rhythm Overall: no retractions 01/07/2016 None Full Exam - General 1994 Respiratory respiratory effort/rhythm Overall: normal rate 01/07/2016 None Full Exam - General 1994 Cardiovascular extremities Overall: no clubbing 01/07/2016 None Full Exam - General 1994 Cardiovascular auscultation of heart Overall: regular rate 01/07/2016 None Full Exam - General 1994 Cardiovascular auscultation of heart Overall: normal heart sounds 01/07/2016 None Full Exam - General 1994 Abdomen abdominal exam Overall: no tenderness 01/07/2016 None Full Exam - General 1994 Abdomen abdominal exam Overall: normal bowel sounds 01/07/2016 None Full Exam - General 1994 Musculoskeletal head and neck Overall: head atraumatic 01/07/2016 None Full Exam - General 1994 Musculoskeletal head and neck Overall: cervical spine benign 01/07/2016 None Full Exam - General 1994 Neurologic gait Overall: no ataxia, no unsteadiness 01/07/2016 None Full Exam - General 1994 Neurologic cranial nerves Overall: crainial nerves 2 - 12 grossly intact 01/07/2016 None Full Exam - General 1994 Psychiatric orientation/consciousness Overall: oriented to person, place and time 01/07/2016 None Full Exam - General 1994 Psychiatric mood and affect Overall: normal mood and affect 01/07/2016 None Full Exam - General 1994 Psychiatric mood and affect Mood: happy 01/07/2016 None Full Exam - General 1994 Cardiovascular auscultation of heart Murmur: previously known murmur changed 01/07/2016 None Full Exam - General 1994 Cardiovascular auscultation of heart Systolic murmur: midsystolic 01/07/2016 None Full Exam - General 1994 Cardiovascular auscultation of heart Systolic murmur grade: III/ 01/07/2016 None Full Exam - General 1994 Constitutional general appearance Overall: well nourished 12/10/2015 None Full Exam - General 1994 Constitutional general appearance Overall: well developed 12/10/2015 None Full Exam - General 1994 Constitutional general appearance Overall: in no acute distress 12/10/2015 None Full Exam - General 1994 Eyes pupils and irises Overall: pupils equal, round, reactive to light and accomodation 12/10/2015 None Full Exam - General 1994 Eyes conjunctiva /eyelids Conjunctiva: subconjunctival hemorrhage 12/10/2015 None Full Exam - General 1994 Eyes conjunctiva /eyelids Eyelid: benign 12/10/2015 None Full Exam - General 1994 Respiratory respiratory effort/rhythm Overall: normal rate 12/10/2015 None Full Exam - General 1994 Respiratory respiratory effort/rhythm Overall: no retractions 12/10/2015 None Full Exam - General 1994 Respiratory auscultation Overall: breath sounds clear bilaterally 12/10/2015 None Full Exam - General 1994 Cardiovascular auscultation of heart Overall: regular rate 12/10/2015 None Full Exam - General 1994 Cardiovascular auscultation of heart Overall: normal heart sounds 12/10/2015 None Full Exam - General 1994 Cardiovascular auscultation of heart Overall: no murmurs 12/10/2015 None Full Exam - General 1994 Cardiovascular extremities Overall: no clubbing 12/10/2015 None Full Exam - General 1994 Integument inspection of skin Overall: no rash, lesions 12/10/2015 None Full Exam - General 1994 Psychiatric orientation/consciousness Overall: oriented to person, place and time 12/10/2015 None Full Exam - General 1994 Psychiatric mood and affect Overall: normal mood and affect 12/10/2015 None Full Exam - General 1994 Psychiatric appearance Overall: well-groomed, good eye contact 12/10/2015 None Full Exam - General 1994 Abdomen abdominal exam Overall: no tenderness 12/10/2015 None Full Exam - General 1994 Abdomen abdominal exam Overall: normal bowel sounds 12/10/2015 None Full Exam - General 1994 Constitutional general appearance Overall: well nourished 12/03/2015 None Full Exam - General 1994 Constitutional general appearance Overall: well developed 12/03/2015 None Full Exam - General 1994 Constitutional general appearance Overall: in no acute distress 12/03/2015 None Full Exam - General 1994 Constitutional general appearance Assistive Device: cane 12/03/2015 None Full Exam - General 1994 Eyes conjunctiva /eyelids Conjunctiva: erythema 12/03/2015 None Full Exam - General 1994 Eyes conjunctiva /eyelids Eyelid: benign 12/03/2015 None Full Exam - General 1994 Eyes conjunctiva /eyelids Conjunctiva: subconjunctival hemorrhage 12/03/2015 None Full Exam - General 1994 Eyes pupils and irises Overall: pupils equal, round, reactive to light and accomodation 12/03/2015 None Full Exam - General 1994 Ears/Nose/Throat oral cavity/pharynx/larynx Overall: oropharyngeal mucosa clear 12/03/2015 None Full Exam - General 1994 Ears/Nose/Throat oral cavity/pharynx/larynx Overall: no masses 12/03/2015 None Full Exam - General 1994 Ears/Nose/Throat oral cavity/pharynx/larynx Overall: oral mucosa clear 12/03/2015 None Full Exam - General 1994 Ears/Nose/Throat lips/teeth/gingiva Overall: benign gingiva 12/03/2015 None Full Exam - General 1994 Ears/Nose/Throat lips/teeth/gingiva Overall: no masses 12/03/2015 None Full Exam - General 1994 Ears/Nose/Throat lips/teeth/gingiva Overall: normal dentition 12/03/2015 None Full Exam - General 1994 Ears/Nose/Throat lips/teeth/gingiva Overall: benign lips 12/03/2015 None Full Exam - General 1994 Ears/Nose/Throat otoscopic exam Overall: tympanic membranes clear 12/03/2015 None Full Exam - General 1994 Ears/Nose/Throat otoscopic exam Overall: external auditory canals clear 12/03/2015 None Full Exam - General 1994 Ears/Nose/Throat internal nose Drainage: bloody 12/03/2015 None Full Exam - General 1994 Respiratory respiratory effort/rhythm Overall: normal rate 12/03/2015 None Full Exam - General 1994 Respiratory respiratory effort/rhythm Overall: no retractions 12/03/2015 None Full Exam - General 1994 Respiratory auscultation Overall: breath sounds clear bilaterally 12/03/2015 None Full Exam - General 1994 Cardiovascular extremities Overall: no clubbing 12/03/2015 None Full Exam - General 1994 Cardiovascular auscultation of heart Overall: regular rate 12/03/2015 None Full Exam - General 1994 Cardiovascular auscultation of heart Overall: normal heart sounds 12/03/2015 None Full Exam - General 1994 Integument inspection of skin Overall: no rash, lesions 12/03/2015 None Full Exam - General 1994 Musculoskeletal gait and station Overall: normal station 12/03/2015 None Full Exam - General 1994 Musculoskeletal gait and station Overall: normal gait 12/03/2015 None Full Exam - General 1994 Psychiatric orientation/consciousness Overall: oriented to person, place and time 12/03/2015 None Full Exam - General 1994 Psychiatric mood and affect Overall: normal mood and affect 12/03/2015 None Full Exam - General 1994 Psychiatric appearance Overall: well-groomed, good eye contact 12/03/2015 None Full Exam - General 1994 Abdomen abdominal exam Overall: no tenderness 12/03/2015 None Full Exam - General 1994 Abdomen abdominal exam Overall: normal bowel sounds 12/03/2015 None Full Exam - General 1994 Cardiovascular auscultation of heart Murmur: previously known murmur unchanged 12/03/2015 None Full Exam - General 1994 Cardiovascular auscultation of heart Systolic murmur: holosystolic 12/03/2015 None Full Exam - General 1994 Cardiovascular auscultation of heart Systolic murmur grade: II/ 12/03/2015 None Full Exam - General 1994 Constitutional general appearance Overall: well developed 10/01/2015 None Full Exam - General 1994 Constitutional general appearance Overall: in no acute distress 10/01/2015 None Full Exam - General 1994 Constitutional general appearance Overall: well nourished 10/01/2015 None Full Exam - General 1994 Eyes pupils and irises Overall: pupils equal, round, reactive to light and accomodation 10/01/2015 None Full Exam - General 1994 Ears/Nose/Throat otoscopic exam Overall: external auditory canals clear 10/01/2015 None Full Exam - General 1994 Ears/Nose/Throat otoscopic exam Overall: tympanic membranes clear 10/01/2015 None Full Exam - General 1994 Ears/Nose/Throat oral cavity/pharynx/larynx Overall: oral mucosa clear 10/01/2015 None Full Exam - General 1994 Ears/Nose/Throat oral cavity/pharynx/larynx Overall: oropharyngeal mucosa clear 10/01/2015 None Full Exam - General 1994 Ears/Nose/Throat oral cavity/pharynx/larynx Overall: no masses 10/01/2015 None Full Exam - General 1994 Respiratory auscultation Overall: breath sounds clear bilaterally 10/01/2015 None Full Exam - General 1994 Respiratory respiratory effort/rhythm Overall: no retractions 10/01/2015 None Full Exam - General 1994 Respiratory respiratory effort/rhythm Overall: normal rate 10/01/2015 None Full Exam - General 1994 Cardiovascular extremities Overall: no clubbing 10/01/2015 None Full Exam - General 1994 Cardiovascular extremities Edema present: pitting 10/01/2015 bilateral ankles Full Exam - General 1994 Cardiovascular auscultation of heart Overall: regular rate 10/01/2015 None Full Exam - General 1994 Cardiovascular auscultation of heart Overall: normal heart sounds 10/01/2015 None Full Exam - General 1994 Abdomen abdominal exam Overall: no tenderness 10/01/2015 None Full Exam - General 1994 Abdomen abdominal exam Overall: normal bowel sounds 10/01/2015 None Full Exam - General 1994 Musculoskeletal head and neck Overall: head atraumatic 10/01/2015 None Full Exam - General 1994 Musculoskeletal head and neck Overall: cervical spine benign 10/01/2015 None Full Exam - General 1994 Neurologic gait Overall: no ataxia, no unsteadiness 10/01/2015 None Full Exam - General 1994 Neurologic cranial nerves Overall: crainial nerves 2 - 12 grossly intact 10/01/2015 None Full Exam - General 1994 Psychiatric orientation/consciousness Overall: oriented to person, place and time 10/01/2015 None Full Exam - General 1994 Psychiatric mood and affect Overall: normal mood and affect 10/01/2015 None Full Exam - General 1994 Psychiatric mood and affect Mood: happy 10/01/2015 None Full Exam - General 1994 Constitutional general appearance Overall: well developed 07/23/2015 None Full Exam - General 1994 Constitutional general appearance Overall: in no acute distress 07/23/2015 None Full Exam - General 1994 Constitutional general appearance Overall: well nourished 07/23/2015 None Full Exam - General 1994 Eyes pupils and irises Overall: pupils equal, round, reactive to light and accomodation 07/23/2015 None Full Exam - General 1994 Ears/Nose/Throat otoscopic exam Overall: external auditory canals clear 07/23/2015 None Full Exam - General 1994 Ears/Nose/Throat otoscopic exam Overall: tympanic membranes clear 07/23/2015 None Full Exam - General 1994 Ears/Nose/Throat oral cavity/pharynx/larynx Overall: oral mucosa clear 07/23/2015 None Full Exam - General 1994 Ears/Nose/Throat oral cavity/pharynx/larynx Overall: oropharyngeal mucosa clear 07/23/2015 None Full Exam - General 1994 Ears/Nose/Throat oral cavity/pharynx/larynx Overall: no masses 07/23/2015 None Full Exam - General 1994 Respiratory auscultation Overall: breath sounds clear bilaterally 07/23/2015 None Full Exam - General 1994 Respiratory respiratory effort/rhythm Overall: no retractions 07/23/2015 None Full Exam - General 1994 Respiratory respiratory effort/rhythm Overall: normal rate 07/23/2015 None Full Exam - General 1994 Cardiovascular extremities Overall: no clubbing 07/23/2015 None Full Exam - General 1994 Cardiovascular extremities Edema present: pitting 07/23/2015 bilateral ankles Full Exam - General 1994 Cardiovascular auscultation of heart Overall: regular rate 07/23/2015 None Full Exam - General 1994 Cardiovascular auscultation of heart Overall: normal heart sounds 07/23/2015 None Full Exam - General 1994 Abdomen abdominal exam Overall: no tenderness 07/23/2015 None Full Exam - General 1994 Abdomen abdominal exam Overall: normal bowel sounds 07/23/2015 None Full Exam - General 1994 Musculoskeletal head and neck Overall: head atraumatic 07/23/2015 None Full Exam - General 1994 Musculoskeletal head and neck Overall: cervical spine benign 07/23/2015 None Full Exam - General 1994 Neurologic gait Overall: no ataxia, no unsteadiness 07/23/2015 None Full Exam - General 1994 Neurologic cranial nerves Overall: crainial nerves 2 - 12 grossly intact 07/23/2015 None Full Exam - General 1994 Psychiatric orientation/consciousness Overall: oriented to person, place and time 07/23/2015 None Full Exam - General 1994 Psychiatric mood and affect Overall: normal mood and affect 07/23/2015 None Full Exam - General 1994 Psychiatric mood and affect Mood: happy 07/23/2015 None Full Exam - General 1994 Constitutional general appearance Overall: well developed 06/04/2015 None Full Exam - General 1994 Constitutional general appearance Overall: in no acute distress 06/04/2015 None Full Exam - General 1994 Constitutional general appearance Overall: well nourished 06/04/2015 None Full Exam - General 1994 Eyes pupils and irises Overall: pupils equal, round, reactive to light and accomodation 06/04/2015 None Full Exam - General 1994 Respiratory auscultation Overall: breath sounds clear bilaterally 06/04/2015 None Full Exam - General 1994 Respiratory respiratory effort/rhythm Overall: no retractions 06/04/2015 None Full Exam - General 1994 Respiratory respiratory effort/rhythm Overall: normal rate 06/04/2015 None Full Exam - General 1994 Cardiovascular extremities Overall: no clubbing 06/04/2015 None Full Exam - General 1994 Cardiovascular extremities Edema present: pitting 06/04/2015 bilateral ankles Full Exam - General 1994 Cardiovascular auscultation of heart Overall: regular rate 06/04/2015 None Full Exam - General 1994 Cardiovascular auscultation of heart Overall: normal heart sounds 06/04/2015 None Full Exam - General 1994 Musculoskeletal upper extremity Inspection - upper arm: nodule 06/04/2015 from bruised region Full Exam - General 1994 Musculoskeletal spine, ribs and pelvis Ribs: normal chest expansion 06/04/2015 tender to palpation left upper anterior chest wall Full Exam - General 1994 Musculoskeletal spine, ribs and pelvis Inspection: a normal exam 06/04/2015 None Full Exam - General 1994 Musculoskeletal spine, ribs and pelvis Palpation: a normal exam 06/04/2015 None Full Exam - General 1994 Musculoskeletal spine, ribs and pelvis ROM: a normal exam 06/04/2015 None Full Exam - General 1994 Musculoskeletal head and neck Overall: head atraumatic 06/04/2015 None Full Exam - General 1994 Musculoskeletal head and neck Overall: cervical spine benign 06/04/2015 None Full Exam - General 1994 Integument inspection of skin Location: chest 06/04/2015 left breast - 1.5 x 1 cm dark center to skin lesion - with slightly raised border. Full Exam - General 1994 Neurologic gait Overall: no ataxia, no unsteadiness 06/04/2015 None Full Exam - General 1994 Neurologic cranial nerves Overall: crainial nerves 2 - 12 grossly intact 06/04/2015 None Full Exam - General 1994 Psychiatric orientation/consciousness Overall: oriented to person, place and time 06/04/2015 None Full Exam - General 1994 Psychiatric mood and affect Overall: normal mood and affect 06/04/2015 None Full Exam - General 1994 Psychiatric mood and affect Mood: happy 06/04/2015 None Full Exam - General 1994 Ears/Nose/Throat oral cavity/pharynx/larynx Overall: oropharyngeal mucosa clear 06/04/2015 None Full Exam - General 1994 Ears/Nose/Throat oral cavity/pharynx/larynx Overall: no masses 06/04/2015 None Full Exam - General 1994 Ears/Nose/Throat oral cavity/pharynx/larynx Overall: oral mucosa clear 06/04/2015 None Full Exam - General 1994 Ears/Nose/Throat otoscopic exam Overall: tympanic membranes clear 06/04/2015 None Full Exam - General 1994 Ears/Nose/Throat otoscopic exam Overall: external auditory canals clear 06/04/2015 None Full Exam - General 1994 Abdomen abdominal exam Overall: no tenderness 06/04/2015 None Full Exam - General 1994 Abdomen abdominal exam Overall: normal bowel sounds 06/04/2015 None Full Exam - General 1994 Constitutional general appearance Overall: well developed 01/12/2015 None Full Exam - General 1994 Constitutional general appearance Overall: in no acute distress 01/12/2015 None Full Exam - General 1994 Constitutional general appearance Overall: well nourished 01/12/2015 None Full Exam - General 1994 Eyes pupils and irises Overall: pupils equal, round, reactive to light and accomodation 01/12/2015 None Full Exam - General 1994 Respiratory auscultation Overall: breath sounds clear bilaterally 01/12/2015 None Full Exam - General 1994 Respiratory respiratory effort/rhythm Overall: no retractions 01/12/2015 None Full Exam - General 1994 Respiratory respiratory effort/rhythm Overall: normal rate 01/12/2015 None Full Exam - General 1994 Cardiovascular extremities Overall: no clubbing 01/12/2015 None Full Exam - General 1994 Cardiovascular extremities Edema present: pitting 01/12/2015 bilateral ankles Full Exam - General 1994 Cardiovascular auscultation of heart Overall: regular rate 01/12/2015 None Full Exam - General 1994 Cardiovascular auscultation of heart Overall: normal heart sounds 01/12/2015 None Full Exam - General 1994 Musculoskeletal upper extremity Inspection - upper arm: nodule 01/12/2015 from bruised region Full Exam - General 1994 Musculoskeletal spine, ribs and pelvis Ribs: normal chest expansion 01/12/2015 tender to palpation left upper anterior chest wall Full Exam - General 1994 Musculoskeletal spine, ribs and pelvis Inspection: a normal exam 01/12/2015 None Full Exam - General 1994 Musculoskeletal spine, ribs and pelvis Palpation: a normal exam 01/12/2015 None Full Exam - General 1994 Musculoskeletal spine, ribs and pelvis ROM: a normal exam 01/12/2015 None Full Exam - General 1994 Musculoskeletal head and neck Overall: head atraumatic 01/12/2015 None Full Exam - General 1994 Musculoskeletal head and neck Overall: cervical spine benign 01/12/2015 None Full Exam - General 1994 Integument inspection of skin Location: chest 01/12/2015 left breast - 1.5 x 1 cm dark center to skin lesion - with slightly raised border. Full Exam - General 1994 Neurologic gait Overall: no ataxia, no unsteadiness 01/12/2015 None Full Exam - General 1994 Neurologic cranial nerves Overall: crainial nerves 2 - 12 grossly intact 01/12/2015 None Full Exam - General 1994 Psychiatric orientation/consciousness Overall: oriented to person, place and time 01/12/2015 None Full Exam - General 1994 Psychiatric mood and affect Overall: normal mood and affect 01/12/2015 None Full Exam - General 1994 Psychiatric mood and affect Mood: happy 01/12/2015 None Full Exam - General 1994 Constitutional general appearance Overall: well developed 01/02/2015 None Full Exam - General 1994 Constitutional general appearance Overall: in no acute distress 01/02/2015 None Full Exam - General 1994 Constitutional general appearance Overall: well nourished 01/02/2015 None Full Exam - General 1994 Eyes pupils and irises Overall: pupils equal, round, reactive to light and accomodation 01/02/2015 None Full Exam - General 1994 Respiratory auscultation Overall: breath sounds clear bilaterally 01/02/2015 None Full Exam - General 1994 Respiratory respiratory effort/rhythm Overall: no retractions 01/02/2015 None Full Exam - General 1994 Respiratory respiratory effort/rhythm Overall: normal rate 01/02/2015 None Full Exam - General 1994 Cardiovascular extremities Overall: no clubbing 01/02/2015 None Full Exam - General 1994 Cardiovascular extremities Edema present: pitting 01/02/2015 bilateral ankles Full Exam - General 1994 Cardiovascular auscultation of heart Overall: regular rate 01/02/2015 None Full Exam - General 1994 Cardiovascular auscultation of heart Overall: normal heart sounds 01/02/2015 None Full Exam - General 1994 Musculoskeletal upper extremity Inspection - upper arm: nodule 01/02/2015 from bruised region Full Exam - General 1994 Musculoskeletal head and neck Overall: head atraumatic 01/02/2015 None Full Exam - General 1994 Musculoskeletal head and neck Overall: cervical spine benign 01/02/2015 None Full Exam - General 1994 Integument inspection of skin Location: chest 01/02/2015 left breast - 1.5 x 1 cm dark center to skin lesion - with slightly raised border. Full Exam - General 1994 Neurologic gait Overall: no ataxia, no unsteadiness 01/02/2015 None Full Exam - General 1994 Neurologic cranial nerves Overall: crainial nerves 2 - 12 grossly intact 01/02/2015 None Full Exam - General 1994 Psychiatric orientation/consciousness Overall: oriented to person, place and time 01/02/2015 None Full Exam - General 1994 Psychiatric mood and affect Overall: normal mood and affect 01/02/2015 None Full Exam - General 1994 Psychiatric mood and affect Mood: happy 01/02/2015 None Full Exam - General 1994 Musculoskeletal spine, ribs and pelvis Inspection: a normal exam 01/02/2015 None Full Exam - General 1994 Musculoskeletal spine, ribs and pelvis Palpation: a normal exam 01/02/2015 None Full Exam - General 1994 Musculoskeletal spine, ribs and pelvis ROM: a normal exam 01/02/2015 None Full Exam - General 1994 Musculoskeletal spine, ribs and pelvis Ribs: normal chest expansion 01/02/2015 tender to palpation left upper anterior chest wall Full Exam - General 1994 Constitutional general appearance Overall: well developed 12/30/2014 None Full Exam - General 1994 Constitutional general appearance Overall: in no acute distress 12/30/2014 None Full Exam - General 1994 Constitutional general appearance Overall: well nourished 12/30/2014 None Full Exam - General 1994 Eyes pupils and irises Overall: pupils equal, round, reactive to light and accomodation 12/30/2014 None Full Exam - General 1994 Respiratory auscultation Overall: breath sounds clear bilaterally 12/30/2014 None Full Exam - General 1994 Respiratory respiratory effort/rhythm Overall: no retractions 12/30/2014 None Full Exam - General 1994 Respiratory respiratory effort/rhythm Overall: normal rate 12/30/2014 None Full Exam - General 1994 Cardiovascular extremities Overall: no clubbing 12/30/2014 None Full Exam - General 1994 Cardiovascular extremities Edema present: pitting 12/30/2014 bilateral ankles Full Exam - General 1994 Cardiovascular auscultation of heart Overall: regular rate 12/30/2014 None Full Exam - General 1994 Cardiovascular auscultation of heart Overall: normal heart sounds 12/30/2014 None Full Exam - General 1994 Musculoskeletal head and neck Overall: head atraumatic 12/30/2014 None Full Exam - General 1994 Musculoskeletal head and neck Overall: cervical spine benign 12/30/2014 None Full Exam - General 1994 Neurologic gait Overall: no ataxia, no unsteadiness 12/30/2014 None Full Exam - General 1994 Neurologic cranial nerves Overall: crainial nerves 2 - 12 grossly intact 12/30/2014 None Full Exam - General 1994 Psychiatric orientation/consciousness Overall: oriented to person, place and time 12/30/2014 None Full Exam - General 1994 Psychiatric mood and affect Overall: normal mood and affect 12/30/2014 None Full Exam - General 1994 Psychiatric mood and affect Mood: happy 12/30/2014 None Full Exam - General 1994 Integument inspection of skin Location: chest 12/30/2014 left breast - 1.5 x 1 cm dark center to skin lesion - with slightly raised border. Full Exam - General 1994 Musculoskeletal upper extremity Inspection - upper arm: nodule 12/30/2014 from bruised region Full Exam - General 1994 Constitutional general appearance Overall: well developed 12/08/2014 None Full Exam - General 1994 Constitutional general appearance Overall: in no acute distress 12/08/2014 None Full Exam - General 1994 Constitutional general appearance Overall: well nourished 12/08/2014 None Full Exam - General 1994 Eyes pupils and irises Overall: pupils equal, round, reactive to light and accomodation 12/08/2014 None Full Exam - General 1994 Ears/Nose/Throat otoscopic exam Overall: external auditory canals clear 12/08/2014 None Full Exam - General 1994 Ears/Nose/Throat otoscopic exam Overall: tympanic membranes clear 12/08/2014 None Full Exam - General 1994 Ears/Nose/Throat oral cavity/pharynx/larynx Overall: oral mucosa clear 12/08/2014 None Full Exam - General 1994 Ears/Nose/Throat oral cavity/pharynx/larynx Overall: oropharyngeal mucosa clear 12/08/2014 None Full Exam - General 1994 Ears/Nose/Throat oral cavity/pharynx/larynx Overall: no masses 12/08/2014 None Full Exam - General 1994 Respiratory auscultation Overall: breath sounds clear bilaterally 12/08/2014 None Full Exam - General 1994 Respiratory respiratory effort/rhythm Overall: no retractions 12/08/2014 None Full Exam - General 1994 Respiratory respiratory effort/rhythm Overall: normal rate 12/08/2014 None Full Exam - General 1994 Cardiovascular extremities Overall: no clubbing 12/08/2014 None Full Exam - General 1994 Cardiovascular extremities Edema present: pitting 12/08/2014 bilateral ankles Full Exam - General 1994 Cardiovascular auscultation of heart Overall: regular rate 12/08/2014 None Full Exam - General 1994 Cardiovascular auscultation of heart Overall: normal heart sounds 12/08/2014 None Full Exam - General 1994 Abdomen abdominal exam Overall: no tenderness 12/08/2014 None Full Exam - General 1994 Abdomen abdominal exam Overall: normal bowel sounds 12/08/2014 None Full Exam - General 1994 Musculoskeletal head and neck Overall: head atraumatic 12/08/2014 None Full Exam - General 1994 Musculoskeletal head and neck Overall: cervical spine benign 12/08/2014 None Full Exam - General 1994 Neurologic gait Overall: no ataxia, no unsteadiness 12/08/2014 None Full Exam - General 1994 Neurologic cranial nerves Overall: crainial nerves 2 - 12 grossly intact 12/08/2014 None Full Exam - General 1994 Psychiatric orientation/consciousness Overall: oriented to person, place and time 12/08/2014 None Full Exam - General 1994 Psychiatric mood and affect Overall: normal mood and affect 12/08/2014 None Full Exam - General 1994 Psychiatric mood and affect Mood: happy 12/08/2014 None Full Exam - General 1994 Constitutional general appearance Overall: well developed 09/08/2014 None Full Exam - General 1994 Constitutional general appearance Overall: in no acute distress 09/08/2014 None Full Exam - General 1994 Constitutional general appearance Overall: well nourished 09/08/2014 None Full Exam - General 1994 Eyes pupils and irises Overall: pupils equal, round, reactive to light and accomodation 09/08/2014 None Full Exam - General 1994 Ears/Nose/Throat otoscopic exam Overall: external auditory canals clear 09/08/2014 None Full Exam - General 1994 Ears/Nose/Throat otoscopic exam Overall: tympanic membranes clear 09/08/2014 None Full Exam - General 1994 Ears/Nose/Throat oral cavity/pharynx/larynx Overall: oral mucosa clear 09/08/2014 None Full Exam - General 1994 Ears/Nose/Throat oral cavity/pharynx/larynx Overall: oropharyngeal mucosa clear 09/08/2014 None Full Exam - General 1994 Ears/Nose/Throat oral cavity/pharynx/larynx Overall: no masses 09/08/2014 None Full Exam - General 1994 Respiratory auscultation Overall: breath sounds clear bilaterally 09/08/2014 None Full Exam - General 1994 Respiratory respiratory effort/rhythm Overall: no retractions 09/08/2014 None Full Exam - General 1994 Respiratory respiratory effort/rhythm Overall: normal rate 09/08/2014 None Full Exam - General 1994 Cardiovascular extremities Overall: no clubbing 09/08/2014 None Full Exam - General 1994 Cardiovascular extremities Edema present: pitting 09/08/2014 bilateral ankles Full Exam - General 1994 Cardiovascular auscultation of heart Overall: regular rate 09/08/2014 None Full Exam - General 1994 Cardiovascular auscultation of heart Overall: normal heart sounds 09/08/2014 None Full Exam - General 1994 Abdomen abdominal exam Overall: no tenderness 09/08/2014 None Full Exam - General 1994 Abdomen abdominal exam Overall: normal bowel sounds 09/08/2014 None Full Exam - General 1994 Musculoskeletal head and neck Overall: head atraumatic 09/08/2014 None Full Exam - General 1994 Musculoskeletal head and neck Overall: cervical spine benign 09/08/2014 None Full Exam - General 1994 Neurologic gait Overall: no ataxia, no unsteadiness 09/08/2014 None Full Exam - General 1994 Neurologic cranial nerves Overall: crainial nerves 2 - 12 grossly intact 09/08/2014 None Full Exam - General 1994 Psychiatric orientation/consciousness Overall: oriented to person, place and time 09/08/2014 None Full Exam - General 1994 Psychiatric mood and affect Overall: normal mood and affect 09/08/2014 None Full Exam - General 1994 Psychiatric mood and affect Mood: happy 09/08/2014 None Full Exam - General 1994 Constitutional general appearance Overall: well developed 06/09/2014 None Full Exam - General 1994 Constitutional general appearance Overall: in no acute distress 06/09/2014 None Full Exam - General 1994 Constitutional general appearance Overall: well nourished 06/09/2014 None Full Exam - General 1994 Eyes pupils and irises Overall: pupils equal, round, reactive to light and accomodation 06/09/2014 None Full Exam - General 1994 Ears/Nose/Throat otoscopic exam Overall: external auditory canals clear 06/09/2014 None Full Exam - General 1994 Ears/Nose/Throat otoscopic exam Overall: tympanic membranes clear 06/09/2014 None Full Exam - General 1994 Ears/Nose/Throat oral cavity/pharynx/larynx Overall: oral mucosa clear 06/09/2014 None Full Exam - General 1994 Ears/Nose/Throat oral cavity/pharynx/larynx Overall: oropharyngeal mucosa clear 06/09/2014 None Full Exam - General 1994 Ears/Nose/Throat oral cavity/pharynx/larynx Overall: no masses 06/09/2014 None Full Exam - General 1994 Respiratory auscultation Overall: breath sounds clear bilaterally 06/09/2014 None Full Exam - General 1994 Respiratory respiratory effort/rhythm Overall: no retractions 06/09/2014 None Full Exam - General 1994 Respiratory respiratory effort/rhythm Overall: normal rate 06/09/2014 None Full Exam - General 1994 Cardiovascular extremities Overall: no clubbing 06/09/2014 None Full Exam - General 1994 Cardiovascular extremities Edema present: pitting 06/09/2014 bilateral ankles Full Exam - General 1994 Cardiovascular auscultation of heart Overall: regular rate 06/09/2014 None Full Exam - General 1994 Cardiovascular auscultation of heart Overall: normal heart sounds 06/09/2014 None Full Exam - General 1994 Abdomen abdominal exam Overall: no tenderness 06/09/2014 None Full Exam - General 1994 Abdomen abdominal exam Overall: normal bowel sounds 06/09/2014 None Full Exam - General 1994 Musculoskeletal head and neck Overall: head atraumatic 06/09/2014 None Full Exam - General 1994 Musculoskeletal head and neck Overall: cervical spine benign 06/09/2014 None Full Exam - General 1994 Neurologic gait Overall: no ataxia, no unsteadiness 06/09/2014 None Full Exam - General 1994 Neurologic cranial nerves Overall: crainial nerves 2 - 12 grossly intact 06/09/2014 None Full Exam - General 1994 Psychiatric orientation/consciousness Overall: oriented to person, place and time 06/09/2014 None Full Exam - General 1994 Psychiatric mood and affect Overall: normal mood and affect 06/09/2014 None Full Exam - General 1994 Psychiatric mood and affect Mood: happy 06/09/2014 None Full Exam - General 1994 Constitutional general appearance Overall: well developed 04/28/2014 None Full Exam - General 1994 Constitutional general appearance Overall: in no acute distress 04/28/2014 None Full Exam - General 1994 Constitutional general appearance Overall: well nourished 04/28/2014 None Full Exam - General 1994 Eyes pupils and irises Overall: pupils equal, round, reactive to light and accomodation 04/28/2014 None Full Exam - General 1994 Ears/Nose/Throat otoscopic exam Overall: external auditory canals clear 04/28/2014 None Full Exam - General 1994 Ears/Nose/Throat otoscopic exam Overall: tympanic membranes clear 04/28/2014 None Full Exam - General 1994 Ears/Nose/Throat oral cavity/pharynx/larynx Overall: oral mucosa clear 04/28/2014 None Full Exam - General 1995 Ears/Nose/Throat oral cavity/pharynx/larynx Overall: oropharyngeal mucosa clear 04/28/2014 None Full Exam - General 1994 Ears/Nose/Throat oral cavity/pharynx/larynx Overall: no masses 04/28/2014 None Full Exam - General 1994 Respiratory auscultation Overall: breath sounds clear bilaterally 04/28/2014 None Full Exam - General 1994 Respiratory respiratory effort/rhythm Overall: no retractions 04/28/2014 None Full Exam - General 1994 Respiratory respiratory effort/rhythm Overall: normal rate 04/28/2014 None Full Exam - General 1994 Cardiovascular extremities Overall: no clubbing 04/28/2014 None Full Exam - General 1994 Cardiovascular auscultation of heart Overall: regular rate 04/28/2014 None Full Exam - General 1994 Cardiovascular auscultation of heart Overall: normal heart sounds 04/28/2014 None Full Exam - General 1994 Abdomen abdominal exam Overall: no tenderness 04/28/2014 None Full Exam - General 1994 Abdomen abdominal exam Overall: normal bowel sounds 04/28/2014 None Full Exam - General 1994 Musculoskeletal head and neck Overall: head atraumatic 04/28/2014 None Full Exam - General 1994 Musculoskeletal head and neck Overall: cervical spine benign 04/28/2014 None Full Exam - General 1994 Neurologic gait Overall: no ataxia, no unsteadiness 04/28/2014 None Full Exam - General 1994 Neurologic cranial nerves Overall: crainial nerves 2 - 12 grossly intact 04/28/2014 None Full Exam - General 1994 Psychiatric orientation/consciousness Overall: oriented to person, place and time 04/28/2014 None Full Exam - General 1994 Psychiatric mood and affect Overall: normal mood and affect 04/28/2014 None Full Exam - General 1994 Psychiatric mood and affect Mood: happy 04/28/2014 None Full Exam - General 1994 Cardiovascular extremities Edema present: pitting 04/28/2014 bilateral ankles Full Exam - General 1994 Constitutional general appearance Overall: well developed 03/26/2014 None Full Exam - General 1994 Constitutional general appearance Overall: in no acute distress 03/26/2014 None Full Exam - General 1994 Constitutional general appearance Overall: well nourished 03/26/2014 None Full Exam - General 1994 Eyes pupils and irises Overall: pupils equal, round, reactive to light and accomodation 03/26/2014 None Full Exam - General 1994 Ears/Nose/Throat otoscopic exam Overall: external auditory canals clear 03/26/2014 None Full Exam - General 1994 Ears/Nose/Throat otoscopic exam Overall: tympanic membranes clear 03/26/2014 None Full Exam - General 1994 Ears/Nose/Throat oral cavity/pharynx/larynx Overall: oral mucosa clear 03/26/2014 None Full Exam - General 1994 Ears/Nose/Throat oral cavity/pharynx/larynx Overall: oropharyngeal mucosa clear 03/26/2014 None Full Exam - General 1994 Ears/Nose/Throat oral cavity/pharynx/larynx Overall: no masses 03/26/2014 None Full Exam - General 1994 Respiratory auscultation Overall: breath sounds clear bilaterally 03/26/2014 None Full Exam - General 1994 Respiratory respiratory effort/rhythm Overall: no retractions 03/26/2014 None Full Exam - General 1994 Respiratory respiratory effort/rhythm Overall: normal rate 03/26/2014 None Full Exam - General 1994 Cardiovascular extremities Overall: no clubbing 03/26/2014 None Full Exam - General 1994 Cardiovascular auscultation of heart Overall: regular rate 03/26/2014 None Full Exam - General 1994 Cardiovascular auscultation of heart Overall: normal heart sounds 03/26/2014 None Full Exam - General 1994 Abdomen abdominal exam Overall: no tenderness 03/26/2014 None Full Exam - General 1994 Abdomen abdominal exam Overall: normal bowel sounds 03/26/2014 None Full Exam - General 1994 Musculoskeletal head and neck Overall: head atraumatic 03/26/2014 None Full Exam - General 1994 Musculoskeletal head and neck Overall: cervical spine benign 03/26/2014 None Full Exam - General 1994 Neurologic gait Overall: no ataxia, no unsteadiness 03/26/2014 None Full Exam - General 1994 Neurologic cranial nerves Overall: crainial nerves 2 - 12 grossly intact 03/26/2014 None Full Exam - General 1994 Psychiatric orientation/consciousness Overall: oriented to person, place and time 03/26/2014 None Full Exam - General 1994 Psychiatric mood and affect Overall: normal mood and affect 03/26/2014 None Full Exam - General 1994 Psychiatric mood and affect Mood: happy 03/26/2014 None Full Exam - General 1994 Musculoskeletal lower extremity Inspection - thigh: normal appearance 03/26/2014 None Full Exam - General 1994 Musculoskeletal lower extremity Palpation - thigh: tenderness 03/26/2014 at right hip Full Exam - General 1994 Constitutional general appearance Overall: well developed 02/05/2014 None Full Exam - General 1994 Constitutional general appearance Overall: in no acute distress 02/05/2014 None Full Exam - General 1994 Constitutional general appearance Overall: well nourished 02/05/2014 None Full Exam - General 1994 Eyes pupils and irises Overall: pupils equal, round, reactive to light and accomodation 02/05/2014 None Full Exam - General 1994 Ears/Nose/Throat otoscopic exam Overall: external auditory canals clear 02/05/2014 None Full Exam - General 1994 Ears/Nose/Throat otoscopic exam Overall: tympanic membranes clear 02/05/2014 None Full Exam - General 1994 Ears/Nose/Throat oral cavity/pharynx/larynx Overall: oral mucosa clear 02/05/2014 None Full Exam - General 1994 Ears/Nose/Throat oral cavity/pharynx/larynx Overall: oropharyngeal mucosa clear 02/05/2014 None Full Exam - General 1994 Ears/Nose/Throat oral cavity/pharynx/larynx Overall: no masses 02/05/2014 None Full Exam - General 1994 Respiratory auscultation Overall: breath sounds clear bilaterally 02/05/2014 None Full Exam - General 1994 Respiratory respiratory effort/rhythm Overall: no retractions 02/05/2014 None Full Exam - General 1994 Respiratory respiratory effort/rhythm Overall: normal rate 02/05/2014 None Full Exam - General 1994 Cardiovascular extremities Overall: no clubbing 02/05/2014 None Full Exam - General 1994 Cardiovascular auscultation of heart Overall: regular rate 02/05/2014 None Full Exam - General 1994 Cardiovascular auscultation of heart Overall: normal heart sounds 02/05/2014 None Full Exam - General 1994 Abdomen abdominal exam Overall: no tenderness 02/05/2014 None Full Exam - General 1994 Abdomen abdominal exam Overall: normal bowel sounds 02/05/2014 None Full Exam - General 1994 Musculoskeletal head and neck Overall: head atraumatic 02/05/2014 None Full Exam - General 1994 Musculoskeletal head and neck Overall: cervical spine benign 02/05/2014 None Full Exam - General 1994 Neurologic gait Overall: no ataxia, no unsteadiness 02/05/2014 None Full Exam - General 1994 Neurologic cranial nerves Overall: crainial nerves 2 - 12 grossly intact 02/05/2014 None Full Exam - General 1994 Psychiatric orientation/consciousness Overall: oriented to person, place and time 02/05/2014 None Full Exam - General 1994 Psychiatric mood and affect Overall: normal mood and affect 02/05/2014 None Full Exam - General 1994 Psychiatric mood and affect Mood: happy 02/05/2014 None Full Exam - General 1994 Constitutional general appearance Overall: well developed 12/11/2013 None Full Exam - General 1994 Constitutional general appearance Overall: in no acute distress 12/11/2013 None Full Exam - General 1994 Constitutional general appearance Overall: well nourished 12/11/2013 None Full Exam - General 1994 Eyes pupils and irises Overall: pupils equal, round, reactive to light and accomodation 12/11/2013 None Full Exam - General 1994 Ears/Nose/Throat otoscopic exam Overall: external auditory canals clear 12/11/2013 None Full Exam - General 1994 Ears/Nose/Throat otoscopic exam Overall: tympanic membranes clear 12/11/2013 None Full Exam - General 1994 Ears/Nose/Throat oral cavity/pharynx/larynx Overall: oral mucosa clear 12/11/2013 None Full Exam - General 1994 Ears/Nose/Throat oral cavity/pharynx/larynx Overall: oropharyngeal mucosa clear 12/11/2013 None Full Exam - General 1994 Ears/Nose/Throat oral cavity/pharynx/larynx Overall: no masses 12/11/2013 None Full Exam - General 1994 Respiratory auscultation Overall: breath sounds clear bilaterally 12/11/2013 None Full Exam - General 1994 Respiratory respiratory effort/rhythm Overall: no retractions 12/11/2013 None Full Exam - General 1994 Respiratory respiratory effort/rhythm Overall: normal rate 12/11/2013 None Full Exam - General 1994 Cardiovascular extremities Overall: no clubbing 12/11/2013 None Full Exam - General 1994 Cardiovascular auscultation of heart Overall: regular rate 12/11/2013 None Full Exam - General 1994 Cardiovascular auscultation of heart Overall: normal heart sounds 12/11/2013 None Full Exam - General 1994 Abdomen abdominal exam Overall: no tenderness 12/11/2013 None Full Exam - General 1994 Abdomen abdominal exam Overall: normal bowel sounds 12/11/2013 None Full Exam - General 1994 Musculoskeletal head and neck Overall: head atraumatic 12/11/2013 None Full Exam - General 1994 Musculoskeletal head and neck Overall: cervical spine benign 12/11/2013 None Full Exam - General 1994 Neurologic gait Overall: no ataxia, no unsteadiness 12/11/2013 None Full Exam - General 1994 Neurologic cranial nerves Overall: crainial nerves 2 - 12 grossly intact 12/11/2013 None Full Exam - General 1994 Psychiatric orientation/consciousness Overall: oriented to person, place and time 12/11/2013 None Full Exam - General 1994 Psychiatric mood and affect Overall: normal mood and affect 12/11/2013 None Full Exam - General 1994 Psychiatric mood and affect Mood: happy 12/11/2013 None Full Exam - General 1994 Constitutional general appearance Overall: well developed 11/27/2013 None Full Exam - General 1994 Constitutional general appearance Overall: in no acute distress 11/27/2013 None Full Exam - General 1994 Constitutional general appearance Overall: well nourished 11/27/2013 None Full Exam - General 1994 Eyes pupils and irises Overall: pupils equal, round, reactive to light and accomodation 11/27/2013 None Full Exam - General 1994 Ears/Nose/Throat otoscopic exam Overall: external auditory canals clear 11/27/2013 None Full Exam - General 1994 Ears/Nose/Throat otoscopic exam Overall: tympanic membranes clear 11/27/2013 None Full Exam - General 1994 Ears/Nose/Throat oral cavity/pharynx/larynx Overall: oral mucosa clear 11/27/2013 None Full Exam - General 1994 Ears/Nose/Throat oral cavity/pharynx/larynx Overall: oropharyngeal mucosa clear 11/27/2013 None Full Exam - General 1994 Ears/Nose/Throat oral cavity/pharynx/larynx Overall: no masses 11/27/2013 None Full Exam - General 1994 Respiratory auscultation Overall: breath sounds clear bilaterally 11/27/2013 None Full Exam - General 1994 Respiratory respiratory effort/rhythm Overall: no retractions 11/27/2013 None Full Exam - General 1994 Respiratory respiratory effort/rhythm Overall: normal rate 11/27/2013 None Full Exam - General 1994 Cardiovascular extremities Overall: no clubbing 11/27/2013 None Full Exam - General 1994 Cardiovascular auscultation of heart Overall: regular rate 11/27/2013 None Full Exam - General 1994 Cardiovascular auscultation of heart Overall: normal heart sounds 11/27/2013 None Full Exam - General 1994 Abdomen abdominal exam Overall: no tenderness 11/27/2013 None Full Exam - General 1994 Abdomen abdominal exam Overall: normal bowel sounds 11/27/2013 None Full Exam - General 1994 Musculoskeletal head and neck Overall: head atraumatic 11/27/2013 None Full Exam - General 1994 Musculoskeletal head and neck Overall: cervical spine benign 11/27/2013 None Full Exam - General 1994 Neurologic gait Overall: no ataxia, no unsteadiness 11/27/2013 None Full Exam - General 1994 Neurologic cranial nerves Overall: crainial nerves 2 - 12 grossly intact 11/27/2013 None Full Exam - General 1994 Psychiatric orientation/consciousness Overall: oriented to person, place and time 11/27/2013 None Full Exam - General 1994 Psychiatric mood and affect Overall: normal mood and affect 11/27/2013 None Full Exam - General 1994 Psychiatric mood and affect Mood: happy 11/27/2013 None Full Exam - General 1994 Constitutional general appearance Overall: well developed 10/31/2013 None Full Exam - General 1994 Constitutional general appearance Overall: in no acute distress 10/31/2013 None Full Exam - General 1994 Constitutional general appearance Overall: well nourished 10/31/2013 None Full Exam - General 1994 Eyes pupils and irises Overall: pupils equal, round, reactive to light and accomodation 10/31/2013 None Full Exam - General 1994 Ears/Nose/Throat otoscopic exam Overall: external auditory canals clear 10/31/2013 None Full Exam - General 1994 Ears/Nose/Throat otoscopic exam Overall: tympanic membranes clear 10/31/2013 None Full Exam - General 1994 Ears/Nose/Throat oral cavity/pharynx/larynx Overall: oral mucosa clear 10/31/2013 None Full Exam - General 1994 Ears/Nose/Throat oral cavity/pharynx/larynx Overall: oropharyngeal mucosa clear 10/31/2013 None Full Exam - General 1994 Ears/Nose/Throat oral cavity/pharynx/larynx Overall: no masses 10/31/2013 None Full Exam - General 1994 Respiratory auscultation Upper lung field: expiratory wheezes 10/31/2013 None Full Exam - General 1994 Respiratory auscultation Lower lung field: diminished 10/31/2013 None Full Exam - General 1994 Respiratory auscultation Lower lung field: expiratory wheezes 10/31/2013 None Full Exam - General 1994 Respiratory auscultation Basilar: diminished 10/31/2013 None Full Exam - General 1994 Respiratory respiratory effort/rhythm Overall: no retractions 10/31/2013 None Full Exam - General 1994 Respiratory respiratory effort/rhythm Overall: normal rate 10/31/2013 None Full Exam - General 1994 Cardiovascular extremities Overall: no clubbing 10/31/2013 None Full Exam - General 1994 Cardiovascular auscultation of heart Overall: regular rate 10/31/2013 None Full Exam - General 1994 Cardiovascular auscultation of heart Overall: normal heart sounds 10/31/2013 None Full Exam - General 1994 Abdomen abdominal exam Overall: no tenderness 10/31/2013 None Full Exam - General 1994 Abdomen abdominal exam Overall: normal bowel sounds 10/31/2013 None Full Exam - General 1994 Musculoskeletal head and neck Overall: head atraumatic 10/31/2013 None Full Exam - General 1994 Musculoskeletal head and neck Overall: cervical spine benign 10/31/2013 None Full Exam - General 1994 Neurologic gait Overall: no ataxia, no unsteadiness 10/31/2013 None Full Exam - General 1994 Neurologic cranial nerves Overall: crainial nerves 2 - 12 grossly intact 10/31/2013 None Full Exam - General 1994 Psychiatric orientation/consciousness Overall: oriented to person, place and time 10/31/2013 None Full Exam - General 1994 Psychiatric mood and affect Overall: normal mood and affect 10/31/2013 None Full Exam - General 1994 Psychiatric mood and affect Mood: happy 10/31/2013 None Full Exam - General 1994 Constitutional general appearance Overall: well nourished 09/30/2013 None Full Exam - General 1994 Eyes pupils and irises Overall: pupils equal, round, reactive to light and accomodation 09/30/2013 None Full Exam - General 1994 Ears/Nose/Throat otoscopic exam Overall: external auditory canals clear 09/30/2013 None Full Exam - General 1994 Ears/Nose/Throat otoscopic exam Overall: tympanic membranes clear 09/30/2013 None Full Exam - General 1994 Ears/Nose/Throat oral cavity/pharynx/larynx Overall: oral mucosa clear 09/30/2013 None Full Exam - General 1994 Ears/Nose/Throat oral cavity/pharynx/larynx Overall: oropharyngeal mucosa clear 09/30/2013 None Full Exam - General 1994 Ears/Nose/Throat oral cavity/pharynx/larynx Overall: no masses 09/30/2013 None Full Exam - General 1994 Respiratory auscultation Overall: breath sounds clear bilaterally 09/30/2013 None Full Exam - General 1994 Respiratory respiratory effort/rhythm Overall: no retractions 09/30/2013 None Full Exam - General 1994 Respiratory respiratory effort/rhythm Overall: normal rate 09/30/2013 None Full Exam - General 1994 Cardiovascular extremities Overall: no clubbing 09/30/2013 None Full Exam - General 1994 Cardiovascular auscultation of heart Overall: regular rate 09/30/2013 None Full Exam - General 1994 Cardiovascular auscultation of heart Overall: normal heart sounds 09/30/2013 None Full Exam - General 1995 Constitutional general appearance Overall: well developed 09/30/2013 None Full Exam - General 1994 Constitutional general appearance Overall: in no acute distress 09/30/2013 None Full Exam - General 1994 Abdomen abdominal exam Overall: no tenderness 09/30/2013 None Full Exam - General 1995 Abdomen abdominal exam Overall: normal bowel sounds 09/30/2013 None Full Exam - General 1994 Musculoskeletal head and neck Overall: head atraumatic 09/30/2013 None Full Exam - General 1994 Musculoskeletal head and neck Overall: cervical spine benign 09/30/2013 None Full Exam - General 1994 Neurologic gait Overall: no ataxia, no unsteadiness 09/30/2013 None Full Exam - General 1994 Neurologic cranial nerves Overall: crainial nerves 2 - 12 grossly intact 09/30/2013 None Full Exam - General 1994 Psychiatric orientation/consciousness Overall: oriented to person, place and time 09/30/2013 None Full Exam - General 1994 Psychiatric mood and affect Overall: normal mood and affect 09/30/2013 None Full Exam - General 1994 Psychiatric mood and affect Mood: happy 09/30/2013 None Full Exam - General 1994 Constitutional general appearance Overall: well developed 08/20/2013 None Full Exam - General 1994 Constitutional general appearance Overall: in no acute distress 08/20/2013 None Full Exam - General 1994 Constitutional general appearance Overall: well nourished 08/20/2013 None Full Exam - General 1994 Eyes pupils and irises Overall: pupils equal, round, reactive to light and accomodation 08/20/2013 None Full Exam - General 1994 Ears/Nose/Throat otoscopic exam Overall: external auditory canals clear 08/20/2013 None Full Exam - General 1994 Ears/Nose/Throat otoscopic exam Overall: tympanic membranes clear 08/20/2013 None Full Exam - General 1994 Ears/Nose/Throat oral cavity/pharynx/larynx Overall: oral mucosa clear 08/20/2013 None Full Exam - General 1994 Ears/Nose/Throat oral cavity/pharynx/larynx Overall: oropharyngeal mucosa clear 08/20/2013 None Full Exam - General 1994 Ears/Nose/Throat oral cavity/pharynx/larynx Overall: no masses 08/20/2013 None Full Exam - General 1994 Respiratory respiratory effort/rhythm Overall: no retractions 08/20/2013 None Full Exam - General 1994 Respiratory respiratory effort/rhythm Overall: normal rate 08/20/2013 None Full Exam - General 1994 Cardiovascular extremities Overall: no clubbing 08/20/2013 None Full Exam - General 1994 Cardiovascular auscultation of heart Overall: regular rate 08/20/2013 None Full Exam - General 1994 Cardiovascular auscultation of heart Overall: normal heart sounds 08/20/2013 None Full Exam - General 1994 Abdomen abdominal exam Overall: no tenderness 08/20/2013 None Full Exam - General 1994 Abdomen abdominal exam Overall: normal bowel sounds 08/20/2013 None Full Exam - General 1994 Musculoskeletal head and neck Overall: head atraumatic 08/20/2013 None Full Exam - General 1994 Musculoskeletal head and neck Overall: cervical spine benign 08/20/2013 None Full Exam - General 1994 Neurologic gait Overall: no ataxia, no unsteadiness 08/20/2013 None Full Exam - General 1994 Neurologic cranial nerves Overall: crainial nerves 2 - 12 grossly intact 08/20/2013 None Full Exam - General 1994 Psychiatric orientation/consciousness Overall: oriented to person, place and time 08/20/2013 None Full Exam - General 1994 Psychiatric mood and affect Overall: normal mood and affect 08/20/2013 None Full Exam - General 1994 Psychiatric mood and affect Mood: happy 08/20/2013 None Full Exam - General 1994 Respiratory auscultation Overall: breath sounds clear bilaterally 08/20/2013 None Full Exam - General 1994 Constitutional general appearance Overall: well developed 05/30/2013 None Full Exam - General 1994 Constitutional general appearance Overall: in no acute distress 05/30/2013 None Full Exam - General 1994 Constitutional general appearance Overall: well nourished 05/30/2013 None Full Exam - General 1994 Eyes pupils and irises Overall: pupils equal, round, reactive to light and accomodation 05/30/2013 None Full Exam - General 1994 Ears/Nose/Throat otoscopic exam Overall: external auditory canals clear 05/30/2013 None Full Exam - General 1994 Ears/Nose/Throat otoscopic exam Overall: tympanic membranes clear 05/30/2013 None Full Exam - General 1995 Ears/Nose/Throat oral cavity/pharynx/larynx Overall: oral mucosa clear 05/30/2013 None Full Exam - General 1995 Ears/Nose/Throat oral cavity/pharynx/larynx Overall: oropharyngeal mucosa clear 05/30/2013 None Full Exam - General 1994 Ears/Nose/Throat oral cavity/pharynx/larynx Overall: no masses 05/30/2013 None Full Exam - General 1994 Respiratory auscultation Overall: breath sounds clear bilaterally 05/30/2013 None Full Exam - General 1994 Respiratory respiratory effort/rhythm Overall: no retractions 05/30/2013 None Full Exam - General 1994 Respiratory respiratory effort/rhythm Overall: normal rate 05/30/2013 None Full Exam - General 1994 Cardiovascular extremities Overall: no clubbing 05/30/2013 None Full Exam - General 1994 Cardiovascular auscultation of heart Overall: regular rate 05/30/2013 None Full Exam - General 1994 Cardiovascular auscultation of heart Overall: normal heart sounds 05/30/2013 None Full Exam - General 1994 Abdomen abdominal exam Overall: no tenderness 05/30/2013 None Full Exam - General 1994 Abdomen abdominal exam Overall: normal bowel sounds 05/30/2013 None Full Exam - General 1994 Musculoskeletal head and neck Overall: head atraumatic 05/30/2013 None Full Exam - General 1994 Musculoskeletal head and neck Overall: cervical spine benign 05/30/2013 None Full Exam - General 1994 Neurologic gait Overall: no ataxia, no unsteadiness 05/30/2013 None Full Exam - General 1994 Neurologic cranial nerves Overall: crainial nerves 2 - 12 grossly intact 05/30/2013 None Full Exam - General 1994 Psychiatric orientation/consciousness Overall: oriented to person, place and time 05/30/2013 None Full Exam - General 1994 Psychiatric mood and affect Overall: normal mood and affect 05/30/2013 None Full Exam - General 1994 Integument inspection of skin Location: left arm 05/30/2013 dry skin Full Exam - General 1994 Integument inspection of skin Location: right arm 05/30/2013 dry skin Full Exam - General 1994 Constitutional general appearance Overall: well developed 05/07/2013 None Full Exam - General 1994 Constitutional general appearance Overall: in no acute distress 05/07/2013 None Full Exam - General 1994 Constitutional general appearance Overall: well nourished 05/07/2013 None Full Exam - General 1994 Eyes pupils and irises Overall: pupils equal, round, reactive to light and accomodation 05/07/2013 None Full Exam - General 1994 Ears/Nose/Throat otoscopic exam Overall: external auditory canals clear 05/07/2013 None Full Exam - General 1995 Ears/Nose/Throat otoscopic exam Overall: tympanic membranes clear 05/07/2013 None Full Exam - General 1995 Ears/Nose/Throat oral cavity/pharynx/larynx Overall: oral mucosa clear 05/07/2013 None Full Exam - General 1995 Ears/Nose/Throat oral cavity/pharynx/larynx Overall: oropharyngeal mucosa clear 05/07/2013 None Full Exam - General 1995 Ears/Nose/Throat oral cavity/pharynx/larynx Overall: no masses 05/07/2013 None Full Exam - General 1994 Respiratory respiratory effort/rhythm Overall: no retractions 05/07/2013 None Full Exam - General 1994 Respiratory respiratory effort/rhythm Overall: normal rate 05/07/2013 None Full Exam - General 1994 Cardiovascular extremities Overall: no clubbing 05/07/2013 None Full Exam - General 1994 Cardiovascular auscultation of heart Overall: regular rate 05/07/2013 None Full Exam - General 1994 Cardiovascular auscultation of heart Overall: normal heart sounds 05/07/2013 None Full Exam - General 1994 Abdomen abdominal exam Overall: no tenderness 05/07/2013 None Full Exam - General 1994 Abdomen abdominal exam Overall: normal bowel sounds 05/07/2013 None Full Exam - General 1994 Musculoskeletal head and neck Overall: head atraumatic 05/07/2013 None Full Exam - General 1994 Musculoskeletal head and neck Overall: cervical spine benign 05/07/2013 None Full Exam - General 1994 Neurologic gait Overall: no ataxia, no unsteadiness 05/07/2013 None Full Exam - General 1994 Neurologic cranial nerves Overall: crainial nerves 2 - 12 grossly intact 05/07/2013 None Full Exam - General 1994 Psychiatric orientation/consciousness Overall: oriented to person, place and time 05/07/2013 None Full Exam - General 1994 Psychiatric mood and affect Overall: normal mood and affect 05/07/2013 None Full Exam - General 1994 Psychiatric mood and affect Mood: happy 05/07/2013 None Full Exam - General 1994 Respiratory auscultation Basilar: diminished 05/07/2013 None Full Exam - General 1994 Respiratory auscultation Lower lung field: expiratory wheezes 05/07/2013 None Full Exam - General 1994 Respiratory auscultation Upper lung field: expiratory wheezes 05/07/2013 None Full Exam - General 1994 Respiratory auscultation Lower lung field: diminished 05/07/2013 None Full Exam - General 1995 Constitutional general appearance Overall: well developed 04/11/2013 None Full Exam - General 1995 Constitutional general appearance Overall: in no acute distress 04/11/2013 None Full Exam - General 1995 Constitutional general appearance Overall: well nourished 04/11/2013 None Full Exam - General 1994 Eyes pupils and irises Overall: pupils equal, round, reactive to light and accomodation 04/11/2013 None Full Exam - General 1995 Ears/Nose/Throat otoscopic exam Overall: external auditory canals clear 04/11/2013 None Full Exam - General 1995 Ears/Nose/Throat otoscopic exam Overall: tympanic membranes clear 04/11/2013 None Full Exam - General 1995 Ears/Nose/Throat oral cavity/pharynx/larynx Overall: oral mucosa clear 04/11/2013 None Full Exam - General 1995 Ears/Nose/Throat oral cavity/pharynx/larynx Overall: oropharyngeal mucosa clear 04/11/2013 None Full Exam - General 1995 Ears/Nose/Throat oral cavity/pharynx/larynx Overall: no masses 04/11/2013 None Full Exam - General 1994 Respiratory auscultation Overall: breath sounds clear bilaterally 04/11/2013 None Full Exam - General 1994 Respiratory respiratory effort/rhythm Overall: no retractions 04/11/2013 None Full Exam - General 1994 Respiratory respiratory effort/rhythm Overall: normal rate 04/11/2013 None Full Exam - General 1994 Cardiovascular extremities Overall: no clubbing 04/11/2013 None Full Exam - General 1994 Cardiovascular auscultation of heart Overall: regular rate 04/11/2013 None Full Exam - General 1994 Cardiovascular auscultation of heart Overall: normal heart sounds 04/11/2013 None Full Exam - General 1994 Musculoskeletal head and neck Overall: head atraumatic 04/11/2013 None Full Exam - General 1994 Musculoskeletal head and neck Overall: cervical spine benign 04/11/2013 None Full Exam - General 1994 Neurologic gait Overall: no ataxia, no unsteadiness 04/11/2013 None Full Exam - General 1994 Neurologic cranial nerves Overall: crainial nerves 2 - 12 grossly intact 04/11/2013 None Full Exam - General 1994 Psychiatric orientation/consciousness Overall: oriented to person, place and time 04/11/2013 None Full Exam - General 1994 Psychiatric mood and affect Overall: normal mood and affect 04/11/2013 None Full Exam - General 1995 Psychiatric mood and affect Mood: happy 04/11/2013 None Full Exam - General 1995 Constitutional general appearance Overall: well developed 03/18/2013 None Full Exam - General 1995 Constitutional general appearance Overall: in no acute distress 03/18/2013 None Full Exam - General 1995 Constitutional general appearance Overall: well nourished 03/18/2013 None Full Exam - General 1994 Eyes pupils and irises Overall: pupils equal, round, reactive to light and accomodation 03/18/2013 None Full Exam - General 1995 Ears/Nose/Throat otoscopic exam Overall: external auditory canals clear 03/18/2013 None Full Exam - General 1995 Ears/Nose/Throat otoscopic exam Overall: tympanic membranes clear 03/18/2013 None Full Exam - General 1995 Ears/Nose/Throat oral cavity/pharynx/larynx Overall: oral mucosa clear 03/18/2013 None Full Exam - General 1995 Ears/Nose/Throat oral cavity/pharynx/larynx Overall: oropharyngeal mucosa clear 03/18/2013 None Full Exam - General 1995 Ears/Nose/Throat oral cavity/pharynx/larynx Overall: no masses 03/18/2013 None Full Exam - General 1994 Respiratory auscultation Overall: breath sounds clear bilaterally 03/18/2013 None Full Exam - General 1994 Respiratory respiratory effort/rhythm Overall: no retractions 03/18/2013 None Full Exam - General 1994 Respiratory respiratory effort/rhythm Overall: normal rate 03/18/2013 None Full Exam - General 1994 Cardiovascular extremities Overall: no clubbing 03/18/2013 None Full Exam - General 1994 Cardiovascular auscultation of heart Overall: regular rate 03/18/2013 None Full Exam - General 1994 Cardiovascular auscultation of heart Overall: normal heart sounds 03/18/2013 None Full Exam - General 1994 Abdomen abdominal exam Overall: no tenderness 03/18/2013 None Full Exam - General 1994 Abdomen abdominal exam Overall: normal bowel sounds 03/18/2013 None Full Exam - General 1994 Musculoskeletal head and neck Overall: head atraumatic 03/18/2013 None Full Exam - General 1994 Musculoskeletal head and neck Overall: cervical spine benign 03/18/2013 None Full Exam - General 1994 Neurologic gait Overall: no ataxia, no unsteadiness 03/18/2013 None Full Exam - General 1994 Neurologic cranial nerves Overall: crainial nerves 2 - 12 grossly intact 03/18/2013 None Full Exam - General 1995 Psychiatric orientation/consciousness Overall: oriented to person, place and time 03/18/2013 None Full Exam - General 1994 Psychiatric mood and affect Overall: normal mood and affect 03/18/2013 None Full Exam - General 1995 Constitutional general appearance Overall: well developed 02/14/2013 None Full Exam - General 1995 Constitutional general appearance Overall: in no acute distress 02/14/2013 None Full Exam - General 1994 Abdomen abdominal exam Overall: normal bowel sounds 02/14/2013 None Full Exam - General 1995 Musculoskeletal head and neck Overall: head atraumatic 02/14/2013 None Full Exam - General 1995 Musculoskeletal head and neck Overall: cervical spine benign 02/14/2013 None Full Exam - General 1995 Neurologic gait Overall: no ataxia, no unsteadiness 02/14/2013 None Full Exam - General 1994 Neurologic cranial nerves Overall: crainial nerves 2 - 12 grossly intact 02/14/2013 None Full Exam - General 1994 Psychiatric orientation/consciousness Overall: oriented to person, place and time 02/14/2013 None Full Exam - General 1994 Psychiatric mood and affect Overall: normal mood and affect 02/14/2013 None Full Exam - General 1995 Psychiatric mood and affect Mood: happy 02/14/2013 None Full Exam - General 1994 Constitutional general appearance Overall: well nourished 02/14/2013 None Full Exam - General 1994 Eyes pupils and irises Overall: pupils equal, round, reactive to light and accomodation 02/14/2013 None Full Exam - General 1995 Ears/Nose/Throat otoscopic exam Overall: external auditory canals clear 02/14/2013 None Full Exam - General 1994 Ears/Nose/Throat otoscopic exam Overall: tympanic membranes clear 02/14/2013 None Full Exam - General 1995 Ears/Nose/Throat oral cavity/pharynx/larynx Overall: oral mucosa clear 02/14/2013 None Full Exam - General 1995 Ears/Nose/Throat oral cavity/pharynx/larynx Overall: oropharyngeal mucosa clear 02/14/2013 None Full Exam - General 1995 Ears/Nose/Throat oral cavity/pharynx/larynx Overall: no masses 02/14/2013 None Full Exam - General 1994 Respiratory auscultation Overall: breath sounds clear bilaterally 02/14/2013 None Full Exam - General 1994 Respiratory respiratory effort/rhythm Overall: no retractions 02/14/2013 None Full Exam - General 1994 Respiratory respiratory effort/rhythm Overall: normal rate 02/14/2013 None Full Exam - General 1994 Cardiovascular extremities Overall: no clubbing 02/14/2013 None Full Exam - General 1994 Cardiovascular auscultation of heart Overall: regular rate 02/14/2013 None Full Exam - General 1994 Cardiovascular auscultation of heart Overall: normal heart sounds 02/14/2013 None Full Exam - General 1994 Abdomen abdominal exam Overall: no tenderness 02/14/2013 None Full Exam - General 1995 Constitutional general appearance Overall: well developed 01/17/2013 None Full Exam - General 1995 Constitutional general appearance Overall: in no acute distress 01/17/2013 None Full Exam - General 1995 Constitutional general appearance Overall: well nourished 01/17/2013 None Full Exam - General 1994 Eyes pupils and irises Overall: pupils equal, round, reactive to light and accomodation 01/17/2013 None Full Exam - General 1995 Ears/Nose/Throat otoscopic exam Overall: external auditory canals clear 01/17/2013 None Full Exam - General 1995 Ears/Nose/Throat otoscopic exam Overall: tympanic membranes clear 01/17/2013 None Full Exam - General 1995 Ears/Nose/Throat oral cavity/pharynx/larynx Overall: oral mucosa clear 01/17/2013 None Full Exam - General 1995 Ears/Nose/Throat oral cavity/pharynx/larynx Overall: oropharyngeal mucosa clear 01/17/2013 None Full Exam - General 1995 Ears/Nose/Throat oral cavity/pharynx/larynx Overall: no masses 01/17/2013 None Full Exam - General 1994 Respiratory auscultation Overall: breath sounds clear bilaterally 01/17/2013 None Full Exam - General 1994 Respiratory respiratory effort/rhythm Overall: no retractions 01/17/2013 None Full Exam - General 1994 Respiratory respiratory effort/rhythm Overall: normal rate 01/17/2013 None Full Exam - General 1994 Cardiovascular extremities Overall: no clubbing 01/17/2013 None Full Exam - General 1994 Cardiovascular auscultation of heart Overall: regular rate 01/17/2013 None Full Exam - General 1994 Cardiovascular auscultation of heart Overall: normal heart sounds 01/17/2013 None Full Exam - General 1994 Abdomen abdominal exam Overall: no tenderness 01/17/2013 None Full Exam - General 1994 Abdomen abdominal exam Overall: normal bowel sounds 01/17/2013 None Full Exam - General 1994 Musculoskeletal head and neck Overall: head atraumatic 01/17/2013 None Full Exam - General 1994 Musculoskeletal head and neck Overall: cervical spine benign 01/17/2013 None Full Exam - General 1994 Neurologic gait Overall: no ataxia, no unsteadiness 01/17/2013 None Full Exam - General 1994 Neurologic cranial nerves Overall: crainial nerves 2 - 12 grossly intact 01/17/2013 None Full Exam - General 1994 Psychiatric orientation/consciousness Overall: oriented to person, place and time 01/17/2013 None Full Exam - General 1994 Psychiatric mood and affect Overall: normal mood and affect 01/17/2013 None Full Exam - General 1994 Constitutional general appearance Overall: in no acute distress 12/27/2012 None Full Exam - General 1994 Constitutional general appearance Overall: well nourished 12/27/2012 None Full Exam - General 1994 Eyes pupils and irises Overall: pupils equal, round, reactive to light and accomodation 12/27/2012 None Full Exam - General 1994 Ears/Nose/Throat otoscopic exam Overall: external auditory canals clear 12/27/2012 None Full Exam - General 1995 Ears/Nose/Throat otoscopic exam Overall: tympanic membranes clear 12/27/2012 None Full Exam - General 1994 Ears/Nose/Throat oral cavity/pharynx/larynx Overall: oral mucosa clear 12/27/2012 None Full Exam - General 1995 Ears/Nose/Throat oral cavity/pharynx/larynx Overall: oropharyngeal mucosa clear 12/27/2012 None Full Exam - General 1995 Ears/Nose/Throat oral cavity/pharynx/larynx Overall: no masses 12/27/2012 None Full Exam - General 1994 Respiratory respiratory effort/rhythm Overall: no retractions 12/27/2012 None Full Exam - General 1994 Respiratory respiratory effort/rhythm Overall: normal rate 12/27/2012 None Full Exam - General 1994 Cardiovascular extremities Overall: no clubbing 12/27/2012 None Full Exam - General 1994 Cardiovascular auscultation of heart Overall: regular rate 12/27/2012 None Full Exam - General 1994 Cardiovascular auscultation of heart Overall: normal heart sounds 12/27/2012 None Full Exam - General 1994 Constitutional general appearance Overall: well developed 12/27/2012 None Full Exam - General 1994 Abdomen abdominal exam Overall: no tenderness 12/27/2012 None Full Exam - General 1994 Abdomen abdominal exam Overall: normal bowel sounds 12/27/2012 None Full Exam - General 1995 Musculoskeletal head and neck Overall: head atraumatic 12/27/2012 None Full Exam - General 1995 Musculoskeletal head and neck Overall: cervical spine benign 12/27/2012 None Full Exam - General 1995 Neurologic gait Overall: no ataxia, no unsteadiness 12/27/2012 None Full Exam - General 1995 Neurologic cranial nerves Overall: crainial nerves 2 - 12 grossly intact 12/27/2012 None Full Exam - General 1994 Psychiatric orientation/consciousness Overall: oriented to person, place and time 12/27/2012 None Full Exam - General 1995 Psychiatric mood and affect Overall: normal mood and affect 12/27/2012 None Full Exam - General 1995 Psychiatric mood and affect Mood: happy 12/27/2012 None Full Exam - General 1995 Respiratory auscultation Overall: breath sounds clear bilaterally 12/27/2012 None Full Exam - General 1995 Constitutional general appearance Overall: well developed 12/05/2012 None Full Exam - General 1995 Constitutional general appearance Overall: in no acute distress 12/05/2012 None Full Exam - General 1995 Constitutional general appearance Overall: well nourished 12/05/2012 None Full Exam - General 1994 Eyes pupils and irises Overall: pupils equal, round, reactive to light and accomodation 12/05/2012 None Full Exam - General 1995 Ears/Nose/Throat otoscopic exam Overall: external auditory canals clear 12/05/2012 None Full Exam - General 1995 Ears/Nose/Throat otoscopic exam Overall: tympanic membranes clear 12/05/2012 None Full Exam - General 1995 Ears/Nose/Throat oral cavity/pharynx/larynx Overall: oral mucosa clear 12/05/2012 None Full Exam - General 1995 Ears/Nose/Throat oral cavity/pharynx/larynx Overall: oropharyngeal mucosa clear 12/05/2012 None Full Exam - General 1995 Ears/Nose/Throat oral cavity/pharynx/larynx Overall: no masses 12/05/2012 None Full Exam - General 1994 Respiratory respiratory effort/rhythm Overall: no retractions 12/05/2012 None Full Exam - General 1994 Respiratory respiratory effort/rhythm Overall: normal rate 12/05/2012 None Full Exam - General 1994 Cardiovascular extremities Overall: no clubbing 12/05/2012 None Full Exam - General 1994 Cardiovascular auscultation of heart Overall: regular rate 12/05/2012 None Full Exam - General 1994 Cardiovascular auscultation of heart Overall: normal heart sounds 12/05/2012 None Full Exam - General 1995 Abdomen abdominal exam Overall: no tenderness 12/05/2012 None Full Exam - General 1994 Abdomen abdominal exam Overall: normal bowel sounds 12/05/2012 None Full Exam - General 1994 Musculoskeletal head and neck Overall: head atraumatic 12/05/2012 None Full Exam - General 1994 Musculoskeletal head and neck Overall: cervical spine benign 12/05/2012 None Full Exam - General 1994 Neurologic gait Overall: no ataxia, no unsteadiness 12/05/2012 None Full Exam - General 1994 Neurologic cranial nerves Overall: crainial nerves 2 - 12 grossly intact 12/05/2012 None Full Exam - General 1994 Psychiatric orientation/consciousness Overall: oriented to person, place and time 12/05/2012 None Full Exam - General 1994 Psychiatric mood and affect Overall: normal mood and affect 12/05/2012 None Full Exam - General 1994 Psychiatric mood and affect Mood: happy 12/05/2012 None Full Exam - General 1994 Respiratory auscultation Upper lung field: a normal exam 12/05/2012 None Full Exam - General 1994 Respiratory auscultation Lower lung field: crackles 12/05/2012 None Full Exam - General 1994 Integument inspection of skin Location: abdomen 12/05/2012 midline to left mid abdomen erythema - faint vesicular formation in center of rash Full Exam - General 1994 Constitutional general appearance Overall: well developed 10/11/2012 None Full Exam - General 1994 Constitutional general appearance Overall: in no acute distress 10/11/2012 None Full Exam - General 1994 Constitutional general appearance Overall: well nourished 10/11/2012 None Full Exam - General 1994 Eyes pupils and irises Overall: pupils equal, round, reactive to light and accomodation 10/11/2012 None Full Exam - General 1994 Ears/Nose/Throat otoscopic exam Overall: external auditory canals clear 10/11/2012 None Full Exam - General 1994 Ears/Nose/Throat otoscopic exam Overall: tympanic membranes clear 10/11/2012 None Full Exam - General 1994 Ears/Nose/Throat oral cavity/pharynx/larynx Overall: oral mucosa clear 10/11/2012 None Full Exam - General 1994 Ears/Nose/Throat oral cavity/pharynx/larynx Overall: oropharyngeal mucosa clear 10/11/2012 None Full Exam - General 1994 Ears/Nose/Throat oral cavity/pharynx/larynx Overall: no masses 10/11/2012 None Full Exam - General 1994 Respiratory auscultation Overall: breath sounds clear bilaterally 10/11/2012 None Full Exam - General 1994 Respiratory respiratory effort/rhythm Overall: no retractions 10/11/2012 None Full Exam - General 1994 Respiratory respiratory effort/rhythm Overall: normal rate 10/11/2012 None Full Exam - General 1994 Cardiovascular extremities Overall: no clubbing 10/11/2012 None Full Exam - General 1994 Cardiovascular auscultation of heart Overall: regular rate 10/11/2012 None Full Exam - General 1994 Cardiovascular auscultation of heart Overall: normal heart sounds 10/11/2012 None Full Exam - General 1994 Abdomen abdominal exam Overall: no tenderness 10/11/2012 None Full Exam - General 1994 Abdomen abdominal exam Overall: normal bowel sounds 10/11/2012 None Full Exam - General 1994 Musculoskeletal head and neck Overall: head atraumatic 10/11/2012 None Full Exam - General 1994 Musculoskeletal head and neck Overall: cervical spine benign 10/11/2012 None Full Exam - General 1994 Neurologic gait Overall: no ataxia, no unsteadiness 10/11/2012 None Full Exam - General 1994 Neurologic cranial nerves Overall: crainial nerves 2 - 12 grossly intact 10/11/2012 None Full Exam - General 1994 Psychiatric orientation/consciousness Overall: oriented to person, place and time 10/11/2012 None Full Exam - General 1994 Psychiatric mood and affect Overall: normal mood and affect 10/11/2012 None Full Exam - General 1994 Psychiatric mood and affect Mood: happy 10/11/2012 None Full Exam - General Constitutional general appearance Overall: well nourished 07/25/2012 None Full Exam - General Constitutional general appearance Overall: well developed 07/25/2012 None Full Exam - General Constitutional general appearance Overall: in no acute distress 07/25/2012 None Full Exam - General Respiratory auscultation Diffuse: a normal exam 07/25/2012 None Full Exam - General Respiratory auscultation Left upper lung field: a normal exam 07/25/2012 None Full Exam - General Respiratory auscultation Left lower lung field: crackles 07/25/2012 None Full Exam - General Respiratory auscultation Right upper lung field: a normal exam 07/25/2012 None Full Exam - General Respiratory auscultation Right middle lung field: a normal exam 07/25/2012 None Full Exam - General Respiratory auscultation Right lower lung field: a normal exam 07/25/2012 None Full Exam - General Respiratory respiratory effort/rhythm Overall: no retractions 07/25/2012 None Full Exam - General Respiratory respiratory effort/rhythm Overall: normal rate 07/25/2012 None Full Exam - General Respiratory respiratory effort/rhythm Rate: a normal exam 07/25/2012 None Full Exam - General Respiratory respiratory effort/rhythm Rhythm: a normal exam 07/25/2012 None Full Exam - General Cardiovascular auscultation of heart Overall: regular rate 07/25/2012 None Full Exam - General Cardiovascular auscultation of heart S1: a normal exam 07/25/2012 None Full Exam - General Cardiovascular auscultation of heart S2: a normal exam 07/25/2012 None Full Exam - General Cardiovascular auscultation of heart Murmur: previously known murmur unchanged 07/25/2012 None Full Exam - General Cardiovascular auscultation of heart Systolic murmur grade: II/ 07/25/2012 None Full Exam - General Cardiovascular extremities Overall: no clubbing 07/25/2012 None Full Exam - General Musculoskeletal right lower extremity Inspection - right knee: swelling 07/25/2012 None Full Exam - General Musculoskeletal right lower extremity Palpation - right knee: positive bulge sign 07/25/2012 None Full Exam - General Musculoskeletal right lower extremity Palpation - right knee: crepitus 07/25/2012 None Full Exam - General Musculoskeletal right lower extremity ROM - right knee: crepitus 07/25/2012 None Full Exam - General Musculoskeletal left lower extremity Palpation - left knee: crepitus 07/25/2012 None Full Exam - General Musculoskeletal left lower extremity Palpation - left knee: no effusion 07/25/2012 None Full Exam - General Musculoskeletal gait and station Overall: normal gait 07/25/2012 None Full Exam - General Musculoskeletal gait and station Overall: normal station 07/25/2012 None Full Exam - General Psychiatric orientation/consciousness Overall: oriented to person, place and time 07/25/2012 None Full Exam - General Psychiatric orientation/consciousness Level of consciousness: alert 07/25/2012 None Full Exam - General 1994 Constitutional general appearance Overall: well developed 07/11/2012 None Full Exam - General 1994 Constitutional general appearance Overall: in no acute distress 07/11/2012 None Full Exam - General 1994 Constitutional general appearance Overall: well nourished 07/11/2012 None Full Exam - General 1994 Eyes pupils and irises Overall: pupils equal, round, reactive to light and accomodation 07/11/2012 None Full Exam - General 1994 Ears/Nose/Throat otoscopic exam Overall: external auditory canals clear 07/11/2012 None Full Exam - General 1995 Ears/Nose/Throat otoscopic exam Overall: tympanic membranes clear 07/11/2012 None Full Exam - General 1994 Ears/Nose/Throat oral cavity/pharynx/larynx Overall: oral mucosa clear 07/11/2012 None Full Exam - General 1994 Ears/Nose/Throat oral cavity/pharynx/larynx Overall: oropharyngeal mucosa clear 07/11/2012 None Full Exam - General 1994 Ears/Nose/Throat oral cavity/pharynx/larynx Overall: no masses 07/11/2012 None Full Exam - General 1994 Respiratory auscultation Overall: breath sounds clear bilaterally 07/11/2012 None Full Exam - General 1994 Respiratory respiratory effort/rhythm Overall: no retractions 07/11/2012 None Full Exam - General 1994 Respiratory respiratory effort/rhythm Overall: normal rate 07/11/2012 None Full Exam - General 1994 Cardiovascular extremities Overall: no clubbing 07/11/2012 None Full Exam - General 1994 Cardiovascular auscultation of heart Overall: regular rate 07/11/2012 None Full Exam - General 1994 Cardiovascular auscultation of heart Overall: normal heart sounds 07/11/2012 None Full Exam - General 1994 Abdomen abdominal exam Overall: no tenderness 07/11/2012 None Full Exam - General 1994 Abdomen abdominal exam Overall: normal bowel sounds 07/11/2012 None Full Exam - General 1994 Musculoskeletal head and neck Overall: head atraumatic 07/11/2012 None Full Exam - General 1994 Musculoskeletal head and neck Overall: cervical spine benign 07/11/2012 None Full Exam - General 1994 Neurologic gait Overall: no ataxia, no unsteadiness 07/11/2012 None Full Exam - General 1994 Neurologic cranial nerves Overall: crainial nerves 2 - 12 grossly intact 07/11/2012 None Full Exam - General 1994 Psychiatric orientation/consciousness Overall: oriented to person, place and time 07/11/2012 None Full Exam - General 1994 Psychiatric mood and affect Overall: normal mood and affect 07/11/2012 None Full Exam - General 1994 Constitutional general appearance Overall: well developed 06/13/2012 None Full Exam - General 1994 Constitutional general appearance Overall: in no acute distress 06/13/2012 None Full Exam - General 1995 Constitutional general appearance Overall: well nourished 06/13/2012 None Full Exam - General 1994 Eyes pupils and irises Overall: pupils equal, round, reactive to light and accomodation 06/13/2012 None Full Exam - General 1995 Ears/Nose/Throat otoscopic exam Overall: external auditory canals clear 06/13/2012 None Full Exam - General 1995 Ears/Nose/Throat otoscopic exam Overall: tympanic membranes clear 06/13/2012 None Full Exam - General 1994 Ears/Nose/Throat oral cavity/pharynx/larynx Overall: oral mucosa clear 06/13/2012 None Full Exam - General 1995 Ears/Nose/Throat oral cavity/pharynx/larynx Overall: oropharyngeal mucosa clear 06/13/2012 None Full Exam - General 1994 Psychiatric orientation/consciousness Overall: oriented to person, place and time 06/13/2012 None Full Exam - General 1994 Psychiatric mood and affect Overall: normal mood and affect 06/13/2012 None Full Exam - General 1994 Ears/Nose/Throat oral cavity/pharynx/larynx Overall: no masses 06/13/2012 None Full Exam - General 1994 Respiratory auscultation Overall: breath sounds clear bilaterally 06/13/2012 None Full Exam - General 1994 Respiratory respiratory effort/rhythm Overall: no retractions 06/13/2012 None Full Exam - General 1994 Respiratory respiratory effort/rhythm Overall: normal rate 06/13/2012 None Full Exam - General 1994 Cardiovascular extremities Overall: no clubbing 06/13/2012 None Full Exam - General 1994 Cardiovascular auscultation of heart Overall: regular rate 06/13/2012 None Full Exam - General 1994 Cardiovascular auscultation of heart Overall: normal heart sounds 06/13/2012 None Full Exam - General 1994 Abdomen abdominal exam Overall: no tenderness 06/13/2012 None Full Exam - General 1994 Abdomen abdominal exam Overall: normal bowel sounds 06/13/2012 None Full Exam - General 1994 Musculoskeletal head and neck Overall: head atraumatic 06/13/2012 None Full Exam - General 1994 Musculoskeletal head and neck Overall: cervical spine benign 06/13/2012 None Full Exam - General 1994 Neurologic gait Overall: no ataxia, no unsteadiness 06/13/2012 None Full Exam - General 1994 Neurologic cranial nerves Overall: crainial nerves 2 - 12 grossly intact 06/13/2012 None Full Exam - General 1994 Constitutional general appearance Overall: well nourished 05/10/2012 None Full Exam - General 1994 Constitutional general appearance Overall: well developed 05/10/2012 None Full Exam - General 1994 Constitutional general appearance Overall: in no acute distress 05/10/2012 None Full Exam - General 1994 Eyes pupils and irises Overall: pupils equal, round, reactive to light and accomodation 05/10/2012 None Full Exam - General 1994 Respiratory respiratory effort/rhythm Overall: normal rate 05/10/2012 None Full Exam - General 1994 Respiratory respiratory effort/rhythm Overall: no retractions 05/10/2012 None Full Exam - General 1994 Respiratory auscultation Overall: breath sounds clear bilaterally 05/10/2012 None Full Exam - General 1994 Ears/Nose/Throat oral cavity/pharynx/larynx Overall: oropharyngeal mucosa clear 05/10/2012 None Full Exam - General 1994 Ears/Nose/Throat oral cavity/pharynx/larynx Overall: no masses 05/10/2012 None Full Exam - General 1994 Ears/Nose/Throat oral cavity/pharynx/larynx Overall: oral mucosa clear 05/10/2012 None Full Exam - General 1994 Ears/Nose/Throat otoscopic exam Overall: tympanic membranes clear 05/10/2012 None Full Exam - General 1994 Ears/Nose/Throat otoscopic exam Overall: external auditory canals clear 05/10/2012 None Full Exam - General 1994 Cardiovascular extremities Overall: no clubbing 05/10/2012 None Full Exam - General 1994 Cardiovascular auscultation of heart Overall: regular rate 05/10/2012 None Full Exam - General 1994 Cardiovascular auscultation of heart Overall: normal heart sounds 05/10/2012 None Full Exam - General 1994 Psychiatric mood and affect Mood: happy 05/10/2012 None Full Exam - General 1994 Psychiatric mood and affect Overall: normal mood and affect 05/10/2012 None Full Exam - General 1994 Psychiatric orientation/consciousness Overall: oriented to person, place and time 05/10/2012 None Full Exam - General 1994 Neurologic gait Overall: no ataxia, no unsteadiness 05/10/2012 None Full Exam - General 1994 Neurologic cranial nerves Overall: crainial nerves 2 - 12 grossly intact 05/10/2012 None Full Exam - General 1994 Musculoskeletal head and neck Overall: cervical spine benign 05/10/2012 None Full Exam - General 1994 Musculoskeletal head and neck Overall: head atraumatic 05/10/2012 None Full Exam - General 1994 Abdomen abdominal exam Overall: no tenderness 05/10/2012 None Full Exam - General 1995 Abdomen abdominal exam Overall: normal bowel sounds 05/10/2012 None Full Exam - General Ears/Nose/Throat lips /teeth/gingiva Overall: normal dentition 03/20/2012 None Full Exam - General Ears/Nose/Throat oral cavity/pharynx/larynx Overall: oral mucosa clear 03/20/2012 None Full Exam - General Ears/Nose/Throat oral cavity/pharynx/larynx Overall: oropharyngeal mucosa clear 03/20/2012 None Full Exam - General Respiratory auscultation Left upper lung field: a normal exam 03/20/2012 None Full Exam - General Respiratory auscultation Right upper lung field: a normal exam 03/20/2012 None Full Exam - General Respiratory auscultation Right middle lung field: a normal exam 03/20/2012 None Full Exam - General Respiratory respiratory effort/rhythm Overall: no retractions 03/20/2012 None Full Exam - General Respiratory respiratory effort/rhythm Overall: normal rate 03/20/2012 None Full Exam - General Respiratory respiratory effort/rhythm Rate: a normal exam 03/20/2012 None Full Exam - General Respiratory respiratory effort/rhythm Rhythm: a normal exam 03/20/2012 None Full Exam - General Cardiovascular auscultation of heart Overall: regular rate 03/20/2012 None Full Exam - General Cardiovascular auscultation of heart S1: a normal exam 03/20/2012 None Full Exam - General Cardiovascular auscultation of heart S2: a normal exam 03/20/2012 None Full Exam - General Cardiovascular auscultation of heart Murmur: previously known murmur unchanged 03/20/2012 None Full Exam - General Constitutional general appearance Overall: well nourished 03/20/2012 None Full Exam - General Constitutional general appearance Overall: well developed 03/20/2012 None Full Exam - General Constitutional general appearance Overall: in no acute distress 03/20/2012 None Full Exam - General Ears/Nose/Throat lips /teeth/gingiva Overall: benign lips 03/20/2012 None Full Exam - General Cardiovascular auscultation of heart Systolic murmur grade: II/ 03/20/2012 None Full Exam - General Cardiovascular extremities Overall: no clubbing 03/20/2012 None Full Exam - General Lymphatic neck nodes Overall: anterior cervical chain benign 03/20/2012 None Full Exam - General Lymphatic neck nodes Overall: posterior cervical chain benign 03/20/2012 None Full Exam - General Musculoskeletal gait and station Overall: normal gait 03/20/2012 None Full Exam - General Musculoskeletal gait and station Overall: normal station 03/20/2012 None Full Exam - General Neurologic cranial nerves Overall: cranial nerves 1-12 intact 03/20/2012 None Full Exam - General Psychiatric orientation/consciousness Overall: oriented to person, place and time 03/20/2012 None Full Exam - General Psychiatric orientation/consciousness Level of consciousness: alert 03/20/2012 None Full Exam - General Eyes conjunctiva/ eyelids Overall: conjunctiva clear 03/20/2012 bruising noted left cheek with swelling as well Full Exam - General Respiratory auscultation Right lower lung field: diminished 03/20/2012 None Full Exam - General Respiratory auscultation Left lower lung field: diminished 03/20/2012 None Full Exam - General Cardiovascular auscultation of heart Overall: regular rate 02/28/2012 None Full Exam - General Cardiovascular auscultation of heart S1: a normal exam 02/28/2012 None Full Exam - General Cardiovascular auscultation of heart S2: a normal exam 02/28/2012 None Full Exam - General Cardiovascular auscultation of heart Murmur: previously known murmur unchanged 02/28/2012 None Full Exam - General Cardiovascular auscultation of heart Systolic murmur grade: II/ 02/28/2012 None Full Exam - General Cardiovascular extremities Overall: no clubbing 02/28/2012 None Full Exam - General Constitutional general appearance Overall: well nourished 02/28/2012 None Full Exam - General Constitutional general appearance Overall: well developed 02/28/2012 None Full Exam - General Constitutional general appearance Overall: in no acute distress 02/28/2012 None Full Exam - General Ears/Nose/Throat internal nose Left nasal cavity: crusting 02/28/2012 None Full Exam - General Ears/Nose/Throat lips /teeth/gingiva Overall: benign lips 02/28/2012 None Full Exam - General Ears/Nose/Throat lips /teeth/gingiva Overall: normal dentition 02/28/2012 None Full Exam - General Ears/Nose/Throat oral cavity/pharynx/larynx Overall: oral mucosa clear 02/28/2012 None Full Exam - General Ears/Nose/Throat oral cavity/pharynx/larynx Overall: oropharyngeal mucosa clear 02/28/2012 None Full Exam - General Musculoskeletal gait and station Overall: normal gait 02/28/2012 None Full Exam - General Musculoskeletal gait and station Overall: normal station 02/28/2012 None Full Exam - General Neurologic cranial nerves Overall: cranial nerves 1-12 intact 02/28/2012 None Full Exam - General Neurologic cranial nerves CN 2-left eye: a normal exam 02/28/2012 None Full Exam - General Neurologic cranial nerves CN 2-right eye: a normal exam 02/28/2012 None Full Exam - General Neurologic cranial nerves Visual field: a normal exam 02/28/2012 None Full Exam - General Neurologic cranial nerves Left visual field: a normal exam 02/28/2012 None Full Exam - General Neurologic cranial nerves Right visual field: a normal exam 02/28/2012 None Full Exam - General Neurologic cranial nerves Pupillary size: Pupils equal 02/28/2012 None Full Exam - General Neurologic cranial nerves CN3,4,6: extraocular movements intact 02/28/2012 None Full Exam - General Neurologic cranial nerves CN7: a normal exam 02/28/2012 None Full Exam - General Neurologic cranial nerves CN12: a normal exam 02/28/2012 None Full Exam - General Psychiatric orientation/consciousness Overall: oriented to person, place and time 02/28/2012 None Full Exam - General Psychiatric orientation/consciousness Level of consciousness: alert 02/28/2012 None Full Exam - General Respiratory auscultation Diffuse: a normal exam 02/28/2012 None Full Exam - General Respiratory auscultation Left upper lung field: a normal exam 02/28/2012 None Full Exam - General Respiratory auscultation Right upper lung field: a normal exam 02/28/2012 None Full Exam - General Respiratory auscultation Right middle lung field: a normal exam 02/28/2012 None Full Exam - General Respiratory auscultation Right lower lung field: a normal exam 02/28/2012 None Full Exam - General Respiratory respiratory effort/rhythm Overall: no retractions 02/28/2012 None Full Exam - General Respiratory respiratory effort/rhythm Overall: normal rate 02/28/2012 None Full Exam - General Respiratory respiratory effort/rhythm Rate: a normal exam 02/28/2012 None Full Exam - General Respiratory respiratory effort/rhythm Rhythm: a normal exam 02/28/2012 None Full Exam - General Ears/Nose/Throat internal nose Left nasal cavity: drainage 02/28/2012 slight irritation left nare with slight erythema and swelling noted-no lesion noted Full Exam - General Respiratory auscultation Left lower lung field: crackles 02/28/2012 None Full Exam - General Lymphatic neck nodes Overall: anterior cervical chain benign 02/28/2012 None Full Exam - General Lymphatic neck nodes Overall: posterior cervical chain benign 02/28/2012 None Full Exam - General Musculoskeletal left lower extremity Palpation - left knee: crepitus 02/28/2012 None Full Exam - General Musculoskeletal left lower extremity Palpation - left knee: no effusion 02/28/2012 None Full Exam - General Musculoskeletal right lower extremity Inspection - right knee: swelling 02/28/2012 None Full Exam - General Musculoskeletal right lower extremity Palpation - right knee: crepitus 02/28/2012 None Full Exam - General Musculoskeletal right lower extremity Palpation - right knee: positive bulge sign 02/28/2012 None Full Exam - General Musculoskeletal right lower extremity ROM - right knee: crepitus 02/28/2012 None Full Exam - General Cardiovascular auscultation of heart Overall: regular rate 12/13/2011 None Full Exam - General Cardiovascular auscultation of heart S1: a normal exam 12/13/2011 None Full Exam - General Cardiovascular auscultation of heart S2: a normal exam 12/13/2011 None Full Exam - General Cardiovascular auscultation of heart Murmur: previously known murmur unchanged 12/13/2011 None Full Exam - General Cardiovascular auscultation of heart Systolic murmur grade: II/ 12/13/2011 None Full Exam - General Cardiovascular extremities Overall: no clubbing 12/13/2011 None Full Exam - General Constitutional general appearance Overall: well nourished 12/13/2011 None Full Exam - General Constitutional general appearance Overall: well developed 12/13/2011 None Full Exam - General Constitutional general appearance Overall: in no acute distress 12/13/2011 None Full Exam - General Ears/Nose/Throat lips /teeth/gingiva Overall: benign lips 12/13/2011 None Full Exam - General Ears/Nose/Throat lips /teeth/gingiva Overall: normal dentition 12/13/2011 None Full Exam - General Ears/Nose/Throat oral cavity/pharynx/larynx Overall: oral mucosa clear 12/13/2011 None Full Exam - General Ears/Nose/Throat oral cavity/pharynx/larynx Overall: oropharyngeal mucosa clear 12/13/2011 None Full Exam - General Musculoskeletal gait and station Overall: normal gait 12/13/2011 None Full Exam - General Musculoskeletal gait and station Overall: normal station 12/13/2011 None Full Exam - General Neurologic cranial nerves Overall: cranial nerves 1-12 intact 12/13/2011 None Full Exam - General Neurologic cranial nerves CN 2-left eye: a normal exam 12/13/2011 None Full Exam - General Neurologic cranial nerves CN 2-right eye: a normal exam 12/13/2011 None Full Exam - General Neurologic cranial nerves Visual field: a normal exam 12/13/2011 None Full Exam - General Neurologic cranial nerves Left visual field: a normal exam 12/13/2011 None Full Exam - General Neurologic cranial nerves Right visual field: a normal exam 12/13/2011 None Full Exam - General Neurologic cranial nerves Pupillary size: Pupils equal 12/13/2011 None Full Exam - General Neurologic cranial nerves CN3,4,6: extraocular movements intact 12/13/2011 None Full Exam - General Neurologic cranial nerves CN7: a normal exam 12/13/2011 None Full Exam - General Neurologic cranial nerves CN12: a normal exam 12/13/2011 None Full Exam - General Psychiatric orientation/consciousness Overall: oriented to person, place and time 12/13/2011 None Full Exam - General Psychiatric orientation/consciousness Level of consciousness: alert 12/13/2011 None Full Exam - General Respiratory auscultation Diffuse: a normal exam 12/13/2011 None Full Exam - General Respiratory auscultation Left upper lung field: a normal exam 12/13/2011 None Full Exam - General Respiratory auscultation Right upper lung field: a normal exam 12/13/2011 None Full Exam - General Respiratory auscultation Right middle lung field: a normal exam 12/13/2011 None Full Exam - General Respiratory auscultation Right lower lung field: a normal exam 12/13/2011 None Full Exam - General Respiratory respiratory effort/rhythm Overall: no retractions 12/13/2011 None Full Exam - General Respiratory respiratory effort/rhythm Overall: normal rate 12/13/2011 None Full Exam - General Respiratory respiratory effort/rhythm Rate: a normal exam 12/13/2011 None Full Exam - General Respiratory respiratory effort/rhythm Rhythm: a normal exam 12/13/2011 None Full Exam - General Ears/Nose/Throat internal nose Left nasal cavity: crusting 12/13/2011 None Full Exam - General Respiratory auscultation Left lower lung field: crackles 12/13/2011 None Full Exam - General Ears/Nose/Throat internal nose Left nasal cavity: drainage 12/13/2011 slight irritation left nare with slight erythema and swelling noted-no lesion noted Full Exam - General Lymphatic neck nodes Overall: anterior cervical chain benign 12/13/2011 None Full Exam - General Lymphatic neck nodes Overall: posterior cervical chain benign 12/13/2011 None Full Exam - General Constitutional general appearance Overall: well nourished 12/05/2011 None Full Exam - General Constitutional general appearance Overall: well developed 12/05/2011 None Full Exam - General Constitutional general appearance Overall: in no acute distress 12/05/2011 None Full Exam - General Ears/Nose/Throat lips /teeth/gingiva Overall: benign lips 12/05/2011 None Full Exam - General Ears/Nose/Throat lips /teeth/gingiva Overall: normal dentition 12/05/2011 None Full Exam - General Ears/Nose/Throat oral cavity/pharynx/larynx Overall: oral mucosa clear 12/05/2011 None Full Exam - General Ears/Nose/Throat oral cavity/pharynx/larynx Overall: oropharyngeal mucosa clear 12/05/2011 None Full Exam - General Respiratory auscultation Overall: breath sounds clear bilaterally 12/05/2011 None Full Exam - General Respiratory auscultation Diffuse: a normal exam 12/05/2011 None Full Exam - General Respiratory auscultation Left upper lung field: a normal exam 12/05/2011 None Full Exam - General Respiratory auscultation Left lower lung field: a normal exam 12/05/2011 None Full Exam - General Respiratory auscultation Right upper lung field: a normal exam 12/05/2011 None Full Exam - General Respiratory auscultation Right middle lung field: a normal exam 12/05/2011 None Full Exam - General Respiratory auscultation Right lower lung field: a normal exam 12/05/2011 None Full Exam - General Respiratory respiratory effort/rhythm Overall: no retractions 12/05/2011 None Full Exam - General Respiratory respiratory effort/rhythm Overall: normal rate 12/05/2011 None Full Exam - General Respiratory respiratory effort/rhythm Rate: a normal exam 12/05/2011 None Full Exam - General Respiratory respiratory effort/rhythm Rhythm: a normal exam 12/05/2011 None Full Exam - General Cardiovascular auscultation of heart Overall: regular rate 12/05/2011 None Full Exam - General Cardiovascular auscultation of heart S1: a normal exam 12/05/2011 None Full Exam - General Cardiovascular auscultation of heart S2: a normal exam 12/05/2011 None Full Exam - General Cardiovascular auscultation of heart Murmur: previously known murmur unchanged 12/05/2011 None Full Exam - General Cardiovascular auscultation of heart Systolic murmur grade: II/ 12/05/2011 None Full Exam - General Cardiovascular extremities Overall: no clubbing 12/05/2011 None Full Exam - General Musculoskeletal gait and station Overall: normal gait 12/05/2011 None Full Exam - General Musculoskeletal gait and station Overall: normal station 12/05/2011 None Full Exam - General Neurologic cranial nerves Overall: cranial nerves 1-12 intact 12/05/2011 None Full Exam - General Neurologic cranial nerves CN 2-left eye: a normal exam 12/05/2011 None Full Exam - General Neurologic cranial nerves CN 2-right eye: a normal exam 12/05/2011 None Full Exam - General Neurologic cranial nerves Visual field: a normal exam 12/05/2011 None Full Exam - General Neurologic cranial nerves Left visual field: a normal exam 12/05/2011 None Full Exam - General Neurologic cranial nerves Right visual field: a normal exam 12/05/2011 None Full Exam - General Neurologic cranial nerves Pupillary size: Pupils equal 12/05/2011 None Full Exam - General Neurologic cranial nerves CN3,4,6: extraocular movements intact 12/05/2011 None Full Exam - General Neurologic cranial nerves CN7: a normal exam 12/05/2011 None Full Exam - General Neurologic cranial nerves CN12: a normal exam 12/05/2011 None Full Exam - General Psychiatric orientation/consciousness Overall: oriented to person, place and time 12/05/2011 None Full Exam - General Psychiatric orientation/consciousness Level of consciousness: alert 12/05/2011 None Full Exam - General Ears/Nose/Throat internal nose Left nasal cavity: lesion 12/05/2011 None Full Exam - General Ears/Nose/Throat internal nose Left nasal cavity: crusting 12/05/2011 None Full Exam - General Abdomen abdominal exam Left lower quadrant: soft 07/26/2011 None Full Exam - General Constitutional general appearance Overall: well nourished 07/26/2011 None Full Exam - General Constitutional general appearance Overall: well developed 07/26/2011 None Full Exam - General Constitutional general appearance Overall: in no acute distress 07/26/2011 None Full Exam - General Ears/Nose/Throat lips /teeth/gingiva Overall: benign lips 07/26/2011 None Full Exam - General Ears/Nose/Throat lips /teeth/gingiva Overall: normal dentition 07/26/2011 None Full Exam - General Ears/Nose/Throat oral cavity/pharynx/larynx Overall: oral mucosa clear 07/26/2011 None Full Exam - General Ears/Nose/Throat oral cavity/pharynx/larynx Overall: oropharyngeal mucosa clear 07/26/2011 None Full Exam - General Respiratory auscultation Overall: breath sounds clear bilaterally 07/26/2011 None Full Exam - General Respiratory auscultation Diffuse: a normal exam 07/26/2011 None Full Exam - General Respiratory auscultation Left upper lung field: a normal exam 07/26/2011 None Full Exam - General Respiratory auscultation Left lower lung field: a normal exam 07/26/2011 None Full Exam - General Abdomen abdominal exam Right upper quadrant: non-tender to palpation 07/26/2011 None Full Exam - General Abdomen abdominal exam Right upper quadrant: soft 07/26/2011 None Full Exam - General Respiratory auscultation Right upper lung field: a normal exam 07/26/2011 None Full Exam - General Respiratory auscultation Right middle lung field: a normal exam 07/26/2011 None Full Exam - General Respiratory auscultation Right lower lung field: a normal exam 07/26/2011 None Full Exam - General Respiratory respiratory effort/rhythm Overall: no retractions 07/26/2011 None Full Exam - General Respiratory respiratory effort/rhythm Overall: normal rate 07/26/2011 None Full Exam - General Respiratory respiratory effort/rhythm Rate: a normal exam 07/26/2011 None Full Exam - General Respiratory respiratory effort/rhythm Rhythm: a normal exam 07/26/2011 None Full Exam - General Cardiovascular auscultation of heart Overall: regular rate 07/26/2011 None Full Exam - General Cardiovascular extremities Overall: no clubbing 07/26/2011 None Full Exam - General Abdomen abdominal exam Left upper quadrant: non-tender to palpation 07/26/2011 None Full Exam - General Abdomen abdominal exam Left upper quadrant: soft 07/26/2011 None Full Exam - General Abdomen abdominal exam Left lower quadrant: non-tender to palpation 07/26/2011 None Full Exam - General Abdomen abdominal exam Right lower quadrant: non-tender to palpation 07/26/2011 None Full Exam - General Abdomen abdominal exam Right lower quadrant: soft 07/26/2011 None Full Exam - General Abdomen abdominal exam Epigastric: tender to palpation 07/26/2011 None Full Exam - General Abdomen abdominal exam Epigastric: no guarding 07/26/2011 None Full Exam - General Abdomen abdominal exam Epigastric: no rebound tenderness 07/26/2011 None Full Exam - General Musculoskeletal gait and station Overall: normal gait 07/26/2011 None Full Exam - General Musculoskeletal gait and station Overall: normal station 07/26/2011 None Full Exam - General Neurologic cranial nerves Overall: cranial nerves 1-12 intact 07/26/2011 None Full Exam - General Neurologic cranial nerves CN 2-left eye: a normal exam 07/26/2011 None Full Exam - General Neurologic cranial nerves CN 2-right eye: a normal exam 07/26/2011 None Full Exam - General Neurologic cranial nerves Visual field: a normal exam 07/26/2011 None Full Exam - General Neurologic cranial nerves Left visual field: a normal exam 07/26/2011 None Full Exam - General Neurologic cranial nerves Right visual field: a normal exam 07/26/2011 None Full Exam - General Neurologic cranial nerves Pupillary size: Pupils equal 07/26/2011 None Full Exam - General Neurologic cranial nerves CN3,4,6: extraocular movements intact 07/26/2011 None Full Exam - General Neurologic cranial nerves CN7: a normal exam 07/26/2011 None Full Exam - General Neurologic cranial nerves CN12: a normal exam 07/26/2011 None Full Exam - General Psychiatric orientation/consciousness Overall: oriented to person, place and time 07/26/2011 None Full Exam - General Psychiatric orientation/consciousness Level of consciousness: alert 07/26/2011 None Full Exam - General Cardiovascular auscultation of heart S1: a normal exam 07/26/2011 None Full Exam - General Cardiovascular auscultation of heart S2: a normal exam 07/26/2011 None Full Exam - General Cardiovascular auscultation of heart Murmur: previously known murmur unchanged 07/26/2011 None Full Exam - General Cardiovascular auscultation of heart Systolic murmur grade: II/ 07/26/2011 None Full Exam - ENT Abdomen abdominal exam Overall: no tenderness 06/23/2011 None Full Exam - ENT Abdomen abdominal exam Overall: normal bowel sounds 06/23/2011 None Full Exam - ENT Cardiovascular auscultation of heart Systolic murmur grade: II/ 06/23/2011 None Full Exam - ENT Neurologic orientation Overall: oriented to person, place and time 06/23/2011 None Full Exam - ENT Constitutional general appearance Overall: well nourished 06/23/2011 None Full Exam - ENT Constitutional general appearance Overall: well developed 06/23/2011 None Full Exam - ENT Constitutional general appearance Overall: in no acute distress 06/23/2011 None Full Exam - ENT Ears/Nose/Throat otoscopic exam Left external auditory canal: a normal exam 06/23/2011 None Full Exam - ENT Ears/Nose/Throat otoscopic exam Right external auditory canal: a normal exam 06/23/2011 None Full Exam - ENT Ears/Nose/Throat otoscopic exam Left tympanic membrane: a normal exam 06/23/2011 None Full Exam - ENT Ears/Nose/Throat otoscopic exam Right tympanic membrane: a normal exam 06/23/2011 None Full Exam - ENT Face and Head palpation Left maxillary sinus: tender 06/23/2011 None Full Exam - ENT Face and Head palpation Right maxillary sinus: tender 06/23/2011 None Full Exam - ENT Face and Head palpation Left frontal sinus: tender 06/23/2011 None Full Exam - ENT Face and Head palpation Right frontal sinus: tender 06/23/2011 None Full Exam - ENT Respiratory auscultation Overall: breath sounds clear bilaterally 06/23/2011 None Full Exam - ENT Cardiovascular auscultation of heart Murmur: previously known murmur unchanged 06/23/2011 None Full Exam - General Neurologic cranial nerves Left visual field: a normal exam 06/07/2011 None Full Exam - General Neurologic cranial nerves Pupillary size: Pupils equal 06/07/2011 None Full Exam - General Neurologic cranial nerves CN7: a normal exam 06/07/2011 None Full Exam - General Neurologic cranial nerves Right visual field: a normal exam 06/07/2011 None Full Exam - General Neurologic cranial nerves Visual field: a normal exam 06/07/2011 None Full Exam - General Musculoskeletal gait and station Overall: normal gait 06/07/2011 None Full Exam - General Musculoskeletal gait and station Overall: normal station 06/07/2011 None Full Exam - General Respiratory auscultation Right upper lung field: a normal exam 06/07/2011 None Full Exam - General Respiratory auscultation Right middle lung field: a normal exam 06/07/2011 None Full Exam - General Respiratory auscultation Right lower lung field: a normal exam 06/07/2011 None Full Exam - General Respiratory auscultation Left lower lung field: a normal exam 06/07/2011 None Full Exam - General Respiratory auscultation Overall: breath sounds clear bilaterally 06/07/2011 None Full Exam - General Respiratory auscultation Left upper lung field: a normal exam 06/07/2011 None Full Exam - General Respiratory auscultation Diffuse: a normal exam 06/07/2011 None Full Exam - General Respiratory respiratory effort/rhythm Rhythm: a normal exam 06/07/2011 None Full Exam - General Psychiatric orientation/consciousness Overall: oriented to person, place and time 06/07/2011 None Full Exam - General Psychiatric orientation/consciousness Level of consciousness: alert 06/07/2011 None Full Exam - General Neurologic cranial nerves Overall: cranial nerves 1-12 intact 06/07/2011 None Full Exam - General Neurologic cranial nerves CN12: a normal exam 06/07/2011 None Full Exam - General Neurologic cranial nerves CN 2-right eye: a normal exam 06/07/2011 None Full Exam - General Neurologic cranial nerves CN 2-left eye: a normal exam 06/07/2011 None Full Exam - General Neurologic cranial nerves CN3,4,6: extraocular movements intact 06/07/2011 None Full Exam - General Respiratory respiratory effort/rhythm Rate: a normal exam 06/07/2011 None Full Exam - General Respiratory respiratory effort/rhythm Overall: no retractions 06/07/2011 None Full Exam - General Respiratory respiratory effort/rhythm Overall: normal rate 06/07/2011 None Full Exam - General Cardiovascular auscultation of heart Overall: regular rate 06/07/2011 None Full Exam - General Abdomen abdominal exam Epigastric: tender to palpation 06/07/2011 None Full Exam - General Constitutional general appearance Overall: in no acute distress 06/07/2011 None Full Exam - General Constitutional general appearance Overall: well developed 06/07/2011 None Full Exam - General Constitutional general appearance Overall: well nourished 06/07/2011 None Full Exam - General Ears/Nose/Throat lips /teeth/gingiva Overall: benign lips 06/07/2011 None Full Exam - General Ears/Nose/Throat lips /teeth/gingiva Overall: normal dentition 06/07/2011 None Full Exam - General Ears/Nose/Throat oral cavity/pharynx/larynx Overall: oral mucosa clear 06/07/2011 None Full Exam - General Ears/Nose/Throat oral cavity/pharynx/larynx Overall: oropharyngeal mucosa clear 06/07/2011 None Full Exam - General Cardiovascular auscultation of heart Overall: normal heart sounds 06/07/2011 None Full Exam - General Cardiovascular extremities Overall: no clubbing 06/07/2011 None Full Exam - General Abdomen abdominal exam Epigastric: no rebound tenderness 06/07/2011 None Full Exam - General Abdomen abdominal exam Epigastric: no guarding 06/07/2011 None Full Exam - General Abdomen abdominal exam Left upper quadrant: non-tender to palpation 06/07/2011 None Full Exam - General Abdomen abdominal exam Left lower quadrant: non-tender to palpation 06/07/2011 None Full Exam - General Abdomen abdominal exam Right upper quadrant: non-tender to palpation 06/07/2011 None Full Exam - General Abdomen abdominal exam Right lower quadrant: non-tender to palpation 06/07/2011 None Full Exam - General Abdomen abdominal exam Right lower quadrant: soft 06/07/2011 None Full Exam - General Abdomen abdominal exam Right upper quadrant: soft 06/07/2011 None Full Exam - General Abdomen abdominal exam Left lower quadrant: soft 06/07/2011 None Full Exam - General Abdomen abdominal exam Left upper quadrant: soft 06/07/2011 None Procedures Procedure Codes Date URINALYSIS NONAUTO W/O SCOPE CPT-4: 47186 10/27/2016 URINALYSIS NONAUTO W/O SCOPE CPT-4: 09049 05/12/2016 PNEUMOCOCCAL VACC 13 CURT IM Formatting Model/CDA Sections, Assigned to/Sera Rizo SNOMED CT: 37276643 CPT-4: 16065Fitjrnq 10/01/2015 ADMIN PNEUMOCOCCAL VACCINE SNOMED CT: 65622063 CPT-4: G0009 10/01/2015 DRAIN/INJECT JOINT/BURSA CPT-4: 40900 09/08/2014 TRIAMCINOLONE ACET INJ NOS CPT-4: J3301 09/08/2014 URINALYSIS NONAUTO W/O SCOPE CPT-4: 61192 06/09/2014 TRIAMCINOLONE ACET INJ NOS CPT-4: J3301 03/26/2014 DRAIN/INJECT JOINT/BURSA CPT-4: 41237 03/26/2014 URINALYSIS NONAUTO W/O SCOPE CPT-4: 89834 02/05/2014 ROUTINE VENIPUNCTURE CPT-4: 23145 12/03/2013 34540 EST. PATIENT, LEVEL III CPT-4: 82005 10/31/2013 TRIAMCINOLONE ACET INJ NOS CPT-4: J3301 10/31/2013 ROUTINE VENIPUNCTURE CPT-4: 57691 10/02/2013 ADMIN INFLUENZA VIRUS VAC CPT-4: G0008 08/20/2013 FLULAVAL VACC, 3 YRS & >, IM CPT-4: Q2036 08/20/2013 PRESCRIP TRANSMIT VIA ERX SY CPT-4: G8553 05/07/2013 PRESCRIP TRANSMIT VIA ERX SY CPT-4: G8553 04/11/2013 PRESCRIP TRANSMIT VIA ERX SY CPT-4: G8553 03/18/2013 ROUTINE VENIPUNCTURE CPT-4: 09802 01/17/2013 TRIAMCINOLONE ACET INJ NOS CPT-4: J3301 10/11/2012 DRAIN/INJECT JOINT/BURSA CPT-4: 23141 10/11/2012 DRAIN/INJECT JOINT/BURSA CPT-4: 69831 07/25/2012 TRIAMCINOLONE ACET INJ NOS CPT-4: J3301 07/25/2012 ROUTINE VENIPUNCTURE CPT-4: 55571 07/11/2012 PRESCRIP TRANSMIT VIA ERX SY CPT-4: G8553 06/13/2012 ROUTINE VENIPUNCTURE CPT-4: 57648 05/10/2012 THER/PROPH/DIAG INJ SC/IM CPT-4: 81171 03/20/2012 ROCEPHIN, PER 250 MG CPT-4: J0696 03/20/2012 TRIAMCINOLONE ACET INJ NOS CPT-4: J3301 03/20/2012 URINALYSIS NONAUTO W/O SCOPE CPT-4: 01603 03/05/2012 ROUTINE VENIPUNCTURE CPT-4: 56349 02/28/2012 TRIAMCINOLONE ACET INJ NOS CPT-4: J3301 02/28/2012 DRAIN/INJECT JOINT/BURSA CPT-4: 81390 02/28/2012 PRESCRIP TRANSMIT VIA ERX SY CPT-4: G8553 12/13/2011 PRESCRIP TRANSMIT VIA ERX SY CPT-4: G8553 12/05/2011 PRESCRIP TRANSMIT VIA ERX SY CPT-4: G8553 06/23/2011 Vital Signs Date Vital 08/22/2017 Blood Pressure 1: 142/70 Code : 8480-6 BMI: 20.8 Code : 62502-7 Heart Rate 1 : 67 bpm Height: 5'4" SpO2: 97% Weight: 121 lbs 07/26/2017 Blood Pressure 1: 142/68 Code : 8480-6 BMI: 20.6 Code : 45292-9 Heart Rate 1 : 54 bpm Height: 5'4" SpO2: 98% Weight: 120 lbs 06/27/2017 Blood Pressure 1: 140/60 Code : 8480-6 BMI: 22.3 Code : 88018-1 Heart Rate 1 : 55 bpm Height: 5'4" SpO2: 96% Weight: 130 lbs 05/23/2017 Blood Pressure 1: 140/80 Code : 8480-6 BMI: 22.5 Code : 65751-5 Heart Rate 1 : 86 bpm Height: 5'4" SpO2: 94% Weight: 131 lbs 05/10/2017 Blood Pressure 1: 138/84 Code : 8480-6 BMI: 22.7 Code : 15257-9 Heart Rate 1 : 80 bpm Height: 5'4" SpO2: 97% Weight: 132 lbs 04/27/2017 Blood Pressure 1: 144/84 Code : 8480-6 BMI: 23.1 Code : 48573-6 Heart Rate 1 : 97 bpm Height: 5'4" SpO2: 92% Weight: 134 lbs 8 oz 03/30/2017 Blood Pressure 1: 150/72 Code : 8480-6 BMI: 24.5 Code : 79218-5 Heart Rate 1 : 87 bpm Height: 5'4" SpO2: 98% Weight: 143 lbs 02/27/2017 Blood Pressure 1: 146/66 Code : 8480-6 BMI: 25.0 Code : 41283-6 Heart Rate 1 : 53 bpm Height: 5'4" SpO2: 94% Weight: 145 lbs 8 oz 01/20/2017 Blood Pressure 1: 152/76 Code : 8480-6 BMI: 24.8 Code : 52197-5 Heart Rate 1 : 59 bpm Height: 5'4" SpO2: 99% Weight: 144 lbs 8 oz 01/03/2017 Blood Pressure 1: 154/60 Code : 8480-6 BMI: 25.1 Code : 03666-6 Heart Rate 1 : 54 bpm Height: 5'4" SpO2: 93% Weight: 146 lbs 12/16/2016 Blood Pressure 1: 152/78 Code : 8480-6 BMI: 25.5 Code : 41755-1 Heart Rate 1 : 51 bpm Height: 5'4" SpO2: 95% Weight: 148 lbs 8 oz 12/02/2016 Blood Pressure 1: 200/80 Code : 8480-6 Heart Rate 1: 65 bpm SpO2: 96% Weight: 143 lbs 10/27/2016 Blood Pressure 1: 170/62 Code : 8480-6 BMI: 25.7 Code : 80686-9 Heart Rate 1 : 78 bpm Height: 5'4" SpO2: 91% Weight: 150 lbs 09/01/2016 Blood Pressure 1: 132/76 Code : 8480-6 BMI: 26.6 Code : 28257-0 Heart Rate 1 : 52 bpm Height: 5'4" SpO2: 94% Weight: 155 lbs 06/10/2016 Blood Pressure 1: 140/78 Code : 8480-6 BMI: 26.9 Code : 92871-4 Heart Rate 1 : 90 bpm Height: 5'4" SpO2: 96% Weight: 157 lbs 05/12/2016 Blood Pressure 1: 140/72 Code : 8480-6 BMI: 27.3 Code : 80062-1 Heart Rate 1 : 68 bpm Height: 5'4" SpO2: 93% Weight: 159 lbs 01/07/2016 Blood Pressure 1: 128/78 Code : 8480-6 BMI: 26.9 Code : 79343-1 Heart Rate 1 : 63 bpm Height: 5'4" Weight: 157 lbs 12/10/2015 Blood Pressure 1: 156/90 Code : 8480-6 Blood Pressure 1: 160/80 Code: 8480-6 BMI: 26.6 Code: 58342-1 Heart Rate 1: 72 bpm Height: 5'4" Weight: 155 lbs 12/03/2015 Blood Pressure 1: 140/70 Code : 8480-6 BMI: 26.8 Code : 92711-6 Heart Rate 1 : 63 bpm Height: 5'4" Respiratory Rate: 18 bpm SpO2: 98% Weight: 156 lbs 10/01/2015 Blood Pressure 1: 128/86 Code : 8480-6 BMI: 27.1 Code : 04010-5 Heart Rate 1 : 92 bpm Height: 5'4" SpO2: 87% Weight: 158 lbs 07/23/2015 Blood Pressure 1: 160/84 Code : 8480-6 BMI: 27.6 Code : 34589-1 Heart Rate 1 : 68 bpm Height: 5'4" SpO2: 94% Weight: 161 lbs 06/04/2015 Blood Pressure 1: 140/70 Code : 8480-6 BMI: 26.9 Code : 93709-9 Heart Rate 1 : 72 bpm Height: 5'4" SpO2: 96% Weight: 157 lbs 01/12/2015 Blood Pressure 1: 136/88 Code : 8480-6 Heart Rate 1: 60 bpm Weight: 160 lbs 01/02/2015 Blood Pressure 1: 136/76 Code : 8480-6 Heart Rate 1: 80 bpm Weight: 158 lbs 12/30/2014 Blood Pressure 1: 128/90 Code : 8480-6 BMI: 27.3 Code : 26564-8 Heart Rate 1 : 74 bpm Height: 5'4" Weight: 159 lbs 12/08/2014 Blood Pressure 1: 128/74 Code : 8480-6 BMI: 27.3 Code : 49241-6 Heart Rate 1 : 60 bpm Height: 5'4" Weight: 159 lbs 09/08/2014 Blood Pressure 1: 138/74 Code : 8480-6 BMI: 27.6 Code : 90166-9 Heart Rate 1 : 64 bpm Height: 5'4" Weight: 161 lbs 06/09/2014 Blood Pressure 1: 134/68 Code : 8480-6 BMI: 27.1 Code : 32118-4 Heart Rate 1 : 60 bpm Height: 5'4" Weight: 158 lbs 04/28/2014 Blood Pressure 1: 184/70 Code : 8480-6 BMI: 27.8 Code : 68196-9 Heart Rate 1 : 60 bpm Height: 5'4" SpO2: 97% Weight: 162 lbs 03/26/2014 Blood Pressure 1: 120/62 Code : 8480-6 BMI: 27.3 Code : 50753-6 Heart Rate 1 : 58 bpm Height: 5'4" Weight: 159 lbs 02/05/2014 Blood Pressure 1: 124/58 Code : 8480-6 BMI: 27.8 Code : 94687-5 Heart Rate 1 : 64 bpm Height: 5'4" Weight: 162 lbs 12/11/2013 Blood Pressure 1: 100/60 Code : 8480-6 BMI: 26.9 Code : 15610-1 Heart Rate 1 : 60 bpm Height: 5'4" Weight: 157 lbs 11/27/2013 Blood Pressure 1: 132/74 Code : 8480-6 BMI: 26.8 Code : 35207-1 Heart Rate 1 : 56 bpm Height: 5'4" SpO2: 94% Weight: 156 lbs 10/31/2013 Blood Pressure 1: 142/70 Code : 8480-6 BMI: 27.1 Code : 56926-9 Height: 5'4" SpO2: 94% Temperature: 36.7 (C) / 98.1 (F) Weight: 158 lbs 09/30/2013 Blood Pressure 1: 126/76 Code : 8480-6 BMI: 27.6 Code : 43794-1 Heart Rate 1 : 64 bpm Height: 5'4" Weight: 161 lbs 08/20/2013 Blood Pressure 1: 126/72 Code : 8480-6 BMI: 28.2 Code : 90254-0 Heart Rate 1 : 60 bpm Height: 5'4" Weight: 164 lbs 05/30/2013 Blood Pressure 1: 144/86 Code : 8480-6 Heart Rate 1: 66 bpm SpO2: 96% Weight: 169 lbs 05/07/2013 Blood Pressure 1: 138/66 Code : 8480-6 BMI: 29.5 Code : 28716-0 Heart Rate 1 : 62 bpm Height: 5'4" SpO2: 95% Weight: 172 lbs 04/11/2013 Blood Pressure 1: 166/68 Code : 8480-6 BMI: 29.4 Code : 89825-4 Heart Rate 1 : 60 bpm Height: 5'4" Weight: 171 lbs 03/18/2013 Blood Pressure 1: 158/88 Code : 8480-6 BMI: 29.4 Code : 82867-1 Heart Rate 1 : 66 bpm Height: 5'4" SpO2: 93% Weight: 171 lbs 02/14/2013 Blood Pressure 1: 164/70 Code : 8480-6 BMI: 28.8 Code : 18416-4 Heart Rate 1 : 54 bpm Height: 5'4" SpO2: 94% Weight: 168 lbs 01/17/2013 Blood Pressure 1: 152/78 Code : 8480-6 BMI: 27.6 Code : 45151-4 Heart Rate 1 : 62 bpm Height: 5'4" SpO2: 96% Weight: 161 lbs 12/27/2012 Blood Pressure 1: 178/82 Code : 8480-6 Blood Pressure 2: 170/80 Code: 8480-6 BMI: 28.2 Code: 41446-8 Heart Rate 1: 60 bpm Height: 5'4" SpO2: 96% Weight: 164 lbs 12/05/2012 Blood Pressure 1: 140/82 Code : 8480-6 Heart Rate 1: 95 bpm Respiratory Rate : 20 bpm SpO2: 85% Temperature: 37.0 (C) / 98.6 (F) Weight: 174 lbs 10/11/2012 Blood Pressure 1: 160/86 Code : 8480-6 Blood Pressure 2: 156/86 Code: 8480-6 Heart Rate 1: 72 bpm Respiratory Rate: 20 bpm Weight: 170 lbs 07/25/2012 Blood Pressure 1: 124/70 Code : 8480-6 Heart Rate 1: 60 bpm Weight: 169 lbs 07/11/2012 Blood Pressure 1: 156/62 Code : 8480-6 Heart Rate 1: 60 bpm Respiratory Rate : 16 bpm Weight: 170 lbs 06/13/2012 Blood Pressure 1: 146/64 Code : 8480-6 Heart Rate 1: 64 bpm Weight: 169 lbs 05/10/2012 Blood Pressure 1: 132/78 Code : 8480-6 Heart Rate 1: 85 bpm Respiratory Rate : 16 bpm SpO2: 95% Weight: 166 lbs 03/20/2012 Blood Pressure 1: 144/70 Code : 8480-6 Heart Rate 1: 66 bpm SpO2: 91% Weight: 171 lbs 02/28/2012 Blood Pressure 1: 136/62 Code : 8480-6 BMI: 29.0 Code : 76979-7 Heart Rate 1 : 68 bpm Height: 5'4" Respiratory Rate: 16 bpm Weight: 169 lbs 12/13/2011 Blood Pressure 1: 134/44 Code : 8480-6 BMI: 28.0 Code : 62119-8 Heart Rate 1 : 54 bpm Height: 5'4" Respiratory Rate: 16 bpm Weight: 163 lbs 12/05/2011 Blood Pressure 1: 148/60 Code : 8480-6 BMI: 28.2 Code : 42044-2 Heart Rate 1 : 76 bpm Height: 5'4" Respiratory Rate: 16 bpm Weight: 164 lbs 07/26/2011 Blood Pressure 1: 137/72 Code : 8480-6 Heart Rate 1: 69 bpm Weight: 177 lbs 06/23/2011 Blood Pressure 1: 154/64 Code : 8480-6 BMI: 31.4 Code : 52784-1 Heart Rate 1 : 70 bpm Height: 5'3" Respiratory Rate: 12 bpm Temperature: 36.4 ( C) / 97.6 (F) Weight: 177 lbs 06/07/2011 Blood Pressure 1: 138/66 Code : 8480-6 BMI: 30.8 Code : 16154-2 Heart Rate 1 : 72 bpm Height: 5'3" Respiratory Rate: 20 bpm Weight: 174 lbs Functional Status No Functional Status data History of Present Illness Symptom Name Status Result Effective Date Notes muscle weakness Location diffusely 08/22/2017 None muscle weakness Quality upper extremities 08/22/2017 None muscle weakness Quality lower extremities 08/22/2017 None muscle weakness Quality improving 08/22/2017 None fatigue Onset and Resolution ongoing 08/22/2017 None fatigue Pertinent Findings Denies depressed mood 08/22/2017 None abnormal bleeding and bruising Location in the gastrointestinal tract 08/22/2017 None abnormal bleeding and bruising Quality blood clots 08/22/2017 None abnormal bleeding and bruising Quality bright red blood 08/22/2017 None abnormal bleeding and bruising Onset of Symptom 1 weeks ago 08/22/2017 None abnormal bleeding and bruising Onset and Resolution resolved 08/22/2017 None abnormal bleeding and bruising Location in the gastrointestinal tract 07/26/2017 None abnormal bleeding and bruising Quality blood clots 07/26/2017 None abnormal bleeding and bruising Quality bright red blood 07/26/2017 None abnormal bleeding and bruising Quality constant 07/26/2017 None abnormal bleeding and bruising Onset and Resolution sudden in onset 07/26/2017 None abnormal bleeding and bruising Onset of Symptom 1 weeks ago 07/26/2017 None muscle weakness Location diffusely 06/27/2017 None muscle weakness Quality upper extremities 06/27/2017 None muscle weakness Quality lower extremities 06/27/2017 None muscle weakness Quality improving 06/27/2017 None fatigue Onset and Resolution ongoing 06/27/2017 None fatigue Pertinent Findings Denies depressed mood 06/27/2017 None fatigue Onset and Resolution ongoing 05/23/2017 None fatigue Onset of Symptom _ months ago 05/23/2017 None fatigue Frequency of Episodes daily 05/23/2017 None fatigue Pertinent Findings Denies depressed mood 05/23/2017 None fatigue Pertinent Findings Denies dizziness 05/23/2017 None abdominal pain Location diffusely 05/23/2017 None abdominal pain Quality aching 05/23/2017 None abdominal pain Onset of Symptom 1 weeks ago 05/23/2017 None abdominal pain Pertinent Findings Denies dysphagia 05/23/2017 None fatigue Onset and Resolution ongoing 05/10/2017 None fatigue Onset of Symptom _ months ago 05/10/2017 None fatigue Frequency of Episodes daily 05/10/2017 None fatigue Pertinent Findings Denies depressed mood 05/10/2017 None fatigue Pertinent Findings Denies dizziness 05/10/2017 None Hospital Follow Up _ gastrointestinal complaints 04/27/2017 None Hospital Follow Up _ Other: GI bleed 04/27/2017 None Hospital Follow Up _ pneumonia 04/27/2017 None Hospital Follow Up Quality acute illness 04/27/2017 None Hospital Follow Up Pertinent Findings Other: GI bleed 04/27/2017 None Hospital Follow Up _ Other: acute kidney injury and C.Diff following a laparoscopic cholecystectomy 03/30/2017 None Hospital Follow Up Quality acute illness 03/30/2017 None Hospital Follow Up Quality improving 03/30/2017 None Hospital Follow Up Onset of Symptom 12 days ago 03/30/2017 None skin lesion Quality acute 03/30/2017 None skin lesion Quality tender 03/30/2017 None skin lesion Onset and Resolution ongoing 03/30/2017 None skin lesion Location left foot 03/30/2017 (heel) diarrhea Quality intermittent 02/27/2017 None diarrhea Onset and Resolution ongoing 02/27/2017 None diarrhea Onset of Symptom months ago 02/27/2017 None diarrhea Frequency of Episodes daily 02/27/2017 (most) diarrhea Triggers no known associated factors 02/27/2017 None depression Quality chronic 02/27/2017 None depression Onset and Resolution ongoing 02/27/2017 None blood pressure followup Quality chronic 01/20/2017 None blood pressure followup Onset and Resolution ongoing 01/20/2017 None blood pressure followup Onset of Symptom during adulthood 01/20/2017 None blood pressure followup Blood Pressure Values not checking blood pressure at home 01/20/2017 None blood pressure followup Severity mild 01/20/2017 None blood pressure followup Frequency of Episodes unchanged 01/20/2017 None blood pressure followup Triggers no known associated factors 01/20/2017 None blood pressure followup Alleviating Factors medication 01/20/2017 None blood pressure followup Pertinent Findings Denies decreased energy 01/20/2017 None blood pressure followup Pertinent Findings Denies dizziness 01/20/2017 None blood pressure followup Pertinent Findings Denies dyspnea 01/20/2017 None blood pressure followup Pertinent Findings Denies edema 01/20/2017 None cough Location in the throat 01/03/2017 None cough Quality constant 01/03/2017 None cough Quality dry None cough Onset and Resolution sudden in onset 01/03/2017 None cough Onset of Symptom 1 weeks ago 01/03/2017 None cough Frequency of Episodes daily 01/03/2017 None sinus congestion Location frontal sinuses 01/03/2017 None sinus congestion Quality constant 01/03/2017 drainage sinus congestion Onset and Resolution sudden in onset 01/03/2017 None sinus congestion Onset of Symptom 1 weeks ago 01/03/2017 None blood pressure followup Quality chronic 12/16/2016 None blood pressure followup Onset and Resolution ongoing 12/16/2016 None blood pressure followup Onset of Symptom during adulthood 12/16/2016 None blood pressure followup Blood Pressure Values not checking blood pressure at home 12/16/2016 None blood pressure followup Severity mild 12/16/2016 None blood pressure followup Frequency of Episodes unchanged 12/16/2016 None blood pressure followup Triggers no known associated factors 12/16/2016 None blood pressure followup Alleviating Factors medication 12/16/2016 None blood pressure followup Pertinent Findings decreased energy 12/16/2016 None blood pressure followup Pertinent Findings dizziness 12/16/2016 None blood pressure followup Pertinent Findings Denies dyspnea 12/16/2016 None blood pressure followup Pertinent Findings Denies edema 12/16/2016 None blood pressure followup Quality chronic 12/02/2016 None blood pressure followup Onset and Resolution ongoing 12/02/2016 None blood pressure followup Onset of Symptom during adulthood 12/02/2016 None blood pressure followup Blood Pressure Values not checking blood pressure at home 12/02/2016 None blood pressure followup Severity mild 12/02/2016 None blood pressure followup Frequency of Episodes unchanged 12/02/2016 None blood pressure followup Triggers no known associated factors 12/02/2016 None blood pressure followup Alleviating Factors medication 12/02/2016 None blood pressure followup Pertinent Findings decreased energy 12/02/2016 None hypertension Quality chronic 10/27/2016 None hypertension Onset and Resolution gradual in onset 10/27/2016 None hypertension Blood Pressure Values not checking blood pressure at home 10/27/2016 None hypertension Severity not consistently severe symptoms, the symptoms fluctuate from no symptoms to anxiety and headaches 10/27/2016 None hypertension Frequency of Episodes daily 10/27/2016 None hypertension Significant Medical Conditions renal failure 10/27/2016 None hypertension Triggers no known associated factors 10/27/2016 None hypertension Alleviating Factors medication 10/27/2016 None hypertension Pertinent Findings Denies decreased energy 10/27/2016 None hypertension Pertinent Findings Denies dizziness 10/27/2016 None hypertension Pertinent Findings Denies dyspnea 10/27/2016 None hypertension Pertinent Findings Denies edema 10/27/2016 None hypertension Onset of Symptom during adulthood 10/27/2016 None hypertension Quality chronic 09/01/2016 None hypertension Onset and Resolution gradual in onset 09/01/2016 None hypertension Blood Pressure Values not checking blood pressure at home 09/01/2016 None hypertension Severity not consistently severe symptoms, the symptoms fluctuate from no symptoms to anxiety and headaches 09/01/2016 None hypertension Frequency of Episodes daily 09/01/2016 None hypertension Triggers no known associated factors 09/01/2016 None hypertension Alleviating Factors medication 09/01/2016 None hypertension Pertinent Findings Denies decreased energy 09/01/2016 None hypertension Pertinent Findings Denies dizziness 09/01/2016 None hypertension Pertinent Findings Denies dyspnea 09/01/2016 None hypertension Pertinent Findings Denies edema 09/01/2016 None hypertension Significant Medical Conditions renal failure 09/01/2016 None hypertension Quality chronic 06/10/2016 None hypertension Onset and Resolution gradual in onset 06/10/2016 None hypertension Blood Pressure Values not checking blood pressure at home 06/10/2016 None hypertension Severity not consistently severe symptoms, the symptoms fluctuate from no symptoms to anxiety and headaches 06/10/2016 None hypertension Frequency of Episodes daily 06/10/2016 None hypertension Triggers no known associated factors 06/10/2016 None hypertension Alleviating Factors medication 06/10/2016 None hypertension Pertinent Findings Denies decreased energy 06/10/2016 None hypertension Pertinent Findings Denies dizziness 06/10/2016 None hypertension Pertinent Findings Denies dyspnea 06/10/2016 None hypertension Pertinent Findings Denies edema 06/10/2016 None diarrhea Quality acute 05/12/2016 None diarrhea Onset and Resolution ongoing 05/12/2016 intermittent episodes of diarrhea diarrhea Onset of Symptom weeks ago 05/12/2016 off and on diarrhea Frequency of Episodes weekly 05/12/2016 None diarrhea Triggers activity 05/12/2016 eating sometimes triggers it diarrhea Pertinent Findings Denies cough 05/12/2016 None diarrhea Pertinent Findings cramping 05/12/2016 None diarrhea Pertinent Findings dyspepsia 05/12/2016 None hypertension Quality chronic 01/07/2016 None hypertension Onset and Resolution gradual in onset 01/07/2016 None hypertension Blood Pressure Values not checking blood pressure at home 01/07/2016 None hypertension Frequency of Episodes daily 01/07/2016 None hypertension Pertinent Findings decreased energy 01/07/2016 None hypertension Pertinent Findings Denies dizziness 01/07/2016 None hypertension Pertinent Findings Denies dyspnea 01/07/2016 None hypertension Pertinent Findings Denies edema 01/07/2016 None hypertension Severity not consistently severe symptoms, the symptoms fluctuate from no symptoms to anxiety and headaches 01/07/2016 None hypertension Triggers no known associated factors 01/07/2016 None hypertension Alleviating Factors medication 01/07/2016 None eye erythema Onset of Symptom 1 weeks ago 12/10/2015 None eye erythema Pertinent Findings Denies eye discharge 12/10/2015 None eye erythema Pertinent Findings eye pressure 12/10/2015 None eye erythema Pertinent Findings eyelid erythema 12/10/2015 None eye erythema Pertinent Findings use of eye drops 12/10/2015 None hypertension Quality chronic 12/03/2015 None hypertension Onset and Resolution gradual in onset 12/03/2015 None shortness of breath Quality intermittent 10/01/2015 None shortness of breath Quality worsening 10/01/2015 None shortness of breath Onset and Resolution ongoing 10/01/2015 None shortness of breath Limitation on Activities moderately limits activities 10/01/2015 None shortness of breath Pertinent Findings Denies back pain 10/01/2015 None shortness of breath Pertinent Findings Denies chest discomfort 10/01/2015 None shortness of breath Pertinent Findings increased work of breathing 10/01/2015 after ambulating shortness of breath Onset of Symptom during adulthood 10/01/2015 None shortness of breath Frequency of Episodes increasing 10/01/2015 None shortness of breath Triggers activity 10/01/2015 None hypertension Quality chronic 07/23/2015 None hypertension Pertinent Findings Denies decreased energy 07/23/2015 None hypertension Pertinent Findings Denies dizziness 07/23/2015 None hypertension Onset and Resolution ongoing 07/23/2015 None hypertension Onset of Symptom during adulthood 07/23/2015 None back pain Location in the left middle back area 06/04/2015 None back pain Location in the left upper back area 06/04/2015 None back pain Location in the midline of in the middle back area 06/04/2015 None back pain Location in the midline of in the upper back area 06/04/2015 None back pain Quality aching 06/04/2015 None back pain Limitation on Activities moderately limits activities 06/04/2015 None back pain Frequency of Episodes constant 06/04/2015 None back pain Triggers position change 06/04/2015 None back pain Alleviating Factors activity 06/04/2015 None back pain Exacerbating Factors exertion 06/04/2015 None back pain Exacerbating Factors activity 06/04/2015 None back pain Initial treatment medication 06/04/2015 Tylenol arm pain Location left arm 06/04/2015 None arm pain Quality dull pain 06/04/2015 None arm pain Onset of Symptom 1-2 weeks ago 06/04/2015 None arm pain Severity moderate 06/04/2015 None arm pain Pertinent Findings female 06/04/2015 None arm pain Pertinent Findings pain with movement 06/04/2015 None arm pain Pertinent Findings gait disturbance 06/04/2015 None back pain Location in the left middle back area 01/12/2015 None back pain Location in the left upper back area 01/12/2015 None back pain Location in the midline of in the middle back area 01/12/2015 None back pain Location in the midline of in the upper back area 01/12/2015 None back pain Quality aching 01/12/2015 None back pain Limitation on Activities moderately limits activities 01/12/2015 None back pain Frequency of Episodes constant 01/12/2015 None back pain Triggers position change 01/12/2015 None back pain Alleviating Factors activity 01/12/2015 None back pain Exacerbating Factors exertion 01/12/2015 None back pain Exacerbating Factors activity 01/12/2015 None back pain Initial treatment medication 01/12/2015 Tylenol shoulder pain Location superficial 01/12/2015 None shoulder pain Quality aching 01/12/2015 None shoulder pain Onset and Resolution sudden in onset 01/12/2015 None shoulder pain Onset of Symptom 1-2 weeks ago 01/12/2015 None shoulder pain Limitation on Activities does not limit activities 01/12/2015 None shoulder pain Frequency of Episodes unchanged 01/12/2015 None arm pain Location left arm 01/12/2015 None arm pain Quality dull pain 01/12/2015 None arm pain Onset of Symptom 1-2 weeks ago 01/12/2015 None arm pain Severity moderate 01/12/2015 None arm pain Pertinent Findings female 01/12/2015 None arm pain Pertinent Findings pain with movement 01/12/2015 None arm pain Pertinent Findings gait disturbance 01/12/2015 None back pain Location in the midline of in the middle back area 01/02/2015 None back pain Location in the midline of in the upper back area 01/02/2015 None back pain Quality aching 01/02/2015 None back pain Location in the left middle back area 01/02/2015 None back pain Location in the left upper back area 01/02/2015 None back pain Limitation on Activities moderately limits activities 01/02/2015 None back pain Frequency of Episodes constant 01/02/2015 None back pain Triggers position change 01/02/2015 None back pain Alleviating Factors activity 01/02/2015 None back pain Exacerbating Factors exertion 01/02/2015 None back pain Exacerbating Factors activity 01/02/2015 None back pain Initial treatment medication 01/02/2015 Tylenol back pain Mechanism of injury fall from height 01/02/2015 [address] arm pain Location left arm 01/02/2015 None arm pain Quality dull pain 01/02/2015 None arm pain Onset of Symptom 1-2 weeks ago 01/02/2015 None arm pain Severity moderate 01/02/2015 None arm pain Pertinent Findings female 01/02/2015 None arm pain Pertinent Findings pain with movement 01/02/2015 None arm pain Pertinent Findings gait disturbance 01/02/2015 None shoulder pain Location superficial 01/02/2015 None shoulder pain Quality aching 01/02/2015 None shoulder pain Onset and Resolution sudden in onset 01/02/2015 None shoulder pain Onset of Symptom 1-2 weeks ago 01/02/2015 None shoulder pain Limitation on Activities does not limit activities 01/02/2015 None shoulder pain Frequency of Episodes unchanged 01/02/2015 None arm pain Location left arm 12/30/2014 None arm pain Onset of Symptom 1-2 weeks ago 12/30/2014 None arm pain Pertinent Findings female 12/30/2014 None arm pain Pertinent Findings pain with movement 12/30/2014 None arm pain Pertinent Findings gait disturbance 12/30/2014 None arm pain Quality dull pain 12/30/2014 None arm pain Severity moderate 12/30/2014 None hypertension Quality chronic 12/08/2014 None hypertension Blood Pressure Values patient checking blood pressure at home - did not bring in readings 12/08/2014 None hypertension Pertinent Findings Denies decreased energy 12/08/2014 None hypertension Pertinent Findings Denies dizziness 12/08/2014 None hypertension Pertinent Findings Denies dyspnea 12/08/2014 None hypertension Pertinent Findings Denies edema 12/08/2014 None hypertension Severity mild 12/08/2014 None hypertension Triggers no known associated factors 12/08/2014 None hypertension Alleviating Factors medication 12/08/2014 None hypertension Exacerbating Factors stress 12/08/2014 - pt has some social stress with family - and she states that right now she cannot keep the heat going in her house - hypertension Quality chronic 09/08/2014 None hypertension Blood Pressure Values patient checking blood pressure at home - did not bring in readings 09/08/2014 None hypertension Pertinent Findings Denies decreased energy 09/08/2014 None hypertension Pertinent Findings Denies dizziness 09/08/2014 None hypertension Pertinent Findings Denies dyspnea 09/08/2014 None hypertension Pertinent Findings Denies edema 09/08/2014 None ankle pain Location on the right 09/08/2014 None ankle pain Quality improving 09/08/2014 None ankle pain Quality intermittent 09/08/2014 None ankle pain Severity mild 09/08/2014 None ankle pain Significant Medical Conditions degenerative joint disease 09/08/2014 None ankle pain Pertinent Findings decreased range of motion 09/08/2014 None ankle pain Pertinent Findings numbness 09/08/2014 None knee pain Pertinent Findings stiffness 09/08/2014 None knee pain Pertinent Findings Denies swelling 09/08/2014 None knee pain Pertinent Findings weakness 09/08/2014 None hypertension Quality chronic 06/09/2014 None hypertension Blood Pressure Values patient checking blood pressure at home - did not bring in readings 06/09/2014 None hypertension Pertinent Findings Denies decreased energy 06/09/2014 None hypertension Pertinent Findings Denies dizziness 06/09/2014 None hypertension Pertinent Findings Denies dyspnea 06/09/2014 None hypertension Pertinent Findings Denies edema 06/09/2014 None ankle pain Location on the right 06/09/2014 None ankle pain Severity mild 06/09/2014 None ankle pain Significant Medical Conditions degenerative joint disease 06/09/2014 None ankle pain Pertinent Findings decreased range of motion 06/09/2014 None ankle pain Pertinent Findings numbness 06/09/2014 None ankle pain Quality improving 06/09/2014 None ankle pain Quality intermittent 06/09/2014 None hypertension Blood Pressure Values patient checking blood pressure at home - did not bring in readings 04/28/2014 None hypertension Quality chronic 04/28/2014 None hypertension Pertinent Findings Denies decreased energy 04/28/2014 None hypertension Pertinent Findings Denies dizziness 04/28/2014 None hypertension Pertinent Findings Denies dyspnea 04/28/2014 None hypertension Pertinent Findings edema 04/28/2014 None ankle pain Location on the right 04/28/2014 None ankle pain Quality constant 04/28/2014 None ankle pain Quality aching 04/28/2014 None ankle pain Pertinent Findings decreased range of motion 04/28/2014 None ankle pain Pertinent Findings numbness 04/28/2014 None ankle pain Severity mild 04/28/2014 None ankle pain Significant Medical Conditions degenerative joint disease 04/28/2014 None ankle pain Initial treatment elevation 04/28/2014 None hypertension Blood Pressure Values patient checking blood pressure at home - did not bring in readings 03/26/2014 pt states been on the low side hip pain Quality worsening 03/26/2014 None hip pain Radiating radiates down the leg to the foot 03/26/2014 None hip pain Pertinent Findings pain at rest 03/26/2014 None hip pain Pertinent Findings pain with movement 03/26/2014 None hip pain Location on the right 03/26/2014 - pt states that she fell about 3 weeks ago- landed on the left side, but the pain on her right side has been getting progressively worse. She notes that her right knee has been hurting her for about a year, but the pain worsened after she fell and her pain goes from her hip down to her foot. hypertension Quality chronic 03/26/2014 None hypertension Onset and Resolution ongoing 03/26/2014 None hypertension Onset of Symptom during adulthood 03/26/2014 None hypertension Triggers no known associated factors 03/26/2014 None hypertension Pertinent Findings Denies decreased energy 03/26/2014 None hypertension Pertinent Findings Denies dizziness 03/26/2014 None hypertension Pertinent Findings Denies dyspnea 03/26/2014 None hypertension Pertinent Findings Denies edema 03/26/2014 None hip pain Severity severe 03/26/2014 None hip pain Significant Medical Conditions advancing age 0603/26/2014 None hypertension Blood Pressure Values patient checking blood pressure at home - did not bring in readings 02/05/2014 None hypertension Pertinent Findings Denies dizziness 02/05/2014 None hypertension Pertinent Findings Denies dyspnea 02/05/2014 None hypertension Pertinent Findings edema 02/05/2014 None hypertension Pertinent Findings Denies palpitations 02/05/2014 None hypertension Pertinent Findings Denies tachycardia 02/05/2014 None foot pain Location on the left 02/05/2014 None foot pain Location on the right 02/05/2014 None foot pain Quality intermittent 02/05/2014 None foot pain Pertinent Findings swelling 02/05/2014 None foot pain Pertinent Findings stiffness 02/05/2014 None foot pain Pertinent Findings Denies redness 02/05/2014 None dysuria Quality acute 02/05/2014 None dysuria Onset and Resolution ongoing 02/05/2014 None dysuria Onset of Symptom 3-4 days ago 02/05/2014 None foot pain Quality chronic 02/05/2014 pt states that her foot pain is worst after she has been active and up on her feet a lot. - Pt sees for her podiatry needs. foot pain Severity moderate 02/05/2014 None hypertension Quality chronic 12/11/2013 None hypertension Blood Pressure Values patient checking blood pressure at home - did not bring in readings 12/11/2013 None hypertension Pertinent Findings Denies edema 12/11/2013 None hypertension Pertinent Findings Denies dyspnea 12/11/2013 None hypertension Pertinent Findings Denies dizziness 12/11/2013 None hypertension Pertinent Findings Denies decreased energy 12/11/2013 None hypertension Onset and Resolution ongoing 12/11/2013 None hypertension Onset of Symptom during adulthood 12/11/2013 None hypertension Significant Family History heart disease 12/11/2013 None hypertension Triggers no known associated factors 12/11/2013 None hypertension Blood Pressure Values patient checking blood pressure at home - did not bring in readings 11/27/2013 None hypertension Pertinent Findings Denies dizziness 11/27/2013 None hypertension Pertinent Findings Denies dyspnea 11/27/2013 None hypertension Pertinent Findings edema 11/27/2013 None hypertension Onset and Resolution ongoing 11/27/2013 None hypertension Quality chronic 11/27/2013 None hypertension Onset of Symptom during adulthood 11/27/2013 None hypertension Severity mild 11/27/2013 None hypertension Significant Medical Conditions cardiac disease 11/27/2013 None weight loss Quality intermittent 10/31/2013 None weight loss Onset and Resolution gradual in onset 10/31/2013 None weight loss Weight Status has lost 12 pounds in past year 10/31/2013 None cough Location in the lung 10/31/2013 None cough Quality acute None cough Onset of Symptom 1 weeks ago 10/31/2013 None cough Pertinent Findings chest discomfort 10/31/2013 None cough Pertinent Findings fever 10/31/2013 None cough Pertinent Findings nasal congestion 10/31/2013 None cough Pertinent Findings sputum production 10/31/2013 occ yellow production cough Onset and Resolution ongoing 10/31/2013 None cough Significant Medical Conditions pulmonary disease 10/31/2013 None cough Significant Medications albuterol 10/31/2013 None cough Triggers no known associated factors 10/31/2013 None cough Alleviating Factors inhaled medications 10/31/2013 None cough Pertinent Findings dyspnea 10/31/2013 None hypertension Quality chronic 09/30/2013 None hypertension Quality stable 09/30/2013 None hypertension Onset and Resolution ongoing 09/30/2013 None hypertension Blood Pressure Values patient checking blood pressure at home - did not bring in readings 09/30/2013 None hypertension Pertinent Findings dyspnea 09/30/2013 None hypertension Pertinent Findings Denies dizziness 09/30/2013 None hypertension Pertinent Findings Denies edema 09/30/2013 None hypertension Pertinent Findings Denies palpitations 09/30/2013 None hypertension Pertinent Findings Denies orthostatic hypotension 09/30/2013 None hypertension Severity mild 09/30/2013 None hypertension Quality chronic 08/20/2013 None hypertension Onset and Resolution ongoing 08/20/2013 None hypertension Severity not consistently severe symptoms, the symptoms fluctuate from no symptoms to anxiety and headaches 08/20/2013 None hypertension Alleviating Factors medication 08/20/2013 None hypertension Blood Pressure Values not checking blood pressure at home 08/20/2013 None hypertension Significant Medical Conditions renal failure 08/20/2013 None hypertension Triggers no known associated factors 08/20/2013 None pruritus Location-Major on the arms 05/30/2013 None pruritus Quality acute 05/30/2013 None pruritus Quality intermittent 05/30/2013 None pruritus Quality dry 05/30/2013 None pruritus Quality pruritic 05/30/2013 None pruritus Color flesh-colored 05/30/2013 None pruritus Triggers outside 05/30/2013 None pruritus Triggers sun exposure 05/30/2013 None pruritus Onset and Resolution ongoing 05/30/2013 None pruritus Pertinent Findings itching 05/30/2013 None pruritus Pertinent Findings Denies pain 05/30/2013 None cough Quality productive 05/30/2013 --Resolved cough Triggers no known associated factors 05/30/2013 None cough Pertinent Findings Denies chest discomfort 05/30/2013 None cough Pertinent Findings dyspnea 05/30/2013 --Resolved cough Pertinent Findings sputum production 05/30/2013 --Resolved cough Location in the throat 05/07/2013 None cough Quality productive 05/07/2013 None cough Onset and Resolution gradual in onset 05/07/2013 None cough Onset of Symptom 3 days ago 05/07/2013 None cough Pertinent Findings Denies chest discomfort 05/07/2013 None cough Pertinent Findings dyspnea 05/07/2013 None cough Pertinent Findings sputum production 05/07/2013 None cough Triggers no known associated factors 05/07/2013 None back pain Location lumbar-sacral spine 04/11/2013 None back pain Quality acute 04/11/2013 fell off step stool march 26, fell again april 01 outside at home. back pain Quality sharp 04/11/2013 states both hips hurt also [place] right back pain Frequency of Episodes constant 04/11/2013 None back pain Onset and Resolution acute 04/11/2013 None back pain Onset and Resolution ongoing 04/11/2013 None back pain Pertinent Findings Denies chills 04/11/2013 None back pain Pertinent Findings Denies muscle strain 04/11/2013 None back pain Pertinent Findings osteoarthritis 04/11/2013 None back pain Pertinent Findings post-trauma 04/11/2013 from fall at home on March 26 and April 01 both times at home. hypertension Quality chronic 03/18/2013 None hypertension Onset and Resolution ongoing 03/18/2013 None hypertension Blood Pressure Values patient checking blood pressure at home - did not bring in readings 03/18/2013 patient states BP has been elevated hypertension Alleviating Factors medication 03/18/2013 None hypertension Pertinent Findings Denies weight loss 03/18/2013 None hypertension Pertinent Findings Denies palpitations 03/18/2013 None hypertension Pertinent Findings Denies orthostatic hypotension 03/18/2013 None hypertension Pertinent Findings Denies tachycardia 03/18/2013 None hypertension Pertinent Findings Denies nervousness 03/18/2013 None hypertension Pertinent Findings Denies dizziness 03/18/2013 None hypertension Pertinent Findings Denies nausea 03/18/2013 None hypertension Pertinent Findings Denies lethargy 03/18/2013 None hypertension Severity not consistently severe symptoms, the symptoms fluctuate from no symptoms to anxiety and headaches 03/18/2013 None hypertension Pertinent Findings Denies anxiety 03/18/2013 None hypertension Pertinent Findings Denies edema 03/18/2013 None blood pressure followup Quality chronic 02/14/2013 None blood pressure followup Onset and Resolution ongoing 02/14/2013 None blood pressure followup Onset of Symptom during adulthood 02/14/2013 None blood pressure followup Severity mild 02/14/2013 None blood pressure followup Significant Family History heart disease 02/14/2013 None blood pressure followup Significant Medical Conditions cardiac disease 02/14/2013 None blood pressure followup Pertinent Findings anxiety 02/14/2013 None blood pressure followup Pertinent Findings Denies dizziness 02/14/2013 None blood pressure followup Pertinent Findings Denies decreased energy 02/14/2013 None blood pressure followup Pertinent Findings Denies edema 02/14/2013 None hypertension Onset and Resolution ongoing 01/17/2013 None hypertension Quality chronic 01/17/2013 None hypertension Pertinent Findings orthostatic hypotension 01/17/2013 None hypertension Pertinent Findings Denies palpitations 01/17/2013 None hypertension Blood Pressure Values pt checking blood pressure - see scanned document 01/17/2013 None diarrhea Quality acute 01/17/2013 None diarrhea Onset of Symptom 1 weeks ago 01/17/2013 None diarrhea Onset and Resolution sudden in onset 01/17/2013 None diarrhea Pertinent Findings nausea 01/17/2013 states it makes her sick to think of food. trying to stay hydrated. diarrhea Limitation on Activities does not limit activities 01/17/2013 None diarrhea Frequency of Episodes 4-6 stools per day 01/17/2013 None diarrhea Ill Contacts sick individuals 01/17/2013 None hypertension Onset of Symptom during adulthood 01/17/2013 None hypertension Severity not consistently severe symptoms, the symptoms fluctuate from no symptoms to anxiety and headaches 01/17/2013 None hypertension Frequency of Episodes unchanged 01/17/2013 None hypertension Triggers no known associated factors 01/17/2013 None hypertension Alleviating Factors medication 01/17/2013 None hypertension Quality chronic 12/27/2012 None hypertension Onset and Resolution ongoing 12/27/2012 None hypertension Blood Pressure Values patient checking blood pressure at home - did not bring in readings 12/27/2012 None hypertension Severity not consistently severe symptoms, the symptoms fluctuate from no symptoms to anxiety and headaches 12/27/2012 None hypertension Frequency of Episodes unchanged 12/27/2012 None Hospital Follow Up Quality acute illness 12/27/2012 None Hospital Follow Up Onset of Symptom 3 weeks ago 12/27/2012 hosp f/u pneumonia, shingles. Denies any pain, States still coughing some but better hypertension Triggers no known associated factors 12/27/2012 None hypertension Alleviating Factors medication 12/27/2012 None hypertension Pertinent Findings Denies anxiety 12/27/2012 None hypertension Pertinent Findings Denies confusion 12/27/2012 None hypertension Pertinent Findings Denies edema 12/27/2012 None hypertension Pertinent Findings Denies nausea 12/27/2012 None hypertension Pertinent Findings Denies palpitations 12/27/2012 None chest congestion Quality acute 12/05/2012 None chest congestion Pertinent Findings cough 12/05/2012 None chest congestion Pertinent Findings decreased energy 12/05/2012 None chest congestion Pertinent Findings dyspnea 12/05/2012 None chest congestion Pertinent Findings nasal congestion 12/05/2012 None chest congestion Pertinent Findings sputum production 12/05/2012 None chest congestion Onset of Symptom 3 days ago 12/05/2012 None chest congestion Onset and Resolution gradual in onset 12/05/2012 None chest congestion Severity mild 12/05/2012 None Hospital Follow Up Quality chronic illness 12/05/2012 ventral hernia - repaired by Dr. Butler Hospital Follow Up Severity mild 12/05/2012 None chest congestion Triggers ill contacts 12/05/2012 bk DX with influenza knee pain Location on the right 10/11/2012 None knee pain Limitation on Activities moderately limits activities 10/11/2012 None knee pain Onset and Resolution worse during the day 10/11/2012 worse when moving, getting out of chair/car, going up stairs hypertension Quality chronic 10/11/2012 None hypertension Onset and Resolution ongoing 10/11/2012 None hypertension Blood Pressure Values not checking blood pressure at home 10/11/2012 None hypertension Blood Pressure Values Stage 0:SBP 130-139 mmHg / DBP 85-89 mmHg 10/11/2012 None hypertension Severity mild 10/11/2012 None hypertension Significant Medical Conditions cardiac disease 10/11/2012 None hypertension Alleviating Factors medication 10/11/2012 None hypertension Pertinent Findings Denies anxiety 10/11/2012 None hypertension Pertinent Findings Denies confusion 10/11/2012 None hypertension Pertinent Findings Denies decreased energy 10/11/2012 None hypertension Pertinent Findings Denies dizziness 10/11/2012 None knee pain Quality grinding 10/11/2012 None knee pain Quality constant 10/11/2012 None knee pain Significant Medical Conditions degenerative joint disease 10/11/2012 None knee pain Alleviating Factors non weight bearing 10/11/2012 None knee pain Exacerbating Factors flexion of the knee 10/11/2012 None knee pain Exacerbating Factors weight bearing 10/11/2012 None knee pain Pertinent Findings Denies bruising 10/11/2012 None knee pain Pertinent Findings decreased range of motion 10/11/2012 None knee pain Pertinent Findings limping 10/11/2012 None knee pain Pertinent Findings instability 10/11/2012 None knee pain Pertinent Findings pain with movement 10/11/2012 None knee pain Pertinent Findings sensation of buckling 10/11/2012 None knee pain Pertinent Findings weakness 10/11/2012 None anxiety Quality chronic 10/11/2012 None anxiety Onset of Symptom during adulthood 10/11/2012 None low back and leg pain Quality aching 07/25/2012 None low back and leg pain Quality acute 07/25/2012 None low back and leg pain Onset and Resolution ongoing 07/25/2012 None low back and leg pain Onset of Symptom 2 days ago 07/25/2012 None low back and leg pain Limitation on Activities allows weight bearing activity 07/25/2012 with pain low back and leg pain Severity moderate 07/25/2012 None low back and leg pain Extent of Symptoms stiffness 07/25/2012 None low back and leg pain Extent of Symptoms gait disturbance 07/25/2012 unsteady low back and leg pain Frequency of Episodes decreasing 07/25/2012 states she is better today than yesterday low back and leg pain Significant Medications NSAID's 07/25/2012 took 2 tylenol last night and that took the pain away low back and leg pain Mechanism of injury twisting 07/25/2012 started hurting after mopping the floor yesterday low back and leg pain Initial treatment medication 07/25/2012 None low back and leg pain Triggers activity 07/25/2012 None low back and leg pain Location in the right lower back area 07/25/2012 states her back is fine-her right knee is bothering her after mopping yesterday. Chronic right knee pain. anemia Onset and Resolution ongoing 07/11/2012 None anemia Onset of Symptom during adulthood 07/11/2012 None anemia Significant Medical Conditions renal disease 07/11/2012 None anemia Triggers no known associated factors 07/11/2012 None anxiety Quality chronic 07/11/2012 None anxiety Onset and Resolution ongoing 07/11/2012 states she is concerned about her anxiety Onset of Symptom during adulthood 07/11/2012 None anxiety Frequency of Episodes increasing 07/11/2012 None anxiety Triggers stress 07/11/2012 with terminal lung cancer hypertension Quality chronic 07/11/2012 None hypertension Onset and Resolution ongoing 07/11/2012 None hypertension Blood Pressure Values patient checking blood pressure at home - did not bring in readings 07/11/2012 None hypertension Pertinent Findings Denies dyspnea 07/11/2012 None hypertension Pertinent Findings Denies edema 07/11/2012 None anxiety Quality chronic 06/13/2012 None anxiety Onset and Resolution ongoing 06/13/2012 states she is concerned about her hypertension Quality chronic 06/13/2012 None hypertension Onset and Resolution ongoing 06/13/2012 None hypertension Blood Pressure Values patient checking blood pressure at home - did not bring in readings 06/13/2012 None hypertension Pertinent Findings Denies dyspnea 06/13/2012 None hypertension Pertinent Findings Denies edema 06/13/2012 None anemia Onset and Resolution ongoing 06/13/2012 None anemia Onset of Symptom during adulthood 06/13/2012 None anemia Significant Medical Conditions renal disease 06/13/2012 None anemia Triggers no known associated factors 06/13/2012 None anxiety Onset of Symptom during adulthood 06/13/2012 None anxiety Frequency of Episodes increasing 06/13/2012 None anxiety Triggers stress 06/13/2012 with terminal lung cancer hypertension Quality chronic 05/10/2012 None hypertension Onset and Resolution ongoing 05/10/2012 None hypertension Blood Pressure Values not checking blood pressure at home 05/10/2012 None hyperlipidemia Onset and Resolution ongoing 05/10/2012 None hypertension Blood Pressure Values Stage 0:SBP 130-139 mmHg / DBP 85-89 mmHg 05/10/2012 None hypertension Severity mild 05/10/2012 None hypertension Alleviating Factors medication 05/10/2012 None hypertension Pertinent Findings Denies anxiety 05/10/2012 None hypertension Pertinent Findings Denies confusion 05/10/2012 None hypertension Pertinent Findings Denies dizziness 05/10/2012 None hypertension Pertinent Findings Denies decreased energy 05/10/2012 None hypertension Significant Medical Conditions cardiac disease 05/10/2012 None hyperlipidemia Severity mild 05/10/2012 None hyperlipidemia Significant Medications statin 05/10/2012 None hyperlipidemia Alleviating Factors medication 05/10/2012 None hyperlipidemia Exacerbating Factors diet 05/10/2012 None hyperlipidemia Pertinent Findings Denies obesity 05/10/2012 None hyperlipidemia Pertinent Findings Denies polyuria 05/10/2012 None hyperlipidemia Pertinent Findings Denies edema 05/10/2012 None ecchymosis Location on the left cheek 03/20/2012 None ecchymosis Quality acute 03/20/2012 None ecchymosis Onset and Resolution ongoing 03/20/2012 None ecchymosis Onset of Symptom 1 days ago 03/20/2012 None ecchymosis Severity mild 03/20/2012 States last night she got up to go to the bathroom and tripped over a suitcase, hitting her left cheek on the floor. States she didn't pass out. Denies vision change, headache, nausea or vomiting. ecchymosis Triggers antecedent trauma 03/20/2012 None dysuria Quality burning 03/05/2012 with freq knee pain Quality popping 02/28/2012 None knee pain Quality chronic 02/28/2012 None blood pressure followup Onset and Resolution ongoing 02/28/2012 None blood pressure followup Onset of Symptom during adulthood 02/28/2012 None blood pressure followup Blood Pressure Values pt checking blood pressure - see scanned document 02/27 None blood pressure followup Severity mild 02/28/2012 None blood pressure followup Frequency of Episodes unchanged 02/28/2012 None blood pressure followup Triggers pt checking blood pressure - see scanned document 02/28/2012 None blood pressure followup Alleviating Factors medication 02/28/2012 None knee pain Location in the anterior region 02/28/2012 None knee pain Location posterior to the patella 02/28/2012 right knee knee pain Onset of Symptom 4+ months ago 02/28/2012 None knee pain Limitation on Activities allows weight bearing activity 02/28/2012 None knee pain Limitation on Activities unable to perform any activities without pain 02/28/2012 None knee pain Severity moderate 02/28/2012 None knee pain Significant Medical Conditions degenerative joint disease 02/28/2012 None knee pain Pertinent Findings clicking 02/28/2012 None knee pain Pertinent Findings Denies bruising 02/28/2012 None knee pain Pertinent Findings limping 02/28/2012 None knee pain Pertinent Findings pain with movement 02/28/2012 None knee pain Pertinent Findings stiffness 02/28/2012 None knee pain Exacerbating Factors weight bearing 02/28/2012 None knee pain Exacerbating Factors flexion of the knee 02/28/2012 None knee pain Alleviating Factors non weight bearing 02/28/2012 None blood pressure followup Blood Pressure Values pt checking blood pressure - see scanned document 12/13 None constipation Quality every other day 12/13/2011 None constipation Quality small stools 12/13/2011 None constipation Alleviating Factors laxatives 12/13/2011 None constipation Onset and Resolution ongoing 12/13/2011 None constipation Severity moderate 12/13/2011 None constipation Frequency of Episodes increasing 12/13/2011 None constipation Triggers no known associated factors 12/13/2011 None blood pressure followup Onset and Resolution ongoing 12/13/2011 None blood pressure followup Onset of Symptom during adulthood 12/13/2011 None blood pressure followup Severity mild 12/13/2011 None blood pressure followup Frequency of Episodes unchanged 12/13/2011 None blood pressure followup Triggers pt checking blood pressure - see scanned document 12/13/2011 None blood pressure followup Alleviating Factors medication 12/13/2011 None sores Quality worsening 12/05/2011 None sores Onset and Resolution ongoing 12/05/2011 None sores Onset of Symptom 2 weeks ago 12/05/2011 None sores Severity mild None blood pressure followup Quality chronic 12/05/2011 None blood pressure followup Onset and Resolution ongoing 12/05/2011 None blood pressure followup Onset of Symptom during adulthood 12/05/2011 None blood pressure followup Blood Pressure Values not checking blood pressure at home 12/05/2011 None blood pressure followup Triggers no known associated factors 12/05/2011 None blood pressure followup Alleviating Factors medication 12/05/2011 None sores Location-Major in a generalized area 12/05/2011 inside left nare sores Quality acute None blood pressure followup Quality chronic 07/26/2011 None blood pressure followup Onset and Resolution ongoing 07/26/2011 None blood pressure followup Blood Pressure Values Stage 0:SBP 130-139 mmHg / DBP 85-89 mmHg 07/26/2011 None blood pressure followup Alleviating Factors medication 07/26/2011 None gastroesophageal reflux Quality chronic 07/26/2011 None gastroesophageal reflux Onset and Resolution ongoing 07/26/2011 None gastroesophageal reflux Severity moderate 07/26/2011 None gastroesophageal reflux Severity severe 07/26/2011 -has appointment with Dr. Wallace tomorrow to schedule hiatal hernia repair. gastroesophageal reflux Frequency of Episodes increasing 07/26/2011 None gastroesophageal reflux Diet solids 07/26/2011 None cough Location in the throat 06/23/2011 None cough Quality dry 05/2011 None cough Onset of Symptom 2 days ago 06/23/2011 None cough Alleviating Factors OTC medications 06/23/2011 cough syrup or benadryl at night sinus congestion Quality fullness 06/23/2011 None sinus congestion Onset of Symptom 2 days ago 06/23/2011 None gas and bloating Quality chronic 06/07/2011 None gas and bloating Location in the suprapubic area 06/07/2011 None gas and bloating Location in the periumbilical area 06/07/2011 None gas and bloating Onset and Resolution ongoing 06/07/2011 None abdominal pain Location in the periumbilical area 06/07/2011 None abdominal pain Location in the suprapubic area 06/07/2011 None abdominal pain Quality chronic 06/07/2011 None abdominal pain Quality aching 06/07/2011 None hypertension Quality chronic 06/07/2011 None hypertension Onset and Resolution ongoing 06/07/2011 None hypertension Blood Pressure Values Stage 0:SBP 130-139 mmHg / DBP 85-89 mmHg 06/07/2011 None hypertension Severity mild 06/07/2011 None hypertension Alleviating Factors medication 06/07/2011 None Advance Directives Advance Directives Present Encounters Encounter Performer Location Codes Date ([id number]) 55838 EST. PATIENT, LEVEL IV Diagnosis: Essential (primary) hypertension[ICD10: I10] Diagnosis: Anemia in chronic kidney disease[ICD10: D63.1] Diagnosis: Chronic kidney disease, stage 4 (severe)[ICD10: N18.4] Riana Garcia MD, [facility] CPT-4: 94563 08/22/2017 ([id number]) 47347 EST. PATIENT, LEVEL IV Diagnosis: Melena[ICD10: K92.1] Diagnosis: Hemorrhage of anus and rectum[ICD10: K62.5] Collette Garcia MD, [facility] CPT-4: 78041 07/26/2017 ([id number]) 85134 EST. PATIENT, LEVEL IV Diagnosis: Anemia in chronic kidney disease[ICD10: D63.1] Diagnosis: Essential (primary) hypertension[ICD10: I10] Diagnosis: Hypertensive chronic kidney disease with stage 1 through stage 4 chronic kidney disease, or unspecified chronic kidney disease[ICD10: I12.9] Riana Garcia MD, [facility] CPT-4: 62644 06/27/2017 ([id number]) 40489 EST. PATIENT, LEVEL IV Diagnosis: Functional diarrhea[ICD10: K59.1] Diagnosis: Chronic kidney disease, stage 3 (moderate)[ICD10: N18.3] Diagnosis: Localized edema[ICD10: R60.0] Diagnosis: Muscle weakness (generalized)[ICD10: M62.81] Riana Garcia MD, [facility] CPT-4: 46961 05/23/2017 ([id number]) 11134 EST. PATIENT, LEVEL IV Diagnosis: Essential (primary) hypertension[ICD10: I10] Diagnosis: Hypertensive chronic kidney disease with stage 1 through stage 4 chronic kidney disease, or unspecified chronic kidney disease[ICD10: I12.9] Diagnosis: Anemia in chronic kidney disease[ICD10: D63.1] Diagnosis: Mixed hyperlipidemia[ICD10: E78.2] Riana Garcia MD, [facility] CPT-4: 23072 05/10/[id number]) [id number] EST. PATIENT, LEVEL IV Diagnosis: Essential (primary) hypertension[ICD10: I10] Diagnosis: Other iron deficiency anemias[ICD10: D50.8] Diagnosis: Hypertensive chronic kidney disease with stage 1 through stage 4 chronic kidney disease, or unspecified chronic kidney disease[ICD10: I12.9] Riana Garcia MD, [facility] CPT-4: 02478 04/27/2017 [id number]) 06693 EST. 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 PATIENT, LEVEL IV Diagnosis: Essential (primary) hypertension[ICD10: I10] Diagnosis: Chronic kidney disease, stage 3 (moderate)[ICD10: N18.3] Diagnosis: Anemia in chronic kidney disease[ICD10: D63.1] Diagnosis: Major depressive disorder, single episode, unspecified[ICD10: F32.9] Diagnosis: Functional diarrhea[ICD10: K59.1] Riana Garcia MD, [facility] CPT-4: 70077 02/27/2017 [id number]) 13701 EST. PATIENT, LEVEL IV Diagnosis: Essential (primary) hypertension[ICD10: I10] Diagnosis: Abnormal weight loss[ICD10: R63.4] Diagnosis: Gastro-esophageal reflux disease without esophagitis[ICD10: K21.9] Karyna Garcia MD, [facility] CPT-4: 65207 01/20/2017 [id number] EST. PATIENT, LEVEL IV Diagnosis: Cough[ICD10: R05] Diagnosis: Pneumonia due to other specified infectious organisms[ICD10: J16.8] Collette Garcia MD, [facility] CPT-4: 84755 01/03/2017 ([id number]) 03137 EST. PATIENT, LEVEL III Diagnosis: Essential (primary) hypertension[ICD10: I10] Diagnosis: Abnormal weight loss[ICD10: R63.4] Karyna Garcia MD, [facility] CPT-4: 40752 12/16/2016 ([id number]) 88066 EST. PATIENT, LEVEL IV Diagnosis: Essential (primary) hypertension[ICD10: I10] Diagnosis: Abnormal weight loss[ICD10: R63.4] Diagnosis: Pneumonia, unspecified organism[ICD10: J18.9] Karyna Garcia MD, [facility] CPT-4: 39452 12/02/2016 ([id number]) 94282 EST. PATIENT, LEVEL IV Diagnosis: Essential (primary) hypertension[ICD10: I10] Diagnosis: Anemia in chronic kidney disease[ICD10: D63.1] Diagnosis: Urinary tract infection, site not specified[ICD10: N39.0] Karyna Garcia MD , [facility] CPT-4: 74701 10/27/2016 ([id number]) 55608 EST. PATIENT, LEVEL IV Diagnosis: Essential (primary) hypertension[ICD10: I10] Diagnosis: Hypoxemia[ICD10: R09.02] Diagnosis: Chronic obstructive pulmonary disease, unspecified[ICD10: J44.9] Karyna Garcia MD, [facility] CPT-4: 37247 09/01/2016 ([id number]) 61124 EST. PATIENT, LEVEL III Diagnosis: Essential (primary) hypertension[ICD10: I10] Diagnosis: Anemia in chronic kidney disease[ICD10: D63.1] Karyna Garcia MD, [facility] CPT-4: 52452 06/10/2016 ([id number]) 48875 EST. PATIENT, LEVEL IV Diagnosis: Essential (primary) hypertension[ICD10: I10] Diagnosis: Chronic kidney disease, stage 3 (moderate)[ICD10: N18.3] Diagnosis: Gastro-esophageal reflux disease without esophagitis[ICD10: K21.9] Diagnosis: Frequency of micturition[ICD10: R35.0] Diagnosis: Urinary tract infection, site not specified[ICD10: N39.0] Karyna Garcia MD , [facility] CPT-4: 53774 05/12/2016 ([id number]) 62447 EST. PATIENT, LEVEL IV Diagnosis: Essential (primary) hypertension[ICD10: I10] Diagnosis: Mixed hyperlipidemia[ICD10: E78.2] Diagnosis: Nonrheumatic aortic (valve) stenosis[ICD10: I35.0] Diagnosis: Chronic kidney disease, stage 3 (moderate)[ICD10: N18.3] Karyna Garcia MD , [facility] CPT-4: 03240 01/07/2016 ([id number]) 50943 EST. PATIENT, LEVEL IV Diagnosis: Essential (primary) hypertension[ICD10: I10] Diagnosis: Conjunctival hemorrhage, left eye[ICD10: H11.32] Diagnosis: Gastro-esophageal reflux disease without esophagitis[ICD10: K21.9] Karyna Garcia MD, [facility] CPT-4: 14186 12/10/2015 ([id number]) 14859 EST. PATIENT, LEVEL IV Diagnosis: Conjunctival hemorrhage, left eye[ICD10: H11.32] Diagnosis: Essential (primary) hypertension[ICD10: I10] Diagnosis: Chronic kidney disease, stage 3 (moderate)[ICD10: N18.3] Karyna Garcia MD , [facility] CPT-4: 85421 12/03/2015 ([id number]) 46237 EST. PATIENT, LEVEL IV Diagnosis: Essential (primary) hypertension[ICD10: I10] Diagnosis: Chronic obstructive pulmonary disease, unspecified[ICD10: J44.9] Diagnosis: Hypoxemia[ICD10: R09.02] Diagnosis: Major depressive disorder, single episode, unspecified[ICD10: F32.9] Diagnosis: Chronic kidney disease, stage 3 (moderate)[ICD10: N18.3] Diagnosis: Encounter for immunization[ICD10: Z23] Karyna Garcia MD, [facility] CPT-4: 75014 10/01/2015 ([id number]) 69974 EST. PATIENT, LEVEL III Diagnosis: Other secondary hypertension[ICD10: I15.8] Diagnosis: Chronic kidney disease, stage 3 (moderate)[ICD10: N18.3] Riana Garcia MD, [facility] CPT-4: 29369 07/23/2015 ([id number]) 37897 EST. PATIENT, LEVEL IV Diagnosis: ESSENTIAL HYPERTENSION[ICD9: 401.9] Diagnosis: HYPERLIPIDEMIA[ICD9: 272.4] Diagnosis: CHRONIC AIRWAY OBST NEC[ICD9: 496] Diagnosis: OSTEOARTH NOS-UNSPEC[ICD9: 715.90] Riana Garcia MD, [facility] CPT-4: 66485 06/04/2015 ([id number]) 23833 EST. PATIENT, LEVEL IV Diagnosis: Low back pain[ICD9: 724.2] Diagnosis: Osteoarthritis[ICD9: 715.90] Diagnosis: MUSCLE WEAKNESS-GENERAL[ICD9: 728.87] Diagnosis: Skin lesion[ICD9: 709.9] Riana Garcia MD, [facility] CPT-4: 49511 01/12/2015 ([id number]) 43455 EST. PATIENT, LEVEL III Diagnosis: Shoulder pain, acute[ICD9: 719.41] Diagnosis: Skin lesion[ICD9: 709.9] Diagnosis: Costochondral chest pain[ICD9: 786.52] Riana Garcia MD, [facility] CPT-4: 75920 01/02/2015 ([id number]) 63588 EST. PATIENT, LEVEL III Diagnosis: Shoulder pain, acute[ICD9: 719.41] Diagnosis: Skin lesion[ICD9: 709.9] Riana Garcia MD, [facility] CPT-4: 60531 12/30/2014 ([id number]) 32626 EST. PATIENT, LEVEL IV Diagnosis: ESSENTIAL HYPERTENSION[ICD9: 401.9] Diagnosis: DEPRESSIVE DISORDER NEC[ICD9: 311] Diagnosis: CHRONIC AIRWAY OBST NEC[ICD9: 496] Riana Garcia MD, [facility] CPT-4: 62857 12/08/2014 ([id number]) 82590 EST. PATIENT, LEVEL IV Diagnosis: OSTEOARTH NOS-UNSPEC[ICD9: 715.90] Diagnosis: Knee pain, right[ICD9: 719.46] Diagnosis: ESSENTIAL HYPERTENSION[ICD9: 401.9] Diagnosis: CHRONIC AIRWAY OBST NEC[ICD9: 496] Diagnosis: ANEMIA[ICD9: 285.9] Riana Garcia MD [facility] CPT-4: 30474 09/08/2014 ([id number]) 82583 EST. PATIENT, LEVEL III Diagnosis: ESSENTIAL HYPERTENSION[ICD9: 401.9] Diagnosis: Renal insufficiency[ICD9: 593.9] Diagnosis: Dysuria[ICD9: 788.1] Diagnosis: Ankle pain[ICD9: 719.47] Riana Garcia MD [facility] CPT-4: 71768 06/09/2014 ([id number]) 24232 EST. PATIENT, LEVEL IV Diagnosis: ESSENTIAL HYPERTENSION[ICD9: 401.9] Diagnosis: Ankle pain[ICD9: 719.47] Diagnosis: COPD (chronic obstructive pulmonary disease)[ICD9: 496] Riana Garcia MD [facility] CPT-4: 76684 04/28/2014 ([id number]) 51611 EST. PATIENT, LEVEL IV Diagnosis: Sciatica neuralgia[ICD9: 724.3] Diagnosis: Leg pain[ICD9: 729.5] Diagnosis: ESSENTIAL HYPERTENSION[SNOMED: [id number]] Riana Garcia MD [facility] CPT-4: 75588 03/26/2014 ([id number]) 31750 EST. PATIENT, LEVEL IV Diagnosis: ESSENTIAL HYPERTENSION[SNOMED: 67892076] Diagnosis: History of urinary tract infection[ICD9: V13.02] Diagnosis: Iron deficiency anemia[ICD9: 280.9] Diagnosis: Plantar fascia syndrome[ICD9: 728.71] Riana Garcia MD [facility] CPT-4: 20420 02/05/2014 ([id number]) 25109 EST. PATIENT, LEVEL III Diagnosis: ESSENTIAL HYPERTENSION[SNOMED: 62706757] Diagnosis: ABNORMAL LOSS OF WEIGHT[ICD9: 783.21] Riana Garcia MD [facility] CPT-4: 06378 12/11/2013 ([id number]) 51854 EST. PATIENT, LEVEL IV Diagnosis: ESSENTIAL HYPERTENSION[SNOMED: 34396671] Diagnosis: CHRONIC AIRWAY OBST NEC[ICD9: 496] Diagnosis: DEPRESSIVE DISORDER NEC[ICD9: 311] Diagnosis: Weight loss[ICD9: 783.21] Riana Garcia MD [facility] CPT-4: 08157 11/27/2013 ([id number]) 02511 EST. PATIENT, LEVEL IV Diagnosis: ESSENTIAL HYPERTENSION[SNOMED: 77242865] Diagnosis: CHRONIC AIRWAY OBST NEC[ICD9: 496] Diagnosis: HYPERLIPIDEMIA[ICD9: 272.4] Riana Garcia MD, [facility] CPT- 4: 53924 09/30/2013 ([id number]) 06567 EST. PATIENT, LEVEL IV Diagnosis: CHRONIC AIRWAY OBST NEC[ICD9: 496] Diagnosis: ESSENTIAL HYPERTENSION[SNOMED: 91071118] Diagnosis: Hallux valgus[ICD9: 735.0] Riana Garcia MD [facility] CPT- 4: 92630 08/20/2013 ([id number]) 77473 EST. PATIENT, LEVEL IV Diagnosis: ESSENTIAL HYPERTENSION[SNOMED: 31011314] Diagnosis: CHRONIC AIRWAY OBST NEC[ICD9: 496] Diagnosis: Chronic pruritus[ICD9: 698.9] Riana Garcia MD, [facility] CPT- 4: 63404 05/30/2013 ([id number]) 53208 EST. PATIENT, LEVEL III Diagnosis: Acute exacerbation of COPD with asthma[ICD9: 493.22] Riana Garcia MD [facility] CPT-4: 11001 05/07/2013 ([id number]) 65693 EST. PATIENT, LEVEL III Diagnosis: Low back pain[ICD9: 724.2] Riana Garcia MD, [facility] CPT- 4: 57935 04/11/2013 ([id number]) 72354 EST. PATIENT, LEVEL IV Diagnosis: ESSENTIAL HYPERTENSION[SNOMED: 82852904] Diagnosis: OSTEOARTH NOS-UNSPEC[ICD9: 715.90] Diagnosis: HYPERLIPIDEMIA[ICD9: 272.4] Riana Garcia MD, [facility] CPT- 4: 05672 03/18/2013 ([id number]) 02260 EST. PATIENT, LEVEL IV Diagnosis: ESSENTIAL HYPERTENSION[SNOMED: 29907493] Diagnosis: COPD (chronic obstructive pulmonary disease)[ICD9: 496] Diagnosis: DEPRESSIVE DISORDER NEC[ICD9: 311] [facility] CPT-4: 45919 02/14/2013 ([id number]) 48053 EST. PATIENT, LEVEL IV Diagnosis: ESSENTIAL HYPERTENSION[SNOMED: 82137982] Diagnosis: ANEMIA[ICD9: 285.9] Diagnosis: DEPRESSIVE DISORDER NEC[ICD9: 311] [facility] CPT-4: 17735 01/17/2013 ([id number]) 06216 EST. PATIENT, LEVEL IV Diagnosis: ESSENTIAL HYPERTENSION[SNOMED: 64911292] Diagnosis: DEPRESSIVE DISORDER NEC[ICD9: 311] Diagnosis: COUGH[ICD9: 786.2] [facility] CPT-4: 53404 12/27/2012 ([id number]) Patient admitted to the hospital from clinic (NO CHARGE) Diagnosis: BACTERIAL PNEUMONIA NEC[ICD9: 482.89] Diagnosis: Shingles[ICD9: 053.9] Diagnosis: Cough[ICD9: 786.2] Diagnosis: Hypoxemia[ICD9: 799.02] Diagnosis: ESSENTIAL HYPERTENSION[SNOMED: 43728706] Riana Garcia MD [facility] CPT-4: 18471B 12/05/2012 ([id number]) 63393 EST. PATIENT, LEVEL III Diagnosis: ESSENTIAL HYPERTENSION[SNOMED: 42862460] Diagnosis: DEPRESSIVE DISORDER NEC[ICD9: 311] [facility] CPT-4: 55559 10/11/2012 18862 EST. PATIENT, LEVEL III Diagnosis: ESSENTIAL HYPERTENSION[SNOMED: 51287492] [facility] CPT-4: 84387 07/25/2012 ([id number]) 27344 EST. PATIENT, LEVEL III Diagnosis: ESSENTIAL HYPERTENSION[SNOMED: 74104646] Diagnosis: Hypertensive kidney disease, stage III[ICD9: 403.90] [facility] CPT-4: 37930 07/11/2012 ([id number]) 61491 EST. PATIENT, LEVEL IV Diagnosis: ESSENTIAL HYPERTENSION[SNOMED: 01003295] Diagnosis: RENAL & URETERAL DIS NOS[ICD9: 593.9] Diagnosis: ANEMIA[ICD9: 285.9] Diagnosis: Esophageal reflux[ICD9: 530.81] Riana Garcia MD, [facility] CPT- 4: 27204 06/13/2012 ([id number]) 45828 EST. PATIENT, LEVEL IV Diagnosis: ESSENTIAL HYPERTENSION[SNOMED: 33720128] Diagnosis: HYPERLIPIDEMIA[ICD9: 272.4] Diagnosis: Renal insufficiency[ICD9: 593.9] Diagnosis: Nocturnal hypoxemia[ICD9: 799.02] Riana Garcia MD, [facility] CPT-4: 29760 05/10/2012 ([id number]) 51367 EST. PATIENT, LEVEL IV Diagnosis: Contusion of face[ICD9: 920] Diagnosis: ESSENTIAL HYPERTENSION[SNOMED: 96604188] Diagnosis: ACUTE URI[ICD9: 465.9] Diagnosis: COUGH[ICD9: 786.2] Diagnosis: Fall from slipping[ICD9: E885.9] Karyna Garcia MD, [facility] CPT-4: 96637 03/20/2012 ([id number]) 86071 EST. PATIENT, LEVEL IV Diagnosis: ESSENTIAL HYPERTENSION[SNOMED: 68669943] Diagnosis: Knee pain, right[ICD9: 719.46] Riana Garcia MD, [facility] CPT- 4: 41001 02/28/2012 51253 EST. PATIENT, LEVEL IV Diagnosis: ESSENTIAL HYPERTENSION[SNOMED: 10006340] Diagnosis: ACUTE URI[ICD9: 465.9] Diagnosis: COUGH[ICD9: 786.2] Diagnosis: Constipation[ICD9: 564.00] Riana Garcia MD, [facility] CPT- 4: 79751 12/13/2011 32401 EST. PATIENT, LEVEL IV Diagnosis: ESSENTIAL HYPERTENSION[SNOMED: 19762555] Diagnosis: Nasal lesion[ICD9: 478.19] Karyna Garcia MD, [facility] CPT-4: 76757 12/05/2011 76729 EST. PATIENT, LEVEL IV Diagnosis: ESSENTIAL HYPERTENSION[SNOMED: 80019217] Diagnosis: ESOPHAGEAL REFLUX[ICD9: 530.81] Karyna Garcia MD, [facility] CPT-4: 09922 07/26/2011 35951 EST. PATIENT, LEVEL III Diagnosis: Acute bacterial sinusitis[ICD9: 461.9] Diagnosis: ESSENTIAL HYPERTENSION[SNOMED: 42732630] [facility] CPT-4: 21501 06/23/2011 09847 EST. PATIENT, LEVEL IV Diagnosis: ESSENTIAL HYPERTENSION[SNOMED: 79169689] Diagnosis: ESOPHAGEAL REFLUX[ICD9: 530.81] [facility] CPT- 4: 31005 06/07/2011 Plan of Care Planned Activity Notes Codes Status Date [facility]ment: [phone] (15 min) Moderate 11/23/2017 Visit Plan: Hypertension - well controlled - continue with current medications, continue with no added salt diet. Pt has been encouraged to exercise daily. The pt has been advised to call the office if there are any acute concerns about change in blood pressure readings at home. Chronic renal disease - labs to be sent to elder assistant. Anemia in chronic disease - serial labs to be done in 4 months 08/22/2017 Appointment: [facility] [phone] [facility] [place] (15 min) Moderate 08/22/2017 Patient Education: Patient Medication Summary Completed 08/22/2017 Visit Plan: Rectal bleeding post colonoscopy - discussed with Dr. Garcia - will order CBC with type and screen and treat as indicated - pt is to follow up with her surgeon YUDITH. Pt is to go to the ER with any acute changes or concerns. Pt is to notify clinic or go to the ER if symptoms do not improve, if they worsen, or with any changes, questions, or concerns. 07/26/2017 Visit Plan: Rectal bleeding post colonoscopy - discussed with Dr. Garcia - raquel order CBC with type and screen and treat as indicated - pt is to follow up with her surgeon YUDITH. Pt is to go to the ER with any acute changes or concerns. Pt is to notify clinic or go to the ER if symptoms do not improve, if they worsen, or with any changes, questions, or concerns. 07/26/2017 Appointment: [phone] [facility] [place] (30 min) Complex 07/26/2017 Patient Education: Patient Medication Summary Completed 07/26/2017 Visit Plan: Hypertension - well controlled - continue with current medications, continue with no added salt diet. Pt has been encouraged to exercise daily. The pt has been advised to call the office if there are any acute concerns about change in blood pressure readings at home. Anemia - Weakness - check labs today. Muscle weakness is improving - continue with activity at home. Chronic renal disease - pt to keep appt with Information Systems Auditor. 06/27/2017 Appointment: [facility] [phone] [facility] (15 min) Moderate 06/27/2017 Patient Education: Patient Medication Summary Completed 06/27/2017 Visit Plan: Diarrhea - advised pt to have scheduled Lomotil. Renal disease - continue with supportive care - monitor symptoms - monitor labs. Edema - continue with low dose prn lasix and compression socks. Generalized weakness - fatigue - recommended patient to continue with physical therapy -plan on discharge to home with home health on 05/31/17. 05/23/2017 App[facility]ment: [phone] [facility] (30 min) Complex 05/23/2017 Patient Education: Patient Medication Summary Completed 05/23/2017 Visit Plan: Hypertension - well controlled - continue with current medications, continue with no added salt diet. Pt has been encouraged to exercise daily. The pt has been advised to call the office if there are any acute concerns about change in blood pressure readings at home. Chronic renal disease - stable - continue with current management. Anemia - check labs in 2 weeks. Generalized weakness - supportive care, physical therapy. 05/10/2017 Appointment: [facility] Garcia [facility] [address] [facility] (15 min) Moderate 05/10/2017 Patient Education: Patient Medication Summary Completed 05/10/2017 Visit Plan: Hypertension - well controlled - continue with current medications, continue with no added salt diet. Pt has been encouraged to exercise daily. The pt has been advised to call the office if there are any acute concerns about change in blood pressure readings at home. Renal failure - chronic - continue with supportive care. Anemia - hgb stable - repeat labs in 1 month. Weakness - continue with physical therapy x 2 more weeks. 04/27/2017 Appointment: Riana Garcia WPtel: [phone] [facility] (15 min) Moderate 04/27/2017 Patient Education: Patient Medication Summary Completed 04/27/2017 Appointment: Riana Garcia WPtel: [phone] [facility] [place] (15 min) Moderate 04/13/2017 Visit Plan: Hypertension - well controlled - continue with current medications, continue with no added salt diet. Pt has been encouraged to exercise daily. The pt has been advised to call the office if there are any acute concerns about change in blood pressure readings at home. Diarrhea - check repeat cdiff - suspect the patient's diarrhea is post cholecystectomy diarrhea - will order questran for patient at facility. Blister on heel - continue with meplex dressing until healed. improve heel protection. COPD - continue with supportive care. 03/30/2017 Appointment: [phone] [facility] [place] (30 min) Complex 03/30/2017 Patient Education: Patient Medication Summary Completed 03/30/2017 Appointment: Karyna Lomeli WPtel: [phone] [id number] [place] (30 min) Complex 03/23/2017 Visit Plan: Hypertension - well controlled - continue with current medications, continue with no added salt diet. Pt has been encouraged to exercise daily. The pt has been advised to call the office if there are any acute concerns about change in blood pressure readings at home. Renal disease - continue with supportive care and nephrology management. Diarrhea - stop PPI - continue to monitor, call if not improving. If diarrhea not improving - pt to call office and we will consider starting her on irritable bowel medication. I have recommended pt to stay at assisted living as she does not feel safe at home. 02/27/2017 Appointment: Riana Garcia WPtel: [phone] [facility] [place] (15 min) Moderate 02/27/2017 Patient Education: Patient Medication Summary Completed 02/27/2017 Visit Plan: Hypertension - well controlled - continue with current medications, continue with no added salt diet. Pt has been encouraged to exercise daily. The pt has been advised to call the office if there are any acute concerns about change in blood pressure readings at home. Weight loss- continue to monitor-increase intake-f/u in 2 months GERD-increase prilosec to 40mg daily 01/20/2017 Appointment: Karyna Lomeli WPtel: [facility] [place] [address] (30 min) Complex 01/20/2017 Patient Education: Patient Medication Summary Completed 01/20/2017 Visit Plan: Pneumonia - Pt has been diagnosed with pneumonia by physical exam. Will order chest x-ray if needed. Abx have been sent to pharmacy. The pt is aware of the diagnosis and the need for acute treatment of this illness. 01/03/2017 Appointment: Collette Gorman WPtel: [address] [place], [place] [id number] (30 min) Complex 01/03/2017 Patient Education: Patient Medication Summary Completed 01/03/2017 Visit Plan: Hypertension - well controlled - continue with current medications, continue with no added salt diet. Pt has been encouraged to exercise daily. The pt has been advised to call the office if there are any acute concerns about change in blood pressure readings at home. Abnormal weight loss-improved with increased intake 12/16/2016 Appointment: Karyna Lomeli WPtel: [id number] [place] [address] (30 min) Complex 12/16/2016 Patient Education: Patient Medication Summary Completed 12/16/2016 Visit Plan: Hypertension - not well controlled but patient has been out of amlodipine-will pick it up today - continue with current medications, continue with no added salt diet. Pt has been encouraged to exercise daily. The pt has been advised to call the office if there are any acute concerns about change in blood pressure readings at home. Pneumonia - Pt has been diagnosed with pneumonia by physical exam. A chest xray has been ordered as have antibiotics. The pt is aware of the diagnosis and the need for acute treatment of this illness. Weight loss-suspect due to decreased intake- start ensure shakes-samples provided to try-follow up in 2 weeks 12/02/2016 Appointment: Karyna Lomeli WPtel: [phone] (30 min) Complex 12/02/2016 Patient Education: Patient Medication Summary Completed 12/02/2016 Visit Plan: Hypertension - elevated today but patient did not take medications before coming to appt-continue to monitor The patient has been counseled to cut back on salt in diet for a no added salt diet, low fat diet, start an exercise program with low weight bearing exercises and higher aerobic activity for heart health. The patient is to check blood pressure readings as an outpatient and either fax, call, or email the readings to the office next week for practitioner to review. The pt is to call for acute concerns. UTI-repeat UA-negative today in the office Anemia in chronic renal disease-check labs 10/27/2016 Appointment: Karyna Lomeli WPtel: [phone] (30 min) Complex 10/27/2016 Patient Education: Patient Medication Summary Completed 10/27/2016 Visit Plan: Hypertension - well controlled - continue with current medications, continue with no added salt diet. Pt has been encouraged to exercise daily. The pt has been advised to call the office if there are any acute concerns about change in blood pressure readings at home. COPD - chronic problem for this patient. We have reviewed chronic treatment strategy, symptom control, and plans for acute exacerbations. No changes today to the current treatment plan as the patient is stable, monitor for acute changes. Nocturnal hypoxemia-wearing oxygen at 2L at night and continues to benefit from therapy. 09/01/2016 Appointment: [phone] [phone] (30 min) Complex 09/01/2016 Patient Education: Patient Medication Summary Completed 09/01/2016 Visit Plan: Hypertension - well controlled - continue with current medications, continue with no added salt diet. Pt has been encouraged to exercise daily. The pt has been advised to call the office if there are any acute concerns about change in blood pressure readings at home. Anemia-check labs 06/10/2016 Appointment: Karyna Lomeli WPtel: [phone] [phone] (30 min) Complex 06/10/2016 Patient Education: Patient Medication Summary Completed 06/10/2016 Referral: Fanny Girard Referral Completed 06/01/2016 Visit Plan: Hypertension - well controlled - continue with current medications, continue with no added salt diet. Pt has been encouraged to exercise daily. The pt has been advised to call the office if there are any acute concerns about change in blood pressure readings at home. Urinary frequency-history of UTI-culture urine Dizziness-check labs Left foot pain- refer to Dr Girard 05/12/2016 Visit Plan: Hypertension - well controlled - continue with current medications, continue with no added salt diet. Pt has been encouraged to exercise daily. The pt has been advised to call the office if there are any acute concerns about change in blood pressure readings at home. Urinary frequency-history of UTI-culture urine Dizziness-check labs Left foot pain- refer to Dr Girard 05/12/2016 Appointment: [facility]aryna [facility]omeli [phone] [phone] (30 min) Complex 05/12/2016 Patient Education: Patient Medication Summary Completed 05/12/2016 Care Plan: Referral Order SNOMED-CT : [id number] Pending 05/12/2016 Referral: Martine King Referral Completed 01/12/2016 Visit Plan: Hypertension - well controlled - continue with current medications, continue with no added salt diet. Pt has been encouraged to exercise daily. The pt has been advised to call the office if there are any acute concerns about change in blood pressure readings at home. Hyperlipidemia - pt has been counseled about appropriate diet, exercise, and need for low fat food choices. I have discussed the need for the patient to take medications as prescribed. If the patient has negative side effects from the medication, they are to CALL the office and not abruptly discontinue the medication without discussion with a practitioner in the office. We will check labs in 3-6 months for follow up on the patient's chronic medical problem and to assure normal liver response to medications. Aortic stenosis-no recent cardiology follow up- refer to Dr King, she has seen him in the past several years ago Chronic renal disease stage 3-sees nephrology 01/07/2016 Appointment: (30 min) Complex 01/07/2016 Patient Education: Patient Medication Summary Completed 01/07/2016 Patient Education: Hypertension Completed 01/07/2016 Care Plan: Referral Order SNOMED-CT : [id number] Ordered 01/07/2016 Visit Plan: HTN-elevated today-monitor at home and follow up in 1 month Esophageal Reflux - the patient has been counseled against excessive intake of caffeine, spicy foods, peppermint, and cinnamon - all of which can exacerbate esophageal reflux. The patient is to take medications as prescribed and call the office if the symptoms are not improving. 12/10/2015 Visit Plan: HTN-elevated today-monitor at home and follow up in 1 month Esophageal Reflux - the patient has been counseled against excessive intake of caffeine, spicy foods, peppermint, and cinnamon - all of which can exacerbate esophageal reflux. The patient is to take medications as prescribed and call the office if the symptoms are not improving. 12/10/2015 Visit Plan: HTN-elevated today-monitor at home and follow up in 1 month Esophageal Reflux - the patient has been counseled against excessive intake of caffeine, spicy foods, peppermint, and cinnamon - all of which can exacerbate esophageal reflux. The patient is to take medications as prescribed and call the office if the symptoms are not improving. 12/10/2015 Appointment: (15 min) Moderate 12/10/2015 Patient Education: Patient Medication Summary Completed 12/10/2015 Patient Education: Hypertension Completed 12/10/2015 Visit Plan: Conjunctival hemorrhage-hold asa x 3 days- avoid nose blowing-follow up in 1 week Hypertension - well controlled - continue with current medications, continue with no added salt diet. Pt has been encouraged to exercise daily. The pt has been advised to call the office if there are any acute concerns about change in blood pressure readings at home. Chronic renal disease-check labs at appt in 1 week 12/03/2015 Appointment: (15 min) Moderate 12/03/2015 Patient Education: Patient Medication Summary Completed 12/03/2015 Patient Education: Hypertension Completed 12/03/2015 Visit Plan: Hypertension - well controlled - continue with current medications, continue with no added salt diet. Pt has been encouraged to exercise daily. The pt has been advised to call the office if there are any acute concerns about change in blood pressure readings at home. COPD - chronic problem for this patient. We have reviewed chronic treatment strategy, symptom control, and plans for acute exacerbations. No changes today to the current treatment plan as the patient is stable, monitor for acute changes. Hypoxemia- oxygen testing today in the office-patient oxygen saturation 96% on room air at rest. Oxygen saturation dropped to 87% with exercise but improved to 96% with 2L /minute. Will fax office note to patient's oxygen supply company. Depression-on [id number] to look to make sure she is still taking celexa/citalopram 10/01/2015 Visit Plan: Hypertension - well controlled - continue with current medications, continue with no added salt diet. Pt has been encouraged to exercise daily. The pt has been advised to call the office if there are any acute concerns about change in blood pressure readings at home. COPD - chronic problem for this patient. We have reviewed chronic treatment strategy, symptom control, and plans for acute exacerbations. No changes today to the current treatment plan as the patient is stable, monitor for acute changes. Hypoxemia- oxygen testing today in the office-patient oxygen saturation 96% on room air at rest. Oxygen saturation dropped to 87% with exercise but improved to 96% with 2L /minute. Will fax office note to patient's oxygen supply company. Depression-on [id number]-[id number]-[id number] to look to make sure she is still taking celexa/citalopram 10/01/2015 Appointment: Karyna Lomeli [facility]Ptel[phone] (30 min) Complex 10/01/2015 Patient Education: Patient Medication Summary Completed 10/01/2015 Patient Education: Hypertension Completed 10/01/2015 Visit Plan: HTN - uncontrolled - monitor blood pressure at home, decrease sodium in diet. Renal failure - chronic in nature, stable at this time. Monitor labs, call if symptoms are not improving. 07/23/2015 Appointment: Riana Garcia WPtel: [facility] (15 min) Moderate 07/23/2015 Patient Education: Patient Medication Summary Completed 07/23/2015 Patient Education: Hypertension Completed 07/23/2015 Visit Plan: Hypertension - well controlled - continue with current medications, continue with no added salt diet. Pt has been encouraged to exercise daily. The pt has been advised to call the office if there are any acute concerns about change in blood pressure readings at home. Hyperlipidemia - pt has been counseled about appropriate diet, exercise, and need for low fat food choices. I have discussed the need for the patient to take medications as prescribed. If the patient has negative side effects from the medication, they are to CALL the office and not abruptly discontinue the medication without discussion with a practitioner in the office. We will check labs in 3-6 months for follow up on the patient's chronic medical problem and to assure normal liver response to medications. COPD - chronic problem for this patient. We have reviewed chronic treatment strategy, symptom control, and plans for acute exacerbations. No changes today to the current treatment plan as the patient is stable, monitor for acute changes. OA - treatment with rubs, exercise, call if not improving. 06/04/2015 Appointment: Riana Garcia WPtel: [facility] Follow up 06/04/2015 Patient Education: Patient Medication Summary Completed 06/04/2015 Patient Education: Hypertension Completed 06/04/2015 Visit Plan: Hypertension - well controlled - continue with current medications, continue with no added salt diet. Pt has been encouraged to exercise daily. The pt has been advised to call the office if there are any acute concerns about change in blood pressure readings at home. Weakness - falling at home - referral to [facility] for eval and treat. Skin lesion - use neosporin on skin lesion until healed. 01/12/2015 Appointment: Riana Garcia WPtel: [address] [facility] Sick 01/12/2015 Patient Education: Patient Medication Summary Completed 01/12/2015 Visit Plan: Costochondritis - pt to use anti- inflammatories as directed.. Pt is to call if the chest pain does not improve. CHEST XRAY TODAY AT [facility] TO R/O RIB FRACTURE. Shoulder pain - recommended patient to use muscle rub on shoulder, call if not continuing to improve. Skin lesion - CONTINUE ON DOXYCYCLINE PRESCRIBED ON MONDAY. 01/02/2015 Appointment: Sick 01/02/2015 Appointment: [facility] 01/02/2015 Patient Education: Patient Medication Summary Completed 01/02/2015 Visit Plan: Shoulder pain - recommended patient to use muscle rub on shoulder, call if not continuing to improve. Skin lesion - pt started to have pain and worsening of lesion after dog scratched the site - recommended to start on doxycycline 100mg bid. 12/30/2014 Appointment: Riana Garcia WPtel: [address] [place], [place] [id number] Follow up 12/30/2014 Patient Education: Patient Medication Summary Completed 12/30/2014 Visit Plan: Hypertension - well controlled - continue with current medications, continue with no added salt diet. Pt has been encouraged to exercise daily. The pt has been advised to call the office if there are any acute concerns about change in blood pressure readings at home. COPD - chronic problem for this patient. We have reviewed chronic treatment strategy, symptom control, and plans for acute exacerbations. No changes today to the current treatment plan as the patient is stable, monitor for acute changes. 12/08/2014 Appointment: Riana Garcia WPtel: [facility] Follow up 12/08/2014 Patient Education: Patient Medication Summary Completed 12/08/2014 Patient Education: Hypertension Completed 12/08/2014 Visit Plan: Hypertension - well controlled - continue with current medications, continue with no added salt diet. Pt has been encouraged to exercise daily. The pt has been advised to call the office if there are any acute concerns about change in blood pressure readings at home. Arthritis- occasionally uncontrolled symptoms- recommend pt to take antiinflammatory as directed for pain control. Use tylenol for break through pain symptoms. Joint Injection - Pt was given post - injection instructions. The pt has been advised to use anti-inflammatories post injection today, ice to the injected site, call if redness, warmth, or increased pain occurs at the site of injection. COPD - stable symptoms - continue with current use of albuterol and symbicort. 09/08/2014 Appointment: Riana Garcia WPtel: [facility] Follow up 09/08/2014 Patient Education: Patient Medication Summary Completed 09/08/2014 Care Plan: COMPLETE CBC AUTOMATED LOINC : 84201-9 Ordered 09/08/2014 Visit Plan: Hypertension - well controlled - continue with current medications, continue with no added salt diet. Pt has been encouraged to exercise daily. The pt has been advised to call the office if there are any acute concerns about change in blood pressure readings at home. Renal insufficiency - stable - continue with pushing fluids and current medication regimen. Ankle - improved - continue with use of cane UA - negative Pt states that she only has a window air conditioning unit - she uses it only in her living room - she admits to sweating a lot at night and during the day. Dysuria - pt needs a ua today. 06/09/2014 Appointment: Riana Garcia WPtel: [address] [facility] Follow up 06/09/2014 Patient Education: Patient Medication Summary Completed 06/09/2014 Visit Plan: Hypertension - uncontrolled - the patient's medications have been modified as documented in the visit note. The patient has been counseled to cut back on salt in diet for a no added salt diet, low fat diet, start an exercise program with low weight bearing exercises and higher aerobic activity for heart health. The patient is to check blood pressure readings as an outpatient and either fax, call, or email the readings to the office next week for practitioner to review. The pt is to call for acute concerns. Pt it to be taking metoprolol succinate 50mg in the morning and 25mg at bedtime. COPD - chronic problem for this patient. We have reviewed chronic treatment strategy, symptom control, and plans for acute exacerbations. No changes today to the current treatment plan as the patient is stable, monitor for acute changes. 04/28/2014 [facility]ment: [facility] [place] Follow up 04/28/2014 Patient Education: Patient Medication Summary Completed 04/28/2014 Patient Education: Hypertension Completed 04/28/2014 Appointment: Riana Garcia WPtel[facility] [place] Follow up 04/24/2014 Visit Plan: Gait instability with Sciatica - pt has been on a steroid course - has not had much improvement in pain - recommended that she use a walker - will order a 4 wheeled walker for her to use - and RX given to pt for this type of walker - pt given RX for back and si joint xrays as well as right hip xray. Hypertension - well controlled - continue with current medications, continue with no added salt diet. Pt has been encouraged to exercise daily. The pt has been advised to call the office if there are any acute concerns about change in blood pressure readings at home. 03/26/2014 Appointment: Riana Garcia WPtel: [facility] Follow up 03/26/2014 Patient Education: Patient Medication Summary Completed 03/26/2014 Patient Education: Hypertension Completed 03/26/2014 Visit Plan: Anemia - iron deficiency - pt to do as follows : Increase iron to one pill twice daily - take orange juice - do not take at the same time as a calcium supplement. HTN - controlled - no changes to medication at this time. Plantar Fasciitis - recommended pt to stretch feet at night - needs to use cold water bottle/iced water bottle - roll under feet to improve inflammation in her feet and stretch feet at the same time. Pt is not a great candidate for anti-inflammation due to her renal function being less than optimal. Dysuria - negative ua. 02/05/2014 Appointment: Riana Garcia WPtel: [address] [place], [place] [id number] Follow up 02/05/2014 Patient Education: Patient Medication Summary Completed 02/05/2014 Patient Education: Hypertension Completed 02/05/2014 Appointment: Riana Garcia WPtel: [address] [place], [place] [id number] Follow up 01/30/2014 Visit Plan: Hypertension - well controlled - continue with current medications, continue with no added salt diet. Pt has been encouraged to exercise daily. The pt has been advised to call the office if there are any acute concerns about change in blood pressure readings at home. Weight loss - recommended pt to eat multiple small meals and snacks daily to help to bolster weight. 12/11/2013 Appointment: Riana Garcia WPtel[facility] [facility] 12/11/2013 Patient Education: Patient Medication Summary Completed 12/11/2013 Patient Education: Hypertension Completed 12/11/2013 Patient Education: Patient Medication Summary Completed 12/03/2013 Patient Education: Hypertension Completed 12/03/2013 Patient Education: Patient Medication Summary Completed 11/28/2013 Visit Plan: Hypertension - well controlled - continue with current medications, continue with no added salt diet. Pt has been encouraged to exercise daily. The pt has been advised to call the office if there are any acute concerns about change in blood pressure readings at home. COPD - chronic problem for this patient. We have reviewed chronic treatment strategy, symptom control, and plans for acute exacerbations. No changes today to the current treatment plan as the patient is stable, monitor for acute changes. Wt loss - recommended labs and stool studies. Chronic Depression and anxiety - the pt has symptoms of chronic anxiety and depression that have been fairly well controlled since the last office visit. The pt has expected periods of exacerbation with abatement of the symptoms with change in situational exposure. No change in current medications. 11/27/2013 Appointment: [facility] Garcia [facility]Ptel[facility] [facility] 11/27/2013 Patient Education: Patient Medication Summary Completed 11/27/2013 Patient Education: Hypertension Completed 11/27/2013 Visit Plan: COPD EXACERBATION - COPD is a chronic problem for this patient, however, the pt is experiencing an acute exacerbation of the COPD. Pt is to receive appropriate treatment as an out patient, but the pt is aware that if symptoms worsen or do not improve, to call [facility] for instructions, or go to the EMERGENCY ROOM if the symptoms are beyond acute control with rescue medications. We have reviewed chronic treatment strategy, symptom control , and plans for acute exacerbations. No changes today to the current treatment plan as the patient is stable, monitor for acute changes. Weight loss-patient not eating regular meals-instructed her to start eating breakfast, lunch and dinner. Follow up in 1 month. 10/31/2013 Appointment: [phone] [facility] 10/31/2013 Patient Education: Patient Medication Summary Completed 10/31/2013 Patient Education: Patient Medication Summary Completed 10/02/2013 Patient Education: Hypertension Completed 10/02/2013 Visit Plan: Hypertension - well controlled - continue with current medications, continue with no added salt diet. Pt has been encouraged to exercise daily. The pt has been advised to call the office if there are any acute concerns about change in blood pressure readings at home. COPD - chronic problem for this patient. We have reviewed chronic treatment strategy, symptom control, and plans for acute exacerbations. No changes today to the current treatment plan as the patient is stable, monitor for acute changes. Hyperlipidemia - check cholesterol panel and a chem panel this week - the pt to come back on Monday morning for labs to be drawn. Pt wants a less expensive cholesterol medication - pt states that trilipix is too expensive at 20$ per month. 09/30/2013 Appointment: Riana Garcia WPtel: [address] [place], [place] [id number] Follow up 09/30/2013 Patient Education: Patient Medication Summary Completed 09/30/2013 Patient Education: Hypertension Completed 09/30/2013 Appointment: Riana Garcia WPtel: [address] [place], [place] [id number] Follow up 08/29/2013 Visit Plan: COPD - chronic problem for this patient. We have reviewed chronic treatment strategy, symptom control, and plans for acute exacerbations. No changes today to the current treatment plan as the patient is stable, monitor for acute changes. Hypertension - well controlled - continue with current medications, continue with no added salt diet. Pt has been encouraged to exercise daily. The pt has been advised to call the office if there are any acute concerns about change in blood pressure readings at home. Patient is medicalloy optimized for foot surgery with Dr Daniels. 08/20/2013 Appointment: Karyna Lomeli WPtel[facility] Follow up 08/20/2013 Patient Education: Patient Medication Summary Completed 08/20/2013 Patient Education: Hypertension Completed 08/20/2013 Appointment: Riana Garcia WPtel: [facility] [place] Follow up 06/20/2013 Visit Plan: Hypertension - well controlled - continue with current medications, continue with no added salt diet. Pt has been encouraged to exercise daily. The pt has been advised to call the office if there are any acute concerns about change in blood pressure readings at home. COPD - chronic problem for this patient. We have reviewed chronic treatment strategy, symptom control, and plans for acute exacerbations. No changes today to the current treatment plan as the patient is stable, monitor for acute changes. Pruritis - on arms only - over sun exposed tissue - pt to try a different lotion to attempt to control her symptoms. This pruritis is likely due to medication reaction. 05/30/2013 Appointment: Riana Garcia WPtel: [address] [facility] Follow up 05/30/2013 Patient Education: Patient Medication Summary Completed 05/30/2013 Patient Education: Hypertension Completed 05/30/2013 Visit Plan: COPD EXACERBATION - COPD is a chronic problem for this patient, however, the pt is experiencing an acute exacerbation of the COPD. Pt is to receive appropriate treatment as an out patient, but the pt is aware that if symptoms worsen or do not improve, to call [facility] for instructions, or go to the EMERGENCY ROOM if the symptoms are beyond acute control with rescue medications. We have reviewed chronic treatment strategy, symptom control , and plans for acute exacerbations. No changes today to the current treatment plan as the patient is stable, monitor for acute changes. I have recommended nebulizer treatments 05/07/2013 Appointment: Riana Garcia WPtel: [facility] Other 05/07/2013 Patient Education: Patient Medication Summary Completed 05/07/2013 Visit Plan: Low back pain- the patient was instructed in appropriate posture, need for weight loss to alleviate abdominal obesity that is worsening the patient's back pain.. The pt is to use prn antiinflammatories to manage acute pain. The patient is to call the office if the pain is worsening or does not improve. ordered xrays of hips and pelvis to be done today 04/11/2013 Appointment: Riana Garcia WPtel: [address] [facility] Other 04/11/2013 Patient Education: Patient Medication Summary Completed 04/11/2013 Visit Plan: Hypertension - well controlled - continue with current medications, continue with no added salt diet. Pt has been encouraged to exercise daily. The pt has been advised to call the office if there are any acute concerns about change in blood pressure readings at home. Hyperlipidemia - pt has been counseled about appropriate diet, exercise, and need for low fat food choices. I have discussed the need for the patient to take medications as prescribed. If the patient has negative side effects from the medication, they are to CALL the office and not abruptly discontinue the medication without discussion with a practicioner in the office. We will check labs in 3-6 months for follow up on the patient's chronic medical problem and to assure normal liver response to medications. Arthritis- occasionally uncontrolled symptoms- recommend pt to take antiinflammatory as directed for pain control. Use tylenol for break through pain symptoms. 03/18/2013 Appointment: Riana Garcia WPtel: [address] [facility] Follow up 03/18/2013 Patient Education: Patient Medication Summary Completed 03/18/2013 Patient Education: Hypertension Completed 03/18/2013 Visit Plan: Hypertension - uncontrolled - the patient's medications have been modified as documented in the visit note. The patient has been counseled to cut back on salt in diet for a no added salt diet, low fat diet, start an exercise program with low weight bearing exercises and higher aerobic activity for heart health. The patient is to check blood pressure readings as an outpatient and either fax, call, or email the readings to the office next week for practicioner to review. The pt is to call for acute concerns. COPD - chronic problem for this patient. We have reviewed chronic treatment strategy, symptom control, and plans for acute exacerbations. No changes today to the current treatment plan as the patient is stable, monitor for acute changes. Chronic Depression and anxiety - the pt has symptoms of chronic anxiety and depression that have been fairly well controlled since the last office visit. The pt has expected periods of exacerbation with abatement of the symptoms with change in situational exposure. No change in current medications. 02/14/2013 Appointment: Riana Garcia WPtel: [address] [facility] Follow up 02/14/2013 Patient Education: Patient Medication Summary Completed 02/14/2013 Patient Education: Hypertension Completed 02/14/2013 Visit Plan: Hypertension - well controlled - continue with current medications, continue with no added salt diet. Pt has been encouraged to exercise daily. The pt has been advised to call the office if there are any acute concerns about change in blood pressure readings at home. Anemia - recommended pt to have iron studies and repeat CBC. Chronic Depression and anxiety - the pt has symptoms of chronic anxiety and depression that have been fairly well controlled since the last office visit. The pt has expected periods of exacerbation with abatement of the symptoms with change in situational exposure. No change in current medications. 01/17/2013 Appointment: [facility] Gracia [facility]el[facility] [facility] 01/17/2013 Patient Education: Patient Medication Summary Completed 01/17/2013 Patient Education: Hypertension Completed 01/17/2013 Care Plan: IRON GRP Pending 01/17/2013 Visit Plan: Hypertension - uncontrolled - INSTRUCTED PATIENT'S GRANDDAUGHTER TO CALL WITH [facility]ICATION[facility]-PATIENT IS UNSURE HOW MUCH METOPROLOL SHE IS TAKING. Follow up in 3 weeks with blood pressure log. The patient has been counseled to cut back on salt in diet for a no added salt diet, low fat diet, start an exercise program with low weight bearing exercises and higher aerobic activity for heart health. The patient is to check blood pressure readings as an outpatient and either fax, call, or email the readings to the office next week for practicioner to review. The pt is to call for acute concerns. Cough-recent jncxbnboq-wjjjgoxgw-kbxdhlny symbicort and spiriva as previously directed. Depression-fialry well controlloed-no changes at this time. 12/27/2012 Appointment: [facility]ary[facility] Lomeli [facility]Ptel[id number] [facility] follow up 12/27/2012 Patient Education: Patient Medication Summary Completed 12/27/2012 Patient Education: Hypertension Completed 12/27/2012 Visit Plan: PNEUMONIA - PT IS CLINICALLY SYMPTOMATIC FOR PNEUMONIA - A CHEST XRAY, SPUTUM C AND S, BLOOD CULTURES, AND LABS HAVE BEEN ORDERED IN ORDER TO FURTHER WORK-UP THE ACUTE ILLNESS. Shingles - Herpes Zoster - acute in onset - pt started on acyclovir, admitted to hospital, started on oral acyclovir, the pt is to be considered contagious. Hypertension - well controlled - continue with current medications, continue with no added salt diet. Pt has been encouraged to exercise daily. The pt has been advised to call the office if there are any acute concerns about change in blood pressure readings at home. Hypoxemia - treat with oxygen, start breathing treatment. 12/05/2012 Appointment: [facility]Ptel[facility] [facility] follow up 12/05/2012 Patient Education: Patient Medication Summary Completed 12/05/2012 Patient Education: Hypertension Completed 12/05/2012 Appointment: Riana Garcia [facility]Ptel[facility] Follow up 11/12/2012 Visit Plan: Hypertension - well controlled at home per pt report, continue with current medications, continue with no added salt diet. Pt has been encouraged to exercise daily. The pt has been advised to call the office if there are any acute concerns about change in blood pressure readings at home. Hyperlipidemia - pt has been counseled about appropriate diet, exercise , and need for low fat food choices. I have discussed the need for the patient to take medications as prescribed. If the patient has negative side effects from the medication, they are to CALL the office and not abruptly discontinue the medication without discussion with a practicioner in the office. We will check labs in 3-6 months for follow up on the patient's chronic medical problem and to assure normal liver response to medications. Joint Injection - Pt was given post - injection instructions. The pt has been advised to use antiinflammatories post injection today, ice to the injected site, call if redness, warmth, or increased pain occurs at the site of injection. 10/11/2012 Appointment: Riana Gacria [facility]Ptel[facility] [facility] 10/11/2012 Patient Education: Patient Medication Summary Completed 10/11/2012 Patient Education: Hypertension Completed 10/11/2012 Visit Plan: Joint Injection - Pt was given post - injection instructions. The pt has been advised to use antiinflammatories post injection today, ice to the injected site, call if redness, warmth, or increased pain occurs at the site of injection. Hypertension - well controlled - continue with current medications, continue with no added salt diet. Pt has been encouraged to exercise daily. The pt has been advised to call the office if there are any acute concerns about change in blood pressure readings at home. 07/25/2012 Appointment: Karyna Lomeli WPtel: [address] [id number] Follow up 07/25/2012 Patient Education: Patient Medication Summary Completed 07/25/2012 Patient Education: High Blood Pressure: Essential Hypertension Completed 2011 Visit Plan: Hypertension - uncontrolled - the patient's medications have been modified as documented in the visit note. The patient has been counseled to cut back on salt in diet for a no added salt diet, low fat diet, start an exercise program with low weight bearing exercises and higher aerobic activity for heart health. The patient is to check blood pressure readings as an outpatient and either fax, call, or email the readings to the office next week for practicioner to review. The pt is to call for acute concerns. PT TO CONTINUE WITH NORVASC, RECOMMEND INCREASE OF THE TOPROL TO A FULL PILL IN THE MORNING AND 1/2 pillAT BEDTIME. 07/11/2012 Appointment: Riana Garcia WPtel: [facility] Follow up 07/11/2012 Patient Education: Patient Medication Summary Completed 07/11/2012 Patient Education: High Blood Pressure: Essential Hypertension Completed 2011 Visit Plan: Hypertension - well controlled - continue with current medications, continue with no added salt diet. Pt has been encouraged to exercise daily. The pt has been advised to call the office if there are any acute concerns about change in blood pressure readings at home. Anemia-check CBC and stools for occult blood Chronic renal disease-labs stable-keep appt with elder assistant Esophageal Reflux - the patient has been counseled against excessive intake of caffiene, spicy foods, peppermint, and cinnamon - all of which can exacerbate esophageal reflux. The patient is to take medications as prescribed and call the office if the symptoms are not improving. 06/13/2012 Appointment: Riana Garcia WPtel: [address] [facility] Other 06/13/2012 Patient Education: Patient Medication Summary Completed 06/13/2012 Patient Education: High Blood Pressure: Essential Hypertension Completed 2011 Visit Plan: Hypertension - well controlled - continue with current medications, continue with no added salt diet. Pt has been encouraged to exercise daily. The pt has been advised to call the office if there are any acute concerns about change in blood pressure readings at home. Hyperlipidemia - pt has been counseled about appropriate diet, exercise, and need for low fat food choices. I have discussed the need for the patient to take medications as prescribed. If the patient has negative side effects from the medication, they are to CALL the office and not abruptly discontinue the medication without discussion with a practicioner in the office. We will check labs in 3-6 months for follow up on the patient's chronic medical problem and to assure normal liver response to medications. Renal insufficiency- check labs today. Nighttime hypoxemia- rx for oxygen given to pt 05/10/2012 Appointment: Riana Garcia WPtel: [address] [facility] Other 05/10/2012 Patient Education: Patient Medication Summary Completed 05/10/2012 Patient Education: High Blood Pressure: Essential Hypertension Completed 2011 Appointment: Riana Garcia WPtel: [facility] Lab Draw 03/21/2012 Visit Plan: Contusion of face-due to fall-plan to xray facial bones to rule out acute fracture-instructed patient to monitor for s/s of bleeding and to go to ER for any changes. Hypertension - well controlled - continue with current medications, continue with no added salt diet. Pt has been encouraged to exercise daily. The pt has been advised to call the office if there are any acute concerns about change in blood pressure readings at home. URI -cough- Pt advised to increase fluids, vitamin C. Discussed natural and expected course of this diagnosis and need to alert me if symtpoms do not follow expected course, or if any worse. RX sent to patient's pharmacy. */ 03/20/2012 App[facility]ment: [id number] Other 03/20/2012 Patient Education: Patient Medication Summary Completed 03/20/2012 Patient Education: High Blood Pressure: Essential Hypertension Completed 2011 Appointment: Karyna Lomeli WPtel: [facility] [place] [id number] [place] [address] Lab Draw 03/05/2012 Patient Education: Patient Medication Summary Completed 03/05/2012 Visit Plan: Joint Injection - Pt was given post - injection instructions. The pt has been advised to use antiinflammatories post injection today, ice to the injected site, call if redness, warmth, or increased pain occurs at the site of injection. Hypertension - well controlled - continue with current medications, continue with no added salt diet. Pt has been encouraged to exercise daily. The pt has been advised to call the office if there are any acute concerns about change in blood pressure readings at home. 02/28/2012 Appointment: Riana Garcia WPtel: [address] [place] [address] Other 02/28/2012 Patient Education: Patient Medication Summary Completed 02/28/2012 Patient Education: High Blood Pressure: Essential Hypertension Completed 2011 Appointment: Riana Garcia WPtel: [address] [place], [place] [id number] [place] Other 02/23/2012 Appointment: Karyna Lomeli WPtel: [address] [place], [place] [id number] Other 12/27/2011 Visit Plan: Hypertension - well controlled - continue with current medications, continue with no added salt diet. Pt has been encouraged to exercise daily. The pt has been advised to call the office if there are any acute concerns about change in blood pressure readings at home. URI/cough- Pt advised to increase fluids, vitamin C. Discussed natural and expected course of this diagnosis and need to alert me if symtpoms do not follow expected course, or if any worse. RX sent to patient's pharmacy. Chest xray at the hospital to r/ o acute abnormality. Constipation - uncontrolled - I have discussed with the patient the need for adequate fiber and water intake to facilitate soft, easily passed stools. The pt noted understanding of our conversation. I have given the patient a recipe for "power pudding" - equal parts, bran flakes, prune juice, and apple sauce. The pt is to call if symptoms not improved on this regimen. 12/13/2011 Appointment: Karyna Lomeli WPtel: [id number] [place] [address] Other 12/13/2011 Patient Education: Patient Medication Summary Completed 12/13/2011 Patient Education: .Amazing charts Power Pudding Completed 12/13/2011 Patient Education: High Blood Pressure: Essential Hypertension Completed 2011 Visit Plan: Hypertension - fairly well controlled - continue with current medications, continue with no added salt diet. Pt has been encouraged to exercise daily. The pt has been advised to call the office if there are any acute concerns about change in blood pressure readings at home. Nasal lesion-bactroban ointment sent to patient's pharmacy-instructed on use-return in 1 week for re-eval. 12/05/2011 Appointment: Karyna Lomeli WPtel: [id number] [place] [address] Other 12/05/2011 Patient Education: Patient Medication Summary Completed 12/05/2011 Patient Education: High Blood Pressure: Essential Hypertension Completed 2011 Visit Plan: Hypertension - fairly well controlled - continue with current medications, continue with no added salt diet. Pt has been encouraged to exercise daily. The pt has been advised to call the office if there are any acute concerns about change in blood pressure readings at home. Esophageal Reflux - the patient has been counseled against excessive intake of caffiene, spicy foods, peppermint, and cinnamon - all of which can exacerbate esophageal reflux. The patient is to take medications as prescribed and call the office if the symptoms are not improving. Keep appointment with Dr. Wallace tomorrow for evaluation of hiatal hernia. 07/26/2011 Appointment: Riana Garcia WPtel: [facility] Other 07/26/2011 Patient Education: Patient Medication Summary Completed 07/26/2011 Appointment: Riana Garcia WPtel: [address] [place], [place] [phone] Lab Draw 07/14/2011 Visit Plan: DX sinusitis - discussed expected course with the patient, pt advised to call for worsening symptoms, or lack of improvement on prescribed treatment course. Hypertension - uncontrolled - elevated in the office today. The patient has been counseled to cut back on salt in diet for a no added salt diet, low fat diet, start an exercise program with low weight bearing exercises and higher aerobic activity for heart health. The patient is to check blood pressure readings as an outpatient and either fax, call, or email the readings to the office next week for practicioner to review. The pt is to call for acute concerns. 06/23/2011 Appointment: Karyna Lomeli WPtel: [phone] [facility] Other 06/23/2011 Patient Education: Patient Medication Summary Completed 06/23/2011 Visit Plan: Hypertension - well controlled - continue with current medications, continue with no added salt diet. Pt has been encouraged to exercise daily. The pt has been advised to call the office if there are any acute concerns about change in blood pressure readings at home. Esophageal Reflux - the patient has been counseled against excessive intake of caffiene, spicy foods, peppermint, and cinnamon - all of which can exacerbate esophageal reflux. The patient is to take medications as prescribed and call the office if the symptoms are not improving.. Keep taking omeprazole. 06/07/2011 Appointment: Riana Garcia WPtel: [address] Other 06/07/2011 Patient Education: Patient Medication Summary Completed 06/07/2011 Referral: Martine King Referral Appointment Requested Referral: Fanny Girard Referral Appointment Requested Referral: Johanna Shepard WPtel: [address] Referral Appointment Requested Instructions Comment INCREASE PRILOSEC FROM 20 MG PER DAY TO 40 MG PER DAY RETURN TO CLINIC IN TWO MONTH FOR WEIGHT CHECK . Hypertension - well controlled - continue with current medications, continue with no added salt diet. Pt has been encouraged to exercise daily. The pt has been advised to call the office if there are any acute concerns about change in blood pressure readings at home. Weight loss-continue to monitor-increase intake-f/u in 2 months GERD-increase prilosec to 40mg daily check stool studies - need to see if there is blood in stools when family brings in labs at the beginning of next week, will check thyroid, inflammatory markers, renal function, red blood cells (TSH, ESR, CRP, CMP, CBC) and will talk about these labs at next office visit in 2 wks. Hypertension - well controlled - continue with current medications, continue with no added salt diet. Pt has been encouraged to exercise daily. The pt has been advised to call the office if there are any acute concerns about change in blood pressure readings at home. COPD - chronic problem for this patient. We have reviewed chronic treatment strategy, symptom control, and plans for acute exacerbations. No changes today to the current treatment plan as the patient is stable, monitor for acute changes. Wt loss - recommended labs and stool studies. Chronic Depression and anxiety - the pt has symptoms of chronic anxiety and depression that have been fairly well controlled since the last office visit. The pt has expected periods of exacerbation with abatement of the symptoms with change in situational exposure. No change in current medications. Chest xray and facial xray today at the hospital Labs at the hospital today-cbc, chem panel Zithromax sent to [facility]-start today Call if your cough does not improve. Contusion of face-due to fall-plan to xray facial bones to rule out acute fracture-instructed patient to monitor for s/s of bleeding and to go to ER for any changes. Hypertension - well controlled - continue with current medications, continue with no added salt diet. Pt has been encouraged to exercise daily. The pt has been advised to call the office if there are any acute concerns about change in blood pressure readings at home. URI -cough- Pt advised to increase fluids, vitamin C. Discussed natural and expected course of this diagnosis and need to alert me if symtpoms do not follow expected course, or if any worse. RX sent to patient's pharmacy. */ . Hypertension - uncontrolled - the patient's medications have been modified as documented in the visit note. The patient has been counseled to cut back on salt in diet for a no added salt diet, low fat diet, start an exercise program with low weight bearing exercises and higher aerobic activity for heart health. The patient is to check blood pressure readings as an outpatient and either fax , call, or email the readings to the office next week for practitioner to review. The pt is to call for acute concerns. Pt it to be taking metoprolol succinate 50mg in the morning and 25mg at bedtime. COPD - chronic problem for this patient. We have reviewed chronic treatment strategy, symptom control, and plans for acute exacerbations. No changes today to the current treatment plan as the patient is stable, monitor for acute changes. CHECK URINE AND LABS PROBIOTIC TWICE DAILY REFER TO DR BAM GORDILLO . Hypertension - well controlled - continue with current medications, continue with no added salt diet. Pt has been encouraged to exercise daily. The pt has been advised to call the office if there are any acute concerns about change in blood pressure readings at home. Urinary frequency-history of UTI-culture urine Dizziness-check labs Left foot pain-refer to Dr Girard Refer to Dr King for cardiac follow up-needs echo . Hypertension - well controlled - continue with current medications, continue with no added salt diet. Pt has been encouraged to exercise daily. The pt has been advised to call the office if there are any acute concerns about change in blood pressure readings at home. Hyperlipidemia - pt has been counseled about appropriate diet, exercise, and need for low fat food choices. I have discussed the need for the patient to take medications as prescribed. If the patient has negative side effects from the medication, they are to CALL the office and not abruptly discontinue the medication without discussion with a practitioner in the office. We will check labs in 3-6 months for follow up on the patient's chronic medical problem and to assure normal liver response to medications. Aortic stenosis-no recent cardiology follow up-refer to Dr King, she has seen him in the past several years ago Chronic renal disease stage 3-sees nephrology CHECK URINE AND LABS PROBIOTIC TWICE DAILY REFER TO DR BAM GORDILLO . Hypertension - well controlled - continue with current medications, continue with no added salt diet. Pt has been encouraged to exercise daily. The pt has been advised to call the office if there are any acute concerns about change in blood pressure readings at home. Urinary frequency-history of UTI-culture urine Dizziness-check labs Left foot pain-refer to Dr Girard . Conjunctival hemorrhage-hold asa x 3 days-avoid nose blowing-follow up in 1 week Hypertension - well controlled - continue with current medications, continue with no added salt diet. Pt has been encouraged to exercise daily. The pt has been advised to call the office if there are any acute concerns about change in blood pressure readings at home. Chronic renal disease-check labs at appt in 1 week . Hypertension - well controlled - continue with current medications, continue with no added salt diet. Pt has been encouraged to exercise daily. The pt has been advised to call the office if there are any acute concerns about change in blood pressure readings at home. Anemia - Weakness - check labs today. Muscle weakness is improving - continue with activity at home. Chronic renal disease - pt to keep appt with Information Systems Auditor. . Hypertension - well controlled - continue with current medications, continue with no added salt diet. Pt has been encouraged to exercise daily. The pt has been advised to call the office if there are any acute concerns about change in blood pressure readings at home. Renal failure - chronic - continue with supportive care. Anemia - hgb stable - repeat labs in 1 month. Weakness - continue with physical therapy x 2 more weeks. Due for cholesterol panel-RX provided. . Hypertension - fairly well controlled - continue with current medications, continue with no added salt diet. Pt has been encouraged to exercise daily. The pt has been advised to call the office if there are any acute concerns about change in blood pressure readings at home. Esophageal Reflux - the patient has been counseled against excessive intake of caffiene, spicy foods, peppermint, and cinnamon - all of which can exacerbate esophageal reflux. The patient is to take medications as prescribed and call the office if the symptoms are not improving. Keep appointment with Dr. Wallace tomorrow for evaluation of hiatal hernia. Monitor your blood pressure at home and record. Bring in your readings to your next appointment, or as directed. Call for chest pain, shortness of breath, headaches, or other concerns.. Hypertension - uncontrolled - INSTRUCTED PATIENT'S GRANDDAUGHTER TO CALL WITH GENA'S MEDICATIONS-PATIENT IS UNSURE HOW MUCH METOPROLOL SHE IS TAKING. Follow up in 3 weeks with blood pressure log. The patient has been counseled to cut back on salt in diet for a no added salt diet, low fat diet, start an exercise program with low weight bearing exercises and higher aerobic activity for heart health. The patient is to check blood pressure readings as an outpatient and either fax , call, or email the readings to the office next week for practicioner to review. The pt is to call for acute concerns. Cough-recent hghjthxma-avmspoknu-icbuzajb symbicort and spiriva as previously directed. Depression-fialry well controlloed-no changes at this time. . Hypertension - well controlled - continue with current medications, continue with no added salt diet. Pt has been encouraged to exercise daily. The pt has been advised to call the office if there are any acute concerns about change in blood pressure readings at home. Chronic renal disease - stable - continue with current management. Anemia - check labs in 2 weeks. Generalized weakness - supportive care, physical therapy. . Joint Injection - Pt was given post - injection instructions. The pt has been advised to use antiinflammatories post injection today, ice to the injected site, call if redness, warmth, or increased pain occurs at the site of injection. Hypertension - well controlled - continue with current medications, continue with no added salt diet. Pt has been encouraged to exercise daily. The pt has been advised to call the office if there are any acute concerns about change in blood pressure readings at home. . Hypertension - uncontrolled - the patient's medications have been modified as documented in the visit note. The patient has been counseled to cut back on salt in diet for a no added salt diet, low fat diet, start an exercise program with low weight bearing exercises and higher aerobic activity for heart health. The patient is to check blood pressure readings as an outpatient and either fax , call, or email the readings to the office next week for practicioner to review. The pt is to call for acute concerns. COPD - chronic problem for this patient. We have reviewed chronic treatment strategy, symptom control, and plans for acute exacerbations. No changes today to the current treatment plan as the patient is stable, monitor for acute changes. Chronic Depression and anxiety - the pt has symptoms of chronic anxiety and depression that have been fairly well controlled since the last office visit. The pt has expected periods of exacerbation with abatement of the symptoms with change in situational exposure. No change in current medications. Recommend power pudding-start with 2 TSP daily but you may increase as needed for soft stools I sent your prescriptions to [facility]-start today. . Hypertension - well controlled - continue with current medications, continue with no added salt diet. Pt has been encouraged to exercise daily. The pt has been advised to call the office if there are any acute concerns about change in blood pressure readings at home. URI/cough- Pt advised to increase fluids, vitamin C. Discussed natural and expected course of this diagnosis and need to alert me if symtpoms do not follow expected course, or if any worse. RX sent to patient's pharmacy. Chest xray at the hospital to r/o acute abnormality. Constipation - uncontrolled - I have discussed with the patient the need for adequate fiber and water intake to facilitate soft, easily passed stools. The pt noted understanding of our conversation. I have given the patient a recipe for "power pudding" - equal parts, bran flakes, prune juice, and apple sauce. The pt is to call if symptoms not improved on this regimen. . Hypertension - well controlled - continue with current medications, continue with no added salt diet. Pt has been encouraged to exercise daily. The pt has been advised to call the office if there are any acute concerns about change in blood pressure readings at home. Anemia - recommended pt to have iron studies and repeat CBC. Chronic Depression and anxiety - the pt has symptoms of chronic anxiety and depression that have been fairly well controlled since the last office visit. The pt has expected periods of exacerbation with abatement of the symptoms with change in situational exposure. No change in current medications. . Hypertension - well controlled - continue with current medications, continue with no added salt diet. Pt has been encouraged to exercise daily. The pt has been advised to call the office if there are any acute concerns about change in blood pressure readings at home. COPD - chronic problem for this patient. We have reviewed chronic treatment strategy, symptom control, and plans for acute exacerbations. No changes today to the current treatment plan as the patient is stable, monitor for acute changes. Hyperlipidemia - check cholesterol panel and a chem panel this week - the pt to come back on Monday morning for labs to be drawn. Pt wants a less expensive cholesterol medication - pt states that trilipix is too expensive at 20$ per month. . Hypertension - well controlled - continue with current medications, continue with no added salt diet. Pt has been encouraged to exercise daily. The pt has been advised to call the office if there are any acute concerns about change in blood pressure readings at home. Arthritis- occasionally uncontrolled symptoms- recommend pt to take antiinflammatory as directed for pain control. Use tylenol for break through pain symptoms. Joint Injection - Pt was given post - injection instructions. The pt has been advised to use anti-inflammatories post injection today, ice to the injected site, call if redness, warmth, or increased pain occurs at the site of injection. COPD - stable symptoms - continue with current use of albuterol and symbicort. . Rectal bleeding post colonoscopy - discussed with Dr. Garcia - will order CBC with type and screen and treat as indicated - pt is to follow up with her surgeon YUDITH. Pt is to go to the ER with any acute changes or concerns. Pt is to notify clinic or go to the ER if symptoms do not improve, if they worsen, or with any changes, questions, or concerns. . Hypertension - well controlled - continue with current medications, continue with no added salt diet. Pt has been encouraged to exercise daily. The pt has been advised to call the office if there are any acute concerns about change in blood pressure readings at home. Weakness - falling at home - referral to [facility] for eval and treat. Skin lesion - use neosporin on skin lesion until healed. . Joint Injection - Pt was given post - injection instructions. The pt has been advised to use antiinflammatories post injection today, ice to the injected site, call if redness, warmth, or increased pain occurs at the site of injection. Hypertension - well controlled - continue with current medications, continue with no added salt diet. Pt has been encouraged to exercise daily. The pt has been advised to call the office if there are any acute concerns about change in blood pressure readings at home. Go over to the hospital for blood work and to get the speciman containers to check your stools for blood. STOP OMEPRAZOLE, start nexium 40mg daily Increase your intake of fluids-water and gatorade. Plan to check labs today.. Hypertension - well controlled - continue with current medications, continue with no added salt diet. Pt has been encouraged to exercise daily. The pt has been advised to call the office if there are any acute concerns about change in blood pressure readings at home. Anemia-check CBC and stools for occult blood Chronic renal disease-labs stable-keep appt with elder assistant Esophageal Reflux - the patient has been counseled against excessive intake of caffiene, spicy foods, peppermint, and cinnamon - all of which can exacerbate esophageal reflux. The patient is to take medications as prescribed and call the office if the symptoms are not improving. . Hypertension - well controlled - continue with current medications, continue with no added salt diet. Pt has been encouraged to exercise daily. The pt has been advised to call the office if there are any acute concerns about change in blood pressure readings at home. COPD - chronic problem for this patient. We have reviewed chronic treatment strategy, symptom control, and plans for acute exacerbations. No changes today to the current treatment plan as the patient is stable, monitor for acute changes. Hypoxemia-oxygen testing today in the office-patient oxygen saturation 96% on room air at rest. Oxygen saturation dropped to 87% with exercise but improved to 96% with 2L/minute. Will fax office note to patient's oxygen supply company. Depression-on vrmpev-daazqu-aaghvuf to look to make sure she is still taking celexa/citalopram . Hypertension - well controlled - continue with current medications, continue with no added salt diet. Pt has been encouraged to exercise daily. The pt has been advised to call the office if there are any acute concerns about change in blood pressure readings at home. COPD - chronic problem for this patient. We have reviewed chronic treatment strategy, symptom control, and plans for acute exacerbations. No changes today to the current treatment plan as the patient is stable, monitor for acute changes. Hypoxemia-oxygen testing today in the office-patient oxygen saturation 96% on room air at rest. Oxygen saturation dropped to 87% with exercise but improved to 96% with 2L/minute. Will fax office note to patient's oxygen supply company. Depression-on [id number] to look to make sure she is still taking celexa/citalopram . Hypertension - well controlled - continue with current medications, continue with no added salt diet. Pt has been encouraged to exercise daily. The pt has been advised to call the office if there are any acute concerns about change in blood pressure readings at home. Abnormal weight loss-improved with increased intake . COPD - chronic problem for this patient. We have reviewed chronic treatment strategy, symptom control, and plans for acute exacerbations. No changes today to the current treatment plan as the patient is stable, monitor for acute changes. Hypertension - well controlled - continue with current medications, continue with no added salt diet. Pt has been encouraged to exercise daily. The pt has been advised to call the office if there are any acute concerns about change in blood pressure readings at home. Patient is medicalloy optimized for foot surgery with Dr Daniels. . Costochondritis - pt to use anti-inflammatories as directed.. Pt is to call if the chest pain does not improve. CHEST XRAY TODAY AT [facility] TO R/O RIB FRACTURE. Shoulder pain - recommended patient to use muscle rub on shoulder, call if not continuing to improve. Skin lesion - CONTINUE ON DOXYCYCLINE PRESCRIBED ON MONDAY. Keep appt with Dr. King for cardiac evaluation for pre- surgial evaluation. The description by the GI specialist report is one of a very large hiatal hernia that slides into and out of your chest. This is part of the cause for your chronic cough.. The stomach cannot contain the acid while it is in your chest and I suspect that you are inhaling some of the acid. Cut back on acid containing foods, try to avoid peppermint, caffeine, cinnamon, and if the symptoms worsen, call the office.. Hypertension - well controlled - continue with current medications, continue with no added salt diet. Pt has been encouraged to exercise daily. The pt has been advised to call the office if there are any acute concerns about change in blood pressure readings at home. Esophageal Reflux - the patient has been counseled against excessive intake of caffiene, spicy foods, peppermint, and cinnamon - all of which can exacerbate esophageal reflux. The patient is to take medications as prescribed and call the office if the symptoms are not improving.. Keep taking omeprazole. . Hypertension - well controlled - continue with current medications, continue with no added salt diet. Pt has been encouraged to exercise daily. The pt has been advised to call the office if there are any acute concerns about change in blood pressure readings at home. Anemia-check labs . Hypertension - well controlled - continue with current medications, continue with no added salt diet. Pt has been encouraged to exercise daily. The pt has been advised to call the office if there are any acute concerns about change in blood pressure readings at home. Diarrhea - check repeat cdiff - suspect the patient's diarrhea is post cholecystectomy diarrhea - [facility]. Blister on heel - continue with meplex dressing until healed. improve heel protection. COPD - continue with supportive care. Take Omeprazole twice a day for a week and let us know if it helps the abdominal discomfort. . HTN-elevated today-monitor at home and follow up in 1 month Esophageal Reflux - the patient has been counseled against excessive intake of caffeine, spicy foods, peppermint, and cinnamon - all of which can exacerbate esophageal reflux. The patient is to take medications as prescribed and call the office if the symptoms are not improving. Take Omeprazole twice a day for a week and let us know if it helps the abdominal discomfort. . HTN-elevated today-monitor at home and follow up in 1 month Esophageal Reflux - the patient has been counseled against excessive intake of caffeine, spicy foods, peppermint, and cinnamon - all of which can exacerbate esophageal reflux. The patient is to take medications as prescribed and call the office if the symptoms are not improving. Take Omeprazole twice a day for a week and let us know if it helps the abdominal discomfort. . HTN-elevated today-monitor at home and follow up in 1 month Esophageal Reflux - the patient has been counseled against excessive intake of caffeine, spicy foods, peppermint, and cinnamon - all of which can exacerbate esophageal reflux. The patient is to take medications as prescribed and call the office if the symptoms are not improving. . Low back pain- the patient was instructed in appropriate posture, need for weight loss to alleviate abdominal obesity that is worsening the patient's back pain.. The pt is to use prn antiinflammatories to manage acute pain. The patient is to call the office if the pain is worsening or does not improve. ordered xrays of hips and pelvis to be done today Probiotic over the counter - twice a day while on the antibiotic.. Pneumonia - Pt has been diagnosed with pneumonia by physical exam. Will order chest x-ray if needed. Abx have been sent to pharmacy. The pt is aware of the diagnosis and the need for acute treatment of this illness. Increase iron to one pill twice daily - take orange juice - do not take at the same time as a calcium supplement. . Anemia - iron deficiency - pt to do as follows: Increase iron to one pill twice daily - take orange juice - do not take at the same time as a calcium supplement. HTN - controlled - no changes to medication at this time. Plantar Fasciitis - recommended pt to stretch feet at night - needs to use cold water bottle/iced water bottle - roll under feet to improve inflammation in her feet and stretch feet at the same time. Pt is not a great candidate for anti-inflammation due to her renal function being less than optimal. Dysuria - negative ua. . PNEUMONIA - PT IS CLINICALLY SYMPTOMATIC FOR PNEUMONIA - A CHEST XRAY, SPUTUM C AND S, BLOOD CULTURES, AND LABS HAVE BEEN ORDERED IN ORDER TO FURTHER WORK-UP THE ACUTE ILLNESS. Shingles - Herpes Zoster - acute in onset - pt started on acyclovir, admitted to hospital, started on oral acyclovir, the pt is to be considered contagious. Hypertension - well controlled - continue with current medications, continue with no added salt diet. Pt has been encouraged to exercise daily. The pt has been advised to call the office if there are any acute concerns about change in blood pressure readings at home. Hypoxemia - treat with oxygen, start breathing treatment. . Hypertension - well controlled - continue with current medications, continue with no added salt diet. Pt has been encouraged to exercise daily. The pt has been advised to call the office if there are any acute concerns about change in blood pressure readings at home. Renal insufficiency - stable - continue with pushing fluids and current medication regimen. Ankle - improved - continue with use of cane UA - negative Pt states that she only has a window air conditioning unit - she uses it only in her living room - she admits to sweating a lot at night and during the day. Dysuria - pt needs a ua today. Repeat UA check labs MONITOR BLOOD PRESSURE AND PULSE AT HOME AND BRING IN READINGS TO NEXT APPT . Hypertension - elevated today but patient did not take medications before coming to appt-continue to monitor The patient has been counseled to cut back on salt in diet for a no added salt diet, low fat diet, start an exercise program with low weight bearing exercises and higher aerobic activity for heart health. The patient is to check blood pressure readings as an outpatient and either fax , call, or email the readings to the office next week for practitioner to review. The pt is to call for acute concerns. UTI-repeat UA-negative today in the office Anemia in chronic renal disease-check labs decrease lasix to 1/2 pill a day - if the swelling is bad - okay to take a full pill up to 4 days a week . Hypertension - well controlled - continue with current medications, continue with no added salt diet. Pt has been encouraged to exercise daily. The pt has been advised to call the office if there are any acute concerns about change in blood pressure readings at home. Chronic renal disease - labs to be sent to elder assistant. Anemia in chronic disease - serial labs to be done in 4 months glucosamine and chondroiton - over the counter joint supplement - (brand names - joint juice, joint ease) . Hypertension - well controlled - continue with current medications, continue with no added salt diet. Pt has been encouraged to exercise daily. The pt has been advised to call the office if there are any acute concerns about change in blood pressure readings at home. Hyperlipidemia - pt has been counseled about appropriate diet, exercise, and need for low fat food choices. I have discussed the need for the patient to take medications as prescribed. If the patient has negative side effects from the medication, they are to CALL the office and not abruptly discontinue the medication without discussion with a practitioner in the office. We will check labs in 3-6 months for follow up on the patient's chronic medical problem and to assure normal liver response to medications. COPD - chronic problem for this patient. We have reviewed chronic treatment strategy, symptom control, and plans for acute exacerbations. No changes today to the current treatment plan as the patient is stable, monitor for acute changes. OA - treatment with rubs, exercise, call if not improving. . Rectal bleeding post colonoscopy - discussed with Dr. Garcia - will order CBC with type and screen and treat as indicated - pt is to follow up with her surgeon YUDITH. Pt is to go to the ER with any acute changes or concerns. Pt is to notify clinic or go to the ER if symptoms do not improve, if they worsen, or with any changes, questions, or concerns. Bactroban ointment to left nare twice daily x 1 week. Return in 1 week for follow up. Monitor your blood pressure at home and record. Bring in your readings to your next appointment, or as directed. Call for chest pain, shortness of breath, headaches, or other concerns. Labs due-RX provided and instructed to return next week to discuss. . Hypertension - fairly well controlled - continue with current medications, continue with no added salt diet. Pt has been encouraged to exercise daily. The pt has been advised to call the office if there are any acute concerns about change in blood pressure readings at home. Nasal lesion-bactroban ointment sent to patient's pharmacy-instructed on use- return in 1 week for re-eval. . Gait instability with Sciatica - pt has been on a steroid course - has not had much improvement in pain - recommended that she use a walker - will order a 4 wheeled walker for her to use - and RX given to pt for this type of walker - pt given RX for back and si joint xrays as well as right hip xray. Hypertension - well controlled - continue with current medications, continue with no added salt diet. Pt has been encouraged to exercise daily. The pt has been advised to call the office if there are any acute concerns about change in blood pressure readings at home. . Hypertension - uncontrolled - the patient's medications have been modified as documented in the visit note. The patient has been counseled to cut back on salt in diet for a no added salt diet, low fat diet, start an exercise program with low weight bearing exercises and higher aerobic activity for heart health. The patient is to check blood pressure readings as an outpatient and either fax , call, or email the readings to the office next week for practicioner to review. The pt is to call for acute concerns. PT TO CONTINUE WITH NORVASC, RECOMMEND INCREASE OF THE TOPROL TO A FULL PILL IN THE MORNING AND 1/2 pillAT BEDTIME. . Hypertension - well controlled - continue with current medications, continue with no added salt diet. Pt has been encouraged to exercise daily. The pt has been advised to call the office if there are any acute concerns about change in blood pressure readings at home. Weight loss - recommended pt to eat multiple small meals and snacks daily to help to bolster weight. . Hypertension - well controlled - continue with current medications, continue with no added salt diet. Pt has been encouraged to exercise daily. The pt has been advised to call the office if there are any acute concerns about change in blood pressure readings at home. COPD - chronic problem for this patient. We have reviewed chronic treatment strategy, symptom control, and plans for acute exacerbations. No changes today to the current treatment plan as the patient is stable, monitor for acute changes. . Shoulder pain - recommended patient to use muscle rub on shoulder, call if not continuing to improve. Skin lesion - pt started to have pain and worsening of lesion after dog scratched the site - recommended to start on doxycycline 100mg bid. INCREASE ALBUTEROL TO THREE TIMES DAILY FOR THE NEXT WEEK . COPD EXACERBATION - COPD is a chronic problem for this patient, however, the pt is experiencing an acute exacerbation of the COPD. Pt is to receive appropriate treatment as an out patient, but the pt is aware that if symptoms worsen or do not improve, to call YUDITH for instructions, or go to the EMERGENCY ROOM if the symptoms are beyond acute control with rescue medications. We have reviewed chronic treatment strategy, symptom control, and plans for acute exacerbations. No changes today to the current treatment plan as the patient is stable, monitor for acute changes. Weight loss-patient not eating regular meals-instructed her to start eating breakfast, lunch and dinner. Follow up in 1 month. . Hypertension - well controlled - continue with current medications, continue with no added salt diet. Pt has been encouraged to exercise daily. The pt has been advised to call the office if there are any acute concerns about change in blood pressure readings at home. Hyperlipidemia - pt has been counseled about appropriate diet, exercise, and need for low fat food choices. I have discussed the need for the patient to take medications as prescribed. If the patient has negative side effects from the medication, they are to CALL the office and not abruptly discontinue the medication without discussion with a practicioner in the office. We will check labs in 3-6 months for follow up on the patient's chronic medical problem and to assure normal liver response to medications. Arthritis- occasionally uncontrolled symptoms- recommend pt to take antiinflammatory as directed for pain control. Use tylenol for break through pain symptoms. . Hypertension - well controlled - continue with current medications, continue with no added salt diet. Pt has been encouraged to exercise daily. The pt has been advised to call the office if there are any acute concerns about change in blood pressure readings at home. COPD - chronic problem for this patient. We have reviewed chronic treatment strategy, symptom control, and plans for acute exacerbations. No changes today to the current treatment plan as the patient is stable, monitor for acute changes. Pruritis - on arms only - over sun exposed tissue - pt to try a different lotion to attempt to control her symptoms. This pruritis is likely due to medication reaction. Follow up 07/26/[address] Garcia as scheduled. Monitor blood pressure and pulse at home daily and record. Bring to your next appointment for reveiw. Recommend coricidin HBP-it's over the counter. May use nasal saline rinses as well. I sent a prescription for zithromax to [facility]. You will take 2 pills today and then 1 pill for the next 4 days-total of 5 days. . DX sinusitis - discussed expected course with the patient, pt advised to call for worsening symptoms, or lack of improvement on prescribed treatment course. Hypertension - uncontrolled - elevated in the office today. The patient has been counseled to cut back on salt in diet for a no added salt diet, low fat diet, start an exercise program with low weight bearing exercises and higher aerobic activity for heart health. The patient is to check blood pressure readings as an outpatient and either fax , call, or email the readings to the office next week for practicioner to review. The pt is to call for acute concerns. . Hypertension - well controlled - continue with current medications, continue with no added salt diet. Pt has been encouraged to exercise daily. The pt has been advised to call the office if there are any acute concerns about change in blood pressure readings at home. COPD - chronic problem for this patient. We have reviewed chronic treatment strategy, symptom control, and plans for acute exacerbations. No changes today to the current treatment plan as the patient is stable, monitor for acute changes. Nocturnal hypoxemia-wearing oxygen at 2L at night and continues to benefit from therapy. . Hypertension - well controlled - continue with current medications, continue with no added salt diet. Pt has been encouraged to exercise daily. The pt has been advised to call the office if there are any acute concerns about change in blood pressure readings at home. Hyperlipidemia - pt has been counseled about appropriate diet, exercise, and need for low fat food choices. I have discussed the need for the patient to take medications as prescribed. If the patient has negative side effects from the medication, they are to CALL the office and not abruptly discontinue the medication without discussion with a practicioner in the office. We will check labs in 3-6 months for follow up on the patient's chronic medical problem and to assure normal liver response to medications. Renal insufficiency- check labs today. Nighttime hypoxemia- rx for oxygen given to pt . Hypertension - well controlled - continue with current medications, continue with no added salt diet. Pt has been encouraged to exercise daily. The pt has been advised to call the office if there are any acute concerns about change in blood pressure readings at home. Renal disease - continue with supportive care and nephrology management. Diarrhea - stop PPI - continue to monitor, call if not improving. If diarrhea not improving - pt to call office and we will consider starting her on irritable bowel medication. I have recommended pt to stay at assisted living as she does not feel safe at home. SYMBICORT ANTIBIOTIC FOR PNEUMONIA LEFT LUNG ENSURE . Hypertension - not well controlled but patient has been out of amlodipine- will pick it up today - continue with current medications, continue with no added salt diet. Pt has been encouraged to exercise daily. The pt has been advised to call the office if there are any acute concerns about change in blood pressure readings at home. Pneumonia - Pt has been diagnosed with pneumonia by physical exam. A chest xray has been ordered as have antibiotics. The pt is aware of the diagnosis and the need for acute treatment of this illness. Weight loss-suspect due to decreased intake-start ensure shakes-samples provided to try-follow up in 2 weeks . HTN - uncontrolled - monitor blood pressure at home, decrease sodium in diet. Renal failure - chronic in nature, stable at this time. Monitor labs, call if symptoms are not improving. . Diarrhea - advised pt to have scheduled Lomotil. Renal disease - continue with supportive care - monitor symptoms -monitor labs. Edema - continue with low dose prn lasix and compression socks. Generalized weakness - fatigue - recommended patient to continue with physical therapy -plan on discharge to home with home health on 05/31/17. . COPD EXACERBATION - COPD is a chronic problem for this patient, however, the pt is experiencing an acute exacerbation of the COPD. Pt is to receive appropriate treatment as an out patient, but the pt is aware that if symptoms worsen or do not improve, to call YUDITH for instructions, or go to the EMERGENCY ROOM if the symptoms are beyond acute control with rescue medications. We have reviewed chronic treatment strategy, symptom control, and plans for acute exacerbations. No changes today to the current treatment plan as the patient is stable, monitor for acute changes. I have recommended nebulizer treatments . Hypertension - well controlled at home per pt report, continue with current medications, continue with no added salt diet. Pt has been encouraged to exercise daily. The pt has been advised to call the office if there are any acute concerns about change in blood pressure readings at home. Hyperlipidemia - pt has been counseled about appropriate diet, exercise, and need for low fat food choices. I have discussed the need for the patient to take medications as prescribed. If the patient has negative side effects from the medication, they are to CALL the office and not abruptly discontinue the medication without discussion with a practicioner in the office. We will check labs in 3-6 months for follow up on the patient's chronic medical problem and to assure normal liver response to medications. Joint Injection - Pt was given post - injection instructions. The pt has been advised to use antiinflammatories post injection today, ice to the injected site, call if redness, warmth, or increased pain occurs at the site of injection.
--- OUTSIDE RECORDS SUMMARY | 2017-12-14 14:11 | XMS REPORT | Continuity of Care Document ---
Author Author [facility] Organization [facility] Address Unknown Phone Unavailable Allergies Active Description Code Type Severity Reaction Onset Reported/Identified Relationship to Patient Clinical Status Yes codeine [id number] Drug Allergy Unknown N/A 12/18/2008 Yes morphine [id number] Drug Allergy Unknown N/A 12/18/2008 Yes sulfamethoxazole [id number] Drug Allergy Unknown N/A 12/18/2008 Yes trimethoprim [id number] Drug Allergy Unknown N/A 12/18/2008 Yes prednisone [id number] Drug Allergy Unknown N/A 03/19/2014 Yes propoxyphene napsylate [id number] Drug Allergy Unknown N/A 03/19/2014 Medications There is no data. Problems Date Dx Coded Attending Type Code Diagnosis Diagnosed By 06/21/2011 Ot 272.4 HYPERLIPIDEMIA NEC/NOS 06/21/2011 Ot 388.01 PRESBYACUSIS 06/21/2011 Ot 403.90 HYPTNSV CHR KID DIS, UNSPEC, W CHR KD ST 06/21/2011 Ot 414.01 CORONARY ATHEROSCLEROSIS OF [place] CORON 06/21/2011 Ot 433.10 CAROTID ARTERY OCCLUSION W O CEREBRAL IN 06/21/2011 Ot 530.81 ESOPHAGEAL REFLUX 06/21/2011 Ot 553.3 DIAPHRAGMATIC HERNIA 06/21/2011 Ot 585.9 CHRONIC KIDNEY DISEASE, UNSPECIFIED 06/21/2011 Ot 715.90 OSTEOARTHROS NOS-UNSPEC 06/21/2011 Ot 760.9 MATERNAL COND NOS AFF NB 06/21/2011 Ot 794.31 ABNORM ELECTROCARDIOGRAM 06/21/2011 Ot 799.02 HYPOXEMIA 06/21/2011 Ot V46.2 SUPPLEMENTAL OXYGEN 06/21/2011 Ot V58.66 LONG-TERM ( CURRENT) USE OF ASPIRIN 06/21/2011 Ot V58.69 OTH MED,LT, CURRENT USE 08/20/2011 Ot 272.4 HYPERLIPIDEMIA NEC/NOS 08/20/2011 Ot 275.2 DIS MAGNESIUM METABOLISM 08/20/2011 Ot 276.8 HYPOPOTASSEMIA 08/20/2011 Ot 311 DEPRESSIVE DISORDER NEC 08/20/2011 Ot 403.90 HYPTNSV CHR KID DIS, UNSPEC, W CHR KD ST 08/20/2011 Ot 414.01 CORONARY ATHEROSCLEROSIS OF [place] CORON 08/20/2011 Ot 486 PNEUMONIA, ORGANISM NOS 08/20/2011 Ot 553.3 DIAPHRAGMATIC HERNIA 08/20/2011 Ot 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 08/20/2011 Ot 585.9 CHRONIC KIDNEY DISEASE, UNSPECIFIED 08/20/2011 Ot V64.41 LAPAROSCOPIC SURGICAL PROC CONVERTED TO 08/25/2011 Ot 112.0 THRUSH 08/25/2011 Ot 272.4 HYPERLIPIDEMIA NEC/NOS 08/25/2011 Ot 275.2 DIS MAGNESIUM METABOLISM 08/25/2011 Ot 276.8 HYPOPOTASSEMIA 08/25/2011 Ot 285.9 ANEMIA NOS 08/25/2011 Ot 311 DEPRESSIVE DISORDER NEC 08/25/2011 Ot 403.90 HYPTNSV CHR KID DIS, UNSPEC, W CHR KD ST 08/25/2011 Ot 414.01 CORONARY ATHEROSCLEROSIS OF [place] CORON 08/25/2011 Ot 486 PNEUMONIA, ORGANISM NOS [...] ST 11/12/2012 Ot 414.01 CORONARY ATHEROSCLEROSIS OF [place] CORON 11/12/2012 Ot 496 CHR AIRWAY OBSTRUCT NEC 11/12/2012 Ot 553.21 INCISIONAL HERNIA 11/12/2012 Ot 568.0 PERITONEAL VXJCZEITS-AARW-DT/INF 11/12/2012 Ot 585.9 CHRONIC KIDNEY DISEASE, UNSPECIFIED [...] 715.90 OSTEOARTHROS NOS-UNSPEC 05/30/2013 SILVIANO SOSA MD A Ot 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 05/30/2013 SILVIANO SOSA MD A Ot 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, BENIGN, W CHR KD ST 05/30/2013 SILVIANO SOSA MD A Ot 585.3 CHRONIC KIDNEY DISEASE, STAGE III (MODER 05/30/2013 SILVIANO SOSA MD A Ot 588.0 RENAL OSTEODYSTROPHY 05/30/2013 SILVIANO SOSA MD A Ot 791.0 PROTEINURIA 08/30/2013 MATILDE UNDERWOOD DPM [...] STOVER, SILVIANO A Ot 285.21 12/10/2014 IAN STOVER, SILVIANO A Ot 403.10 12/10/2014 IAN STOVER, SILVIANO A Ot 585.3 12/10/2014 IAN STOVER, SILVIANO A Ot 588.0 12/10/2014 IAN STOVER, SILVIANO A Ot 791.0 01/12/2015 Ot 429.3 01/12/2015 Ot 786.52 01/12/2015 Ot E000.8 01/12/2015 Ot E888.9 01/16/2015 Ot 429.3 01/16/2015 Ot 786.52 01/16/2015 Ot E000.8 01/16/2015 Ot E888.9 01/27/2015 Ot 429.3 01/27/2015 Ot 786.52 01/27/2015 Ot E000.8 01/27/2015 Ot E888.9 04/08/2015 NEW, KEITH VidalStephen SMOKING PIPE DRILLER AND THREADER-C Ot 268.9 04/08/2015 NEW, KEITH VidalStephen S[employer]KING PIPE [employer]-C Ot 285.21 04/08/2015 NEW, KEITH GStephen S[employer]KING PIPE [employer]ER-C Ot 403.10 04/08/2015 NEW, KEITH YoungStephen S[employer]KING PIPE [employer] AND THREADER-C Ot 585.3 04/08/2015 NEW, KEITH YoungStephen S[employer]KING PIPE D[employer] AND TH[employer]ER-C Ot 588.0 04/08/2015 NEW, KEITH VidalStephen S[employer]KING PIPE D[employer] AND TH[employer]ER-C Ot 790.21 04/08/2015 NEW, KEITH GStephen SMOKING PIPE DRI[employer] AND THREADER-C Ot 791.0 05/06/2015 NEW, KEITH YoungStephen SMOKING PIPE DRI[employer] AND TH[employer]ER-C Ot 268.9 05/06/2015 NEW, KEITH YoungStephen SMOKING PIPE D[employer] AND TH[employer]ER-C Ot 285.21 05/06/2015 NEW, KEITH GStephen SMOKING PIPE DRI[employer] AND THREADER-C Ot 403.10 05/06/2015 NEW, KEITH So S[employer]KING PIPE DRI[employer] AND TH[employer]ER-C Ot 585.3 05/06/2015 NEW, KEITH YoungStephen SMOKING PIPE DRI[employer] AND THREADER-C Ot 588.0 05/06/2015 NEWKEITHStephen SMOKING PIPE DRILLER AND THREADER-C Ot 790.21 05/06/2015 NEW, KEITH ViadlStephen SMOKING PIPE DRILLER AND THREADER-C Ot 791.0 05/31/2015 NEW, KEITH VidalStephen SMOKING PIPE DRI[employer] AND THREADER-C Ot 268.9 VITAMIN D DEFICIENCY NOS 05/31/2015 NEW, KEITH Vidal. 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 S[employer]KING PIPE DRI[employer] THREADER-C Ot 585.3 CHRONIC KIDNEY DISEASE, STAGE III (MODER 05/31/2015 NEW, KEITH So S[employer]KING PIPE DRI[employer] AND TH[employer]ER-C Ot 588.0 RENAL OSTEODYSTROPHY 05/31/2015 NEW, KEITH GStephen SMOKING PIPE DRI[employer] AND TH[employer]ER-C Ot 790.21 IMPAIRED FASTING GLUCOSE 05/31/2015 NEW, KEITH So S[employer]KING PIPE DRI[employer] AND TH[employer]ER-C Ot 791.0 PROTEINURIA 07/09/2015 ADITHYA DORADO MD Ot 276.51 DEHYDRATION 07/09/2015 ESTRADA STOVER, ADITHYA A Ot 298.9 PSYCHOSIS NOS 07/09/2015 ESTRADA STOVER, ADITHYA A Ot 584.9 ACUTE RENAL FAILURE, UNSPECIFIED 07/09/2015 ADITHYA DORADO MD Ot 585.9 CHRONIC KIDNEY DISEASE, UNSPECIFIED 07/09/2015 ADITHYA DORADO MD Ot 599.0 URIN TRACT INFECTION NOS 07/09/2015 ADITHYA DORADO MD Ot 787.91 DIARRHEA 07/09/2015 ADITHYA DORADO MD Ot V04.81 ND FOR PROPHYLACTIC VACCIN AND INOCULATI 09/01/2015 NEW, KEITH So [employer] P[employer] D[employer] TH[employer]ER-C Ot D63.1 09/01/2015 NEW, KEITH So S[employer]KING PIPE DRI[employer] AND TH[employer]ER-C Ot E55.9 09/01/2015 NEW, KEITH Vidal. SMOKING PIPE DRILLER AND THREADER-C Ot E78.5 09/01/2015 NEW, KEITH G. SMOKING PIPE DRI[employer]ER AND THREADER-C Ot I12.9 09/01/2015 NEW, KEITH So SMOKING PIPE DRI[employer] AND THREADER-C Ot N18.3 09/01/2015 NEW, KEITH So SMOKING PIPE DRI[employer]ER AND THREADER-C Ot N25.0 09/01/2015 NEW, KEITH So SMOKING PIPE DRI[employer]ER AND THREADER-C Ot R73.01 09/01/2015 NEW, KEITH So SMOKING PIPE DRI[employer]ER AND THREADER-C Ot R80.9 01/25/2016 MIHAELA STOVER FACC, ALI FACP CCDS Ot I10 01/25/2016 MIHAELA STOVER FACC, ALI FACP CCDS Ot I25.10 01/25/2016 MIHAELA STOVER FACC, ALI FACP CCDS Ot R00.2 01/25/2016 MIHAELA STOVER FACC, ALI FACP CCDS Ot R06.02 01/25/2016 MIHAELA STOVER FACC, ALI FACP CCDS Ot R94.31 02/03/2016 Ot I10 ESSENTIAL ( PRIMARY) HYPERTENSION 02/03/2016 Ot I25.10 ATHSCL HEART DISEASE OF [place] CORONARY 02/03/2016 Ot R00.2 PALPITATIONS 02/03/2016 Ot R06.02 SHORTNESS OF BREATH 02/03/2016 Ot R94.31 ABNORMAL ELECTROCARDIOGRAM [ECG] [EKG] 02/11/2016 MIHAELA STOVER FACC, ALI FACP CCDS Ot I10 ESSENTIAL (PRIMARY) HYPERTENSION 02/11/2016 MIHAELA ALVARADOC, ALI FACP CCDS Ot I25.10 ATHSCL HEART DISEASE OF [place] CORONARY 02/11/2016 MIHAELA STOVER FACC, ALI FACP CCDS Ot R00.2 PALPITATIONS 02/11/2016 MIHAELA STOVER FACC, ALI FACP CCDS Ot R06.02 SHORTNESS OF BREATH 02/11/2016 MIHAELA STOVER FACC, ALI FACP CCDS Ot R94.31 ABNORMAL ELECTROCARDIOGRAM [ECG] [EKG] 02/17/2016 MIHAELA ALVARADOC, ALI FACP CCDS Ot I10 ESSENTIAL (PRIMARY) HYPERTENSION 02/17/2016 MIHAELA STOVER FACC, ALI FACP CCDS Ot I25.10 ATHSCL HEART DISEASE OF [place] CORONARY 02/17/2016 MIHAELA STOVER FACC, ALI FACP CCDS Ot R00.2 PALPITATIONS 02/17/2016 MIHAELA STOVER FACC, ALI FACP CCDS Ot R06.02 SHORTNESS OF BREATH 02/17/2016 MIHAELA STOVER FACC, ALI FACP CCDS Ot R94.31 ABNORMAL ELECTROCARDIOGRAM [ECG] [EKG] 04/01/2016 TAHIRA FISCHER DO Ot S20.211A CONTUSION OF RIGHT FRONT WALL OF THORAX, 04/01/2016 TAHIRA FISCHER DO Ot S40.011A CONTUSION OF RIGHT SHOULDER, INITIAL ENC 04/01/2016 TAHIRA FISCHER DO Ot W01.0XXA FALL SAME LEV FROM SLIP/TRIP W/O STRIKE 04/01/2016 TAHIRA FISCHER DO Ot Y92.[address] IN [facility] NON-INSTITUT (PRIVATE 04/01/2016 TAHIRA FISCHER DO Ot Y99.8 OTHER EXTERNAL CAUSE STATUS 04/01/2016 Ot 401.9 HYPERTENSION NOS 04/01/2016 Ot 553.20 VENTRAL HERNIA NOS 04/01/2016 Ot V72.63 PRE- PROCEDURAL LABORATORY EXAMINATION 04/01/2016 Ot V72.81 EXAM-PRE- OPERATIVE CARDIOVASCULAR 04/01/2016 Ot V74.8 SCREEN- BACTERIAL DIS NEC 04/01/2016 Ot 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 04/01/2016 Ot 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, BENIGN, W CHR KD ST 04/01/2016 Ot 585.3 CHRONIC KIDNEY DISEASE, STAGE III (MODER 04/01/2016 Ot 588.0 RENAL OSTEODYSTROPHY 04/01/2016 ADITHYA DORADO MD Ot 719.45 JOINT PAIN-PELVIS 04/01/2016 ADITHYA DORADO MD Ot 959.6 HIP THIGH INJURY NOS 04/01/2016 ADITHYA DORADO MD Ot E000.8 OTHER EXTERNAL CAUSE STATUS 04/01/2016 [...] Ot 791.0 PROTEINURIA 04/01/2016 SILVIANO SOSA MD Ot 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 04/01/2016 SILVIANO SOSA MD Ot 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, BENIGN, W CHR KD ST 04/01/2016 SILVIANO SOSA MD Ot 585.3 CHRONIC KIDNEY DISEASE, STAGE III (MODER 04/01/2016 SILVIANO SOSA MD Ot 588.0 RENAL OSTEODYSTROPHY 04/01/2016 SILVIANO SOSA MD Ot 791.0 PROTEINURIA 04/01/2016 SILVIANO SOSA MD Ot 585.4 CHRONIC KIDNEY DISEASE, STAGE IV (SEVERE 04/01/2016 UNDERWOOD DPM, MATILDE P Ot 735.4 OTHER HAMMER TOE 04/01/2016 YASMINE DPM, MATILDE P Ot V72.84 EXAM PRE-OPERATIVE NOS 04/01/2016 YASMINE DPM, MATILDE P Ot V74.8 SCREEN-BACTERIAL DIS NEC 04/01/2016 SILVIANO SOSA MD Ot 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 04/01/2016 SILVIANO SOSA MD Ot 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, BENIGN, W CHR KD ST 04/01/2016 SILVIANO SOSA MD Ot 585.3 CHRONIC KIDNEY DISEASE, STAGE III (MODER 04/01/2016 SILVIANO SOSA MD Ot 588.0 RENAL OSTEODYSTROPHY 04/01/2016 SILVIANO SOSA MD Ot 791.0 PROTEINURIA 04/01/2016 ADITHYA DORADO MD Ot 786.2 COUGH 04/01/2016 SILVIANO SOSA MD Ot 268.9 VITAMIN D DEFICIENCY NOS 04/01/2016 SILVIANO SOSA MD Ot 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 04/01/2016 ALEJANDRA SOSA MDETTE A Ot 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, BENIGN, W CHR KD ST 04/01/2016 SILVIANO SOSA MD Ot 585.3 CHRONIC KIDNEY DISEASE, STAGE III (MODER 04/01/2016 SILVIANO SOSA MD Ot 588.0 RENAL [...] CHRONIC KIDNEY DISEASE, STAGE III (MODER 04/01/2016 SILVIANO SOSA MD Ot 588.0 RENAL [...] CHRONIC KIDNEY DISEASE, STAGE III (MODER 04/01/2016 IAN STOVER, SILVIANO Peter Ot 588.0 RENAL OSTEODYSTROPHY 04/01/2016 SILVIANO SOSA MD Ot 791.0 PROTEINURIA 04/01/2016 Ot 429.3 CARDIOMEGALY 04/01/2016 Ot 786.52 PAINFUL RESPIRATION 04/01/2016 Ot E000.8 OTHER EXTERNAL CAUSE STATUS 04/01/2016 Ot E888.9 FALL NOS 04/01/2016 NEW, KEITH So S[employer]KING PIPE DRILLER AND THREADER-C Ot 268.9 VITAMIN D DEFICIENCY NOS 04/01/2016 NEW, KEITH G. 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 SMOKING PIPE DRILLER AND THREADER-C Ot 588.0 RENAL OSTEODYSTROPHY 04/01/2016 NEW KEITH G. SMOKING PIPE DRILLER AND THREADER-C Ot 790.21 IMPAIRED FASTING GLUCOSE 04/01/2016 NEW, KEITH G. SMOKING PIPE DRI[employer]ER AND THREADER-C Ot 791.0 PROTEINURIA 04/01/2016 NEW KEITH GStephen SMOKING PIPE DRILLER AND THREADER-C Ot 268.9 VITAMIN D DEFICIENCY NOS 04/01/2016 NEW KEITH G. 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 SMOKING PIPE DRILLER AND THREADER-C Ot 585.3 CHRONIC KIDNEY DISEASE, STAGE III (MODER 04/01/2016 NEW, KEITH G. SMOKING PIPE DRI[employer]ER AND THREADER-C Ot 588.0 RENAL OSTEODYSTROPHY 04/01/2016 NEW, KEITH G. SMOKING PIPE DRILLER AND THREADER-C Ot 790.21 IMPAIRED FASTING GLUCOSE 04/01/2016 NEW, KEITH G. SMOKING PIPE DRILLER AND THREADER-C Ot 791.0 PROTEINURIA 04/01/2016 NEW, KEITH G. SMOKING PIPE DRILLER AND THREADER-C Ot D63.1 ANEMIA IN CHRONIC KIDNEY DISEASE 04/01/2016 NEW KEITH G. SMOKING PIPE DRILLER AND THREADER-C Ot E55.9 VITAMIN D DEFICIENCY, UNSPECIFIED 04/01/2016 QUYNH KEITH VidalStephen SMOKING PIPE DRILLER AND THREADER-C Ot E78.5 HYPERLIPIDEMIA, UNSPECIFIED 04/01/2016 VENTURA BEAUCHAMPBrittani VidalStephen SMOKING PIPE DRILLER AND THREADER-C Ot I12.9 HYPERTENSIVE CHRONIC KIDNEY DISEASE W ST 04/01/2016 QUYNH KEITH VidalStephen SMOKING PIPE DRI[employer]ER AND THREADER-C Ot N18.3 CHRONIC KIDNEY DISEASE, STAGE 3 (MODERAT 04/01/2016 QUYNH KEITH VidalStephen SMOKING PIPE DRI[employer]ER AND THREADER-C Ot N25.0 RENAL OSTEODYSTROPHY 04/01/2016 QUYNH KEITH VidalStephen SMOKING PIPE DRILLER AND THREADER-C Ot R73.01 IMPAIRED FASTING GLUCOSE 04/01/2016 QUYNH KEITH VidalStephen SMOKING PIPE DRILLER AND THREADER-C Ot R80.9 PROTEINURIA, UNSPECIFIED 04/01/2016 Ot I10 ESSENTIAL ( PRIMARY) HYPERTENSION 04/01/2016 Ot I25.10 ATHSCL HEART DISEASE OF [place] CORONARY 04/01/2016 Ot R00.2 PALPITATIONS 04/01/2016 Ot R06.02 SHORTNESS OF BREATH 04/01/2016 Ot R94.31 ABNORMAL ELECTROCARDIOGRAM [ECG] [EKG] 04/01/2016 MIHAELA STOVER FACC, BETO FACP CCDS Ot I10 ESSENTIAL (PRIMARY) HYPERTENSION 04/01/2016 MIHAELA STOVER FACC, ALI FACP CCDS Ot I25.10 ATHSCL HEART DISEASE OF [place] CORONARY 04/01/2016 MIHAELA STOVER FACC, ALI FACP CCDS Ot R00.2 PALPITATIONS 04/01/2016 MIHAELA STOVER FACC, ALI FACP CCDS Ot R06.02 SHORTNESS OF BREATH 04/01/2016 MIHAELA STOVER FACC, ALI FACP CCDS Ot R94.31 ABNORMAL ELECTROCARDIOGRAM [ECG] [EKG] 04/01/2016 MIHAELA STOVER FACC, ALI FACP CCDS Ot I10 ESSENTIAL (PRIMARY) HYPERTENSION 04/01/2016 MIHAELA STOVER FACC, ALI FACP CCDS Ot I25.10 ATHSCL HEART DISEASE OF [place] CORONARY 04/01/2016 MIHAELA STOVER FACC, ALI FACP CCDS Ot R00.2 PALPITATIONS 04/01/2016 MIHAELA STOVER FACC, ALI FACP CCDS Ot R06.02 SHORTNESS OF BREATH 04/01/2016 MIHAELA STOVER FACC, ALI FACP CCDS Ot R94.31 ABNORMAL ELECTROCARDIOGRAM [ECG] [EKG] 04/01/2016 TAHIRA FISCHER DO Ot S20.211A CONTUSION OF RIGHT FRONT WALL OF THORAX, 04/01/2016 TAHIRA FISCHER DO Ot S40.011A CONTUSION OF RIGHT SHOULDER, INITIAL ENC 04/01/2016 TAHIRA FISCHER DO Ot W01.0XXA FALL SAME LEV FROM SLIP/TRIP W/O STRIKE 04/01/2016 TAHIRA FISCHER DO Ot Y92.[address] [facility] (PRIVATE 04/01/2016 TAHIRA FISCHER DO Ot Y99.8 OTHER EXTERNAL CAUSE STATUS 11/22/2016 Ot 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 11/22/2016 Ot 397.0 TRICUSPID VALVE DISEASE 11/22/2016 Ot 786.09 RESPIRATORY ABNORM NEC 11/22/2016 Ot 794.31 ABNORM ELECTROCARDIOGRAM 11/22/2016 Ot 786.09 RESPIRATORY ABNORM NEC 11/22/2016 Ot 794.31 ABNORM ELECTROCARDIOGRAM 11/22/2016 Ot V58.69 OTH MED,LT, CURRENT USE 11/22/2016 Ot V02.54 CARRIER, SUSP DELGADILLO METHICILLIN RESISTN S 11/22/2016 Ot 401.9 HYPERTENSION NOS 11/22/2016 Ot 553.3 DIAPHRAGMATIC HERNIA 11/22/2016 Ot V72.63 PRE- PROCEDURAL LABORATORY EXAMINATION 11/22/2016 Ot V74.8 SCREEN- BACTERIAL DIS NEC 11/22/2016 Ot 272.4 HYPERLIPIDEMIA NEC/NOS [...] Ot 786.2 COUGH 11/22/2016 Ot 920 CONTUSION FACE/ SCALP/NCK 11/22/2016 Ot E000.8 OTHER EXTERNAL CAUSE STATUS [...] 553.20 VENTRAL HERNIA NOS 11/22/2016 Ot V72.63 PRE- PROCEDURAL LABORATORY EXAMINATION 11/22/2016 Ot V72.81 EXAM-PRE- OPERATIVE CARDIOVASCULAR 11/22/2016 Ot V74.8 SCREEN- BACTERIAL DIS NEC 11/22/2016 Ot 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 11/22/2016 Ot 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, BENIGN, W CHR KD ST 11/22/2016 Ot 585.3 CHRONIC KIDNEY DISEASE, STAGE III (MODER 11/22/2016 Ot 588.0 RENAL OSTEODYSTROPHY 11/22/2016 ESTRADA STOVER, ADITHYA Peter Ot 719.45 JOINT PAIN-PELVIS 11/22/2016 ESTRADA STOVER, ADITHYA Peter Ot 959.6 HIP THIGH INJURY NOS 11/22/2016 ESTRADA STOVER, ADITHYA Peter Ot E000.8 OTHER EXTERNAL CAUSE STATUS 11/22/2016 [...] CHRONIC KIDNEY DISEASE, STAGE III (MODER 11/22/2016 SILVIANO SOSA MD Ot 588.0 RENAL OSTEODYSTROPHY 11/22/2016 SILVIANO SOSA MD Ot 791.0 PROTEINURIA 11/22/2016 SILVIANO SOSA MD Ot 585.4 CHRONIC KIDNEY DISEASE, STAGE IV (SEVERE 11/22/2016 UNDERWOOD DPM, MATILDE P Ot 735.4 [...] CHRONIC KIDNEY DISEASE, STAGE III (MODER 11/22/2016 SILVIANO SOSA MD Ot 588.0 RENAL OSTEODYSTROPHY 11/22/2016 SILVIANO SOSA MD Ot 791.0 PROTEINURIA 11/22/2016 ADITHYA DORADO MD Ot 786.2 COUGH 11/22/2016 SILVIANO SOSA MD Ot 268.9 VITAMIN D DEFICIENCY NOS 11/22/2016 SILVIANO SOSA MD A Ot 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 11/22/2016 SILVIANO SOSA MD Ot 403.10 HYPTNSV PSYCHIATRIC KID DIS, BENIGN, W CHR KD ST 11/22/2016 SILVIANO SOSA MD Ot 585.3 CHRONIC KIDNEY DISEASE, STAGE III (MODER 11/22/2016 SILVIANO SOSA MD Ot 588.0 RENAL [...] 11/22/2016 SILVIANO SOSA MD Ot 403.10 HYPTNSV PSYCHIATRIC KID DIS, BENIGN, W CHR KD ST 11/22/2016 SILVIANO SOSA MD Ot 585.3 CHRONIC KIDNEY DISEASE, STAGE III (MODER 11/22/2016 SILVIANO SOSA MD Ot 588.0 RENAL [...] CHRONIC KIDNEY DISEASE, STAGE III (MODER 11/22/2016 SILVIANO SOSA MD Ot 588.0 RENAL OSTEODYSTROPHY 11/22/2016 SILVIANO SOSA MD Ot 791.0 PROTEINURIA 11/22/2016 Ot 429.3 CARDIOMEGALY 11/22/2016 Ot 786.52 PAINFUL RESPIRATION 11/22/2016 Ot E000.8 OTHER EXTERNAL CAUSE STATUS 11/22/2016 Ot E888.9 FALL NOS 11/22/2016 NEWKEITH SMOKING PIPE DRILLER AND THREADER-C Ot 268.9 VITAMIN D DEFICIENCY NOS 11/22/2016 NEWKEITH. 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 SMOKING PIPE DRILLER AND THREADER-C Ot 588.0 RENAL OSTEODYSTROPHY 11/22/2016 NEWKEITH. SMOKING PIPE DRILLER AND THREADER-C Ot 790.21 IMPAIRED FASTING GLUCOSE 11/22/2016 KEITH BEAUCHAMP SMOKING PIPE DRILLER AND THREADER-C Ot 791.0 PROTEINURIA 11/22/2016 KEITH BEAUCHAMP. SMOKING PIPE DRILLER AND THREADER-C Ot 268.9 VITAMIN D DEFICIENCY NOS 11/22/2016 NEWKEITH G. SMOKING PIPE DRILLER AND THREADER-C Ot 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 11/22/2016 KEITH BEAUCHAMP 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, BENIGN, W CHR KD ST 11/22/2016 KEITH BEAUCHAMP. SMOKING PIPE DRILLER AND THREADER-C Ot 585.3 CHRONIC KIDNEY DISEASE, STAGE III (MODER 11/22/2016 NEWKEITH G. SMOKING PIPE DRILLER AND THREADER-C Ot 588.0 RENAL OSTEODYSTROPHY 11/22/2016 NEWKEITH G. SMOKING PIPE DRILLER AND THREADER-C Ot 790.21 IMPAIRED FASTING GLUCOSE 11/22/2016 KEITH BEAUCHAMP G. 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 Ot N18.3 CHRONIC KIDNEY DISEASE, STAGE 3 (MODERAT 11/22/2016 QUYNH KEITH So SMOKING PIPE DRI[employer]ER-C Ot N25.0 RENAL OSTEODYSTROPHY 11/22/2016 QUYNH KEITH So [employer]KING [employer]-C Ot R73.01 IMPAIRED FASTING GLUCOSE 11/22/2016 QUYNH KEITH So [employer]KING [employer]-C Ot R80.9 PROTEINURIA, UNSPECIFIED 11/22/2016 Ot I10 ESSENTIAL ( PRIMARY) HYPERTENSION 11/22/2016 Ot I25.10 ATHSCL HEART DISEASE OF [place] CORONARY 11/22/2016 Ot R00.2 PALPITATIONS 11/22/2016 Ot R06.02 SHORTNESS OF BREATH 11/22/2016 Ot R94.31 ABNORMAL ELECTROCARDIOGRAM [ECG] [EKG] 11/22/2016 MIHAELA STOVER FACC, BETO FACP CCDS Ot I10 ESSENTIAL (PRIMARY) HYPERTENSION 11/22/2016 MIHAELA STOVER FACC, BETO FACP CCDS Ot I25.10 ATHSCL HEART DISEASE OF [place] CORONARY 11/22/2016 MIHAELA STOVER FACC, BETO FACP CCDS Ot R00.2 PALPITATIONS 11/22/2016 MIHAELA STOVER FACC, ALI FACP CCDS Ot R06.02 SHORTNESS OF BREATH 11/22/2016 MIHAELA STOVER FACC, BETO FACP CCDS Ot R94.31 ABNORMAL ELECTROCARDIOGRAM [ECG] [EKG] 11/22/2016 MIHAELA STOVER FACC, BETO FACP CCDS Ot I10 ESSENTIAL (PRIMARY) HYPERTENSION 11/22/2016 MIHAELA STOVER FACC, BETO FACP CCDS Ot I25.10 ATHSCL HEART DISEASE OF [place] CORONARY 11/22/2016 MIHAELA STOVER FACC, BETO FACP CCDS Ot R00.2 PALPITATIONS 11/22/2016 MIHAELA STOVER FACC, BETO FACP CCDS Ot R06.02 SHORTNESS OF BREATH 11/22/2016 MIHAELA STOVER FACC, ALI FACP CCDS Ot R94.31 ABNORMAL ELECTROCARDIOGRAM [ECG] [EKG] 11/23/2016 MIHAELA STOVER FACC, ALI FACP CCDS Ot I10 ESSENTIAL (PRIMARY) HYPERTENSION 11/23/2016 MIHAELA STOVER FACC, ALI FACP CCDS Ot I25.10 ATHSCL HEART DISEASE OF [place] CORONARY 11/23/2016 MIHAELA STOVER FACC, ALI FACP CCDS Ot I73.9 PERIPHERAL VASCULAR DISEASE, UNSPECIFIED 12/16/2016 MIHAELA STOVER FACC, ALI FACP CCDS Ot I10 ESSENTIAL (PRIMARY) HYPERTENSION 12/16/2016 MIHAELA STOVER FACC, BETO FACP CCDS Ot I25.10 ATHSCL HEART DISEASE OF [place] CORONARY 12/16/2016 MIHAELA STOVER FACC, ALI FACP CCDS Ot I73.9 PERIPHERAL VASCULAR DISEASE, UNSPECIFIED 03/07/2017 Ot 272.4 HYPERLIPIDEMIA NEC/NOS 03/07/2017 Ot 401.9 HYPERTENSION NOS 03/07/2017 Ot 429.3 CARDIOMEGALY 03/07/2017 Ot 786.2 COUGH 03/07/2017 Ot 272.4 HYPERLIPIDEMIA NEC/NOS 03/07/2017 Ot 401.9 HYPERTENSION NOS 03/07/2017 Ot 401.9 HYPERTENSION NOS 03/07/2017 Ot 429.3 CARDIOMEGALY 03/07/2017 Ot 786.2 COUGH 03/07/2017 Ot 920 CONTUSION FACE/ SCALP/NCK 03/07/2017 Ot E000.8 OTHER EXTERNAL CAUSE STATUS [...] 553.20 VENTRAL HERNIA NOS 03/07/2017 Ot V72.63 PRE- PROCEDURAL LABORATORY EXAMINATION 03/07/2017 Ot V72.81 EXAM-PRE- OPERATIVE CARDIOVASCULAR 03/07/2017 Ot V74.8 SCREEN- BACTERIAL DIS NEC 03/07/2017 Ot 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 03/07/2017 Ot 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, BENIGN, W CHR KD ST 03/07/2017 Ot 585.3 CHRONIC KIDNEY DISEASE, STAGE III (MODER 03/07/2017 Ot 588.0 RENAL OSTEODYSTROPHY 03/07/2017 ESTRADA STOVER, ADITHYA Peter Ot 719.45 JOINT PAIN-PELVIS 03/07/2017 ADITHYA DORADO MD Ot 959.6 HIP THIGH INJURY NOS 03/07/2017 ADITHYA DORADO MD Ot E000.8 OTHER EXTERNAL CAUSE STATUS 03/07/2017 [...] Ot 791.0 PROTEINURIA 03/07/2017 SILVIANO SOSA MD A Ot 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 03/07/2017 SILVIANO SOSA MD Ot 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, BENIGN, W CHR KD ST 03/07/2017 SILVIANO SOSA MD Ot 585.3 CHRONIC KIDNEY DISEASE, STAGE III (MODER 03/07/2017 ALEJANDRA SOSA MDETTE A Ot 588.0 RENAL OSTEODYSTROPHY 03/07/2017 SILVIANO SOSA MD Ot 791.0 PROTEINURIA 03/07/2017 ALEJANDRA SOSA MDETTE A Ot 585.4 CHRONIC KIDNEY DISEASE, STAGE IV (SEVERE 03/07/2017 UNDERWOOD DPM, MATILDE P Ot 735.4 OTHER HAMMER TOE 03/07/2017 [place]ER[place] DPM, MATILDE P Ot V72.84 EXAM PRE-OPERATIVE NOS 03/07/2017 YASMINE DPM, MATILDE P Ot V74.8 SCREEN-BACTERIAL DIS NEC 03/07/2017 SILVIANO SOSA MD A Ot 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 03/07/2017 ALEJANDRA SOSA MDETTE Brittani Ot 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, BENIGN, W CHR KD ST 03/07/2017 SILVIANO SOSA MD Ot 585.3 CHRONIC KIDNEY DISEASE, STAGE III (MODER 03/07/2017 SILVIANO SOSA MD Ot 588.0 RENAL OSTEODYSTROPHY 03/07/2017 SILVIANO SOSA MD A Ot 791.0 PROTEINURIA 03/07/2017 ADITHYA DORADO MD Ot 786.2 COUGH 03/07/2017 SILVIANO SOSA MD Ot 268.9 VITAMIN D DEFICIENCY NOS 03/07/2017 ALEJANDRA SOSA MDETTE A Ot 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 03/07/2017 ALEJANDRA SOSA MDETTE Brittani Ot 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, BENIGN, W CHR KD ST 03/07/2017 SILVIANO SOSA MD Ot 585.3 CHRONIC KIDNEY DISEASE, STAGE III (MODER 03/07/2017 IAN STOVER SILVIANO A Ot 588.0 RENAL OSTEODYSTROPHY 03/07/2017 SILVIANO SOSA MD A Ot 791.0 PROTEINURIA 03/07/2017 ADITHYA DORADO MD [...] CHRONIC KIDNEY DISEASE, STAGE III (MODER 03/07/2017 SILVIANO SOSA MD Ot 588.0 RENAL [...] CHRONIC KIDNEY DISEASE, STAGE III (MODER 03/07/2017 SILVIANO SOSA MD Ot 588.0 RENAL OSTEODYSTROPHY 03/07/2017 SILVIANO SOSA MD Ot 791.0 PROTEINURIA 03/07/2017 Ot 429.3 CARDIOMEGALY 03/07/2017 Ot 786.52 PAINFUL RESPIRATION 03/07/2017 Ot E000.8 OTHER EXTERNAL CAUSE STATUS 03/07/2017 Ot E888.9 FALL NOS 03/07/2017 NEW, KEITH VidalStephen [employer]-C Ot 268.9 VITAMIN D DEFICIENCY NOS 03/07/2017 NEW, KEITH So [employer]MOKING [employer]-C Ot 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 03/07/2017 NEW, KEITH So 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, BENIGN, W CHR KD ST 03/07/2017 NEW, KEITH So [employer]MOKING [employer]-C Ot 585.3 CHRONIC KIDNEY DISEASE, STAGE III (MODER 03/07/2017 NEW, KEITH So SMOKING [employer]-C Ot 588.0 RENAL OSTEODYSTROPHY 03/07/2017 NEWKEITH SMOKING [employer]-C Ot 790.21 IMPAIRED FASTING GLUCOSE 03/07/2017 NEW, KEITH So [employer]-C Ot 791.0 PROTEINURIA 03/07/2017 NEW, KEITH So SMOKING [employer]-C Ot 268.9 VITAMIN D DEFICIENCY NOS 03/07/2017 NEW, KEITH So SMOKING [employer]-C Ot 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 03/07/2017 NEWKEITH SMOKING [employer]-C Ot N18.3 CHRONIC KIDNEY DISEASE, STAGE 3 (MODERAT 03/07/2017 KEITH BEAUCHAMP NP-C Ot N25.0 RENAL OSTEODYSTROPHY 03/07/2017 KEITH BEAUCHAMP NP-C Ot R73.01 IMPAIRED FASTING GLUCOSE 03/07/2017 KEITH BEAUCHAMP NP-C Ot R80.9 PROTEINURIA, UNSPECIFIED 03/07/2017 Ot I10 ESSENTIAL ( PRIMARY) HYPERTENSION 03/07/2017 Ot I25.10 ATHSCL HEART DISEASE OF [place] CORONARY 03/07/2017 Ot R00.2 PALPITATIONS 03/07/2017 Ot R06.02 SHORTNESS OF BREATH 03/07/2017 Ot R94.31 ABNORMAL ELECTROCARDIOGRAM [ECG] [EKG] 03/07/2017 MIHAELA STOVER FACC, BETO FACP CCDS Ot I10 ESSENTIAL (PRIMARY) HYPERTENSION 03/07/2017 MIHAELA STOVER FACC, ALI FACP CCDS Ot I25.10 ATHSCL HEART DISEASE OF [place] CORONARY 03/07/2017 MIHAELA STOVER FACC, ALI FACP CCDS Ot R00.2 PALPITATIONS 03/07/2017 MIHAELA STOVER FACC, ALI FACP CCDS Ot R06.02 SHORTNESS OF BREATH 03/07/2017 MIHAELA STOVER FACC, ALI FACP CCDS Ot R94.31 ABNORMAL ELECTROCARDIOGRAM [ECG] [EKG] 03/07/2017 MIHAELA STOVER FACC, ALI FACP CCDS Ot I10 ESSENTIAL (PRIMARY) HYPERTENSION 03/07/2017 MIHAELA STOVER FACC, ALI FACP CCDS Ot I25.10 ATHSCL HEART DISEASE OF [place] CORONARY 03/07/2017 MIHAELA STOVER FACC, ALI FACP CCDS Ot R00.2 PALPITATIONS 03/07/2017 MIHAELA STOVER FACC, ALI FACP CCDS Ot R06.02 SHORTNESS OF BREATH 03/07/2017 MIHAELA STOVER FACC, ALI FACP CCDS Ot R94.31 ABNORMAL ELECTROCARDIOGRAM [ECG] [EKG] 03/07/2017 MIHAELA STOVER FACC, ALI FACP CCDS Ot I10 ESSENTIAL (PRIMARY) HYPERTENSION 03/07/2017 MIHAELA STOVER FACC, ALI FACP CCDS Ot I25.10 ATHSCL HEART DISEASE OF [place] CORONARY 03/07/2017 MIHAELA STOVER FACC, ALI FACP [...] ADITHYA DORADO MD Ot R19.7 DIARRHEA, UNSPECIFIED 04/12/2017 ADARSH DIOP DO Ot D50.0 IRON DEFICIENCY ANEMIA SECONDARY TO BLOO 04/12/2017 ADARSH DIOP DO Ot E78.00 PURE HYPERCHOLESTEROLEMIA, UNSPECIFIED 04/12/2017 ADARSH DIOP DO Ot E87.2 ACIDOSIS 04/12/2017 ADARSH DIOP DO Ot F32.9 MAJOR DEPRESSIVE DISORDER, SINGLE EPISOD 04/12/2017 ADARSH DIOP DO Ot F41.9 ANXIETY DISORDER, UNSPECIFIED 04/12/2017 ADARSH DIOP DO Ot I12.9 HYPERTENSIVE CHRONIC KIDNEY DISEASE W ST 04/12/2017 ADARSH DIOP DO Ot I65.23 OCCLUSION AND STENOSIS OF BILATERAL [place] 04/12/2017 ADARSH DIOP DO Ot J18.9 PNEUMONIA, UNSPECIFIED ORGANISM 04/12/2017 ADARSH DIOP DO Ot K22.10 ULCER OF ESOPHAGUS WITHOUT BLEEDING 04/12/2017 ADARSH DIOP DO Ot K25.4 CHRONIC OR UNSPECIFIED GASTRIC ULCER WIT 04/12/2017 ADARSH DIOP DO Ot K26.9 DUODENAL ULCER, UNSP ACUTE OR CHRONIC 04/12/2017 ADARSH DIOP DO Ot K29.71 GASTRITIS, UNSPECIFIED, WITH BLEEDING 04/12/2017 ADARSH DIOP DO Ot K57.92 DVTRCLI OF INTEST, PART UNSP, W/O PERF O 04/12/2017 ADARSH DIOP DO, Ot K59.00 CONSTIPATION, UNSPECIFIED 04/12/2017 ADARSH DIOP DO Ot K91.870 POSTPROC HEMATOMA OF A DGSTV SYS ORG FOL 04/12/2017 ADARSH DIOP DO Ot L89.150 PRESSURE ULCER OF SACRAL REGION, UNSTAGE 04/12/2017 ADARSH DIOP DO Ot L89.619 PRESSURE ULCER OF RIGHT HEEL, UNSPECIFIE 04/12/2017 ADARSH DIOP DO Ot M19.91 PRIMARY OSTEOARTHRITIS, UNSPECIFIED SITE 04/12/2017 ADARSH DIOP DO Ot M54.16 RADICULOPATHY, LUMBAR REGION 04/12/2017 ADARSH DIOP DO Ot M54.9 DORSALGIA, UNSPECIFIED 04/12/2017 ADARSH DIOP DO Ot N18.9 CHRONIC KIDNEY DISEASE, UNSPECIFIED 04/12/2017 ADARSH DIOP DO Ot R32 UNSPECIFIED URINARY INCONTINENCE 04/12/2017 ADARSH DIOP DO Ot R35.0 FREQUENCY OF MICTURITION 04/12/2017 ADARSH DIOP DO Ot Z66 DO NOT RESUSCITATE 04/12/2017 ADARSH DIOP DO Ot Z99.81 DEPENDENCE ON SUPPLEMENTAL OXYGEN 04/13/2017 ADARSH DIOP DO Ot D50.0 IRON DEFICIENCY ANEMIA SECONDARY TO BLOO 04/13/2017 ADARSH DIOP DO Ot E78.00 PURE HYPERCHOLESTEROLEMIA, UNSPECIFIED 04/13/2017 ADARSH DIOP DO Ot E87.2 ACIDOSIS 04/13/2017 ADARSH DIOP DO Ot F32.9 MAJOR DEPRESSIVE DISORDER, SINGLE EPISOD 04/13/2017 ADARSH DIOP DO Ot F41.9 ANXIETY DISORDER, UNSPECIFIED 04/13/2017 ADARSH DIOP DO Ot I12.9 HYPERTENSIVE CHRONIC KIDNEY DISEASE W ST 04/13/2017 ADARSH DIOP DO Ot I65.23 OCCLUSION AND STENOSIS OF BILATERAL [place] 04/13/2017 ADARSH DIOP DO, Ot J18.9 PNEUMONIA, UNSPECIFIED ORGANISM 04/13/2017 ADARSH DIOP DO Ot K22.10 ULCER OF ESOPHAGUS WITHOUT BLEEDING 04/13/2017 ADARSH DIOP DO Ot K25.4 CHRONIC OR UNSPECIFIED GASTRIC ULCER WIT 04/13/2017 ADARSH DIOP DO Ot K26.9 DUODENAL ULCER, UNSP ACUTE OR CHRONIC 04/13/2017 ADARSH DIOP DO Ot K29.71 GASTRITIS, UNSPECIFIED, WITH BLEEDING 04/13/2017 ADARSH DIOP DO Ot K57.92 DVTRCLI OF INTEST, PART UNSP, W/O PERF O 04/13/2017 ADARSH DIOP DO Ot K59.00 CONSTIPATION, UNSPECIFIED 04/13/2017 ADARSH DIOP DO Ot K91.870 POSTPROC HEMATOMA OF A DGSTV SYS ORG FOL 04/13/2017 ADARSH DIOP DO Ot L89.150 PRESSURE ULCER OF SACRAL REGION, UNSTAGE 04/13/2017 ADARSH DIOP DO Ot L89.619 PRESSURE ULCER OF RIGHT HEEL, UNSPECIFIE 04/13/2017 ADARSH DIOP DO Ot M19.91 PRIMARY OSTEOARTHRITIS, UNSPECIFIED SITE 04/13/2017 ADARSH DIOP DO Ot M54.16 RADICULOPATHY, LUMBAR REGION 04/13/2017 ADARSH DIOP DO Ot M54.9 DORSALGIA, UNSPECIFIED 04/13/2017 ADARSH DIOP DO Ot N18.9 CHRONIC KIDNEY DISEASE, UNSPECIFIED 04/13/2017 ADARSH DIOP DO Ot R32 UNSPECIFIED URINARY INCONTINENCE 04/13/2017 ADARSH DIOP DO Ot R35.0 FREQUENCY OF MICTURITION 04/13/2017 ADARSH DIOP DO Ot Z66 DO NOT RESUSCITATE 04/13/2017 ADARSH DIOP DO Ot Z99.81 DEPENDENCE ON SUPPLEMENTAL OXYGEN 04/14/2017 ADARSH DIOP DO Ot D50.0 IRON DEFICIENCY ANEMIA SECONDARY TO BLOO 04/14/2017 ADARSH DIOP DO Ot E78.00 PURE HYPERCHOLESTEROLEMIA, UNSPECIFIED 04/14/2017 ADARSH DIOP DO Ot E87.2 ACIDOSIS 04/14/2017 ADARSH DIOP DO Ot F32.9 MAJOR DEPRESSIVE DISORDER, SINGLE EPISOD 04/14/2017 ADARSH DIOP DO Ot F41.9 ANXIETY DISORDER, UNSPECIFIED 04/14/2017 ADARSH DIOP DO Ot I12.9 HYPERTENSIVE CHRONIC KIDNEY DISEASE W ST 04/14/2017 ADARSH DIOP DO Ot I65.23 OCCLUSION AND STENOSIS OF BILATERAL [place] 04/14/2017 ADARSH DIOP DO Ot J18.9 PNEUMONIA, UNSPECIFIED ORGANISM 04/14/2017 ADARSH DIOP DO Ot K22.10 ULCER OF ESOPHAGUS WITHOUT BLEEDING 04/14/2017 ADARSH DIOP DO Ot K25.4 CHRONIC OR UNSPECIFIED GASTRIC ULCER WIT 04/14/2017 ADARSH DIOP DO Ot K26.9 DUODENAL ULCER, UNSP ACUTE OR CHRONIC 04/14/2017 ADARSH DIOP DO Ot K29.71 GASTRITIS, UNSPECIFIED, WITH BLEEDING 04/14/2017 ADARSH DIOP DO Ot K57.92 DVTRCLI OF INTEST, PART UNSP, W/O PERF O 04/14/2017 ADARSH DIOP DO Ot K59.00 CONSTIPATION, UNSPECIFIED 04/14/2017 ADARSH DIOP DO Ot K91.870 POSTPROC HEMATOMA OF A DGSTV SYS ORG FOL 04/14/2017 ADARSH DIOP DO Ot L89.150 PRESSURE ULCER OF SACRAL REGION, UNSTAGE 04/14/2017 ADARSH DIOP DO Ot L89.619 PRESSURE ULCER OF RIGHT HEEL, UNSPECIFIE 04/14/2017 ADARSH DIOP DO Ot M19.91 PRIMARY OSTEOARTHRITIS, UNSPECIFIED SITE 04/14/2017 ADARSH DIOP DO Ot M54.16 RADICULOPATHY, LUMBAR REGION 04/14/2017 ADARSH DIOP DO Ot M54.9 DORSALGIA, UNSPECIFIED 04/14/2017 ADARSH DIOP DO Ot N18.9 CHRONIC KIDNEY DISEASE, UNSPECIFIED 04/14/2017 ADARSH DIOP DO Ot R32 UNSPECIFIED URINARY INCONTINENCE 04/14/2017 ADARSH DIOP DO Ot R35.0 FREQUENCY OF MICTURITION 04/14/2017 ADARSH DIOP DO Ot Z66 DO NOT RESUSCITATE 04/14/2017 ADARSH DIOP DO Ot Z99.81 DEPENDENCE ON SUPPLEMENTAL OXYGEN 04/14/2017 ADARSH DIOP DO Ot D50.0 IRON DEFICIENCY ANEMIA SECONDARY TO BLOO 04/14/2017 ADARSH DIOP DO Ot E78.00 PURE HYPERCHOLESTEROLEMIA, UNSPECIFIED 04/14/2017 ADARSH DIOP DO Ot E87.2 ACIDOSIS 04/14/2017 ADARSH DIOP DO Ot F32.9 MAJOR DEPRESSIVE DISORDER, SINGLE EPISOD 04/14/2017 ADARSH DIOP DO Ot F41.9 ANXIETY DISORDER, UNSPECIFIED 04/14/2017 ADARSH DIOP DO Ot I12.9 HYPERTENSIVE CHRONIC KIDNEY DISEASE W ST 04/14/2017 ADARSH DIOP DO Ot I65.23 OCCLUSION AND STENOSIS OF BILATERAL [place] 04/14/2017 ADARSH DIOP DO Ot J18.9 PNEUMONIA, UNSPECIFIED ORGANISM 04/14/2017 ADARSH DIOP DO Ot K22.10 ULCER OF ESOPHAGUS WITHOUT BLEEDING 04/14/2017 ADARSH DIOP DO Ot K25.4 CHRONIC OR UNSPECIFIED GASTRIC ULCER WIT 04/14/2017 ADARSH DIOP DO Ot K26.9 DUODENAL ULCER, UNSP ACUTE OR CHRONIC 04/14/2017 ADARSH DIOP DO Ot K29.71 GASTRITIS, UNSPECIFIED, WITH BLEEDING 04/14/2017 ADARSH DIOP DO Ot K57.92 DVTRCLI OF INTEST, PART UNSP, W/O PERF O 04/14/2017 ADARSH DIOP DO Ot K59.00 CONSTIPATION, UNSPECIFIED 04/14/2017 ADARSH DIOP DO Ot K91.870 POSTPROC HEMATOMA OF A DGSTV SYS ORG FOL 04/14/2017 ADARSH DIOP DO Ot L89.150 PRESSURE ULCER OF SACRAL REGION, UNSTAGE 04/14/2017 ADARSH DIOP DO Ot L89.619 PRESSURE ULCER OF RIGHT HEEL, UNSPECIFIE 04/14/2017 ADARSH DIOP DO Ot M19.91 PRIMARY OSTEOARTHRITIS, UNSPECIFIED SITE 04/14/2017 ADARSH DIOP DO Ot M54.16 RADICULOPATHY, LUMBAR REGION 04/14/2017 ADARSH DIOP DO Ot M54.9 DORSALGIA, UNSPECIFIED 04/14/2017 ADARSH DIOP DO Ot N18.9 CHRONIC KIDNEY DISEASE, UNSPECIFIED 04/14/2017 ADARSH DIOP DO Ot R32 UNSPECIFIED URINARY INCONTINENCE 04/14/2017 ADARSH DIOP DO Ot R35.0 FREQUENCY OF MICTURITION 04/14/2017 ADARSH DIOP DO Ot Z66 DO NOT RESUSCITATE 04/14/2017 ADARSH DIOP DO Ot Z99.81 DEPENDENCE ON SUPPLEMENTAL OXYGEN 04/18/2017 ADITHYA DORADO MD Ot D62 ACUTE POSTHEMORRHAGIC ANEMIA 04/18/2017 ADITHYA DORADO MD Ot F32.9 MAJOR DEPRESSIVE DISORDER, SINGLE EPISOD 04/18/2017 ADITHYA DORADO MD Ot I12.9 HYPERTENSIVE CHRONIC KIDNEY DISEASE W ST 04/18/2017 ADITHYA DORADO MD Ot J18.9 PNEUMONIA, UNSPECIFIED ORGANISM 04/18/2017 ADITHYA DORADO MD Ot K25.4 CHRONIC OR UNSPECIFIED GASTRIC ULCER WIT 04/18/2017 ADITHYA DORADO MD Ot K29.71 GASTRITIS, UNSPECIFIED, WITH BLEEDING 04/18/2017 ADITHYA DORADO MD Ot K57.92 DVTRCLI OF INTEST, PART UNSP, W/O PERF O 04/18/2017 ADITHYA DORADO MD Ot K59.00 CONSTIPATION, UNSPECIFIED 04/18/2017 ADITHYA DORADO MD Ot N18.9 CHRONIC KIDNEY DISEASE, UNSPECIFIED 04/18/2017 ADITHYA DORADO MD Ot N39.0 URINARY TRACT INFECTION, SITE NOT SPECIF 04/18/2017 ADITHYA DORADO MD Ot R60.9 EDEMA, UNSPECIFIED 04/18/2017 ADITHYA DORADO MD Ot Z66 DO NOT RESUSCITATE 04/19/2017 ADITHYA DORADO MD Ot D62 ACUTE POSTHEMORRHAGIC ANEMIA 04/19/2017 ADITHYA DORADO MD Ot F32.9 MAJOR DEPRESSIVE DISORDER, SINGLE EPISOD 04/19/2017 ADITHYA DORADO MD, Ot I12.9 HYPERTENSIVE CHRONIC KIDNEY DISEASE W ST 04/19/2017 ADITHYA DORADO MD, Ot J18.9 PNEUMONIA, UNSPECIFIED ORGANISM 04/19/2017 ADITHYA DORADO MD Ot K25.4 CHRONIC OR UNSPECIFIED GASTRIC ULCER WIT 04/19/2017 ADITHYA DORADO MD Ot K29.71 GASTRITIS, UNSPECIFIED, WITH BLEEDING 04/19/2017 ADITHYA DORADO MD Ot K57.92 DVTRCLI OF INTEST, PART UNSP, W/O PERF O 04/19/2017 ADITHYA DORADO MD Ot K59.00 CONSTIPATION, UNSPECIFIED 04/19/2017 ADITHYA DORADO MD Ot N18.9 CHRONIC KIDNEY DISEASE, UNSPECIFIED 04/19/2017 ADITHYA DORADO MD Ot N39.0 URINARY TRACT INFECTION, SITE NOT SPECIF 04/19/2017 ADITHYA DORADO MD Ot R60.9 EDEMA, UNSPECIFIED 04/19/2017 ADITHYA DORADO MD Ot Z66 DO NOT RESUSCITATE 04/19/2017 ADITHYA DORADO MD Ot D62 ACUTE POSTHEMORRHAGIC ANEMIA 04/19/2017 ADITHYA DORADO MD Ot F32.9 MAJOR DEPRESSIVE DISORDER, SINGLE EPISOD 04/19/2017 ADITHYA DORADO MD Ot I12.9 HYPERTENSIVE CHRONIC KIDNEY DISEASE W ST 04/19/2017 ADITHYA DORADO MD, Ot J18.9 PNEUMONIA, UNSPECIFIED ORGANISM 04/19/2017 ADITHYA DORADO MD Ot K25.4 CHRONIC OR UNSPECIFIED GASTRIC ULCER WIT 04/19/2017 ADITHYA DORADO MD Ot K29.71 GASTRITIS, UNSPECIFIED, WITH BLEEDING 04/19/2017 ADITHYA DORADO MD Ot K57.92 DVTRCLI OF INTEST, PART UNSP, W/O PERF O 04/19/2017 ADITHYA DORADO MD Ot K59.00 CONSTIPATION, UNSPECIFIED 04/19/2017 ADITHYA DORADO MD, Ot N18.9 CHRONIC KIDNEY DISEASE, UNSPECIFIED 04/19/2017 ADITHYA DORADO MD Ot N39.0 URINARY TRACT INFECTION, SITE NOT SPECIF 04/19/2017 ADITHYA DORADO MD Ot R53.1 WEAKNESS 04/19/2017 ADITHYA DORADO MD Ot R60.9 EDEMA, UNSPECIFIED 04/19/2017 ADITHYA DORADO MD Ot Z66 DO NOT RESUSCITATE 04/24/2017 ADITHYA DORADO MD Ot R19.7 DIARRHEA, UNSPECIFIED 05/31/2017 KEITH BEAUCHAMP Ot D63.1 ANEMIA IN CHRONIC KIDNEY DISEASE 06/12/2017 ADARSH DIOP DO Ot K92.2 GASTROINTESTINAL HEMORRHAGE, UNSPECIFIED 06/12/2017 ADARSH DIOP DO Ot Z01.818 ENCOUNTER FOR OTHER PREPROCEDURAL EXAMIN 06/12/2017 ADARSH DIOP DO Ot K92.2 GASTROINTESTINAL HEMORRHAGE, UNSPECIFIED 06/12/2017 ADARSH DIOP DO Ot Z01.818 ENCOUNTER FOR OTHER PREPROCEDURAL EXAMIN 06/13/2017 ADARSH DIOP DO Ot K92.2 GASTROINTESTINAL HEMORRHAGE, UNSPECIFIED 06/13/2017 ADARSH DIOP DO Ot Z01.818 ENCOUNTER FOR OTHER PREPROCEDURAL EXAMIN 06/13/2017 ADARSH DIOP DO Ot F41.9 ANXIETY DISORDER, UNSPECIFIED 06/13/2017 ADARSH DIOP DO Ot I10 ESSENTIAL (PRIMARY) HYPERTENSION 06/13/2017 ADARSH DIOP DO Ot I25.10 ATHSCL HEART DISEASE OF [place] CORONARY 06/13/2017 ADARSH DIOP DO Ot I69.354 HEMIPLGA FOLLOWING CEREBRAL INFRC AFFECT 06/13/2017 ADARSH DIOP DO Ot I73.9 PERIPHERAL VASCULAR DISEASE, UNSPECIFIED 06/13/2017 ADARSH DIOP DO Ot K21.0 GASTRO-ESOPHAGEAL REFLUX DISEASE WITH ES 06/13/2017 ADARSH DIOP DO Ot K44.9 DIAPHRAGMATIC HERNIA WITHOUT OBSTRUCTION 06/13/2017 ADARSH DIOP DO Ot Z79.899 OTHER [facility] (CURRENT) DRUG THERAPY 06/13/2017 ADARSH DIOP DO Ot Z87.11 PERSONAL HISTORY OF PEPTIC ULCER DISEASE 06/13/2017 ADARSH DIOP DO Ot Z87.891 PERSONAL HISTORY OF NICOTINE DEPENDENCE 06/21/2017 ADARSH DIOP DO Ot F41.9 ANXIETY DISORDER, UNSPECIFIED 06/21/2017 ADARSH DIOP DO Ot I10 ESSENTIAL (PRIMARY) HYPERTENSION 06/21/2017 ADARSH DIOP DO Ot I25.10 ATHSCL HEART DISEASE OF [place] CORONARY 06/21/2017 ADARSH DIOP DO Ot I69.354 HEMIPLGA FOLLOWING CEREBRAL INFRC AFFECT 06/21/2017 ADARSH DIOP DO Ot I73.9 PERIPHERAL VASCULAR DISEASE, UNSPECIFIED 06/21/2017 ADARSH DIOP DO Ot K21.0 GASTRO-ESOPHAGEAL REFLUX DISEASE WITH ES 06/21/2017 ADARSH DIOP DO Ot K44.9 DIAPHRAGMATIC HERNIA WITHOUT OBSTRUCTION 06/21/2017 ADARSH DIOP DO Ot Z79.899 OTHER [facility] (CURRENT) DRUG THERAPY 06/21/2017 ADARSH DIOP DO Ot Z87.11 PERSONAL HISTORY OF PEPTIC ULCER DISEASE 06/21/2017 ADARSH DIOP DO Ot Z87.891 PERSONAL HISTORY OF NICOTINE DEPENDENCE 06/21/2017 QUYNH KEITH So S[employer]KING [employer]ER-C Ot D63.1 ANEMIA IN CHRONIC KIDNEY DISEASE 06/21/2017 NEW KEITH So [employer]KING [employer]ER-C Ot E55.9 VITAMIN D DEFICIENCY, UNSPECIFIED 06/21/2017 NEW, KEITH So [employer]KING [employer]ER-C Ot E78.5 HYPERLIPIDEMIA, UNSPECIFIED 06/21/2017 NEW, KEITH So SMOKING [employer]ER-C Ot E83.52 HYPERCALCEMIA 06/21/2017 NEW, KEITH So SMOKING P[employer] THREADER-C Ot I12.9 HYPERTENSIVE CHRONIC KIDNEY DISEASE W ST 06/21/2017 NEW, KEITH So SMOKING [employer]ER-C Ot N18.3 CHRONIC KIDNEY DISEASE, STAGE 3 (MODERAT 06/21/2017 NEW, KEITH So SMOKING [employer] THREADER-C Ot N25.0 RENAL OSTEODYSTROPHY 06/21/2017 NEW, KEITH So SMOKING [employer] THREADER-C Ot N39.0 URINARY TRACT INFECTION, SITE NOT SPECIF 06/21/2017 NEW KEITH So SMOKING [employer]ER-C Ot R73.01 IMPAIRED FASTING GLUCOSE 06/21/2017 NEW, KEITH So SMOKING P[employer]ER-C Ot R80.9 PROTEINURIA, UNSPECIFIED 07/05/2017 ADITHYA DORADO MD, Ot D64.9 ANEMIA, UNSPECIFIED 07/05/2017 ADITHYA DORADO MD Ot N18.9 CHRONIC KIDNEY DISEASE, UNSPECIFIED 07/14/2017 ADARSH DIOP DO Ot D50.9 IRON DEFICIENCY ANEMIA, UNSPECIFIED 07/14/2017 ADARSH DIOP DO Ot Z01.818 ENCOUNTER FOR OTHER PREPROCEDURAL EXAMIN 07/14/2017 ADARSH DIOP DO Ot D50.9 IRON DEFICIENCY ANEMIA, UNSPECIFIED 07/14/2017 ADARSH DIOP DO Ot Z01.818 ENCOUNTER FOR OTHER PREPROCEDURAL EXAMIN 07/14/2017 ADARSH DIOP DO Ot D50.9 IRON DEFICIENCY ANEMIA, UNSPECIFIED 07/14/2017 ADARSH DIOP DO Ot Z01.818 ENCOUNTER FOR OTHER PREPROCEDURAL EXAMIN 07/15/2017 ADITHYA DORADO MD, Ot D64.9 ANEMIA, UNSPECIFIED 07/15/2017 ESTRADA MD, ADITHYA A Ot N18.9 CHRONIC KIDNEY DISEASE, UNSPECIFIED 07/18/2017 ADARSH DIOP DO Ot D50.9 IRON DEFICIENCY ANEMIA, UNSPECIFIED 07/18/2017 ADARSH DIOP DO Ot I12.9 HYPERTENSIVE CHRONIC KIDNEY DISEASE W ST 07/18/2017 ADARSH DIOP DO Ot I25.10 ATHSCL HEART DISEASE OF [place] CORONARY 07/18/2017 ADARSH DIOP DO Ot I48.91 UNSPECIFIED ATRIAL FIBRILLATION 07/18/2017 ADARSH DIOP DO Ot I69.354 HEMIPLGA FOLLOWING CEREBRAL INFRC AFFECT 07/18/2017 ADARSH DIOP DO Ot J44.9 CHRONIC OBSTRUCTIVE PULMONARY DISEASE, U 07/18/2017 ADARSH DIOP DO Ot K21.9 GASTRO-ESOPHAGEAL REFLUX DISEASE WITHOUT 07/18/2017 ADARSH DIOP DO Ot K57.30 DVRTCLOS OF LG INT W/O PERFORATION OR AB 07/18/2017 ADARSH DIOP DO Ot K63.5 POLYP OF COLON 07/18/2017 ADARSH DIOP DO Ot N18.9 CHRONIC KIDNEY DISEASE, UNSPECIFIED 07/18/2017 ADARSH DIOP DO Ot 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 07/20/2017 ADARSH DIPO DO Ot D50.9 IRON DEFICIENCY ANEMIA, UNSPECIFIED 07/20/2017 ADARSH DIOP DO Ot I12.9 HYPERTENSIVE CHRONIC KIDNEY DISEASE W ST 07/20/2017 ADARSH DIOP DO Ot I25.10 ATHSCL HEART DISEASE OF [place] CORONARY 07/20/2017 ADARSH DIOP DO Ot I48.91 UNSPECIFIED ATRIAL FIBRILLATION 07/20/2017 ADARSH DIOP DO Ot I69.354 HEMIPLGA FOLLOWING CEREBRAL INFRC AFFECT 07/20/2017 ADARSH DIOP DO Ot J44.9 CHRONIC OBSTRUCTIVE PULMONARY DISEASE, U 07/20/2017 ADARSH DIOP DO Ot K21.9 GASTRO-ESOPHAGEAL REFLUX DISEASE WITHOUT 07/20/2017 ADARSH DIOP DO Ot K57.30 DVRTCLOS OF LG INT W/O PERFORATION OR AB 07/20/2017 ADARSH DIOP DO Ot K63.5 POLYP OF COLON 07/20/2017 ADARSH DIOP DO Ot N18.9 CHRONIC KIDNEY DISEASE, UNSPECIFIED 07/20/2017 ADARSH DIOP DO Ot Z79.899 OTHER [facility] (CURRENT) DRUG THERAPY 07/24/2017 ADARSH DIOP DO Ot D50.9 IRON DEFICIENCY ANEMIA, UNSPECIFIED 07/24/2017 ADARSH DIOP DO Ot I12.9 HYPERTENSIVE CHRONIC KIDNEY DISEASE W ST 07/24/2017 ADARSH DIOP DO Ot I25.10 ATHSCL HEART DISEASE OF [place] CORONARY 07/24/2017 ADARSH DIOP DO Ot I48.91 UNSPECIFIED ATRIAL FIBRILLATION 07/24/2017 ADARSH DIOP DO Ot I69.354 HEMIPLGA FOLLOWING CEREBRAL INFRC AFFECT 07/24/2017 ADARSH DIOP DO Ot J44.9 CHRONIC OBSTRUCTIVE PULMONARY DISEASE, U 07/24/2017 ADARSH DIOP DO Ot K21.9 GASTRO-ESOPHAGEAL REFLUX DISEASE WITHOUT 07/24/2017 ADARSH DIOP DO Ot K57.30 DVRTCLOS OF LG INT W/O PERFORATION OR AB 07/24/2017 ADARSH DIOP DO Ot K63.5 POLYP OF COLON 07/24/2017 ADARSH DIOP DO Ot N18.9 CHRONIC KIDNEY DISEASE, UNSPECIFIED 07/24/2017 ADARSH DIOP DO Ot 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 07/28/2017 KEITH BEAUCHAMP NP-C Ot D63.1 ANEMIA IN CHRONIC KIDNEY DISEASE 07/28/2017 KEITH BEAUCHAMP NP-C Ot E55.9 VITAMIN D DEFICIENCY, UNSPECIFIED 07/28/2017 KEITH BEAUCHAMP NP-C Ot E78.5 HYPERLIPIDEMIA, UNSPECIFIED 07/28/2017 KEITH BEAUCHAMP NP-C Ot E83.52 HYPERCALCEMIA 07/28/2017 KEITH BEAUCHAMP NP-C Ot I12.9 HYPERTENSIVE CHRONIC KIDNEY DISEASE W ST 07/28/2017 KEITH BEAUCHAMP NP-C Ot N18.3 CHRONIC KIDNEY DISEASE, STAGE 3 (MODERAT 07/28/2017 KEITH BEAUCHAMP NP-C Ot N25.0 RENAL OSTEODYSTROPHY 07/28/2017 KEITH BEAUCHAMP NP-C Ot N39.0 URINARY TRACT INFECTION, SITE NOT SPECIF 07/28/2017 KEITH BEAUCHAMP SMOKING PIPE DRILLER AND THREADER-C Ot R73.01 IMPAIRED FASTING GLUCOSE 07/28/2017 KEITH BEAUCHAMP SMOKING PIPE DRI[employer] AND TH[employer]ER-C Ot R80.9 PROTEINURIA, UNSPECIFIED 07/28/2017 Ot 401.9 HYPERTENSION NOS 07/28/2017 Ot 553.20 VENTRAL HERNIA NOS 07/28/2017 Ot V72.63 PRE- PROCEDURAL LABORATORY EXAMINATION 07/28/2017 Ot V72.81 EXAM-PRE- OPERATIVE CARDIOVASCULAR 07/28/2017 Ot V74.8 SCREEN- BACTERIAL DIS NEC 07/28/2017 Ot 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 07/28/2017 Ot 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, BENIGN, W CHR KD ST 07/28/2017 Ot 585.3 CHRONIC KIDNEY DISEASE, STAGE III (MODER 07/28/2017 Ot 588.0 RENAL OSTEODYSTROPHY 07/28/2017 ESTRADA STOVER, ADITHYA Peter Ot 719.45 JOINT PAIN-PELVIS 07/28/2017 ESTRADA STOVER, ADITHYA Peter Ot 959.6 HIP THIGH INJURY NOS 07/28/2017 ESTRADA STOVER, ADITHYA Peter Ot E000.8 OTHER EXTERNAL CAUSE STATUS 07/28/2017 ADITHYA DORADO MD Ot E849.0 ACCIDENT IN HOME 07/28/2017 ADITHYA DORADO MD Ot E888.9 FALL NOS 07/28/2017 ADITHYA DORADO MD Ot 272.4 HYPERLIPIDEMIA NEC/NOS 07/28/2017 ADITHYA DORADO MD Ot 285.9 ANEMIA NOS 07/28/2017 ADITHYA DORADO MD Ot 401.9 HYPERTENSION NOS 07/28/2017 ADITHYA DORADO MD Ot 593.9 RENAL URETERAL DIS NOS 07/28/2017 ADITHYA DORADO MD Ot V72.62 LAB EXAM ORDERED PART OF A ROUTINE GE 07/28/2017 ADITHYA DORADO MD Ot 786.09 RESPIRATORY ABNORM NEC 07/28/2017 ADITHYA DORADO MD Ot 786.2 COUGH 07/28/2017 Ot 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 07/28/2017 Ot 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, BENIGN, W CHR KD ST 07/28/2017 Ot 585.3 CHRONIC KIDNEY DISEASE, STAGE III (MODER 07/28/2017 Ot 588.0 RENAL OSTEODYSTROPHY 07/28/2017 Ot 791.0 PROTEINURIA 07/28/2017 ALEJANDRA SOSA MDETTE A Ot 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 07/28/2017 SILVIANO SOSA MD Ot 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, BENIGN, W CHR KD ST 07/28/2017 SILVIANO SOSA MD Ot 585.3 CHRONIC KIDNEY DISEASE, STAGE III (MODER 07/28/2017 SILVIANO SOSA MD A Ot 588.0 RENAL OSTEODYSTROPHY 07/28/2017 IAN STOVER, SILVIANO A Ot 791.0 PROTEINURIA 07/28/2017 ALEJANDRA SOSA MDETTE A Ot 585.4 CHRONIC KIDNEY DISEASE, STAGE IV (SEVERE 07/28/2017 UNDERWOOD DPM, MATILDE P Ot 735.4 OTHER HAMMER TOE 07/28/2017 UNDERWOOD DPM, MATILDE P Ot V72.84 EXAM PRE-OPERATIVE NOS 07/28/2017 UNDERWOOD DPM, MATILDE P Ot V74.8 SCREEN-BACTERIAL DIS NEC 07/28/2017 ALEJANDRA SOSA MDETTE A Ot 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 07/28/2017 SILVIANO SOSA MD Ot 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, BENIGN, W CHR KD ST 07/28/2017 SILVIANO SOSA MD Ot 585.3 CHRONIC KIDNEY DISEASE, STAGE III (MODER 07/28/2017 ALEJANDRA SOSA MDETTE A Ot 588.0 RENAL OSTEODYSTROPHY 07/28/2017 SILVIANO SOSA MD A Ot 791.0 PROTEINURIA 07/28/2017 ADITHYA DORADO MD Ot 786.2 COUGH 07/28/2017 SILVIANO SOSA MD A Ot 268.9 VITAMIN D DEFICIENCY NOS 07/28/2017 ALEJANDRA SOSA MDETTE A Ot 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 07/28/2017 ALEJANDRA SOSA MDETTE Brittani Ot 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, BENIGN, W CHR KD ST 07/28/2017 ALEJANDRA SOSA MDETTE A Ot 585.3 CHRONIC KIDNEY DISEASE, STAGE III (MODER 07/28/2017 ALEJANDRA SOSA MDETTE A Ot 588.0 RENAL OSTEODYSTROPHY 07/28/2017 ALEJANDRA SOSA MDETTE A Ot 791.0 PROTEINURIA 07/28/2017 ADITHYA DORADO MD Ot 715.38 LOC OSTEOAR NOS-SITE NEC 07/28/2017 ADITHYA DORADO MD Ot 719.45 JOINT PAIN-PELVIS 07/28/2017 ADITHYA DORADO MD Ot 722.52 LUMB/LUMBOSAC DISC DEGEN 07/28/2017 ADITHYA DORADO MD Ot 781.2 ABNORMALITY OF GAIT 07/28/2017 SILVIANO SOSA MD Ot 268.9 VITAMIN D DEFICIENCY NOS 07/28/2017 SILVIANO SOSA MD Ot 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 07/28/2017 SILVIANO SOSA MD Ot 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, BENIGN, W CHR KD ST 07/28/2017 SILVIANO SOSA MD Ot 585.3 CHRONIC KIDNEY DISEASE, STAGE III (MODER 07/28/2017 SILVIANO SOSA MD Ot 588.0 RENAL OSTEODYSTROPHY 07/28/2017 SILVIANO SOSA MD Ot 791.0 PROTEINURIA 07/28/2017 ADITHYA DORADO MD Ot 272.4 HYPERLIPIDEMIA NEC/NOS 07/28/2017 ADITHYA DORADO MD Ot 401.9 HYPERTENSION NOS 07/28/2017 ADITHYA DORADO MD Ot V58.69 OTH MED,LT,CURRENT USE 07/28/2017 ADITHYA DORADO MD Ot 272.4 HYPERLIPIDEMIA NEC/NOS 07/28/2017 ADITHYA ODRADO MD Ot 401.9 HYPERTENSION NOS 07/28/2017 ADITHYA DORADO MD Ot V58.69 OTH MED,LT,CURRENT USE 07/28/2017 ADITHYA DORADO MD Ot V72.62 LAB EXAM ORDERED PART OF A ROUTINE GE 07/28/2017 SILVIANO SOSA MD Ot 268.9 VITAMIN D DEFICIENCY NOS 07/28/2017 SILVIANO SOSA MD Ot 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 07/28/2017 SILVIANO SOSA MD Ot 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, BENIGN, W CHR KD ST 07/28/2017 SILVIANO SOSA MD Ot 585.3 CHRONIC KIDNEY DISEASE, STAGE III (MODER 07/28/2017 IAN MD, SILVIANO A Ot 588.0 RENAL OSTEODYSTROPHY 07/28/2017 IAN STOVER, SILVIANO A Ot 791.0 PROTEINURIA 07/28/2017 Ot 429.3 CARDIOMEGALY 07/28/2017 Ot 786.52 PAINFUL RESPIRATION 07/28/2017 Ot E000.8 OTHER EXTERNAL CAUSE STATUS 07/28/2017 Ot E888.9 FALL NOS 07/28/2017 NEW, KEITH G. 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 SMOKING PIPE DRILLER AND THREADER-C Ot 588.0 RENAL OSTEODYSTROPHY 07/28/2017 NEW KEITH GStephen SMOKING PIPE DRILLER AND THREADER-C Ot 790.21 IMPAIRED FASTING GLUCOSE 07/28/2017 NEW, KEITH G. SMOKING PIPE DRILLER AND THREADER-C Ot 791.0 PROTEINURIA 07/28/2017 NEW, KEITH G. SMOKING PIPE DRILLER AND THREADER-C Ot D63.1 ANEMIA IN CHRONIC KIDNEY DISEASE 07/28/2017 KEITH BEAUCHAMP GStephen SMOKING PIPE DRILLER AND THREADER-C Ot E55.9 VITAMIN D DEFICIENCY, UNSPECIFIED 07/28/2017 NEW, KEITH G. SMOKING PIPE DRILLER AND THREADER-C Ot E78.5 HYPERLIPIDEMIA, UNSPECIFIED 07/28/2017 KEITH BEAUCHAMP SMOKING PIPE DRILLER AND THREADER-C Ot I12.9 HYPERTENSIVE CHRONIC KIDNEY DISEASE W ST 07/28/2017 KEITH BEAUCHAMP SMOKING PIPE DRILLER AND THREADER-C Ot N18.3 CHRONIC KIDNEY DISEASE, STAGE 3 (MODERAT 07/28/2017 KEITH BEAUCHAMP SMOKING PIPE DRILLER AND THREADER-C Ot N25.0 RENAL OSTEODYSTROPHY 07/28/2017 KEITH BEAUCHAMP SMOKING PIPE DRILLER AND THREADER-C Ot R73.01 IMPAIRED FASTING GLUCOSE 07/28/2017 KEITH BEAUCHAMP SMOKING PIPE DRILLER AND THREADER-C Ot R80.9 PROTEINURIA, UNSPECIFIED 07/28/2017 Ot I10 ESSENTIAL ( PRIMARY) HYPERTENSION 07/28/2017 Ot I25.10 ATHSCL HEART DISEASE OF [place] CORONARY 07/28/2017 Ot R00.2 PALPITATIONS 07/28/2017 Ot R06.02 SHORTNESS OF BREATH 07/28/2017 Ot R94.31 ABNORMAL ELECTROCARDIOGRAM [ECG] [EKG] 07/28/2017 MIHAELA STOVER FACC, ALI FACP CCDS Ot I10 ESSENTIAL (PRIMARY) HYPERTENSION 07/28/2017 MIHAELA STOVER FACC, ALI FACP CCDS Ot I25.10 ATHSCL HEART DISEASE OF [place] CORONARY 07/28/2017 MIHAELA STOVER FACC, BETO FACP CCDS Ot R00.2 PALPITATIONS 07/28/2017 MIHAELA STOVER FACC, ALI FACP CCDS Ot R06.02 SHORTNESS OF BREATH 07/28/2017 MIHAELA STOVER FACC, ALI FACP CCDS Ot R94.31 ABNORMAL ELECTROCARDIOGRAM [ECG] [EKG] 07/28/2017 MIHAELA STOVER FACC, ALI FACP CCDS Ot I10 ESSENTIAL (PRIMARY) HYPERTENSION 07/28/2017 MIHAELA STOVER FACC, ALI FACP CCDS Ot I25.10 ATHSCL HEART DISEASE OF [place] CORONARY 07/28/2017 MIHAELA STOVER FACC, ALI FACP CCDS Ot R00.2 PALPITATIONS 07/28/2017 MIHAELA STOVER FACC, ALI FACP CCDS Ot R06.02 SHORTNESS OF BREATH 07/28/2017 MIHAELA STOVER FACC, ALI FACP CCDS Ot R94.31 ABNORMAL ELECTROCARDIOGRAM [ECG] [EKG] 07/28/2017 MIHAELA STOVER FACC, ALI FACP CCDS Ot I10 ESSENTIAL (PRIMARY) HYPERTENSION 07/28/2017 MIHAELA STOVER FACC, ALI FACP CCDS Ot I25.10 ATHSCL HEART DISEASE OF [place] CORONARY 07/28/2017 MIHAELA STOVER FAC, BETO FACP CCDS Ot I73.9 PERIPHERAL VASCULAR DISEASE, UNSPECIFIED 07/28/2017 ADITHYA DORADO MD Ot K80.20 CALCULUS OF GALLBLADDER W/O CHOLECYSTITI 07/28/2017 ADITHYA DORADO MD Ot R19.7 DIARRHEA, UNSPECIFIED 07/28/2017 ADITHYA DORADO MD Ot K59.1 FUNCTIONAL DIARRHEA 07/28/2017 NEW, KEITH G. SMOKING PIPE DRILLER AND THREADER-C Ot D63.1 ANEMIA IN CHRONIC KIDNEY DISEASE 07/28/2017 NEW, KEITH G. SMOKING PIPE DRILLER AND THREADER-C Ot E55.9 VITAMIN D DEFICIENCY, UNSPECIFIED 07/28/2017 NEW, KEITH G. SMOKING PIPE DRILLER AND THREADER-C Ot E78.5 HYPERLIPIDEMIA, UNSPECIFIED 07/28/2017 NEW, KEITH G. SMOKING PIPE DRILLER AND THREADER-C Ot E83.52 HYPERCALCEMIA 07/28/2017 NEW, KEITH G. SMOKING PIPE DRILLER AND THREADER-C Ot I12.9 HYPERTENSIVE CHRONIC KIDNEY DISEASE W ST 07/28/2017 NEW, KEITH G. SMOKING PIPE DRILLER AND THREADER-C Ot N18.3 CHRONIC KIDNEY DISEASE, STAGE 3 (MODERAT 07/28/2017 NEW, EKITH G. SMOKING PIPE DRILLER AND THREADER-C Ot N25.0 RENAL OSTEODYSTROPHY 07/28/2017 NEW, KEITH G. SMOKING PIPE DRILLER AND THREADER-C Ot N39.0 URINARY TRACT INFECTION, SITE NOT SPECIF 07/28/2017 NEW, KEITH G. SMOKING PIPE DRILLER AND THREADER-C Ot R73.01 IMPAIRED FASTING GLUCOSE 07/28/2017 NEW, KEITH G. SMOKING PIPE DRILLER AND THREADER-C Ot R80.9 PROTEINURIA, UNSPECIFIED 07/28/2017 ADITHYA DORADO MD Ot D64.9 ANEMIA, UNSPECIFIED 07/28/2017 ADITHYA DORADO MD Ot N18.9 CHRONIC KIDNEY DISEASE, UNSPECIFIED 07/28/2017 GURMEET BOB APRN Ot D64.9 ANEMIA, UNSPECIFIED 08/07/2017 ADARSH DIOP DO Ot D50.9 IRON DEFICIENCY ANEMIA, UNSPECIFIED 08/07/2017 ADARSH DIOP DO Ot I12.9 HYPERTENSIVE CHRONIC KIDNEY DISEASE W ST 08/07/2017 ADARSH DIOP DO Ot I25.10 ATHSCL HEART DISEASE OF [place] CORONARY 08/07/2017 ADARSH DIOP DO Ot I48.91 UNSPECIFIED ATRIAL FIBRILLATION 08/07/2017 ADARSH DIOP DO Ot I69.354 HEMIPLGA FOLLOWING CEREBRAL INFRC AFFECT 08/07/2017 ADARSH DIOP DO Ot J44.9 CHRONIC OBSTRUCTIVE PULMONARY DISEASE, U 08/07/2017 ADARSH DIOP DO Ot K21.9 GASTRO-ESOPHAGEAL REFLUX DISEASE WITHOUT 08/07/2017 ADARSH DIOP DO Ot K57.30 DVRTCLOS OF LG INT W/O PERFORATION OR AB 08/07/2017 ADARSH DIOP DO Ot K63.5 POLYP OF COLON 08/07/2017 ADARSH DIOP DO Ot N18.9 CHRONIC KIDNEY DISEASE, UNSPECIFIED 08/07/2017 ADARSH DIOP DO Ot 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 08/10/2017 Ot 401.9 HYPERTENSION NOS 08/10/2017 Ot 429.3 CARDIOMEGALY 08/10/2017 Ot 786.2 COUGH 08/10/2017 Ot 920 CONTUSION FACE/ SCALP/NCK 08/10/2017 Ot E000.8 OTHER EXTERNAL CAUSE STATUS 08/10/2017 Ot E888.9 FALL NOS 08/10/2017 Ot V76.12 OTH SCREEN MAMMO-MALIGN NEOPLASM OF [place] 08/10/2017 Ot 401.9 HYPERTENSION NOS 08/10/2017 Ot 593.9 RENAL URETERAL DIS NOS 08/10/2017 Ot 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 08/10/2017 Ot 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, BENIGN, W CHR KD ST 08/10/2017 Ot 585.3 CHRONIC KIDNEY DISEASE, STAGE III (MODER 08/10/2017 Ot 588.0 RENAL OSTEODYSTROPHY 08/10/2017 Ot 285.9 ANEMIA NOS 08/10/2017 Ot 401.9 HYPERTENSION NOS 08/10/2017 Ot 285.9 ANEMIA NOS 08/10/2017 Ot 401.9 HYPERTENSION NOS 08/10/2017 Ot 401.9 HYPERTENSION NOS 08/10/2017 Ot 553.20 VENTRAL HERNIA NOS 08/10/2017 Ot V72.63 PRE- PROCEDURAL LABORATORY EXAMINATION 08/10/2017 Ot V72.81 EXAM-PRE- OPERATIVE CARDIOVASCULAR 08/10/2017 Ot V74.8 SCREEN- BACTERIAL DIS NEC 08/10/2017 Ot 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 08/10/2017 Ot 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, BENIGN, W CHR KD ST 08/10/2017 Ot 585.3 CHRONIC KIDNEY DISEASE, STAGE III (MODER 08/10/2017 Ot 588.0 RENAL OSTEODYSTROPHY 08/10/2017 ESTRADA STOVER, ADITHYA Peter Ot 719.45 JOINT PAIN-PELVIS 08/10/2017 ESTRADA STOVER, ADITHYA Peter Ot 959.6 HIP THIGH INJURY NOS 08/10/2017 ESTRADA STOVER, ADITHYA Peter Ot E000.8 OTHER EXTERNAL CAUSE STATUS 08/10/2017 ESTRADA STOVER, ADITHYA Peter Ot E849.0 ACCIDENT IN HOME 08/10/2017 ESTRADA STOVER, ADITHYA Peter Ot E888.9 FALL NOS 08/10/2017 ESTRADA STOVER, ADITHYA Peter Ot 272.4 HYPERLIPIDEMIA NEC/NOS 08/10/2017 ADITHYA DORADO MD Ot 285.9 ANEMIA NOS 08/10/2017 ESTRADA STOVER, ADITHYA Peter Ot 401.9 HYPERTENSION NOS 08/10/2017 ADITHYA DORADO MD Ot 593.9 RENAL URETERAL DIS NOS 08/10/2017 ESTRADA STOVER, ADITHYA Peter Ot V72.62 LAB EXAM ORDERED PART OF A ROUTINE GE 08/10/2017 ADITHYA DORADO MD Ot 786.09 RESPIRATORY ABNORM NEC 08/10/2017 ADITHYA DORADO MD Ot 786.2 COUGH 08/10/2017 Ot 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 08/10/2017 Ot 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, BENIGN, W CHR KD ST 08/10/2017 Ot 585.3 CHRONIC KIDNEY DISEASE, STAGE III (MODER 08/10/2017 Ot 588.0 RENAL OSTEODYSTROPHY 08/10/2017 Ot 791.0 PROTEINURIA 08/10/2017 SILVIANO SOSA MD Ot 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 08/10/2017 SILVIANO SOSA MD Ot 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, BENIGN, W CHR KD ST 08/10/2017 SILVIANO SOSA MD Ot 585.3 CHRONIC KIDNEY DISEASE, STAGE III (MODER 08/10/2017 SILVIANO SOSA MD Ot 588.0 RENAL OSTEODYSTROPHY 08/10/2017 SILVIANO SOSA MD Ot 791.0 PROTEINURIA 08/10/2017 IAN MD, SILVIANO A Ot 585.4 CHRONIC KIDNEY DISEASE, STAGE IV (SEVERE 08/10/2017 YASMINE DPM, MATILDE P Ot 735.4 OTHER HAMMER TOE 08/10/2017 YASMINE DPM, MATILDE P Ot V72.84 EXAM PRE-OPERATIVE NOS 08/10/2017 YASMINE DPM, MATILDE P Ot V74.8 SCREEN-BACTERIAL DIS NEC 08/10/2017 SILVIANO SOSA MD A Ot 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 08/10/2017 ALEJANDRA SOSA MDETTE A Ot 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, BENIGN, W CHR KD ST 08/10/2017 SILVIANO SOSA MD Ot 585.3 CHRONIC KIDNEY DISEASE, STAGE III (MODER 08/10/2017 ALEJANDRA SOSA MDETTE Brittani Ot 588.0 RENAL OSTEODYSTROPHY 08/10/2017 SILVIANO SOSA MD Ot 791.0 PROTEINURIA 08/10/2017 ADITHYA DORADO MD Ot 786.2 COUGH 08/10/2017 SILVIANO SOSA MD Ot 268.9 VITAMIN D DEFICIENCY NOS 08/10/2017 SILVIANO SOSA MD Ot 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 08/10/2017 SILVIANO SOSA MD Ot 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, BENIGN, W CHR KD ST 08/10/2017 SILVIANO SOSA MD Ot 585.3 CHRONIC KIDNEY DISEASE, STAGE III (MODER 08/10/2017 SILVIANO SOSA MD Ot 588.0 RENAL OSTEODYSTROPHY 08/10/2017 SILVIANO SOSA MD A Ot 791.0 PROTEINURIA 08/10/2017 ADITHYA DORADO MD Ot 715.38 LOC OSTEOAR NOS-SITE NEC 08/10/2017 ADITHYA DORADO MD Ot 719.45 JOINT PAIN-PELVIS 08/10/2017 ADITHYA DORADO MD Ot 722.52 LUMB/LUMBOSAC DISC DEGEN 08/10/2017 ADITHYA DORADO MD Ot 781.2 ABNORMALITY OF GAIT 08/10/2017 SILVIANO SOSA MD A Ot 268.9 VITAMIN D DEFICIENCY NOS 08/10/2017 SILVIANO SOSA MD A Ot 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 08/10/2017 SILVIANO SOSA MD Ot 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, BENIGN, W CHR KD ST 08/10/2017 SILVIANO SOSA MD Ot 585.3 CHRONIC KIDNEY DISEASE, STAGE III (MODER 08/10/2017 SILVIANO SOSA MD Ot 588.0 RENAL OSTEODYSTROPHY 08/10/2017 SILVIANO SOSA MD Ot 791.0 PROTEINURIA 08/10/2017 ADITHYA DORADO MD A Ot 272.4 HYPERLIPIDEMIA NEC/NOS 08/10/2017 ESTRADA STOVER ADITHYA A Ot 401.9 HYPERTENSION NOS 08/10/2017 ADITHYA DORADO MD Ot V58.69 OTH MED,LT,CURRENT USE 08/10/2017 ADITHYA DORADO MD Ot 272.4 HYPERLIPIDEMIA NEC/NOS 08/10/2017 TAMAR DORADO MDY A Ot 401.9 HYPERTENSION NOS 08/10/2017 ADITHYA DORADO MD Ot V58.69 OTH MED,LT,CURRENT USE 08/10/2017 ADITHYA DORADO MD Ot V72.62 LAB EXAM ORDERED PART OF A ROUTINE GE 08/10/2017 SILVIANO SOSA MD Ot 268.9 VITAMIN D DEFICIENCY NOS 08/10/2017 SILVIANO SOSA MD Ot 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 SMOKING PIPE DRILLER AND THREADER-C Ot 588.0 RENAL OSTEODYSTROPHY 08/10/2017 NEW, KEITH G. SMOKING PIPE DRILLER AND THREADER-C Ot 790.21 IMPAIRED FASTING GLUCOSE 08/10/2017 NEW, KEITH G. SMOKING PIPE DRILLER AND THREADER-C Ot 791.0 PROTEINURIA 08/10/2017 NEW, KEITH G. SMOKING PIPE DRILLER AND THREADER-C Ot 268.9 VITAMIN D DEFICIENCY NOS 08/10/2017 NEW, KEITH G. 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 SMOKING PIPE DRILLER AND THREADER-C Ot 588.0 RENAL OSTEODYSTROPHY 08/10/2017 NEW, KEITH G. SMOKING PIPE DRILLER AND THREADER-C Ot 790.21 IMPAIRED FASTING GLUCOSE 08/10/2017 NEW, KEITH G. SMOKING PIPE DRILLER AND THREADER-C Ot 791.0 PROTEINURIA 08/10/2017 NEW, KEITH G. SMOKING PIPE DRILLER AND THREADER-C Ot D63.1 ANEMIA IN CHRONIC KIDNEY DISEASE 08/10/2017 NEW, KEITH GStephen SMOKING PIPE DRILLER AND THREADER-C Ot E55.9 VITAMIN D DEFICIENCY, UNSPECIFIED 08/10/2017 NEW, KEITH G. SMOKING PIPE DRILLER AND THREADER-C Ot E78.5 HYPERLIPIDEMIA, UNSPECIFIED 08/10/2017 NEW, KEITH G. SMOKING PIPE DRILLER AND THREADER-C Ot I12.9 HYPERTENSIVE CHRONIC KIDNEY DISEASE W ST 08/10/2017 NEW, KEITH G. SMOKING PIPE DRILLER AND THREADER-C Ot N18.3 CHRONIC KIDNEY DISEASE, STAGE 3 (MODERAT 08/10/2017 NEW, KEITH G. SMOKING PIPE DRILLER AND THREADER-C Ot N25.0 RENAL OSTEODYSTROPHY 08/10/2017 NEW, KEITH G. SMOKING PIPE DRILLER AND THREADER-C Ot R73.01 IMPAIRED FASTING GLUCOSE 08/10/2017 NEW, KEITH G. SMOKING PIPE DRILLER AND THREADER-C Ot R80.9 PROTEINURIA, UNSPECIFIED 08/10/2017 Ot I10 ESSENTIAL ( PRIMARY) HYPERTENSION 08/10/2017 Ot I25.10 ATHSCL HEART DISEASE OF [place] CORONARY 08/10/2017 Ot R00.2 PALPITATIONS 08/10/2017 Ot R06.02 SHORTNESS OF BREATH 08/10/2017 Ot R94.31 ABNORMAL ELECTROCARDIOGRAM [ECG] [EKG] 08/10/2017 MIHAELA STOVER FACC, ALI FACP CCDS Ot I10 ESSENTIAL (PRIMARY) HYPERTENSION 08/10/2017 MIHAELA STOVER FACC, ALI FACP CCDS Ot I25.10 ATHSCL HEART DISEASE OF [place] CORONARY 08/10/2017 MIHAELA STOVER FACC, ALI FACP CCDS Ot R00.2 PALPITATIONS 08/10/2017 MIHAELA STOVER FACC, ALI FACP CCDS Ot R06.02 SHORTNESS OF BREATH 08/10/2017 MIHAELA STOVER FACC, ALI FACP CCDS Ot R94.31 ABNORMAL ELECTROCARDIOGRAM [ECG] [EKG] 08/10/2017 MIHAELA STOVER FACC, ALI FACP CCDS Ot I10 ESSENTIAL (PRIMARY) HYPERTENSION 08/10/2017 MIHAELA STOVER FACC, ALI FACP CCDS Ot I25.10 ATHSCL HEART DISEASE OF [place] CORONARY 08/10/2017 MIHAELA STOVER FACC, ALI FACP CCDS Ot R00.2 PALPITATIONS 08/10/2017 MIHAELA STOVER FACC, ALI FACP CCDS Ot R06.02 SHORTNESS OF BREATH 08/10/2017 MIHAELA ALVARADOC, ALI FACP CCDS Ot R94.31 ABNORMAL ELECTROCARDIOGRAM [ECG] [EKG] 08/10/2017 MIHAELA ALVARADOC, ALI FACP CCDS Ot I10 ESSENTIAL (PRIMARY) HYPERTENSION 08/10/2017 MIHAELA STOVER FACC, ALI FACP CCDS Ot I25.10 ATHSCL HEART DISEASE OF [place] CORONARY 08/10/2017 MIHAELA ALVARADOC, ALI FACP CCDS Ot I73.9 PERIPHERAL VASCULAR DISEASE, UNSPECIFIED 08/10/2017 ADITHYA DORADO MD Ot K80.20 CALCULUS OF GALLBLADDER W/O CHOLECYSTITI 08/10/2017 ADITHYA DORADO MD Ot R19.7 DIARRHEA, UNSPECIFIED 08/10/2017 ADITHYA DORADO MD Ot K59.1 FUNCTIONAL DIARRHEA 08/10/2017 ADITHYA DORADO MD Ot D64.9 ANEMIA, UNSPECIFIED 08/10/2017 ESTRADA MD, ADITHYA A Ot N18.9 CHRONIC KIDNEY DISEASE, UNSPECIFIED 08/10/2017 GURMEET BOB INSPECTOR RETURNED MATERIALS Ot D64.9 ANEMIA, UNSPECIFIED 08/10/2017 ESTRADA STOVER, ADITHYA Peter Ot K59.1 FUNCTIONAL DIARRHEA 08/17/2017 GURMEET BOB INSPECTOR RETURNED MATERIALS Ot D64.9 ANEMIA, UNSPECIFIED 11/22/2017 Ot 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 11/22/2017 Ot 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, BENIGN, W CHR KD ST 11/22/2017 Ot 585.3 CHRONIC KIDNEY DISEASE, STAGE III (MODER 11/22/2017 Ot 588.0 RENAL OSTEODYSTROPHY 11/22/2017 Ot 285.9 ANEMIA NOS 11/22/2017 Ot 401.9 HYPERTENSION NOS 11/22/2017 Ot 285.9 ANEMIA NOS 11/22/2017 Ot 401.9 HYPERTENSION NOS 11/22/2017 Ot 401.9 HYPERTENSION NOS 11/22/2017 Ot 553.20 VENTRAL HERNIA NOS 11/22/2017 Ot V72.63 PRE- PROCEDURAL LABORATORY EXAMINATION 11/22/2017 Ot V72.81 EXAM-PRE- OPERATIVE CARDIOVASCULAR 11/22/2017 Ot V74.8 SCREEN- BACTERIAL DIS NEC 11/22/2017 Ot 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 11/22/2017 Ot 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, BENIGN, W CHR KD ST 11/22/2017 Ot 585.3 CHRONIC KIDNEY DISEASE, STAGE III (MODER 11/22/2017 Ot 588.0 RENAL OSTEODYSTROPHY 11/22/2017 ESTRADA STOVER, ADITHYA Peter Ot 719.45 JOINT PAIN-PELVIS 11/22/2017 ADITHYA DORADO MD Ot 959.6 HIP THIGH INJURY NOS 11/22/2017 ADITHYA DORADO MD Ot E000.8 OTHER EXTERNAL CAUSE STATUS 11/22/2017 ADITHYA DORADO MD Ot E849.0 ACCIDENT IN HOME 11/22/2017 ADITHYA DORADO MD Ot E888.9 FALL NOS 11/22/2017 ADITHYA DORADO MD Ot 272.4 HYPERLIPIDEMIA NEC/NOS 11/22/2017 ADITHYA DORADO MD Ot 285.9 ANEMIA NOS 11/22/2017 ADITHYA DORADO MD Ot 401.9 HYPERTENSION NOS 11/22/2017 ADITHYA DORADO MD Ot 593.9 RENAL URETERAL DIS NOS 11/22/2017 ADITHYA DORADO MD Ot V72.62 LAB EXAM ORDERED PART OF A ROUTINE GE 11/22/2017 ADITHYA DORADO MD Ot 786.09 RESPIRATORY ABNORM NEC 11/22/2017 ADITHYA DORADO MD Ot 786.2 COUGH 11/22/2017 Ot 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 11/22/2017 Ot 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, BENIGN, W CHR KD ST 11/22/2017 Ot 585.3 CHRONIC KIDNEY DISEASE, STAGE III (MODER 11/22/2017 Ot 588.0 RENAL OSTEODYSTROPHY 11/22/2017 Ot 791.0 PROTEINURIA 11/22/2017 SILVIANO SOSA MD Ot 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 11/22/2017 SILVIANO SOSA MD Ot 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, BENIGN, W CHR KD ST 11/22/2017 SILVIANO SOSA MD Ot 585.3 CHRONIC KIDNEY DISEASE, STAGE III (MODER 11/22/2017 SILVIANO SOSA MD Ot 588.0 RENAL OSTEODYSTROPHY 11/22/2017 SILVIANO SOSA MD Ot 791.0 PROTEINURIA 11/22/2017 SILVIANO SOSA MD Ot 585.4 CHRONIC KIDNEY DISEASE, STAGE IV (SEVERE 11/22/2017 UNDERWOOD DPM, MATILDE P Ot 735.4 OTHER HAMMER TOE 11/22/2017 YASMINE DPM, MATILDE P Ot V72.84 EXAM PRE-OPERATIVE NOS 11/22/2017 YASMINE DPM, MATILDE P Ot V74.8 SCREEN-BACTERIAL DIS NEC 11/22/2017 SILVIANO SOSA MD Ot 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 11/22/2017 SILVIANO SOSA MD Ot 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, BENIGN, W CHR KD ST 11/22/2017 SILVIANO SOSA MD Ot 585.3 CHRONIC KIDNEY DISEASE, STAGE III (MODER 11/22/2017 SILVIANO SOSA MD Ot 588.0 RENAL OSTEODYSTROPHY 11/22/2017 SILVIANO SOSA MD Ot 791.0 PROTEINURIA 11/22/2017 ADITHYA DORADO MD Ot 786.2 COUGH 11/22/2017 SILVIANO SOSA MD Ot 268.9 VITAMIN D DEFICIENCY NOS 11/22/2017 SILVIANO SOSA MD Ot 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 11/22/2017 SILVIANO SOSA MD Ot 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, BENIGN, W CHR KD ST 11/22/2017 SILVIANO SOSA MD Ot 585.3 CHRONIC KIDNEY DISEASE, STAGE III (MODER 11/22/2017 SILVIANO SOSA MD Ot 588.0 RENAL OSTEODYSTROPHY 11/22/2017 SILVIANO SOSA MD Ot 791.0 PROTEINURIA 11/22/2017 ADITHYA DORADO MD Ot 715.38 LOC OSTEOAR NOS-SITE NEC 11/22/2017 ADITHYA DORADO MD Ot 719.45 JOINT PAIN-PELVIS 11/22/2017 ADITHYA DORADO MD Ot 722.52 LUMB/LUMBOSAC DISC DEGEN 11/22/2017 ADITHYA DORADO MD Ot 781.2 ABNORMALITY OF GAIT 11/22/2017 SILVIANO SOSA MD Ot 268.9 VITAMIN D DEFICIENCY NOS 11/22/2017 SILVIANO SOSA MD Ot 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 11/22/2017 SILVIANO SOSA MD Ot 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, BENIGN, W CHR KD ST 11/22/2017 SILVIANO SOSA MD Ot 585.3 CHRONIC KIDNEY DISEASE, STAGE III (MODER 11/22/2017 SILVIANO SOSA MD Ot 588.0 RENAL OSTEODYSTROPHY 11/22/2017 SILVIANO SOSA MD Ot 791.0 PROTEINURIA 11/22/2017 ADITHYA DORADO MD Ot 272.4 HYPERLIPIDEMIA NEC/NOS 11/22/2017 ADITHYA DORADO MD Ot 401.9 HYPERTENSION NOS 11/22/2017 ADITHYA DORADO MD Ot V58.69 OTH MED,LT,CURRENT USE 11/22/2017 ADITHYA DORADO MD Ot 272.4 HYPERLIPIDEMIA NEC/NOS 11/22/2017 ADITHYA DORADO MD Ot 401.9 HYPERTENSION NOS 11/22/2017 ADITHYA DORADO MD Ot V58.69 OTH MED,LT,CURRENT USE 11/22/2017 ESTRADA STOVER, ADITHYA A Ot V72.62 LAB EXAM ORDERED PART OF A ROUTINE GE 11/22/2017 SILVIANO SOSA MD Ot 268.9 VITAMIN D DEFICIENCY NOS 11/22/2017 SILVIANO SOSA MD A Ot 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 11/22/2017 SILVIANO SOSA MD Ot 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, BENIGN, W CHR KD ST 11/22/2017 SILVIANO SOSA MD Ot 585.3 CHRONIC KIDNEY DISEASE, STAGE III (MODER 11/22/2017 SILVAINO SOSA MD Ot 588.0 RENAL OSTEODYSTROPHY 11/22/2017 SILVIANO SOSA MD Ot 791.0 PROTEINURIA 11/22/2017 Ot 429.3 CARDIOMEGALY 11/22/2017 Ot 786.52 PAINFUL RESPIRATION 11/22/2017 Ot E000.8 OTHER EXTERNAL CAUSE STATUS 11/22/2017 Ot E888.9 FALL NOS 11/22/2017 KEITH BEAUCHAMP [employer] Ot 268.9 VITAMIN D DEFICIENCY NOS 11/22/2017 NEWKEITH [employer]-C Ot 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 11/22/2017 KEITH BEAUCHAMP [employer]-C Ot 403.10 [facility] W CHR KD [facility] 11/22/2017 KEITH BEAUCHAMP [employer]-C Ot 585.3 CHRONIC KIDNEY DISEASE, STAGE III (MODER 11/22/2017 KEITH BEAUCHAMP [employer]-C Ot 588.0 RENAL OSTEODYSTROPHY 11/22/2017 KEITH BEAUCHAMP G. [employer]ER-C Ot 790.21 IMPAIRED FASTING GLUCOSE 11/22/2017 NEW KEITH G. [employer]-C Ot 791.0 PROTEINURIA 11/22/2017 NEW KEITH G. [employer]-C Ot 268.9 VITAMIN D DEFICIENCY NOS 11/22/2017 NEW KEITH G. [employer]-C Ot 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 11/22/2017 KEITH BEAUCHAMP G. 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, BENIGN, W CHR KD ST 11/22/2017 KEITH BEAUCHAMP [employer]-C Ot 585.3 CHRONIC KIDNEY DISEASE, STAGE III (MODER 11/22/2017 KEITH BEAUCHAMP [employer]-C Ot 588.0 RENAL OSTEODYSTROPHY 11/22/2017 NEW, KEITH So [employer]-C Ot 790.21 IMPAIRED FASTING GLUCOSE 11/22/2017 NEW, KEITH So [employer]-C Ot 791.0 PROTEINURIA 11/22/2017 NEW, KEITH So [employer]-C Ot D63.1 ANEMIA IN CHRONIC KIDNEY DISEASE 11/22/2017 NEW, KEITH So [employer]-C Ot E55.9 VITAMIN D DEFICIENCY, UNSPECIFIED 11/22/2017 NEW, KEITH So [employer]-C Ot E78.5 HYPERLIPIDEMIA, UNSPECIFIED 11/22/2017 NEW, KEITH So [employer]-C Ot I12.9 HYPERTENSIVE CHRONIC KIDNEY DISEASE W ST 11/22/2017 NEW, KEITH So [employer]-C Ot N18.3 CHRONIC KIDNEY DISEASE, STAGE 3 (MODERAT 11/22/2017 NEW, KEITH So [employer]-C Ot N25.0 RENAL OSTEODYSTROPHY 11/22/2017 NEW, KEITH So [employer]-C Ot R73.01 IMPAIRED FASTING GLUCOSE 11/22/2017 NEW, KEITH So [employer]-C Ot R80.9 PROTEINURIA, UNSPECIFIED 11/22/2017 Ot I10 ESSENTIAL ( PRIMARY) HYPERTENSION 11/22/2017 Ot I25.10 ATHSCL HEART DISEASE OF [place] CORONARY 11/22/2017 Ot R00.2 PALPITATIONS 11/22/2017 Ot R06.02 SHORTNESS OF BREATH 11/22/2017 Ot R94.31 ABNORMAL ELECTROCARDIOGRAM [ECG] [EKG] 11/22/2017 MIHAELA STOVER FACC, BETO FACP CCDS Ot I10 ESSENTIAL (PRIMARY) HYPERTENSION 11/22/2017 MIHAELA STOVER FACC, ALI FACP CCDS Ot I25.10 ATHSCL HEART DISEASE OF [place] CORONARY 11/22/2017 MIHAELA STOVER FACC, ALI FACP CCDS Ot R00.2 PALPITATIONS 11/22/2017 MIHAELA STOVER FACC, ALI FACP CCDS Ot R06.02 SHORTNESS OF BREATH 11/22/2017 MIHAELA STOVER FACC, BETO FACP CCDS Ot R94.31 ABNORMAL ELECTROCARDIOGRAM [ECG] [EKG] 11/22/2017 MIHAELA STOVER FACC, BETO FACP CCDS Ot I10 ESSENTIAL (PRIMARY) HYPERTENSION 11/22/2017 MIHAELA STOVER FACC, ALI FACP CCDS Ot I25.10 ATHSCL HEART DISEASE OF [place] CORONARY 11/22/2017 MIHAELA STOVER FACC, BETO FACP CCDS Ot R00.2 PALPITATIONS 11/22/2017 MIHAELA STOVER FACC, ALI FACP CCDS Ot R06.02 SHORTNESS OF BREATH 11/22/2017 MIHAELA STOVER FACC, ALI FACP CCDS Ot R94.31 ABNORMAL ELECTROCARDIOGRAM [ECG] [EKG] 11/22/2017 MIHAELA STOVER FACC, ALI FACP CCDS Ot I10 ESSENTIAL (PRIMARY) HYPERTENSION 11/22/2017 MIHAELA STOVER FACC, ALI FACP CCDS Ot I25.10 ATHSCL HEART DISEASE OF [place] CORONARY 11/22/2017 MIHAELA STOVER FACC, BETO FACP CCDS Ot I73.9 PERIPHERAL VASCULAR DISEASE, UNSPECIFIED 11/22/2017 ADITHYA DORADO MD Ot K80.20 CALCULUS OF GALLBLADDER W/O CHOLECYSTITI 11/22/2017 ADITHYA DORADO MD Ot R19.7 DIARRHEA, UNSPECIFIED 11/22/2017 ADITHYA DORADO MD Ot K59.1 FUNCTIONAL DIARRHEA 11/22/2017 NEWKEITH [employer]-C Ot D63.1 ANEMIA IN CHRONIC KIDNEY DISEASE 11/22/2017 KEITH BEAUCHAMP [employer]KING [employer]-C Ot E55.9 VITAMIN D DEFICIENCY, UNSPECIFIED 11/22/2017 KEITH BEAUCHAMP [employer]-C Ot E78.5 HYPERLIPIDEMIA, UNSPECIFIED 11/22/2017 KEITH BEAUCHAMP [employer]-C Ot E83.52 HYPERCALCEMIA 11/22/2017 KEITH BEAUCHAMP S[employer]-C Ot I12.9 HYPERTENSIVE CHRONIC KIDNEY DISEASE W ST 11/22/2017 NEWKEITH GStephen [employer]-C Ot N18.3 CHRONIC KIDNEY DISEASE, STAGE 3 (MODERAT 11/22/2017 NEW KEITH G. [employer]-C Ot N25.0 RENAL OSTEODYSTROPHY 11/22/2017 NEWKEITH GStephen [employer]-C Ot N39.0 URINARY TRACT INFECTION, SITE NOT SPECIF 11/22/2017 KEITH BEAUCHAMP GStephen [employer]-C Ot R73.01 IMPAIRED FASTING GLUCOSE 11/22/2017 KEITH BEAUCHAMP [employer]-C Ot R80.9 PROTEINURIA, UNSPECIFIED 11/22/2017 ADITHYA DORADO MD Ot D64.9 ANEMIA, UNSPECIFIED 11/22/2017 ESTRADA STOVER, ADITHYA Peter Ot N18.9 CHRONIC KIDNEY DISEASE, UNSPECIFIED 11/22/2017 GURMEET BOB APRN Ot D64.9 ANEMIA, UNSPECIFIED 11/23/2017 DIOP ADARSH GUTIÉRREZ Ot D50.9 IRON DEFICIENCY ANEMIA, UNSPECIFIED 11/23/2017 ADARSH DIOP DO Ot Z01.818 ENCOUNTER FOR OTHER PREPROCEDURAL EXAMIN 11/30/2017 ADARSH DIOP DO Ot D50.9 IRON DEFICIENCY ANEMIA, UNSPECIFIED 11/30/2017 ADARSH DIOP DO Ot I10 ESSENTIAL (PRIMARY) HYPERTENSION 11/30/2017 ADARSH DIOP DO Ot I69.354 HEMIPLGA FOLLOWING CEREBRAL INFRC AFFECT 11/30/2017 ADARSH DIOP DO Ot J44.9 CHRONIC OBSTRUCTIVE PULMONARY DISEASE, U 11/30/2017 ADARSH DIOP DO Ot K21.9 GASTRO-ESOPHAGEAL REFLUX DISEASE WITHOUT 11/30/2017 ADARSH DIOP DO Ot K44.9 DIAPHRAGMATIC HERNIA WITHOUT OBSTRUCTION 11/30/2017 ADARSH DIOP DO Ot K57.30 DVRTCLOS OF LG INT W/O PERFORATION OR AB 11/30/2017 ADARSH DIOP DO Ot N19 UNSPECIFIED KIDNEY FAILURE 11/30/2017 ADARSH DIOP DO Ot Z79.899 OTHER [facility] (CURRENT) DRUG THERAPY 12/13/2017 KEITH BEAUCHAMP Ot D63.1 ANEMIA IN CHRONIC KIDNEY DISEASE 12/13/2017 KEITH BEAUCHAMP Ot N18.3 CHRONIC KIDNEY DISEASE, STAGE 3 (MODERAT Procedures Code Description Performed By Performed On 53.72 [facility] OPEN REPAIR OF DIAPHRAGMATIC HERNI 08/12/2011 53.62 LAPAROSCOPIC INCISIONAL HERNIA REPAIR W 11/08/2012 54.51 LAPAROSCOP LYSIS-PERITONEAL ADHES 11/08/2012 [id number] IRRIGATION OF UPPER GI USING IRRIGATING 04/09/2017 [id number] EXCISION OF STOMACH, PYLORUS, ENDO, DIAG 04/11/2017 [id number] EXCISION OF DUODENUM, ENDO , DIAGN 04/11/2017 [id number] CONTROL BLEEDING IN GASTROINTESTINAL TRA 04/11/2017 Results Test Result Range C DIFFICILE AG + TOXIN A/B. - 03/30/17 18:39 RESULTS NEGATIVE FOR ANTIGEN AND TOXIN A/B [facility] Complete blood count (CBC) with automated white blood cell (WBC) differential - 04/09/17 17:04 Blood leukocytes automated count (number/volume) 13.3 10*3/uL 4.3-11.0 Blood erythrocytes automated count (number/volume) 2.27 10*6/uL 4.35-5.85 Venous blood hemoglobin measurement (mass/volume) 6.9 [...] Automated blood platelet mean volume measurement 10.9 [foz_us] 7.4-10.4 Automated blood neutrophils/100 leukocytes 79 % [...] Serum or plasma sodium measurement (moles/volume) 137 mmol/L 135-145 Serum or plasma potassium measurement (moles/volume) 6.7 mmol/L 3.6-5.0 Serum or plasma chloride measurement (moles/volume) 114 mmol/L 98-107 Carbon dioxide 14 mmol/L 21-32 Serum or plasma anion gap determination (moles/volume) 9 mmol/L 5-14 Serum or plasma urea nitrogen measurement (mass/volume) 59 mg/dL 7-18 Serum or plasma creatinine measurement (mass/volume) 2.28 mg/dL 0.60-1.30 Serum or plasma urea nitrogen/creatinine mass ratio 26 0 -20 Serum or plasma creatinine measurement with calculation [...] 17:47 RED CELLS LEUKO REDUCED AS1 TRANSFUSED 04/09/17 1917 [facility] Blood type T Indirect antibody screen panel - 04/09/17 17:47 ABO+Rh group OP [facility] Transfusion band number [id number] Blood group antibody screen NEGATIVE NRG Bacterial blood culture - 04/09/17 18:15 Bacterial blood culture NG NRG Bacterial blood culture - 04/09/17 19:25 Bacterial blood culture NG NR Complete urinalysis with reflex to culture - 04/09/17 22:43 Urine color determination YELLOW NRG Urine clarity determination SLIGHTLY CLOUDY NR Urine pH measurement by test strip 5 5-9 Specific gravity of urine by test strip 1.015 1.016- 1.022 Urine protein assay by test strip, semi-quantitative [...] culture - 04/09/17 22:43 Bacterial urine culture [id number] NRG COLONY COUNT >100,000/ML NRG FTX;REPORTABLE SENSITIVITY REPORTED 04/11/17 8:15 NRG Bacterial susceptibility panel - 04/09/17 22:43 Gentamicin susceptibility test by minimum inhibitory concentration < = NRG Trimethoprim/sulfamethoxazole susceptibility test by minimum inhibitoryconcentration <= NRG Ampicillin susceptibility test by minimum inhibitory concentration > = NRG Tobramycin susceptibility test by minimum inhibitory concentration < = NRG Cefazolin susceptibility test by minimum inhibitory concentration < = NRG Ceftriaxone susceptibility test by minimum inhibitory concentration <= NRG Ampicillin/sulbactam susceptibility test by minimum inhibitory concentration <= NRG Piperacillin/tazobactam susceptibility test by minimum inhibitory concentration 8 NRG Ciprofloxacin susceptibility test by minimum inhibitory concentration <= NRG Meropenem susceptibility test by minimum inhibitory concentration < = NRG Nitrofurantoin susceptibility test by minimum inhibitory concentration <= NRG Aztreonam susceptibility test by minimum inhibitory concentration < = NRG Extended spectrum beta lactamase (ESBL) producing bacteria susceptibility test by minimum inhibitory concentration - NR Whole blood hemoglobin and hematocrit panel - 04/10/17 05:10 Venous blood hemoglobin measurement (mass/volume) 9.7 g/dL 11.5-16.0 Blood hematocrit (volume fraction) 29 % 35-52 Comprehensive metabolic panel - 04/10/17 05:10 Serum or plasma sodium measurement (moles/volume) 139 mmol/L 135-145 Serum or plasma potassium measurement (moles/volume) 6.2 mmol/L 3.6-5.0 Serum or plasma chloride measurement (moles/volume) 113 mmol/L 98-107 Carbon dioxide 15 mmol/L 21-32 Serum or plasma anion gap determination (moles/volume) 11 mmol/L 5-14 Serum or plasma urea nitrogen measurement (mass/volume) 68 mg/dL 7-18 Serum or plasma creatinine measurement (mass/volume) 2.36 mg/dL 0.60-1.30 Serum or plasma urea nitrogen/creatinine mass ratio 29 0 -20 Serum or plasma creatinine measurement with calculation [...] 03:48 Blood leukocytes automated count (number/volume) 13.6 10*3/uL 4.3-11.0 Blood erythrocytes automated count (number/volume) 2.41 10*6/uL 4.35-5.85 Venous blood hemoglobin measurement (mass/volume) 7.3 [...] Automated blood platelet mean volume measurement 11.1 [foz_us] 7.4-10.4 Automated blood neutrophils/100 leukocytes 82 % [...] Serum or plasma sodium measurement (moles/volume) 143 mmol/L 135-145 Serum or plasma potassium measurement (moles/volume) 5.0 mmol/L 3.6-5.0 Serum or plasma chloride measurement (moles/volume) 119 mmol/L 98-107 Carbon dioxide 15 mmol/L 21-32 Serum or plasma anion gap determination (moles/volume) 9 mmol/L 5-14 Serum or plasma urea nitrogen measurement (mass/volume) 72 mg/dL 7-18 Serum or plasma creatinine measurement (mass/volume) 2.32 mg/dL 0.60-1.30 Serum or plasma urea nitrogen/creatinine mass ratio 31 0 -20 Serum or plasma creatinine measurement with calculation of estimated glomerular filtration rate 20 NRG Serum or plasma glucose measurement (mass/volume) 108 mg/dL 70-105 Serum or plasma calcium measurement (mass/volume) 7.9 mg/dL 8.5-10.1 Serum or plasma phosphate measurement (mass/volume) - 04/11/17 03:48 Serum or plasma phosphate measurement (mass/volume) 3.6 mg/dL 2.3-4.7 Magnesium - 04/11/17 03:48 Magnesium 1.7 mg/dL 1.8-2.4 Whole blood hemoglobin and hematocrit panel - 04/11/17 20:45 Venous blood hemoglobin measurement (mass/volume) 10.3 g/dL 11.5-16.0 Blood hematocrit (volume fraction) 32 % 35-52 Complete blood count (CBC) with automated white blood cell (WBC) differential - 04/12/17 03:45 Blood leukocytes automated count (number/volume) 14.9 10*3/uL 4.3-11.0 Blood erythrocytes automated count (number/volume) 3.40 10*6/uL 4.35-5.85 Venous blood hemoglobin measurement (mass/volume) 10.3 [...] Automated blood platelet mean volume measurement 11.8 [foz_us] 7.4-10.4 Automated blood neutrophils/100 leukocytes 84 % [...] Serum or plasma sodium measurement (moles/volume) 145 mmol/L 135-145 Serum or plasma potassium measurement (moles/volume) 4.4 mmol/L 3.6-5.0 Serum or plasma chloride measurement (moles/volume) 120 mmol/L 98-107 Carbon dioxide 14 mmol/L 21-32 Serum or plasma anion gap determination (moles/volume) 11 mmol/L 5-14 Serum or plasma urea nitrogen measurement (mass/volume) 61 mg/dL 7-18 Serum or plasma creatinine measurement (mass/volume) 2.18 mg/dL 0.60-1.30 Serum or plasma urea nitrogen/creatinine mass ratio 28 NRG Serum or plasma creatinine measurement with calculation of estimated glomerular filtration rate 21 NRG Serum or plasma glucose measurement (mass/volume) 139 mg/dL 70-105 Serum or plasma calcium measurement (mass/volume) 8.2 mg/dL 8.5-10.1 Serum or plasma phosphate measurement (mass/volume) - 04/12/17 03:45 Serum or plasma phosphate measurement (mass/volume) 3.8 mg/dL 2.3-4.7 Magnesium - 04/12/17 03:45 Magnesium 2.3 mg/dL 1.8-2.4 Blood lactic acid measurement (moles/volume) - 04/12/17 07:01 Blood lactic acid measurement (moles/volume) 0.94 mmol/L 0.50-2.00 Bacterial blood culture - 04/12/17 07:01 Bacterial blood culture NG NRG Bacterial blood culture - 04/12/17 07:14 Bacterial blood culture NG NRG Bacterial blood culture - 04/12/17 07:56 Bacterial blood culture NG NR Whole blood hemoglobin and hematocrit panel - 04/12/17 15:50 Venous blood hemoglobin measurement (mass/volume) 10.8 g/dL 11.5-16.0 Blood hematocrit (volume fraction) 34 % 35-52 Complete urinalysis with reflex to culture - 04/12/17 19:00 Urine color determination YELLOW NRG Urine clarity determination CLEAR NRG Urine pH measurement by test strip 5 5-9 Specific gravity of urine by test strip 1.015 1.016- 1.022 Urine protein assay by test strip, semi-quantitative [...] culture - 04/12/17 19:00 Bacterial urine culture [id number] NRG COLONY COUNT 10,000/ML - 100,000/ML NRG Complete blood count (CBC) with automated white blood cell (WBC) differential - 04/13/17 06:15 Blood leukocytes automated count (number/volume) 13.0 10*3/uL 4.3-11.0 Blood erythrocytes automated count (number/volume) 3.18 10*6/uL 4.35-5.85 Venous blood hemoglobin measurement (mass/volume) 9.5 [...] Automated blood platelet mean volume measurement 10.6 [foz_us] 7.4-10.4 Automated blood neutrophils/100 leukocytes 82 % [...] Serum or plasma sodium measurement (moles/volume) 143 mmol/L 135-145 Serum or plasma potassium measurement (moles/volume) 3.4 mmol/L 3.6-5.0 Serum or plasma chloride measurement (moles/volume) 118 mmol/L 98-107 Carbon dioxide 16 mmol/L 21-32 Serum or plasma anion gap determination (moles/volume) 9 mmol/L 5-14 Serum or plasma urea nitrogen measurement (mass/volume) 41 mg/dL 7-18 Serum or plasma creatinine measurement (mass/volume) 1.73 mg/dL 0.60-1.30 Serum or plasma urea nitrogen/creatinine mass ratio 24 NRG Serum or plasma creatinine measurement with calculation of estimated glomerular filtration rate 28 NRG Serum or plasma glucose measurement (mass/volume) 120 mg/dL 70-105 Serum or plasma calcium measurement (mass/volume) 7.7 mg/dL 8.5-10.1 Serum or plasma phosphate measurement (mass/volume) - 04/13/17 06:15 Serum or plasma phosphate measurement (mass/volume) 2.7 mg/dL 2.3-4.7 Magnesium - 04/13/17 06:15 Magnesium 1.7 mg/dL 1.8-2.4 Vancomycin trough - 04/13/17 08:12 Vancomycin trough 15.2 ug/mL 10.0-20.0 Whole blood hemoglobin and hematocrit panel - 04/13/17 17:56 Venous blood hemoglobin measurement (mass/volume) 9.6 g/dL 11.5-16.0 Blood hematocrit (volume fraction) 30 % 35-52 Complete blood count (CBC) with automated white blood cell (WBC) differential - 04/14/17 05:15 Blood leukocytes automated count (number/volume) 13.5 10*3/uL 4.3-11.0 Blood erythrocytes automated count (number/volume) 3.38 10*6/uL 4.35-5.85 Venous blood hemoglobin measurement (mass/volume) 10.1 g/dL 11.5-16.0 Blood hematocrit (volume fraction) 31 % 35-52 Automated erythrocyte mean corpuscular volume 93 [foz_us] 80-99 Automated erythrocyte mean corpuscular hemoglobin (mass per erythrocyte) 30 pg 25-34 Automated erythrocyte mean corpuscular hemoglobin concentration measurement ( mass/volume) 32 g/dL 32-36 Automated erythrocyte distribution width ratio 17.7 % 10.0-14.5 Automated blood platelet count (count/volume) 146 10*3/uL 130-400 Automated blood platelet mean volume measurement 11.1 [foz_us] 7.4-10.4 Automated blood neutrophils/100 leukocytes 77 % 42-75 Automated blood lymphocytes/100 leukocytes 12 % 12-44 Blood monocytes/100 leukocytes 7 % 0-12 Automated blood eosinophils/100 leukocytes 3 % 0-10 Automated blood basophils/100 leukocytes 1 % 0-10 Blood neutrophils automated count (number/volume) 10.5 10*3 1.8-7.8 Blood lymphocytes automated count (number/volume) 1.6 10*3 1.0-4.0 Blood monocytes automated count (number/volume) 1.0 10*3 0.0-1.0 Automated eosinophil count 0.5 10*3/uL 0.0-0.3 Automated blood basophil count (count/volume) 0.1 10*3/uL 0.0-0.1 Whole blood basic metabolic panel - 04/14/17 05:15 Serum or plasma sodium measurement (moles/volume) 141 mmol/L 135-145 Serum or plasma potassium measurement (moles/volume) 3.2 mmol/L 3.6-5.0 Serum or plasma chloride measurement (moles/volume) 116 mmol/L 98-107 Carbon dioxide 17 mmol/L 21-32 Serum or plasma anion gap determination (moles/volume) 8 mmol/L 5-14 Serum or plasma urea nitrogen measurement (mass/volume) 29 mg/dL 7-18 Serum or plasma creatinine measurement (mass/volume) 1.63 mg/dL 0.60-1.30 Serum or plasma urea nitrogen/creatinine mass ratio 18 NRG Serum or plasma creatinine measurement with calculation of estimated glomerular filtration rate 30 NRG Serum or plasma glucose measurement (mass/volume) 105 mg/dL 70-105 Serum or plasma calcium measurement (mass/volume) 7.9 mg/dL 8.5-10.1 Serum or plasma phosphate measurement (mass/volume) - 04/14/17 05:15 Serum or plasma phosphate measurement (mass/volume) 2.1 mg/dL 2.3-4.7 Magnesium - 04/14/17 05:15 Magnesium 1.7 mg/dL 1.8-2.4 Vancomycin trough - 04/14/17 06:59 Vancomycin trough 21.0 ug/mL 10.0-20.0 Vancomycin trough - 04/14/17 20:00 Vancomycin trough 17.7 ug/mL 10.0-20.0 Automated blood complete blood count (hemogram) panel - 04/15/17 05:12 Blood leukocytes automated count (number/volume) 12.0 10*3/uL 4.3-11.0 Blood erythrocytes automated count (number/volume) 2.89 10*6/uL 4.35-5.85 Venous blood hemoglobin measurement (mass/volume) 8.8 g/dL 11.5-16.0 Blood hematocrit (volume fraction) 27 % 35-52 Automated erythrocyte mean corpuscular volume 92 [foz_us] 80-99 Automated erythrocyte mean corpuscular hemoglobin (mass per erythrocyte) 30 pg 25-34 Automated erythrocyte mean corpuscular hemoglobin concentration measurement ( mass/volume) 33 g/dL 32-36 Automated erythrocyte distribution width ratio 17.1 % 10.0-14.5 Automated blood platelet count (count/volume) 115 10*3/uL 130-400 Automated blood platelet mean volume measurement 11.3 [foz_us] 7.4-10.4 Comprehensive metabolic panel - 04/15/17 05:12 Serum or plasma sodium measurement (moles/volume) 140 mmol/L 135-145 Serum or plasma potassium measurement (moles/volume) 2.8 mmol/L 3.6-5.0 Serum or plasma chloride measurement (moles/volume) 115 mmol/L 98-107 Carbon dioxide 16 mmol/L 21-32 Serum or plasma anion gap determination (moles/volume) 9 mmol/L 5-14 Serum or plasma urea nitrogen measurement (mass/volume) 24 mg/dL 7-18 Serum or plasma creatinine measurement (mass/volume) 1.66 mg/dL 0.60-1.30 Serum or plasma urea nitrogen/creatinine mass ratio 14 NRG Serum or plasma creatinine measurement with calculation of estimated glomerular filtration rate 29 NRG Serum or plasma glucose measurement (mass/volume) 92 mg/dL 70-105 Serum or plasma calcium measurement (mass/volume) 7.4 mg/dL 8.5-10.1 Serum or plasma total bilirubin measurement (mass/volume) 0.5 mg/dL 0.1-1.0 Serum or plasma alkaline phosphatase measurement (enzymatic activity/volume) 52 U/L 40-136 Serum or plasma aspartate aminotransferase measurement (enzymatic activity/ volume) 21 U/L 5-34 Serum or plasma alanine aminotransferase measurement (enzymatic activity/volume ) 11 U/L 0-55 Serum or plasma protein measurement (mass/volume) 5.0 g/dL 6.4-8.2 Serum or plasma albumin measurement (mass/volume) 2.2 g/dL 3.2-4.5 Magnesium - 04/15/17 05:12 Magnesium 1.4 mg/dL 1.8-2.4 Automated blood complete blood count (hemogram) panel - 04/15/17 18:00 Blood leukocytes automated count (number/volume) 14.9 10*3/uL 4.3-11.0 Blood erythrocytes automated count (number/volume) 3.27 10*6/uL 4.35-5.85 Venous blood hemoglobin measurement (mass/volume) 9.8 g/dL 11.5-16.0 Blood hematocrit (volume fraction) 30 % 35-52 Automated erythrocyte mean corpuscular volume 92 [foz_us] 80-99 Automated erythrocyte mean corpuscular hemoglobin (mass per erythrocyte) 30 pg 25-34 Automated erythrocyte mean corpuscular hemoglobin concentration measurement ( mass/volume) 33 g/dL 32-36 Automated erythrocyte distribution width ratio 17.2 % 10.0-14.5 Automated blood platelet count (count/volume) 154 10*3/uL 130-400 Automated blood platelet mean volume measurement 11.3 [foz_us] 7.4-10.4 Serum or plasma renal function panel (Na, K, Cl, CO2, BUN, Cr, glucose,Ca, phos , alb) - 04/15/17 18:00 Serum or plasma sodium measurement (moles/volume) 135 mmol/L 135-145 Serum or plasma potassium measurement (moles/volume) 4.1 mmol/L 3.6-5.0 Serum or plasma chloride measurement (moles/volume) 114 mmol/L 98-107 Carbon dioxide 13 mmol/L 21-32 Serum or plasma anion gap determination (moles/volume) 8 mmol/L 5-14 Serum or plasma urea nitrogen measurement (mass/volume) 23 mg/dL 7-18 Serum or plasma creatinine measurement (mass/volume) 1.82 mg/dL 0.60-1.30 Serum or plasma urea nitrogen/creatinine mass ratio 13 NRG Serum or plasma creatinine measurement with calculation of estimated glomerular filtration rate 26 NRG Serum or plasma glucose measurement (mass/volume) 244 mg/dL 70-105 Serum or plasma calcium measurement (mass/volume) 7.6 mg/dL 8.5-10.1 Serum or plasma albumin measurement (mass/volume) 2.6 g/dL 3.2-4.5 Serum or plasma phosphate measurement (mass/volume) 1.6 mg/dL 2.3-4.7 Automated blood complete blood count (hemogram) panel - 04/16/17 05:15 Blood leukocytes automated count (number/volume) 13.7 10*3/uL 4.3-11.0 Blood erythrocytes automated count (number/volume) 2.90 10*6/uL 4.35-5.85 Venous blood hemoglobin measurement (mass/volume) 8.7 g/dL 11.5-16.0 Blood hematocrit (volume fraction) 27 % 35-52 Automated erythrocyte mean corpuscular volume 92 [foz_us] 80-99 Automated erythrocyte mean corpuscular hemoglobin (mass per erythrocyte) 30 pg 25-34 Automated erythrocyte mean corpuscular hemoglobin concentration measurement ( mass/volume) 33 g/dL 32-36 Automated erythrocyte distribution width ratio 17.2 % 10.0-14.5 Automated blood platelet count (count/volume) 147 10*3/uL 130-400 Automated blood platelet mean volume measurement 11.2 [foz_us] 7.4-10.4 Comprehensive metabolic panel - 04/16/17 05:15 Serum or plasma sodium measurement (moles/volume) 139 mmol/L 135-145 Serum or plasma potassium measurement (moles/volume) 4.0 mmol/L 3.6-5.0 Serum or plasma chloride measurement (moles/volume) 117 mmol/L 98-107 Carbon dioxide 17 mmol/L 21-32 Serum or plasma anion gap determination (moles/volume) 5 mmol/L 5-14 Serum or plasma urea nitrogen measurement (mass/volume) 22 mg/dL 7-18 Serum or plasma creatinine measurement (mass/volume) 1.69 mg/dL 0.60-1.30 Serum or plasma urea nitrogen/creatinine mass ratio 13 NRG Serum or plasma creatinine measurement with calculation of estimated glomerular filtration rate 29 NRG Serum or plasma glucose measurement (mass/volume) 84 mg/dL 70-105 Serum or plasma calcium measurement (mass/volume) 7.8 mg/dL 8.5-10.1 Serum or plasma total bilirubin measurement (mass/volume) 0.4 mg/dL 0.1-1.0 Serum or plasma alkaline phosphatase measurement (enzymatic activity/volume) 52 U/L 40-136 Serum or plasma aspartate aminotransferase measurement (enzymatic activity/ volume) 26 U/L 5-34 Serum or plasma alanine aminotransferase measurement (enzymatic activity/volume ) 15 U/L 0-55 Serum or plasma protein measurement (mass/volume) 5.4 g/dL 6.4-8.2 Serum or plasma albumin measurement (mass/volume) 2.2 g/dL 3.2-4.5 Magnesium - 04/16/17 05:15 Magnesium 1.9 mg/dL 1.8-2.4 Automated blood complete blood count (hemogram) panel - 04/17/17 05:00 Blood leukocytes automated count (number/volume) 13.4 10*3/uL 4.3-11.0 Blood erythrocytes automated count (number/volume) 2.60 10*6/uL 4.35-5.85 Venous blood hemoglobin measurement (mass/volume) 7.8 g/dL 11.5-16.0 Blood hematocrit (volume fraction) 24 % 35-52 Automated erythrocyte mean corpuscular volume 94 [foz_us] 80-99 Automated erythrocyte mean corpuscular hemoglobin (mass per erythrocyte) 30 pg 25-34 Automated erythrocyte mean corpuscular hemoglobin concentration measurement ( mass/volume) 32 g/dL 32-36 Automated erythrocyte distribution width ratio 17.2 % 10.0-14.5 Automated blood platelet count (count/volume) 143 10*3/uL 130-400 Automated blood platelet mean volume measurement 11.1 [foz_us] 7.4-10.4 Comprehensive metabolic panel - 04/17/17 05:00 Serum or plasma sodium measurement (moles/volume) 138 mmol/L 135-145 Serum or plasma potassium measurement (moles/volume) 3.9 mmol/L 3.6-5.0 Serum or plasma chloride measurement (moles/volume) 116 mmol/L 98-107 Carbon dioxide 15 mmol/L 21-32 Serum or plasma anion gap determination (moles/volume) 7 mmol/L 5-14 Serum or plasma urea nitrogen measurement (mass/volume) 19 mg/dL 7-18 Serum or plasma creatinine measurement (mass/volume) 1.59 mg/dL 0.60-1.30 Serum or plasma urea nitrogen/creatinine mass ratio 12 NRG Serum or plasma creatinine measurement with calculation of estimated glomerular filtration rate 31 NRG Serum or plasma glucose measurement (mass/volume) 117 mg/dL 70-105 Serum or plasma calcium measurement (mass/volume) 7.4 mg/dL 8.5-10.1 Serum or plasma total bilirubin measurement (mass/volume) 0.3 mg/dL 0.1-1.0 Serum or plasma alkaline phosphatase measurement (enzymatic activity/volume) 52 U/L 40-136 Serum or plasma aspartate aminotransferase measurement (enzymatic activity/ volume) 22 U/L 5-34 Serum or plasma alanine aminotransferase measurement (enzymatic activity/volume ) 12 U/L 0-55 Serum or plasma protein measurement (mass/volume) 4.9 g/dL 6.4-8.2 Serum or plasma albumin measurement (mass/volume) 2.2 g/dL 3.2-4.5 RED CELLS LEUKO REDUCED AS1 - 04/17/17 09:30 RED CELLS LEUKO REDUCED AS1 TRANSFUSED 04/17/17 1543 [facility] Blood type T Indirect antibody screen panel - 04/17/17 09:30 ABO+Rh group OP NRG Transfusion band number [id number] [facility] Blood group antibody screen NEGATIVE NR Whole blood hemoglobin and hematocrit panel - 04/17/17 18:30 Venous blood hemoglobin measurement (mass/volume) 9.9 g/dL 11.5-16.0 Blood hematocrit (volume fraction) 30 % 35-52 Automated blood complete blood count (hemogram) panel - 04/18/17 06:30 Blood leukocytes automated count (number/volume) 11.8 10*3/uL 4.3-11.0 Blood erythrocytes automated count (number/volume) 3.57 10*6/uL 4.35-5.85 Venous blood hemoglobin measurement (mass/volume) 10.7 g/dL 11.5-16.0 Blood hematocrit (volume fraction) 32 % 35-52 Automated erythrocyte mean corpuscular volume 90 [foz_us] 80-99 Automated erythrocyte mean corpuscular hemoglobin (mass per erythrocyte) 30 pg 25-34 Automated erythrocyte mean corpuscular hemoglobin concentration measurement ( mass/volume) 33 g/dL 32-36 Automated erythrocyte distribution width ratio 18.1 % 10.0-14.5 Automated blood platelet count (count/volume) 152 10*3/uL 130-400 Automated blood platelet mean volume measurement 10.8 [foz_us] 7.4-10.4 Comprehensive metabolic panel - 04/18/17 06:30 Serum or plasma sodium measurement (moles/volume) 139 mmol/L 135-145 Serum or plasma potassium measurement (moles/volume) 4.3 mmol/L 3.6-5.0 Serum or plasma chloride measurement (moles/volume) 116 mmol/L 98-107 Carbon dioxide 18 mmol/L 21-32 Serum or plasma anion gap determination (moles/volume) 5 mmol/L 5-14 Serum or plasma urea nitrogen measurement (mass/volume) 19 mg/dL 7-18 Serum or plasma creatinine measurement (mass/volume) 1.56 mg/dL 0.60-1.30 Serum or plasma urea nitrogen/creatinine mass ratio 12 NRG Serum or plasma creatinine measurement with calculation of estimated glomerular filtration rate 31 NRG Serum or plasma glucose measurement (mass/volume) 95 mg/dL 70-105 Serum or plasma calcium measurement (mass/volume) 8.0 mg/dL 8.5-10.1 Serum or plasma total bilirubin measurement (mass/volume) 0.5 mg/dL 0.1-1.0 Serum or plasma alkaline phosphatase measurement (enzymatic activity/volume) 59 U/L 40-136 Serum or plasma aspartate aminotransferase measurement (enzymatic activity/ volume) 32 U/L 5-34 Serum or plasma alanine aminotransferase measurement (enzymatic activity/volume ) 18 U/L 0-55 Serum or plasma protein measurement (mass/volume) 5.6 g/dL 6.4-8.2 Serum or plasma albumin measurement (mass/volume) 2.3 g/dL 3.2-4.5 Whole blood hemoglobin and hematocrit panel - 04/19/17 05:55 Venous blood hemoglobin measurement (mass/volume) 11.4 g/dL 11.5-16.0 Blood hematocrit (volume fraction) 34 % 35-52 Whole blood basic metabolic panel - 04/19/17 05:55 Serum or plasma sodium measurement (moles/volume) 139 mmol/L 135-145 Serum or plasma potassium measurement (moles/volume) 4.1 mmol/L 3.6-5.0 Serum or plasma chloride measurement (moles/volume) 114 mmol/L 98-107 Carbon dioxide 17 mmol/L 21-32 Serum or plasma anion gap determination (moles/volume) 8 mmol/L 5-14 Serum or plasma urea nitrogen measurement (mass/volume) 19 mg/dL 7-18 Serum or plasma creatinine measurement (mass/volume) 1.54 mg/dL 0.60-1.30 Serum or plasma urea nitrogen/creatinine mass ratio 12 NRG Serum or plasma creatinine measurement with calculation of estimated glomerular filtration rate 32 NRG Serum or plasma glucose measurement (mass/volume) 103 mg/dL 70-105 Serum or plasma calcium measurement (mass/volume) 8.1 mg/dL 8.5-10.1 Complete blood count (CBC) with automated white blood cell (WBC) differential - 05/29/17 10:15 Blood leukocytes automated count (number/volume) 6.9 10*3/uL 4.3-11.0 Blood erythrocytes automated count (number/volume) 3.28 10*6/uL 4.35-5.85 Venous blood hemoglobin measurement (mass/volume) 9.7 g/dL 11.5-16.0 Blood hematocrit (volume fraction) 31 % 35-52 Automated erythrocyte mean corpuscular volume 95 [foz_us] 80-99 Automated erythrocyte mean corpuscular hemoglobin (mass per erythrocyte) 30 pg 25-34 Automated erythrocyte mean corpuscular hemoglobin concentration measurement ( mass/volume) 31 g/dL 32-36 Automated erythrocyte distribution width ratio 16.2 % 10.0-14.5 Automated blood platelet count (count/volume) 221 10*3/uL 130-400 Automated blood platelet mean volume measurement 12.2 [foz_us] 7.4-10.4 Automated blood neutrophils/100 leukocytes 58 % 42-75 Automated blood lymphocytes/100 leukocytes 31 % 12-44 Blood monocytes/100 leukocytes 7 % 0-12 Automated blood eosinophils/100 leukocytes 3 % 0-10 Automated blood basophils/100 leukocytes 1 % 0-10 Blood neutrophils automated count (number/volume) 4.1 10*3 1.8-7.8 Blood lymphocytes automated count (number/volume) 2.2 10*3 1.0-4.0 Blood monocytes automated count (number/volume) 0.5 10*3 0.0-1.0 Automated eosinophil count 0.2 10*3/uL 0.0-0.3 Automated blood basophil count (count/volume) 0.1 10*3/uL 0.0-0.1 Serum or plasma renal function panel (Na, K, Cl, CO2, BUN, Cr, glucose,Ca, phos , alb) - 05/29/17 10:15 Serum or plasma sodium measurement (moles/volume) 141 mmol/L 135-145 Serum or plasma potassium measurement (moles/volume) 4.0 mmol/L 3.6-5.0 Serum or plasma chloride measurement (moles/volume) 103 mmol/L 98-107 Carbon dioxide 27 mmol/L 21-32 Serum or plasma anion gap determination (moles/volume) 11 mmol/L 5-14 Serum or plasma urea nitrogen measurement (mass/volume) 63 mg/dL 7-18 Serum or plasma creatinine measurement (mass/volume) 2.50 mg/dL 0.60-1.30 Serum or plasma urea nitrogen/creatinine mass ratio 25 NRG Serum or plasma creatinine measurement with calculation of estimated glomerular filtration rate 18 NRG Serum or plasma glucose measurement (mass/volume) 91 mg/dL 70-105 Serum or plasma calcium measurement (mass/volume) 10.0 mg/dL 8.5-10.1 Serum or plasma albumin measurement (mass/volume) 3.7 g/dL 3.2-4.5 Serum or plasma phosphate measurement (mass/volume) 3.9 mg/dL 2.3-4.7 Serum iron and total iron binding capacity panel - 05/29/17 10:15 Serum or plasma iron measurement (mass/volume) 202 % 35- 180 Total iron binding capacity and transferrin saturation measurement 53 % 15-50 Iron binding capacity [mass/volume] in serum or plasma 380 % 280-380 UIBC (unsaturated iron binding capacity) 178 % NRG Serum or plasma ferritin measurement (mass/volume) 1704.0 % 15.0-150.0 Serum or plasma intact pararthyroid hormone measurement (mass/volume) - 10:15 Serum or plasma intact parathyroid hormone measurement (mass/volume) 22.0 pg/mL 10.0-65.0 Bio-intact parathyroid hormone (PTH) measurement with calcium 9.9 % 8.5-10.5 Complete urinalysis with reflex to culture - 05/29/17 12:00 Urine color determination YELLOW NRG Urine clarity determination VERY CLOUDY NRG Urine pH measurement by test strip 5 5-9 Specific gravity of urine by test strip 1.010 1.016- 1.022 Urine protein assay by test strip, semi-quantitative 2+ NEGATIVE Urine glucose detection by automated test strip NEGATIVE NEGATIVE Erythrocytes detection in urine sediment by light microscopy 3+ NEGATIVE Urine ketones detection by automated test strip NEGATIVE NEGATIVE Urine nitrite detection by test strip NEGATIVE NEGATIVE Urine total bilirubin detection by test strip NEGATIVE NEGATIVE Urine urobilinogen measurement by automated test strip (mass/volume) NORMAL NORMAL Urine leukocyte esterase detection by dipstick 3+ NEGATIVE Automated urine sediment erythrocyte count by microscopy (number/high power field) [HPF] NRG Automated urine sediment leukocyte count by microscopy (number/high power field ) TNTC NRG Bacteria detection in urine sediment by light microscopy LARGE NRG Crystals detection in urine sediment by light microscopy NONE NRG Casts detection in urine sediment by light microscopy NONE NRG Mucus detection in urine sediment by light microscopy NEGATIVE NRG Complete urinalysis with reflex to culture YES NRG Urine protein/creatinine mass ratio - 05/29/17 12:00 Urine protein measurement (mass/volume) 32 mg/dL 6-12 Urine creatinine measurement (mass/volume) 56 mg/dL 30- 125 Urine protein/creatinine mass ratio 0.57 NRG Bacterial urine culture - 05/29/17 12:00 Bacterial urine culture [id number] NRG COLONY COUNT >100,000/ML NRG FTX;REPORTABLE SENSITIVITY REPORTED 05/31 07:30 NRG Bacterial susceptibility panel - 05/29/17 12:00 Gentamicin susceptibility test by minimum inhibitory concentration < = NRG Trimethoprim/sulfamethoxazole susceptibility test by minimum inhibitoryconcentration <= NRG Ampicillin susceptibility test by minimum inhibitory concentration > = NRG Tobramycin susceptibility test by minimum inhibitory concentration < = NRG Cefazolin susceptibility test by minimum inhibitory concentration < = NRG Ceftriaxone susceptibility test by minimum inhibitory concentration <= NRG Ampicillin/sulbactam susceptibility test by minimum inhibitory concentration 16 NRG Piperacillin/tazobactam susceptibility test by minimum inhibitory concentration <= NRG Ciprofloxacin susceptibility test by minimum inhibitory concentration >= NRG Meropenem susceptibility test by minimum inhibitory concentration < = NRG Nitrofurantoin susceptibility test by minimum inhibitory concentration <= NRG Aztreonam susceptibility test by minimum inhibitory concentration < = NRG Extended spectrum beta lactamase (ESBL) producing bacteria susceptibility test by minimum inhibitory concentration - NR Whole blood hemoglobin and hematocrit panel - 06/28/17 14:00 Venous blood hemoglobin measurement (mass/volume) 7.8 g/dL 11.5-16.0 Blood hematocrit (volume fraction) 25 % 35-52 RED CELLS LEUKO REDUCED AS1 - 06/28/17 14:00 RED CELLS LEUKO REDUCED AS1 TRANSFUSED 06/29/17 1310 NR Blood type T Indirect antibody screen panel - 06/28/17 14:00 ABO+Rh group OP NRG Transfusion band number [id number] Blood group antibody screen NEGATIVE [facility] [id number] - 06/28/17 14:00 Erythropoietin 3.8 % 2.5-18.4 Whole blood hemoglobin and hematocrit panel - 06/29/17 16:25 Venous blood hemoglobin measurement (mass/volume) 11.1 g/dL 11.5-16.0 Blood hematocrit (volume fraction) 35 % 35-52 Complete blood count (CBC) with automated white blood cell (WBC) differential - 07/26/17 17:12 Blood leukocytes automated count (number/volume) 8.0 10*3/uL 4.3-11.0 Blood erythrocytes automated count (number/volume) 3.48 10*6/uL 4.35-5.85 Venous blood hemoglobin measurement (mass/volume) 10.1 g/dL 11.5-16.0 Blood hematocrit (volume fraction) 32 % 35-52 Automated erythrocyte mean corpuscular volume 93 [foz_us] 80-99 Automated erythrocyte mean corpuscular hemoglobin (mass per erythrocyte) 29 pg 25-34 Automated erythrocyte mean corpuscular hemoglobin concentration measurement ( mass/volume) 31 g/dL 32-36 Automated erythrocyte distribution width ratio 15.8 % 10.0-14.5 Automated blood platelet count (count/volume) 355 10*3/uL 130-400 Automated blood platelet mean volume measurement 10.3 [foz_us] 7.4-10.4 Automated blood neutrophils/100 leukocytes 70 % 42-75 Automated blood lymphocytes/100 leukocytes 22 % 12-44 Blood monocytes/100 leukocytes 5 % 0-12 Automated blood eosinophils/100 leukocytes 2 % 0-10 Automated blood basophils/100 leukocytes 1 % 0-10 Blood neutrophils automated count (number/volume) 5.7 10*3 1.8-7.8 Blood lymphocytes automated count (number/volume) 1.8 10*3 1.0-4.0 Blood monocytes automated count (number/volume) 0.4 10*3 0.0-1.0 Automated eosinophil count 0.2 10*3/uL 0.0-0.3 Automated blood basophil count (count/volume) 0.1 10*3/uL 0.0-0.1 Comprehensive metabolic panel - 07/26/17 17:12 Serum or plasma sodium measurement (moles/volume) 138 mmol/L 135-145 Serum or plasma potassium measurement (moles/volume) 3.7 mmol/L 3.6-5.0 Serum or plasma chloride measurement (moles/volume) 100 mmol/L 98-107 Carbon dioxide 31 mmol/L 21-32 Serum or plasma anion gap determination (moles/volume) 7 mmol/L 5-14 Serum or plasma urea nitrogen measurement (mass/volume) 61 mg/dL 7-18 Serum or plasma creatinine measurement (mass/volume) 2.78 mg/dL 0.60-1.30 Serum or plasma urea nitrogen/creatinine mass ratio 22 NRG Serum or plasma creatinine measurement with calculation of estimated glomerular filtration rate 16 NRG Serum or plasma glucose measurement (mass/volume) 165 mg/dL 70-105 Serum or plasma calcium measurement (mass/volume) 9.0 mg/dL 8.5-10.1 Serum or plasma total bilirubin measurement (mass/volume) 0.5 mg/dL 0.1-1.0 Serum or plasma alkaline phosphatase measurement (enzymatic activity/volume) 67 U/L 40-136 Serum or plasma aspartate aminotransferase measurement (enzymatic activity/ volume) 37 U/L 5-34 Serum or plasma alanine aminotransferase measurement (enzymatic activity/volume ) 17 U/L 0-55 Serum or plasma protein measurement (mass/volume) 7.7 g/dL 6.4-8.2 Serum or plasma albumin measurement (mass/volume) 3.5 g/dL 3.2-4.5 Blood type T Indirect antibody screen panel - 07/26/17 17:12 ABO+Rh group OP [facility] Transfusion band number [id number] [facility] Blood group antibody screen NEGATIVE [facility] Serum or plasma renal function panel (Na, K, Cl, CO2, BUN, Cr, glucose,Ca, phos , alb) - 11/23/17 10:54 Serum or plasma sodium measurement (moles/volume) 135 mmol/L 135-145 Serum or plasma potassium measurement (moles/volume) 4.3 mmol/L 3.6-5.0 Serum or plasma chloride measurement (moles/volume) 100 mmol/L 98-107 Carbon dioxide 30 mmol/L 21-32 Serum or plasma anion gap determination (moles/volume) 5 mmol/L 5-14 Serum or plasma urea nitrogen measurement (mass/volume) 35 mg/dL 7-18 Serum or plasma creatinine measurement (mass/volume) 2.67 mg/dL 0.60-1.30 Serum or plasma urea nitrogen/creatinine mass ratio 13 NR Serum or plasma creatinine measurement with calculation of estimated glomerular filtration rate 17 [facility] Serum or plasma glucose measurement (mass/volume) 87 mg/dL 70-105 Serum or plasma calcium measurement (mass/volume) 9.2 mg/dL 8.5-10.1 Serum or plasma albumin measurement (mass/volume) 3.5 g/dL 3.2-4.5 Serum or plasma phosphate measurement (mass/volume) 4.4 mg/dL 2.3-4.7 Whole blood hemoglobin and hematocrit panel - 11/23/17 10:54 Venous blood hemoglobin measurement (mass/volume) 9.6 g/dL 11.5-16.0 Blood hematocrit (volume fraction) 30 % 35-52 Serum iron and total iron binding capacity panel - 11/23/17 10:54 Serum or plasma iron measurement (mass/volume) 153 % 35- 180 Total iron binding capacity and transferrin saturation measurement 66 % 15-50 Iron binding capacity [mass/volume] in serum or plasma 231 % 280-380 UIBC (unsaturated iron binding capacity) 78 % 55-450 Serum or plasma ferritin measurement (mass/volume) 1398.0 % 15.0-150.0 Encounters ACCT No. Visit Date/Time Discharge Status Pt. Type Provider Facility Loc./Unit Complaint [id number] 11/28/2017 09:05:00 11/28/2017 13:40:00 DIS Outpatient ADARSH DIOP DO [facility] ENDO IRON DEF ANEMIA [id number] 11/23/2017 12:00:00 11/23/2017 12:47:00 DIS Outpatient ADARSH DIOP DO [facility] PREOP COLONOSCOPY/EGD [id number] 07/26/2017 16:52:00 07/26/2017 23:59:59 CLS Outpatient GURMEET BOB APRN [facility] LAB ANEMIA [id number] 07/18/2017 10:12:00 07/18/2017 15:30:00 DIS Outpatient ADARSH DIOP DO [facility] ENDO IRON DEF. ANEMIA [id number] 07/16/2017 02:38:00 07/16/2017 23:59:59 CLS Preadmit ADITHYA ODRADO MD [facility] ANEMIA,CHRONIC RENAL DI, [id number] 06/29/2017 09:25:00 07/15/2017 00:01:00 DIS Outpatient ADITHYA DORADO MD [facility] ANEMIA,CHRONIC RENAL DI, [id number] 07/14/2017 05:37:00 07/14/2017 11:22:00 DIS Outpatient ADARSH DIOP DO [facility] PREOP COLONOSCOPY [id number] 06/13/2017 08:03:00 06/13/2017 10:45:00 DIS Outpatient ADARSH DIOP DO [facility] ENDO UGI BLEED [id number] 06/12/2017 11:00:00 06/12/2017 23:59:59 CLS Outpatient ADARSH DIOP DO [facility] PREOP GI BLEED [id number] 05/29/2017 10:33:00 05/29/2017 23:59:59 CLS Outpatient KEITH BEAUCHAMP NP-C [facility] CVS CKD STAGE III, HYPERCALCEMIA,PROTEINURIA,UTI [id number] 04/14/2017 09:18:00 04/19/2017 10:45:00 DIS Inpatient ADITHYA DORADO MD [facility] 4TH SWB-GASTROINTESTINAL BLEED ANEMIA COUGH UTI [id number] 04/09/2017 18:00:00 04/14/2017 09:01:00 DIS Inpatient CHIKIS DO ADARSH Kelin [facility] 4TH UPPER GI BLEED [id number] 03/30/2017 20:22:00 03/30/2017 23:59:59 CLS Outpatient ADITHYA DORADO MD [facility] CVS R/O C-DIFF, DIAHREA [id number] 03/07/2017 07:19:00 03/07/2017 23:59:59 CLS Outpatient ADITHYA DORADO MD [facility] RAD DIARRHEA,ABD DISCOMFORT [id number] 11/22/2016 15:43:00 11/22/2016 23:59:59 CLS Outpatient MIHAELA ALVARADOC ALI FACP CCDS [facility] RAD HTN,CAD,LT LEG CLAUDICATION [id number] 03/31/2016 23:11:00 04/01/2016 00:53:00 DIS Emergency TAHIRA FISCHER DO Kelin [facility] ER FELL,RT SIDE RIB PAIN,RT HIP PAIN [id number] 01/26/2016 10:47:00 01/26/2016 23:59:59 CLS Outpatient MIHAELA STOVER FACGabe, ALI FACP CCDS [facility] CARD SOA,CAD, ABNORMAL EKG [id number] 01/22/2016 13:14:00 01/22/2016 23:59:59 CLS Outpatient MIHAELA STOVER FACC, ALI FACP CCDS [facility] CARD SOA,CAD, ABNORMAL EKG [id number] 08/06/2015 10:31:00 08/06/2015 23:59:59 CLS Outpatient KEITH BEAUCHAMP [facility] LAB HLD,ANEMIA,KIDNEY STAGE III,VIT D DEF [id number] 07/07/2015 21:50:00 07/09/2015 17:00:00 DIS Inpatient ADITHYA DORADO MD [facility] SURGICAL UTI;ALTERED MENTAL STATUS;HYPOXIA; [id number] 06/01/2015 00:11:00 06/01/2015 23:59:59 CLS Preadmit KEITH BEAUCHAMP [employer]-C [facility] LAB CKD, ANEMIA,HTN [id number] 03/02/2015 11:28:00 05/31/2015 00:01:00 DIS Outpatient KEITH BEAUCHAMP [employer] [facility] LAB CKD, ANEMIA,HTN [id number] 04/09/2015 10:23:00 04/09/2015 23:59:59 CLS Outpatient KEITH BEAUCHAMP [employer] [facility] LAB CKD STAGE III,VIT D DEF, PROTEINURIA,ANEMIA CKD,WENDY [id number] 11/11/2014 11:28:00 11/11/2014 23:59:59 CLS Outpatient SILVIANO SOSA MD [facility] LAB CKD STAGE III,VIT D DEF,JVXBASUGJG0O,ANEMIA,RENAL [id number] 09/09/2014 09:30:00 09/09/2014 23:59:59 CLS Outpatient ADITHYA DORADO MD [facility] LAB HTN,HLP,ROUTINE EXAM, [employer] MED USE [id number] 05/20/2014 12:00:00 05/20/2014 23:59:59 CLS Outpatient ADITHYA DORADO MD [facility] LAB HTN,HYPERLIPIDEMIA, MCC MED USE [id number] 04/28/2014 12:00:00 04/28/2014 23:59:59 CLS Outpatient SILVIANO SOSA MD [facility] LAB CKD STAGE III,VIT D DEF,HTN, [id number] 03/26/2014 14:41:00 03/26/2014 23:59:59 CLS Outpatient ADITHYA DORADO MD [facility] RAD R HIP PAIN,SCIATTA, GATT INSTABILITY,BACK PAIN [id number] 03/19/2014 16:43:00 03/19/2014 17:11:00 DIS Emergency ZAK LIMA APRN [facility] ER R LEG HURT [id number] 12/23/2013 10:47:00 12/23/2013 23:59:59 CLS Outpatient SILVIANO SOSA MD [facility] LAB CKD III,VIT D FDFICIENCY,PROTEINURIA,ANEMIA,HTN [id number] 10/30/2013 12:11:00 10/30/2013 23:59:59 CLS Outpatient ADITHYA DORADO MD [facility] RAD COUGH [id number] 08/30/2013 07:31:00 08/30/2013 13:30:00 DIS Out[facility] [id number] 08/20/2013 12:04:00 08/20/2013 23:59:59 CLS Outpatient MATILDE UNDERWOOD DPM [facility] PREOP LEFT BRENDENERTOE [id number] 08/19/2013 13:03:00 08/19/2013 23:59:59 CLS Outpatient SILVIANO SOSA MD [facility] LAB PROTEINURIA,ANEMIA CKD,HYPERTENSION, [id number] 07/15/2013 11:58:00 07/15/2013 23:59:59 CLS Outpatient SILVIANO SOSA MD [facility] LAB SKD IV [id number] 06/07/2013 12:17:00 06/07/2013 23:59:59 CLS Outpatient SILVIANO SOSA MD [facility] LAB PROTEINURIA,ANEMIA, HTN,CKD,RENAL OSTEODYSTROPHY [id number] 03/03/2013 09:42:00 05/30/2013 00:01:00 DIS Outpatient SILVIANO SOSA MD [facility] LAB BENIGN ESSENTIAL KIDNEY DISEASE,PROTEIMURIA [id number] 05/06/2013 13:09:00 05/06/2013 23:59:59 CLS Outpatient ADITHYA DORADO MD [facility] RAD COUGH [id number] 04/11/2013 12:04:00 04/11/2013 23:59:59 CLS Outpatient ADITHYA DORADO MD [facility] RAD HIP PAIN,PELVIS PAIN POST FALL [id number] 03/15/2013 11:14:00 03/15/2013 23:59:59 CLS Outpatient ADITHYA DORADO MD [facility] LAB HYPERLIPIDEMIA,HTN [id number] 12/13/2017 12:04:00 ACT Outpatient KEITH BEAUCHAMP [facility] CHRONIC KIDNEY DISEASE N18.3,ANEMIA D64.9 [id number] 01/14/2016 10:13:00 Document Registration [id number] 01/02/2015 16:28:00 Document Registration [id number] 05/31/2013 00:00:00 Document Registration [id number] 12/08/2012 11:00:00 Document Registration [id number] 12/05/2012 10:17:00 Document Registration [id number] 11/08/2012 08:59:00 Document Registration [id number] 11/05/2012 09:00:00 Document Registration [id number] 10/31/2012 11:32:00 Document Registration [id number] 10/11/2012 00:00:00 Document Registration [id number] 09/12/2012 00:00:00 Document Registration [id number] 07/20/2012 11:13:00 Document Registration [id number] 07/12/2012 10:32:00 Document Registration [id number] 06/14/2012 12:53:00 Document Registration [id number] 05/30/2012 15:39:00 Document Registration [id number] 03/29/2012 09:48:00 Document Registration [id number] 03/20/2012 15:48:00 Document Registration [id number] 12/29/2011 08:53:00 Document Registration [id number] 12/13/2011 09:58:00 Document Registration [id number] 12/07/2011 11:23:00 Document Registration [id number] 09/02/2011 11:10:00 Document Registration [id number] 08/20/2011 14:14:00 Document Registration [id number] 08/12/2011 05:49:00 Document Registration [id number] 08/08/2011 08:47:00 Document Registration [id number] 08/04/2011 13:17:00 Document Registration [id number] 07/11/2011 11:19:00 Document Registration [id number] 07/11/2011 11:16:00 Document Registration [id number] 06/28/2011 12:52:00 Document Registration [id number] 06/21/2011 07:02:00 Document Registration [id number] 06/16/2011 11:13:00 Document Registration
[2017-12-14 14:17] LABS: BILIRUBIN,URINE NEGATIVE (NEGATIVE); CLARITY,URINE SLIGHTLY CLOUDY; COLOR,URINE YELLOW; GLUCOSE, URINE (UA) NEGATIVE (NEGATIVE); KETONES,URINE NEGATIVE (NEGATIVE); LEUKOCYTE ESTERASE ,URINE 1+ (NEGATIVE); NITRITE,URINE NEGATIVE (NEGATIVE); PH,URINE 6 (5-9); PROTEIN,URINE 3+ (NEGATIVE); UROBILINOGEN,URINE NORMAL (NORMAL)
[2017-12-14 14:22] LABS: ALBUMIN 3.7 GM/DL (3.2-4.5); BILIRUBIN,TOTAL 0.5 MG/DL (0.1-1.0); CALCIUM 9.3 MG/DL (8.5-10.1); CREATININE SERUM 2.81 MG/DL (0.60-1.30); POTASSIUM 4.4 MMOL/L (3.6-5.0); TOTAL PROTEIN 6.8 GM/DL (6.4-8.2)
[2017-12-14 14:25] LABS: BACTERIA,URINE LARGE /HPF; RBC,URINE 0-2 /HPF; SQUAMOUS EPITHELIAL CELL,UR 25-50 /HPF; WBC,URINE 25-50 /HPF
--- NOTE | 2017-12-14 14:47 | Diagnostic Imaging Report ---
PATIENT HISTORY: Chest pain. TECHNIQUE: Single frontal view of the chest. COMPARISON: 04/16/2017. FINDINGS: There is a small left pleural effusion with associated left basilar airspace opacities. This appears stable since the prior study. The previously seen airspace opacities in the right upper lobe appear improved, with mild residual interstitial opacities, may represent scarring. Calcified lymph nodes are seen in the akira bilaterally. There is aortic atherosclerosis. The heart is mildly large. No pneumothorax is seen. There is mild right convex curvature of the lower thoracic spine. IMPRESSION: 1. Stable small left pleural effusion with associated left basilar airspace opacities. 2. Improved opacities in the right upper lobe, there may be mild residual scarring. Dictated by: Dictated on workstation # [id number]
--- NOTE | 2017-12-14 15:10 | ED General ---
General Chief Complaint: Abdominal/GI Problems Stated Complaint: CP Nursing Triage Note: PT CO OF CHEST PAIN TO EMS, PT CO OF UPPER BACK PAIN TO THIS RN PT HAS SL IN PLACE L AC BY EMS, PT IS EXTREMELY WET FROM URINE. PT CO OF WEAKNESS STARTING TODAY. PT STATES WEARS O2 AT NITE AT 2L Nursing Sepsis Screen: No Definite Risk Source of Information: Patient, EMS History of Present Illness Date Seen by Provider: Dec 14, 2017 Time Seen by Provider: 14:30 Initial Comments The patient is a 87-year-old white female who is rather vague about what brought her here. She came by ambulance. We were at first told that she had chest pain. She however complains more of pain in the back and then rather generalized pain. She is unable to clearly tell me whether she has had previous heart trouble or not. She was absolutely soaked in urine when she arrived. Timing/Duration: 4-6 Hours Allergies and Home Medications Allergies Coded Allergies: codeine (Verified Allergy, Unknown, 12/18/08) morphine (Verified Allergy, Unknown, 12/18/08) prednisone (Unverified Allergy, Unknown, 03/19/14) propoxyphene napsylate (Unverified Allergy, Unknown, 03/19/14) sulfamethoxazole (Verified Allergy, Unknown, 12/18/08) trimethoprim (Verified Allergy, Unknown, 12/18/08) Home Medications Acetaminophen 650 Mg Tablet.er, 650 MG PO Q6H PRN for PAIN-MILD, (Reported) Amlodipine Besylate 5 Mg Tablet, 5 MG PO DAILY, (Reported) Ascorbate Calcium 500 Mg Tablet, 500 MG PO DAILY, (Reported) Budesonide/Formoterol Fumarate 10.2 Gm Hfa.aer.ad, 2 PUFF IH HS, (Reported) Cholecalciferol (Vitamin D3) 5,000 Unit Tablet, 5,000 UNIT PO DAILY, (Reported) Citalopram Hydrobromide 10 Mg Tablet, 10 MG PO DAILY, (Reported) Diphenoxylate HCl/Atropine 1 Each Tablet, 1 TAB PO Q6H PRN for DIARRHEA, ( Reported) Fenofibric Acid (Choline) 135 Mg Capsule.dr, 135 MG PO HS, (Reported) Furosemide 40 Mg Tablet, 40 MG PO DAILY, (Reported) Lovastatin 40 Mg Tablet, 40 MG PO HS, (Reported) Magnesium Oxide 400 Mg Tablet, 400 MG PO BID, (Reported) Metoprolol Succinate 50 Mg Tab.er.24h, 50 MG PO BID, (Reported) Multivitamin with Minerals 1 Each Tablet, 1 TAB PO DAILY, (Reported) Ondansetron HCl 4 Mg Tab, 4 MG PO Q6H PRN for NAUSEA/VOMITING-1ST LINE, ( Reported) Pantoprazole Sodium 40 Mg Tablet.dr, 40 MG PO BID, (Reported) Potassium Chloride 20 Meq Tablet.er, 20 MEQ PO twice a week, (Reported) Sucralfate 1 Gm Tablet, 1 GM PO ACHS, (Reported) Patient Home Medication List Home Medication List Reviewed: Yes Constitutional: see HPI EENTM: no symptoms reported Respiratory: dyspnea on exertion Cardiovascular: chest pain Gastrointestinal: no symptoms reported Genitourinary: incontinence, other (chronic kidney disease with baseline creatinine in the 2.7 range) Musculoskeletal: back pain, muscle weakness Skin: no symptoms reported Psychiatric/Neurological: No Symptoms Reported Hematologic/Lymphatic: No Symptoms Reported, Other (history of anemia confirmed with examination of previous lab. This is with high ferritin and normocytic and normochromic indices) Immunological/Allergic: no symptoms reported Past Nvjcjpi-Ogfqxk-Byrijh Hx Patient Social History Alcohol Use: Denies Use Recreational Drug Use: No Smoking Status: Never a Smoker 2nd Hand Smoke Exposure: Yes Recent Foreign Travel: No Contact w/Someone Who Travel: No Recent Infectious Disease Expo: No Recent Hopitalizations: No Immunizations Up To Date Tetanus Booster (TDap): Less than 5yrs Date of Pneumonia Vaccine: Oct 16, 2010 Date of Influenza Vaccine: Aug 20, 2013 Seasonal Allergies Seasonal Allergies: No Surgeries History of Surgeries: Yes (LEFT HAMMERTOE REPAIR, VENTRAL HERNIA REPAIR) Surgeries: Abdominal, Bladder Surgery, Eye Surgery, Gallbladder, Hysterectomy, Joint Replacement, Orthopedic Respiratory History of Respiratory Disorde: Yes (O2 AT 2L AT NIGHT) Respiratory Disorders: Pneumonia Cardiovascular 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) Cardiac Disorders: High Cholesterol, Hypertension Neurological History of Neurological Disord: Yes Neurological Disorders: Stroke Reproductive System Hx Reproductive Disorders: No Sexually Transmitted Disease: No Female Reproductive Disorders: Denies 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, 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 Genitourinary History of Genitourinary Disor: Yes Genitourinary Disorders: Renal Failure Gastrointestinal History of Gastrointestinal Di: Yes (VENTRAL HERNIA REPAIR) Gastrointestinal Disorders: Abdominal Hernia, Gastrointestinal Bleed, C-Diff Musculoskeletal History of Musculoskeletal Dis: Yes (LUMBAR RADICULOPATHY) Musculoskeletal Disorders: Arthritis, Chronic Back Pain Endocrine History of Endocrine Disorders: No Cancer History of Cancer: Yes Cancer: Skin Psychosocial History of Psychiatric Problem: No Behavioral Health Disorders: Anxiety Integumentary History of Skin or Integumenta: No Blood Transfusions History of Blood Disorders: Yes (ANEMIA) Adverse Reaction to a Blood Tr: No Family Medical History Significant Family History: Heart Disease, Diabetes, Hypertension Family Medial History: Physical Exam Vital Signs Vital Signs - First Documented 12/14/17 13:50 Temp 97.2 Pulse 50 Resp 18 B/P (MAP) 207/88 (127) Pulse Ox 99 O2 Delivery Room Air Capillary Refill : Less Than 3 Seconds General Appearance: Other (quite elderly appearing and noted no distress) Eyes: Bilateral Eye Normal Inspection HEENT: Normal ENT Inspection Neck: Normal Inspection Respiratory: Chest Non Tender, Lungs Clear, Normal Breath Sounds, No Accessory Muscle Use, No Respiratory Distress Cardiovascular: Regular Rate, Rhythm, No Edema, No Gallop, No JVD, No Murmur, Normal Peripheral Pulses Gastrointestinal: Normal Bowel Sounds, No Organomegaly, No Pulsatile Mass, Non Tender, Soft Back: Normal Inspection Extremity: Normal Capillary Refill, Normal Inspection, Normal Range of Motion, Non Tender, No Calf Tenderness, No Pedal Edema Neurologic/Psychiatric: Other (responses are slow and vague) Skin: Normal Color, Warm/Dry Lymphatic: No Adenopathy Progress/Results/Core Measures Suspected Sepsis Recent Fever Within 48 Hours: No Infection Criteria Present: None New/Unexplained Altered Menta: No Sepsis Screen: No Definite Risk Sepsis Diagnosis: SIRS Temperature:97.2 Pulse: 50 Respiratory Rate: 18 Laboratory Tests 12/14/17 13:53: White Blood Count 5.5 Blood Pressure 207 /88 Mean: 127 Laboratory Tests 12/14/17 13:53: Creatinine 2.81H, Platelet Count 114L, Total Bilirubin 0.5 Results/Orders Lab Results Laboratory Tests Test 12/14/17 13:53 12/14/17 14:10 Range/Units White Blood Count 5.5 4.3-11.0 10^3/uL Red Blood Count 3.49 L 4.35-5.85 10^6/uL Hemoglobin 11.2 L 11.5-16.0 G/DL Hematocrit 35 35-52 % Mean Corpuscular Volume 100 H 80-99 FL Mean Corpuscular Hemoglobin 32 25-34 PG Mean Corpuscular Hemoglobin Concent 32 32-36 G/DL Red Cell Distribution Width 13.5 10.0-14.5 % Platelet Count 114 L 130-400 10^3/uL Mean Platelet Volume 11.9 H 7.4-10.4 FL Neutrophils (%) (Auto) 79 H 42-75 % Lymphocytes (%) (Auto) 15 12-44 % Monocytes (%) (Auto) 4 0-12 % Eosinophils (%) (Auto) 1 0-10 % Basophils (%) (Auto) 0 0-10 % Neutrophils # (Auto) 4.3 1.8-7.8 X 10^3 Lymphocytes # (Auto) 0.8 L 1.0-4.0 X 10^3 Monocytes # (Auto) 0.2 0.0-1.0 X 10^3 Eosinophils # (Auto) 0.0 0.0-0.3 10^3/uL Basophils # (Auto) 0.0 0.0-0.1 10^3/uL Sodium Level 139 135-145 MMOL/L Potassium Level 4.4 3.6-5.0 MMOL/L Chloride Level 105 98-107 MMOL/L Carbon Dioxide Level 21 21-32 MMOL/L Anion Gap 13 5-14 MMOL/L Blood Urea Nitrogen 44 H 7-18 MG/DL Creatinine 2.81 H 0.60-1.30 MG/DL Estimat Glomerular Filtration Rate 16 BUN/Creatinine Ratio 16 Glucose Level 109 H 70-105 MG/DL Calcium Level 9.3 8.5-10.1 MG/DL Total Bilirubin 0.5 0.1-1.0 MG/DL Aspartate Amino Transf (AST/SGOT) 29 5-34 U/L Alanine Aminotransferase (ALT/SGPT) 24 0-55 U/L Alkaline Phosphatase 80 40-136 U/L Total Protein 6.8 6.4-8.2 GM/DL Albumin 3.7 3.2-4.5 GM/DL Urine Color YELLOW Urine Clarity SLIGHTLY CLOUDY Urine pH 6 5-9 Urine Specific [place] 1.010 L 1.016-1.022 Urine Protein 3+ H NEGATIVE Urine Glucose (UA) NEGATIVE NEGATIVE Urine Ketones NEGATIVE NEGATIVE Urine Nitrite NEGATIVE NEGATIVE Urine Bilirubin NEGATIVE NEGATIVE Urine Urobilinogen NORMAL NORMAL MG/DL Urine Leukocyte Esterase 1+ H NEGATIVE Urine RBC (Auto) 1+ H NEGATIVE Urine RBC 0-2 /HPF Urine WBC 25-50 H /HPF Urine Squamous Epithelial Cells 25-50 H /HPF Urine Crystals NONE /LPF Urine Bacteria LARGE H /HPF Urine Casts NONE /LPF Urine Mucus NEGATIVE /LPF Urine Culture Indicated YES My Orders Orders - NANCY MATHIAS MD Cbc With Automated Diff (12/14/17 13:58) Comprehensive Metabolic Panel (12/14/17 13:58) Ua Culture If Indicated (12/14/17 13:58) Ekg Tracing (12/14/17 14:22) Urine Culture (12/14/17 14:10) Chest 1 View, Ap/Pa Only (12/14/17 14:28) Ceftriaxone Injection (Rocephin Injectio (12/14/17 15:15) Lidocaine 1% Injection (Xylocaine 1% Inj (12/14/17 15:15) Vital Signs/I&O Vital Sign - Last 12Hours 12/14/17 13:50 Temp 97.2 Pulse 50 Resp 18 B/P (MAP) 207/88 (127) Pulse Ox 99 O2 Delivery Room Air Capillary Refill : Less Than 3 Seconds Blood Pressure Mean: 127 Departure Communication (Admissions) Progress Notes Electrocardiogram suggests previous anterior infarct and is unchanged from previous. Chest x-ray showed improvement in comparison to previous. Laboratory shows the creatinine to be 2.8. UA shows pyuria. Impression Impression: Primary Impression: Urinary tract infection Additional Impression: renal failure, chronic Disposition: 01 HOME, SELF-CARE Condition: Stable/Unchanged Departure-Patient Inst. Decision time for Depature: 15:11 Referrals: ADITHYA DORADO MD (PCP/Family) Primary Care Physician Patient Instructions: No Instuctions Given Add. Discharge Instructions: All discharge instructions reviewed with patient and/or family. Voiced understanding. Your antibiotic shot will last 24 hours. You should start your oral antibiotics at approximately 3 o'clock tomorrow afternoon. Scripts Cefdinir (Cefdinir) 300 Mg Capsule 300 MG PO twice a day, #14 CAP Prov: NANCY MATHIAS MD 12/14/17 NANCY MATHIAS MD Dec 14, 2017 15:09
[2017-12-14] MEDS ORDERED: CEFD300C3 PO (15:13)
[2017-12-14] MEDS ORDERED: cefTRIAXone 1 GM (ROCEPHIN) VIAL IM ONE (15:15)
[2017-12-14] MEDS ORDERED: LIDOCAINE 1% INJ 20 ML (XYLOCAINE) VIAL INJ ONE (15:15)
[2017-12-14 16:13] VITALS: BP 205/87
== END 2017-12-14 16:13 | disposition home or self-care (01) ==
LOC: EDUNIT# 13:49 → ER 13:50
DX: N39.0 Urinary tract infection, site not specified (principal); I12.9 Hypertensive chronic kidney disease with stage 1 through stage 4 chronic kidney disease, or unspecified chronic kidney disease; N18.9 Chronic kidney disease, unspecified; E78.00 Pure hypercholesterolemia, unspecified; F41.9 Anxiety disorder, unspecified; I25.10 Atherosclerotic heart disease of native coronary artery without angina pectoris; Z86.73 Personal history of transient ischemic attack (TIA), and cerebral infarction without residual deficits; Z88.5 Allergy status to narcotic agent; Z82.49 Family history of ischemic heart disease and other diseases of the circulatory system; Z88.2 Allergy status to sulfonamides; Z88.8 Allergy status to other drugs, medicaments and biological substances; Z77.22 Contact with and (suspected) exposure to environmental tobacco smoke (acute) (chronic); Z87.19 Personal history of other diseases of the digestive system; Z90.710 Acquired absence of both cervix and uterus; Z85.828 Personal history of other malignant neoplasm of skin; Z87.01 Personal history of pneumonia (recurrent)
CPT/HCPCS: 36415; 71045; 80053; 81000; 85025; 87077; 87088; 87186; 96365

== ENCOUNTER 2018-02-19 14:50 | Outpatient (RCR) | payer MEDICARE, OTHER ==
[2018-02-13 15:17] VITALS: BP 174/76
[2018-02-14] MEDS: cefTRIAXone 1 GM (ROCEPHIN) VIAL IM SCH (13:38)
[2018-02-14] MEDS: LIDOCAINE 1% INJ 20 ML 20 ML VIAL INJ SCH (13:38)
[2018-02-14 13:39] VITALS: BP 169/64
[2018-02-15 14:42] VITALS: BP 153/68
[2018-02-15] MEDS: LIDOCAINE 1% INJ 20 ML 20 ML VIAL INJ SCH (14:42)
[2018-02-15] MEDS: cefTRIAXone 1 GM (ROCEPHIN) VIAL IM SCH (14:42)
[2018-02-16 14:00] VITALS: BP 129/75
[2018-02-16] MEDS: cefTRIAXone 1 GM (ROCEPHIN) VIAL IM SCH (14:08)
[2018-02-16] MEDS: LIDOCAINE 1% INJ 20 ML 20 ML VIAL INJ SCH (14:09)
[2018-02-16 15:01] LABS: CALCIUM 8.9 MG/DL (8.5-10.1); CREATININE SERUM 3.23 MG/DL (0.60-1.30); POTASSIUM 4.8 MMOL/L (3.6-5.0)
[2018-02-17 09:20] VITALS: BP 174/86
[2018-02-17] MEDS: LIDOCAINE 1% INJ 20 ML 20 ML VIAL INJ SCH (09:30)
[2018-02-17] MEDS: cefTRIAXone 1 GM (ROCEPHIN) VIAL IM SCH (09:30)
[2018-02-18 09:20] VITALS: BP 179/74
[2018-02-18] MEDS: cefTRIAXone 1 GM (ROCEPHIN) VIAL IM SCH (09:30)
[2018-02-18] MEDS: LIDOCAINE 1% INJ 20 ML 20 ML VIAL INJ SCH (09:30)
[~2018-02-19] VITALS: Ht 167.6 cm; Wt 54.4 kg
[~2018-02-19 14:50] MED LIST changes: +CEFD300C3 PO; +LIDOCAINE 1% INJ 20 ML 20 ML VIAL INJ ONE; +LIDOCAINE 1% INJ 20 ML 20 ML VIAL ONE; +LIDOCAINE 1% INJ 50 ML (XYLOCAINE) VIAL IJ ONE; +cefTRIAXone 1 GM (ROCEPHIN) VIAL IM ONE; +cefTRIAXone 1 GM (ROCEPHIN) VIAL ONE
[2018-02-19] MEDS ORDERED: cefTRIAXone 1 GM (ROCEPHIN) VIAL ONE (14:52)
[2018-02-19] MEDS ORDERED: LIDOCAINE 1% INJ 20 ML 20 ML VIAL ONE (14:52)
[2018-02-19] MEDS: cefTRIAXone 1 GM (ROCEPHIN) VIAL IM SCH (15:05)
[2018-02-19] MEDS: LIDOCAINE 1% INJ 20 ML 20 ML VIAL INJ SCH (15:05)
[2018-02-19 15:13] VITALS: BP 143/57
== END 2018-05-14 | disposition home or self-care (01) ==
LOC: SDC 14:50
PROVIDERS: ATTEND Nurse Practitioner Family
DX: N39.0 Urinary tract infection, site not specified (principal); E86.0 Dehydration; E87.5 Hyperkalemia
CPT/HCPCS: 36415; 80048; 96372

== ENCOUNTER → 2018-02-21 | Outpatient (RCR) | payer MEDICARE, OTHER ==
[2017-11-23 11:23] LABS: ALBUMIN 3.5 GM/DL (3.2-4.5); CALCIUM 9.2 MG/DL (8.5-10.1); CREATININE SERUM 2.67 MG/DL (0.60-1.30); PHOSPHORUS 4.4 MG/DL (2.3-4.7); POTASSIUM 4.3 MMOL/L (3.6-5.0)
[2017-11-23 11:28] LABS: HEMOGLOBIN 9.6 G/DL (11.5-16.0)
[2017-11-23 11:40] VITALS: BP 187/77
[2017-11-23] MEDS: DARBEPOETIN 40 MCG/ML (ARANESP) 1 ML VIAL SC SCH (11:48)
[2017-12-13 12:03] VITALS: BP 193/79
[2017-12-27 13:25] VITALS: BP 146/69
[2017-12-27] MEDS: DARBEPOETIN 40 MCG/ML (ARANESP) 1 ML VIAL SC SCH (14:16)
[2018-01-10 12:59] LABS: HEMOGLOBIN 10.9 G/DL (11.5-16.0)
[2018-01-10 13:00] VITALS: BP 150/62
[2018-01-10] MEDS: DARBEPOETIN 40 MCG/ML (ARANESP) 1 ML VIAL SC SCH (13:18)
[2018-01-10 13:19] VITALS: BP 150/62
[2018-01-24 15:27] VITALS: BP 191/68
[2018-02-07 13:20] VITALS: BP 129/55
[2018-02-07] MEDS: DARBEPOETIN 40 MCG/ML (ARANESP) 1 ML VIAL SC SCH (14:30)
[~2018-02-21] VITALS: Ht 167.6 cm; Wt 54.4 kg
[~2018-02-21] MED LIST changes: -LIDOCAINE 1% INJ 20 ML 20 ML VIAL INJ ONE; -LIDOCAINE 1% INJ 20 ML 20 ML VIAL ONE; -LIDOCAINE 1% INJ 50 ML (XYLOCAINE) VIAL IJ ONE; -cefTRIAXone 1 GM (ROCEPHIN) VIAL IM ONE; -cefTRIAXone 1 GM (ROCEPHIN) VIAL ONE
[2018-02-21 16:18] LABS: HEMOGLOBIN 10.7 G/DL (11.5-16.0)
[2018-02-21 16:41] LABS: ALBUMIN 3.5 GM/DL (3.2-4.5); CALCIUM 8.8 MG/DL (8.5-10.1); CREATININE SERUM 2.8 MG/DL (0.60-1.30); PHOSPHORUS 4.7 MG/DL (2.3-4.7); POTASSIUM 4.9 MMOL/L (3.6-5.0)
[2018-02-21] MEDS: DARBEPOETIN 40 MCG/ML (ARANESP) 1 ML VIAL SC SCH (17:05)
[2018-02-21 17:10] VITALS: BP 154/70
== END | disposition home or self-care (01) ==
LOC: SDC 11-23 10:28
PROVIDERS: ATTEND Nurse Practitioner
DX: N18.3 Chronic kidney disease, stage 3 (moderate) (principal); D63.1 Anemia in chronic kidney disease
CPT/HCPCS: 36415; 80069; 82728; 83540; 85014; 85018; 96372

== ENCOUNTER 2018-03-21 13:46 | Outpatient (RCR) | payer MEDICARE, OTHER ==
[~2018-03-21] VITALS: Ht 167.6 cm; Wt 54.4 kg
[~2018-03-21 13:46] MED LIST changes: -AMLO10TA2 PO; +AMLO10TA6 PO; -AMLO5TAB2 PO; +AMLO5TAB7 PO
[2018-03-21] MEDS ORDERED: DARBEPOETIN 40 MCG/ML (ARANESP) 1 ML VIAL SC SCH (13:53)
[2018-03-21 13:55] VITALS: BP 151/74
[2018-03-21 14:11] LABS: HEMOGLOBIN 10.4 G/DL (11.5-16.0)
== END 2018-06-19 | disposition home or self-care (01) ==
LOC: SDC 13:46
PROVIDERS: ATTEND Nurse Practitioner
DX: N18.3 Chronic kidney disease, stage 3 (moderate) (principal); D63.1 Anemia in chronic kidney disease
CPT/HCPCS: 36415; 85014; 85018; 96372